=== PATIENT | female | born 1970 | race Caucasian/White ===

== ENCOUNTER 2022-09-04 08:23 | Outpatient (OUT) | payer BC, SELFPAY ==
--- NOTE | 2022-09-04 08:36 | XR_ITS ---
The [place] [id number] Patient Name: JONATHAN BACA MRN: [id number] date: 1970 Sex: F Assigned Patient Location: [facility] Current Patient Location: [facility] Accession/Order Number: [id number] Exam Date: 09/04/2022 08:45 Report Date: 09/04/2022 09:15 At the request of: MONIKA MATTHEWS Procedure: XR lumbar spine 2-3V EXAMINATION: XR lumbar spine 2-3V HISTORY: Lumbar Radiculopathy M54.16 COMPARISON: No relevant comparison available. FINDINGS: BONES: Mild widespread spondylosis and mild to moderate facet osteoarthritis, most significant at L5-S1. No visible acute bony abnormality. DISC SPACES: Moderate narrowing L5-S1 PARASPINOUS: Negative. No paraspinous abnormality is seen. OTHER: Negative. XR/XR lumbar spine 2-3V IMPRESSION: Degenerative changes most significant at L5-S1 Electronically authenticated by: JASON LERMA Date: 09/04/2022 09:15
== END 2022-09-04 08:24 | disposition home or self-care (01) ==
LOC: RAD 08:23
PROVIDERS: PCP Family Medicine; Visit Provider Family Medicine
DX: M54.16 Radiculopathy, lumbar region (principal)
CPT/HCPCS: 72100

== ENCOUNTER 2022-09-17 14:48 | Outpatient (OUT) | payer BC, SELFPAY ==
--- NOTE | 2022-09-17 14:58 | MR_ITS ---
The [address] [address] Patient Name: JONATHAN BACA MRN: [id number] date: 1970 Sex: F Assigned Patient Location: MRI Current Patient Location: MRI Accession/Order Number: [id number] Exam Date: 09/17/2022 15:00 Report Date: 09/18/2022 06:58 At the request of: MONIKA MATTHEWS Procedure: MR lumbar spine wo con MRI LUMBAR SPINE WITHOUT CONTRAST, 09/17/2022. HISTORY: Low back pain. Left buttock pain. COMPARISON: None. TECHNIQUE: Sagittal T1, T2, STIR, axial T1 and T2 images obtained. FINDINGS: Normal alignment. No acute compression fracture. Signal in the bone marrow spaces normal. No bone marrow edema. No suspicious osseous lesions. L5-S1, severe degenerative disc disease. There is disc space narrowing and irregularity of the endplates as well as implant osteophytes. No spinal stenosis. Mild left foraminal narrowing. L4-L5, moderate facet arthropathy. Mild disc desiccation. The disc spaces normal in height. No spinal stenosis. No foraminal narrowing. L3-L4, no spinal stenosis. No foraminal narrowing. L2-L3, no spinal stenosis. No foraminal narrowing. L1-L2, no spinal stenosis. No foraminal narrowing. No abnormal signal in the conus medullaris. No paraspinal mass. MR/MR lumbar spine wo con IMPRESSION: 1. Severe degenerative disc disease at L5-S1. No spinal stenosis. Mild left foraminal narrowing. 2. No spinal stenosis or foraminal narrowing at the remainder of the lumbar levels. 3. Normal alignment. No acute compression fractures. Electronically authenticated by: JOHN PAUL WILLARD Date: 09/18/2022 06:58
== END 2022-09-17 14:49 | disposition home or self-care (01) ==
LOC: MRI 14:49
PROVIDERS: PCP Family Medicine; Visit Provider Family Medicine
DX: M54.16 Radiculopathy, lumbar region (principal); M51.37 Other intervertebral disc degeneration, lumbosacral region; M99.73 Connective tissue and disc stenosis of intervertebral foramina of lumbar region
CPT/HCPCS: 72148

== ENCOUNTER 2022-10-20 08:46 | Outpatient (OUT) | payer BC, SELFPAY ==
[2022-10-20 09:02] LABS: Basophils Percent Auto 0.5 % (0.2-2.0); Eosinophils Absolute Auto 0.1 10^3/uL (0.0-0.7); Eosinophils Percent Auto 1.2 % (0.9-7.0); Hematocrit 47.3 % (36.0-48.0); Hemoglobin 14.4 g/dL (12.0-16.0); Immature Granulocytes Abs Auto 0.02 10^3/uL (0.00-0.03); Immature Granulocytes Pct Auto 0.2 % (0.0-0.5); Lymphocytes Absolute Auto 3.2 10^3/uL (1.2-3.8); Lymphocytes Percent Auto 35.8 % (20.5-60.0); Mean Corpuscular HGB Conc 30.4 g/dL (29.9-35.2); Mean Corpuscular Hemoglobin 27.6 pg (26.7-34.0); Mean Corpuscular Volume 90.6 fL (81.0-99.0); Monocytes Absolute Auto 0.5 10^3/uL (0.3-0.8); Monocytes Percent Auto 5.5 % (1.7-12.0); Neutrophils Percent Auto 56.8 % (43.0-75.0); Platelet Count 324 10^3/uL (150-450); Red Blood Count 5.22 10^6/uL (4.20-5.40); Red Cell Distribution Width 13.2 % (11.0-15.0); White Blood Count 8.9 10^3/uL (4.0-11.0)
--- NOTE | 2022-10-20 09:40 | MM_ITS ---
Patient: JONATHAN BACA Exam Date: 10/20/2022 : 1970 Gender:F Ordering : DR MONIKA MATTHEWS . Admission #: [id number] Family : Order #: [id number] CLICK HERE TO VIEW EXAM RADIOLOGY REPORT PROCEDURE: MM TOMOSYNTHESIS SCREENING BI COMPARISON: MG MAMM SCREEN 3D DUSTIN CAD, 05/08/2020. MG MAMM SCREEN 3D DUSTIN CAD, 09/17/2021. INDICATIONS: Screening Z12.31 Calculator Name NCI Breast Cancer Risk Assessment Tool 5 Year Breast Cancer Risk 1.00% Lifetime Breast Cancer Risk 9.40% Personal Breast Cancer No Personal Ovarian Cancer No Treatments None Family Cancers None LOCATION: [facility] BREAST COMPOSITION: Scattered areas fibroglandular density. FINDINGS: DIAGNOSTIC CATEGORY 1--NEGATIVE. NO CHANGE FROM COMPARISON ASSESSMENT. Scattered benign-appearing nodules are present. Scattered benign-appearing calcifications are present. Scattered benign-appearing lymph nodes are present. RIGHT BREAST: No significant suspicious finding. Stable micro clip marker upper outer quadrant, anterior breast LEFT BREAST: No significant suspicious finding. RECOMMENDATIONS: ROUTINE MAMMOGRAM AND CLINICAL EVALUATION IN 12 MONTHS. PLEASE NOTE: A NORMAL MAMMOGRAM DOES NOT EXCLUDE THE POSSIBILITY OF BREAST CANCER. A CLINICALLY SUSPICIOUS PALPABLE LUMP SHOULD BE BIOPSIED. Dictated by: Walter Dee MD on 10/20/2022 at 11:20 Approved by: Walter Dee MD on 10/20/2022 at 11:25
[2022-10-20 09:50] LABS: Estimated Average Glucose 105 mg/dL; Glycohemoglobin A1C 5.3 % (4.5-6.2)
[2022-10-20 10:00] LABS: Chol HDL Ratio 3.7; Cholesterol 197 mg/dL (<=200); HDL Cholesterol 53 mg/dL (40-60); LDL Cholesterol Calculated 118.8 mg/dL; Thyroid Stimulating Hormone 2.466 uIU/mL (0.358-3.740); Triglycerides 126 mg/dL (<=150); VLDL CHOLESTEROL 25.2 mg/dL
== END 2022-10-20 08:47 | disposition home or self-care (01) ==
LOC: LAB 08:46
PROVIDERS: PCP Family Medicine; Visit Provider Family Medicine
DX: Z00.00 Encounter for general adult medical examination without abnormal findings (principal); Z12.31 Encounter for screening mammogram for malignant neoplasm of breast
CPT/HCPCS: 36415; 77063; 77067; 80061; 83036; 84443; 85025

== ENCOUNTER 2022-11-02 08:00 | Outpatient (OUT) | payer BC, SELFPAY ==
--- NOTE | 2022-11-02 09:05 | PM.CN ---
Consult Note: HPI Data of Consult Patient: new to practice Consult date: 11/02/22 Requesting Physician: Harish Cannon MD Primary Care Provider: Romero Dykes MD Consult Narrative Reason for consult: low back pain Narrative: pleasant 52yof who presents for evaluation. worsening low back and left hip pain, has been ongoing for years, but continues to worsen. has not had relief with chiropractor recently or provider directed home exercise program >6 weeks. lumbar mri was reviewed, which is significant for severe degenerative disc disease and facet arthropathy in lower lumbar spine. utilizes ibuprofen as needed, which helps. denies adverse medication side effects or loss of bowel or bladder control. cc:: CC: Harish Cannon MD Review of Systems ROS Status of ROS 10 or more systems reviewed and unremarkable except as noted in history and below Exam Narrative Exam Narrative: Psych-alert and oriented x 3. Attentive and appropriate, constitutionally normal, displays normal mood and affect per situation.? There are no obvious deficits in memory, reasoning, or intellect.? Skin-no obvious rashes, bruising, erythema noted to the patient's area of pain. Extremities- extremities are warm with minimal edema and palpable pulses. Lumbar-no significant tenderness to palpation noted in the lumbar spine and paraspinal musculature.? Pain is elicited with extension, and lateral rotation of the lumbar spine. Range of motion is slightly diminished with these motions due to pain. Facet loading maneuvers are positive bilaterally and do appear to be concordant with the patient's normal complaints of pain.? Coordination remains intact.? Gait remains non-antalgic. Assessment and Plan Assessment and Plan (1) Lumbar spondylosis: (2) Lumbar stenosis: Plan 52yof who presents for evaluation. failed conservative measures, as noted above. imaging reviewed, as noted above. given symptoms and imaging findings, prudent to attempt diagnostic bilateral l4-5, l5-s1 medial branch blocks under fluoroscopic guidance with intention of proceeding to radiofrequency ablation. she is in agreement. medications reviewed. no changes made, encouraged to continue ibuprofen as needed. follow up after procedure.
== END 2022-11-02 08:01 | disposition home or self-care (01) ==
LOC: PM 08:00
PROVIDERS: PCP Family Medicine; Visit Provider Anesthesiology
DX: M47.816 Spondylosis without myelopathy or radiculopathy, lumbar region (principal); M48.061 Spinal stenosis, lumbar region without neurogenic claudication
CPT/HCPCS: G0463

== ENCOUNTER 2022-11-23 07:09 | Day surgery (SDC) | payer BC, SELFPAY ==
[2022-11-23 07:36] VITALS: BP 130/91; PULSE 95; RESP 16; TEMP 36.7; O2SAT 96
[2022-11-23 08:16] VITALS: BP 135/73; PULSE 90; RESP 16; O2SAT 97
[2022-11-23] MEDS: BUPIVACAINE HCL 0.5% PF 50 MG/10 ML VIAL 8 ML INJ (08:18)
[2022-11-23] MEDS: LIDOCAINE HCL 2% PF 100 MG/5 ML VIAL INJ (08:18)
[2022-11-23] MEDS: TRIAMCINOLONE ACETONIDE 40 MG/ML VIAL 80 MG INJ (08:18)
[2022-11-23 08:21] VITALS: BP 138/72; PULSE 89; RESP 17; O2SAT 97
--- NOTE | 2022-11-23 08:21 | W.PM.PROCNOT ---
Date of procedure: 11/23/22 Pre-op diagnosis: Lumbosacral spondylosis Post-op diagnosis: same as pre-op Procedure: Procedure: Bilateral L4-5, L5-S1 medial branch block Medications: Bupivacaine 0.25% 4cc The patient was seen and examined in the preoperative holding area.? An informed consent was obtained and placed on the chart.? The patient was brought to the medical procedure unit and placed in the prone position.? A timeout was completed verifying correct patient, procedure site, positioning, plan, and special equipment.? Using aseptic technique, the needle was placed at left L4. Under direct fluoroscopic visualization a Quincke-tipped spinal needle was advanced to the junction of the superior articulating process with the transverse process at the designated medial branch segment.? Preceded by negative aspiration, the above-mentioned injectate was placed in 1 mL aliquots.? The procedure was repeated at left L5, S1.? The needle was removed and insertion site was covered. The same procedure, at the same levels, was completed on the right side. The patient was taken to the postprocedural recovery area and monitored for an appropriate length of time before found suitable for discharge in the company of a responsible adult. Anesthesia: Local Surgeon: Harish Cannon Pathology: none sent Condition: stable Disposition: no change
== END 2022-11-23 08:26 | disposition home or self-care (01) ==
PROVIDERS: PCP Family Medicine; Visit Provider Anesthesiology
DX: M47.817 Spondylosis without myelopathy or radiculopathy, lumbosacral region (principal)
CPT/HCPCS: 64493; 64494

== ENCOUNTER 2022-12-02 08:02 | Outpatient (OUT) | payer BC, SELFPAY ==
--- NOTE | 2022-12-02 08:11 | P.CN_ITS ---
Consult Note: HPI Data of Consult Patient: known to practice within the last 3 years Requesting Physician: Therese Montelongo NP Primary Care Provider: Romero Dykes MD Consult Narrative Reason for consult: F/u Narrative: Barbara Ovalle a pleasant 52 year old female presents for evaluation of chronic low back pain. Patient recently underwent Bilateral L4-5, L5-S1 medial branch block #1 with >80% pain relief and functional improvement immediately following and 3 days after the procedure. Patient did not have to take motrin during this time. Today rating pain 4/10 in low back pain without radiculopathy. Patient has cancelled her follow up appointments with Neurosurgery at this time. Would like to discuss proceeding with MBB #2 working towards thermal RFA. cc:: CC: Therese Montelongo NP Review of Systems ROS Status of ROS 10 or more systems reviewed and unremarkable except as noted in history and below [facility] Medical History (Updated 12/02/22 @ 08:35 by Therese Montelongo NP) Low back ache ?M54.50 - Low back pain, unspecified (ICD-10) Obesity ?E66.9 - Obesity, unspecified (ICD-10) Surgical History (Updated 11/13/22 @ 10:46 by Noris Smith) H/O tooth extraction ?K08.409 - Partial loss of teeth, unspecified cause, unspecified class (ICD- 10) H/O: hysterectomy ?Z90.710 - Acquired absence of both cervix and uterus (ICD-10) Meds Home Medications and Allergies Home Medications Medication Instructions Recorded Confirmed Type ibuprofen 200 mg capsule 800 mg PO Q12H PRN pain 11/02/22 11/23/22 History loratadine-pseudoephedrine ER 10 1 tab PO DAILY 11/02/22 11/23/22 History mg-240 mg tablet,extended [id number] (Claritin-D 24 Hour) Allergies Allergy/AdvReac Type Severity Reaction Status Date / Time No Known Drug Allergies Allergy Verified 11/23/22 07:33 Exam Constitutional Documenting provider has reviewed patient's vital signs: yes Common normals: no apparent distress, oriented x3, healthy appearing, alert and well nourished General appearance: cooperative Nutritional appearance: obese HENMT Common normals: normocephalic, hearing grossly normal bilaterally and moist oral mucous membranes Head and scalp: normocephalic Eye Common normals: PERRL Pupil: PERRL Neck & C-Spine Common normals: full ROM General: normal visual inspection Chest Common normals: inspection of chest normal Respiratory Common normals: normal respiratory effort, no retractions and no use of accessory muscles Back & Pelvis Common normals: no CVA tenderness Lumbar spine/lower back: ROM limited, pain with ROM and straight leg raise negative bilaterally Sacroiliac joints: SI joints normal Other: bilateral facet loading pain over L4-5 L5-S1 no radiculopathy axial low back pain Extremity Common normals: normal to inspection and full ROM Neuro Common normals: oriented x3, CN's II-XII intact bilaterally, moves all e xtremities, no focal motor deficits, no sensory deficits noted, deep tendon reflexes 2+ bilaterally and gait normal Sensorium/orientation: alert Motor exam: strength 5/5 throughout and no movement abnormalities noted Psych Common normals: mental status grossly normal, thought process normal, cooperativ e, affect normal, speech normal and activity/motor behavior normal Speech: normal speech Thought process: normal thought process Results Additional Findings Additional findings: I have checked an OARRS report on this patient today and there are no aberrancies noted in the prescribing history.?? A drug screen was completed and reviewed within the last year, and if there has not been a drug screen completed we ordered one today to monitor higher risk, state monitored pain medication use. As part of providing excellent, safe, comprehensive care, the following was completed at our patient's visit: 1. A medication reconciliation and review to ensure accurate knowledge of current/active medications, including asking our patients to inform us about any oxlq-nee-qhfnwlc medications or herbal remedies/nutritional supplements/alternative remedies. 2. A review to specifically ensure our patients have had annual screening for: elevated body mass index (BMI), tobacco use, screening for depression, and screening for unhealthy alcohol use. When screening is concerning, patients are provided with education and the specific recommendation to discuss the concerning health issue and treatment options with their primary care provider. Assessment and Plan Assessment and Plan (1) Lumbar spondylosis: Assessment and Plan: The patient has had over 3 months of moderate to severe low back pain with functional impairment and inadequate response to conservative care including NSAIDS (unless there are contraindication such as concurrent blood thinners), multiple oral or topical pain medications, and home exercise program/physical therapy. ? Patient has completed >6 weeks of guided home exercise program and/or formal physical therapy program without relief of their symptoms.? I have reviewed the imaging of the lumbar spine and no red flags were identified.? The imaging reveals radiographic findings consistent with lumbar facet arthropathy and lumbar spondylosis The Oswestry Disability Index was completed, and the patient scored a 36%.? The patient noted the following:?? moderate pain, pain with ADLs, pain prevents her from lifting heavy weights, pain prevents her from sitting more than 1 hour, pain prevents her from standing more than 30 minutes, because of pain she has less than 4 hours of sleep. We discussed the risks and benefits of the procedure with the patient, and we are NOT planning on using sedation as outlined in the guidelines from Medicare unless there is a documented reason that sedation would be strongly recomme nded.?? The procedure will be completed with fluoroscopic guidance.? (2) Lumbar stenosis: Assessment and Plan: no radiculopathy (3) Muscle spasm: Plan -bilateral L4-5 L5-S1 MBB #2 under fluoroscopy working towards a thermal RFA -start tizanidine 4mg tabs 1-2 tabs BID PRN muscle spasms -continue HEP -continue OTC pain relievers PRN -f/u 1 week after injection
== END 2022-12-02 08:03 | disposition home or self-care (01) ==
PROVIDERS: PCP Family Medicine; Visit Provider Nurse Practitioner
DX: M47.896 Other spondylosis, lumbar region (principal); M48.061 Spinal stenosis, lumbar region without neurogenic claudication; M62.838 Other muscle spasm
CPT/HCPCS: G0463

== ENCOUNTER 2022-12-07 06:54 | Day surgery (SDC) | payer BC, SELFPAY ==
[2022-12-07 07:11] VITALS: BP 138/88; PULSE 97; RESP 16; TEMP 36.2; O2SAT 97
[2022-12-07 07:45] VITALS: BP 146/70; PULSE 88; RESP 18; O2SAT 94
[2022-12-07] MEDS: TRIAMCINOLONE ACETONIDE 40 MG/ML VIAL INJ (07:47)
[2022-12-07] MEDS: LIDOCAINE HCL 2% PF 100 MG/5 ML VIAL INJ (07:47)
[2022-12-07] MEDS: BUPIVACAINE HCL 0.5% PF 50 MG/10 ML VIAL 8 ML INJ (07:47)
--- NOTE | 2022-12-07 07:48 | W.PM.PROCNOT ---
Date of procedure: 12/07/22 Pre-op diagnosis: lumbar spondylosis Post-op diagnosis: same as pre-op Procedure: Procedure: Bilateral L4-5, L5-S1 medial branch block Medications: Bupivacaine 0.25% 4cc The patient was seen and examined in the preoperative holding area.? An informed consent was obtained and placed on the chart.? The patient was brought to the medical procedure unit and placed in the prone position.? A timeout was completed verifying correct patient, procedure site, positioning, plan, and special equipment.? Using aseptic technique, the needle was placed at left L4. Under direct fluoroscopic visualization a Quincke-tipped spinal needle was advanced to the junction of the superior articulating process with the transverse process at the designated medial branch segment.? Preceded by negative aspiration, the above-mentioned injectate was placed in 1 mL aliquots.? The procedure was repeated at left L5, S1.? The needle was removed and insertion site was covered. The same procedure, at the same levels, was completed on the right side. The patient was taken to the postprocedural recovery area and monitored for an appropriate length of time before found suitable for discharge in the company of a responsible adult. Anesthesia: Local Surgeon: Harish Cannon Pathology: none sent Condition: stable Disposition: no change
[2022-12-07 07:49] VITALS: BP 132/62; PULSE 88; RESP 18; O2SAT 96
== END 2022-12-07 07:52 | disposition home or self-care (01) ==
PROVIDERS: PCP Family Medicine; Visit Provider Anesthesiology
DX: M47.816 Spondylosis without myelopathy or radiculopathy, lumbar region (principal)
CPT/HCPCS: 64493; 64494

== ENCOUNTER 2022-12-16 07:45 | Outpatient (OUT) | payer BC, SELFPAY ==
--- NOTE | 2022-12-16 08:10 | P.CN_ITS ---
Consult Note: HPI Data of Consult Patient: known to practice within the last 3 years Requesting Physician: Therese Montelongo NP Primary Care Provider: Romero Dykes MD Consult Narrative Narrative: Barbara Ovalle a pleasant 52 year old female presents for evaluation and management of low back pain. Today rating pain 2/10 and describes it as an ache. Patient had >80% pain relief and functional improvement immediately following and days after MBB #2 at bilateral L4-5 L5-S1. Patient has found benefit to PRN Tizanidine. Patient would like to discuss thermal RFA now that she has completed 2 diagnostic blocks. cc:: CC: Therese Montelongo NP Review of Systems ROS Status of ROS 10 or more systems reviewed and unremarkable except as noted in history and below Musculoskeletal Reports: back pain PFSH PFSH Medical History Low back ache ?M54.50 - Low back pain, unspecified (ICD-10) Obesity ?E66.9 - Obesity, unspecified (ICD-10) Surgical History H/O tooth extraction ?K08.409 - Partial loss of teeth, unspecified cause, unspecified class (ICD- 10) H/O: hysterectomy ?Z90.710 - Acquired absence of both cervix and uterus (ICD-10) Meds Home Medications and Allergies Home Medications Medication Instructions Recorded Confirmed Type ibuprofen 200 mg capsule 800 mg PO Q12H PRN pain 11/02/22 12/07/22 History loratadine-pseudoephedrine ER 10 1 tab PO DAILY 11/02/22 12/07/22 History mg-240 mg tablet,extended [id number] (Claritin-D 24 Hour) tizanidine 4 mg tablet 4 mg PO BID PRN muscle spasticity 12/02/22 12/07/22 Rx #45 tabs Allergies Allergy/AdvReac Type Severity Reaction Status Date / Time No Known Drug Allergies Allergy Verified 12/07/22 07:09 Exam Constitutional Documenting provider has reviewed patient's vital signs: yes Common normals: no apparent distress, oriented x3, healthy appearing, alert and well nourished General appearance: cooperative Nutritional appearance: obese HENMT Common normals: normocephalic, hearing grossly normal bilaterally and moist oral mucous membranes Head and scalp: normocephalic Eye Common normals: PERRL Pupil: PERRL Neck & C-Spine Common normals: full ROM General: normal visual inspection Chest Common normals: inspection of chest normal Respiratory Common normals: normal respiratory effort, no retractions and no use of accessory muscles Back & Pelvis Common normals: no CVA tenderness Lumbar spine/lower back: ROM limited, pain with ROM and straight leg raise negative bilaterally Sacroiliac joints: SI joints normal Other: bilateral facet loading pain over L4-5 L5-S1 no radiculopathy axial low back pain Extremity Common normals: normal to inspection and full ROM Neuro Common normals: oriented x3, CN's II-XII intact bilaterally, moves all extremities, no focal motor deficits, no sensory deficits noted and deep tendon reflexes 2+ bilaterally Sensorium/orientation: alert Motor exam: strength 5/5 throughout and no movement abnormalities noted Psych Common normals: mental status grossly normal, thought process normal, cooperative, affect normal, speech normal and activity/motor behavior normal Speech: normal speech Thought process: normal thought process Results Additional Findings Additional findings: I have checked an OARRS report on this patient today and there are no aberrancies noted in the prescribing history.?? A drug screen was completed and reviewed within the last year, and if there has not been a drug screen completed we ordered one today to monitor higher risk, state monitored pain medication use. As part of providing excellent, safe, comprehensive care, the following was completed at our patient's visit: 1. A medication reconciliation and review to ensure accurate knowledge of current/active medications, including asking our patients to inform us about any ujzx-dsg-oazliim medications or herbal remedies/nutritional supplements/alternative remedies. 2. A review to specifically ensure our patients have had annual screening for: elevated body mass index (BMI), tobacco use, screening for depression, and screening for unhealthy alcohol use. When screening is concerning, patients are provided with education and the specific recommendation to discuss the concerning health issue and treatment options with their primary care provider. Assessment and Plan Assessment and Plan (1) Lumbar spondylosis: Assessment and Plan: The patient has had over 3 months of moderate to severe low back pain with functional impairment and inadequate response to conservative care including NSAIDS (unless there are contraindication such as concurrent blood thinners), multiple oral or topical pain medications, and home exercise program/physical therapy.? Patient has completed >6 weeks of guided home exercise program and/or formal physical therapy program without relief of their symptoms. I have reviewed the imaging of the lumbar spine and no red flags were identified.? The imaging reveals radiographic findings consistent with lumbar spondylosis The Oswestry Disability Index was completed, and the patient scored a 26%.? The patient noted the following:?? mild pain, pain with lifting heavy weights, pain that impacts personal care, pain that prevents her from sitting and standing more than 1 hour, pain that prevents her from walking more than 1 mile We discussed the risks and benefits of the procedure with the patient The procedure will be completed with fluoroscopic guidance.? (2) Muscle spasm: Plan -bilateral L4-5 L5-S1 thermal RFA with 10mg PO Valium prior to procedure -continue current medications -continue HEP -f/u 1 month after thermal RFA
== END 2022-12-16 07:46 | disposition home or self-care (01) ==
LOC: PM 07:56
PROVIDERS: PCP Family Medicine; Visit Provider Nurse Practitioner
DX: M47.816 Spondylosis without myelopathy or radiculopathy, lumbar region (principal); M62.838 Other muscle spasm
CPT/HCPCS: G0463

== ENCOUNTER 2023-01-11 08:10 | Day surgery (SDC) | payer BC, SELFPAY ==
[2023-01-11 08:50] VITALS: BP 135/88; PULSE 87; RESP 16; TEMP 36.7; O2SAT 96
[2023-01-11 09:39] VITALS: BP 136/71; PULSE 86; RESP 18; O2SAT 98
[2023-01-11] MEDS: LIDOCAINE HCL 2% 400 MG/20 ML MDV 18 ML INJ (09:39)
[2023-01-11] MEDS: BUPIVACAINE HCL 0.25% PF 25 MG/10 ML VIAL 4 ML INJ (09:39)
[2023-01-11 09:46] VITALS: PULSE 82; RESP 18; O2SAT 97
[2023-01-11 09:47] VITALS: BP 137/71
--- NOTE | 2023-01-11 09:52 | P.ON_ITS ---
Date of procedure: 01/11/23 Pre-op diagnosis: Lumbar spondylosis Post-op diagnosis: same as pre-op Procedure: Procedure: Bilateral L4-5, L5-S1 radiofrequency ablation Medications: Bupivacaine 0.5% 4cc, lidocaine 2% 5cc, kenalog 80mg The patient was seen and examined in the preoperative holding area.? The site was marked.? Written informed consent was obtained and placed on the chart.? The patient was brought to the medical procedure unit and placed in the prone position.? A timeout was completed verifying correct patient, procedure, positioning, and special requirements.? The skin overlying the target points, the designated medial branch, were prepped and draped in the usual sterile fashion.? The target point was achieved with a 20-gauge 15 cm with a 10 mm curved active tip radiofrequency cannula under direct fluoroscopic visualization.? The needle was inserted at level L4 on the right side. Needle tip position was confirmed with lateral fluoroscopic position.? Motor stimulation was carried out at 2 Hz up to 5 volts with the absence of extremity activity.? This was repeated at level L5, S1 on right side.?? Sensory stimulation was carried out.? Concordant pain was realized at the above- mentioned sites.? Then radiofrequency lesioning was carried out times 90 seconds at 80 degrees times 2 lesions at each level.? The radiofrequency probe was removed prior to cannula removal.? The above-mentioned injectate was placed in 1 mL increments.? The needle was removed. The same procedure, with the same steps, was then completed on the left side at the same levels. Insertion sites were covered.? The patient was taken to the postoperative recovery area and monitored for an appropriate length of time before being found suitable for discharge in the company of a responsible adult. Anesthesia: Local Surgeon: Harish Cannon Pathology: none sent Condition: stable Disposition: no change
[2023-01-11] MEDS: TRIAMCINOLONE ACETONIDE 40 MG/ML VIAL 80 MG INJ (12:00)
== END 2023-01-11 09:56 | disposition home or self-care (01) ==
PROVIDERS: PCP Family Medicine; Visit Provider Anesthesiology
DX: M47.816 Spondylosis without myelopathy or radiculopathy, lumbar region (principal)
CPT/HCPCS: 64635; 64636

== ENCOUNTER 2023-02-04 07:36 | Outpatient (OUT) | payer BC, SELFPAY ==
--- NOTE | 2023-02-04 07:58 | P.CN_ITS ---
Consult Note: HPI Data of Consult Patient: known to practice within the last 3 years Requesting Physician: Therese Montelongo NP Primary Care Provider: Romero Dykes MD Consult Narrative Reason for consult: f/u Narrative: Barbara Ovalle a pleasant 52 year old female presents for evaluation and management of low back pain. Today rating pain 5/10 and describes it as an ache. Patient initially reported 50% relief from bilateral L4-5 L5-s1 thermal RFA, however she is noticing increase in her pain and discomfort in sacral area bilaterally, left worse than right and pain over left buttock. Patient would like to discuss options today, reported she cannot afford to continue procedures and injections. cc:: CC: Therese Montelongo NP Review of Systems 2 ROS0 Status of ROS 10 or more systems reviewed and unremark able except as noted in history and below Musculoskeletal Reports: back pain PFSH PFSH Medical History Low back ache ?M54.50 - Low back pain, unspecified (ICD-10) Obesity ?E66.9 - Obesity, unspecified (ICD-10) Surgical History H/O tooth extraction ?K08.409 - Partial loss of teeth, unspecified cause, unspecified class (ICD- 10) H/O: hysterectomy ?Z90.710 - Acquired absence of both cervix and uterus (ICD-10) Meds Home Medications and Allergies Home Medications Medication Instructions Recorded Confirmed Type ibuprofen 200 mg capsule 800 mg PO Q12H PRN pain 11/02/22 01/11/23 History loratadine-pseudoephedrine ER 10 1 tab PO DAILY 11/02/22 01/11/23 History mg-240 mg tablet,extended [id number] (Claritin-D 24 Hour) tizanidine 4 mg tablet 4 mg PO BID PRN muscle spasticity 12/02/22 01/11/23 Rx #45 tabs diazepam 10 mg tablet mg 01/11/23 History Allergies Allergy/AdvReac Type Severity Reaction Status Date / Time No Known Drug Allergies Allergy Verified 01/11/23 08:48 Exam Constitutional Documenting provider has reviewed patient's vital signs: yes Common normals: no apparent distress, oriented x3, healthy appearing, alert and well nourished General appearance: cooperative Nutritional appearance: obese HENMT Common normals: normocephalic, hearing grossly normal bilaterally and moist oral mucous membranes Head and scalp: normocephalic Eye Common normals: PERRL Pupil: PERRL Neck & C-Spine Common normals: full ROM General: normal visual inspection Chest Common normals: inspection of chest normal Respiratory Common normals: normal respiratory effort, no retractions and no use of accessory muscles Back & Pelvis Common normals: no CVA tenderness Lumbar spine/lower back: straight leg raise negative bilaterally Sacroiliac joints: SI joint(s) abnormal Other: negative facet loading, no radiculopathy pain over area noted below, positive ROBBI/FADIR negative internal and external rotation Back image (female): 2 1. Extremity Common normals: normal to inspection and full ROM Neuro Common normals: oriented x3, CN's II-XII intact bilaterally, moves all extremities, no focal motor deficits, no sensory deficits noted and deep tendon reflexes 2+ bilaterally Sensorium/orientation: alert Motor exam: strength 5/5 throughout and no movement abnormalities noted Psych Common normals: mental status grossly normal, thought process normal, cooperative, affect normal, speech normal and activity/motor behavior normal Speech: normal speech Thought process: normal thought process Results Additional Findings Additional findings: I have checked an [facility] report on this patient today and there are no aberrancies noted in the prescribing history.?? A drug screen was completed and reviewed within the last year, and if there has not been a drug screen completed we ordered one today to monitor higher risk, state monitored pain medication use. As part of providing excellent, safe, comprehensive care, the following was completed at our patient's visit: 1. A medication reconciliation and review to ensure accurate knowledge of current/active medications, including asking our patients to inform us about any [id number] medications or herbal remedies/nutritional supplements/alternative remedies. 2. A review to specifically ensure our patients have had annual screening for: elevated body mass index (BMI), tobacco use, screening for depression, and screening for unhealthy alcohol use. When screening is concerning, patients are provided with education and the specific recommendation to discuss the concerning health issue and treatment options with their primary care provider. Assessment and Plan Assessment and Plan (1) Lumbar spondylosis: (2) Muscle spasm: (3) Sacroiliitis: (4) Piriformis syndrome of left side: Plan continue tizanidine 4mg 1-2 tabs BID PRN tens unit discussed and ordered xray of bilateral SIJ start HEP for left piriformis syndrome continue PRN Mobic through PCP, call to rotate NSAIDs f/u 1 month. This is an active healing phase for lumbar RFAs I would like to reassess in 1 month
--- OUTSIDE RECORDS SUMMARY | 2023-02-04 10:27 | XMS_ITS | CCD ---
Author Name Unknown Address [address] [place] [address] Organization [facility] Care Team Providers Care Rail Transit Operator Name Role Phone Monika Matthews Primary Care Physician CASSIE, DR FRANK Admitting Unavailable CASSIE, DR FRANK Attending Unavailable CASSIE, DR FRANK Primary Care Unavailable CASSIE, DR FRANK Consulting Unavailable ZIEBER, DR ANUPAM Bailey Consulting Unavailable CASSIE, DR FRANK Admitting Unavailable CASSIE, DR FRANK Attending Unavailable CASSIE, DR FRANK Primary Care Unavailable GINNY, SALVADOR Admitting Unavailable GINNY, SALVADOR Attending Unavailable CASSIE, DR FRANK Primary Care Unavailable GINNY, SALVADOR Consulting Unavailable GINNY, SALVADOR Admitting Unavailable GINNY, SALVADOR Attending Unavailable CASSIE, DR FRANK Primary Care Unavailable GINNY, SALVADOR Consulting Unavailable GINNY, SALVADOR Admitting Unavailable GINNY, SALVADOR Attending Unavailable CASSIE, DR FRANK Primary Care Unavailable GINNY, SALVADOR Consulting Unavailable CASSIE, DR FRANK Admitting Unavailable CASSIE, DR FRANK Attending Unavailable CASSIE, DR FRANK Primary Care Unavailable CASSIE, DR FRANK Consulting Unavailable Gihermila GARNICA, Harish Olivier Attending Unavailable Giazraitis , Harish Olivier Attending Unavailable Giazraitis , Harish Olivier Attending Unavailable Gihermila GARNICA, Harish Olivier Attending Unavailable Medications Current Medications Medication Drug Class(es) Dates Sig (Normalized) Sig (Original) diclofenac sodium 75 mg delayed release oral tablet (1 source) Nonsteroidal Anti-inflammatory Drug Start: 09-03-2021 take 1 mg by mouth twice daily diclofenac sodium 75 mg Oral EC Tab mg tab(s), Oral, BID, Refills(s) 0 Start Date: 09/03/21 Status: Ordered 24 hr loratadine 10 mg / pseudoephedrine sulfate 240 mg extended release oral tablet (1 source) alpha-Adrenergic Agonist Start: 09-03-2021 take 1 tablet by mouth once daily loratadine-pseud oephedrine 10 mg-240 mg ER Tab tab(s), Oral, Daily, Refill(s) 0 Start Date: 09/03/21 Status: Ordered phentermine hydrochloride 37.5 mg oral tablet (1 source) Sympathomimetic Amine Anorectic Start: 09-03-2021 take 1 tablet by mouth once daily phentermine 37.5 mg Tab 37.5 mg = 1 tab(s), Oral, Daily, Refills(s) 0 Start Date: 09/03/21 Status: Ordered Problems Active Problems Problem Classification Problem Date Documented Da te Episodic/Chronic Genitourinary symptoms and ill-defined conditions (1 source) Stress incontinence (female) (male); Translations: [Stress incontinence (female) (male)] Onset: 09-03-2021 Chronic Unclassified (3 sources) CONTACT W/AND (SUSP) EXPOS COVID-19; Translations: [CONTACT W/AND (SUSP) EXPOS COVID-19] Onset: 12-17-2021 Viral infection (1 source) COVID-19; Translations: [COVID-19] Onset: 12-11-2021 Past or Other Problems Problem Classification Problem Date Documented Da te Episodic/Chronic Other screening for suspected conditions (not mental disorders or infectious disease) (4 sources) Encounter for screening mammogram for malignant neoplasm of breast; Translations: [ENC SCR MAMMO MALIG NEOPLASM BREAST] Onset: 09-17-2021 Episodic Other skin disorders (1 source) Nonscarring hair loss, unspecified; Translations: [NONSCARRING HAIR LOSS UNSPECIFIED] Onset: 08-05-2021 Episodic Unclassified (1 source) CONTACT W/AND (SUSP) EXPOS COVID-19; Translations: [CONTACT W/AND (SUSP) EXPOS COVID-19] Onset: 12-15-2021 Results Test Name Value Interpretation Reference Range [facility] SARS-CoV-2 (COVID-19) RNA YAMILET+probe Ql (Unsp spec) Not detected Normal NOT DETECTED [facility] Comment on above: Result Comment: When diagnostic testing is negative, the possibility of a false negative should be considered in the context of a patient's recent exposures and the presence of clinical signs and symptoms consistent with SARS-CoV-2. This test is not yet approved or cleared by the [place] FDA. When there are no FDA-approved or cleared tests available, and other criteria are met, FDA can make tests available under an emergency access mechanism called an Emergency Use Authorization (EUA). The EUA for this test is supported by the [place] of Health and Human Service's declaration that circumstances exist to justify the emergency use of in vitro diagnostics for the detection and/or diagnosis of the virus that causes COVID-19. This EUA will remain in effect for the duration of the COVID-19 declaration justifying emergency of IVDs, unless it is terminated or revoked by the FDA (after which the test may no longer be used). Performed By: #### C VDTB ####[facility] [id number] [address]Dr. Dioni Mayorga INFLUENZA A AND B AGon 03-02 [facility] SEE BELOW Normal [facility] Comment on above: Result Comment: Nega tive for Flu A protein angiten. Infection due to Flu A cannot be ruled out. Flu A angiten in the sample may be below the detection limit of the test. Performed By: #### I NFLUAB #### [facility] [address] [place] [address] Dr. Dioni [facility] Normal [facility] Comment on above: Result Comment: Nega tive for Flu B protein antigen. Infection due to Flu B cannot be ruled out. Flu B antigen in the sample may be below the detection limit of the test. Performed By: #### I NFLUAB #### [facility] [address] [address] [address] Dioni Mayorga INFLUENZA A AG Negative Normal NEGATIVE SEE COMMENT [facility] Comment on above: Performed By: #### I NFLUAB #### [facility] [address] [address] [address] Dioni Mayorga INFLUENZA B AG Negative Normal NEGATIVE SEE COMMENT [facility] Comment on above: Performed By: #### I NFLUAB #### [facility] [address] [place] [address] Dr. Dioni Mayorga ASYMPTOMATIC COVID-19 ANTIGE Non 12-15-2021 EUA Statement SEE BELOW Normal [facility] Comment on above: Result Comment: This test has not been FDA cleared or approved, but has been authorized by the FDA under an Emergency Use Authorization (EUA) for use by authorized laboratories certified under CLIA that meet the requirements to perform moderate or high complexity testing. This test has been authorized only for the detection of proteins from SARS-CoV-2, not for any other viruses or pathogens. The emergency use of this test is authorized for the duration of the declaration that circumstances exist justifying the authorization of emergency use of in vitro diagnostic tests for detection and/or diagnosis of Covid-19 under section 564(b)(1) of the Act, 21 U.S.C. 360bbb-3(b)(1), unless the declaration is terminated or authorization is revoked sooner. Performed By: #### C VDAGA #### [facility] [address] [place] [address] Dr. Dioni Mayorga SARS-CoV-2 (COVID-19) RNA YAMILET+probe Ql (Unsp spec) Negative Normal NEGATIVE [facility] Comment on above: Result Comment: Nega tive results are presumptive. They do not preclude infection and should not be used as the sole basis for treatment decisions. Additional confirmatory testing by a molecular method should be considered. Performed By: #### C VDAGA #### [facility] [address] [place] [address] Dr. Dioni Mayorga Covid-19 PCR ([facility])on 11-16 SARS-CoV-2 (COVID-19) RNA YAMILET+probe Ql (Unsp spec) Detected Critically abnormal NOT DETECTED [facility] Comment on above: Result Comment: This test is not yet approved or cleared by the [place] FDA. When there are no FDA-approved or cleared tests available, and other criteria are met, FDA can make tests available under an emergency access mechanism called an Emergency Use Authorization (EUA). The EUA for this test is supported by the [place] of Health and Human Service's declaration that circumstances exist to justify the emergency use of in vitro diagnostics for the detection and/or diagnosis of the virus that causes COVID-19. This EUA will remain in effect for the duration of the COVID-19 declaration justifying emergency of IVDs, unless it is terminated or revoked by the FDA (after which the test may no longer be used). Performed By: #### C VDTB ####[facility] [address] [place], [place] [address]Jo. Doini Mayorga MG MAMM SCREEN 3D DUSTIN CADon 09-17-2021 MG MAMM SCREEN 3D DUSTIN CAD Patient: BARBARA BACA Exam Date: 09/17/2021 : 1970 Gender:F Ordering : DR MONIKA MATTHEWS . Admission #: [id number] Family : Order #: [id number] CLICK HERE TO VIEW EXAM RADIOLOGY REPORT PROCEDURE: MAMMOGRAM SCREENING 3D BILATERAL CAD COMPARISON: MG MAMM SCREEN 3D DUSTIN CAD, 05/08/2020. MAMMO POST BIOPSY RIGHT, 01/04/2018. INDICATIONS: Screening mammography Calculator Name NCI Breast Cancer Risk Assessment Tool 5 Year Breast Cancer Risk 1.00% Lifetime Breast Cancer Risk 9.60% Personal Breast Cancer No Personal Ovarian Cancer No Treatments None Family Cancers None LOCATION: [facility] BREAST COMPOSITION: Scattered areas fibroglandular density. FINDINGS: DIAGNOSTIC CATEGORY 2--BENIGN FINDING: RIGHT BREAST: No significant suspicious finding. Scattered benign-appearing nodules are present. No significant change has occurred. LEFT BREAST: No significant suspicious finding. Scattered benign-appearing nodules are present. No significant change has occurred. RECOMMENDATIONS: ROUTINE MAMMOGRAM AND CLINICAL EVALUATION IN 12 MONTHS. PLEASE NOTE: A NORMAL MAMMOGRAM DOES NOT EXCLUDE THE POSSIBILITY OF BREAST CANCER. A CLINICALLY SUSPICIOUS PALPABLE LUMP SHOULD BE BIOPSIED. Dictated by: Anupam Rodarte M.D. on 09/17/2021 at 13:10 Approved by: Anupam Rodarte M.D. on 09/17/2021 at 13:13 Normal [facility] Formson 09-04-2021 Forms [id number] #[id number]:127 Normal [facility] Patient Educationon 09-05-19 22 Patient Education Obstetrics and Gynecology Overactive Bladder, Adult Overactive bladder refers to a condition in which a person has a sudden need to pass urine. The person may leak urine if he or she cannot get to the bathroom fast enough (urinary incontinence). A person with this condition may also wake up several times in the night to go to the bathroom. Overactive bladder is associated with poor nerve signals between your bladder and your brain. Your bladder may get the signal to empty before it is full. You may also have very sensitive muscles that make your bladder squeeze too soon. These symptoms might interfere with daily work or social activities. What are the causes? This condition may be associated with or caused by: ? Urinary tract infection. ? Infection of nearby tissues, such as the prostate. ? Prostate enlargement. ? Surgery on the uterus or urethra. ? Bladder stones, inflammation, or tumors. ? Drinking too much caffeine or alcohol. ? Certain medicines, especially medicines that get rid of extra fluid in the body (diuretics). ? Muscle or nerve weakness, especially from: ? A spinal cord injury. ? Stroke. ? Multiple sclerosis. ? Parkinson's disease. ? Diabetes. ? Constipation. What increases the risk? You may be at greater risk for overactive bladder if you: ? Are an older adult. ? Smoke. ? Are going through menopause. ? Have prostate problems. ? Have a neurological disease, such as stroke, dementia, Parkinson's disease, or multiple sclerosis (MS). ? Eat or drink things that irritate the bladder. These include alcohol, spicy food, and caffeine. ? Are overweight or obese. What are the signs or symptoms? Symptoms of this condition include: ? Sudden, strong urge to urinate. ? Leaking urine. ? Urinating 8 or more times a day. ? Waking up to urinate 2 or more times a night. How is this diagnosed? Your health care provider may suspect overactive bladder based on your symptoms. He or she will diagnose this condition by: ? A physical exam and medical history. ? Blood or urine tests. You might need bladder or urine tests to help determine what is causing your overactive bladder. You might also need to see a health care provider who specializes in urinary tract problems (urologist). How is this treated? Treatment for overactive bladder depends on the cause of your condition and whether it is mild or severe. You can also make lifestyle changes at home. Options include: ? Bladder training. This may include: ? Learning to control the urge to urinate by following a schedule that directs you to urinate at regular intervals (timed voiding). ? Doing Kegel exercises to strengthen your pelvic floor muscles, which support your bladder. Toning these muscles can help you control urination, even if your bladder muscles are overactive. ? Special devices. This may include: ? Biofeedback, which uses sensors to help you become aware of your body's signals. ? Electrical stimulation, which uses electrodes placed inside the body (implanted) or outside the body. These electrodes send gentle pulses of electricity to strengthen the nerves or muscles that control the bladder. ? Women may use a plastic device that fits into the vagina and supports the bladder (pessary). ? Medicines. ? Antibiotics to treat bladder infection. ? Antispasmodics to stop the bladder from releasing urine at the wrong time. ? Tricyclic antidepressants to relax bladder muscles. ? Injections of botulinum toxin type A directly into the bladder tissue to relax bladder muscles. ? Lifestyle changes. This may include: ? Weight loss. Talk to your health care provider about weight loss methods that would work best for you. ? Diet changes. This may include reducing how much alcohol and caffeine you consume, or drinking fluids at different times of the day. ? Not smoking. Do not use any products that contain nicotine or tobacco, such as cigarettes and e-cigarettes. If you need help quitting, ask your health care provider. ? Surgery. ? A device may be implanted to help manage the nerve signals that control urination. ? An electrode may be implanted to stimulate electrical signals in the bladder. ? A procedure may be done to change the shape of the bladder. This is done only in very severe cases. Follow these instructions at home: Lifestyle ? Make any diet or lifestyle changes that are recommended by your health care provider. These may include: ? Drinking less fluid or drinking fluids at different times of the day. ? Cutting down on caffeine or alcohol. ? Doing Kegel exercises. ? Losing weight if needed. ? Eating a healthy and balanced diet to prevent constipation. This may include: ? Eating foods that are high in fiber, such as fresh fruits and vegetables, whole grains, and beans. ? Limiting foods that are high in fat and processed sugars, such as fried and sweet foods. General instructions ? Take ove (more content not included)... Normal [facility] Physician Referralon 022 Physician Referral [id number] 0#1.00CD:127 Normal [facility] Urology Office/Clinic Noteon 09-04-2021 Urology Office/Clinic Note Chief Complaint New Patient HPI Staff New Patient Barbara is a 51 y/o female here for Stress incontinence. Dysuria: _denies Incomplete bladder emptying: _denies Hematuria: _denies Frequency: _denies Urgency: _denies (only if she holds it way too long) Nocturia: _0-1x Stream: _steady, no hesitancy, no straining, no intermittency Leaking: _yes Post void dripping: _yes when she stands up after voiding she drips more out Wearing pads/ Depends: _yes, panty liner Urge incontinence: _rare, only if she holds her urine way too long, otherwise is fine Stress incontinence: _yes, predominant complaint, happens with cough, laugh, sneeze, movement Incontinence without Sensory Awareness: _denies Abdominal pain: _denies Flank pain: _denies Sexual complaints: _denies. no pain with intercourse. no significant vaginal dryness. no frequent UTIs. no hx stones. had hysterectomy about 10 yrs ago. 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 still has her ovaries. no hot flashes. History of Present Illness staff HPI adjusted. Review of Systems PHQ Score Initial Depression Screen Score: 0 no fever, chills, malaise, myalgia. no rash/lesions. no chest pain, palpitations, or SOB. no abdominal pain, nausea, vomiting. no unilateral calf swelling, redness, pain Physical Exam Vitals & Measurements HR: 106(Peripheral) BP: 138/96 HT: 158 cm HT: 158.0 cm WT: 89 kg WT: 89.0 kg BMI: 35.65 General: nontoxic, NAD Mouth: moist mucosa Lungs: normal respiratory effort Cardio: regular rate, good distal perfusion Abdomen: nondistended, no suprapubic distention or tenderness, no CVA tenderness Neurologic: Grossly normal Skin: No rashes or suspicious lesions : no evidence vaginal atrophy. Grade 1 cystocele. no rectocele. stress incontinence unable to be reproduced with valsalva (pt just emptied bladder, PVR low). Assessment/Plan 1. Stress incontinence (N39.3: Stress incontinence (female) (male)) Pt c/o predominant stress incontinence. This was not demonstrated on physical exam so she will return in the next few weeks for repeat pelvic exam so we can reassess this. I went over the options for treatment with the patient. We discussed conservative treatment with pelvic floor exercises with or without a physical therapist. We also discussed vaginal inserts such as anti-incontinence pessaries and the Impressa tampon. Definitive treatment including urethral bulking agents and mid-urethral sling were discussed as these are options offered by my colleagues. Details of each procedure, success rates, recovery/downtime expectations, and risks were discussed at length. We also spoke briefly about traditional slings with autologous fascia. This is also a very successful procedure without the use of synthetic mesh. It does however require a significantly longer recovery period and has a slightly higher risk of voiding dysfunction. And pt understands that it is not offered by our physicians so she would need referred elsewhere. Based on the above discussion the patient is interested in Bulkamid. She was provided written pt education to review at home. She will do some research on her own and contact the office if/when she decides she would like to proceed. Specific risks of Bulkamid were discussed including: Postoperatively, transient symptoms such as dysuria, stranguria, hematuria, urinary tract infection, and acute retention may occur. Long-term side effects such as non-acute retention, abscess formation, fibrosis (tissue hardening), de lluvia urgency, and necrosis are possible, but rare. Results and experiences may vary and are unique to each patient. The efficacy of the procedure may diminish over time and no promise or guarantee is made about specific results or experiences. Ordered: E&M of New Patient Moderate 45-59 Min 08152 Follow-up With When Contact Information pt will call once she decides how she would like to proceed Additional Instructions: Patient Education Overactive Bladder, Adult Urinary Incontinence Problem List/Past Medical History Ongoing No qualifying data Historical No qualifying data Procedure/Surgical History Hysterectomy. Medications diclofenac sodium 75 mg Oral EC Tab, Oral, BID loratadine-pseudoeph edrine 10 mg-240 mg ER Tab, Oral, Daily phentermine 37.5 mg Tab, 37.5 mg= 1 tab(s), Oral, Daily Allergies No Known Allergies No Known Medication Allergies Social History Tobacco Never (less than 100 in lifetime) Tobacco Use:. Never Smokeless Tobacco Use:., 09/03/2021 Family History Alcoholism: Father. Immunizations Vaccine Date Status Comments SARS-CoV-2 mRNA (tozinameran 5y-11y) vac - Not Given Postpone due to refusal [facility] Comment on above: Result Comment: Elec tronically Signed By: MICHAEL NUGENT PA-C\.br\Date and Time Signed: 09/04/21 09:42 EDT Ambulatory Visit Summaryon 0 09-03-2021 Ambulatory Visit Summary BARBARA BACA :1970 Visit Date:09/03/2021 Ambulatory Visit Instructions Your Diagnosis Stress incontinence Tests Performed Urnls Dip Stick Auto w/o Microscopy POC [id number] Your Care Team Attending Physician - MICHAEL NUGENT PA-C Primary Care Physician - Monika Matthews MD Referring Physician - Monika Matthews MD This Is Your Medications List diclofenac (diclofenac sodium 75 mg Oral EC Tab) loratadine-pseudoeph edrine (loratadine-pseudoep hedrine 10 mg-240 mg ER Tab) phentermine (phentermine 37.5 mg Tab) [Image Removed: STOP]Stop taking these medications itraconazole (Sporanox 100 mg Cap) Procedures Performed Hysterectomy. Discharge Vitals Heart Rate (Peripheral) 106 Blood Pressure 138/96 Height 158 cm Height 158.0 cm Weight 89 kg Weight 89.0 kg BMI 35.65 Medications What How Much When Instructions Unchanged diclofenac (diclofenac sodium 75 mg Oral EC Tab) By Mouth 2 times a day Unchanged loratadine-pseudoeph edrine (loratadine-pseudoep hedrine 10 mg-240 mg ER Tab) By Mouth Every day Unchanged phentermine (phentermine 37.5 mg Tab) 1 Tablets By Mouth Every day What When Comments Stop Taking itraconazole (Sporanox 100 mg Cap) Every day Test Results Urnls Dip Stick Auto w/o Microscopy POC 38161 (09/03/2021) Bilirubin Urine Dipstick - Negative Blood Urine Dipstick - Trace-intact Glucose Urine Dipstick - Negative Ketones Urine Dipstick - Negative Leukocytes Urine Dipstick - Negative Nitrite Urine Dipstick - Negative Protein Urine Dipstick - Negative Specific [place] Urine Dipstick - 1.020 Urine Appearance Urine Dipstick - Clear Urine Color Urine Dipstick - Yellow Urobilinogen Urine Dipstick - Normal 0.2-1 EU/dl pH Urine Dipstick - 5 Medications and Immunizations Administered Not Given SARS-CoV-2 mRNA (tozinameran 5y-11y) vac, Postpone due to refusal Allergies No Known Allergies No Known Medication Allergies Normal [facility] CBC AUTO DIFFon 08-02-2021 BASO # 0.0 103/ul Normal 0.0-0.1 [facility] Comment on above: Performed By: #### C BC #### [facility] [address] [address] [address] Dioni Mayorga Basophils/100 WBC (Bld) 0.4 % Normal 0.2-2.0 [facility] Comment on above: Performed By: #### C BC #### [facility] [address] [place] [address] Dr. Dioni Mayorga EO # 0.1 103/ul Normal 0.0-0.7 [facility] Comment on above: Performed By: #### C BC #### [facility] [address] [place] [address] Dr. Dioni Mayorga Eosinophils/100 WBC (Bld) 1.0 % Normal 0.9-7.0 [facility] Comment on above: Performed By: #### C BC #### [facility] [address] [address] [address] Dioni Mayorga Erythrocyte distribution width (RBC) [Ratio] 13.4 % Normal 11.0-15.0 [facility] Comment on above: Performed By: #### C BC #### [facility] [address] [place] [address] Dr. Dioni Mayorga Hematocrit (Bld) [Volume fraction] 45.2 % Normal 36.0-48.0 [facility] Comment on above: Performed By: #### C BC #### [facility] [address] [place] [address] Dr. Dioni Mayorga Hemoglobin (Bld) [Mass/Vol] 14.5 g/dL Normal 12.0-16.0 [facility] Comment on above: Performed By: #### C BC #### [facility] [address] [place] [address] Dr. Dioni Mayorga IG # 0.02 10e3/ul Normal 0.00-0.03 [facility] Comment on above: Performed By: #### C BC #### [facility] [address] [place] [address] Dr. Dioni Mayorga IG % 0.3 % Normal 0.0-0.5 [facility] Comment on above: Performed By: #### C BC #### [facility] [address] [place] [address] Dr. Dioni Mayorga LYMPH # 2.7 103/ul Normal 1.2-3.8 [facility] Comment on above: Performed By: #### C BC #### [facility] [address] [place] [address] Dr. Dioni Mayorga Lymphocytes/100 WBC (Bld) 38.7 % Normal 20.5-60.0 [facility] [facility] Comment on above: Performed By: #### C BC #### [facility] [address] [place] [address] Dr. Dioni Mayorga MANUAL DIFF REQ NO Normal [facility] Comment on above: Performed By: #### C BC #### [facility] [address] [place] [address] Dr. Dioni Mayorga MCH (RBC) [Entitic mass] 28.4 pg Normal 26.7-34.0 [facility] Comment on above: Performed By: #### C BC #### [facility] [address] [place] [address] Dr. Dioni Mayorga MCHC (RBC) [Mass/Vol] 32.1 g/dL Normal 29.9-35.[address] [facility] Comment on above: Performed By: #### C BC #### [facility] [address] [place] [address] Dr. Dioni Mayorga MCV (RBC) [Entitic vol] 88.5 fL Normal 81.0-99.0 [facility] Comment on above: Performed By: #### C BC #### [facility] [address] [place] [address] Dr. Dioni Mayorga MONO # 0.4 103/ul Normal 0.3-0.[address] [facility] Comment on above: Performed By: #### C BC #### [facility] [address] [place] [address] Dr. Dioni Mayorga Monocytes/100 WBC (Bld) 6.2 % Normal 1.7-12.[address] [facility] Comment on above: Performed By: #### C BC #### [facility] [address] [place] [address] Dr. Dioni Mayorga NEUT # 3.7 103/ul Normal 1.4-6.[address] [facility] Comment on above: Performed By: #### C BC #### [facility] [address] [place] [address] Dr. Dioni Mayorga Neutrophils/100 WBC (Bld) 53.4 % Normal 43.0-75.[address] [facility] Comment on above: Performed By: #### C BC #### [facility] [address] [place] [address] Dr. Dioni Mayorga Platelet mean volume (Bld) [Entitic vol] 10.4 fL Normal 9.5-13.[address] [facility] Comment on above: Performed By: #### C BC #### [facility] [address] [place] [address] Dr. Dioni Mayorga PLT 340 103/ul Normal 150-[address] [facility] Comment on above: Performed By: #### C BC #### [facility] [address] [place] [address] Dr. Dioni Mayorga RBC 5.11 106/ul Normal 4.20-5.[address] [facility] Comment on above: Performed By: #### C BC #### [facility] [address] [place] [address] Dr. Dioni Mayorga WBC 6.9 103/ul Normal 4.0-11.[address] [facility] Comment on above: Performed By: #### C BC #### [facility] [address] [place] [address] Dr. Dioni Mayorga FREE T3on 08-02-2021 FREE T3 1.49 pg/mlL Critically low 2.18-3.98 [facility] Comment on above: Performed By: #### F T3, LIPID, CMP, T7, TSH #### [facility] [address] [address] [address] Dioni Mayorga FREE THYROXINE INDEX T7on FTI 2.77 Normal 1.30-4.50 [facility] Comment on above: Performed By: #### F T3, LIPID, CMP, T7, TSH #### [facility] [address] [address] [address] Dioni Mayorga T3U 36.0 % Normal 30.0-39.0 [facility] Comment on above: Performed By: #### F T3, LIPID, CMP, T7, TSH #### [facility] [address] [address] [address] Dioni Mayorga T4 [Mass/Vol] 7.70 ug/dL Normal 4.80-13.90 [facility] Comment on above: Performed By: #### F T3, LIPID, CMP, T7, TSH #### [facility] [address] [address] [address] Dioni Mayorga GLYCOHEMOGLOBIN A1Con 2021 ADA RECOMMENDATION SEE BELOW Normal [facility] Comment on above: Result Comment: ADA RECOMMENDED LIMIT 4.0 - 6.0 ADA THERAPEUTIC TARGET < 7.0 ACTION SUGGESTED > 7.0 Performed By: #### A 1C #### [facility] [address] [address] [address] Dioni Mayorga Glucose [Mass/Vol] 111 mg/dL Normal [facility] Comment on above: Performed By: #### A 1C #### [facility] [address] [address] [address] Dioni Mayorga HbA1c (Bld) [Mass fraction] 5.5 % Normal 4.5-6.2 [facility] Comment on above: Performed By: #### A 1C #### [facility] [address] [address] [address] Dioni Mayorga LIPID PROFILEon 08-02-2021 CHOL-HDL RATIO NORM SEE BELOW Normal [facility] Comment on above: Result Comment: 3.3 - 4.4 LOW RISK 4.4 - 7.1 AVERAGE RISK 7.1 - 11.0 MODERATE RISK >11.0 HIGH RISK Performed By: #### F T3, LIPID, CMP, T7, TSH #### [facility] [address] [address] [address] Dioni Mayorga Cholesterol [Mass/Vol] 211 mg/dL Critically high <=200 [facility] Comment on above: Performed By: #### F T3, LIPID, CMP, T7, TSH #### [facility] [address] [address] [address] Dioni Mayorga Cholesterol in HDL [Mass/Vol] 48 mg/dL Normal 40-60 [facility] Comment on above: Performed By: #### F T3, LIPID, CMP, T7, TSH #### [facility] [address] [address] [address] Dioni Mayorga Cholesterol in LDL [Mass/Vol] 148.6 mg/dL Normal [facility] Comment on above: Performed By: #### F T3, LIPID, CMP, T7, TSH #### [facility] [address] [address] [address] Dioni Mayorga Cholesterol.total/Ch olesterol in HDL [Mass ratio] 4.4 {ratio} Normal [facility] Comment on above: Performed By: #### F T3, LIPID, CMP, T7, TSH #### [facility] [address] [address] [address] Dioni Mayorga HDL NORMAL > or = 60 mg/dl - LOW CARDIOVASCULAR RISK <40 mg/dl - HIGH CARDIOVASCULAR RISK Normal [facility] Comment on above: Performed By: #### F T3, LIPID, CMP, T7, TSH #### [facility] [address] [place] [address] Dr. Dioni Mayorga LDL CALC NORMAL SEE BELOW Normal [facility] Comment on above: Result Comment: <100 mg/dl OPTIMAL 100 - 129 mg/dl NEAR OR ABOVE OPTIMAL 130 - 159 mg/dl BORDERLINE HIGH 160 - 189 mg/dl HIGH >190 mg/dl VERY HIGH Performed By: #### F T3, LIPID, CMP, T7, TSH #### [facility] [address] [address] [address] Dioni Mayorga Triglyceride [Mass/Vol] 72 mg/dL Normal <=150 [facility] Comment on above: Performed By: #### F T3, LIPID, CMP, T7, TSH #### [facility] [address] [address] [address] Dioni Mayorga VLDL CALC 14.4 mg/dL Normal [facility] Comment on above: Performed By: #### F T3, LIPID, CMP, T7, TSH #### [facility] [address] [address] [address] Dioni Mayorga PROF 14(COMP METB)on 022 Albumin [Mass/Vol] 3.5 g/dL Normal 3.4-5.0 [facility] Comment on above: Performed By: #### F T3, LIPID, CMP, T7, TSH #### [facility] [address] [address] [address] Dioni Mayorga Albumin/Globulin [Mass ratio] 1.0 {ratio} Normal [facility] Comment on above: Performed By: #### F T3, LIPID, CMP, T7, TSH #### [facility] [address] [place] [address] Dr. Dioni Mayorga ALP [Catalytic activity/Vol] 62 U/L Normal 46-116 [facility] Comment on above: Performed By: #### F T3, LIPID, CMP, T7, TSH #### [facility] [address] [address] [address] Dioni Mayorga ALT [Catalytic activity/Vol] 20 U/L Normal 14-59 [facility] Comment on above: Performed By: #### F T3, LIPID, CMP, T7, TSH #### [facility] [address] [address] [address] Dioni Mayorga Anion gap [Moles/Vol] 14.0 mmol/L Normal [facility] Comment on above: Performed By: #### F T3, LIPID, CMP, T7, TSH #### [facility] [address] [address] [address] Dioni Mayorga AST [Catalytic activity/Vol] 12 U/L Critically low 15-37 [facility] Comment on above: Performed By: #### F T3, LIPID, CMP, T7, TSH #### [facility] [address] [address] [address] Dioni Mayorga Bilirubin [Mass/Vol] 0.4 mg/dL Normal 0.2-1.[address] [facility] Comment on above: Performed By: #### F T3, LIPID, CMP, T7, TSH #### [facility] [address] [address] [address] Dioni Mayorga Calcium [Mass/Vol] 8.7 mg/dL Normal 8.5-10.1 [facility] Comment on above: Performed By: #### F T3, LIPID, CMP, T7, TSH #### [facility] [address] [place] [address] Dr. Dioni Mayorga Chloride [Moles/Vol] 105 mmol/L Normal 98-[address] [facility] Comment on above: Performed By: #### F T3, LIPID, CMP, T7, TSH #### [facility] [address] [address] [address] Dioni Mayorga CO2 [Moles/Vol] 26.4 mmol/L Normal 21.0-32.0 [facility] Comment on above: Performed By: #### F T3, LIPID, CMP, T7, TSH #### [facility] [address] [address] [address] Dioni Mayorga Creatinine [Mass/Vol] 0.83 mg/dL Normal 0.55-1.02 [facility] Comment on above: Performed By: #### F T3, LIPID, CMP, T7, TSH #### [facility] [address] [place] [address] Dr. Dioni Mayorga EGFR-AF TURKMEN >60 Normal >=60 [facility] Comment on above: Performed By: #### F T3, LIPID, CMP, T7, TSH #### [facility] [address] [place] [address] Dr. Dioni Mayorga EGFR-NON AF TURKMEN >60 Normal >=60 [facility] Comment on above: Performed By: #### F T3, LIPID, CMP, T7, TSH #### [facility] [address] [address] [address] Dioni Mayorga Globulin (S) [Mass/Vol] 3.5 g/dL Normal [facility] Comment on above: Performed By: #### F T3, LIPID, CMP, T7, TSH #### [facility] [address] [address] [address] Dioni Mayorga Glucose [Mass/Vol] 78 mg/dL Normal 74-[address] [facility] Comment on above: Performed By: #### F T3, LIPID, CMP, T7, TSH #### [facility] [address] [place] [address] Dr. Dioni Mayorga Potassium [Moles/Vol] 4.4 mmol/L Normal 3.5-5.1 [facility] Comment on above: Performed By: #### F T3, LIPID, CMP, T7, TSH #### [facility] [address] [place] [address] Dr. Dioni Mayorga Protein [Mass/Vol] 7.0 g/dL Normal 6.4-8.[address] [facility] Comment on above: Performed By: #### F T3, LIPID, CMP, T7, TSH #### [facility] [address] [place] [address] Dr. Dioni Mayorga Sodium [Moles/Vol] 141 mmol/L Normal 136-[address] [facility] Comment on above: Performed By: #### F T3, LIPID, CMP, T7, TSH #### [facility] [address] [place] [address] Dr. Dioni Mayorga Urea nitrogen [Mass/Vol] 16.0 mg/dL Normal 7.0-18.[address] [facility] Comment on above: Performed By: #### F T3, LIPID, CMP, T7, TSH #### [facility] [address] [place] [address] Dr. Dioni Mayorga Urea nitrogen/Creatinine [Mass ratio] 19.3 mg/mg Normal [facility] Comment on above: Performed By: #### F T3, LIPID, CMP, T7, TSH #### [facility] [address] [place], [place] [address] Dr. Dioni Mayorga TSHon 08-02-2021 TSH 1.339 uIU/mL Normal 0.358-3.740 [facility] Comment on above: Performed By: #### F T3, LIPID, CMP, T7, TSH #### [facility] [address] [place], [place] [address] Dr. Dioni Mayorga Vital Signs Date Time Vital Sign Value Performing Clinician Faci lity 09-03-2021 08:51-0400 Blood Pressure Location MICHAEL NUGENT [facility] 09-03-2021 08:51-0400 Diastolic blood pressure 96 mm[Hg] MICHAEL NUGENT [facility] 09-03-2021 08:51-0400 Heart rate 106 /min MICHAEL NUGENT [facility] 09-03-2021 08:51-0400 Systolic blood pressure 138 mm[Hg] MICHAEL NUGENT [facility] Encounters Encounter Date Encounter Type Care Provider Facility Start: 01-11-2023 End: 01-12-2023 ambulatory Harish Cannon MD Facility:[facility] Start: 12-07-2022 End: 12-08-2022 ambulatory Harish Cannon MD Facility:[facility] Start: 11-23-2022 End: 11-24-2022 ambulatory Harish Cannon MD Facility:[facility] Start: 11-02-2022 End: 11-03-2022 ambulatory Harish Cannon MD Facility:[facility] Start: 03-02-2022 End: 03-02-2022 ambulatory SALVADOR GROSS Facility:[facility] Start: 12-15-2021 End: 12-15-2021 ambulatory SALVADOR GROSS Facility:[facility] Start: 12-09-2021 End: 12-09-2021 ambulatory SALVADOR GROSS Facility:[facility] Start: 09-17-2021 End: 09-18-[address] MONIKA MATTHEWS Facility:[facility] Start: 09-03-[address] MONIKA MATTHEWS Facility :[facility] Start: 09-03-2021 End: 09-03-2021 Patient encounter procedure MICHAEL NUGENT [facility] Start: 08-05-2021 Encounter for genera l adult medical examination without abnormal findings DR MONIKA MATTHEWS [facility] Start: 08-02-2021 End: 08-03-[address] MONIKA MATTHEWS Facility:[facility] Start: 08-02-2021 End: 08-03-2021 Encounter for general adult medical examination without abnormal findings DR MONIKA MATTHEWS Facility:[facility] Procedures Date Procedure Procedure Detail Performing Clinician Hysterectomy MICHAEL NUGENT Immunizations Immunization Date Immunization Notes Care Provider Fa cility NEGATED: Highlighted row has not occurred!09-03-2021 SARS-CoV-2 mRNA (tozinameran 5y-11y) vaccine MICHAEL NUGENT [facility] Payers Date Payer Category Payer Unknown [id number] 2022 Unknown 2019 Unknown [id number] 1972 Unknown [id number] 2.16.84 [id number] 1972 Unknown [id number] 2.16.84 [id number] 1972 Unknown [id number] 2.16.84 [id number] 1972 Unknown [id number] 2.16.84 [id number] 1972 Unknown [id number] 2.16.84 [id number] 1972 Unknown [id number] 2.16.84 [id number] 1972 Unknown [id number] 2.16. [id number] 1972 Unknown [id number] 2.16. [id number] 1972 Unknown [id number] 2.16. [id number] 1972 Unknown [id number] 2.16. [id number] Social History Date Type Detail Facility Start: 09-03-2021 Tobacco smoking status Never s moked tobacco (finding) [facility] Tobacco smoking status Never [facility] Sex Assigned At Female [facility] Functional Status Date Assessment Result Facility 09-03-2021 Functional Status N/A [facility] Hospital Discharge instructions 09-03-2021 Note Date & Type Note Facility 09-03-2021 Hospital Discharg e instructions Patient Education 09/03/2021 11:37:17 Urinary Incontinence Urinary Incontinence Urinary incontinence refers to a condition in which a person is unable to control where and when to pass urine. A person with this condition will urinate when he or she does not mean to (involuntarily). What are the causes? This condition may be caused by: Medicines. Infections. Constipation. Overactive bladder muscles. Weak bladder muscles. Weak pelvic floor muscles. These muscles provide support for the bladder, intestine, and, in women, the uterus. Enlarged prostate in men. The prostate is a gland near the bladder. When it gets too big, it can pinch the urethra. With the urethra blocked, the bladder can weaken and lose the ability to empty properly. Surgery. Emotional factors, such as anxiety, stress, or post-traumatic stress disorder (PTSD). Pelvic organ prolapse. This happens in women when organs shift out of place and into the vagina. This shift can prevent the bladder and urethra from working properly. What increases the risk? The following factors may make you more likely to develop this condition: Older age. Obesity and physical inactivity. and childbirth. Menopause. Diseases that affect the nerves or spinal cord (neurological diseases). Long-term (chronic) coughing. This can increase pressure on the bladder and pelvic floor muscles. What are the signs or symptoms? Symptoms may vary depending on the type of urinary incontinence you have. They include: A sudden urge to urinate, but passing urine involuntarily before you can get to a bathroom (urge incontinence). Suddenly passing urine with any activity that forces urine to pass, such as coughing, laughing, exercise, or sneezing (stress incontinence). Needing to urinate often, but urinating only a small amount, or constantly dribbling urine (overflow incontinence). Urinating because you cannot get to the bathroom in time due to a physical disability, such as arthritis or injury, or communication and thinking problems, such as Alzheimer disease (functional incontinence). How is this diagnosed? This condition may be diagnosed based on: Your medical history. A physical exam. Tests, such as: ?Urine tests. ?X-rays of your kidney and bladder. ?Ultrasound. ?CT scan. ?Cystoscopy. In this procedure, a health care provider inserts a tube with a light and camera (cystoscope) through the urethra and into the bladder in order to check for problems. ?Urodynamic testing. These tests assess how well the bladder, urethra, and sphincter can store and release urine. There are different types of urodynamic tests, and they vary depending on what the test is measuring. To help diagnose your condition, your health care provider may recommend that you keep a log of when you urinate and how much you urinate. How is this treated? Treatment for this condition depends on the type of incontinence that you have and its cause. Treatment may include: Lifestyle changes, such as: ?Quitting smoking. ?Maintaining a healthy weight. ?Staying active. Try to get 150 minutes of moderate-intensity exercise every week. Ask your health care provider which activities are safe for you. ?Eating a healthy diet. ?Avoid high-fat foods, like fried foods. ?Avoid refined carbohydrates like white bread and white rice. ?Limit how much alcohol and caffeine you drink. ?Increase your fiber intake. Foods such as fresh fruits, vegetables, beans, and whole grains are healthy sources of fiber. Pelvic floor muscle exercises. Bladder training, such as lengthening the amount of time between bathroom breaks, or using the bathroom at regular intervals. Using techniques to suppress bladder urges. This can include distraction techniques or controlled breathing exercises. Medicines to relax the bladder muscles and prevent bladder spasms. Medicines to help slow or prevent the growth of a man's prostate. Botox injections. These can help relax the bladder muscles. Using pulses of electricity to help change bladder reflexes (electrical nerve stimulation). For women, using a medical billing service to prevent urine leaks. This is a small, tampon-like, disposable device that is inserted into the urethra. Injecting collagen or carbon beads (bulking agents) into the urinary sphincter. These can help thicken tissue and close the bladder opening. Surgery. Follow these instructions at home: Lifestyle Limit alcohol and caffeine. These can fill your bladder quickly and irritate it. Keep yourself clean to help prevent odors and skin damage. Ask your doctor about special skin creams and cleansers that can protect the skin from urine. Consider wearing pads or adult diapers. Make sure to change them regularly, and always change them right after experiencing incontinence. General instructions Take [id number] and prescription medicines only as told by your health care provider. Use the bathroom about every 3 4 hours, even if you do not feel the need to urinate. Try to empty your bladder completely every time. After urinating, wait a minute. Then try to urinate again. Make sure you are in a relaxed position while urinating. If your incontinence is caused by nerve problems, keep a log of the medicines you take and the times you go to the bathroom. Keep all follow-up visits as told by your health care provider. This is important. Contact a health care provider if: You have pain that gets worse. Your incontinence gets worse. Get help right away if: You have a fever or chills. You are unable to urinate. You have redness in your groin area or down your legs. Summary Urinary incontinence refers to a condition in which a person is unable to control where and when to pass urine. This condition may be caused by medicines, infection, weak bladder muscles, weak pelvic floor muscles, enlargement of the prostate (in men), or surgery. The following factors increase your risk for developing this condition: older age, obesity, and childbirth, menopause, neurological diseases, and chronic coughing. There are several types of urinary incontinence. They include urge incontinence, stress incontinence, overflow incontinence, and functional incontinence. This condition is usually treated first with lifestyle and behavioral changes, such as quitting smoking, eating a healthier diet, and doing regular pelvic floor exercises. Other treatment options include medicines, bulking agents, medical devices, electrical nerve stimulation, or surgery. This information is not intended to replace advice given to you by your health care provider. Make sure you discuss any questions you have with your health care provider. Document Released: 03/11/2005 Document Revised: 02/11/2018 Document Reviewed: 05/13/2017 [employer] Patient Education [employer]. Follow Up Care 08/06/2021 08:10:07 With:pt will call once she decides how she would like to proceed Address:Unknown When: Unknown [facility] Evaluation + Plan note Note Date & Type Note Facility Evaluation + Plan note Future Appointments Appointment Date:09/17/2021 08:30:00 AM Scheduled Provider: Location:[facility] Appointment Type:URO Nurse Visit [facility] Hospital course Narrative Note Date & Type Note Facility Hospital course Narrative No data available for this section [facility] Progress note Note Date & Type Note Facility Progress note No data available for this section [facility] Summary Purpose Family History No Family History Records FoundNo Family History Records FoundNo Family History Records Found Advance Directives No Advanced Directives Records FoundNo Advanced Directives Records FoundNo Advanced Directives Records Found Additional Source Comments Care Team (unrecognized sect ion and content) Personnel Name: Monika Matthews MD Address: [address] [place] [address] [place] [address]- INFORMATION SOURCE (unrecogn ized section and content) DATE CREATED AUTHOR 09/18/2021 [facility] DATE CREATED AUTHOR AUTHOR'S ORGANIZ ATION 03/02/2022 [facility] DATE CREATED AUTHOR AUTHOR'S ORGANIZ ATION 01/15/2023 [facility] FOR RECORDS PERTAINING TO PATIENTS WHO ARE OR HAVE BEEN ENROLLED IN A CHEMICAL DEPENDENCY/SUBSTANCEABUSE PROGRAM, SOME INFORMATION MAY BE OMITTED. This clinical summary was aggregated from multiple sources. Caution should be exercised in using it in the provision of clinical care. This summary normalizes information from multiple sources, and as a consequence, information in this document may materially change the coding, format and clinical context of patient data. In addition, data may be omitted in some cases. CLINICAL DECISIONS SHOULD BE BASED ON THE PRIMARY CLINICAL RECORDS. [facility] [employer] [facility]. provides no warranty or guarantee of the accuracy or completeness of information in this document.
== END 2023-02-04 07:37 | disposition home or self-care (01) ==
LOC: PM 07:43
PROVIDERS: PCP Family Medicine; Visit Provider Nurse Practitioner
DX: M46.1 Sacroiliitis, not elsewhere classified (principal); M47.816 Spondylosis without myelopathy or radiculopathy, lumbar region; M62.838 Other muscle spasm; G57.02 Lesion of sciatic nerve, left lower limb
CPT/HCPCS: 72202; G0463

== ENCOUNTER 2023-02-04 16:06 | Outpatient (OUT) | payer BC, SELFPAY ==
--- NOTE | 2023-02-04 | XR_ITS ---
The [address] [address] Patient Name: JONATHAN BACA MRN: [id number] date: 1970 Sex: F Assigned Patient Location: RAD Current Patient Location: RAD Accession/Order Number: [id number] Exam Date: 02/04/2023 16:15 Report Date: 02/05/2023 10:23 At the request of: PAPA SMALLS Procedure: XR sacroiliac joint DUSTIN EXAM: XR sacroiliac joint DUSTIN HISTORY: Sacroilitis. COMPARISON: None TECHNIQUE: 3 views of the sacroiliac joints were obtained. FINDINGS: Sacroiliac joints appear grossly unremarkable. No obvious widening or narrowing of the sacroiliac joints. No obvious focal lytic or sclerotic lesion. No definite acute fracture or dislocation. Soft tissues are grossly within normal limits. XR/XR sacroiliac joint DUSTIN IMPRESSION: Sacroiliac joints study is grossly unremarkable. Follow-up as needed. Electronically authenticated by: CHAVA STERLING Date: 02/05/2023 10:23
--- OUTSIDE RECORDS SUMMARY | 2023-02-04 16:09 | XMS_ITS | CCD ---
Author Name Unknown Address [email or web address] [place] [address] Organization [facility] Care Team Providers Care Clinical Tech Name Role Phone Monika Matthews Primary Care [...] Value Interpretation Reference Range [facility]15 SARS-CoV-2 (COVID-19) RNA YAMILET+probe Ql (Unsp spec) Not detected Normal NOT DETECTED [facility] Comment on above: Result Comment: When [...] for this test is supported by the [place] of Health and Human Service's declaration that [...] be used). Performed By: #### C VDTB ####[facility] [id number] [address]Dr. Dioni Mayorga INFLUENZA A AND B AGon 03-02 [facility] SEE BELOW Normal [facility] Comment on above: Result Comment: Nega tive for Flu A protein angiten. Infection due to Flu A cannot be ruled out. Flu A angiten in the sample may be below the detection limit of the test. Performed By: #### I NFLUAB #### [facility] [address] [place] [address] Dr. Dioni Mayorga [facility] SEE BELOW Normal [facility] Comment on above: Result Comment: Nega tive for Flu B protein antigen. Infection due to Flu B cannot be ruled out. Flu B antigen in the sample may be below the detection limit of the test. Performed By: #### I NFLUAB #### [facility] [address] [address] [address] Dioni Mayorga INFLUENZA A AG Negative Normal NEGATIVE SEE COMMENT [facility] Comment on above: Performed By: #### I NFLUAB #### [facility] [address] [address] [address] Dioni Mayorga INFLUENZA B AG Negative Normal NEGATIVE SEE COMMENT [facility] Comment on above: Performed By: #### I NFLUAB #### [facility] [address] [place] [address] Dr. Dioni Mayorga ASYMPTOMATIC COVID-19 ANTIGE Non 12-15-2021 EUA Statement SEE BELOW Normal [facility] Comment on above: Result Comment: This test [...] sooner. Performed By: #### C VDAGA #### [facility] [address] [place] [address] Dr. Dioni Mayorga SARS-CoV-2 (COVID-19) RNA YAMILET+probe Ql (Unsp spec) Negative Normal NEGATIVE [facility] Comment on above: Result Comment: Nega tive results are presumptive. They do not preclude infection and should not be used as the sole basis for treatment decisions. Additional confirmatory testing by a molecular method should be considered. Performed By: #### C VDAGA #### [facility] [address] [place] [address] Dr. Dioni Mayorga Covid-19 PCR (CVDTB)on 11-16 SARS-CoV-2 (COVID-19) RNA YAMILET+probe Ql (Unsp spec) Detected Critically abnormal NOT DETECTED [facility] Comment on above: Result Comment: This test is not yet approved or cleared by the [place] FDA. When there are no FDA-approved or cleared tests available, and other criteria are met, FDA can make tests available under an emergency access mechanism called an Emergency Use Authorization (EUA). The EUA for this test is supported by the [place] of Health and Human Service's declaration that [...] be used). Performed By: #### C VDTB ####[facility] [id number] [place], [place] [address]Td. Dioni Mayorga MG MAMM SCREEN 3D DUSTIN CADon 09-17-2021 MG MAMM SCREEN 3D DUSTIN CAD Patient: BARBARA BACA Exam Date: 09/17/2021 : 1970 Gender:F Ordering : DR MONIKA MATTHEWS . Admission #: [id number] Family : Order #: [id number] CLICK HERE TO VIEW EXAM RADIOLOGY REPORT PROCEDURE: MAMMOGRAM SCREENING 3D BILATERAL CAD COMPARISON: MG MAMM SCREEN 3D DUSTIN CAD, 05/08/2020. MAMMO POST BIOPSY RIGHT, 01/04/2018. INDICATIONS: Screening mammography Calculator Name NCI Breast Cancer Risk Assessment Tool 5 Year Breast Cancer Risk 1.00% Lifetime Breast Cancer Risk 9.60% Personal Breast Cancer No Personal Ovarian Cancer No Treatments None Family Cancers None LOCATION: [facility] BREAST COMPOSITION: Scattered areas fibroglandular density. [...] Rodarte M.D. on 09/17/2021 at 13:13 Normal [facility] Formson 09-04-2021 Forms [id number] #1.00CD:127 Normal [facility] Patient Educationon 09-05-19 22 Patient Education Obstetrics [...] Take ove (more content not included)... Normal [facility] Physician Referralon 022 Physician Referral [id number]#1.00CD:127 Normal [facility] Urology Office/Clinic Noteon 09-04-2021 Urology Office/Clinic Note [...] had hysterectomy about 10 yrs ago. 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 [...] E&M of New Patient Moderate 45-59 Min 08749 Follow-up With When Contact Information pt will [...] - Not Given Postpone due to refusal [facility] Comment on above: Result Comment: Elec tronically Signed By: MICHAEL NUGENT PA-C\.br\Date and Time Signed: 09/04/21 09:42 EDT Ambulatory Visit Summaryon 0 09-03-2021 Ambulatory Visit Summary BARBARA BACA :1970 Visit Date:09/03/2021 Ambulatory Visit Instructions Your Diagnosis Stress incontinence Tests Performed Urnls Dip Stick Auto w/o Microscopy POC 56467 Your Care Team Attending Physician - MICHAEL [...] Urnls Dip Stick Auto w/o Microscopy POC 03066 (09/03/2021) Bilirubin Urine Dipstick - Negative Blood Urine Dipstick - Trace-intact Glucose Urine Dipstick - Negative Ketones Urine Dipstick - Negative Leukocytes Urine Dipstick - Negative Nitrite Urine Dipstick - Negative Protein Urine Dipstick - Negative Specific [place] Urine Dipstick - 1.020 Urine Appearance Urine Dipstick - Clear Urine Color Urine Dipstick - Yellow Urobilinogen Urine Dipstick - Normal 0.2-1 EU/dl pH Urine Dipstick - 5 Medications and Immunizations Administered Not Given SARS-CoV-2 mRNA (tozinameran 5y-11y) vac, Postpone due to refusal Allergies No Known Allergies No Known Medication Allergies Normal [facility] CBC AUTO DIFFon 08-02-2021 BASO # 0.0 103/ul Normal 0.0-0.1 [facility] Comment on above: Performed By: #### C BC #### [facility] [address] [address] [address] Dioni Mayorga Basophils/100 WBC (Bld) 0.4 % Normal 0.2-2.0 [facility] Comment on above: Performed By: #### C BC #### [facility] [address] [place] [address] Dr. Dioni Mayorga EO # 0.1 103/ul Normal 0.0-0.7 [facility] Comment on above: Performed By: #### C BC #### [facility] [address] [place] [address] Dr. Dioni Mayorga Eosinophils/100 WBC (Bld) 1.0 % Normal 0.9-7.0 [facility] Comment on above: Performed By: #### C BC #### [facility] [address] [address] [address] Dioni Mayorga Erythrocyte distribution width (RBC) [Ratio] 13.4 % Normal 11.0-15.0 [facility] Comment on above: Performed By: #### C BC #### [facility] [address] [place] [address] Dr. Dioni Mayorga Hematocrit (Bld) [Volume fraction] 45.2 % Normal 36.0-48.0 [facility] Comment on above: Performed By: #### C BC #### [facility] [address] [place] [address] Dr. Dioni Mayorga Hemoglobin (Bld) [Mass/Vol] 14.5 g/dL Normal 12.0-16.0 [facility] Comment on above: Performed By: #### C BC #### [facility] [address] [place] [address] Dr. Dioni Mayorga IG # 0.02 10e3/ul Normal 0.00-0.03 [facility] Comment on above: Performed By: #### C BC #### [facility] [address] [place] [address] Dr. Dioni Mayorga IG % 0.3 % Normal 0.0-0.5 [facility] Comment on above: Performed By: #### C BC #### [facility] [address] [place] [address] Dr. Dioni Mayorga LYMPH # 2.7 103/ul Normal 1.2-3.8 [facility] Comment on above: Performed By: #### C BC #### [facility] [address] [place] [address] Dr. Dioni Mayorga Lymphocytes/100 WBC (Bld) 38.7 % Normal 20.5-60.0 [facility] Comment on above: Performed By: #### C BC #### [facility] [address] [place] [address] Dr. Dioni Mayorga MANUAL DIFF REQ NO Normal [facility] Comment on above: Performed By: #### C BC #### [facility] [address] [place] [address] Dr. Dioni Mayorga MCH (RBC) [Entitic mass] 28.4 pg Normal 26.7-34.0 [facility] Comment on above: Performed By: #### C BC #### [facility] [address] [place] [address] Dr. Dioni Mayorga MCHC (RBC) [Mass/Vol] 32.1 g/dL Normal 29.9-35.2 [facility] Comment on above: Performed By: #### C BC #### [facility] [address] [place] [address] Dr. Dioni Mayorga MCV (RBC) [Entitic vol] 88.5 fL Normal 81.0-99.0 [facility] Comment on above: Performed By: #### C BC #### [facility] [address] [place] [address] Dr. Dioni Mayorga MONO # 0.4 103/ul Normal 0.3-0.8 [facility] Comment on above: Performed By: #### C BC #### [facility] [address] [place] [address] Dr. Dioni Mayorga Monocytes/100 WBC (Bld) 6.2 % Normal 1.7-12.0 [facility] Comment on above: Performed By: #### C BC #### [facility] [address] [place] [address] Dr. Dioni Mayorga NEUT # 3.7 103/ul Normal 1.4-6.5 [facility] Comment on above: Performed By: #### C BC #### [facility] [address] [place] [address] Dr. Dioni Mayorga Neutrophils/100 WBC (Bld) 53.4 % Normal 43.0-75.0 [facility] Comment on above: Performed By: #### C BC #### [facility] [address] [place] [address] Dr. Dioni Mayorga Platelet mean volume (Bld) [Entitic vol] 10.4 fL Normal 9.5-13.5 [facility] Comment on above: Performed By: #### C BC #### [facility] [address] [place] [address] Dr. Dioni Mayorga PLT 340 103/ul Normal 150-450 [facility] Comment on above: Performed By: #### C BC #### [facility] [address] [place] [address] Dr. Dioni Mayorga RBC 5.11 106/ul Normal 4.20-5.40 [facility] Comment on above: Performed By: #### C BC #### [facility] [address] [place] [address] Dr. Dioni Mayorga WBC 6.9 103/ul Normal 4.0-11.0 [facility] Comment on above: Performed By: #### C BC #### [facility] [address] [place] [address] Dr. Dioni Mayorga FREE T3on 08-02-2021 FREE T3 1.49 pg/mlL Critically low 2.18-3.98 [facility] Comment on above: Performed By: #### F T3, LIPID, CMP, T7, TSH #### [facility] [address] [address] [address] Dioni Mayorga FREE THYROXINE INDEX T7on FTI 2.77 Normal 1.30-4.50 [facility] Comment on above: Performed By: #### F T3, LIPID, CMP, T7, TSH #### [facility] [address] [address] [address] Dioni Mayorga T3U 36.0 % Normal 30.0-39.0 [facility] Comment on above: Performed By: #### F T3, LIPID, CMP, T7, TSH #### [facility] [address] [address] [address] Dioni Mayorga T4 [Mass/Vol] 7.70 ug/dL Normal 4.80-13.90 [facility] Comment on above: Performed By: #### F T3, LIPID, CMP, T7, TSH #### [facility] [address] [address] [address] Dioni Mayorga GLYCOHEMOGLOBIN A1Con 2021 ADA RECOMMENDATION SEE BELOW Normal [facility] Comment on above: Result Comment: ADA RECOMMENDED LIMIT 4.0 - 6.0 ADA THERAPEUTIC TARGET < 7.0 ACTION SUGGESTED > 7.0 Performed By: #### A 1C #### [facility] [address] [address] [address] Dioni Mayorga Glucose [Mass/Vol] 111 mg/dL Normal [facility] Comment on above: Performed By: #### A 1C #### [facility] [address] [address] [address] Dioni Mayorga HbA1c (Bld) [Mass fraction] 5.5 % Normal 4.5-6.2 [facility] Comment on above: Performed By: #### A 1C #### [facility] [address] [address] [address] Dioni Mayorga LIPID PROFILEon 08-02-2021 CHOL-HDL RATIO NORM SEE BELOW Normal [facility] Comment on above: Result Comment: 3.3 - 4.4 LOW RISK 4.4 - 7.1 AVERAGE RISK 7.1 - 11.0 MODERATE RISK >11.0 HIGH RISK Performed By: #### F T3, LIPID, CMP, T7, TSH #### [facility] [address] [address] [address] Dioni Mayorga Cholesterol [Mass/Vol] 211 mg/dL Critically high <=200 [facility] Comment on above: Performed By: #### F T3, LIPID, CMP, T7, TSH #### [facility] [address] [address] [address] Dioni Mayogra Cholesterol in HDL [Mass/Vol] 48 mg/dL Normal 40-60 [facility] Comment on above: Performed By: #### F T3, LIPID, CMP, T7, TSH #### [facility] [address] [address] [address] Dioni Mayorga Cholesterol in LDL [Mass/Vol] 148.6 mg/dL Normal [facility] Comment on above: Performed By: #### F T3, LIPID, CMP, T7, TSH #### [facility] [address] [address] [address] Dioni Mayorga Cholesterol.total/Ch olesterol in HDL [Mass ratio] 4.4 {ratio} Normal [facility] Comment on above: Performed By: #### F T3, LIPID, CMP, T7, TSH #### [facility] [address] [address] [address] Dioni Mayorga HDL NORMAL > or = 60 mg/dl - LOW CARDIOVASCULAR RISK <40 mg/dl - HIGH CARDIOVASCULAR RISK Normal [facility] Comment on above: Performed By: #### F T3, LIPID, CMP, T7, TSH #### [facility] [address] [place] [address] Dr. Dioni Mayorga LDL CALC NORMAL SEE BELOW Normal [facility] Comment on above: Result Comment: <100 mg/dl OPTIMAL 100 - 129 mg/dl NEAR OR ABOVE OPTIMAL 130 - 159 mg/dl BORDERLINE HIGH 160 - 189 mg/dl HIGH >190 mg/dl VERY HIGH Performed By: #### F T3, LIPID, CMP, T7, TSH #### [facility] [address] [address] [address] Dioni Maoyrga Triglyceride [Mass/Vol] 72 mg/dL Normal <=150 [facility] Comment on above: Performed By: #### F T3, LIPID, CMP, T7, TSH #### [facility] [address] [address] [address] Dioni Mayorga VLDL CALC 14.4 mg/dL Normal [facility] Comment on above: Performed By: #### F T3, LIPID, CMP, T7, TSH #### [facility] [address] [address] [address] Dioni Mayorga PROF 14(COMP METB)on 022 Albumin [Mass/Vol] 3.5 g/dL Normal 3.4-5.0 [facility] Comment on above: Performed By: #### F T3, LIPID, CMP, T7, TSH #### [facility] [address] [address] [address] Dioni Mayorga Albumin/Globulin [Mass ratio] 1.0 {ratio} Normal [facility] Comment on above: Performed By: #### F T3, LIPID, CMP, T7, TSH #### [facility] [address] [place] [address] Dr. Dioni Mayorga ALP [Catalytic activity/Vol] 62 U/L Normal 46-116 [facility] Comment on above: Performed By: #### F T3, LIPID, CMP, T7, TSH #### [facility] [address] [address] [address] Dioni Mayorga ALT [Catalytic activity/Vol] 20 U/L Normal 14-59 [facility] Comment on above: Performed By: #### F T3, LIPID, CMP, T7, TSH #### [facility] [address] [address] [address] Dioni Mayorga Anion gap [Moles/Vol] 14.0 mmol/L Normal [facility] Comment on above: Performed By: #### F T3, LIPID, CMP, T7, TSH #### [facility] [address] [address] [address] Dioni Mayorga AST [Catalytic activity/Vol] 12 U/L Critically low 15-37 [facility] Comment on above: Performed By: #### F T3, LIPID, CMP, T7, TSH #### [facility] [address] [address] [address] Dioni Mayorga Bilirubin [Mass/Vol] 0.4 mg/dL Normal 0.2-1.0 [facility] Comment on above: Performed By: #### F T3, LIPID, CMP, T7, TSH #### [facility] [address] [address] [address] Dioni Mayorga Calcium [Mass/Vol] 8.7 mg/dL Normal 8.5-10.1 [facility] Comment on above: Performed By: #### F T3, LIPID, CMP, T7, TSH #### [facility] [address] [place] [address] Dr. Dioni Mayorga Chloride [Moles/Vol] 105 mmol/L Normal 98-107 [facility] Comment on above: Performed By: #### F T3, LIPID, CMP, T7, TSH #### [facility] [address] [address] [address] Dioni Mayorga CO2 [Moles/Vol] 26.4 mmol/L Normal 21.0-32.0 [facility] Comment on above: Performed By: #### F T3, LIPID, CMP, T7, TSH #### [facility] [address] [address] [address] Dioni Mayorga Creatinine [Mass/Vol] 0.83 mg/dL Normal 0.55-1.02 [facility] Comment on above: Performed By: #### F T3, LIPID, CMP, T7, TSH #### [facility] [address] [place] [address] Dr. Dioni Mayorga EGFR-AF SOUTH AFRICAN >60 Normal >=60 [facility] Comment on above: Performed By: #### F T3, LIPID, CMP, T7, TSH #### [facility] [address] [place] [address] Dr. Dioni Mayorga EGFR-NON AF SOUTH AFRICAN >60 Normal >=60 [facility] Comment on above: Performed By: #### F T3, LIPID, CMP, T7, TSH #### [facility] [address] [address] [address] Dioni Mayorga Globulin (S) [Mass/Vol] 3.5 g/dL Normal [facility] Comment on above: Performed By: #### F T3, LIPID, CMP, T7, TSH #### [facility] [address] [address] [address] Dioni Mayorga Glucose [Mass/Vol] 78 mg/dL Normal 74-106 [facility] Comment on above: Performed By: #### F T3, LIPID, CMP, T7, TSH #### [facility] [address] [place] [address] Dr. Dioni Mayorga Potassium [Moles/Vol] 4.4 mmol/L Normal 3.5-5.1 [facility] Comment on above: Performed By: #### F T3, LIPID, CMP, T7, TSH #### [facility] [address] [place] [address] Dr. Dioni Mayorga Protein [Mass/Vol] 7.0 g/dL Normal 6.4-8.2 [facility] Comment on above: Performed By: #### F T3, LIPID, CMP, T7, TSH #### [facility] [address] [place] [address] Dr. Dioni Mayorga Sodium [Moles/Vol] 141 mmol/L Normal 136-145 [facility] Comment on above: Performed By: #### F T3, LIPID, CMP, T7, TSH #### [facility] [address] [place] [address] Dr. Dioni Mayorga Urea nitrogen [Mass/Vol] 16.0 mg/dL Normal 7.0-18.0 [facility] Comment on above: Performed By: #### F T3, LIPID, CMP, T7, TSH #### [facility] [address] [place] [address] Dr. Dioni Mayorga Urea nitrogen/Creatinine [Mass ratio] 19.3 mg/mg Normal [facility] Comment on above: Performed By: #### F T3, LIPID, CMP, T7, TSH #### [facility] [address] [place], [place] [address] Dr. Dioni Mayorga TSHon 08-02-2021 TSH 1.339 uIU/mL Normal 0.358-3.740 [facility] Comment on above: Performed By: #### F T3, LIPID, CMP, T7, TSH #### [facility] [address] [place], [place] [address] Dr. Dioni Mayorga Vital Signs Date Time Vital Sign Value Performing Clinician Faci lity 09-03-2021 08:51-0400 Blood Pressure Location MICHAEL NUGENT [facility] 09-03-2021 08:51-0400 Diastolic blood pressure 96 mm[Hg] MICHAEL NUGENT [facility] 09-03-2021 08:51-0400 Heart rate 106 /min MICHAEL NUGENT [facility] 09-03-2021 08:51-0400 Systolic blood pressure 138 mm[Hg] MICHAEL NUGENT [facility] Encounters Encounter Date Encounter Type Care Provider Facility Start: 01-11-2023 End: 01-12-2023 ambulatory Harish Cannon MD Facility:[facility] Start: 12-07-2022 End: 12-08-2022 ambulatory Harish Cannon MD Facility:[facility] Start: 11-23-2022 End: 11-24-2022 ambulatory Harish Cannon MD Facility:[facility] Start: 11-02-2022 End: 11-03-2022 ambulatory Harish Cannon MD Facility:[facility] Start: 03-02-2022 End: 03-02-2022 ambulatory SALVADOR GROSS Facility:[facility] Start: 12-15-2021 End: 12-15-2021 ambulatory SALVADOR GROSS Facility:[facility] Start: 12-09-2021 End: 12-09-2021 ambulatory SALVADOR GROSS Facility:[facility] Start: 09-17-2021 End: 09-18-[address] MONIKA MATTHEWS Facility:[facility] Start: 09-03-[address] MONIKA MATTHEWS Facility :[facility] Start: 09-03-2021 End: 09-03-2021 Patient encounter procedure MICHAEL NUGENT [facility] Start: 08-05-2021 Encounter for genera l adult medical examination without abnormal findings DR MONIKA MATTHEWS [facility] Start: 08-02-2021 End: 08-03-[address] MONIKA MATTHEWS Facility:[facility] Start: 08-02-2021 End: 08-03-2021 Encounter for general adult medical examination without abnormal findings DR MONIKA MATTHEWS Facility:[facility] Procedures Date Procedure Procedure Detail Performing Clinician Hysterectomy MICHAEL NUGENT Immunizations Immunization Date Immunization Notes Care Provider Fa cility NEGATED: Highlighted row has not occurred!09-03-2021 SARS-CoV-2 mRNA (tozinameran 5y-11y) vaccine MICHAEL NUGENT [facility] Payers Date Payer Category Payer Unknown [id number] 2022 Unknown 2019 Unknown [id number] 1970 Unknown [id number] 2.16.84 [id number] 1970 Unknown [id number] 2.16.84 [id number] 1970 Unknown [id number] 2.16.84 [id number] 1970 Unknown [id number] 2.16.84 [id number] 1970 Unknown [id number] 2.16.84 [id number] 1970 Unknown [id number] 2.16.84 [id number] 1970 Unknown [id number] 2.16. [id number] 1970 Unknown [id number] 2.16. [id number] 1970 Unknown [id number] 2.16. [id number] 1970 Unknown [id number] 2.16. [id number] Social History Date Type Detail Facility Start: 09-03-2021 Tobacco smoking status Never s moked tobacco (finding) [facility] Tobacco smoking status Never [facility] Sex Assigned At Female [facility] Stunable Functional Status Date Assessment Result Facility 09-03-2021 Functional Status N/A [facility] Hospital Discharge instructions 09-03-2021 Note Date & [...] (electrical nerve stimulation). For women, using a bilingual medical assistant to prevent urine leaks. This is a [...] right after experiencing incontinence. General instructions Take ffhy-qux-[id number] and prescription medicines only as told by [...] 03/11/2005 Document Revised: 02/11/2018 Document Reviewed: 05/13/2017 [employer] Patient Education [employer] Follow Up Care 08/06/2021 08:10:07 With:pt will call once she decides how she would like to proceed Address:Unknown When: Unknown [facility] Evaluation + Plan note Note Date & Type Note Facility Evaluation + Plan note Future Appointments Appointment Date:09/17/2021 08:30:00 AM Scheduled Provider: Location:[facility] Appointment Type:URO Nurse Visit [facility] Hospital course Narrative Note Date & Type Note Facility Hospital course Narrative No data available for this section [facility] Progress note Note Date & Type Note Facility Progress note No data available for this section [facility] Summary Purpose Family History No Family History Records FoundNo Family History Records FoundNo Family History Records Found Advance Directives No Advanced Directives Records FoundNo Advanced Directives Records FoundNo Advanced Directives Records Found Additional Source Comments Care Team (unrecognized sect ion and content) Personnel Name: Monika Matthews MD Address: [address] [place] [address] A [place] [address]- INFORMATION SOURCE (unrecogn ized section and content) DATE CREATED AUTHOR 09/18/2021 [facility] DATE CREATED AUTHOR AUTHOR'S ORGANIZ ATION 03/02/2022 [facility] DATE CREATED AUTHOR AUTHOR'S ORGANIZ ATION 01/15/2023 [facility] FOR RECORDS PERTAINING TO PATIENTS WHO ARE [...] BE BASED ON THE PRIMARY CLINICAL RECORDS. [facility]. provides no warranty or guarantee of the accuracy or completeness of information in this document.
== END 2023-02-04 16:07 | disposition home or self-care (01) ==
LOC: RAD 16:06
PROVIDERS: PCP Family Medicine; Visit Provider Nurse Practitioner
DX: M46.1 Sacroiliitis, not elsewhere classified (principal)
CPT/HCPCS: 72202

== ENCOUNTER 2023-03-11 08:09 | Outpatient (OUT) | payer BC, SELFPAY ==
--- OUTSIDE RECORDS SUMMARY | 2023-03-11 08:17 | XMS_ITS | CCD ---
Author Name Unknown Address [address] [place] [address] Organization [facility] Care Team Providers Care Ballistics Expert Forensic Name Role Phone Monika Matthews Primary Care [...] Value Interpretation Reference Range [facility]-15 SARS-CoV-2 (COVID-19) RNA YAMILET+probe Ql (Unsp spec) Not detected Normal NOT DETECTED [facility] Comment on above: Result Comment: When [...] for this test is supported by the [employer] Hospitalist of Health and Human Service's declaration that [...] be used). Performed By: #### C VDTB ####[facility] [address] [address]Dr. Dioni Mayorga INFLUENZA A AND B AGon 03-02 [facility] SEE BELOW Normal [facility] Comment on above: Result Comment: Nega tive for Flu A protein angiten. Infection due to Flu A cannot be ruled out. Flu A angiten in the sample may be below the detection limit of the test. Performed By: #### I NFLUAB #### [facility] [address] [place] [address] Dr. Dioni [facility] SEE BELOW Normal [facility] Comment on above: Result Comment: Nega tive for Flu B protein antigen. Infection due to Flu B cannot be ruled out. Flu B antigen in the sample may be below the detection limit of the test. Performed By: #### I NFLUAB #### [facility] [address] [address] [address] Dioni Mayorga INFLUENZA A AG Negative Normal NEGATIVE SEE COMMENT [facility] Comment on above: Performed By: #### I NFLUAB #### [facility] [address] [address] [address] Dioni Mayorga INFLUENZA B AG Negative Normal NEGATIVE SEE COMMENT [facility] Comment on above: Performed By: #### I NFLUAB #### [facility] [address] [place] [address] Dr. Dioni Mayorga ASYMPTOMATIC COVID-19 ANTIGE Non 12-15-2021 EUA Statement SEE BELOW Normal [facility] Comment on above: Result Comment: This [...] sooner. Performed By: #### C VDAGA #### [facility] [address] [place] [address] Dr. Dioni Mayorga SARS-CoV-2 (COVID-19) RNA YAMILET+probe Ql (Unsp spec) Negative Normal NEGATIVE [facility] Comment on above: Result Comment: Nega tive results are presumptive. They do not preclude infection and should not be used as the sole basis for treatment decisions. Additional confirmatory testing by a molecular method should be considered. Performed By: #### C VDAGA #### [facility] [address] [place] [address] Dr. Dioni Mayorga Covid-19 PCR ([facility])on 11-16 SARS-CoV-2 (COVID-19) RNA YAMILET+probe Ql (Unsp spec) Detected Critically abnormal NOT DETECTED [facility] Comment on above: Result Comment: This test is not yet approved or cleared by the [place] FDA. When there are no FDA-approved or cleared tests available, and other criteria are met, FDA can make tests available under an emergency access mechanism called an Emergency Use Authorization (EUA). The EUA for this test is supported by the [employer] Hospitalist of Health and Human Service's declaration that [...] be used). Performed By: #### C VDTB ####[facility] [address] [place], [place] [address]Uu. Dioni Mayorga MG MAMM SCREEN 3D DUSTIN CADon 09-17-2021 MG MAMM SCREEN 3D DUSTIN CAD Patient: BARBARA BACA Exam Date: 09/17/2021 : 1970 Gender:F Ordering : DR MONIKA MATTHEWS . Admission #: [id number] Family : Order #: [id number] CLICK HERE TO VIEW EXAM RADIOLOGY REPORT PROCEDURE: MAMMOGRAM SCREENING 3D BILATERAL CAD COMPARISON: MG MAMM SCREEN 3D DUSTIN CAD, 05/08/2020. MAMMO POST BIOPSY RIGHT, 01/04/2018. INDICATIONS: Screening mammography Calculator Name NCI Breast Cancer Risk Assessment Tool 5 Year Breast Cancer Risk 1.00% Lifetime Breast Cancer Risk 9.60% Personal Breast Cancer No Personal Ovarian Cancer No Treatments None Family Cancers None LOCATION: [facility] BREAST COMPOSITION: Scattered areas fibroglandular density. [...] Rodarte M.D. on 09/17/2021 at 13:13 Normal [facility] Formson 09-04-2021 Forms [id number] #1.00CD:127 Normal [facility] Patient Educationon 09-05-19 22 Patient Education Obstetrics [...] Take ove (more content not included)... Normal [facility] Physician Referralon 022 Physician Referral [id number] 0#1.00CD:127 Normal [facility] Urology Office/Clinic Noteon 09-04-2021 Urology [...] had hysterectomy about 10 yrs ago. previous EQUAL OPPORTUNITY REPRESENTATIVE advised her bladder had dropped a bit. [...] E&M of New Patient Moderate 45-59 Min 02435 Follow-up With When Contact Information pt will [...] - Not Given Postpone due to refusal [facility] Comment on above: Result Comment: Elec tronically Signed By: MICHAEL NUGENT PA-C\.br\Date and Time Signed: 09/04/21 09:42 EDT Ambulatory Visit Summaryon 0 09-03-2021 Ambulatory Visit Summary BARBARA BACA :1970 Visit Date:09/03/2021 Ambulatory Visit Instructions Your Diagnosis Stress incontinence Tests Performed Urnls Dip Stick Auto w/o Microscopy POC 73096 Your Care Team Attending Physician - MICHAEL [...] Urnls Dip Stick Auto w/o Microscopy POC 02682 (09/03/2021) Bilirubin Urine Dipstick - Negative Blood Urine Dipstick - Trace-intact Glucose Urine Dipstick - Negative Ketones Urine Dipstick - Negative Leukocytes Urine Dipstick - Negative Nitrite Urine Dipstick - Negative Protein Urine Dipstick - Negative Specific [place] Urine Dipstick - 1.020 Urine Appearance Urine Dipstick - Clear Urine Color Urine Dipstick - Yellow Urobilinogen Urine Dipstick - Normal 0.2-1 EU/dl pH Urine Dipstick - 5 Medications and Immunizations Administered Not Given SARS-CoV-2 mRNA (tozinameran 5y-11y) vac, Postpone due to refusal Allergies No Known Allergies No Known Medication Allergies Normal [facility] CBC AUTO DIFFon 08-02-2021 BASO # 0.0 103/ul Normal 0.0-0.1 [facility] Comment on above: Performed By: #### C BC #### [facility] [address] [address] [address] Dioni Mayorga Basophils/100 WBC (Bld) 0.4 % Normal 0.2-2.0 [facility] Comment on above: Performed By: #### C BC #### [facility] [address] [place] [address] Dr. Dioni Mayorga EO # 0.1 103/ul Normal 0.0-0.7 [facility] Comment on above: Performed By: #### C BC #### [facility] [address] [place] [address] Dr. Dioni Mayorga Eosinophils/100 WBC (Bld) 1.0 % Normal 0.9-7.0 [facility] Comment on above: Performed By: #### C BC #### [facility] [address] [address] [address] Dioni Mayorga Erythrocyte distribution width (RBC) [Ratio] 13.4 % Normal 11.0-15.0 [facility] Comment on above: Performed By: #### C BC #### [facility] [address] [place] [address] Dr. Dioni Mayorga Hematocrit (Bld) [Volume fraction] 45.2 % Normal 36.0-48.0 [facility] Comment on above: Performed By: #### C BC #### [facility] [address] [place] [address] Dr. Dioni Mayorga Hemoglobin (Bld) [Mass/Vol] 14.5 g/dL Normal 12.0-16.0 [facility] Comment on above: Performed By: #### C BC #### [facility] [address] [place] [address] Dr. Dioni Mayorga IG # 0.02 10e3/ul Normal 0.00-0.03 [facility] Comment on above: Performed By: #### C BC #### [facility] [address] [place] [address] Dr. Dioni Mayorga IG % 0.3 % Normal 0.0-0.5 [facility] Comment on above: Performed By: #### C BC #### [facility] [address] [place] [address] Dr. Dioni Mayorga LYMPH # 2.7 103/ul Normal 1.2-3.8 [facility] Comment on above: Performed By: #### C BC #### [facility] [address] [place] [address] Dr. Dioni Mayorga Lymphocytes/100 WBC (Bld) 38.7 % Normal 20.5-60.0 [facility] Comment on above: Performed By: #### C BC #### [facility] [address] [place] [address] Dr. Dioni Mayorga MANUAL DIFF REQ NO Normal [facility] Comment on above: Performed By: #### C BC #### [facility] [address] [place] [address] Dr. Dioni Mayorga MCH (RBC) [Entitic mass] 28.4 pg Normal 26.7-34.0 [facility] Comment on above: Performed By: #### C BC #### [facility] [address] [place] [address] Dr. Dioni Mayorga MCHC (RBC) [Mass/Vol] 32.1 g/dL Normal 29.9-35.[address] [facility] Comment on above: Performed By: #### C BC #### [facility] [address] [place] [address] Dr. Dioni Mayorga MCV (RBC) [Entitic vol] 88.5 fL Normal 81.0-99.0 [facility] Comment on above: Performed By: #### C BC #### [facility] [address] [place] [address] Dr. Dioni Mayorga MONO # 0.4 103/ul Normal 0.3-0.[address] [facility] Comment on above: Performed By: #### C BC #### [facility] [address] [place] [address] Dr. Dioni Mayorga Monocytes/100 WBC (Bld) 6.2 % Normal 1.7-12.[address] [facility] Comment on above: Performed By: #### C BC #### [facility] [address] [place] [address] Dr. Dioni Mayorga NEUT # 3.7 103/ul Normal 1.4-6.[address] [facility] Comment on above: Performed By: #### C BC #### [facility] [address] [place] [address] Dr. Dioni Mayorga Neutrophils/100 WBC (Bld) 53.4 % Normal 43.0-75.[address] [facility] Comment on above: Performed By: #### C BC #### [facility] [address] [place] [address] Dr. Dioni Mayorga Platelet mean volume (Bld) [Entitic vol] 10.4 fL Normal 9.5-13.[address] [facility] Comment on above: Performed By: #### C BC #### [facility] [address] [place] [address] Dr. Dioni Mayorga PLT 340 103/ul Normal 150-[address] [facility] Comment on above: Performed By: #### C BC #### [facility] [address] [place] [address] Dr. Dioni Mayorga RBC 5.11 106/ul Normal 4.20-5.[address] [facility] Comment on above: Performed By: #### C BC #### [facility] [address] [place] [address] Dr. Dioni Mayorga WBC 6.9 103/ul Normal 4.0-11.[address] [facility] Comment on above: Performed By: #### C BC #### [facility] [address] [place] [address] Dr. Dioni Mayorga FREE T3on 08-02-2021 FREE T3 1.49 pg/mlL Critically low 2.18-3.98 [facility] Comment on above: Performed By: #### F T3, LIPID, CMP, T7, TSH #### [facility] [address] [address] [address] Dioni Mayorga FREE THYROXINE INDEX T7on FTI 2.77 Normal 1.30-4.50 [facility] Comment on above: Performed By: #### F T3, LIPID, CMP, T7, TSH #### [facility] [address] [address] [address] Dioni Mayorga T3U 36.0 % Normal 30.0-39.0 [facility] Comment on above: Performed By: #### F T3, LIPID, CMP, T7, TSH #### [facility] [address] [address] [address] Dioni Mayorga T4 [Mass/Vol] 7.70 ug/dL Normal 4.80-13.90 [facility] Comment on above: Performed By: #### F T3, LIPID, CMP, T7, TSH #### [facility] [address] [address] [address] Dioni Mayorga GLYCOHEMOGLOBIN A1Con 2021 ADA RECOMMENDATION SEE BELOW Normal [facility] Comment on above: Result Comment: ADA RECOMMENDED LIMIT 4.0 - 6.0 ADA THERAPEUTIC TARGET < 7.0 ACTION SUGGESTED > 7.0 Performed By: #### A 1C #### [facility] [address] [address] [address] Dioni Mayorga Glucose [Mass/Vol] 111 mg/dL Normal [facility] Comment on above: Performed By: #### A 1C #### [facility] [address] [address] [address] Dioni Mayorga HbA1c (Bld) [Mass fraction] 5.5 % Normal 4.5-6.2 [facility] Comment on above: Performed By: #### A 1C #### [facility] [address] [address] [address] Dioni Mayorga LIPID PROFILEon 08-02-2021 CHOL-HDL RATIO NORM SEE BELOW Normal [facility] Comment on above: Result Comment: 3.3 - 4.4 LOW RISK 4.4 - 7.1 AVERAGE RISK 7.1 - 11.0 MODERATE RISK >11.0 HIGH RISK Performed By: #### F T3, LIPID, CMP, T7, TSH #### [facility] [address] [address] [address] Dioni Mayorga Cholesterol [Mass/Vol] 211 mg/dL Critically high <=200 [facility] Comment on above: Performed By: #### F T3, LIPID, CMP, T7, TSH #### [facility] [address] [address] [address] Dioni Mayorga Cholesterol in HDL [Mass/Vol] 48 mg/dL Normal 40-60 [facility] Comment on above: Performed By: #### F T3, LIPID, CMP, T7, TSH #### [facility] [address] [address] [address] Dioni Mayorga Cholesterol in LDL [Mass/Vol] 148.6 mg/dL Normal [facility] Comment on above: Performed By: #### F T3, LIPID, CMP, T7, TSH #### [facility] [address] [address] [address] Dioni Mayorga Cholesterol.total/Ch olesterol in HDL [Mass ratio] 4.4 {ratio} Normal [facility] Comment on above: Performed By: #### F T3, LIPID, CMP, T7, TSH #### [facility] [address] [address] [address] Dioni Mayorga HDL NORMAL > or = 60 mg/dl - LOW CARDIOVASCULAR RISK <40 mg/dl - HIGH CARDIOVASCULAR RISK Normal [facility] Comment on above: Performed By: #### F T3, LIPID, CMP, T7, TSH #### [facility] [address] [place] [address] Dr. Dioni Mayorga LDL CALC NORMAL SEE BELOW Normal [facility] Comment on above: Result Comment: <100 mg/dl OPTIMAL 100 - 129 mg/dl NEAR OR ABOVE OPTIMAL 130 - 159 mg/dl BORDERLINE HIGH 160 - 189 mg/dl HIGH >190 mg/dl VERY HIGH Performed By: #### F T3, LIPID, CMP, T7, TSH #### [facility] [address] [address] [address] Dioni Mayorga Triglyceride [Mass/Vol] 72 mg/dL Normal <=150 [facility] Comment on above: Performed By: #### F T3, LIPID, CMP, T7, TSH #### [facility] [address] [address] [address] Dioni Mayorga VLDL CALC 14.4 mg/dL Normal [facility] Comment on above: Performed By: #### F T3, LIPID, CMP, T7, TSH #### [facility] [address] [address] [address] Dioni Mayorga PROF 14(COMP METB)on 022 Albumin [Mass/Vol] 3.5 g/dL Normal 3.4-5.0 [facility] Comment on above: Performed By: #### F T3, LIPID, CMP, T7, TSH #### [facility] [address] [address] [address] Dioni Mayorga Albumin/Globulin [Mass ratio] 1.0 {ratio} Normal [facility] Comment on above: Performed By: #### F T3, LIPID, CMP, T7, TSH #### [facility] [address] [place] [address] Dr. Dioni Mayorga ALP [Catalytic activity/Vol] 62 U/L Normal 46-116 [facility] Comment on above: Performed By: #### F T3, LIPID, CMP, T7, TSH #### [facility] [address] [address] [address] Dioni Mayorga ALT [Catalytic activity/Vol] 20 U/L Normal 14-59 [facility] Comment on above: Performed By: #### F T3, LIPID, CMP, T7, TSH #### [facility] [address] [address] [address] Dioni Mayorga Anion gap [Moles/Vol] 14.0 mmol/L Normal [facility] Comment on above: Performed By: #### F T3, LIPID, CMP, T7, TSH #### [facility] [address] [address] [address] Dioni Mayorga AST [Catalytic activity/Vol] 12 U/L Critically low 15-37 [facility] Comment on above: Performed By: #### F T3, LIPID, CMP, T7, TSH #### [facility] [address] [address] [address] Dioni Mayorga Bilirubin [Mass/Vol] 0.4 mg/dL Normal 0.2-1.[address] [facility] Comment on above: Performed By: #### F T3, LIPID, CMP, T7, TSH #### [facility] [address] [address] [address] Dioni Mayorga Calcium [Mass/Vol] 8.7 mg/dL Normal 8.5-10.1 [facility] Comment on above: Performed By: #### F T3, LIPID, CMP, T7, TSH #### [facility] [address] [place] [address] Dr. Dioni Mayorga Chloride [Moles/Vol] 105 mmol/L Normal 98-[address] [facility] Comment on above: Performed By: #### F T3, LIPID, CMP, T7, TSH #### [facility] [address] [address] [address] Dioni Mayorga CO2 [Moles/Vol] 26.4 mmol/L Normal 21.0-32.0 [facility] Comment on above: Performed By: #### F T3, LIPID, CMP, T7, TSH #### [facility] [address] [address] [address] Dioni Mayorga Creatinine [Mass/Vol] 0.83 mg/dL Normal 0.55-1.02 [facility] Comment on above: Performed By: #### F T3, LIPID, CMP, T7, TSH #### [facility] [address] [place] [address] Dr. Dioni Mayorga EGFR-AF BURMESE >60 Normal >=60 [facility] Comment on above: Performed By: #### F T3, LIPID, CMP, T7, TSH #### [facility] [address] [place] [address] Dr. Dioni Mayorga EGFR-NON AF BURMESE >60 Normal >=60 [facility] Comment on above: Performed By: #### F T3, LIPID, CMP, T7, TSH #### [facility] [address] [address] [address] Dioni Mayorga Globulin (S) [Mass/Vol] 3.5 g/dL Normal [facility] Comment on above: Performed By: #### F T3, LIPID, CMP, T7, TSH #### [facility] [address] [address] [address] Dioni Mayorga Glucose [Mass/Vol] 78 mg/dL Normal 74-106 [facility] Comment on above: Performed By: #### F T3, LIPID, CMP, T7, TSH #### [facility] [address] [place] [address] Dr. Dioni Mayorga Potassium [Moles/Vol] 4.4 mmol/L Normal 3.5-5.1 [facility] Comment on above: Performed By: #### F T3, LIPID, CMP, T7, TSH #### [facility] [address] [place] [address] Dr. Dioni Mayorga Protein [Mass/Vol] 7.0 g/dL Normal 6.4-8.2 [facility] Comment on above: Performed By: #### F T3, LIPID, CMP, T7, TSH #### [facility] [address] [place] [address] Dr. Dioni Mayorga Sodium [Moles/Vol] 141 mmol/L Normal 136-145 [facility] Comment on above: Performed By: #### F T3, LIPID, CMP, T7, TSH #### [facility] [address] [place] [address] Dr. Dioni Mayorga Urea nitrogen [Mass/Vol] 16.0 mg/dL Normal 7.0-18.[address] [facility] Comment on above: Performed By: #### F T3, LIPID, CMP, T7, TSH #### [facility] [address] [place] [address] Dr. Dioni Mayorga Urea nitrogen/Creatinine [Mass ratio] 19.3 mg/mg Normal [facility] Comment on above: Performed By: #### F T3, LIPID, CMP, T7, TSH #### [facility] [address] [place], [place] [address] Dr. Dioni Mayorga TSHon 08-02-2021 TSH 1.339 uIU/mL Normal 0.358-3.740 [facility] Comment on above: Performed By: #### F T3, LIPID, CMP, T7, TSH #### [facility] [address] [place], [place] [address] Dr. Dioni Mayorga Vital Signs Date Time Vital Sign Value Performing Clinician Faci lity 09-03-2021 08:51-0400 Blood Pressure Location MICHAEL NUGENT [facility] 09-03-2021 08:51-0400 Diastolic blood pressure 96 mm[Hg] MICHAEL NUGENT [facility] 09-03-2021 08:51-0400 Heart rate 106 /min MICHAEL NUGENT [facility] 09-03-2021 08:51-0400 Systolic blood pressure 138 mm[Hg] MICHAEL NUGENT [facility] Encounters Encounter Date Encounter Type Care Provider Facility Start: 01-11-2023 End: 01-12-2023 ambulatory Harish Cannon MD Facility:[facility] Start: 12-07-2022 End: 12-08-2022 ambulatory Harish Cannon MD Facility:[facility] Start: 11-23-2022 End: 11-24-2022 ambulatory Harish Cannon MD Facility:[facility] Start: 11-02-2022 End: 11-03-2022 ambulatory Harish Cannon MD Facility:[facility] Start: 03-02-2022 End: 03-02-2022 ambulatory SALVADOR GROSS Facility:[facility] Start: 12-15-2021 End: 12-15-2021 ambulatory SALVADOR GROSS Facility:[facility] Start: 12-09-2021 End: 12-09-2021 ambulatory SALVADOR GROSS Facility:[facility] Start: 09-17-2021 End: 09-18-[address] MONIKA MATTHEWS Facility:[facility] Start: 09-03-[address] MONIKA MATTHEWS Facility :[facility] Start: 09-03-2021 End: 09-03-2021 Patient encounter procedure MICHAEL NUGENT [facility] Start: 08-05-2021 Encounter for genera l adult medical examination without abnormal findings DR MONIKA MATTHEWS [facility] Start: 08-02-2021 End: 08-03-[address] MONIKA MATTHEWS Facility:[facility] Start: 08-02-2021 End: 08-03-2021 Encounter for general adult medical examination without abnormal findings DR MONIKA MATTHEWS Facility:[facility] Procedures Date Procedure Procedure Detail Performing Clinician Hysterectomy MICHAEL NUGENT Immunizations Immunization Date Immunization Notes Care Provider Fa cility NEGATED: Highlighted row has not occurred!09-03-2021 SARS-CoV-2 mRNA (tozinameran 5y-11y) vaccine MICHAEL NUGENT [facility] Payers Date Payer Category Payer Unknown [id number] 2022 Unknown 2019 Unknown [id number] 1970 Unknown [id number] 2.16.84 [id number] 1970 Unknown [id number] 2.16.84 [id number] 1970 Unknown [id number] 2.16.84 [id number] 1970 Unknown [id number] 2.16.84 [id number] 1970 Unknown [id number] 2.16.84 [id number] 1970 Unknown [id number] 2.16.84 [id number] 1970 Unknown [id number] 2.16. [id number] 1970 Unknown [id number] 2.16. [id number] 1970 Unknown [id number] 1970 Unknown [id number] Social History Date Type Detail Facility Start: 09-03-2021 Tobacco smoking status Never s moked tobacco (finding) [facility] Tobacco smoking status Never [facility] Sex Assigned At Female [facility] [employer] Functional Status Date Assessment Result Facility 09-03-2021 Functional Status N/A [facility] Discharge instructions 09-03-2021 Note Date & [...] nerve stimulation). For women, using a medical superintendent to prevent urine leaks. This is a [...] right after experiencing incontinence. General instructions Take hwyy-aol-aenvpyp and prescription medicines only as told by [...] 03/11/2005 Document Revised: 02/11/2018 Document Reviewed: 05/13/2017 [employer] Patient Education [employer]. Follow Up Care 08/06/2021 08:10:07 With:pt will call once she decides how she would like to proceed Address:Unknown When: Unknown [facility] Evaluation + Plan note Note Date & Type Note Facility Evaluation + Plan note Future Appointments Appointment Date:09/17/2021 08:30:00 AM Scheduled Provider: Location:[facility] Appointment Type:URO Nurse Visit [facility] Hospital course Narrative Note Date & Type Note Facility Hospital course Narrative No data available for this section [facility] Progress note Note Date & Type Note Facility Progress note No data available for this section [facility] Summary Purpose Family History No Family History Records FoundNo Family History Records FoundNo Family History Records Found Advance Directives No Advanced Directives Records FoundNo Advanced Directives Records FoundNo Advanced Directives Records Found Additional Source Comments Care Team (unrecognized sect ion and content) Personnel Name: Monika Matthews MD Address: [address] [place] [address] [place] [address]- INFORMATION SOURCE (unrecogn ized section and content) DATE CREATED AUTHOR 09/18/2021 [facility] DATE CREATED AUTHOR AUTHOR'S ORGANIZ ATION 03/02/2022 [facility] DATE CREATED AUTHOR AUTHOR'S ORGANIZ ATION 01/15/[address] [facility] FOR RECORDS PERTAINING TO PATIENTS WHO [...] BE BASED ON THE PRIMARY CLINICAL RECORDS. [facility] [facility]. provides no warranty or guarantee of the accuracy or completeness of information in this document.
--- NOTE | 2023-03-11 08:38 | PM.CN ---
Consult Note: HPI Data of Consult Patient: known to practice within the last 3 years Requesting Physician: Therese Montelongo NP Primary Care Provider: Romero Dykes MD Consult Narrative Reason for consult: f/u Narrative: Barbara Ovalle a pleasant 52 year old female presents for evaluation and management of low back pain. Today rating pain 5/10 and describes it as an ache. Patient initially reported 50% relief from bilateral L4-5 L5-s1 thermal RFA, however she is noticing increase in her pain and discomfort in sacral area bilaterally, left worse than right and pain over left buttock. Patient would like to discuss options today, reported she cannot afford to continue procedures and injections. cc:: CC: Therese Motnelongo NP Review of Systems ROS Status of ROS 10 or more systems reviewed and unremarkable except as noted in history and below Musculoskeletal Reports: back pain, extremity pain and joint pain PFSH PFSH Medical History Low back ache ?M54.50 - Low back pain, unspecified (ICD-10) Obesity ?E66.9 - Obesity, unspecified (ICD-10) Surgical History H/O tooth extraction ?K08.409 - Partial loss of teeth, unspecified cause, unspecified class (ICD-10) H/O: hysterectomy ?Z90.710 - Acquired absence of both cervix and uterus (ICD-10) Meds Home Medications and Allergies Home Medications Medication Instructions Recorded Confirmed Type ibuprofen 200 mg capsule 800 mg PO Q12H PRN pain 11/02/22 01/11/23 History loratadine-pseudoephedrine ER 10 1 tab PO DAILY 11/02/22 01/11/23 History mg-240 mg tablet,extended [id number] (Claritin-D 24 Hour) tizanidine 4 mg tablet 4 mg PO BID PRN muscle spasticity 12/02/22 01/11/23 Rx #45 tabs diazepam 10 mg tablet mg 01/11/23 History Allergies Allergy/AdvReac Type Severity Reaction Status Date / Time No Known Drug Allergies Allergy Verified 01/11/23 08:48 Exam Constitutional Documenting provider has reviewed patient's vital signs: yes Common normals: no apparent distress, oriented x3, healthy appearing, alert and well nourished General appearance: cooperative Nutritional appearance: obese [facility] Common normals: normocephalic, hearing grossly normal bilaterally and moist oral mucous membranes Head and scalp: normocephalic Eye Common normals: PERRL Pupil: PERRL Neck & C-Spine Common normals: full ROM General: normal visual inspection Chest Common normals: inspection of chest normal Respiratory Common normals: normal respiratory effort, no retractions and no use of accessory muscles Back & Pelvis Common normals: no CVA tenderness Lumbar spine/lower back: straight leg raise negative bilaterally Sacroiliac joints: SI joint(s) abnormal Other: negative facet loading, no radiculopathy pain over area noted below, positive ROBBI/FADIR negative internal and external rotation trigger points noted in left superior gluteal muscle (gluteal zohra) Back image (female): 1. Extremity Common normals: normal to inspection and full ROM Neuro Common normals: oriented x3, CN's II-XII intact bilaterally, moves all extremities, no focal motor deficits, no sensory deficits noted, deep tendon reflexes 2+ bilaterally and gait normal Sensorium/orientation: alert Motor exam: strength 5/5 throughout and no movement abnormalities noted Psych Common normals: mental status grossly normal, thought process normal, cooperative, affect normal, speech normal and activity/motor behavior normal Speech: normal speech Thought process: normal thought process Results Additional Findings Additional findings: I have checked an OARRS report on this patient today and there are no aberrancies noted in the prescribing history.?? A drug screen was completed and reviewed within the last year, and if there has not been a drug screen completed we ordered one today to monitor higher risk, state monitored pain medication use. As part of providing excellent, safe, comprehensive care, the following was completed at our patient's visit: 1. A medication reconciliation and review to ensure accurate knowledge of current/active medications, including asking our patients to inform us about any ekcy-sza-kddcxkg medications or herbal remedies/nutritional supplements/alternative remedies. 2. A review to specifically ensure our patients have had annual screening for: elevated body mass index (BMI), tobacco use, screening for depression, and screening for unhealthy alcohol use. When screening is concerning, patients are provided with education and the specific recommendation to discuss the concerning health issue and treatment options with their primary care provider. Assessment and Plan Assessment and Plan (1) Lumbar spondylosis: (2) Muscle spasm: Assessment and Plan: left gluteus zohra/superior gluteal TPI : The procedure risks, hazards and alternatives were discussed with the patient and a proper consent was obtained. The area over the myofascial spasm was prepped with alcohol utilizing sterile technique. After isolating it between two palpating fingertips a 25-gauge 5 needle was placed in the center of the myofascial spasms and a negative aspiration was performed. Then 4 cc of bupivicaine 0.25% and 40mg triamcinilone was injected into each trigger point. The patient tolerated the procedure well without any apparent difficulties or complications. They were feeling relief by the time the block had set. (3) Sacroiliitis: (4) Piriformis syndrome of left side: (5) Myofascial pain syndrome: Plan continue tizanidine 4mg 1-2 tabs BID PRN continue tens unit, finding great benefit start HEP for left piriformis syndrome start diclofenac 100mg ER f/u 2-4 weeks, as needed. can consider repeat TPI with bupivicaine without steroid
== END 2023-03-11 08:10 | disposition home or self-care (01) ==
LOC: PM 08:15
PROVIDERS: PCP Family Medicine; Visit Provider Nurse Practitioner
DX: M47.816 Spondylosis without myelopathy or radiculopathy, lumbar region (principal); M62.838 Other muscle spasm
CPT/HCPCS: 20552; J0665; J3301

== ENCOUNTER 2023-04-16 10:55 | Emergency (ER) | payer BC, SELFPAY ==
[2023-04-16 11:02] VITALS: BP 97/72; PULSE 112; RESP 18; TEMP 36.4; O2SAT 98; BMI 37.8
--- OUTSIDE RECORDS SUMMARY | 2023-04-16 11:17 | XMS_ITS | CCD ---
Author Name Unknown Address [address] [place] [address] Organization [facility] Care Team Providers Care Salvage Determiner Name Role Phone Monika Matthews Primary Care Physician [phone] CASSIE, DR FRANK Admitting Unavailable CASSIE, DR [...] Value Interpretation Reference Range Facility [facility]15 SARS-CoV-2 (COVID-19) RNA YAMILET+probe Ql (Unsp spec) Not detected Normal NOT DETECTED [facility] Comment on above: Result Comment: When [...] for this test is supported by the [place] of Health and Human Service's declaration that [...] be used). Performed By: #### C VDTB ####[facility] [address] [address]Dr. Dioni Mayorga INFLUENZA A AND B AGon 03-02 [facility] SEE BELOW Normal [facility] Comment on above: Result Comment: Nega tive for Flu A protein angiten. Infection due to Flu A cannot be ruled out. Flu A angiten in the sample may be below the detection limit of the test. Performed By: #### I NFLUAB #### [facility] [address] [place] [address] Dr. Dioni Mayorga [facility] SEE BELOW Normal [facility] Comment on above: Result Comment: Nega tive for Flu B protein antigen. Infection due to Flu B cannot be ruled out. Flu B antigen in the sample may be below the detection limit of the test. Performed By: #### I NFLUAB #### [facility] [address] [address] [address] Dioni Mayorga INFLUENZA A AG Negative Normal NEGATIVE SEE COMMENT [facility] Comment on above: Performed By: #### I NFLUAB #### [facility] [address] [address] [address] Dioni Mayorga INFLUENZA B AG Negative Normal NEGATIVE SEE COMMENT [facility] Comment on above: Performed By: #### I NFLUAB #### [facility] [address] [place] [address] Dr. Dioni Mayorga ASYMPTOMATIC COVID-19 ANTIGE Non 12-15-2021 EUA Statement SEE BELOW Normal [facility] Comment on above: Result Comment: This test [...] sooner. Performed By: #### C VDAGA #### [facility] [address] [place] [address] Dr. Dioni Mayorga SARS-CoV-2 (COVID-19) RNA YAMILET+probe Ql (Unsp spec) Negative Normal NEGATIVE [facility] Comment on above: Result Comment: Nega tive results are presumptive. They do not preclude infection and should not be used as the sole basis for treatment decisions. Additional confirmatory testing by a molecular method should be considered. Performed By: #### C VDAGA #### [facility] [address] [place] [address] Dr. Dioni Mayorga Covid-19 PCR ([facility])on 11-16 SARS-CoV-2 (COVID-19) RNA YAMILET+probe Ql (Unsp spec) Detected Critically abnormal NOT DETECTED [facility] Comment on above: Result Comment: This test is not yet approved or cleared by the [place] FDA. When there are no FDA-approved or cleared tests available, and other criteria are met, FDA can make tests available under an emergency access mechanism called an Emergency Use Authorization (EUA). The EUA for this test is supported by the [place] of Health and Human Service's declaration that [...] be used). Performed By: #### C VDTB ####[facility] [address] [place], [place] [address]Xq. Dioni Mayorga MG MAMM SCREEN 3D DUSTIN CADon 09-17-2021 MG MAMM SCREEN 3D DUSTIN CAD Patient: BARBARA BACA Exam Date: 09/17/2021 : 1970 Gender:F Ordering : DR MONIKA MATTHEWS . Admission #: [id number] Family : Order #: [id number] CLICK HERE TO VIEW EXAM RADIOLOGY REPORT PROCEDURE: MAMMOGRAM SCREENING 3D BILATERAL CAD COMPARISON: MG MAMM SCREEN 3D DUSTIN CAD, 05/08/2020. MAMMO POST BIOPSY RIGHT, 01/04/2018. INDICATIONS: Screening mammography Calculator Name NCI Breast Cancer Risk Assessment Tool 5 Year Breast Cancer Risk 1.00% Lifetime Breast Cancer Risk 9.60% Personal Breast Cancer No Personal Ovarian Cancer No Treatments None Family Cancers None LOCATION: [facility] BREAST COMPOSITION: Scattered areas fibroglandular density. [...] Rodarte M.D. on 09/17/2021 at 13:13 Normal [facility] Formson 09-04-2021 Forms [id number] #1.00CD:127 Normal [facility] Patient Educationon 09-05-19 22 Patient Education Obstetrics [...] (more content not included)... Normal [facility] Physician Referralon 022 Physician Referral [id number]#1.00CD:127 Normal [facility] Urology Office/Clinic Noteon 09-04-2021 Urology [...] had hysterectomy about 10 yrs ago. previous PRIMARY EDUCATION PROFESSOR advised her bladder had dropped a bit. [...] E&M of New Patient Moderate 45-59 Min [id number] Follow-up With When Contact Information pt will [...] - Not Given Postpone due to refusal [facility] Comment on above: Result Comment: Elec tronically Signed By: MICHAEL NUGENT PA-C\.br\Date and Time Signed: 09/04/21 09:42 EDT Ambulatory Visit Summaryon 0 09-03-2021 Ambulatory Visit Summary BARBARA BACA :1970 Visit Date:09/03/2021 Ambulatory Visit Instructions Your Diagnosis Stress incontinence Tests Performed Urnls Dip Stick Auto w/o Microscopy POC 00154 Your Care Team Attending Physician - MICHAEL [...] Urnls Dip Stick Auto w/o Microscopy POC 63536 (09/03/2021) Bilirubin Urine Dipstick - Negative Blood Urine Dipstick - Trace-intact Glucose Urine Dipstick - Negative Ketones Urine Dipstick - Negative Leukocytes Urine Dipstick - Negative Nitrite Urine Dipstick - Negative Protein Urine Dipstick - Negative Specific [place] Urine Dipstick - 1.020 Urine Appearance Urine Dipstick - Clear Urine Color Urine Dipstick - Yellow Urobilinogen Urine Dipstick - Normal 0.2-1 EU/dl pH Urine Dipstick - 5 Medications and Immunizations Administered Not Given SARS-CoV-2 mRNA (tozinameran 5y-11y) vac, Postpone due to refusal Allergies No Known Allergies No Known Medication Allergies Normal [facility] CBC AUTO DIFFon 08-02-2021 BASO # 0.0 103/ul Normal 0.0-0.1 [facility] Comment on above: Performed By: #### C BC #### [facility] [address] [address] [address] Dioni Mayorga Basophils/100 WBC (Bld) 0.4 % Normal 0.2-2.0 [facility] Comment on above: Performed By: #### C BC #### [facility] [address] [place] [address] Dr. Dioni Mayorga EO # 0.1 103/ul Normal 0.0-0.7 [facility] Comment on above: Performed By: #### C BC #### [facility] [address] [place] [address] Dr. Dioni Mayorga Eosinophils/100 WBC (Bld) 1.0 % Normal 0.9-7.0 [facility] Comment on above: Performed By: #### C BC #### [facility] [address] [address] [address] Dioni Mayorga Erythrocyte distribution width (RBC) [Ratio] 13.4 % Normal 11.0-15.0 [facility] Comment on above: Performed By: #### C BC #### [facility] [address] [place] [address] Dr. Dioni Mayorga Hematocrit (Bld) [Volume fraction] 45.2 % Normal 36.0-48.0 [facility] Comment on above: Performed By: #### C BC #### [facility] [address] [place] [address] Dr. Dioni Mayorga Hemoglobin (Bld) [Mass/Vol] 14.5 g/dL Normal 12.0-16.0 [facility] Comment on above: Performed By: #### C BC #### [facility] [address] [place] [address] Dr. Dioni Mayorga IG # 0.02 10e3/ul Normal 0.00-0.03 [facility] Comment on above: Performed By: #### C BC #### [facility] [address] [place] [address] Dr. Dioni Mayorga IG % 0.3 % Normal 0.0-0.5 [facility] Comment on above: Performed By: #### C BC #### [facility] [address] [place] [address] Dr. Dioni Mayorga LYMPH # 2.7 103/ul Normal 1.2-3.8 [facility] Comment on above: Performed By: #### C BC #### [facility] [address] [place] [address] Dr. Dioni Mayorga Lymphocytes/100 WBC (Bld) 38.7 % Normal 20.5-60.0 [facility] Comment on above: Performed By: #### C BC #### [facility] [address] [place] [address] Dr. Dioni Mayorga MANUAL DIFF REQ NO Normal [facility] Comment on above: Performed By: #### C BC #### [facility] [address] [place] [address] Dr. Dioni Mayorga MCH (RBC) [Entitic mass] 28.4 pg Normal 26.7-34.0 [facility] Comment on above: Performed By: #### C BC #### [facility] [address] [place] [address] Dr. Dioni Mayorga MCHC (RBC) [Mass/Vol] 32.1 g/dL Normal 29.9-35.2 [facility] Comment on above: Performed By: #### C BC #### [facility] [address] [place] [address] Dr. Dioni Mayorga MCV (RBC) [Entitic vol] 88.5 fL Normal 81.0-99.0 [facility] Comment on above: Performed By: #### C BC #### [facility] [address] [place] [address] Dr. Dioni Mayorga MONO # 0.4 103/ul Normal 0.3-0.8 [facility] Comment on above: Performed By: #### C BC #### [facility] [address] [place] [address] Dr. Dioni Mayorga Monocytes/100 WBC (Bld) 6.2 % Normal 1.7-12.0 [facility] Comment on above: Performed By: #### C BC #### [facility] [address] [place] [address] Dr. Dioni Mayorga NEUT # 3.7 103/ul Normal 1.4-6.5 [facility] Comment on above: Performed By: #### C BC #### [facility] [address] [place] [address] Dr. Dioni Mayorga Neutrophils/100 WBC (Bld) 53.4 % Normal 43.0-75.0 [facility] Comment on above: Performed By: #### C BC #### [facility] [address] [place] [address] Dr. Dioni Mayorga Platelet mean volume (Bld) [Entitic vol] 10.4 fL Normal 9.5-13.5 [facility] Comment on above: Performed By: #### C BC #### [facility] [address] [place] [address] Dr. Dioni Mayorga PLT 340 103/ul Normal 150-450 [facility] Comment on above: Performed By: #### C BC #### [facility] [address] [place] [address] Dr. Dioni Mayorga RBC 5.11 106/ul Normal 4.20-5.40 [facility] Comment on above: Performed By: #### C BC #### [facility] [address] [place] [address] Dr. Dioni Mayorga WBC 6.9 103/ul Normal 4.0-11.0 [facility] Comment on above: Performed By: #### C BC #### [facility] [address] [place] [address] Dr. Dioni Mayorga FREE T3on 08-02-2021 FREE T3 1.49 pg/mlL Critically low 2.18-3.98 [facility] Comment on above: Performed By: #### F T3, LIPID, CMP, T7, TSH #### [facility] [address] [address] [address] Dioni Mayorga FREE THYROXINE INDEX T7on FTI 2.77 Normal 1.30-4.50 [facility] Comment on above: Performed By: #### F T3, LIPID, CMP, T7, TSH #### [facility] [address] [address] [address] Dioni Mayorga T3U 36.0 % Normal 30.0-39.0 [facility] Comment on above: Performed By: #### F T3, LIPID, CMP, T7, TSH #### [facility] [address] [address] [address] Dioni Mayorga T4 [Mass/Vol] 7.70 ug/dL Normal 4.80-13.90 [facility] Comment on above: Performed By: #### F T3, LIPID, CMP, T7, TSH #### [facility] [address] [address] [address] Dioni Mayorga GLYCOHEMOGLOBIN A1Con 2021 ADA RECOMMENDATION SEE BELOW Normal [facility] Comment on above: Result Comment: ADA RECOMMENDED LIMIT 4.0 - 6.0 ADA THERAPEUTIC TARGET < 7.0 ACTION SUGGESTED > 7.0 Performed By: #### A 1C #### [facility] [address] [address] [address] Dioni Mayorga Glucose [Mass/Vol] 111 mg/dL Normal [facility] Comment on above: Performed By: #### A 1C #### [facility] [address] [address] [address] Dioni Mayorga HbA1c (Bld) [Mass fraction] 5.5 % Normal 4.5-6.2 [facility] Comment on above: Performed By: #### A 1C #### [facility] [address] [address] [address] Dioni Mayorga LIPID PROFILEon 08-02-2021 CHOL-HDL RATIO NORM SEE BELOW Normal [facility] Comment on above: Result Comment: 3.3 - 4.4 LOW RISK 4.4 - 7.1 AVERAGE RISK 7.1 - 11.0 MODERATE RISK >11.0 HIGH RISK Performed By: #### F T3, LIPID, CMP, T7, TSH #### [facility] [address] [address] [address] Dioni Mayorga Cholesterol [Mass/Vol] 211 mg/dL Critically high <=200 [facility] Comment on above: Performed By: #### F T3, LIPID, CMP, T7, TSH #### [facility] [address] [address] [address] Dioni Mayorga Cholesterol in HDL [Mass/Vol] 48 mg/dL Normal 40-60 [facility] Comment on above: Performed By: #### F T3, LIPID, CMP, T7, TSH #### [facility] [address] [address] [address] Dioni Mayorga Cholesterol in LDL [Mass/Vol] 148.6 mg/dL Normal [facility] Comment on above: Performed By: #### F T3, LIPID, CMP, T7, TSH #### [facility] [address] [address] [address] Dioni Mayorga Cholesterol.total/Ch olesterol in HDL [Mass ratio] 4.4 {ratio} Normal [facility] Comment on above: Performed By: #### F T3, LIPID, CMP, T7, TSH #### [facility] [address] [address] [address] Dioni Mayorga HDL NORMAL > or = 60 mg/dl - LOW CARDIOVASCULAR RISK <40 mg/dl - HIGH CARDIOVASCULAR RISK Normal [facility] Comment on above: Performed By: #### F T3, LIPID, CMP, T7, TSH #### [facility] [address] [place] [address] Dr. Dioni Mayorga LDL CALC NORMAL SEE BELOW Normal [facility] Comment on above: Result Comment: <100 mg/dl OPTIMAL 100 - 129 mg/dl NEAR OR ABOVE OPTIMAL 130 - 159 mg/dl BORDERLINE HIGH 160 - 189 mg/dl HIGH >190 mg/dl VERY HIGH Performed By: #### F T3, LIPID, CMP, T7, TSH #### [facility] [address] [address] [address] Dioni Mayorga Triglyceride [Mass/Vol] 72 mg/dL Normal <=150 [facility] Comment on above: Performed By: #### F T3, LIPID, CMP, T7, TSH #### [facility] [address] [address] [address] Dioni Mayorga VLDL CALC 14.4 mg/dL Normal [facility] Comment on above: Performed By: #### F T3, LIPID, CMP, T7, TSH #### [facility] [address] [address] [address] Dioni Mayorga PROF 14(COMP METB)on 022 Albumin [Mass/Vol] 3.5 g/dL Normal 3.4-5.0 [facility] Comment on above: Performed By: #### F T3, LIPID, CMP, T7, TSH #### [facility] [address] [address] [address] Dioni Mayorga Albumin/Globulin [Mass ratio] 1.0 {ratio} Normal [facility] Comment on above: Performed By: #### F T3, LIPID, CMP, T7, TSH #### [facility] [address] [place] [address] Dr. Dioni Mayorga ALP [Catalytic activity/Vol] 62 U/L Normal 46-116 [facility] Comment on above: Performed By: #### F T3, LIPID, CMP, T7, TSH #### [facility] [address] [address] [address] Dioni Mayorga ALT [Catalytic activity/Vol] 20 U/L Normal 14-59 [facility] Comment on above: Performed By: #### F T3, LIPID, CMP, T7, TSH #### [facility] [address] [address] [address] Dioni Mayorga Anion gap [Moles/Vol] 14.0 mmol/L Normal [facility] Comment on above: Performed By: #### F T3, LIPID, CMP, T7, TSH #### [facility] [address] [address] [address] Dioni Mayorga AST [Catalytic activity/Vol] 12 U/L Critically low 15-37 [facility] Comment on above: Performed By: #### F T3, LIPID, CMP, T7, TSH #### [facility] [address] [address] [address] Dioni Mayorga Bilirubin [Mass/Vol] 0.4 mg/dL Normal 0.2-1.0 [facility] Comment on above: Performed By: #### F T3, LIPID, CMP, T7, TSH #### [facility] [address] [address] [address] Dioni Mayorga Calcium [Mass/Vol] 8.7 mg/dL Normal 8.5-10.1 [facility] Comment on above: Performed By: #### F T3, LIPID, CMP, T7, TSH #### [facility] [address] [place] [address] Dr. Dioni Mayorga Chloride [Moles/Vol] 105 mmol/L Normal 98-107 [facility] Comment on above: Performed By: #### F T3, LIPID, CMP, T7, TSH #### [facility] [address] [address] [address] Dioni Mayorga CO2 [Moles/Vol] 26.4 mmol/L Normal 21.0-32.0 [facility] Comment on above: Performed By: #### F T3, LIPID, CMP, T7, TSH #### [facility] [address] [address] [address] Dioni Mayorga Creatinine [Mass/Vol] 0.83 mg/dL Normal 0.55-1.02 [facility] Comment on above: Performed By: #### F T3, LIPID, CMP, T7, TSH #### [facility] [address] [place] [address] Dr. Dioni Mayorga EGFR-AF HONG [place]ER >60 Normal >=60 [facility] Comment on above: Performed By: #### F T3, LIPID, CMP, T7, TSH #### [facility] [address] [place] [address] Dr. Dioni Mayorga EGFR-NON AF [place] >60 Normal >=60 [facility] Comment on above: Performed By: #### F T3, LIPID, CMP, T7, TSH #### [facility] [address] [address] [address] Dioni Mayorga Globulin (S) [Mass/Vol] 3.5 g/dL Normal [facility] Comment on above: Performed By: #### F T3, LIPID, CMP, T7, TSH #### [facility] [address] [address] [address] Dioni Mayorga Glucose [Mass/Vol] 78 mg/dL Normal 74-106 [facility] Comment on above: Performed By: #### F T3, LIPID, CMP, T7, TSH #### [facility] [address] [place] [address] Dr. Dioni Mayorga Potassium [Moles/Vol] 4.4 mmol/L Normal 3.5-5.1 [facility] Comment on above: Performed By: #### F T3, LIPID, CMP, T7, TSH #### [facility] [address] [place] [address] Dr. Dioni Mayorga Protein [Mass/Vol] 7.0 g/dL Normal 6.4-8.2 [facility] Comment on above: Performed By: #### F T3, LIPID, CMP, T7, TSH #### [facility] [address] [place] [address] Dr. Dioni Mayorga Sodium [Moles/Vol] 141 mmol/L Normal 136-145 [facility] Comment on above: Performed By: #### F T3, LIPID, CMP, T7, TSH #### [facility] [address] [place] [address] Dr. Dioni Mayorga Urea nitrogen [Mass/Vol] 16.0 mg/dL Normal 7.0-18.0 [facility] Comment on above: Performed By: #### F T3, LIPID, CMP, T7, TSH #### [facility] [address] [place] [address] Dr. Dioni Mayorga Urea nitrogen/Creatinine [Mass ratio] 19.3 mg/mg Normal [facility] Comment on above: Performed By: #### F T3, LIPID, CMP, T7, TSH #### [facility] [address] [place], [place] [address] Dr. Dioni Mayorga TSHon 08-02-2021 TSH 1.339 uIU/mL Normal 0.358-3.740 [facility] Comment on above: Performed By: #### F T3, LIPID, CMP, T7, TSH #### [facility] [address] [place], [place] [address] Dr. Dioni Mayorga Vital Signs Date Time Vital Sign Value Performing Clinician Faci lity 09-03-2021 08:51-0400 Blood Pressure Location MICHAEL NUGENT [facility] 09-03-2021 08:51-0400 Diastolic blood pressure 96 mm[Hg] MICHAEL NUGENT [facility] 09-03-2021 08:51-0400 Heart rate 106 /min MICHAEL NUGENT [facility] 09-03-2021 08:51-0400 Systolic blood pressure 138 mm[Hg] MICHAEL NUGENT [facility] Encounters Encounter Date Encounter Type Care Provider Facility Start: 01-11-2023 End: 01-12-2023 ambulatory Harish Cannon MD Facility:[facility] Start: 12-07-2022 End: 12-08-2022 ambulatory Harish Cannon MD Facility:[facility] Start: 11-23-2022 End: 11-24-2022 ambulatory Harish Cannon MD Facility:[facility] Start: 11-02-2022 End: 11-03-2022 ambulatory Harish Cannon MD Facility:[facility] Start: 03-02-2022 End: 03-02-2022 ambulatory SALVADOR GROSS Facility:[facility] Start: 12-15-2021 End: 12-15-2021 ambulatory SALVADOR GROSS Facility:[facility] Start: 12-09-2021 End: 12-09-2021 ambulatory SALVADOR GROSS Facility:[facility] Start: 09-17-2021 End: 09-18-[address] MONIKA MATTHEWS Facility:[facility] Start: 09-03-[address] MONIKA MATHTEWS Facility :[facility] Start: 09-03-2021 End: 09-03-2021 Patient encounter procedure MICHAEL NUGENT [facility] Start: 08-05-2021 Encounter for genera l adult medical examination without abnormal findings DR MONIKA MATTHEWS [facility] Start: 08-02-2021 End: 08-03-[address] MONIKA MATTHEWS Facility:[facility] Start: 08-02-2021 End: 08-03-2021 Encounter for general adult medical examination without abnormal findings DR MONIKA MATTHEWS Facility:[facility] Procedures Date Procedure Procedure Detail Performing Clinician Hysterectomy MICHAEL NUGENT Immunizations Immunization Date Immunization Notes Care Provider Fa cility NEGATED: Highlighted row has not occurred!09-03-2021 SARS-CoV-2 mRNA (tozinameran 5y-11y) vaccine MICHAEL NUGENT [facility] Payers Date Payer Category Payer Unknown [id number] 2022 Unknown 2019 Unknown [id number] 1970 Unknown [id number] 2.16.84 [id number] 1970 Unknown [id number] 2.16.84 [id number] 1970 Unknown [id number] 2.16.84 [id number] 1970 Unknown [id number] 2.16.84 [id number] 1970 Unknown [id number] 2.16.84 [id number] 1970 Unknown [id number] 2.16.84 [id number] 1970 Unknown [id number] 2.16. [id number] 1970 Unknown [id number] 2.16. [id number] 1970 Unknown [id number] 2.16. [id number] 1970 Unknown [id number] 2.16. [id number] Social History Date Type Detail Facility Start: 09-03-2021 Tobacco smoking status Never s moked tobacco (finding) [facility] Tobacco smoking status Never [facility] Sex Assigned At Female [facility] [employer] Functional Status Date Assessment Result Facility 09-03-2021 Functional Status N/A [facility] Discharge instructions 09-03-2021 Note Date & [...] (electrical nerve stimulation). For women, using a ophthalmic medical technologist to prevent urine leaks. This is a [...] right after experiencing incontinence. General instructions Take wbge-idn-xdsmjvu and prescription medicines only as told by [...] 03/11/2005 Document Revised: 02/11/2018 Document Reviewed: 05/13/2017 Well Patient Education [employer]. Follow Up Care 08/06/2021 08:10:07 With:pt will call once she decides how she would like to proceed Address:Unknown When: Unknown [facility] Evaluation + Plan note Note Date & Type Note Facility Evaluation + Plan note Future Appointments Appointment Date:09/17/2021 08:30:00 AM Scheduled Provider: Location:[facility] Appointment Type:URO Nurse Visit [facility] Hospital course Narrative Note Date & Type Note Facility Hospital course Narrative No data available for this section [facility] Progress note Note Date & Type Note Facility Progress note No data available for this section [facility] Summary Purpose Family History No Family History Records FoundNo Family History Records FoundNo Family History Records Found Advance Directives No Advanced Directives Records FoundNo Advanced Directives Records FoundNo Advanced Directives Records Found Additional Source Comments Care Team (unrecognized sect ion and content) Personnel Name: Monika Matthews MD Address: [address] [place] [address] [place] [address]- INFORMATION SOURCE (unrecogn ized section and content) DATE CREATED AUTHOR 09/18/2021 [facility] DATE CREATED AUTHOR AUTHOR'S ORGANIZ ATION 03/02/2022 [facility] DATE CREATED AUTHOR AUTHOR'S ORGANIZ ATION 01/15/2023 [facility] FOR RECORDS PERTAINING TO PATIENTS WHO ARE [...] BE BASED ON THE PRIMARY CLINICAL RECORDS. [facility]. provides no warranty or guarantee of the accuracy or completeness of information in this document.
[2023-04-16] MEDS: KETOROLAC TROMETHAMINE 60 MG/2 ML VIAL IM (12:06)
[2023-04-16 12:09] LABS: Influenza Virus A Antigen Negative; Influenza Virus B Antigen Negative; Internal Control Within Normal Limits; SARS-CoV-2 Ag NEGATIVE (NEGATIVE)
--- NOTE | 2023-04-16 12:39 | ED.EXTPRO1 ---
Documented by User: Hannah Winterey 04/16/23 12:45 HPI - Extremity Problem General Chief complaint: Extremity Problem, Nontraumatic Stated complaint: HIP PAIN/COUGH Time Seen by Provider: 04/16/23 11:48 Source: patient Mode of arrival: walk-in Limitations: no limitations History of Present Illness HPI Narrative: 52-year-old female presents to the emergency room chief complaint of 2-week history of cough congestion. She said he with felt worse approximate 2 weeks ago with upper respiratory infection and cough. She states she was feeling better and then in the last week her cough returned. She denies any fevers. She does not appear toxic. She states she also came to the emergency room because she has had increased right hip sciatic pain. States the pain radiates on the right lower extremity. She does have a history of left hip pain she has had no new injury or trauma. She sees pain management for her left hip. She says the right pain is new. She has had no new injuries or falls. She denies numbness ting or loss of bowel or bladder function. Patient is feeling better after being here in the emergency room Related Data Home Medications Medication Instructions Recorded Confirmed ibuprofen 200 mg capsule 800 mg PO Q12H PRN pain 11/02/22 01/11/23 loratadine-pseudoephedrine ER 10 1 tab PO DAILY 11/02/22 01/11/23 mg-240 mg tablet,extended [id number] (Claritin-D 24 Hour) diazepam 10 mg tablet mg 01/11/23 Previous Rx's Medication Instructions Recorded tizanidine 4 mg tablet 4 mg PO BID PRN muscle spasticity 12/02/22 #45 tabs benzonatate 100 mg capsule 100 mg PO TID PRN cough #14 caps 04/16/23 prednisone 20 mg tablet 40 mg (2 x 20 mg) PO BID 5 days 04/16/23 #20 tabs Allergies Allergy/AdvReac Type Severity Reaction Status Date / Time No Known Drug Allergies Allergy Verified 01/11/23 08:48 Review of Systems ROS Narrative All Systems are negative except as noted/marked. [facility] Low back ache ?M54.50 - Low back pain, unspecified (ICD-10) Obesity ?E66.9 - Obesity, unspecified (ICD-10) Surgical History H/O tooth extraction ?K08.409 - Partial loss of teeth, unspecified cause, unspecified class (ICD-10) H/O: hysterectomy ?Z90.710 - Acquired absence of both cervix and uterus (ICD-10) Social History Smoking status: Never smoker Exam Narrative Exam Narrative: All Systems are negative except as noted/marked.All systems reviewed and otherwise negative Nurses note and vital signs reviewed and patient is not hypoxic. General: The patient appears well and in no apparent distress. Patient is resting comfortably on cart. Skin: Warm, dry, no pallor noted. There is no rash noted. Head: Normocephalic, atraumatic Eye: Normal conjunctiva, no drainage, EOMI. PERRL Ears, Nose, Mouth, and Throat: oral mucosa is moist. Nares patent. Mouth without vesicles. Ear canals patent. Tm's without Erythema Respiratory: Dry nonproductive cough, Patient is in no distress, no accessory muscle use, lungs are clear to auscultation, no wheezing, rales or rhonchi Back: non-tender, no CVA tenderness bilaterally to percussion. GI: Normal bowel sounds, no tenderness to palpation, no masses appreciated. No rebound, guarding, or rigidity noted. Musculoskeletal: right hip and buttock tenderness with range of motion and sitting, denies numbness or tingling she has full range of motion. Remainder of extremities are unremarkable Neurological: A&O x4, normal speech Psychiatric: Cooperative Constitutional Vital Signs, click to edit/add: Last Vital Signs Temp 97.6 F 04/16/23 11:02 Pulse 112 H 04/16/23 11:02 Resp 18 04/16/23 11:02 BP 97/72 04/16/23 11:02 Pulse Ox 98 04/16/23 11:02 O2 Del Method Room Air 04/16/23 11:02 Course Vital Signs Vital signs: Vital Signs Temperature 97.6 F 04/16/23 11:02 Pulse Rate 112 H 04/16/23 11:02 Respiratory Rate 18 04/16/23 11:02 Blood Pressure 97/72 04/16/23 11:02 Pulse Oximetry 98 04/16/23 11:02 Oxygen Delivery Method Room Air 04/16/23 11:02 Temperature 97.6 F 04/16/23 11:02 Pulse Rate 112 H 04/16/23 11:02 Respiratory Rate 18 04/16/23 11:02 Blood Pressure 97/72 04/16/23 11:02 Pulse Oximetry 98 04/16/23 11:02 Oxygen Delivery Method Room Air 04/16/23 11:02 MDM - Extremity (Nontraumatic) Medical Records Attestation: I reviewed the patient's medical records. Medical records narrative: 52-year-old female presents to the emergency room chief complaint of 2-week history of cough congestion. She said he with felt worse approximate 2 weeks ago with upper respiratory infection and cough. She states she was feeling better and then in the last week her cough returned. She denies any fevers. She does not appear toxic. She states she also came to the emergency room because she has had increased right hip sciatic pain. States the pain radiates on the right lower extremity. She does have a history of left hip pain she has had no new injury or trauma. She sees pain management for her left hip. She says the right pain is new. She has had no new injuries or falls. She denies numbness ting or loss of bowel or bladder function. Patient is feeling better after being here in the emergency Room after being medicated with Toradol. She denies the need for a x-ray. Her lung sounds are clear throughout. Testing was done for influenza and COVID which were both negative. Due to patient's chronic history of back issues and sciatica, She will be discharged home with short course of steroid and she also requested Segun Cook. Patient will follow-up with primary care physician. She states she had scheduled her previous pain management appointment but had canceled it because she felt better she will call back and reach out to them on Wednesday. Lab Data Labs: Lab Results 04/16/23 Range/Units 11:38 Influenza Type A Ag Negative Influenza Type B Ag Negative SARS-CoV-2 Ag (CV2AG) Negative (NEGATIVE) Discharge Plan Discharge Chief Complaint: Extremity Problem, Nontraumatic Clinical Impression: Sciatica, URI (upper respiratory infection) Patient Disposition: Home, Self-Care Time of Disposition Decision: 12:35 Condition: Good Prescriptions / Home Meds: New benzonatate 100 mg capsule 100 mg PO TID PRN (Reason: cough) Qty: 14 0RF prednisone 20 mg tablet 40 mg PO BID 5 Days Qty: 20 0RF No Action ibuprofen 200 mg capsule 800 mg PO Q12H PRN (Reason: pain) Claritin-D 24 Hour 10-240 mg tablet extended release 24 hr 1 tab PO DAILY tizanidine 4 mg tablet 4 mg PO BID PRN (Reason: muscle spasticity) Qty: 45 0RF Rx Instructions: may take 1-2 tabs twice per day as needed diazepam 10 mg tablet Instructions: Sciatica (ED), Upper Respiratory Infection (ED), Lower Back Exercises (ED) Referrals: Romero Dykes MD [Primary Care Provider] - 1 week Discharge Date/Time: 04/16/23 12:52 Stand Alone Forms: Portal Instructions Documented by User: Mumtaz Dean MD 04/16/23 20:37 HPI - Extremity Problem General Chief complaint: Extremity Problem, Nontraumatic Stated complaint: HIP PAIN/COUGH Time Seen by Provider: 04/16/23 11:48 Related Data Home Medications Medication Instructions Recorded Confirmed ibuprofen 200 mg capsule 800 mg PO Q12H PRN pain 11/02/22 01/11/23 loratadine-pseudoephedrine ER 10 1 tab PO DAILY 11/02/22 01/11/23 mg-240 mg tablet,extended [id number] (Claritin-D 24 Hour) diazepam 10 mg tablet mg 01/11/23 Previous Rx's Medication Instructions Recorded tizanidine 4 mg tablet 4 mg PO BID PRN muscle spasticity 12/02/22 #45 tabs benzonatate 100 mg capsule 100 mg PO TID PRN cough #14 caps 04/16/23 prednisone 20 mg tablet 40 mg (2 x 20 mg) PO BID 5 days 04/16/23 #20 tabs Allergies Allergy/AdvReac Type Severity Reaction Status Date / Time No Known Drug Allergies Allergy Verified 01/11/23 08:48 [facility] Medical History Low back ache ?M54.50 - Low back pain, unspecified (ICD-10) Obesity ?E66.9 - Obesity, unspecified (ICD-10) Surgical History H/O tooth extraction ?K08.409 - Partial loss of teeth, unspecified cause, unspecified class (ICD-10) H/O: hysterectomy ?Z90.710 - Acquired absence of both cervix and uterus (ICD-10) Social History Smoking status: Never smoker Exam Constitutional Vital Signs, click to edit/add: Last Vital Signs Temp 97.6 F 04/16/23 11:02 Pulse 112 H 04/16/23 11:02 Resp 18 04/16/23 11:02 BP 97/72 04/16/23 11:02 Pulse Ox 98 04/16/23 11:02 O2 Del Method Room Air 04/16/23 11:02 Course Vital Signs Vital signs: Vital Signs Temperature 97.6 F 04/16/23 11:02 Pulse Rate 112 H 04/16/23 11:02 Respiratory Rate 18 04/16/23 11:02 Blood Pressure 97/72 04/16/23 11:02 Pulse Oximetry 98 04/16/23 11:02 Oxygen Delivery Method Room Air 04/16/23 11:02 Temperature 97.6 F 04/16/23 11:02 Pulse Rate 112 H 04/16/23 11:02 Respiratory Rate 18 04/16/23 11:02 Blood Pressure 97/72 04/16/23 11:02 Pulse Oximetry 98 04/16/23 11:02 Oxygen Delivery Method Room Air 04/16/23 11:02 MDM - Extremity (Nontraumatic) Medical Records Medical records narrative: 52-year-old female presents to the emergency room chief complaint of 2-week history of cough congestion. She said he with felt worse approximate 2 weeks ago with upper respiratory infection and cough. She states she was feeling better and then in the last week her cough returned. She denies any fevers. She does not appear toxic. She states she also came to the emergency room because she has had increased right hip sciatic pain. States the pain radiates on the right lower extremity. She does have a history of left hip pain she has had no new injury or trauma. She sees pain management for her left hip. She says the right pain is new. She has had no new injuries or falls. She denies numbness ting or loss of bowel or bladder function. Patient is feeling better after being here in the emergency Room after being medicated with Toradol. She denies the need for a x-ray. Her lung sounds are clear throughout. Testing was done for influenza and COVID which were both negative. Due to patient's chronic history of back issues and sciatica, She will be discharged home with short course of steroid and she also requested Tessalon Perles. Patient will follow-up with primary care physician. She states she had scheduled her previous pain management appointment but had canceled it because she felt better she will call back and reach out to them on Wednesday. I, Dr Dean, have reviewed the above progress note and course of action in the ER; agree with the above. I have gone over history and physical, and discussed disposition and treatment plan with the patient. Lab Data Labs: Lab Results 04/16/23 Range/Units 11:38 Influenza Type A Ag Negative Influenza Type B Ag Negative SARS-CoV-2 Ag (CV2AG) Negative (NEGATIVE) Discharge Plan Discharge Chief Complaint: Extremity Problem, Nontraumatic Clinical Impression: Sciatica, URI (upper respiratory infection) Patient Disposition: Home, Self-Care Time of Disposition Decision: 12:35 Condition: Good Prescriptions / Home Meds: New benzonatate 100 mg capsule 100 mg PO TID PRN (Reason: cough) Qty: 14 0RF prednisone 20 mg tablet 40 mg PO BID 5 Days Qty: 20 0RF No Action ibuprofen 200 mg capsule 800 mg PO Q12H PRN (Reason: pain) Claritin-D 24 Hour 10-240 mg tablet extended release 24 hr 1 tab PO DAILY tizanidine 4 mg tablet 4 mg PO BID PRN (Reason: muscle spasticity) Qty: 45 0RF Rx Instructions: may take 1-2 tabs twice per day as needed diazepam 10 mg tablet Instructions: Sciatica (ED), Upper Respiratory Infection (ED), Lower Back Exercises (ED) Referrals: Romero Dykes MD [Primary Care Provider] - 1 week Discharge Date/Time: 04/16/23 12:52 Stand Alone Forms: Portal Instructions
== END 2023-04-16 12:52 | disposition home or self-care (01) ==
PROVIDERS: Emergency Provider Emergency Medicine; PCP Family Medicine
DX: J06.9 Acute upper respiratory infection, unspecified (principal); M54.31 Sciatica, right side; E66.9 Obesity, unspecified; Z68.37 Body mass index [BMI] 37.0-37.9, adult; Z79.899 Other long term (current) drug therapy; Z90.710 Acquired absence of both cervix and uterus
CPT/HCPCS: 87804; 87811; 96372; 99284

== ENCOUNTER 2023-04-19 13:21 | Outpatient (OUT) | payer BC, SELFPAY ==
--- OUTSIDE RECORDS SUMMARY | 2023-04-19 13:37 | XMS_ITS | CCD ---
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 Performed By: #### C VDTB ####[facility] [id number] [address]Dr. Dioni Mayorga INFLUENZA A AND B AGon 03-02 [facility] SEE BELOW Normal [facility] Comment on above: Result Comment: Nega tive for Flu A protein angiten. Infection due to Flu A cannot be ruled out. Flu A angiten in the sample may be below the detection limit of the test. Performed By: #### I NFLUAB #### [facility] [address] [place] [address] Dr. Dioni Mayorga [facility] SEE BELOW Normal [facility] Comment on above: Result Comment: Nega tive for Flu B protein antigen. Infection due to Flu B cannot be ruled out. Flu B antigen in the sample may be below the detection limit of the test. Performed By: #### I NFLUAB #### [facility] [address] [address] [address] Dioni Mayorga INFLUENZA A AG Negative Normal NEGATIVE SEE COMMENT [facility] Comment on above: Performed By: #### I NFLUAB #### [facility] [address] [address] [address] Dioni Mayorga INFLUENZA B AG Negative Normal NEGATIVE SEE COMMENT [facility] Comment on above: Performed By: #### I NFLUAB #### [facility] [address] [place] [address] Dr. Dioni Mayorga ASYMPTOMATIC COVID-19 ANTIGE Non 12-15-2021 EUA Statement SEE BELOW Normal [facility] Comment on above: Result Comment: [...] sooner. Performed By: #### C VDAGA #### [facility] [address] [place] [address] Dr. Dioni Mayorga SARS-CoV-2 (COVID-19) RNA YAMILET+probe Ql (Unsp spec) Negative Normal NEGATIVE [facility] Comment on above: Result Comment: Nega tive results are presumptive. They do not preclude infection and should not be used as the sole basis for treatment decisions. Additional confirmatory testing by a molecular method should be considered. Performed By: #### C VDAGA #### [facility] [address] [place] [address] Dr. Dioni Mayorga Covid-19 PCR ([facility])on 11-16 SARS-CoV-2 (COVID-19) RNA YAMILET+probe Ql (Unsp spec) Detected Critically abnormal NOT DETECTED [facility] Comment on above: Result Comment: This test is not yet approved or cleared by the [place] FDA. When there are no FDA-approved or cleared tests available, and other criteria are met, FDA can make tests available under an emergency access mechanism called an Emergency Use Authorization (EUA). The EUA for this test is supported by the [place] of Health and Human Service's declaration that [...] be used). Performed By: #### C VDTB ####[facility] [id number] [place], [place] [address]Wh. Dioni Mayorga MG MAMM SCREEN 3D DUSTIN CADon 09-17-2021 MG MAMM SCREEN 3D DUSTIN CAD Patient: BARBARA BACA Exam Date: 09/17/2021 : 1970 Gender:F Ordering : DR MONIKA MATTHEWS . Admission #: [id number] Family : Order #: [id number] CLICK HERE TO VIEW EXAM RADIOLOGY REPORT PROCEDURE: MAMMOGRAM SCREENING 3D BILATERAL CAD COMPARISON: MG MAMM SCREEN 3D DUSTIN CAD, 05/08/2020. MAMMO POST BIOPSY RIGHT, 01/04/2018. INDICATIONS: Screening mammography Calculator Name NCI Breast Cancer Risk Assessment Tool 5 Year Breast Cancer Risk 1.00% Lifetime Breast Cancer Risk 9.60% Personal Breast Cancer No Personal Ovarian Cancer No Treatments None Family Cancers None LOCATION: [facility] BREAST COMPOSITION: Scattered areas fibroglandular density. FINDINGS: [...] Rodarte M.D. on 09/17/2021 at 13:13 Normal [facility] Formson 09-04-2021 Forms [id number] #[id number]:127 Normal [facility] Patient Educationon 09-05-19 22 Patient Education Obstetrics [...] Take ove (more content not included)... Normal [facility] Physician Referralon 022 Physician Referral [id number] 0#1.00CD:127 Normal [facility] Office/Clinic Noteon 09-04-2021 Urology Office/Clinic Note [...] had hysterectomy about 10 yrs ago. 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 [...] E&M of New Patient Moderate 45-59 Min [id number] Follow-up With When Contact Information pt will [...] - Not Given Postpone due to refusal [facility] Comment on above: Result Comment: Elec tronically Signed By: MICHAEL NUGENT PA-C\.br\Date and Time Signed: 09/04/21 09:42 EDT Ambulatory Visit Summaryon 0 09-03-2021 Ambulatory Visit Summary BARBARA BACA :1970 Visit Date:09/03/2021 Ambulatory Visit Instructions Your Diagnosis Stress incontinence Tests Performed Urnls Dip Stick Auto w/o Microscopy POC 07714 Your Care Team Attending Physician - MICHAEL [...] Urnls Dip Stick Auto w/o Microscopy POC 19294 (09/03/2021) Bilirubin Urine Dipstick - Negative Blood Urine Dipstick - Trace-intact Glucose Urine Dipstick - Negative Ketones Urine Dipstick - Negative Leukocytes Urine Dipstick - Negative Nitrite Urine Dipstick - Negative Protein Urine Dipstick - Negative Specific [place] Urine Dipstick - 1.020 Urine Appearance Urine Dipstick - Clear Urine Color Urine Dipstick - Yellow Urobilinogen Urine Dipstick - Normal 0.2-1 EU/dl pH Urine Dipstick - 5 Medications and Immunizations Administered Not Given SARS-CoV-2 mRNA (tozinameran 5y-11y) vac, Postpone due to refusal Allergies No Known Allergies No Known Medication Allergies Normal [facility] CBC AUTO DIFFon 08-02-2021 BASO # 0.0 103/ul Normal 0.0-0.1 [facility] Comment on above: Performed By: #### C BC #### [facility] [address] [address] [address] Dioni Mayorga Basophils/100 WBC (Bld) 0.4 % Normal 0.2-2.0 [facility] Comment on above: Performed By: #### C BC #### [facility] [address] [place] [address] Dr. Dioni Mayorga EO # 0.1 103/ul Normal 0.0-0.7 [facility] Comment on above: Performed By: #### C BC #### [facility] [address] [place] [address] Dr. Dioni Mayorga Eosinophils/100 WBC (Bld) 1.0 % Normal 0.9-7.0 [facility] Comment on above: Performed By: #### C BC #### [facility] [address] [address] [address] Dioni Mayorga Erythrocyte distribution width (RBC) [Ratio] 13.4 % Normal 11.0-15.0 [facility] Comment on above: Performed By: #### C BC #### [facility] [address] [place] [address] Dr. Dioni Mayorga Hematocrit (Bld) [Volume fraction] 45.2 % Normal 36.0-48.0 [facility] Comment on above: Performed By: #### C BC #### [facility] [address] [place] [address] Dr. Dioni Mayorga Hemoglobin (Bld) [Mass/Vol] 14.5 g/dL Normal 12.0-16.0 [facility] Comment on above: Performed By: #### C BC #### [facility] [address] [place] [address] Dr. Dioni Mayorga IG # 0.02 10e3/ul Normal 0.00-0.03 [facility] Comment on above: Performed By: #### C BC #### [facility] [address] [place] [address] Dr. Dioni Mayorga IG % 0.3 % Normal 0.0-0.5 [facility] Comment on above: Performed By: #### C BC #### [facility] [address] [place] [address] Dr. Dioni Mayorga LYMPH # 2.7 103/ul Normal 1.2-3.8 [facility] Comment on above: Performed By: #### C BC #### [facility] [address] [place] [address] Dr. Dioni Mayorga Lymphocytes/100 WBC (Bld) 38.7 % Normal 20.5-60.0 [facility] Comment on above: Performed By: #### C BC #### [facility] [address] [place] [address] Dr. Dioni Mayorga MANUAL DIFF REQ NO Normal [facility] Comment on above: Performed By: #### C BC #### [facility] [address] [place] [address] Dr. Dioni Mayorga MCH (RBC) [Entitic mass] 28.4 pg Normal 26.7-34.0 [facility] Comment on above: Performed By: #### C BC #### [facility] [address] [place] [address] Dr. Dioni Mayorga MCHC (RBC) [Mass/Vol] 32.1 g/dL Normal 29.9-35.2 [facility] Comment on above: Performed By: #### C BC #### [facility] [address] [place] [address] Dr. Dioni Mayorga MCV (RBC) [Entitic vol] 88.5 fL Normal 81.0-99.0 [facility] Comment on above: Performed By: #### C BC #### [facility] [address] [place] [address] Dr. Dioni Mayorga MONO # 0.4 103/ul Normal 0.3-0.8 [facility] Comment on above: Performed By: #### C BC #### [facility] [address] [place] [address] Dr. Dioni Mayorga Monocytes/100 WBC (Bld) 6.2 % Normal 1.7-12.0 [facility] Comment on above: Performed By: #### C BC #### [facility] [address] [place] [address] Dr. Dioni Mayorga NEUT # 3.7 103/ul Normal 1.4-6.5 [facility] Comment on above: Performed By: #### C BC #### [facility] [address] [place] [address] Dr. Dioni Mayorga Neutrophils/100 WBC (Bld) 53.4 % Normal 43.0-75.0 [facility] Comment on above: Performed By: #### C BC #### [facility] [address] [place] [address] Dr. Dioni Mayorga Platelet mean volume (Bld) [Entitic vol] 10.4 fL Normal 9.5-13.5 [facility] Comment on above: Performed By: #### C BC #### [facility] [address] [place] [address] Dr. Dioni Mayorga PLT 340 103/ul Normal 150-450 [facility] Comment on above: Performed By: #### C BC #### [facility] [address] [place] [address] Dr. Dioni Mayorga RBC 5.11 106/ul Normal 4.20-5.40 [facility] Comment on above: Performed By: #### C BC #### [facility] [address] [place] [address] Dr. Dioni Mayorga WBC 6.9 103/ul Normal 4.0-11.0 [facility] Comment on above: Performed By: #### C BC #### [facility] [address] [place] [address] Dr. Dioni Mayorga FREE T3on 08-02-2021 FREE T3 1.49 pg/mlL Critically low 2.18-3.98 [facility] Comment on above: Performed By: #### F T3, LIPID, CMP, T7, TSH #### [facility] [address] [address] [address] Dioni Mayorga FREE THYROXINE INDEX T7on FTI 2.77 Normal 1.30-4.50 [facility] Comment on above: Performed By: #### F T3, LIPID, CMP, T7, TSH #### [facility] [address] [address] [address] Dioni Mayorga T3U 36.0 % Normal 30.0-39.0 [facility] Comment on above: Performed By: #### F T3, LIPID, CMP, T7, TSH #### [facility] [address] [address] [address] Dioni Mayorga T4 [Mass/Vol] 7.70 ug/dL Normal 4.80-13.90 [facility] [place] Comment on above: Performed By: #### F T3, LIPID, CMP, T7, TSH #### [facility] [address] [address] [address] Dioni Mayorga GLYCOHEMOGLOBIN A1Con 2021 ADA RECOMMENDATION SEE BELOW Normal [facility] Comment on above: Result Comment: ADA RECOMMENDED LIMIT 4.0 - 6.0 ADA THERAPEUTIC TARGET < 7.0 ACTION SUGGESTED > 7.0 Performed By: #### A 1C #### [facility] [address] [address] [address] Dioni Mayorga Glucose [Mass/Vol] 111 mg/dL Normal [facility] Comment on above: Performed By: #### A 1C #### [facility] [address] [address] [address] Dioni Mayorga HbA1c (Bld) [Mass fraction] 5.5 % Normal 4.5-6.2 [facility] Comment on above: Performed By: #### A 1C #### [facility] [address] [address] [address] Dioni Mayorga LIPID PROFILEon 08-02-2021 CHOL-HDL RATIO NORM SEE BELOW Normal [facility] Comment on above: Result Comment: 3.3 - 4.4 LOW RISK 4.4 - 7.1 AVERAGE RISK 7.1 - 11.0 MODERATE RISK >11.0 HIGH RISK Performed By: #### F T3, LIPID, CMP, T7, TSH #### [facility] [address] [address] [address] Dioni Mayorga Cholesterol [Mass/Vol] 211 mg/dL Critically high <=200 [facility] Comment on above: Performed By: #### F T3, LIPID, CMP, T7, TSH #### [facility] [address] [address] [address] Dioni Mayorga Cholesterol in HDL [Mass/Vol] 48 mg/dL Normal 40-60 [facility] Comment on above: Performed By: #### F T3, LIPID, CMP, T7, TSH #### [facility] [address] [address] [address] Dioni Mayorga Cholesterol in LDL [Mass/Vol] 148.6 mg/dL Normal [facility] Comment on above: Performed By: #### F T3, LIPID, CMP, T7, TSH #### [facility] [address] [address] [address] Dioni Mayorga Cholesterol.total/Ch olesterol in HDL [Mass ratio] 4.4 {ratio} Normal [facility] Comment on above: Performed By: #### F T3, LIPID, CMP, T7, TSH #### [facility] [address] [address] [address] Dioni Mayorga HDL NORMAL > or = 60 mg/dl - LOW CARDIOVASCULAR RISK <40 mg/dl - HIGH CARDIOVASCULAR RISK Normal [facility] Comment on above: Performed By: #### F T3, LIPID, CMP, T7, TSH #### [facility] [address] [place] [address] Dr. Dioni Mayorga LDL CALC NORMAL SEE BELOW Normal [facility] Comment on above: Result Comment: <100 mg/dl OPTIMAL 100 - 129 mg/dl NEAR OR ABOVE OPTIMAL 130 - 159 mg/dl BORDERLINE HIGH 160 - 189 mg/dl HIGH >190 mg/dl VERY HIGH Performed By: #### F T3, LIPID, CMP, T7, TSH #### [facility] [address] [address] [address] Dioni Mayorga Triglyceride [Mass/Vol] 72 mg/dL Normal <=150 [facility] Comment on above: Performed By: #### F T3, LIPID, CMP, T7, TSH #### [facility] [address] [address] [address] Dioni Mayorga VLDL CALC 14.4 mg/dL Normal [facility] Comment on above: Performed By: #### F T3, LIPID, CMP, T7, TSH #### [facility] [address] [address] [address] Dioni Mayorga PROF 14(COMP METB)on 022 Albumin [Mass/Vol] 3.5 g/dL Normal 3.4-5.0 [facility] Comment on above: Performed By: #### F T3, LIPID, CMP, T7, TSH #### [facility] [address] [address] [address] Dioni Mayorga Albumin/Globulin [Mass ratio] 1.0 {ratio} Normal [facility] Comment on above: Performed By: #### F T3, LIPID, CMP, T7, TSH #### [facility] [address] [place] [address] Dr. Dioni Mayorga ALP [Catalytic activity/Vol] 62 U/L Normal 46-116 [facility] Comment on above: Performed By: #### F T3, LIPID, CMP, T7, TSH #### [facility] [address] [address] [address] Dioni Mayorga ALT [Catalytic activity/Vol] 20 U/L Normal 14-59 [facility] Comment on above: Performed By: #### F T3, LIPID, CMP, T7, TSH #### [facility] [address] [address] [address] Dioni Mayorga Anion gap [Moles/Vol] 14.0 mmol/L Normal [facility] Comment on above: Performed By: #### F T3, LIPID, CMP, T7, TSH #### [facility] [address] [address] [address] Dioni Mayorga AST [Catalytic activity/Vol] 12 U/L Critically low 15-37 [facility] Comment on above: Performed By: #### F T3, LIPID, CMP, T7, TSH #### [facility] [address] [address] [address] Dioni Mayorga Bilirubin [Mass/Vol] 0.4 mg/dL Normal 0.2-1.0 [facility] Comment on above: Performed By: #### F T3, LIPID, CMP, T7, TSH #### [facility] [address] [address] [address] Dioni Mayorga Calcium [Mass/Vol] 8.7 mg/dL Normal 8.5-10.1 [facility] Comment on above: Performed By: #### F T3, LIPID, CMP, T7, TSH #### [facility] [address] [place] [address] Dr. Dioni Mayorga Chloride [Moles/Vol] 105 mmol/L Normal 98-107 [facility] Comment on above: Performed By: #### F T3, LIPID, CMP, T7, TSH #### [facility] [address] [address] [address] Dioni Mayorga CO2 [Moles/Vol] 26.4 mmol/L Normal 21.0-32.0 [facility] Comment on above: Performed By: #### F T3, LIPID, CMP, T7, TSH #### [facility] [address] [address] [address] Dioni Mayorga Creatinine [Mass/Vol] 0.83 mg/dL Normal 0.55-1.02 [facility] Comment on above: Performed By: #### F T3, LIPID, CMP, T7, TSH #### [facility] [address] [place] [address] Dr. Dioni Mayorga EGFR-AF BRAZILIAN >60 Normal >=60 [facility] Comment on above: Performed By: #### F T3, LIPID, CMP, T7, TSH #### [facility] [address] [place] [address] Dr. Dioni Mayorga EGFR-NON AF BRAZILIAN >60 Normal >=60 [facility] Comment on above: Performed By: #### F T3, LIPID, CMP, T7, TSH #### [facility] [address] [address] [address] Dioni Mayorga Globulin (S) [Mass/Vol] 3.5 g/dL Normal [facility] Comment on above: Performed By: #### F T3, LIPID, CMP, T7, TSH #### [facility] [address] [address] [address] Dioni Mayorga Glucose [Mass/Vol] 78 mg/dL Normal 74-106 [facility] Comment on above: Performed By: #### F T3, LIPID, CMP, T7, TSH #### [facility] [address] [place] [address] Dr. Dioni Mayorga Potassium [Moles/Vol] 4.4 mmol/L Normal 3.5-5.1 [facility] Comment on above: Performed By: #### F T3, LIPID, CMP, T7, TSH #### [facility] [address] [place] [address] Dr. Dioni Mayorga Protein [Mass/Vol] 7.0 g/dL Normal 6.4-8.2 [facility] Comment on above: Performed By: #### F T3, LIPID, CMP, T7, TSH #### [facility] [address] [place] [address] Dr. Dioni Mayorga Sodium [Moles/Vol] 141 mmol/L Normal 136-145 [facility] Comment on above: Performed By: #### F T3, LIPID, CMP, T7, TSH #### [facility] [address] [place] [address] Dr. Dioni Mayorga Urea nitrogen [Mass/Vol] 16.0 mg/dL Normal 7.0-18.0 [facility] Comment on above: Performed By: #### F T3, LIPID, CMP, T7, TSH #### [facility] [address] [place] [address] Dr. Dioni Mayorga Urea nitrogen/Creatinine [Mass ratio] 19.3 mg/mg Normal [facility] Comment on above: Performed By: #### F T3, LIPID, CMP, T7, TSH #### [facility] [address] [place], [place] [address] Dr. Dioni Mayorga TSHon 08-02-2021 TSH 1.339 uIU/mL Normal 0.358-3.740 [facility] [place] Comment on above: Performed By: #### F T3, LIPID, CMP, T7, TSH #### [facility] [address] [place], [place] [address] Dr. Dioni Mayorga Vital Signs Date Time Vital Sign Value Performing Clinician Faci lity 09-03-2021 08:51-0400 Blood Pressure Location MICHAEL NUGENT [facility] 09-03-2021 08:51-0400 Diastolic blood pressure 96 mm[Hg] MICHAEL NUGENT [facility] 09-03-2021 08:51-0400 Heart rate 106 /min MICHAEL NUGENT [facility] 09-03-2021 08:51-0400 Systolic blood pressure 138 mm[Hg] MICHAEL NUGENT [facility] Encounters Encounter Date Encounter Type Care Provider Facility Start: 01-11-2023 End: 01-12-2023 ambulatory Harish Cannon MD Facility:[facility] Start: 12-07-2022 End: 12-08-2022 ambulatory Harish Cannon MD Facility:[facility] Start: 11-23-2022 End: 11-24-2022 ambulatory Harish Cannon MD Facility:[facility] Start: 11-02-2022 End: 11-03-2022 ambulatory Harish Cannon MD Facility:[facility] Start: 03-02-2022 End: 03-02-2022 ambulatory SALVADOR GROSS Facility:[facility] Start: 12-15-2021 End: 12-15-2021 ambulatory SALVADOR GROSS Facility:[facility] Start: 12-09-2021 End: 12-09-2021 ambulatory SAVLADOR GROSS Facility:[facility] Start: 09-17-2021 End: 09-18-[address] MONIKA MATTHEWS Facility:[facility] Start: 09-03-[address] MONIKA MATTHEWS Facility :[facility] Start: 09-03-2021 End: 09-03-2021 Patient encounter procedure MICHAEL NUGENT [facility] Start: 08-05-2021 Encounter for genera l adult medical examination without abnormal findings DR MONIKA MATTHEWS [facility] Start: 08-02-2021 End: 08-03-[address] MONIKA MATTHEWS Facility:[facility] Start: 08-02-2021 End: 08-03-2021 Encounter for general adult medical examination without abnormal findings DR MONIKA MATTHEWS Facility:[facility] Procedures Date Procedure Procedure Detail Performing Clinician Hysterectomy MICHAEL NUGENT Immunizations Immunization Date Immunization Notes Care Provider Fa cility NEGATED: Highlighted row has not occurred!09-03-2021 SARS-CoV-2 mRNA (tozinameran 5y-11y) vaccine MICHAEL NUGENT [facility] Payers Date Payer Category Payer Unknown [id number] 2022 Unknown 2019 Unknown [id number] 1970 Unknown [id number] 2.16.84 [id number] 1970 Unknown [id number] 2.16.84 [id number] 1970 Unknown [id number] 2.16.84 [id number] 1970 Unknown [id number] 2.16.84 [id number] 1970 Unknown [id number] 2.16.84 [id number] 1970 Unknown [id number] 2.16.84 [id number] 1970 Unknown [id number] 2.16. [id number] 1970 Unknown [id number] 2.16. [id number] 1970 Unknown [id number] 2.16. [id number] 1970 Unknown [id number] 2.16. [id number] Social History Date Type Detail Facility Start: 09-03-2021 Tobacco smoking status Never s moked tobacco (finding) [facility] Tobacco smoking status Never [facility] Sex Assigned At Female [facility] [employer] Functional Status Date Assessment Result Facility 09-03-2021 Functional Status N/A [facility] Discharge instructions 09-03-2021 Note Date & [...] (electrical nerve stimulation). For women, using a certified medical asst to prevent urine leaks. This is a [...] right after experiencing incontinence. General instructions Take othg-ukq-nzxylfr and prescription medicines only as told by [...] 03/11/2005 Document Revised: 02/11/2018 Document Reviewed: 05/13/2017 [employer] Patient Education [employer]. Follow Up Care 08/06/2021 08:10:07 With:pt will call once she decides how she would like to proceed Address:Unknown When: Unknown [facility] Evaluation + Plan note Note Date & Type Note Facility Evaluation + Plan note Future Appointments Appointment Date:09/17/2021 08:30:00 AM Scheduled Provider: Location:[facility] Appointment Type:URO Nurse Visit [facility] Hospital course Narrative Note Date & Type Note Facility Hospital course Narrative No data available for this section [facility] Progress note Note Date & Type Note Facility Progress note No data available for this section [facility] Summary Purpose Family History No Family History Records FoundNo Family History Records FoundNo Family History Records Found Advance Directives No Advanced Directives Records FoundNo Advanced Directives Records FoundNo Advanced Directives Records Found Additional Source Comments Care Team (unrecognized sect ion and content) Personnel Name: Monika Matthews MD Address: [address] [place] [address] [place] [address]- INFORMATION SOURCE (unrecogn ized section and content) DATE CREATED AUTHOR 09/18/2021 [facility] DATE CREATED AUTHOR AUTHOR'S ORGANIZ ATION 03/02/2022 [facility] DATE CREATED AUTHOR AUTHOR'S ORGANIZ ATION 01/15/2023 [facility] FOR RECORDS PERTAINING TO PATIENTS WHO ARE [...] BE BASED ON THE PRIMARY CLINICAL RECORDS. [facility] [employer] [facility] provides no warranty or guarantee of the accuracy or completeness of information in this document.
--- NOTE | 2023-04-19 14:16 | P.CN_ITS ---
Consult Note: HPI Data of Consult Patient: known to practice within the last 3 years Consult date: 04/19/23 Requesting Physician: Harish Cannon MD Primary Care Provider: Romero Dykes MD Consult Narrative Reason for consult: Right lower extremity pain Narrative: 52yof who presents for assessment. States she was doing well until several weeks ago when she contracted viral URI and had significant associated coughing. [place] sudden radiating pain down her right lower extremity, has never had this pain before. Continues to have significant pain down to right foot. Has continued in >6 weeks of provider directed home exercises, with minimal benefit. Utilizing prednisone, which has helped some, as well as diclofenac and tizanidine. Denies adverse med side effects. cc:: CC: Harish Cannon MD Review of Systems ROS Status of ROS 10 or more systems reviewed and unremark able except as noted in history and below [facility] Medical History Low back ache ?M54.50 - Low back pain, unspecified (ICD-10) Obesity ?E66.9 - Obesity, unspecified (ICD-10) Surgical History H/O tooth extraction ?K08.409 - Partial loss of teeth, unspecified cause, unspecified class (ICD- 10) H/O: hysterectomy ?Z90.710 - Acquired absence of both cervix and uterus (ICD-10) Social History Smoking status: Never smoker Meds Home Medications and Allergies Home Medications Medication Instructions Recorded Confirmed Type ibuprofen 200 mg capsule 800 mg PO Q12H PRN pain 11/02/22 01/11/23 History loratadine-pseudoephedrine ER 10 1 tab PO DAILY 11/02/22 01/11/23 History mg-240 mg tablet,extended qptddeq25iy (Claritin-D 24 Hour) tizanidine 4 mg tablet 4 mg PO BID PRN muscle spasticity 12/02/22 01/11/23 Rx #45 tabs diazepam 10 mg tablet mg 01/11/23 History benzonatate 100 mg capsule 100 mg PO TID PRN cough #14 caps 04/16/23 Rx prednisone 20 mg tablet 40 mg (2 x 20 mg) PO BID 5 days 04/16/23 Rx #20 tabs Allergies Allergy/AdvReac Type Severity Reaction Status Date / Time No Known Drug Allergies Allergy Verified 01/11/23 08:48 Exam Narrative Exam Narrative: Psych-alert and oriented x 3. Attentive and appropriate, constitutionally normal, displays normal mood and affect per situation. There are no obvious deficits in memory, reasoning, or intellect.? Skin-no obvious rashes, bruising, erythema noted to the patient's area of pain.? Extremities- extremities are warm with minimal edema and palpable pulses. Lumbar-tenderness to palpation noted in the lumbar spine and paraspinal musculature. Pain is not elicited with flexion, extension, and lateral rotation of the lumbar spine. Range of motion is not diminished with these motions. Facet loading maneuvers are negative.? Strength-noted to be unremarkable with the exception of decreased strength rated at 4 out of 5 in right quadriceps femoris, anterior tibialis. Sensory-no notable sensory deficits in the bilateral lower extremities to touch or pinprick in all dermatomal distributions with the exception to decreased sensation to the right L4, 5 dermatomal distribution Coordination remains intact.? Gait remains non-antalgic. Assessment and Plan Assessment and Plan (1) Lumbar radiculopathy: (2) Lumbar stenosis without neurogenic claudication: Plan 52yof who presents for assessment. Worsening right radicular LE pain. Given failure to respond to conservative measures, coupled with acute nature of problem and weakness into right lower extremity, would like her to undergo lumbar MRI without contrast for assessment. She is in agreement. Meds reviewed, no changes at this time. She will complete her steroid burst. Follow up after imaging.
== END 2023-04-19 13:22 | disposition home or self-care (01) ==
LOC: PM 13:21
PROVIDERS: PCP Family Medicine; Visit Provider Anesthesiology
DX: M54.16 Radiculopathy, lumbar region (principal); M48.062 Spinal stenosis, lumbar region with neurogenic claudication
CPT/HCPCS: G0463

== ENCOUNTER 2023-04-22 14:52 | Outpatient (OUT) | payer BC, SELFPAY ==
--- NOTE | 2023-04-22 14:55 | MR_ITS ---
[place] [id number] Patient Name: JONATHAN BACA MRN: [id number] date: 1970 Sex: F Assigned Patient Location: MRI Current Patient Location: MRI Accession/Order Number: [id number] Exam Date: 04/22/2023 15:00 Report Date: 04/24/2023 06:24 At the request of: IVAN BARAJAS Procedure: MR lumbar spine wo con EXAMINATION: MR lumbar spine wo con HISTORY: Lumbar Radiculopathy, Lumbar Stenosis ; right hip pain COMPARISON: MRI lumbar spine 09/17/2022 TECHNIQUE: A variety of imaging planes and parameters were utilized for visualization of suspected pathology. FINDINGS: For the purposes of numbering, sagittal T2 image # 8 extends from the T11 vertebral body superiorly to the S3 level inferiorly. PARASPINAL AREA: Normal with no visible mass. BONES: No fracture, pars defect, or osseous lesion. CORD/CAUDA EQUINA: Normal caliber, contour, and signal intensity. DISC LEVELS: 12-L1: No significant disc/facet abnormality, spinal stenosis, or foraminal stenosis. L1-L2: No significant disc/facet abnormality, spinal stenosis, or foraminal stenosis. L2-L3: Early degenerative disc disease is present without focal protrusion or neural impingement. L3-L4: Early degenerative disc disease is present without focal protrusion or neural impingement. L4-L5: Mild degenerative facet arthropathy bilaterally and mild disc desiccation without disc height reduction or significant bulging. L5-S1: Mild degenerative facet arthropathy and moderate disc height reduction with mild right paracentral disc bulging. No significant central canal or foraminal stenosis. MR/MR lumbar spine wo con IMPRESSION: 1. L5-S1 mild degenerative disc disease and slight right paracentral disc bulging. There is no appreciable neural impingement or significant central canal/foramen narrowing, however, the degree of disc bulging may change with patient movement. Electronically authenticated by: GUERDA NAYLOR Date: 04/24/2023 06:24
--- OUTSIDE RECORDS SUMMARY | 2023-04-22 15:03 | XMS_ITS | CCD ---
Author Name Unknown Address [address] [place] [address] Organization [facility] Care Team Providers Care Gambling Cashier Name Role Phone Monika Matthews Primary Care Physician [phone] CASSIE, DR FRANK Admitting Unavailable CASSIE, DR [...] Value Interpretation Reference Range [facility]15 SARS-CoV-2 (COVID-19) RNA YAMILET+probe Ql (Unsp spec) Not detected Normal NOT DETECTED [facility] Comment on above: Result Comment: When [...] for this test is supported by the [place] of Health and Human Service's declaration that [...] Performed By: #### C VDTB ####[facility] [id number] [address]Dr. Dioni Mayorga INFLUENZA A AND B AGon 03-02 [facility] SEE BELOW Normal [facility] Comment on above: Result Comment: Nega tive for Flu A protein angiten. Infection due to Flu A cannot be ruled out. Flu A angiten in the sample may be below the detection limit of the test. Performed By: #### I NFLUAB #### [facility] [address] [place] [address] Dr. Dioni Mayorg[facility] SEE BEL[facility] Normal [facility] Comment on above: Result Comment: Nega tive for Flu B protein antigen. Infection due to Flu B cannot be ruled out. Flu B antigen in the sample may be below the detection limit of the test. Performed By: #### I NFLUAB #### [facility] [address] [address] [address] Dioni Mayorga INFLUENZA A AG Negative Normal NEGATIVE SEE COMMENT [facility] Comment on above: Performed By: #### I NFLUAB #### [facility] [address] [address] [address] Dioni Mayorga INFLUENZA B AG Negative Normal NEGATIVE SEE COMMENT [facility] Comment on above: Performed By: #### I NFLUAB #### [facility] [address] [place] [address] Dr. Dioni Mayorga ASYMPTOMATIC COVID-19 ANTIGE Non 12-15-2021 EUA Statement SEE BELOW Normal [facility] Comment on above: Result Comment: This [...] By: #### C VDAGA #### [facility] [address] [place] [address] Dr. Dioni Mayorga SARS-CoV-2 (COVID-19) RNA YAMILET+probe Ql (Unsp spec) Negative Normal NEGATIVE [facility] Comment on above: Result Comment: Nega tive results are presumptive. They do not preclude infection and should not be used as the sole basis for treatment decisions. Additional confirmatory testing by a molecular method should be considered. Performed By: #### C VDAGA #### [facility] [address] [place] [address] Dr. Dioni Mayorga Covid-19 PCR ([facility])on 11-16 SARS-CoV-2 (COVID-19) RNA YAMILET+probe Ql (Unsp spec) Detected Critically abnormal NOT DETECTED [facility] Comment on above: Result Comment: This test is not yet approved or cleared by the [place] FDA. When there are no FDA-approved or cleared tests available, and other criteria are met, FDA can make tests available under an emergency access mechanism called an Emergency Use Authorization (EUA). The EUA for this test is supported by the [place] of Health and Human Service's declaration that [...] Performed By: #### C VDTB ####[facility] [id number] [place], [place] [address]Js. Dioni Mayorga MG MAMM SCREEN 3D DUSTIN CADon 09-17-2021 MG MAMM SCREEN 3D DUSTIN CAD Patient: BARBARA BACA Exam Date: 09/17/2021 : 1970 Gender:F Ordering : DR MONIKA MATTHEWS . Admission #: [id number] Family : Order #: [id number] CLICK HERE TO VIEW EXAM RADIOLOGY REPORT [...] Family Cancers None LOCATION: [facility] BREAST COMPOSITION: Scattered areas fibroglandular density. [...] Rodarte M.D. on 09/17/2021 at 13:13 Normal [facility] Formson 09-04-2021 Forms [id number] #[id number]:127 Normal [facility] Patient Educationon 09-05-19 22 Patient Education [...] Take ove (more content not included)... Normal [facility] Physician Referralon 022 Physician Referral [id number] 0#1.00CD:127 Normal [facility] Urology Office/Clinic Noteon 09-04-2021 Urology Office/Clinic [...] had hysterectomy about 10 yrs ago. 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 [...] E&M of New Patient Moderate 45-59 Min 08268 Follow-up With When Contact Information pt will [...] - Not Given Postpone due to refusal [facility] Comment on above: Result Comment: Elec tronically Signed By: MICHAEL NUGENT PA-C\.br\Date and Time Signed: 09/04/21 09:42 EDT Ambulatory Visit Summaryon 0 09-03-2021 Ambulatory Visit Summary BARBARA BACA :1970 Visit Date:09/03/2021 Ambulatory Visit Instructions Your Diagnosis Stress incontinence Tests Performed Urnls Dip Stick Auto w/o Microscopy POC 40754 Your Care Team Attending Physician - MICHAEL [...] Urnls Dip Stick Auto w/o Microscopy POC 43750 (09/03/2021) Bilirubin Urine Dipstick - Negative Blood Urine Dipstick - Trace-intact Glucose Urine Dipstick - Negative Ketones Urine Dipstick - Negative Leukocytes Urine Dipstick - Negative Nitrite Urine Dipstick - Negative Protein Urine Dipstick - Negative Specific [place] Urine Dipstick - 1.020 Urine Appearance Urine Dipstick - Clear Urine Color Urine Dipstick - Yellow Urobilinogen Urine Dipstick - Normal 0.2-1 EU/dl pH Urine Dipstick - 5 Medications and Immunizations Administered Not Given SARS-CoV-2 mRNA (tozinameran 5y-11y) vac, Postpone due to refusal Allergies No Known Allergies No Known Medication Allergies Normal [facility] CBC AUTO DIFFon 08-02-2021 BASO # 0.0 103/ul Normal 0.0-0.1 [facility] Comment on above: Performed By: #### C BC #### [facility] [address] [address] [address] Dioni Mayorga Basophils/100 WBC (Bld) 0.4 % Normal 0.2-2.0 [facility] Comment on above: Performed By: #### C BC #### [facility] [address] [place] [address] Dr. Dioni Mayorga EO # 0.1 103/ul Normal 0.0-0.7 [facility] Comment on above: Performed By: #### C BC #### [facility] [address] [place] [address] Dr. Dioni Mayorga Eosinophils/100 WBC (Bld) 1.0 % Normal 0.9-7.0 [facility] Comment on above: Performed By: #### C BC #### [facility] [address] [address] [address] Dioni Mayorga Erythrocyte distribution width (RBC) [Ratio] 13.4 % Normal 11.0-15.0 [facility] Comment on above: Performed By: #### C BC #### [facility] [address] [place] [address] Dr. Dioni Mayorga Hematocrit (Bld) [Volume fraction] 45.2 % Normal 36.0-48.0 [facility] Comment on above: Performed By: #### C BC #### [facility] [address] [place] [address] Dr. Dioni Mayorga Hemoglobin (Bld) [Mass/Vol] 14.5 g/dL Normal 12.0-16.0 [facility] Comment on above: Performed By: #### C BC #### [facility] [address] [place] [address] Dr. Dioni Mayorga IG # 0.02 10e3/ul Normal 0.00-0.03 [facility] Comment on above: Performed By: #### C BC #### [facility] [address] [place] [address] Dr. Dioni Mayorga IG % 0.3 % Normal 0.0-0.5 [facility] Comment on above: Performed By: #### C BC #### [facility] [address] [place] [address] Dr. Dioni Mayorga LYMPH # 2.7 103/ul Normal 1.2-3.8 [facility] Comment on above: Performed By: #### C BC #### [facility] [address] [place] [address] Dr. Dioni Mayorga Lymphocytes/100 WBC (Bld) 38.7 % Normal 20.5-60.0 [facility] Comment on above: Performed By: #### C BC #### [facility] [address] [place] [address] Dr. Dioni Mayorga MANUAL DIFF REQ NO Normal [facility] Comment on above: Performed By: #### C BC #### [facility] [address] [place] [address] Dr. Dioni Mayorga MCH (RBC) [Entitic mass] 28.4 pg Normal 26.7-34.0 [facility] Comment on above: Performed By: #### C BC #### [facility] [address] [place] [address] Dr. Dioni Mayorga MCHC (RBC) [Mass/Vol] 32.1 g/dL Normal 29.9-35.2 [facility] Comment on above: Performed By: #### C BC #### [facility] [address] [place] [address] Dr. Dioni Mayorga MCV (RBC) [Entitic vol] 88.5 fL Normal 81.0-99.0 [facility] Comment on above: Performed By: #### C BC #### [facility] [address] [place] [address] Dr. Dioni Mayorga MONO # 0.4 103/ul Normal 0.3-0.8 [facility] Comment on above: Performed By: #### C BC #### [facility] [address] [place] [address] Dr. Dioni Mayorga Monocytes/100 WBC (Bld) 6.2 % Normal 1.7-12.0 [facility] Comment on above: Performed By: #### C BC #### [facility] [address] [place] [address] Dr. Dioni Mayorga NEUT # 3.7 103/ul Normal 1.4-6.5 [facility] Comment on above: Performed By: #### C BC #### [facility] [address] [place] [address] Dr. Dioni Mayorga Neutrophils/100 WBC (Bld) 53.4 % Normal 43.0-75.0 [facility] Comment on above: Performed By: #### C BC #### [facility] [address] [place] [address] Dr. Dioni Mayorga Platelet mean volume (Bld) [Entitic vol] 10.4 fL Normal 9.5-13.5 [facility] Comment on above: Performed By: #### C BC #### [facility] [address] [place] [address] Dr. Dioni Mayorga PLT 340 103/ul Normal 150-450 [facility] Comment on above: Performed By: #### C BC #### [facility] [address] [place] [address] Dr. Dioni Mayorga RBC 5.11 106/ul Normal 4.20-5.40 [facility] Comment on above: Performed By: #### C BC #### [facility] [address] [place] [address] Dr. Dioni Mayorga WBC 6.9 103/ul Normal 4.0-11.0 [facility] Comment on above: Performed By: #### C BC #### [facility] [address] [place] [address] Dr. Dioni Mayorga FREE T3on 08-02-2021 FREE T3 1.49 pg/mlL Critically low 2.18-3.[address] [facility] Comment on above: Performed By: #### F T3, LIPID, CMP, T7, TSH #### [facility] [address] [address] [address] Dioni Mayorga FREE THYROXINE INDEX T7on FTI 2.77 Normal 1.30-4.50 [facility] Comment on above: Performed By: #### F T3, LIPID, CMP, T7, TSH #### [facility] [address] [address] [address] Dioni Mayorga T3U 36.0 % Normal 30.0-39.0 [facility] Comment on above: Performed By: #### F T3, LIPID, CMP, T7, TSH #### [facility] [address] [address] [address] Dioni Mayorga T4 [Mass/Vol] 7.70 ug/dL Normal 4.80-13.90 [facility] Comment on above: Performed By: #### F T3, LIPID, CMP, T7, TSH #### [facility] [address] [address] [address] Dioni Mayorga GLYCOHEMOGLOBIN A1Con 2021 ADA RECOMMENDATION SEE BELOW Normal [facility] Comment on above: Result Comment: ADA RECOMMENDED LIMIT 4.0 - 6.0 ADA THERAPEUTIC TARGET < 7.0 ACTION SUGGESTED > 7.0 Performed By: #### A 1C #### [facility] [address] [address] [address] Dioni Mayorga Glucose [Mass/Vol] 111 mg/dL Normal [facility] Comment on above: Performed By: #### A 1C #### [facility] [address] [address] [address] Dioni Mayorga HbA1c (Bld) [Mass fraction] 5.5 % Normal 4.5-6.2 [facility] Comment on above: Performed By: #### A 1C #### [facility] [address] [address] [address] Dioni Mayorga LIPID PROFILEon 08-02-2021 CHOL-HDL RATIO NORM SEE BELOW Normal [facility] Comment on above: Result Comment: 3.3 - 4.4 LOW RISK 4.4 - 7.1 AVERAGE RISK 7.1 - 11.0 MODERATE RISK >11.0 HIGH RISK Performed By: #### F T3, LIPID, CMP, T7, TSH #### [facility] [address] [address] [address] Dioni Mayorga Cholesterol [Mass/Vol] 211 mg/dL Critically high <=200 [facility] Comment on above: Performed By: #### F T3, LIPID, CMP, T7, TSH #### [facility] [address] [address] [address] Dioni Mayorga Cholesterol in HDL [Mass/Vol] 48 mg/dL Normal 40-60 [facility] Comment on above: Performed By: #### F T3, LIPID, CMP, T7, TSH #### [facility] [address] [address] [address] Dioni Mayorga Cholesterol in LDL [Mass/Vol] 148.6 mg/dL Normal [facility] Comment on above: Performed By: #### F T3, LIPID, CMP, T7, TSH #### [facility] [address] [address] [address] Dioni Mayorga Cholesterol.total/Ch olesterol in HDL [Mass ratio] 4.4 {ratio} Normal [facility] Comment on above: Performed By: #### F T3, LIPID, CMP, T7, TSH #### [facility] [address] [address] [address] Dioni Mayorga HDL NORMAL > or = 60 mg/dl - LOW CARDIOVASCULAR RISK <40 mg/dl - HIGH CARDIOVASCULAR RISK Normal [facility] Comment on above: Performed By: #### F T3, LIPID, CMP, T7, TSH #### [facility] [address] [place] [address] Dr. Dioni Mayorga LDL CALC NORMAL SEE BELOW Normal [facility] Comment on above: Result Comment: <100 mg/dl OPTIMAL 100 - 129 mg/dl NEAR OR ABOVE OPTIMAL 130 - 159 mg/dl BORDERLINE HIGH 160 - 189 mg/dl HIGH >190 mg/dl VERY HIGH Performed By: #### F T3, LIPID, CMP, T7, TSH #### [facility] [address] [address] [address] Dioni Mayorga Triglyceride [Mass/Vol] 72 mg/dL Normal <=150 [facility] Comment on above: Performed By: #### F T3, LIPID, CMP, T7, TSH #### [facility] [address] [address] [address] Dioni Mayorga VLDL CALC 14.4 mg/dL Normal [facility] Comment on above: Performed By: #### F T3, LIPID, CMP, T7, TSH #### [facility] [address] [address] [address] Dioni Mayorga PROF 14(COMP METB)on 022 Albumin [Mass/Vol] 3.5 g/dL Normal 3.4-5.0 [facility] Comment on above: Performed By: #### F T3, LIPID, CMP, T7, TSH #### [facility] [address] [address] [address] Dioni Mayorga Albumin/Globulin [Mass ratio] 1.0 {ratio} Normal [facility] Comment on above: Performed By: #### F T3, LIPID, CMP, T7, TSH #### [facility] [address] [place] [address] Dr. Dioni Mayorga ALP [Catalytic activity/Vol] 62 U/L Normal 46-116 [facility] Comment on above: Performed By: #### F T3, LIPID, CMP, T7, TSH #### [facility] [address] [address] [address] Dioni Mayorga ALT [Catalytic activity/Vol] 20 U/L Normal 14-59 [facility] Comment on above: Performed By: #### F T3, LIPID, CMP, T7, TSH #### [facility] [address] [address] [address] Dioni Mayorga Anion gap [Moles/Vol] 14.0 mmol/L Normal [facility] Comment on above: Performed By: #### F T3, LIPID, CMP, T7, TSH #### [facility] [address] [address] [address] Dioni Mayorga AST [Catalytic activity/Vol] 12 U/L Critically low 15-37 [facility] Comment on above: Performed By: #### F T3, LIPID, CMP, T7, TSH #### [facility] [address] [address] [address] Dioni Mayorga Bilirubin [Mass/Vol] 0.4 mg/dL Normal 0.2-1.0 [facility] Comment on above: Performed By: #### F T3, LIPID, CMP, T7, TSH #### [facility] [address] [address] [address] Dioni Mayorga Calcium [Mass/Vol] 8.7 mg/dL Normal 8.5-10.1 [facility] Comment on above: Performed By: #### F T3, LIPID, CMP, T7, TSH #### [facility] [address] [place] [address] Dr. Dioni Mayorga Chloride [Moles/Vol] 105 mmol/L Normal 98-107 [facility] Comment on above: Performed By: #### F T3, LIPID, CMP, T7, TSH #### [facility] [address] [address] [address] Dioni Mayorga CO2 [Moles/Vol] 26.4 mmol/L Normal 21.0-32.[address] [facility] Comment on above: Performed By: #### F T3, LIPID, CMP, T7, TSH #### [facility] [address] [address] [address] Dioni Mayorga Creatinine [Mass/Vol] 0.83 mg/dL Normal 0.55-1.02 [facility] Comment on above: Performed By: #### F T3, LIPID, CMP, T7, TSH #### [facility] [address] [place] [address] Dr. Dioni Mayorga EGFR-AF ZAMBIAN >60 Normal >=[address] [facility] Comment on above: Performed By: #### F T3, LIPID, CMP, T7, TSH #### [facility] [address] [place] [address] Dr. Dioni Mayorga EGFR-NON AF ZAMBIAN >60 Normal >=60 [facility] Comment on above: Performed By: #### F T3, LIPID, CMP, T7, TSH #### [facility] [address] [address] [address] Dioni Mayorga Globulin (S) [Mass/Vol] 3.5 g/dL Normal [facility] Comment on above: Performed By: #### F T3, LIPID, CMP, T7, TSH #### [facility] [address] [address] [address] Dioni Mayorga Glucose [Mass/Vol] 78 mg/dL Normal 74-106 [facility] Comment on above: Performed By: #### F T3, LIPID, CMP, T7, TSH #### [facility] [address] [place] [address] Dr. Dioni Mayorga Potassium [Moles/Vol] 4.4 mmol/L Normal 3.5-5.1 [facility] Comment on above: Performed By: #### F T3, LIPID, CMP, T7, TSH #### [facility] [address] [place] [address] Dr. Dioni Mayorga Protein [Mass/Vol] 7.0 g/dL Normal 6.4-8.2 [facility] Comment on above: Performed By: #### F T3, LIPID, CMP, T7, TSH #### [facility] [address] [place] [address] Dr. Dioni Mayorga Sodium [Moles/Vol] 141 mmol/L Normal 136-145 [facility] Comment on above: Performed By: #### F T3, LIPID, CMP, T7, TSH #### [facility] [address] [place] [address] Dr. Dioni Mayorga Urea nitrogen [Mass/Vol] 16.0 mg/dL Normal 7.0-18.0 [facility] Comment on above: Performed By: #### F T3, LIPID, CMP, T7, TSH #### [facility] [address] [place] [address] Dr. Dioni Mayorga Urea nitrogen/Creatinine [Mass ratio] 19.3 mg/mg Normal [facility] Comment on above: Performed By: #### F T3, LIPID, CMP, T7, TSH #### [facility] [address] [place], [place] [address] Dr. Dioni Mayorga TSHon 08-02-2021 TSH 1.339 uIU/mL Normal 0.358-3.740 [facility] Comment on above: Performed By: #### F T3, LIPID, CMP, T7, TSH #### [facility] [address] [place], [place] [address] Dr. Dioni Mayorga Vital Signs Date Time Vital Sign Value Performing Clinician Faci lity 09-03-2021 08:51-0400 Blood Pressure Location MICHAEL NUGENT [facility] 09-03-2021 08:51-0400 Diastolic blood pressure 96 mm[Hg] MICHAEL NUGENT [facility] 09-03-2021 08:51-0400 Heart rate 106 /min MICHAEL NUGENT [facility] 09-03-2021 08:51-0400 Systolic blood pressure 138 mm[Hg] MICHAEL NUGENT [facility] Encounters Encounter Date Encounter Type Care Provider Facility Start: 01-11-2023 End: 01-12-2023 ambulatory Harish Cannon MD Facility:[facility] Start: 12-07-2022 End: 12-08-2022 ambulatory Harish Cannon MD Facility:[facility] Start: 11-23-2022 End: 11-24-2022 ambulatory Harish Cannon MD Facility:[facility] Start: 11-02-2022 End: 11-03-2022 ambulatory Harish Cannon MD Facility:[facility] Start: 03-02-2022 End: 03-02-2022 ambulatory SALVADOR GROSS Facility:[facility] Start: 12-15-2021 End: 12-15-2021 ambulatory SALVADOR GROSS Facility:[facility] Start: 12-09-2021 End: 12-09-2021 ambulatory SALVADOR GROSS Facility:[facility] Start: 09-17-2021 End: 09-18-[address] MONIKA MATTHEWS Facility:[facility] Start: 09-03-[address] MONIKA MATTHEWS Facility :[facility] Start: 09-03-2021 End: 09-03-2021 Patient encounter procedure MICHAEL NUGENT [facility] Start: 08-05-2021 Encounter for genera l adult medical examination without abnormal findings DR MONIKA MATTHEWS [facility] Start: 08-02-2021 End: 08-03-[address] MONIKA MATTHEWS Facility:[facility] Start: 08-02-2021 End: 08-03-2021 Encounter for general adult medical examination without abnormal findings DR MONIKA MATTHEWS Facility:[facility] Procedures Date Procedure Procedure Detail Performing Clinician Hysterectomy MICHAEL NUGENT Immunizations Immunization Date Immunization Notes Care Provider Fa cility NEGATED: Highlighted row has not occurred!09-03-2021 SARS-CoV-2 mRNA (tozinameran 5y-11y) vaccine MICHAEL NUGENT [facility] Payers Date Payer Category Payer Unknown [id number] 2022 Unknown 2019 Unknown [id number] 1970 Unknown [id number] 2.16.84 [id number] 1970 Unknown [id number] 2.16.84 [id number] 1970 Unknown [id number] 2.16.84 [id number] 1970 Unknown [id number] 2.16.84 [id number] 1970 Unknown [id number] 2.16.84 [id number] 1970 Unknown [id number] 2.16.84 [id number] 1970 Unknown [id number] 2.16. [id number] 1970 Unknown [id number] 2.16. [id number] 1970 Unknown [id number] 2.16. [id number] 1970 Unknown [id number] Social History Date Type Detail Facility Start: 09-03-2021 Tobacco smoking status Never s moked tobacco (finding) [facility] Tobacco smoking status Never [facility] Sex Assigned At Female [facility] [employer] Functional Status Date Assessment Result Facility 09-03-2021 Functional Status N/A [facility] Hospital Discharge instructions 09-03-2021 Note Date & [...] (electrical nerve stimulation). For women, using a emergency medical technician basic to prevent urine leaks. This is a [...] right after experiencing incontinence. General instructions Take [id number] and prescription medicines only as told by [...] 03/11/2005 Document Revised: 02/11/2018 Document Reviewed: 05/13/2017 [employer] Patient Education [employer]. Follow Up Care 08/06/2021 08:10:07 With:pt will call once she decides how she would like to proceed Address:Unknown When: Unknown [facility] Evaluation + Plan note Note Date & Type Note Facility Evaluation + Plan note Future Appointments Appointment Date:09/17/2021 08:30:00 AM Scheduled Provider: Location:[facility] Appointment Type:URO Nurse Visit [facility] Hospital course Narrative Note Date & Type Note Facility Hospital course Narrative No data available for this section [facility] Progress note Note Date & Type Note Facility Progress note No data available for this section [facility] Summary Purpose Family History No Family History Records FoundNo Family History Records FoundNo Family History Records Found Advance Directives No Advanced Directives Records FoundNo Advanced Directives Records FoundNo Advanced Directives Records Found Additional Source Comments Care Team (unrecognized sect ion and content) Personnel Name: Monika Matthews MD Address: [address] [place] [address] [place] [id number]- INFORMATION SOURCE (unrecogn ized section and content) DATE CREATED AUTHOR 09/18/2021 [facility] DATE CREATED AUTHOR AUTHOR'S ORGANIZ ATION 03/02/2022 [facility] DATE CREATED AUTHOR AUTHOR'S ORGANIZ ATION 01/15/2023 [facility] FOR RECORDS PERTAINING TO PATIENTS WHO ARE [...] BE BASED ON THE PRIMARY CLINICAL RECORDS. [facility] [employer] [facility]. provides no warranty or guarantee of the accuracy or completeness of information in this document.
== END 2023-04-22 14:53 | disposition home or self-care (01) ==
LOC: MRI 14:52
PROVIDERS: PCP Family Medicine; Visit Provider Anesthesiology
DX: M54.16 Radiculopathy, lumbar region (principal); M48.062 Spinal stenosis, lumbar region with neurogenic claudication; M51.36 Other intervertebral disc degeneration, lumbar region
CPT/HCPCS: 72148

== ENCOUNTER 2023-05-17 06:31 | Day surgery (SDC) | payer BC, SELFPAY ==
--- OUTSIDE RECORDS SUMMARY | 2023-05-17 06:33 | XMS_ITS | CCD ---
Author Organization [facility] Care Team Providers Care Shelver Name Role Phone Monika Matthews Primary Care Physician DR MONIKA MATTHEWS Admitting Unavailable CASSIE, DR FRANK Attending Unavailable [...] Care Unavailable CASSIE, DR FRANK Consulting Unavailable Davis GARNICA, Harish Olivier Attending Unavailable Giazraitis , [...] Value Interpretation Reference Range Facility [facility]15 SARS-CoV-2 (COVID-19) RNA YAMILET+probe Ql (Unsp spec) Not detected Normal NOT DETECTED The [facility] Comment on above: Result Comment: When diagnostic [...] for this test is supported by the [place] of Health and Human Service's declaration that [...] be used). Performed By: #### C VDTB ####[facility] [address] [place] [address]Dr. Dioni Mayorga INFLUENZA A AND B AGon 03-02 [facility] SEE BELOW Normal [facility] Comment on above: Result Comment: Nega tive for Flu A protein angiten. Infection due to Flu A cannot be ruled out. Flu A angiten in the sample may be below the detection limit of the test. Performed By: #### I NFLUAB #### [facility] [address] [place] [address] Dr. Dioni Mayorga [facility] SEE BEL[facility] Normal [facility] Comment on above: Result Comment: Nega tive for Flu B protein antigen. Infection due to Flu B cannot be ruled out. Flu B antigen in the sample may be below the detection limit of the test. Performed By: #### I NFLUAB #### [facility] [address] [place] [address] Dr. Dioni Mayorga INFLUENZA A AG Negative Normal NEGATIVE SEE COMMENT [facility] Comment on above: Performed By: #### I NFLUAB #### [facility] [address] [place] [address] Dr. Dioni Mayorga INFLUENZA B AG Negative Normal NEGATIVE SEE COMMENT [facility] Comment on above: Performed By: #### I NFLUAB #### [facility] [address] [place] [address] Dr. Dioni Mayorga ASYMPTOMATIC COVID-19 ANTIGE Non 12-15-2021 EUA Statement SEE BELOW Normal [facility] Comment on above: Result Comment: This test [...] sooner. Performed By: #### C VDAGA #### [facility] [address] [place] [address] Dr. Dioni Mayorga SARS-CoV-2 (COVID-19) RNA YAMILET+probe Ql (Unsp spec) Negative Normal NEGATIVE The [facility] Comment on above: Result Comment: Nega tive results are presumptive. They do not preclude infection and should not be used as the sole basis for treatment decisions. Additional confirmatory testing by a molecular method should be considered. Performed By: #### C VDAGA #### [facility] [address] [place] [address] Dr. Dioni Mayorga Covid-19 PCR ([facility])on 11-16 SARS-CoV-2 (COVID-19) RNA YAMILET+probe Ql (Unsp spec) Detected Critically abnormal NOT DETECTED The [facility] Comment on above: Result Comment: This test is not yet approved or cleared by the [place] FDA. When there are no FDA-approved or cleared tests available, and other criteria are met, FDA can make tests available under an emergency access mechanism called an Emergency Use Authorization (EUA). The EUA for this test is supported by the [place] of Health and Human Service's declaration that [...] be used). Performed By: #### C VDTB ####[facility] [address] [place], [place] [address]Gb. Dioni Mayorga MG MAMM SCREEN 3D DUSTIN CADon 09-17-2021 MG MAMM SCREEN 3D DUSTIN CAD Patient: BARBARA BACA Exam Date: 09/17/2021 : 1970 Gender:F Ordering : DR MONIKA MATTHEWS . Admission #: [id number] Family : Order #: [id number] CLICK HERE TO VIEW EXAM RADIOLOGY REPORT PROCEDURE: MAMMOGRAM SCREENING 3D BILATERAL CAD COMPARISON: MG MAMM SCREEN 3D DUSTIN CAD, 05/08/2020. MAMMO POST BIOPSY RIGHT, 01/04/2018. INDICATIONS: Screening mammography Calculator Name NCI Breast Cancer Risk Assessment Tool 5 Year Breast Cancer Risk 1.00% Lifetime Breast Cancer Risk 9.60% Personal Breast Cancer No Personal Ovarian Cancer No Treatments None Family Cancers None LOCATION: The [facility] BREAST COMPOSITION: Scattered areas fibroglandular density. FINDINGS: [...] Rodarte M.D. on 09/17/2021 at 13:13 Normal [facility]son 09-04-2021 Forms [id number] #1.00CD:127 Normal [facility] Patient Educationon 09-05-19 22 Patient Education Obstetrics [...] Take ove (more content not included)... Normal [facility] Physician Referralon 022 Physician Referral [id number]#1.00CD:127 Normal [facility] [...] had hysterectomy about 10 yrs ago. 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 [...] E&M of New Patient Moderate 45-59 Min 25644 Follow-up With When Contact Information pt will [...] Immunizations Vaccine Date Status Comments SARS-CoV-2 mRNA (tocristaln 5y-11y) vac - Not Given Postpone due to refusal [facility] Comment on above: Result Comment: Elec tronically Signed By: MICHAEL NUGENT PA-C\.br\Date and Time Signed: 09/04/21 09:42 EDT Ambulatory Visit Summaryon 0 09-03-2021 Ambulatory Visit Summary BARBARA BACA :1970 Visit Date:09/03/2021 Ambulatory Visit Instructions Your Diagnosis Stress incontinence Tests Performed Urnls Dip Stick Auto w/o Microscopy POC 78771 Your Care Team Attending Physician - MICHAEL [...] Urnls Dip Stick Auto w/o Microscopy POC 46602 (09/03/2021) Bilirubin Urine Dipstick - Negative Blood Urine Dipstick - Trace-intact Glucose Urine Dipstick - Negative Ketones Urine Dipstick - Negative Leukocytes Urine Dipstick - Negative Nitrite Urine Dipstick - Negative Protein Urine Dipstick - Negative Specific [place] Urine Dipstick - 1.020 Urine Appearance Urine Dipstick - Clear Urine Color Urine Dipstick - Yellow Urobilinogen Urine Dipstick - Normal 0.2-1 EU/dl pH Urine Dipstick - 5 Medications and Immunizations Administered Not Given SARS-CoV-2 mRNA (tozinameran 5y-11y) vac, Postpone due to refusal Allergies No Known Allergies No Known Medication Allergies Normal [facility] CBC AUTO DIFFon 08-02-2021 BASO # 0.0 103/ul Normal 0.0-0.1 [facility] Comment on above: Performed By: #### C BC #### [facility] [address] [address] [address] Dioni Mayorga Basophils/100 WBC (Bld) 0.4 % Normal 0.2-2.0 [facility] Comment on above: Performed By: #### C BC #### [facility] [address] [address] [address] Dioni Mayorga EO # 0.1 103/ul Normal 0.0-0.7 [facility] Comment on above: Performed By: #### C BC #### [facility] [address] [address] [address] Dioni Mayorga Eosinophils/100 WBC (Bld) 1.0 % Normal 0.9-7.0 [facility] Comment on above: Performed By: #### C BC #### [facility] [address] [address] [address] Dioni Mayorga Erythrocyte distribution width (RBC) [Ratio] 13.4 % Normal 11.0-15.0 [facility] Comment on above: Performed By: #### C BC #### [facility] [address] [address] [address] Dioni Mayorga Hematocrit (Bld) [Volume fraction] 45.2 % Normal 36.0-48.0 [facility] Comment on above: Performed By: #### C BC #### [facility] [address] [address] [address] Dioni Mayorga Hemoglobin (Bld) [Mass/Vol] 14.5 g/dL Normal 12.0-16.0 [facility] Comment on above: Performed By: #### C BC #### [facility] [address] [place] [address] Dr. Dioni Mayorga IG # 0.02 10e3/ul Normal 0.00-0.03 [facility] Comment on above: Performed By: #### C BC #### [facility] [address] [place] [address] Dr. Dioni Mayorga IG % 0.3 % Normal 0.0-0.5 [facility] Comment on above: Performed By: #### C BC #### [facility] [address] [place] [address] Dr. Dioni Mayorga LYMPH # 2.7 103/ul Normal 1.2-3.8 [facility] Comment on above: Performed By: #### C BC #### [facility] [address] [place] [address] Dr. Dioni Mayorga Lymphocytes/100 WBC (Bld) 38.7 % Normal 20.5-60.0 [facility] Comment on above: Performed By: #### C BC #### [facility] [address] [place] [address] Dr. Dioni Mayorga MANUAL DIFF REQ NO Normal [facility] Comment on above: Performed By: #### C BC #### [facility] [address] [place] [address] Dr. Dioni Mayorga MCH (RBC) [Entitic mass] 28.4 pg Normal 26.7-34.0 [facility] Comment on above: Performed By: #### C BC #### [facility] [address] [place] [address] Dr. Dioni Mayorga MCHC (RBC) [Mass/Vol] 32.1 g/dL Normal 29.9-35.2 [facility] Comment on above: Performed By: #### C BC #### [facility] [address] [place] [address] Dr. Dioni Mayorga MCV (RBC) [Entitic vol] 88.5 fL Normal 81.0-99.0 [facility] Comment on above: Performed By: #### C BC #### [facility] [address] [place] [address] Dr. Dioni Mayorga MONO # 0.4 103/ul Normal 0.3-0.8 [facility] Comment on above: Performed By: #### C BC #### [facility] [address] [place] [address] Dr. Dioni Mayorga Monocytes/100 WBC (Bld) 6.2 % Normal 1.7-12.0 [facility] Comment on above: Performed By: #### C BC #### [facility] [address] [place] [address] Dr. Dioni Mayorga NEUT # 3.7 103/ul Normal 1.4-6.5 [facility] Comment on above: Performed By: #### C BC #### [facility] [address] [place] [address] Dr. Dioni Mayorga Neutrophils/100 WBC (Bld) 53.4 % Normal 43.0-75.0 [facility] Comment on above: Performed By: #### C BC #### [facility] [address] [place] [address] Dr. Dioni Mayorga Platelet mean volume (Bld) [Entitic vol] 10.4 fL Normal 9.5-13.5 [facility] Comment on above: Performed By: #### C BC #### [facility] [address] [place] [address] Dr. Dioni Mayorga PLT 340 103/ul Normal 150-450 [facility] Comment on above: Performed By: #### C BC #### [facility] [address] [place] [address] Dr. Dioni Mayorga RBC 5.11 106/ul Normal 4.20-5.40 [facility] Comment on above: Performed By: #### C BC #### [facility] [address] [place] [address] Dr. Dioni Mayorga WBC 6.9 103/ul Normal 4.0-11.0 [facility] Comment on above: Performed By: #### C BC #### [facility] [address] [place] [address] Dr. Dioni Mayorga FREE T3on 06-18-2022 FREE T3 1.49 pg/mlL Critically low 2.18-3.98 [facility] Comment on above: Performed By: #### F T3, LIPID, CMP, T7, TSH #### [facility] [address] [address] [address] Dioni Mayorga FREE THYROXINE INDEX T7on FTI 2.77 Normal 1.30-4.50 [facility] Comment on above: Performed By: #### F T3, LIPID, CMP, T7, TSH #### [facility] [address] [address] [address] Dioni Mayorga T3U 36.0 % Normal 30.0-39.0 [facility] Comment on above: Performed By: #### F T3, LIPID, CMP, T7, TSH #### [facility] [address] [address] [address] Dioni Mayorga T4 [Mass/Vol] 7.70 ug/dL Normal 4.80-13.90 [facility] Comment on above: Performed By: #### F T3, LIPID, CMP, T7, TSH #### [facility] [address] [address] [address] Dioni Mayorga GLYCOHEMOGLOBIN A1Con 2021 ADA RECOMMENDATION SEE BELOW Normal [facility] Comment on above: Result Comment: ADA RECOMMENDED LIMIT 4.0 - 6.0 ADA THERAPEUTIC TARGET < 7.0 ACTION SUGGESTED > 7.0 Performed By: #### A 1C #### [facility] [address] [address] [address] Dioni Mayorga Glucose [Mass/Vol] 111 mg/dL Normal [facility] Comment on above: Performed By: #### A 1C #### [facility] [address] [address] [address] Dioni Mayorga HbA1c (Bld) [Mass fraction] 5.5 % Normal 4.5-6.2 [facility] Comment on above: Performed By: #### A 1C #### [facility] [address] [address] [address] Dioni Mayorga LIPID PROFILEon 08-02-2021 CHOL-HDL RATIO NORM SEE BELOW Normal [facility] Comment on above: Result Comment: 3.3 - 4.4 LOW RISK 4.4 - 7.1 AVERAGE RISK 7.1 - 11.0 MODERATE RISK >11.0 HIGH RISK Performed By: #### F T3, LIPID, CMP, T7, TSH #### [facility] [address] [address] [address] Dioni Mayorga Cholesterol [Mass/Vol] 211 mg/dL Critically high <=200 [facility] Comment on above: Performed By: #### F T3, LIPID, CMP, T7, TSH #### [facility] [address] [address] [address] Dioni Mayorga Cholesterol in HDL [Mass/Vol] 48 mg/dL Normal 40-60 [facility] Comment on above: Performed By: #### F T3, LIPID, CMP, T7, TSH #### [facility] [address] [place] [address] Dr. Dioni Mayorga Cholesterol in LDL [Mass/Vol] 148.6 mg/dL Normal [facility] Comment on above: Performed By: #### F T3, LIPID, CMP, T7, TSH #### [facility] [address] [address] [address] Dioni Mayorga Cholesterol.total/Ch olesterol in HDL [Mass ratio] 4.4 {ratio} Normal [facility] Comment on above: Performed By: #### F T3, LIPID, CMP, T7, TSH #### [facility] [address] [address] [address] Dioni Mayorga HDL NORMAL > or = 60 mg/dl - LOW CARDIOVASCULAR RISK <40 mg/dl - HIGH CARDIOVASCULAR RISK Normal [facility] Comment on above: Performed By: #### F T3, LIPID, CMP, T7, TSH #### [facility] [address] [place] [address] Dr. Dioni Mayorga LDL CALC NORMAL SEE BELOW Normal [facility] Comment on above: Result Comment: <100 mg/dl OPTIMAL 100 - 129 mg/dl NEAR OR ABOVE OPTIMAL 130 - 159 mg/dl BORDERLINE HIGH 160 - 189 mg/dl HIGH >190 mg/dl VERY HIGH Performed By: #### F T3, LIPID, CMP, T7, TSH #### [facility] [address] [address] [address] Dioni Mayorga Triglyceride [Mass/Vol] 72 mg/dL Normal <=150 [facility] Comment on above: Performed By: #### F T3, LIPID, CMP, T7, TSH #### [facility] [address] [address] [address] Dioni Mayorga VLDL CALC 14.4 mg/dL Normal [facility] Comment on above: Performed By: #### F T3, LIPID, CMP, T7, TSH #### [facility] [address] [address] [address] Dioni Mayorga PROF 14(COMP METB)on 022 Albumin [Mass/Vol] 3.5 g/dL Normal 3.4-5.0 [facility] Comment on above: Performed By: #### F T3, LIPID, CMP, T7, TSH #### [facility] [address] [place] [address] Dr. Dioni Mayorga Albumin/Globulin [Mass ratio] 1.0 {ratio} Normal [facility] Comment on above: Performed By: #### F T3, LIPID, CMP, T7, TSH #### [facility] [address] [place] [address] Dr. Dioni Mayorga ALP [Catalytic activity/Vol] 62 U/L Normal 46-116 [facility] Comment on above: Performed By: #### F T3, LIPID, CMP, T7, TSH #### [facility] [address] [address] [address] Dioni Mayorga ALT [Catalytic activity/Vol] 20 U/L Normal 14-59 [facility] Comment on above: Performed By: #### F T3, LIPID, CMP, T7, TSH #### [facility] [address] [place] [address] Dr. Dioni Mayorga Anion gap [Moles/Vol] 14.0 mmol/L Normal [facility] Comment on above: Performed By: #### F T3, LIPID, CMP, T7, TSH #### [facility] [address] [place] [address] Dr. Dioni Mayorga AST [Catalytic activity/Vol] 12 U/L Critically low 15-37 [facility] Comment on above: Performed By: #### F T3, LIPID, CMP, T7, TSH #### [facility] [address] [address] [address] Dioni Mayorga Bilirubin [Mass/Vol] 0.4 mg/dL Normal 0.2-1.0 [facility] Comment on above: Performed By: #### F T3, LIPID, CMP, T7, TSH #### [facility] [address] [address] [address] Dioni Mayorga Calcium [Mass/Vol] 8.7 mg/dL Normal 8.5-10.1 [facility] Comment on above: Performed By: #### F T3, LIPID, CMP, T7, TSH #### [facility] [address] [place] [address] Dr. Dioni Mayorga Chloride [Moles/Vol] 105 mmol/L Normal 98-107 [facility] Comment on above: Performed By: #### F T3, LIPID, CMP, T7, TSH #### [facility] [address] [address] [address] Dioni Mayorga CO2 [Moles/Vol] 26.4 mmol/L Normal 21.0-32.0 [facility] Comment on above: Performed By: #### F T3, LIPID, CMP, T7, TSH #### [facility] [address] [address] [address] Dioni Mayorga Creatinine [Mass/Vol] 0.83 mg/dL Normal 0.55-1.02 [facility] Comment on above: Performed By: #### F T3, LIPID, CMP, T7, TSH #### [facility] [address] [address] [address] Dioni Mayorga EGFR-AF TRINIDADIAN >60 Normal >=[address] [facility] Comment on above: Performed By: #### F T3, LIPID, CMP, T7, TSH #### [facility] [address] [address] [address] Dioni Mayorga EGFR-NON AF TRINIDADIAN >60 Normal >=60 [facility] Comment on above: Performed By: #### F T3, LIPID, CMP, T7, TSH #### [facility] [address] [address] [address] Dioni Mayorga Globulin (S) [Mass/Vol] 3.5 g/dL Normal [facility] Comment on above: Performed By: #### F T3, LIPID, CMP, T7, TSH #### [facility] [address] [address] [address] Dioni Mayorga Glucose [Mass/Vol] 78 mg/dL Normal 74-106 [facility] Comment on above: Performed By: #### F T3, LIPID, CMP, T7, TSH #### [facility] [address] [place] [address] Dr. Dioni Mayorga Potassium [Moles/Vol] 4.4 mmol/L Normal 3.5-5.1 [facility] Comment on above: Performed By: #### F T3, LIPID, CMP, T7, TSH #### [facility] [address] [address] [address] Dioni Mayorga Protein [Mass/Vol] 7.0 g/dL Normal 6.4-8.2 [facility] Comment on above: Performed By: #### F T3, LIPID, CMP, T7, TSH #### [facility] [address] [place] [address] Dr. Dioni Mayorga Sodium [Moles/Vol] 141 mmol/L Normal 136-145 [facility] Comment on above: Performed By: #### F T3, LIPID, CMP, T7, TSH #### [facility] [address] [place] [address] Dr. Dioni Mayorga Urea nitrogen [Mass/Vol] 16.0 mg/dL Normal 7.0-18.0 [facility] Comment on above: Performed By: #### F T3, LIPID, CMP, T7, TSH #### [facility] [address] [place] [address] Dr. Dioni Mayorga Urea nitrogen/Creatinine [Mass ratio] 19.3 mg/mg Normal [facility] Comment on above: Performed By: #### F T3, LIPID, CMP, T7, TSH #### [facility] [address] [place], [place] [address] Dr. Dioni Mayorga TSHon 08-02-2021 TSH 1.339 uIU/mL Normal 0.358-3.740 [facility] Comment on above: Performed By: #### F T3, LIPID, CMP, T7, TSH #### [facility] [address] [place], [place] [address] Dr. Dioni Mayorga Vital Signs Date Time Vital Sign Value Performing Clinician Faci lity 09-03-2021 08:51-0400 Blood Pressure Location MICHAEL NUGENT [facility] [place] [facility] 09-03-2021 08:51-0400 Diastolic blood pressure 96 mm[Hg] MICHAEL NUGENT [facility] 09-03-2021 08:51-0400 Heart rate 106 /min MICHAEL NUGENT [facility] 09-03-2021 08:51-0400 Systolic blood pressure 138 mm[Hg] MICHAEL NUGENT [facility] Encounters Encounter Date Encounter Type Care Provider Facility Start: 04-19-2023 End: 04-20-2023 ambulatory [facility]ish [facility] MD [facility] Start: 01-11-2023 End: 01-12-2023 ambulatory Harish Cannon MD Facility:[facility] Start: 12-07-2022 End: 12-08-2022 ambulatory Harish Cannon MD Facility:[facility] Start: 11-23-2022 End: 11-24-2022 ambulatory Harish Cannon MD Facility:[facility] Start: 11-02-2022 End: 11-03-2022 ambulatory Hraish Cannon MD Facility:[facility] Start: 03-02-2022 End: 03-02-2022 ambulatory SALVADOR GROSS Facility:[facility] Start: 12-15-2021 End: 12-15-2021 ambulatory SALVADOR GROSS Facility:[facility] Start: 12-09-2021 End: 12-09-2021 ambulatory SALVADOR GROSS Facility:[facility] Start: 09-17-2021 End: 09-18-[address] MONIKA MATTHEWS Facility:[facility] Start: 09-03-[address] MONIKA MATTHEWS Facility :[facility] Start: 09-03-2021 End: 09-03-2021 Patient encounter procedure MICHAEL NUGENT [facility] [place] [facility] Start: 08-05-2021 Encounter for genera l adult medical examination without abnormal findings DR MONIKA MATTHEWS [facility] Start: 08-02-2021 End: 08-03-[address] MONIKA MATTHEWS Facility:[facility] Start: 08-02-2021 End: 08-03-2021 Encounter for general adult medical examination without abnormal findings DR MONIKA MATTHEWS Facility:[facility] Procedures Date Procedure Procedure Detail Performing Clinician Hysterectomy MICHAEL NUGENT Immunizations Immunization Date Immunization Notes Care Provider Fa cility NEGATED: Highlighted row has not occurred!09-03-2021 SARS-CoV-2 mRNA (tozinameran 5y-11y) vaccine MICHAEL NUGENT [facility] [place] [facility] Payers Date Payer Category Payer Unknown [id number] 2022 Unknown 2019 Unknown [id number] 1970 Unknown [id number] 2.16.84 [id number] 1970 Unknown [id number] 2.16.84 [id number] 1970 Unknown [id number] 2.16.84 [id number] 1970 Unknown [id number] 2.16.84 [id number] 1970 Unknown [id number] 2.16.84 [id number] 1970 Unknown [id number] 2.16.84 [id number] 1970 Unknown [id number] 2.16. [id number] 1970 Unknown [id number] 2.16. [id number] 1970 Unknown [id number] 2.16. [id number] 1970 Unknown [id number] 2.16. [id number] 1970 Unknown [id number] 2.16. [id number] Social History Date Type Detail Facility Start: 09-03-2021 Tobacco smoking status Never s moked tobacco (finding) [facility] Tobacco smoking status Never [facility] Sex Assigned At Female [facility] Functional Status Date Assessment Result Facility 09-03-2021 Functional Status N/A [facility] [place] [facility] Discharge instructions 09-03-2021 Note Date & [...] (electrical nerve stimulation). For women, using a director of medical education to prevent urine leaks. This is a [...] right after experiencing incontinence. General instructions Take igzt-ool-olfiymx and prescription medicines only as told by [...] 03/11/2005 Document Revised: 02/11/2018 Document Reviewed: 05/13/2017 [employer] Patient Education 2020 [employer]. Follow Up Care 08/06/2021 08:10:07 With:pt will call once she decides how she would like to proceed Address:Unknown When: Unknown [facility] [place] [facility] Evaluation + Plan note Note Date & Type Note Facility Evaluation + Plan note Future Appointments Appointment Date:09/17/2021 08:30:00 AM Scheduled Provider: Location:[facility] Appointment Type:URO Nurse Visit [facility] [place] [facility] Hospital course Narrative Note Date & Type Note Facility Hospital course Narrative No data available for this section [facility] [place] [facility] Progress note Note Date & Type Note Facility Progress note No data available for this section [facility] Summary Purpose Family History No Family History Records FoundNo Family History Records FoundNo Family History Records Found Advance Directives No Advanced Directives Records FoundNo Advanced Directives Records FoundNo Advanced Directives Records Found Additional Source Comments Care Team (unrecognized sect ion and content) Personnel Name: Monika Matthews MD Address: [address] [place], [place] [id number] INFORMATION SOURCE (unrecogn ized section and content) DATE CREATED AUTHOR 09/18/2021 [facility] DATE CREATED AUTHOR AUTHOR'S ORGANIZ ATION 03/02/2022 [facility] DATE CREATED AUTHOR AUTHOR'S ORGANIZ ATION 04/23/2023 [facility] FOR RECORDS PERTAINING TO [...] BE BASED ON THE PRIMARY CLINICAL RECORDS. [facility]. provides no warranty or guarantee of the accuracy or completeness of information in this document.
[2023-05-17 07:09] VITALS: BP 141/90; PULSE 104; TEMP 36.2; O2SAT 98
[2023-05-17] MEDS: 0.9 % SODIUM CHLORIDE 10 ML INJ (07:39)
--- NOTE | 2023-05-17 07:39 | W.PM.PROCNOT ---
Date of procedure: 05/17/23 Pre-op diagnosis: lumbar stenosis with neurogenic claudication Post-op diagnosis: same as pre-op Procedure: Procedure: Bilateral L5-S1 transforaminal epidural steroid injection Medications: Bupivacaine 0.25% 2cc, lidocaine 2% 1cc, kenalog 80mg The patient was seen and examined in the preoperative holding area.? Informed consent was obtained and placed on the chart.? Patient was brought to the medical procedure unit and placed in the prone position where a timeout was completed verifying the correct patient, procedure site, position, and planned special equipment using sterile aseptic technique.? Under direct fluoroscopic visualization a 25-gauge Quincke tipped spinal needle was advanced at level left L5-S1 to the designated neural foramen where contrast dye was injected to show adequate spread.? There was no evidence of vascular or adverse uptake.? Epidural spread was appreciated.? The above-mentioned injectate was then placed in a 1.5 mL aliquot preceded by negative aspiration.? The needle was removed. The same procedure, at the same level, was completed on the opposite side. ? Patient was taken to the postprocedural recovery area and monitored for an appropriate length of time before found suitable for discharge in the accompaniment of a responsible adult. Anesthesia: Local Surgeon: Harish Cannon Pathology: none sent Condition: stable Disposition: no change
[2023-05-17] MEDS: TRIAMCINOLONE ACETONIDE 40 MG/ML VIAL 80 MG INJ (07:40)
[2023-05-17] MEDS: IOHEXOL 240 MG/ML - 10 ML VIAL 24 MG INJ (07:40)
[2023-05-17] MEDS: BUPIVACAINE HCL 0.25% PF 25 MG/10 ML VIAL INJ (07:40)
[2023-05-17] MEDS: LIDOCAINE HCL 2% PF 100 MG/5 ML VIAL INJ (07:40)
[2023-05-17 07:41] VITALS: BP 122/78; BP 125/87; PULSE 92; PULSE 94; O2SAT 95; O2SAT 96
== END 2023-05-17 07:42 | disposition home or self-care (01) ==
PROVIDERS: PCP Family Medicine; Visit Provider Anesthesiology
DX: M48.062 Spinal stenosis, lumbar region with neurogenic claudication (principal)
CPT/HCPCS: 64483; Q9966

== ENCOUNTER 2023-05-27 07:41 | Outpatient (OUT) | payer BC, SELFPAY ==
--- OUTSIDE RECORDS SUMMARY | 2023-05-27 07:44 | XMS_ITS | CCD ---
Author Organization [facility] Care Team Providers Care Band Teacher Name Role Phone Monika Matthews Primary Care [...] Care Unavailable GINNY, SALVADOR Consulting Unavailable GINNY, SALVAODR Admitting Unavailable GINNY, SALVADOR Attending Unavailable CASSIE, DR FRANK Primary Care Unavailable GINNY, SALVADOR Consulting Unavailable CASSIE, DR FRANK Admitting Unavailable CASSIE, DR FRANK Attending Unavailable CASSIE, DR FRANK Primary Care Unavailable CASSIE, DR FRANK Consulting Unavailable Gihermila GARNICA, Harish Olivier Attending Unavailable Gieditis , Harish Olivier Attending Unavailable Giedraitis , Andmarie Olivier Attending Unavailable Gieditis , Andmarie Olivier Attending Unavailable Giedraitis , Andmarie Olivier Attending Unavailable Gieditis , Harish Olivier Attending Unavailable Medications Current Medications [...] Value Interpretation Reference Range Facility [facility]15 SARS-CoV-2 (COVID-19) RNA YAMILET+probe Ql (Unsp spec) Not detected Normal NOT DETECTED [facility] Comment on above: Result Comment: When [...] for this test is supported by the [place] of Health and Human Service's declaration that [...] longer be used). Performed By: #### C [facility] ####[facility] [id number] [address]Dr. Dioni Mayorga INFLUENZA A AND B AGon 03-02 [facility] SEE BELOW Normal [facility] Comment on above: Result Comment: Nega tive for Flu A protein angiten. Infection due to Flu A cannot be ruled out. Flu A angiten in the sample may be below the detection limit of the test. Performed By: #### I NFLUAB #### [facility] [address] [place] [address] Dr. Dioni Mayorga [facility] SEE BELOW Normal [facility] Comment on above: Result Comment: Nega tive for Flu B protein antigen. Infection due to Flu B cannot be ruled out. Flu B antigen in the sample may be below the detection limit of the test. Performed By: #### I NFLUAB #### [facility] [address] [address] [address] Dioni Mayorga INFLUENZA A AG Negative Normal NEGATIVE SEE COMMENT [facility] Comment on above: Performed By: #### I NFLUAB #### [facility] [address] [place] [address] Dr. Dioni Mayorga INFLUENZA B AG Negative Normal NEGATIVE SEE COMMENT [facility] Comment on above: Performed By: #### I NFLUAB #### [facility] [address] [place] [address] Dr. Dioni Mayorga ASYMPTOMATIC COVID-19 ANTIGE Non 12-15-2021 EUA Statement SEE BELOW Normal [facility] Comment on above: Result Comment: This [...] sooner. Performed By: #### C VDAGA #### [facility] [address] [place] [address] Dr. Dioni Mayorga SARS-CoV-2 (COVID-19) RNA YAMILET+probe Ql (Unsp spec) Negative Normal NEGATIVE [facility] Comment on above: Result Comment: Nega tive results are presumptive. They do not preclude infection and should not be used as the sole basis for treatment decisions. Additional confirmatory testing by a molecular method should be considered. Performed By: #### C VDAGA #### [facility] [address] [place] [address] Dr. Dioni Mayorga Covid-19 PCR (CVDTB)on 11-16 SARS-CoV-2 (COVID-19) RNA YAMILET+probe Ql (Unsp spec) Detected Critically abnormal NOT DETECTED [facility] Comment on above: Result Comment: This test is not yet approved or cleared by the [place] FDA. When there are no FDA-approved or cleared tests available, and other criteria are met, FDA can make tests available under an emergency access mechanism called an Emergency Use Authorization (EUA). The EUA for this test is supported by the [employer] [place] of Health and Human Service's declaration that [...] be used). Performed By: #### C VDTB ####[facility] [id number] [place], [place] [address]Wp. Dioni Mayorga MG MAMM SCREEN 3D DUSTIN CADon 09-17-2021 MG MAMM SCREEN 3D DUSTIN CAD Patient: BARBARA BACA Exam Date: 09/17/2021 : 1970 Gender:F Ordering : DR MONIKA MATTHEWS . Admission #: [id number] Family : Order #: [id number] CLICK HERE TO VIEW EXAM RADIOLOGY REPORT PROCEDURE: MAMMOGRAM SCREENING 3D BILATERAL CAD COMPARISON: MG MAMM SCREEN 3D DUSTIN CAD, 05/08/2020. MAMMO POST BIOPSY RIGHT, 01/04/2018. INDICATIONS: Screening mammography Calculator Name NCI Breast Cancer Risk Assessment Tool 5 Year Breast Cancer Risk 1.00% Lifetime Breast Cancer Risk 9.60% Personal Breast Cancer No Personal Ovarian Cancer No Treatments None Family Cancers None LOCATION: [facility] BREAST COMPOSITION: Scattered areas fibroglandular density. [...] Rodarte M.D. on 09/17/2021 at 13:13 Normal [facility] Formson 09-04-2021 Forms [id number] #1.00CD:127 Normal [facility] Patient Educationon 09-05-19 22 Patient Education [...] Take ove (more content not included)... Normal [facility] Physician Referralon 022 Physician Referral [id number] 0#1.00CD:127 Normal [facility] Urology Office/Clinic Noteon 09-04-2021 Urology [...] had hysterectomy about 10 yrs ago. previous MANAGEMENT ASSOCIATE advised her bladder had dropped a bit. [...] E&M of New Patient Moderate 45-59 Min 93640 Follow-up With When Contact Information pt will [...] Immunizations Vaccine Date Status Comments SARS-CoV-2 mRNA (tojohneran 5y-11y) vac - Not Given Postpone due to refusal [facility] Comment on above: Result Comment: Elec tronically Signed By: MICHAEL NUGENT PA-C\.br\Date and Time Signed: 09/04/21 09:42 EDT Ambulatory Visit Summaryon 0 09-03-2021 Ambulatory Visit Summary BARBARA BACA :1970 Visit Date:09/03/2021 Ambulatory Visit Instructions Your Diagnosis Stress incontinence Tests Performed Urnls Dip Stick Auto w/o Microscopy POC 72343 Your Care Team Attending Physician - MICHAEL [...] Urnls Dip Stick Auto w/o Microscopy POC 12891 (09/03/2021) Bilirubin Urine Dipstick - Negative Blood Urine Dipstick - Trace-intact Glucose Urine Dipstick - Negative Ketones Urine Dipstick - Negative Leukocytes Urine Dipstick - Negative Nitrite Urine Dipstick - Negative Protein Urine Dipstick - Negative Specific [place] Urine Dipstick - 1.020 Urine Appearance Urine Dipstick - Clear Urine Color Urine Dipstick - Yellow Urobilinogen Urine Dipstick - Normal 0.2-1 EU/dl pH Urine Dipstick - 5 Medications and Immunizations Administered Not Given SARS-CoV-2 mRNA (tozinameran 5y-11y) vac, Postpone due to refusal Allergies No Known Allergies No Known Medication Allergies Normal [facility] CBC AUTO DIFFon 08-02-2021 BASO # 0.0 103/ul Normal 0.0-0.1 [facility] Comment on above: Performed By: #### C BC #### [facility] [address] [address] [address] Dioni Mayorga Basophils/100 WBC (Bld) 0.4 % Normal 0.2-2.0 [facility] Comment on above: Performed By: #### C BC #### [facility] [address] [address] [address] Dioni Mayorga EO # 0.1 103/ul Normal 0.0-0.7 [facility] Comment on above: Performed By: #### C BC #### [facility] [address] [address] [address] Dioni Mayorga Eosinophils/100 WBC (Bld) 1.0 % Normal 0.9-7.0 [facility] Comment on above: Performed By: #### C BC #### [facility] [address] [address] [address] Dioni Mayorga Erythrocyte distribution width (RBC) [Ratio] 13.4 % Normal 11.0-15.0 [facility] Comment on above: Performed By: #### C BC #### [facility] [address] [address] [address] Dioni Mayorga Hematocrit (Bld) [Volume fraction] 45.2 % Normal 36.0-48.0 [facility] Comment on above: Performed By: #### C BC #### [facility] [address] [address] [address] Dioni Mayorga Hemoglobin (Bld) [Mass/Vol] 14.5 g/dL Normal 12.0-16.0 [facility] Comment on above: Performed By: #### C BC #### [facility] [address] [place] [address] Dr. Dioni Mayorga IG # 0.02 10e3/ul Normal 0.00-0.03 [facility] Comment on above: Performed By: #### C BC #### [facility] [address] [place] [address] Dr. Dioni Mayorga IG % 0.3 % Normal 0.0-0.5 [facility] Comment on above: Performed By: #### C BC #### [facility] [address] [place] [address] Dr. Dioni Mayorga LYMPH # 2.7 103/ul Normal 1.2-3.8 [facility] Comment on above: Performed By: #### C BC #### [facility] [address] [place] [address] Dr. Dioni Mayorga Lymphocytes/100 WBC (Bld) 38.7 % Normal 20.5-60.0 [facility] Comment on above: Performed By: #### C BC #### [facility] [address] [place] [address] Dr. Dioni Mayorga MANUAL DIFF REQ NO Normal [facility] Comment on above: Performed By: #### C BC #### [facility] [address] [place] [address] Dr. Dioni Mayorga MCH (RBC) [Entitic mass] 28.4 pg Normal 26.7-34.0 [facility] Comment on above: Performed By: #### C BC #### [facility] [address] [place] [address] Dr. Dioni Mayorga MCHC (RBC) [Mass/Vol] 32.1 g/dL Normal 29.9-35.2 [facility] Comment on above: Performed By: #### C BC #### [facility] [address] [place] [address] Dr. Dioni Mayorga MCV (RBC) [Entitic vol] 88.5 fL Normal 81.0-99.0 [facility] Comment on above: Performed By: #### C BC #### [facility] [address] [place] [address] Dr. Dioni Mayorga MONO # 0.4 103/ul Normal 0.3-0.8 [facility] Comment on above: Performed By: #### C BC #### [facility] [address] [place] [address] Dr. Dioni Mayorga Monocytes/100 WBC (Bld) 6.2 % Normal 1.7-12.0 [facility] Comment on above: Performed By: #### C BC #### [facility] [address] [place] [address] Dr. Dioni Mayorga NEUT # 3.7 103/ul Normal 1.4-6.5 [facility] Comment on above: Performed By: #### C BC #### [facility] [address] [place] [address] Dr. Dioni Mayorga Neutrophils/100 WBC (Bld) 53.4 % Normal 43.0-75.0 [facility] Comment on above: Performed By: #### C BC #### [facility] [address] [place] [address] Dr. Dioni Mayorga Platelet mean volume (Bld) [Entitic vol] 10.4 fL Normal 9.5-13.5 [facility] Comment on above: Performed By: #### C BC #### [facility] [address] [place] [address] Dr. Dioni Mayorga PLT 340 103/ul Normal 150-450 [facility] Comment on above: Performed By: #### C BC #### [facility] [address] [place] [address] Dr. Dioni Mayorga RBC 5.11 106/ul Normal 4.20-5.40 [facility] Comment on above: Performed By: #### C BC #### [facility] [address] [place] [address] Dr. Dioni Mayorga WBC 6.9 103/ul Normal 4.0-11.0 [facility] Comment on above: Performed By: #### C BC #### [facility] [address] [place] [address] Dr. Dioni Mayorga FREE T3on 08-02-2021 FREE T3 1.49 pg/mlL Critically low 2.18-3.98 [facility] Comment on above: Performed By: #### F T3, LIPID, CMP, T7, TSH #### [facility] [address] [address] [address] Dioni Mayorga FREE THYROXINE INDEX T7on FTI 2.77 Normal 1.30-4.50 [facility] Comment on above: Performed By: #### F T3, LIPID, CMP, T7, TSH #### [facility] [address] [address] [address] Dioni Mayorga T3U 36.0 % Normal 30.0-39.0 [facility] Comment on above: Performed By: #### F T3, LIPID, CMP, T7, TSH #### [facility] [address] [place] [address] Dr. Dioni Mayorga T4 [Mass/Vol] 7.70 ug/dL Normal 4.80-13.90 [facility] Comment on above: Performed By: #### F T3, LIPID, CMP, T7, TSH #### [facility] [address] [address] [address] Dioni Mayorga GLYCOHEMOGLOBIN A1Con 2021 ADA RECOMMENDATION SEE BELOW Normal [facility] Comment on above: Result Comment: ADA RECOMMENDED LIMIT 4.0 - 6.0 ADA THERAPEUTIC TARGET < 7.0 ACTION SUGGESTED > 7.0 Performed By: #### A 1C #### [facility] [address] [address] [address] Dioni Mayorga Glucose [Mass/Vol] 111 mg/dL Normal [facility] Comment on above: Performed By: #### A 1C #### [facility] [address] [place] [address] Dr. Dioni Mayorag HbA1c (Bld) [Mass fraction] 5.5 % Normal 4.5-6.2 [facility] Comment on above: Performed By: #### A 1C #### [facility] [address] [place] [address] Dr. Dioni Mayorga LIPID PROFILEon 08-02-2021 CHOL-HDL RATIO NORM SEE BELOW Normal [facility] Comment on above: Result Comment: 3.3 - 4.4 LOW RISK 4.4 - 7.1 AVERAGE RISK 7.1 - 11.0 MODERATE RISK >11.0 HIGH RISK Performed By: #### F T3, LIPID, CMP, T7, TSH #### [facility] [address] [address] [address] Dioni Mayorga Cholesterol [Mass/Vol] 211 mg/dL Critically high <=200 [facility] Comment on above: Performed By: #### F T3, LIPID, CMP, T7, TSH #### [facility] [address] [address] [address] Dioni Mayorga Cholesterol in HDL [Mass/Vol] 48 mg/dL Normal 40-60 [facility] Comment on above: Performed By: #### F T3, LIPID, CMP, T7, TSH #### [facility] [address] [address] [address] Dioni Mayorga Cholesterol in LDL [Mass/Vol] 148.6 mg/dL Normal [facility] Comment on above: Performed By: #### F T3, LIPID, CMP, T7, TSH #### [facility] [address] [address] [address] Dioni Mayorga Cholesterol.total/Ch olesterol in HDL [Mass ratio] 4.4 {ratio} Normal [facility] Comment on above: Performed By: #### F T3, LIPID, CMP, T7, TSH #### [facility] [address] [address] [address] Dioni Mayorga HDL NORMAL > or = 60 mg/dl - LOW CARDIOVASCULAR RISK <40 mg/dl - HIGH CARDIOVASCULAR RISK Normal [facility] Comment on above: Performed By: #### F T3, LIPID, CMP, T7, TSH #### [facility] [address] [address] [address] Dioni Mayorga LDL CALC NORMAL SEE BELOW Normal [facility] Comment on above: Result Comment: <100 mg/dl OPTIMAL 100 - 129 mg/dl NEAR OR ABOVE OPTIMAL 130 - 159 mg/dl BORDERLINE HIGH 160 - 189 mg/dl HIGH >190 mg/dl VERY HIGH Performed By: #### F T3, LIPID, CMP, T7, TSH #### [facility] [address] [address] [address] Dioni Mayorga Triglyceride [Mass/Vol] 72 mg/dL Normal <=150 [facility] Comment on above: Performed By: #### F T3, LIPID, CMP, T7, TSH #### [facility] [address] [address] [address] Dioni Mayorga VLDL CALC 14.4 mg/dL Normal [facility] Comment on above: Performed By: #### F T3, LIPID, CMP, T7, TSH #### [facility] [address] [address] [address] Dioni Mayorga PROF 14(COMP METB)on 022 Albumin [Mass/Vol] 3.5 g/dL Normal 3.4-5.0 [facility] Comment on above: Performed By: #### F T3, LIPID, CMP, T7, TSH #### [facility] [address] [address] [address] Dioni Mayorga Albumin/Globulin [Mass ratio] 1.0 {ratio} Normal [facility] Comment on above: Performed By: #### F T3, LIPID, CMP, T7, TSH #### [facility] [address] [address] [address] Dioni Mayorga ALP [Catalytic activity/Vol] 62 U/L Normal 46-116 [facility] Comment on above: Performed By: #### F T3, LIPID, CMP, T7, TSH #### [facility] [address] [address] [address] Dioni Mayorga ALT [Catalytic activity/Vol] 20 U/L Normal 14-59 [facility] Comment on above: Performed By: #### F T3, LIPID, CMP, T7, TSH #### [facility] [address] [address] [address] Dioni Mayorga Anion gap [Moles/Vol] 14.0 mmol/L Normal [facility] Comment on above: Performed By: #### F T3, LIPID, CMP, T7, TSH #### [facility] [address] [address] [address] Dioni Mayorga AST [Catalytic activity/Vol] 12 U/L Critically low 15-37 [facility] Comment on above: Performed By: #### F T3, LIPID, CMP, T7, TSH #### [facility] [address] [address] [address] Dioni Mayorga Bilirubin [Mass/Vol] 0.4 mg/dL Normal 0.2-1.0 [facility] Comment on above: Performed By: #### F T3, LIPID, CMP, T7, TSH #### [facility] [address] [address] [address] Dioni Mayorga Calcium [Mass/Vol] 8.7 mg/dL Normal 8.5-10.1 [facility] Comment on above: Performed By: #### F T3, LIPID, CMP, T7, TSH #### [facility] [address] [place] [address] Dr. Dioni Mayorga Chloride [Moles/Vol] 105 mmol/L Normal 98-107 [facility] Comment on above: Performed By: #### F T3, LIPID, CMP, T7, TSH #### [facility] [address] [place] [address] Dr. Dioni Mayorga CO2 [Moles/Vol] 26.4 mmol/L Normal 21.0-32.0 [facility] Comment on above: Performed By: #### F T3, LIPID, CMP, T7, TSH #### [facility] [address] [address] [address] Dioni Mayorga Creatinine [Mass/Vol] 0.83 mg/dL Normal 0.55-1.02 [facility] Comment on above: Performed By: #### F T3, LIPID, CMP, T7, TSH #### [facility] [address] [place] [address] Dr. Dioni Mayorga EGFR-AF ZAMBIAN >60 Normal >=60 [facility] Comment on above: Performed By: #### F T3, LIPID, CMP, T7, TSH #### [facility] [address] [place] [address] Dr. Dioni Mayorga EGFR-NON AF ZAMBIAN >60 Normal >=60 [facility] Comment on above: Performed By: #### F T3, LIPID, CMP, T7, TSH #### [facility] [address] [address] [address] Dioni Mayorga Globulin (S) [Mass/Vol] 3.5 g/dL Normal [facility] Comment on above: Performed By: #### F T3, LIPID, CMP, T7, TSH #### [facility] [address] [address] [address] Dioni Mayorga Glucose [Mass/Vol] 78 mg/dL Normal 74-106 [facility] Comment on above: Performed By: #### F T3, LIPID, CMP, T7, TSH #### [facility] [address] [place] [address] Dr. Dioni Mayorga Potassium [Moles/Vol] 4.4 mmol/L Normal 3.5-5.1 [facility] Comment on above: Performed By: #### F T3, LIPID, CMP, T7, TSH #### [facility] [address] [address] [address] Dioni Mayorga Protein [Mass/Vol] 7.0 g/dL Normal 6.4-8.2 [facility] Comment on above: Performed By: #### F T3, LIPID, CMP, T7, TSH #### [facility] [address] [place] [address] Dr. Dioni Mayorga Sodium [Moles/Vol] 141 mmol/L Normal 136-145 [facility] Comment on above: Performed By: #### F T3, LIPID, CMP, T7, TSH #### [facility] [address] [place] [address] Dr. Dioni Mayorga Urea nitrogen [Mass/Vol] 16.0 mg/dL Normal 7.0-18.0 [facility] Comment on above: Performed By: #### F T3, LIPID, CMP, T7, TSH #### [facility] [address] [address] [address] Dioni Mayorga Urea nitrogen/Creatinine [Mass ratio] 19.3 mg/mg Normal [facility] Comment on above: Performed By: #### F T3, LIPID, CMP, T7, TSH #### [facility] [address] [place], [place] [address] Dr. Dioni Mayorga TSHon 08-02-2021 TSH 1.339 uIU/mL Normal 0.358-3.740 [facility] Comment on above: Performed By: #### F T3, LIPID, CMP, T7, TSH #### [facility] [address] [place], [place] [address] Dr. Dioni Mayorga Vital Signs Date Time Vital Sign Value Performing Clinician Faci lity 09-03-2021 08:51-0400 Blood Pressure Location MICHAEL SERNARY [facility] 09-03-2021 08:51-0400 Diastolic blood pressure 96 mm[Hg] MICHAEL NUGENT [facility] 09-03-2021 08:51-0400 Heart rate 106 /min MICHAEL NUGENT [facility] 09-03-2021 08:51-0400 Systolic blood pressure 138 mm[Hg] MICHAEL NUGENT [facility] Encounters Encounter Date Encounter Type Care Provider Facility Start: 05-17-2023 End: 05-18-2023 ambulatory Harish Cannon MD Facility:[facility] Start: 04-19-2023 End: 04-20-2023 ambulatory Harish Cannon MD Facility:[facility] Start: 01-11-2023 End: 01-12-2023 ambulatory Harish Cannon MD Facility:[facility] Start: 12-07-2022 End: 12-08-2022 ambulatory Andmarie Cannon MD Facility[facility] Start: 11-23-2022 End: 11-24-2022 ambulatory Harish Cannon MD Facility:[facility] Start: 11-02-2022 End: 11-03-2022 ambulatory Harish Cannon MD Facility:[facility] Start: 03-02-2022 End: 03-02-2022 ambulatory SALVADOR GROSS Facility:[facility] Start: 12-15-2021 End: 12-15-2021 ambulatory SALVADOR GROSS Facility:[facility] Start: 12-09-2021 End: 12-09-2021 ambulatory SALVADOR GROSS Facility:[facility] Start: 09-17-2021 End: 09-18-[address] MONIKA MATTHEWS Facility:[facility] Start: 09-03-[address] MONIKA MATTHEWS Facility :[facility] Start: 09-03-2021 End: 09-03-2021 Patient encounter procedure MICHAEL NUGENT [facility] Start: 08-05-2021 Encounter for genera l adult medical examination without abnormal findings DR MONIKA MATTHEWS [facility] Start: 08-02-2021 End: 08-03-[address] MONIKA MATTHEWS Facility:[facility] Start: 08-02-2021 End: 08-03-2021 Encounter for general adult medical examination without abnormal findings DR MONIKA MATTHEWS Facility:[facility] Procedures Date Procedure Procedure Detail Performing Clinician Hysterectomy MICHAEL NUGENT Immunizations Immunization Date Immunization Notes Care Provider Fa cility NEGATED: Highlighted row has not occurred!09-03-2021 SARS-CoV-2 mRNA (tozinameran 5y-11y) vaccine MICHAEL NUGENT [facility] Payers Date Payer Category Payer Unknown [id number] 2022 Unknown 2019 Unknown [id number] 1970 Unknown [id number] 2.16.84 [id number] 1970 Unknown [id number] 2.16.84 [id number] 1970 Unknown [id number] 2.16.84 [id number] 1970 Unknown [id number] 2.16.84 [id number] 1970 Unknown [id number] 2.16.84 [id number] 1970 Unknown [id number] 2.16.84 [id number] 1970 Unknown [id number] 2.16. [id number] 1970 Unknown [id number] 2.16. [id number] 1970 Unknown [id number] 2.16. [id number] 1970 Unknown [id number] 2.16. [id number] 1972 Unknown [id number] 2.16. [id number] 1972 Unknown [id number] 2.16. [id number] Social History Date Type Detail Facility Start: 09-03-2021 Tobacco smoking status Never s moked tobacco (finding) [facility] Tobacco smoking status Never [facility] Sex Assigned At Female [facility] Functional Status Date Assessment Result Facility 09-03-2021 Functional Status N/A [facility] Discharge instructions 09-03-2021 Note Date & [...] nerve stimulation). For women, using a director biomedical engineering to prevent urine leaks. This is a [...] right after experiencing incontinence. General instructions Take qqds-yhi-gqxziwf and prescription medicines only as told by [...] 03/11/2005 Document Revised: 02/11/2018 Document Reviewed: 05/13/2017 [employer] Patient Education 2020 [employer] Follow Up Care 08/06/2021 08:10:07 With:pt will call once she decides how she would like to proceed Address:Unknown When: Unknown [facility] Evaluation + Plan note Note Date & Type Note Facility Evaluation + Plan note Future Appointments Appointment Date:09/17/2021 08:30:00 AM Scheduled Provider: Location:[facility] Appointment Type:URO Nurse Visit [facility] Hospital course Narrative Note Date & Type Note Facility Hospital course Narrative No data available for this section [facility] Progress note Note Date & Type Note Facility Progress note No data available for this section [facility] Summary Purpose Family History No Family History Records FoundNo Family History Records FoundNo Family History Records Found Advance Directives No Advanced Directives Records FoundNo Advanced Directives Records FoundNo Advanced Directives Records Found Additional Source Comments Care Team (unrecognized sect ion and content) Personnel Name: Monika Matthews MD Address: [address] [place] [address] INFORMATION SOURCE (unrecogn ized section and content) DATE CREATED AUTHOR 09/18/2021 [facility] DATE CREATED AUTHOR AUTHOR'S ORGANIZ ATION 03/02/2022 [facility] DATE CREATED AUTHOR AUTHOR'S ORGANIZ ATION 05/25/2023 [facility] FOR RECORDS PERTAINING TO PATIENTS [...] THE PRIMARY CLINICAL RECORDS. [facility] [employer] [facility] provides no warranty or guarantee of the accuracy or completeness of information in this document.
--- NOTE | 2023-05-27 07:53 | P.CN_ITS ---
Consult Note: HPI Data of Consult Patient: known to practice within the last 3 years Consult date: 04/19/23 Requesting Physician: Therese Montelongo NP Primary Care Provider: Romero Dykes MD Consult Narrative Reason for consult: Right lower extremity pain Narrative: 52yof who presents for assessment of chronic low back pain. Patient previously evaluated by Dr Cannon and MRI imaging was consistent with lumbar radiculopathy/lumbar stenosis with NC. Patient continues to engage in HEP greater than 6 weeks. Patient has found benefit to tizanidine 4-8mg HS and diclofenac 100mg ER. Patient most recently underwent bilateral L5-S1 TFESI with 90% improvement overall, continues to have moderate to severe cramps in the nig ht in right leg. Pain today 0/10 without radiation. cc:: CC: Therese Montelnogo NP Review of Systems ROS Status of ROS 10 or more systems reviewed and unremark able except as noted in history and below PFSH PFS Medical History Low back ache ?M54.50 - Low back pain, unspecified (ICD-10) Obesity ?E66.9 - Obesity, unspecified (ICD-10) Surgical History H/O tooth extraction ?K08.409 - Partial loss of teeth, unspecified cause, unspecified class (ICD- 10) H/O: hysterectomy ?Z90.710 - Acquired absence of both cervix and uterus (ICD-10) Social History Smoking status: Never smoker Meds Home Medications and Allergies Home Medications ?Medication ?Instructions ?Recorded ?Confirmed ?Type ibuprofen 200 mg capsule 800 mg PO Q12H PRN pain 11/02/22 05/17/23 History loratadine-pseudoephedrine ER 10 1 tab PO DAILY 11/02/22 05/17/23 History mg-240 mg tablet,extended [id number] (Claritin-D 24 Hour) tizanidine 4 mg tablet 4 mg PO BID PRN muscle spasticity 12/02/22 05/17/23 Rx #45 tabs diazepam 10 mg tablet mg 01/11/23 History benzonatate 100 mg capsule 100 mg PO TID PRN cough #14 caps 04/16/23 05/17/23 Rx prednisone 20 mg tablet 40 mg (2 x 20 mg) PO BID 5 days 04/16/23 05/17/23 Rx #20 tabs Allergies Allergy/AdvReac Type Severity Reaction Status Date / Time No Known Drug Allergies Allergy Verified 01/11/23 08:48 Exam Constitutional Documenting provider has reviewed patient's vital signs: yes Common normals: no apparent distress, oriented x3, healthy appearing, alert and well nourished General appearance: cooperative Nutritional appearance: obese HENMT Common normals: normocephalic, hearing grossly normal bilaterally and moist oral mucous membranes Head and scalp: normocephalic Eye Common normals: PERRL Pupil: PERRL Neck & C-Spine Common normals: full ROM General: normal visual inspection Chest Common normals: inspection of chest normal Respiratory Common normals: normal respiratory effort, no retractions and no use of accessory muscles Back & Pelvis Common normals: no CVA tenderness Lumbar spine/lower back: normal to inspection, lumbar ROM normal and straight leg raise negative bilaterally Other: strength 5/5 BLE sensation intact Extremity Common normals: normal to inspection and full ROM Neuro Common normals: oriented x3, CN's II-XII intact bilaterally, moves all extremities, no focal motor deficits, no sensory deficits noted and deep tendon reflexes 2+ bilaterally Sensorium/orientation: alert Motor exam: strength 5/5 throughout and no movement abnormalities noted Psych Common normals: mental status grossly normal, thought process normal, cooperative, affect normal, speech normal and activity/motor behavior normal Speech: normal speech Thought process: normal thought process Results Additional Findings Additional findings: If on a controlled substance or opioids, I have checked an OARRS report on this patient and there are no aberrancies noted in the prescribing history.??If on a controlled substance or opioid a drug screen was completed and reviewed within the last year, and if there has not been a drug screen completed we ordered one today to monitor higher risk, state monitored pain medication use. As part of providing excellent, safe, comprehensive care, the following was completed at our patient's visit: 1. A medication reconciliation and review to ensure accurate knowledge of current/active medications, including asking our patients to inform us about any losm-agr-ptymjuk medications or herbal remedies/nutritional supplements/alternative remedies. 2. A review to specifically ensure our patients have had annual screening for screening for depression, screening for tobacco use, and screening for unhealthy alcohol use. For concerning screenings had a discussion with the patient, provided patient education, and recommended follow-up with primary care provider when appropriate. If patient noted with a risk of falling, they received education on strength, gait, and balance training to prevent future risk of falling. Assessment and Plan Assessment and Plan (1) Lumbar radiculopathy: (2) Lumbar stenosis without neurogenic claudication: Plan continue tizanidine 4-8mg HS PRN discussed decreasing diclofenac, patient finishing 100mg ER capsules and not refilling due to cost. Patient advised to utilize PRN diclofenac 50mg mild to moderate pain. risks vs benefits and senior care side effects discussed. denies SE at this time continue PRN TENS, finds benefit continue HEP as tolerated f/u 3 months, sooner if needed
== END 2023-05-27 07:42 | disposition home or self-care (01) ==
LOC: PM 07:42
PROVIDERS: PCP Family Medicine; Visit Provider Nurse Practitioner
DX: M54.16 Radiculopathy, lumbar region (principal); M48.062 Spinal stenosis, lumbar region with neurogenic claudication
CPT/HCPCS: G0463

== ENCOUNTER 2023-08-02 09:37 | Outpatient (OUT) | payer BC, SELFPAY ==
[2023-08-02 10:07] LABS: Basophils Percent Auto 0.4 % (0.2-2.0); Eosinophils Absolute Auto 0.1 10^3/uL (0.0-0.7); Eosinophils Percent Auto 0.5 % (0.9-7.0); Hematocrit 43.5 % (36.0-48.0); Hemoglobin 13.5 g/dL (12.0-16.0); Immature Granulocytes Abs Auto 0.04 10^3/uL (0.00-0.03); Immature Granulocytes Pct Auto 0.4 % (0.0-0.5); Lymphocytes Absolute Auto 3.3 10^3/uL (1.2-3.8); Lymphocytes Percent Auto 30.8 % (20.5-60.0); Mean Corpuscular Hemoglobin 28.3 pg (26.7-34.0); Mean Corpuscular Volume 91.2 fL (81.0-99.0); Mean Platelet Volume 10.6 fL (9.5-13.5); Monocytes Absolute Auto 0.6 10^3/uL (0.3-0.8); Monocytes Percent Auto 5.9 % (1.7-12.0); Neutrophils Absolute Auto 6.6 10^3/uL (1.4-6.5); Platelet Count 392 10^3/uL (150-450); Red Blood Count 4.77 10^6/uL (4.20-5.40); Red Cell Distribution Width 13.2 % (11.0-15.0); White Blood Count 10.6 10^3/uL (4.0-11.0)
[2023-08-02 10:24] LABS: Estimated Average Glucose 108 mg/dL; Glycohemoglobin A1C 5.4 % (4.5-6.2)
[2023-08-02 10:33] LABS: Alanine Aminotransferase 29 U/L (14-59); Albumin Globulin Ratio 0.9; Albumin Level 3.4 g/dL (3.4-5.0); Alkaline Phosphatase 77 U/L (46-116); Anion Gap 12.6; Aspartate Amino Transferase 15 U/L (15-37); BUN Creatinine Ratio 14.5; Bilirubin Total 0.5 mg/dL (0.2-1.0); Calcium 8.7 mg/dL (8.5-10.1); Carbon Dioxide 28.7 mmol/L (21.0-32.0); Chloride 103 mmol/L (98-107); Chol HDL Ratio 3.6; Cholesterol 232 mg/dL (<=200); Estimated GFR (African America >60 (>=60); Estimated GFR (Non-African Ame >60 (>=60); Globulin 3.7 g/dL; Glucose 99 mg/dL (74-106); HDL Cholesterol 65 mg/dL (40-60); Potassium 4.3 mmol/L (3.5-5.1); Sodium 140 mmol/L (136-145); Thyroid Stimulating Hormone 2.153 uIU/mL (0.358-3.740); Total Protein 7.1 g/dL (6.4-8.2); Triglycerides 95 mg/dL (<=150)
== END 2023-08-02 09:38 | disposition home or self-care (01) ==
LOC: LAB 09:39
PROVIDERS: PCP Family Medicine; Visit Provider Family Medicine
DX: Z00.00 Encounter for general adult medical examination without abnormal findings (principal)
CPT/HCPCS: 36415; 80053; 80061; 83036; 84443; 85025

== ENCOUNTER 2023-08-26 07:43 | Outpatient (OUT) | payer BC, SELFPAY ==
--- NOTE | 2023-08-26 07:57 | PM.CN ---
Consult Note: HPI Data of Consult Patient: known to practice within the last 3 years Consult date: 04/19/23 Requesting Physician: Therese Montelongo NP Primary Care Provider: Romero Dykes MD Consult Narrative Reason for consult: chronic low back pain Narrative: 52yof who presents for assessment of chronic low back pain. Patient previously evaluated by Dr Cannon and MRI imaging was consistent with lumbar radiculopathy/lumbar stenosis with NC. Patient continues to engage in HEP greater than 6 weeks. Patient has found benefit to tizanidine 4-8mg HS and diclofenac 75mg once daily. Patient most recently underwent bilateral L5-S1 TFESI with >50% improvement in pain and functional ability greater than 3 months. Has noticed increase in muscle spasms and low back pain over the last few weeks, has not been utilizing TENS. cc:: CC: Therese Montelongo NP Review of Systems ROS Status of ROS 10 or more systems reviewed and unremarkable except as noted in history and below Musculoskeletal Reports: back pain PFSH PFSH Medical History Low back ache ?M54.50 - Low back pain, unspecified (ICD-10) Obesity ?E66.9 - Obesity, unspecified (ICD-10) Surgical History H/O tooth extraction ?K08.409 - Partial loss of teeth, unspecified cause, unspecified class (ICD-10) H/O: hysterectomy ?Z90.710 - Acquired absence of both cervix and uterus (ICD-10) Social History Smoking status: Never smoker Meds Home Medications and Allergies Home Medications ?Medication ?Instructions ?Recorded ?Confirmed ?Type ibuprofen 200 mg capsule 800 mg PO Q12H PRN pain 11/02/22 05/17/23 History loratadine-pseudoephedrine ER 10 1 tab PO DAILY 11/02/22 05/17/23 History mg-240 mg tablet,extended [id number] (Claritin-D 24 Hour) tizanidine 4 mg tablet 4 mg PO BID PRN muscle spasticity 12/02/22 05/17/23 Rx #45 tabs diazepam 10 mg tablet mg 01/11/23 History benzonatate 100 mg capsule 100 mg PO TID PRN cough #14 caps 04/16/23 05/17/23 Rx prednisone 20 mg tablet 40 mg (2 x 20 mg) PO BID 5 days 04/16/23 05/17/23 Rx #20 tabs Allergies Allergy/AdvReac Type Severity Reaction Status Date / Time No Known Drug Allergies Allergy Verified 01/11/23 08:48 Exam Constitutional Documenting provider has reviewed patient's vital signs: yes Common normals: no apparent distress, oriented x3, healthy appearing, alert and well nourished General appearance: cooperative Nutritional appearance: obese HENMT Common normals: normocephalic, hearing grossly normal bilaterally and moist oral mucous membranes Head and scalp: normocephalic Eye Common normals: PERRL Pupil: PERRL Neck & C-Spine Common normals: full ROM General: normal visual inspection Chest Common normals: inspection of chest normal Respiratory Common normals: normal respiratory effort, no retractions and no use of accessory muscles Back & Pelvis Common normals: no CVA tenderness Lumbar spine/lower back: pain with ROM, paraspinal muscle tenderness, paraspinal muscle spasm and straight leg raise negative bilaterally Other: strength 5/5 BLE sensation intact increase in low back pain, heaviness and cramping with standing and walking. improved with sitting trigger points noted below Back image (female): 1. 2. 3. 4. Extremity Common normals: normal to inspection and full ROM Neuro Common normals: oriented x3, CN's II-XII intact bilaterally, moves all extremities, no focal motor deficits, no sensory deficits noted and deep tendon reflexes 2+ bilaterally Sensorium/orientation: alert Motor exam: strength 5/5 throughout and no movement abnormalities noted Psych Common normals: mental status grossly normal, thought process normal, cooperative, affect normal, speech normal and activity/motor behavior normal Speech: normal speech Thought process: normal thought process Results Additional Findings Additional findings: If on a controlled substance or opioids, I have checked an OARRS report on this patient and there are no aberrancies noted in the prescribing history.??If on a controlled substance or opioid a drug screen was completed and reviewed within the last year, and if there has not been a drug screen completed we ordered one today to monitor higher risk, state monitored pain medication use. As part of providing excellent, safe, comprehensive care, the following was completed at our patient's visit: 1. A medication reconciliation and review to ensure accurate knowledge of current/active medications, including asking our patients to inform us about any [id number] medications or herbal remedies/nutritional supplements/alternative remedies. 2. A review to specifically ensure our patients have had annual screening for screening for depression, screening for tobacco use, and screening for unhealthy alcohol use. For concerning screenings had a discussion with the patient, provided patient education, and recommended follow-up with primary care provider when appropriate. If patient noted with a risk of falling, they received education on strength, gait, and balance training to prevent future risk of falling. Assessment and Plan Assessment and Plan (1) Lumbar radiculopathy: (2) Lumbar stenosis without neurogenic claudication: (3) Myalgia, other site: Assessment and Plan: OPERATION:?Trigger Point Injection. ANESTHESIA:?Local COMPLICATIONS:?None. The procedure risks, hazards and alternatives were discussed with the patient and a proper consent was obtained. The area over the myofascial spasm was prepped with alcohol utilizing sterile technique. After isolating it between two palpating fingertips a 25-gauge 5 needle was placed in the center of the myofascial spasms and a negative aspiration was performed. Then 1 cc of 0.25% bupivicaine/ 2%lidocaine/10mg triamcinilone was injected into each trigger point, x4. The patient tolerated the procedure well without any apparent difficulties or complications. They were feeling relief by the time the block had set. (4) Myofascial pain syndrome: (5) Muscle spasm: Plan repeat bilateral L5-S1 TFESI under fluoroscopy, previous bilateral L5-S1 TFESI provided >50% improvement for 3 months continue tizanidine 4-8mg HS PRN diclofenac 50-100mg BID PRN pain, risks vs benefits and [employer] supervisor side effects discussed. denies SE at this time restart PRN TENS, previously found benefit TPI performed as noted above continue HEP as tolerated f/u 2 weeks after [facility]
== END 2023-08-26 07:44 | disposition home or self-care (01) ==
LOC: PM 07:43
PROVIDERS: PCP Family Medicine; Visit Provider Nurse Practitioner
DX: M54.16 Radiculopathy, lumbar region (principal); M48.062 Spinal stenosis, lumbar region with neurogenic claudication; M79.18 Myalgia, other site; M62.838 Other muscle spasm
CPT/HCPCS: 20552; J0665; J3301

== ENCOUNTER 2023-09-13 07:02 | Day surgery (SDC) | payer BC, SELFPAY ==
[2023-09-13 07:09] VITALS: BP 134/89; PULSE 62; TEMP 36.2; O2SAT 99
--- OUTSIDE RECORDS SUMMARY | 2023-09-13 07:09 | XMS_ITS | CCD ---
Author Organization [facility] CliniSyme Care Team Providers Care X Ray Equipment Mechanic Name Role Phone Monika Matthews Primary Care Physician [phone] DR MONIKA MATTHEWS Admitting Unavailable CASSIE, DR FRANK Attending Unavailable CASSIE, DR FRANK Primary Care Unavailable CASSIE, DR FRANK Consulting Unavailable ZIEBER, DR ANUPAM Bailey Consulting Unavailable CASSIE, DR FRANK Admitting Unavailable CASSIE, DR FRANK Attending Unavailable CASSIE, DR FRANK Primary Care Unavailable GINNY, SALVADOR Admitting Unavailable GINNY, SALVADOR Attending Unavailable CASSIE, DR FRANK Primary Care Unavailable IGNNY, SALVADOR Consulting Unavailable GINNY, SALVADOR Admitting Unavailable [...] Unavailable Gihermila GARNICA, Harish Olivier Attending Unavailable Giedraitis , Harish Olivier Attending Unavailable Gieditis , Andmarie Olivier Attending Unavailable Gieditis , [...] Value Interpretation Reference Range Facility [facility]on 02-15 SARS-CoV-2 (COVID-19) RNA YAMILET+probe Ql (Unsp spec) Not detected Normal NOT DETECTED [facility] Comment on above: Result Comment: When [...] for this test is supported by the Vocational Rehabilitation Administrator of Health and Human Service's declaration that [...] be used). Performed By: #### C VDTB ####[facility] [address] [address]Dr. Dioni Mayorga INFLUENZA A AND B AGon 03-02 [facility] SEE BELOW Normal [facility] Comment on above: Result Comment: Nega tive for Flu A protein angiten. Infection due to Flu A cannot be ruled out. Flu A angiten in the sample may be below the detection limit of the test. Performed By: #### I NFLUAB #### [facility] [address] [place] [address] Dr. Dioni Mayorga [facility] Normal [facility] Comment on above: Result Comment: Nega tive for Flu B protein antigen. Infection due to Flu B cannot be ruled out. Flu B antigen in the sample may be below the detection limit of the test. Performed By: #### I NFLUAB #### [facility] [address] [address] [address] Dioni Mayorga INFLUENZA A AG Negative Normal NEGATIVE SEE COMMENT [facility] Comment on above: Performed By: #### I NFLUAB #### [facility] [address] [address] [address] Dioni Mayorga INFLUENZA B AG Negative Normal NEGATIVE SEE COMMENT [facility] Comment on above: Performed By: #### I NFLUAB #### [facility] [address] [address] [address] Dioni Mayorga ASYMPTOMATIC COVID-19 ANTIGE Non 12-15-2021 EUA Statement SEE BELOW Normal [facility] Comment on above: Result Comment: This [...] sooner. Performed By: #### C VDAGA #### [facility] [address] [place] [address] Dr. Dioni Mayorga SARS-CoV-2 (COVID-19) RNA YAMILET+probe Ql (Unsp spec) Negative Normal NEGATIVE [facility] Comment on above: Result Comment: Nega tive results are presumptive. They do not preclude infection and should not be used as the sole basis for treatment decisions. Additional confirmatory testing by a molecular method should be considered. Performed By: #### C VDAGA #### [facility] [address] [place] [address] Dr. Dioni Mayorga Covid-19 PCR (CVDTB)on 11-16 SARS-CoV-2 (COVID-19) RNA YAMILET+probe Ql (Unsp spec) Detected Critically abnormal NOT DETECTED [facility] Comment on above: Result Comment: This test is not yet approved or cleared by the [place] FDA. When there are no FDA-approved or cleared tests available, and other criteria are met, FDA can make tests available under an emergency access mechanism called an Emergency Use Authorization (EUA). The EUA for this test is supported by the Vocational Rehabilitation Administrator of Health and Human Service's declaration that [...] longer be used). Performed By: #### [facility] ####[facility] [address] [place], [place] [address]Pd. Dioni Mukesh MG MAMM SCREEN 3D DUSTIN CADon 09-17-2021 MG MAMM SCREEN 3D DUSTIN CAD Patient: BARBARA BACA Exam Date: 09/17/2021 : 1970 Gender:F Ordering : DR MONIKA MATTHEWS . Admission #: [id number] Family : Order #: [id number] CLICK HERE TO VIEW EXAM RADIOLOGY REPORT PROCEDURE: MAMMOGRAM SCREENING 3D BILATERAL CAD COMPARISON: MG MAMM SCREEN 3D DUSTIN CAD, 05/08/2020. MAMMO POST BIOPSY RIGHT, 01/04/2018. INDICATIONS: Screening mammography Calculator Name NCI Breast Cancer Risk Assessment Tool 5 Year Breast Cancer Risk 1.00% Lifetime Breast Cancer Risk 9.60% Personal Breast Cancer No Personal Ovarian Cancer No Treatments None Family Cancers None LOCATION: [facility] BREAST COMPOSITION: Scattered areas fibroglandular density. [...] Rodarte M.D. on 09/17/2021 at 13:13 Normal [facility] Formson 09-04-2021 Forms [id number] #1.00CD:127 Normal [facility] Patient Educationon 09-05-19 22 Patient Education [...] (more content not included)... Normal [facility] Physician Referralon 022 Physician Referral [id number]#1.00CD:127 Normal [facility] Urology Office/Clinic Noteon 09-04-2021 Urology Office/Clinic Note [...] had hysterectomy about 10 yrs ago. 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 [...] E&M of New Patient Moderate 45-59 Min 70259 Follow-up With When Contact Information pt will [...] Immunizations Vaccine Date Status Comments SARS-CoV-2 mRNA (tocamnameran 5y-11y) vac - Not Given Postpone due to refusal Normal [facility] Comment on above: Result Comment: Elec tronically Signed By: MICHAEL NUGENT PA-C\.br\Date and Time Signed: 09/04/21 09:42 EDT Ambulatory Visit Summaryon 0 09-03-2021 Ambulatory Visit Summary BARBARA BACA :1970 Visit Date:09/03/2021 Ambulatory Visit Instructions Your Diagnosis Stress incontinence Tests Performed Urnls Dip Stick Auto w/o Microscopy POC 94769 Your Care Team Attending Physician - MICHAEL [...] Urnls Dip Stick Auto w/o Microscopy POC 51992 (09/03/2021) Bilirubin Urine Dipstick - Negative Blood Urine Dipstick - Trace-intact Glucose Urine Dipstick - Negative Ketones Urine Dipstick - Negative Leukocytes Urine Dipstick - Negative Nitrite Urine Dipstick - Negative Protein Urine Dipstick - Negative Specific [place] Urine Dipstick - 1.020 Urine Appearance Urine Dipstick - Clear Urine Color Urine Dipstick - Yellow Urobilinogen Urine Dipstick - Normal 0.2-1 EU/dl pH Urine Dipstick - 5 Medications and Immunizations Administered Not Given SARS-CoV-2 mRNA (tozinameran 5y-11y) vac, Postpone due to refusal Allergies No Known Allergies No Known Medication Allergies Normal [facility] CBC AUTO DIFFon 08-02-2021 BASO # 0.0 103/ul Normal 0.0-0.1 [facility] Comment on above: Performed By: #### C BC #### [facility] [address] [address] [address] Dioni Mayorga Basophils/100 WBC (Bld) 0.4 % Normal 0.2-2.0 [facility] Comment on above: Performed By: #### C BC #### [facility] [address] [address] [address] Dioni Mayorga EO # 0.1 103/ul Normal 0.0-0.7 [facility] Comment on above: Performed By: #### C BC #### [facility] [address] [address] [address] Dioni Mayorga Eosinophils/100 WBC (Bld) 1.0 % Normal 0.9-7.0 [facility] Comment on above: Performed By: #### C BC #### [facility] [address] [address] [address] Dioni Mayorga Erythrocyte distribution width (RBC) [Ratio] 13.4 % Normal 11.0-15.0 [facility] Comment on above: Performed By: #### C BC #### [facility] [address] [address] [address] Dioni Mayorga Hematocrit (Bld) [Volume fraction] 45.2 % Normal 36.0-48.0 [facility] Comment on above: Performed By: #### C BC #### [facility] [address] [address] [address] Dioni Mayorga Hemoglobin (Bld) [Mass/Vol] 14.5 g/dL Normal 12.0-16.0 [facility] Comment on above: Performed By: #### C BC #### [facility] [address] [place] [address] Dr. Dioni Mayorga IG # 0.02 10e3/ul Normal 0.00-0.03 [facility] Comment on above: Performed By: #### C BC #### [facility] [address] [place] [address] Dr. Dioni Mayorga IG % 0.3 % Normal 0.0-0.5 [facility] Comment on above: Performed By: #### C BC #### [facility] [address] [place] [address] Dr. Dioni Mayorga LYMPH # 2.7 103/ul Normal 1.2-3.8 [facility] Comment on above: Performed By: #### C BC #### [facility] [address] [place] [address] Dr. Dioni Mayorga Lymphocytes/100 WBC (Bld) 38.7 % Normal 20.5-60.0 [facility] Comment on above: Performed By: #### C BC #### [facility] [address] [place] [address] Dr. Dioni Mayorga MANUAL DIFF REQ NO Normal [facility] Comment on above: Performed By: #### C BC #### [facility] [address] [place] [address] Dr. Dioni Mayorga MCH (RBC) [Entitic mass] 28.4 pg Normal 26.7-34.0 [facility] Comment on above: Performed By: #### C BC #### [facility] [address] [place] [address] Dr. Dioni Mayorga MCHC (RBC) [Mass/Vol] 32.1 g/dL Normal 29.9-35.2 [facility] Comment on above: Performed By: #### C BC #### [facility] [address] [place] [address] Dr. Dioni Mayorga MCV (RBC) [Entitic vol] 88.5 fL Normal 81.0-99.0 [facility] Comment on above: Performed By: #### C BC #### [facility] [address] [place] [address] Dr. Dioni Mayorga MONO # 0.4 103/ul Normal 0.3-0.8 [facility] Comment on above: Performed By: #### C BC #### [facility] [address] [place] [address] Dr. Dioni Mayorga Monocytes/100 WBC (Bld) 6.2 % Normal 1.7-12.0 [facility] Comment on above: Performed By: #### C BC #### [facility] [address] [place] [address] Dr. Dioni Mayorga NEUT # 3.7 103/ul Normal 1.4-6.5 [facility] Comment on above: Performed By: #### C BC #### [facility] [address] [place] [address] Dr. Dioni Mayorga Neutrophils/100 WBC (Bld) 53.4 % Normal 43.0-75.0 [facility] Comment on above: Performed By: #### C BC #### [facility] [address] [place] [address] Dr. Dioni Mayorga Platelet mean volume (Bld) [Entitic vol] 10.4 fL Normal 9.5-13.5 [facility] Comment on above: Performed By: #### C BC #### [facility] [address] [place] [address] Dr. Dioni Mayorga PLT 340 103/ul Normal 150-450 [facility] Comment on above: Performed By: #### C BC #### [facility] [address] [place] [address] Dr. Dioni Mayorga RBC 5.11 106/ul Normal 4.20-5.40 [facility] [place] [facility] Comment on above: Performed By: #### C BC #### [facility] [address] [place] [address] Dr. Dioni Mayorga WBC 6.9 103/ul Normal 4.0-11.0 [facility] Comment on above: Performed By: #### C BC #### [facility] [address] [place] [address] Dr. Dioni Mayorga FREE T3on 08-02-2021 FREE T3 1.49 pg/mlL Critically low 2.18-3.98 [facility] Comment on above: Performed By: #### F T3, LIPID, CMP, T7, TSH #### [facility] [address] [address] [address] Dioni Mayorga FREE THYROXINE INDEX T7on FTI 2.77 Normal 1.30-4.50 [facility] Comment on above: Performed By: #### F T3, LIPID, CMP, T7, TSH #### [facility] [address] [address] [address] Dioni Mayorga T3U 36.0 % Normal 30.0-39.0 [facility] Comment on above: Performed By: #### F T3, LIPID, CMP, T7, TSH #### [facility] [address] [place] [address] Dr. Dioni Mayorga T4 [Mass/Vol] 7.70 ug/dL Normal 4.80-13.90 [facility] Comment on above: Performed By: #### F T3, LIPID, CMP, T7, TSH #### [facility] [address] [address] [address] Dioni Mayorga GLYCOHEMOGLOBIN A1Con 2021 ADA RECOMMENDATION SEE BELOW Normal [facility] Comment on above: Result Comment: ADA RECOMMENDED LIMIT 4.0 - 6.0 ADA THERAPEUTIC TARGET < 7.0 ACTION SUGGESTED > 7.0 Performed By: #### A 1C #### [facility] [address] [place] [address] Dr. Dioni Mayorga Glucose [Mass/Vol] 111 mg/dL Normal [facility] Comment on above: Performed By: #### A 1C #### [facility] [address] [place] [address] Dr. Dioni Mayorga HbA1c (Bld) [Mass fraction] 5.5 % Normal 4.5-6.2 [facility] Comment on above: Performed By: #### A 1C #### [facility] [address] [place] [address] Dr. Dioni Mayorga LIPID PROFILEon 08-02-2021 CHOL-HDL RATIO NORM SEE BELOW Normal [facility] Comment on above: Result Comment: 3.3 - 4.4 LOW RISK 4.4 - 7.1 AVERAGE RISK 7.1 - 11.0 MODERATE RISK >11.0 HIGH RISK Performed By: #### F T3, LIPID, CMP, T7, TSH #### [facility] [address] [address] [address] Dioni Mayorga Cholesterol [Mass/Vol] 211 mg/dL Critically high <=200 [facility] Comment on above: Performed By: #### F T3, LIPID, CMP, T7, TSH #### [facility] [address] [address] [address] Dioni Mayorga Cholesterol in HDL [Mass/Vol] 48 mg/dL Normal 40-60 [facility] Comment on above: Performed By: #### F T3, LIPID, CMP, T7, TSH #### [facility] [address] [place] [address] Dr. Dioni Mayorga Cholesterol in LDL [Mass/Vol] 148.6 mg/dL Normal [facility] Comment on above: Performed By: #### F T3, LIPID, CMP, T7, TSH #### [facility] [address] [place] [address] Dr. Dioni Mayorga Cholesterol.total/Ch olesterol in HDL [Mass ratio] 4.4 {ratio} Normal [facility] Comment on above: Performed By: #### F T3, LIPID, CMP, T7, TSH #### [facility] [address] [place] [address] Dr. Dioni Mayorga HDL NORMAL > or = 60 mg/dl - LOW CARDIOVASCULAR RISK <40 mg/dl - HIGH CARDIOVASCULAR RISK Normal [facility] Comment on above: Performed By: #### F T3, LIPID, CMP, T7, TSH #### [facility] [address] [place] [address] Dr. Dioni Mayorga LDL CALC NORMAL SEE BELOW Normal [facility] Comment on above: Result Comment: <100 mg/dl OPTIMAL 100 - 129 mg/dl NEAR OR ABOVE OPTIMAL 130 - 159 mg/dl BORDERLINE HIGH 160 - 189 mg/dl HIGH >190 mg/dl VERY HIGH Performed By: #### F T3, LIPID, CMP, T7, TSH #### [facility] [address] [address] [address] Dioni Mayorga Triglyceride [Mass/Vol] 72 mg/dL Normal <=150 [facility] Comment on above: Performed By: #### F T3, LIPID, CMP, T7, TSH #### [facility] [address] [address] [address] Dioni Mayorga VLDL CALC 14.4 mg/dL Normal [facility] Comment on above: Performed By: #### F T3, LIPID, CMP, T7, TSH #### [facility] [address] [place] [address] Dr. Dioni Mayorga PROF 14(COMP METB)on 022 Albumin [Mass/Vol] 3.5 g/dL Normal 3.4-5.0 [facility] Comment on above: Performed By: #### F T3, LIPID, CMP, T7, TSH #### [facility] [address] [place] [address] Dr. Dioni Mayorga Albumin/Globulin [Mass ratio] 1.0 {ratio} Normal [facility] Comment on above: Performed By: #### F T3, LIPID, CMP, T7, TSH #### [facility] [address] [place] [address] Dr. Dioni Mayorga ALP [Catalytic activity/Vol] 62 U/L Normal 46-116 [facility] Comment on above: Performed By: #### F T3, LIPID, CMP, T7, TSH #### [facility] [address] [place] [address] Dr. Dioni Mayorga ALT [Catalytic activity/Vol] 20 U/L Normal 14-59 [facility] Comment on above: Performed By: #### F T3, LIPID, CMP, T7, TSH #### [facility] [address] [place] [address] Dr. Dioni Mayorga Anion gap [Moles/Vol] 14.0 mmol/L Normal [facility] Comment on above: Performed By: #### F T3, LIPID, CMP, T7, TSH #### [facility] [address] [address] [address] Dioni Mayorga AST [Catalytic activity/Vol] 12 U/L Critically low 15-37 [facility] Comment on above: Performed By: #### F T3, LIPID, CMP, T7, TSH #### [facility] [address] [address] [address] Dioni Mayorga Bilirubin [Mass/Vol] 0.4 mg/dL Normal 0.2-1.0 [facility] Comment on above: Performed By: #### F T3, LIPID, CMP, T7, TSH #### [facility] [address] [address] [address] Dioni Mayorga Calcium [Mass/Vol] 8.7 mg/dL Normal 8.5-10.1 [facility] Comment on above: Performed By: #### F T3, LIPID, CMP, T7, TSH #### [facility] [address] [place] [address] Dr. Dioni Mayorga Chloride [Moles/Vol] 105 mmol/L Normal 98-107 [facility] Comment on above: Performed By: #### F T3, LIPID, CMP, T7, TSH #### [facility] [address] [place] [address] Dr. Dioni Mayorga CO2 [Moles/Vol] 26.4 mmol/L Normal 21.0-32.0 [facility] Comment on above: Performed By: #### F T3, LIPID, CMP, T7, TSH #### [facility] [address] [address] [address] Dioni Mayorga Creatinine [Mass/Vol] 0.83 mg/dL Normal 0.55-1.02 [facility] Comment on above: Performed By: #### F T3, LIPID, CMP, T7, TSH #### [facility] [address] [place] [address] Dr. Dioni Mayorga EGFR-AF BENINESE >60 Normal >=60 [facility] Comment on above: Performed By: #### F T3, LIPID, CMP, T7, TSH #### [facility] [address] [place] [address] Dr. Dioni Mayorga EGFR-NON AF BENINESE >60 Normal >=60 [facility] Comment on above: Performed By: #### F T3, LIPID, CMP, T7, TSH #### [facility] [address] [address] [address] Dioni Mayorga Globulin (S) [Mass/Vol] 3.5 g/dL Normal [facility] Comment on above: Performed By: #### F T3, LIPID, CMP, T7, TSH #### [facility] [address] [address] [address] Dioni Mayorga Glucose [Mass/Vol] 78 mg/dL Normal 74-106 [facility] Comment on above: Performed By: #### F T3, LIPID, CMP, T7, TSH #### [facility] [address] [place] [address] Dr. Dioni Mayorga Potassium [Moles/Vol] 4.4 mmol/L Normal 3.5-5.1 [facility] Comment on above: Performed By: #### F T3, LIPID, CMP, T7, TSH #### [facility] [address] [address] [address] Dioni Mayorga Protein [Mass/Vol] 7.0 g/dL Normal 6.4-8.2 [facility] Comment on above: Performed By: #### F T3, LIPID, CMP, T7, TSH #### [facility] [address] [address] [address] Dioni Mayorga Sodium [Moles/Vol] 141 mmol/L Normal 136-145 [facility] Comment on above: Performed By: #### F T3, LIPID, CMP, T7, TSH #### [facility] [address] [address] [address] Dioni Mayorga Urea nitrogen [Mass/Vol] 16.0 mg/dL Normal 7.0-18.0 [facility] Comment on above: Performed By: #### F T3, LIPID, CMP, T7, TSH #### [facility] [address] [address] [address] Dioni Mayorga Urea nitrogen/Creatinine [Mass ratio] 19.3 mg/mg Normal [facility] Comment on above: Performed By: #### F T3, LIPID, CMP, T7, TSH #### [facility] [address] [place], [place] [address] Dr. Dioni Mayorga TSHon 08-02-2021 TSH 1.339 uIU/mL Normal 0.358-3.740 [facility] Comment on above: Performed By: #### F T3, LIPID, CMP, T7, TSH #### [facility] [address] [place], [place] [address] Dr. Dioni Mayorga Vital Signs Date Time Vital Sign Value Performing Clinician Faci lity 09-03-2021 08:51-0400 Blood Pressure Location MICHAEL RAFIF [facility] 09-03-2021 08:51-0400 Diastolic blood pressure 96 mm[Hg] MICHAEL RAFFI [facility] 09-03-2021 08:51-0400 Heart rate 106 /min MICHAEL SERNARY [facility] 09-03-2021 08:51-0400 Systolic blood pressure 138 mm[Hg] MICHAEL NUGENT [facility] Encounters Encounter Date Encounter Type Care Provider Facility Start: 05-17-2023 End: 05-18-2023 [facility] Start: 04-19-2023 End: 04-20-2023 ambulatory Harish Cannon MD [facility]: [facility] Start: 01-11-2023 End: 01-12-2023 ambulatory Harish Cannon MD Facility:[facility] Start: 12-07-2022 End: 12-08-2022 ambulatory [facility] Start: 11-23-2022 End: 11-24-2022 ambulatory Harish Cannon MD Facility:[facility] Start: 11-02-2022 End: 11-03-2022 ambulatory Harish Cannon MD Facility:[facility] Start: 03-02-2022 End: 03-02-2022 ambulatory SALVADOR GROSS Facility:[facility] Start: 12-15-2021 End: 12-15-2021 ambulatory SALVADOR GROSS Facility:[facility] Start: 12-09-2021 End: 12-09-2021 ambulatory SALVADOR GROSS Facility:[facility] Start: 09-17-2021 End: 09-18-[address] MONIKA MATTHEWS Facility:[facility] Start: 09-03-[address] MONIKA MATTHEWS Facility :[facility] Start: 09-03-2021 End: 09-03-2021 Patient encounter procedure MICHAEL NUGENT [facility] Start: 08-05-2021 Encounter for genera l adult medical examination without abnormal findings DR MONIKA MATTHEWS [facility] [place] [facility] Start: 08-02-2021 End: 08-03-[address] MONIKA MATTHEWS Facility:[facility] Start: 08-02-2021 End: 08-03-2021 Encounter for general adult medical examination without abnormal findings DR MONIKA MATTHEWS Facility:[facility] Procedures Date Procedure Procedure Detail Performing Clinician Hysterectomy MICHAEL NUGENT Immunizations Immunization Date Immunization Notes Care Provider Fa cility NEGATED: Highlighted row has not occurred!09-03-2021 SARS-CoV-2 mRNA (tozinameran 5y-11y) vaccine MICHAEL NUGENT [facility] Payers Date Payer Category Payer Unknown [id number] 2022 Unknown 2019 Unknown [id number] 1970 Unknown [id number] 2.16.84 [id number] 1970 Unknown [id number] 2.16.84 [id number] 1970 Unknown [id number] 2.16.84 [id number] 1970 Unknown [id number] 2.16.84 [id number] 1970 Unknown [id number] 2.16.84 0.1.007541.3.579.2.593 1970 Unknown [id number] 2.16.84 [id number] 1970 Unknown [id number] 2.16. 840.1.915390.3.579.2.196 1970 Unknown [id number] 2.16. 840.1.007240.3.579.2.196 1970 Unknown [id number] 2.16. 840.1.252972.3.579.2.196 1970 Unknown [id number] 2.16. 840.1.487580.3.579.2.196 1970 Unknown [id number] 2.16. 840.1.781268.3.579.2.196 1970 Unknown [id number] 2.16. [id number] Social History Date Type Detail Facility Start: 09-03-2021 Tobacco smoking status Never s moked tobacco (finding) [facility] Tobacco smoking status Never [facility] Sex Assigned At Female [facility] [place] Functional Status Date Assessment Result Facility 09-03-2021 Functional Status N/A [facility] Discharge instructions 09-03-2021 Note [...] (electrical nerve stimulation). For women, using a rn medical surgical to prevent urine leaks. This is a [...] right after experiencing incontinence. General instructions Take [id number] and prescription medicines only as told by [...] 03/11/2005 Document Revised: 02/11/2018 Document Reviewed: 05/13/2017 [employer] Patient Education 2020 [employer] Follow Up Care 08/06/2021 08:10:07 With:pt will call once she decides how she would like to proceed Address:Unknown When: Unknown [facility] Evaluation + Plan note Note Date & Type Note Facility Evaluation + Plan note Future Appointments Appointment Date:09/17/2021 08:30:00 AM Scheduled Provider: Location:[facility] Appointment Type:URO Nurse Visit [facility] Hospital course Narrative Note Date & Type Note Facility Hospital course Narrative No data available for this section [facility] Progress note Note Date & Type Note Facility Progress note No data available for this section [facility] Summary Purpose Family History No Family History Records FoundNo Family History Records FoundNo Family History Records Found Advance Directives No Advanced Directives Records FoundNo Advanced Directives Records FoundNo Advanced Directives Records Found Additional Source Comments Care Team (unrecognized sect ion and content) Personnel Name: Monika Matthews MD Address: [address] [place] [address] INFORMATION SOURCE (unrecogn ized section and content) DATE CREATED AUTHOR 09/18/2021 [facility] DATE CREATED AUTHOR AUTHOR'S ORGANIZ ATION 03/02/2022 [facility] DATE CREATED AUTHOR AUTHOR'S ORGANIZ ATION 05/25/2023 [facility] FOR RECORDS PERTAINING TO PATIENTS WHO [...] BE BASED ON THE PRIMARY CLINICAL RECORDS. [facility] provides no warranty or guarantee of the accuracy or completeness of information in this document.
[2023-09-13 08:00] VITALS: BP 132/73; PULSE 78; O2SAT 96
[2023-09-13 08:04] VITALS: BP 133/80; PULSE 71; O2SAT 96
[2023-09-13] MEDS: BUPIVACAINE HCL 0.25% PF 25 MG/10 ML VIAL INJ (08:05)
[2023-09-13] MEDS: 0.9 % SODIUM CHLORIDE 10 ML SYRINGE - SALINE FLUSH INJ (08:05)
[2023-09-13] MEDS: IOHEXOL 240 MG/ML - 10 ML VIAL 24 MG INJ (08:05)
[2023-09-13] MEDS: TRIAMCINOLONE ACETONIDE 40 MG/ML VIAL 80 MG INJ (08:05)
[2023-09-13] MEDS: LIDOCAINE HCL 2% 400 MG/20 ML MDV 5 ML INJ (08:06)
--- NOTE | 2023-09-13 08:06 | W.PM.PROCNOT ---
Date of procedure: 09/13/23 Pre-op diagnosis: Lumbar stenosis with neurogenic claudication Post-op diagnosis: same as pre-op Procedure: Procedure: Bilateral L5-S1 transforaminal epidural steroid injection Medications: Bupivacaine 0.25% 2cc, lidocaine 2% 1cc, kenalog 80mg The patient was seen and examined in the preoperative holding area.? Informed consent was obtained and placed on the chart.? Patient was brought to the medical procedure unit and placed in the prone position where a timeout was completed verifying the correct patient, procedure site, position, and planned special equipment using sterile aseptic technique.? Under direct fluoroscopic visualization a 25-gauge Quincke tipped spinal needle was advanced at level left L5-S1 to the designated neural foramen where contrast dye was injected to show adequate spread.? There was no evidence of vascular or adverse uptake.? Epidural spread was appreciated.? The above-mentioned injectate was then placed in a 1.5 mL aliquot preceded by negative aspiration.? The needle was removed. The same procedure, at the same level, was completed on the opposite side. ? Patient was taken to the postprocedural recovery area and monitored for an appropriate length of time before found suitable for discharge in the accompaniment of a responsible adult. Anesthesia: Local Surgeon: Harish Cannon Pathology: none sent Condition: stable Disposition: no change
== END 2023-09-13 08:17 | disposition home or self-care (01) ==
LOC: SURGOUT 07:05
PROVIDERS: PCP Family Medicine; Visit Provider Anesthesiology
DX: M48.062 Spinal stenosis, lumbar region with neurogenic claudication (principal)
CPT/HCPCS: 64483; J0665; J3301; Q9966

== ENCOUNTER 2023-09-29 07:42 | Outpatient (OUT) | payer BC, SELFPAY ==
--- OUTSIDE RECORDS SUMMARY | 2023-09-29 07:43 | XMS_ITS | CCD ---
Author Organization [facility] CliniSytn Care Team Providers Care Cake Puller Name Role Phone Monika Matthews Primary Care Physician [phone] DR MONIKA MATTHEWS Admitting Unavailable CASSIE, DR FRANK Attending Unavailable CASSIE, DR FRANK Primary Care Unavailable CASSIE, DR FRANK Consulting Unavailable ZIEBER, DR ANUPAM Bailey Consulting Unavailable CASSIE, DR FRANK Admitting Unavailable CASSIE, DR FRANK Attending Unavailable CASSIE, DR FRANK Primary Care Unavailable GINNYSALVADOR CARPENTER Admitting Unavailable GINNY, SALVADOR Attending Unavailable CASSIE, [...] Unavailable Giedraitis , Harish Olivier Attending Unavailable Giedraitis , Harish Olivier Attending Unavailable Giedraitis , Andmarie Olivier Attending Unavailable Giedraitis , Harish Olivier Attending Unavailable Giedraitis , Harish Olivier Attending Unavailable Gieditis , Harish [...] Value Interpretation Reference Range Facility Covid-19 PCR ([facility])on 02-15 SARS-CoV-2 (COVID-19) RNA YAMILET+probe Ql (Unsp spec) Not detected Normal NOT DETECTED [facility] Comment on above: Result Comment: When [...] for this test is supported by the [place] of Health and Human Service's declaration that [...] be used). Performed By: #### C VDTB ####[facility] [id number] [place] [address]Dr. Dioni Mayorga INFLUENZA A AND B AGon 03-02 [facility] SEE BELOW Normal [facility] Comment on above: Result Comment: Nega tive for Flu A protein angiten. Infection due to Flu A cannot be ruled out. Flu A angiten in the sample may be below the detection limit of the test. Performed By: #### I NFLUAB #### [facility] [address] [place] [address] Dr. [facility]ioni [facility] Normal [facility] Comment on above: Result Comment: Nega tive for Flu B protein antigen. Infection due to Flu B cannot be ruled out. Flu B antigen in the sample may be below the detection limit of the test. Performed By: #### I NFLUAB #### [facility] [address] [place] [address] Dr. Dioni Mayorga INFLUENZA A AG Negative Normal NEGATIVE SEE COMMENT [facility] Comment on above: Performed By: #### I NFLUAB #### [facility] [address] [place] [address] Dr. Dioni Mayorga INFLUENZA B AG Negative Normal NEGATIVE SEE COMMENT [facility] Comment on above: Performed By: #### I NFLUAB #### [facility] [address] [place] [address] Dr. Dioni Mayorga ASYMPTOMATIC COVID-19 ANTIGE Non 12-15-2021 EUA Statement SEE BELOW Normal [facility] Comment on above: Result Comment: [...] sooner. Performed By: #### C VDAGA #### [facility] [address] [place] [address] Dr. Dioni Mayorga SARS-CoV-2 (COVID-19) RNA YAMILET+probe Ql (Unsp spec) Negative Normal NEGATIVE [facility] Comment on above: Result Comment: Nega tive results are presumptive. They do not preclude infection and should not be used as the sole basis for treatment decisions. Additional confirmatory testing by a molecular method should be considered. Performed By: #### C VDAGA #### [facility] [address] [place] [address] [address] [address] Dioni Mayorga [facility]on 11-16 SARS-CoV-2 (COVID-19) RNA YAMILET+probe Ql (Unsp spec) Detected Critically abnormal NOT DETECTED [facility] Comment on above: Result Comment: This test is not yet approved or cleared by the [place] FDA. When there are no FDA-approved or cleared tests available, and other criteria are met, FDA can make tests available under an emergency access mechanism called an Emergency Use Authorization (EUA). The EUA for this test is supported by the [place] of Health and Human Service's declaration that [...] longer be used). Performed By: #### C [facility] ####[facility] [address] [place], [place] [address]Hv. Dioni Mayorga MG MAMM SCREEN 3D DUSTIN CADon 09-17-2021 MG MAMM SCREEN 3D DUSTIN CAD Patient: BARBARA BACA Exam Date: 09/17/2021 : 1970 Gender:F Ordering : DR MONIKA MATTHEWS . Admission #: [id number] Family : Order #: [id number] CLICK HERE TO VIEW EXAM RADIOLOGY REPORT PROCEDURE: MAMMOGRAM SCREENING 3D BILATERAL CAD COMPARISON: MG MAMM SCREEN 3D DUSTIN CAD, 05/08/2020. MAMMO POST BIOPSY RIGHT, 01/04/2018. INDICATIONS: Screening mammography Calculator Name NCI Breast Cancer Risk Assessment Tool 5 Year Breast Cancer Risk 1.00% Lifetime Breast Cancer Risk 9.60% Personal Breast Cancer No Personal Ovarian Cancer No Treatments None Family Cancers None LOCATION: [facility] BREAST COMPOSITION: Scattered areas fibroglandular density. [...] Rodarte M.D. on 09/17/2021 at 13:13 Normal [facility] Formson 09-04-2021 Forms [id number] #1.00CD:127 Normal [facility] Patient Educationon 09-05-19 Patient Education Obstetrics and Gynecology Overactive Bladder, [...] (more content not included)... Normal [facility] Physician Referralon 022 Physician Referral [id number]#1.00CD:127 Normal [facility] Urology Office/Clinic Noteon 09-04-2021 Urology [...] had hysterectomy about 10 yrs ago. previous [employer]ICER advised her bladder had dropped a bit. [...] E&M of New Patient Moderate 45-59 Min [id number] Follow-up With When Contact Information pt will [...] - Not Given Postpone due to refusal [facility] Comment on above: Result Comment: Elec tronically Signed By: MICHAEL NUGENT PA-C\.br\Date and Time Signed: 09/04/21 09:42 EDT Ambulatory Visit Summaryon 0 09-03-2021 Ambulatory Visit Summary BARBARA BACA :1970 Visit Date:09/03/2021 Ambulatory Visit Instructions Your Diagnosis Stress incontinence Tests Performed Urnls Dip Stick Auto w/o Microscopy POC 92079 Your Care Team Attending Physician - MICHAEL [...] Urnls Dip Stick Auto w/o Microscopy POC 07542 (09/03/2021) Bilirubin Urine Dipstick - Negative Blood Urine Dipstick - Trace-intact Glucose Urine Dipstick - Negative Ketones Urine Dipstick - Negative Leukocytes Urine Dipstick - Negative Nitrite Urine Dipstick - Negative Protein Urine Dipstick - Negative Specific [place] Urine Dipstick - 1.020 Urine Appearance Urine Dipstick - Clear Urine Color Urine Dipstick - Yellow Urobilinogen Urine Dipstick - Normal 0.2-1 EU/dl pH Urine Dipstick - 5 Medications and Immunizations Administered Not Given SARS-CoV-2 mRNA (tozinameran 5y-11y) vac, Postpone due to refusal Allergies No Known Allergies No Known Medication Allergies Normal [facility] CBC AUTO DIFFon 08-02-2021 BASO # 0.0 103/ul Normal 0.0-0.1 [facility] Comment on above: Performed By: #### C BC #### [facility] [address] [place] [address] Dr. Dioni Mayorga Basophils/100 WBC (Bld) 0.4 % Normal 0.2-2.0 [facility] Comment on above: Performed By: #### C BC #### [facility] [address] [place] [address] Dr. Dioni Mayorga EO # 0.1 103/ul Normal 0.0-0.7 [facility] Comment on above: Performed By: #### C BC #### [facility] [address] [place] [address] Dr. Dioni Mayorga Eosinophils/100 WBC (Bld) 1.0 % Normal 0.9-7.0 [facility] Comment on above: Performed By: #### C BC #### [facility] [address] [place] [address] Dr. Dioni Mayorga Erythrocyte distribution width (RBC) [Ratio] 13.4 % Normal 11.0-15.0 [facility] Comment on above: Performed By: #### C BC #### [facility] [address] [place] [address] Dr. Dioni Mayorga Hematocrit (Bld) [Volume fraction] 45.2 % Normal 36.0-48.0 [facility] Comment on above: Performed By: #### C BC #### [facility] [address] [place] [address] Dr. Dioni Mayorga Hemoglobin (Bld) [Mass/Vol] 14.5 g/dL Normal 12.0-16.0 [facility] Comment on above: Performed By: #### C BC #### [facility] [address] [place] [address] Dr. Dioni Mayorga IG # 0.02 10e3/ul Normal 0.00-0.03 [facility] Comment on above: Performed By: #### C BC #### [facility] [address] [place] [address] Dr. Dioni Mayorga IG % 0.3 % Normal 0.0-0.5 [facility] Comment on above: Performed By: #### C BC #### [facility] [address] [place] [address] Dr. Dioni Mayorga LYMPH # 2.7 103/ul Normal 1.2-3.8 [facility] Comment on above: Performed By: #### C BC #### [facility] [address] [place] [address] Dr. Dioni Mayorga Lymphocytes/100 WBC (Bld) 38.7 % Normal 20.5-60.0 [facility] Comment on above: Performed By: #### C BC #### [facility] [address] [place] [address] Dr. Dioni Mayorga MANUAL DIFF REQ NO Normal [facility] Comment on above: Performed By: #### C BC #### [facility] [address] [place] [address] Dr. Dioni Mayorga MCH (RBC) [Entitic mass] 28.4 pg Normal 26.7-34.0 [facility] Comment on above: Performed By: #### C BC #### [facility] [address] [place] [address] Dr. Dioni Mayorga MCHC (RBC) [Mass/Vol] 32.1 g/dL Normal 29.9-35.2 [facility] Comment on above: Performed By: #### C BC #### [facility] [address] [place] [address] Dr. Dioni Mayorga MCV (RBC) [Entitic vol] 88.5 fL Normal 81.0-99.0 [facility] Comment on above: Performed By: #### C BC #### [facility] [address] [place] [address] [address] Dioni Mayorga MONO # 0.4 103/ul Normal 0.3-0.8 [facility] Comment on above: Performed By: #### C BC #### [facility] [address] [place] [address] [address] Dioni Mayorga Monocytes/100 WBC (Bld) 6.2 % Normal 1.7-12.0 [facility] Comment on above: Performed By: #### C BC #### [facility] [address] [place] [address] [address] Dioni Mayorga NEUT # 3.7 103/ul Normal 1.4-6.5 [facility] Comment on above: Performed By: #### C BC #### [facility] [address] [place] [address] Dr. Dioni Mayorga Neutrophils/100 WBC (Bld) 53.4 % Normal 43.0-75.0 [facility] Comment on above: Performed By: #### C BC #### [facility] [address] [place] [address] Dr. Dioni Mayorga Platelet mean volume (Bld) [Entitic vol] 10.4 fL Normal 9.5-13.5 [facility] Comment on above: Performed By: #### C BC #### [facility] [address] [place] [address] Dr. Dioni Mayorga PLT 340 103/ul Normal 150-450 [facility] Comment on above: Performed By: #### C BC #### [facility] [address] [place] [address] Dr. Dioni Mayorga RBC 5.11 106/ul Normal 4.20-5.40 [facility] Comment on above: Performed By: #### C BC #### [facility] [address] [place] [address] Dr. Dioni Mayorga WBC 6.9 103/ul Normal 4.0-11.0 [facility] Comment on above: Performed By: #### C BC #### [facility] [address] [place] [address] [address] Dioni Mayorga FREE T3on 08-02-2021 FREE T3 1.49 pg/mlL Critically low 2.18-3.98 [facility] Comment on above: Performed By: #### F T3, LIPID, CMP, T7, TSH #### [facility] [address] [place] [address] [address] Dioni Mayorga FREE THYROXINE INDEX T7on FTI 2.77 Normal 1.30-4.50 [facility] Comment on above: Performed By: #### F T3, LIPID, CMP, T7, TSH #### [facility] [address] [place] [address] [address] Dioni Mayorga T3U 36.0 % Normal 30.0-39.0 [facility] Comment on above: Performed By: #### F T3, LIPID, CMP, T7, TSH #### [facility] [address] [place] [address] Dr. Dioni Mayorga T4 [Mass/Vol] 7.70 ug/dL Normal 4.80-13.90 [facility] Comment on above: Performed By: #### F T3, LIPID, CMP, T7, TSH #### [facility] [address] [place] [address] [address] Dioni Mayorga GLYCOHEMOGLOBIN A1Con 2021 ADA RECOMMENDATION SEE BELOW Normal [facility] Comment on above: Result Comment: ADA RECOMMENDED LIMIT 4.0 - 6.0 ADA THERAPEUTIC TARGET < 7.0 ACTION SUGGESTED > 7.0 Performed By: #### A 1C #### [facility] [address] [place] [address] Dr. Dioni Mayorga Glucose [Mass/Vol] 111 mg/dL Normal [facility] Comment on above: Performed By: #### A 1C #### [facility] [address] [place] [address] Dr. Dioni Mayorga HbA1c (Bld) [Mass fraction] 5.5 % Normal 4.5-6.2 [facility] Comment on above: Performed By: #### A 1C #### [facility] [address] [place] [address] [address] Dioni Mayorga LIPID PROFILEon 08-02-2021 CHOL-HDL RATIO NORM SEE BELOW Normal [facility] Comment on above: Result Comment: 3.3 - 4.4 LOW RISK 4.4 - 7.1 AVERAGE RISK 7.1 - 11.0 MODERATE RISK >11.0 HIGH RISK Performed By: #### F T3, LIPID, CMP, T7, TSH #### [facility] [address] [place] [address] [address] Dioni Mayorga Cholesterol [Mass/Vol] 211 mg/dL Critically high <=200 [facility] Comment on above: Performed By: #### F T3, LIPID, CMP, T7, TSH #### [facility] [address] [place] [address] [address] Dioni Mayorga Cholesterol in HDL [Mass/Vol] 48 mg/dL Normal 40-60 [facility] Comment on above: Performed By: #### F T3, LIPID, CMP, T7, TSH #### [facility] [address] [place] [address] [address] Dioni Mayorga Cholesterol in LDL [Mass/Vol] 148.6 mg/dL Normal [facility] Comment on above: Performed By: #### F T3, LIPID, CMP, T7, TSH #### [facility] [address] [place] [address] [address] Dioni Mayorga Cholesterol.total/Ch olesterol in HDL [Mass ratio] 4.4 {ratio} Normal [facility] Comment on above: Performed By: #### F T3, LIPID, CMP, T7, TSH #### [facility] [address] [place] [address] [address] Dioni Mayorga HDL NORMAL > or = 60 mg/dl - LOW CARDIOVASCULAR RISK <40 mg/dl - HIGH CARDIOVASCULAR RISK Normal [facility] Comment on above: Performed By: #### F T3, LIPID, CMP, T7, TSH #### [facility] [address] [place] [address] [address] Dioni Mayorga LDL CALC NORMAL SEE BELOW Normal [facility] Comment on above: Result Comment: <100 mg/dl OPTIMAL 100 - 129 mg/dl NEAR OR ABOVE OPTIMAL 130 - 159 mg/dl BORDERLINE HIGH 160 - 189 mg/dl HIGH >190 mg/dl VERY HIGH Performed By: #### F T3, LIPID, CMP, T7, TSH #### [facility] [address] [place] [address] [address] Dioni Mayorga Triglyceride [Mass/Vol] 72 mg/dL Normal <=150 [facility] Comment on above: Performed By: #### F T3, LIPID, CMP, T7, TSH #### [facility] [address] [address] [address] Dioni Mayorga VLDL CALC 14.4 mg/dL Normal [facility] Comment on above: Performed By: #### F T3, LIPID, CMP, T7, TSH #### [facility] [address] [address] [address] Dioni Mayorga PROF 14(COMP METB)on 022 Albumin [Mass/Vol] 3.5 g/dL Normal 3.4-5.0 [facility] Comment on above: Performed By: #### F T3, LIPID, CMP, T7, TSH #### [facility] [address] [address] [address] Dioni Mayorga Albumin/Globulin [Mass ratio] 1.0 {ratio} Normal [facility] Comment on above: Performed By: #### F T3, LIPID, CMP, T7, TSH #### [facility] [address] [address] [address] Dioni Mayorga ALP [Catalytic activity/Vol] 62 U/L Normal 46-116 [facility] Comment on above: Performed By: #### F T3, LIPID, CMP, T7, TSH #### [facility] [address] [address] [address] Dioni Mayorga ALT [Catalytic activity/Vol] 20 U/L Normal 14-59 [facility] Comment on above: Performed By: #### F T3, LIPID, CMP, T7, TSH #### [facility] [address] [address] [address] Dioni Mayorga Anion gap [Moles/Vol] 14.0 mmol/L Normal [facility] Comment on above: Performed By: #### F T3, LIPID, CMP, T7, TSH #### [facility] [address] [address] [address] Dioni Mayorga AST [Catalytic activity/Vol] 12 U/L Critically low 15-37 [facility] Comment on above: Performed By: #### F T3, LIPID, CMP, T7, TSH #### [facility] [address] [address] [address] Dioni Mayorga Bilirubin [Mass/Vol] 0.4 mg/dL Normal 0.2-1.0 [facility] Comment on above: Performed By: #### F T3, LIPID, CMP, T7, TSH #### [facility] [address] [address] [address] Dioni Mayorga Calcium [Mass/Vol] 8.7 mg/dL Normal 8.5-10.1 [facility] Comment on above: Performed By: #### F T3, LIPID, CMP, T7, TSH #### [facility] [address] [address] [address] Dioni Mayorga Chloride [Moles/Vol] 105 mmol/L Normal 98-107 [facility] Comment on above: Performed By: #### F T3, LIPID, CMP, T7, TSH #### [facility] [address] [address] [address] Dioni Mayorga CO2 [Moles/Vol] 26.4 mmol/L Normal 21.0-32.0 [facility] Comment on above: Performed By: #### F T3, LIPID, CMP, T7, TSH #### [facility] [address] [address] [address] Dioni Mayorga Creatinine [Mass/Vol] 0.83 mg/dL Normal 0.55-1.02 [facility] Comment on above: Performed By: #### F T3, LIPID, CMP, T7, TSH #### [facility] [address] [place] [address] Dr. Dioni Mayorga EGFR-AF SYRIAN >60 Normal >=60 [facility] Comment on above: Performed By: #### F T3, LIPID, CMP, T7, TSH #### [facility] [address] [address] [address] Dioni Mayorga EGFR-NON AF SYRIAN >60 Normal >=60 [facility] Comment on above: Performed By: #### F T3, LIPID, CMP, T7, TSH #### [facility] [address] [address] [address] Dioni Mayorga Globulin (S) [Mass/Vol] 3.5 g/dL Normal [facility] Comment on above: Performed By: #### F T3, LIPID, CMP, T7, TSH #### [facility] [address] [address] [address] Dioni Mayorga Glucose [Mass/Vol] 78 mg/dL Normal 74-106 [facility] Comment on above: Performed By: #### F T3, LIPID, CMP, T7, TSH #### [facility] [address] [place] [address] Dr. Dioni Mayorga Potassium [Moles/Vol] 4.4 mmol/L Normal 3.5-5.1 [facility] Comment on above: Performed By: #### F T3, LIPID, CMP, T7, TSH #### [facility] [address] [address] [address] Dioni Mayorga Protein [Mass/Vol] 7.0 g/dL Normal 6.4-8.2 [facility] Comment on above: Performed By: #### F T3, LIPID, CMP, T7, TSH #### [facility] [address] [address] [address] Dioni Mayorga Sodium [Moles/Vol] 141 mmol/L Normal 136-145 [facility] Comment on above: Performed By: #### F T3, LIPID, CMP, T7, TSH #### [facility] [address] [address] [address] Dioni Mayorga Urea nitrogen [Mass/Vol] 16.0 mg/dL Normal 7.0-18.0 [facility] Comment on above: Performed By: #### F T3, LIPID, CMP, T7, TSH #### [facility] [address] [place] [address] Dr. Dioni Mayorga Urea nitrogen/Creatinine [Mass ratio] 19.3 mg/mg Normal [facility] Comment on above: Performed By: #### F T3, LIPID, CMP, T7, TSH #### [facility] [address] [place], [place] [address] Dr. Dioni Mayorga TSHon 08-02-2021 TSH 1.339 uIU/mL Normal 0.358-3.740 [facility] Comment on above: Performed By: #### F T3, LIPID, CMP, T7, TSH #### [facility] [address] [place], [place] [address] Dr. Dioni Mayorga Vital Signs Date Time Vital Sign Value Performing Clinician Faci lity 09-03-2021 08:51-0400 Blood Pressure Location MICHAEL NUGENT [facility] 09-03-2021 08:51-0400 Diastolic blood pressure 96 mm[Hg] MICHAEL NUGENT [facility] 09-03-2021 08:51-0400 Heart rate 106 /min MICHAEL NUGENT [facility] 09-03-2021 08:51-0400 Systolic blood pressure 138 mm[Hg] MICHAEL NUGENT [facility] Encounters Encounter Date Encounter Type Care Provider Facility Start: 09-13-2023 End: 09-13-2023 ambulatory Harish Cannon MD Facility:[facility] Start: 05-17-2023 End: 05-17-2023 ambulatory Harish Cannon MD Facility:[facility] Start: 04-19-2023 End: 04-19-2023 ambulatory Harish Cannon MD Facility:[facility] Start: 01-11-2023 End: 01-11-2023 ambulatory Harish Cannon MD Facility:[facility] Start: 12-07-2022 End: 12-07-2022 ambulatory Harish Cannon MD Facility:[facility] Start: 11-23-2022 End: 11-23-2022 ambulatory Harish Cannon MD Facility:[facility] Start: 11-02-2022 End: 11-02-2022 ambulatory Harish Cannon MD Facility:[facility] Start: 03-02-2022 End: 03-02-2022 ambulatory SALVADOR GROSS Facility:[facility] Start: 12-15-2021 End: 12-15-2021 ambulatory SALVADOR GROSS Facility:[facility] Start: 12-09-2021 End: 12-09-2021 ambulatory SALVADOR GROSS Facility:[facility] Start: 09-17-2021 End: 09-18-[address] MONIKA MATTHEWS Facility:[facility] Start: 09-03-[address] MONIKA MATTHEWS Facility :[facility] Start: 09-03-2021 End: 09-03-2021 Patient encounter procedure MICHAEL NUGENT [facility] Start: 08-05-2021 Encounter for genera l adult medical examination without abnormal findings DR MONIKA MATTHEWS [facility] Start: 08-02-2021 End: 08-03-[address] MONIKA MATTHEWS Facility:[facility] Start: 08-02-2021 End: 08-03-2021 Encounter for general adult medical examination without abnormal findings DR MONIKA MATTHEWS Facility:[facility] Procedures Date Procedure Procedure Detail Performing Clinician Hysterectomy MICHAEL NUGENT Immunizations Immunization Date Immunization Notes Care Provider Fa roly NEGATED: Highlighted row has not occurred!09-03-2021 SARS-CoV-2 mRNA (tozinameran 5y-11y) vaccine MICHAEL NUGENT [facility] Payers Date Payer Category Payer Unknown [id number] 2022 Unknown 2019 Unknown [id number] 1970 Unknown [id number] 2.16.84 [id number] 1970 Unknown [id number] 2.16.84 [id number] 1970 Unknown [id number] 2.16.84 0.1.863323.3.579.2.593 1970 Unknown [id number] 2.16.84 0.1.079707.3.579.2.593 1970 Unknown [id number] 2.16.84 0.1.468745.3.579.2.593 1970 Unknown [id number] 2.16.84 0.1.658492.3.579.2.593 1970 Unknown [id number] 2.16. 840.1.972971.3.579.2.196 1970 Unknown [id number] 2.16. 840.1.108524.3.579.2.196 1970 Unknown [id number] 2.16. 840.1.814191.3.579.2.196 1970 Unknown [id number] 2.16. 840.1.768495.3.579.2.196 1970 Unknown [id number] 2.16. 840.1.610202.3.579.2.196 1970 Unknown [id number] 2.16. 840.1.406067.3.579.2.196 1970 Unknown [id number] 2.16. 840.1.362503.3.579.2.196 Social History Date Type Detail Facility Start: 09-03-2021 Tobacco smoking status Never s moked tobacco (finding) [facility] Tobacco smoking status Never [facility] Neil Sex Assigned At Female [facility] Neil Functional Status Date Assessment Result Facility 09-03-2021 Functional Status N/A [facility] Discharge instructions 09-03-2021 Note Date & [...] (electrical nerve stimulation). For women, using a paramedical aide to prevent urine leaks. This is a [...] right after experiencing incontinence. General instructions Take icdi-gwx-topizut and prescription medicines only as told by [...] 03/11/2005 Document Revised: 02/11/2018 Document Reviewed: 05/13/2017 [employer] Patient Education 2020 [employer]. Follow Up Care 08/06/2021 08:10:07 With:pt will call once she decides how she would like to proceed Address:Unknown When: Unknown [facility] Evaluation + Plan note Note Date & Type Note Facility Evaluation + Plan note Future Appointments Appointment Date:09/17/2021 08:30:00 AM Scheduled Provider: Location:[facility] Appointment Type:URO Nurse Visit [facility] Hospital course Narrative Note Date & Type Note Facility Hospital course Narrative No data available for this section [facility] Progress note Note Date & Type [...] content) Personnel Name: Monika Matthews MD Address: [address] [place] [address] INFORMATION SOURCE (unrecogn ized section and content) DATE CREATED AUTHOR 09/18/2021 [facility] [place] DATE CREATED AUTHOR AUTHOR'S ORGANIZ ATION 03/02/2022 [facility] DATE CREATED AUTHOR AUTHOR'S ORGANIZ ATION 09/28/2023 [facility] FOR RECORDS PERTAINING TO PATIENTS [...] BE BASED ON THE PRIMARY CLINICAL RECORDS. [facility] [employer] [facility] provides no warranty or guarantee of the accuracy or completeness of information in this document.
--- NOTE | 2023-09-29 08:07 | P.CN_ITS ---
Consult Note: HPI Data of Consult Patient: known to practice within the last 3 years Consult date: 04/19/23 Requesting Physician: Therese Montelongo NP Primary Care Provider: Romero Dykes MD Consult Narrative Reason for consult: chronic low back pain Narrative: 52yof who presents for assessment of chronic low back pain. Patient previously evaluated by Dr Cannon and MRI imaging was consistent with lumbar radiculopathy/lumbar stenosis with NC. Patient continues to engage in HEP greater than 6 weeks. Patient has found benefit to tizanidine 4-8mg HS and diclofenac 100mg BID PRN. Recent bilateral L5-S1 TFESI providing 40% improvement ongoing in pain and functional ability. cc:: CC: Therese Montelongo NP Review of Systems ROS Status of ROS 10 or more systems reviewed and unremark able except as noted in history and below Musculoskeletal Reports: back pain PFSH PFSH Medical History Low back ache ?M54.50 - Low back pain, unspecified (ICD-10) Obesity ?E66.9 - Obesity, unspecified (ICD-10) Surgical History H/O tooth extraction ?K08.409 - Partial loss of teeth, unspecified cause, unspecified class (ICD- 10) H/O: hysterectomy ?Z90.710 - Acquired absence of both cervix and uterus (ICD-10) Social History Smoking status: Never smoker Meds Home Medications and Allergies Home Medications ?Medication ?Instructions ?Recorded ?Confirmed ?Type ibuprofen 200 mg capsule 800 mg PO Q12H PRN pain 11/02/22 09/13/23 History loratadine-pseudoephedrine ER 10 1 tab PO DAILY 11/02/22 09/13/23 History mg-240 mg tablet,extended [id number] (Claritin-D 24 Hour) tizanidine 4 mg tablet 4 mg PO BID PRN muscle spasticity 12/02/22 09/13/23 Rx #45 tabs diclofenac sodium 100 mg mg PO 09/13/23 History tablet,extended release 24 hr Allergies Allergy/AdvReac Type Severity Reaction Status Date / Time No Known Drug Allergies Allergy Verified 07/29/24 07:17 Exam Constitutional Documenting provider has reviewed patient's vital signs: yes Common normals: no apparent distress, oriented x3, healthy appearing, alert and well nourished General appearance: cooperative Nutritional appearance: obese HENMT Common normals: normocephalic, hearing grossly normal bilaterally and moist oral mucous membranes Head and scalp: normocephalic Eye Common normals: PERRL Pupil: PERRL Neck & C-Spine Common normals: full ROM General: normal visual inspection Chest Common normals: inspection of chest normal Respiratory Common normals: normal respiratory effort, no retractions and no use of accessory muscles Back & Pelvis Common normals: no CVA tenderness Lumbar spine/lower back: normal to inspection, lumbar ROM normal and straight leg raise negative bilaterally Other: strength 5/5 BLE sensation intact Extremity Common normals: normal to inspection and full ROM Neuro Common normals: oriented x3, CN's II-XII intact bilaterally, moves all extremities, no focal motor deficits, no sensory deficits noted, deep tendon reflexes 2+ bilaterally and gait normal Sensorium/orientation: alert Motor exam: strength 5/5 throughout and no movement abnormalities noted Psych Common normals: mental status grossly normal, thought process normal, cooperative, affect normal, speech normal and activity/motor behavior normal Speech: normal speech Thought process: normal thought process Results Additional Findings Additional findings: If on a controlled substance or opioids, I have checked an [place]ARRS report on this patient and there are no aberrancies noted in the prescribing history.??If on a controlled substance or opioid a drug screen was completed and reviewed within the last year, and if there has not been a drug screen completed we ordered one today to monitor higher risk, state monitored pain medication use. As part of providing excellent, safe, comprehensive care, the following was completed at our patient's visit: 1. A medication reconciliation and review to ensure accurate knowledge of current/active medications, including asking our patients to inform us about any [id number] medications or herbal remedies/nutritional supplements/alternative remedies. 2. A review to specifically ensure our patients have had annual screening for screening for depression, screening for tobacco use, and screening for unhealthy alcohol use. For concerning screenings had a discussion with the patient, provided patient education, and recommended follow-up with primary care provider when appropriate. If patient noted with a risk of falling, they received education on strength, gait, and balance training to prevent future risk of falling. Assessment and Plan Assessment and Plan (1) Lumbar radiculopathy: (2) Lumbar stenosis without neurogenic claudication: (3) Myalgia, other site: Plan continue tizanidine 4-8mg HS PRN continue diclofenac 100mg BID PRN pain, risks vs benefits and equipment [employer] side effects discussed. denies SE at this time continue HEP as tolerated f/u 3 months, sooner if needed
== END 2023-09-29 07:43 | disposition home or self-care (01) ==
LOC: PM 07:42
PROVIDERS: PCP Family Medicine; Visit Provider Nurse Practitioner
DX: M54.16 Radiculopathy, lumbar region (principal); M48.062 Spinal stenosis, lumbar region with neurogenic claudication; M79.18 Myalgia, other site
CPT/HCPCS: G0463

== ENCOUNTER 2023-10-22 08:34 | Outpatient (OUT) | payer BC, SELFPAY ==
--- NOTE | 2023-10-22 08:36 | MM_ITS ---
Patient Name: JONATHAN BACA MR#: [id number] : 1970 Exam Date: 10/22/2023 Ordering Doctor: DR Romero Dykes . RADIOLOGY REPORT PROCEDURE: MM TOMOSYNTHESIS SCREENING BI COMPARISON: MM TOMOSYNTHESIS SCREENING BI, 10/20/2022. MG MAMM SCREEN 3D DUSTIN CAD, 09/17/2021. MG MAMM SCREEN 3D DUSTIN CAD, 05/08/2020. MG MAMM DUSTIN SCRN W CAD DIG, 06/21/2013. INDICATIONS: Screening Calculator Name NCI Breast Cancer Risk Assessment Tool 5 Year Breast Cancer Risk 1.10% Lifetime Breast Cancer Risk 9.30% Personal Breast Cancer No Personal Ovarian Cancer No Treatments None Family Cancers None LOCATION: [facility] BREAST COMPOSITION: There are scattered areas of fibroglandular density. FINDINGS: DIAGNOSTIC CATEGORY 1--NEGATIVE. RIGHT BREAST: No significant suspicious finding. No significant change has occurred. LEFT BREAST: No significant suspicious finding. No significant change has occurred. RECOMMENDATIONS: ROUTINE MAMMOGRAM AND CLINICAL EVALUATION IN 12 MONTHS. PLEASE NOTE: A NORMAL MAMMOGRAM DOES NOT EXCLUDE THE POSSIBILITY OF BREAST CANCER. A CLINICALLY SUSPICIOUS PALPABLE LUMP SHOULD BE BIOPSIED. Dictated by: Anupam Rodarte M.D. on 10/22/2023 at 16:41 Approved by: Anupam Rodarte M.D. on 10/22/2023 at 16:43
--- OUTSIDE RECORDS SUMMARY | 2023-10-22 08:47 | XMS_ITS | CCD ---
Author Organization [facility] CliniSynd Care Team Providers Care Fullerette Name Role Phone Monika Matthews Primary Care [...] Value Interpretation Reference Range Facility Covid-19 PCR ([facility])on 02-15 SARS-CoV-2 (COVID-19) RNA YAMILET+probe Ql (Unsp spec) Not detected Normal NOT DETECTED [facility] Comment on above: Result Comment: When diagnostic [...] for this test is supported by the [place] of Health and Human Service's declaration that [...] be used). Performed By: #### C VDTB ####[facility] [address] [place] [address]Dr. Dioni Mayorga INFLUENZA A AND B AGon 03-02 [facility] SEE BELOW Normal [facility] Comment on above: Result Comment: Nega tive for Flu A protein angiten. Infection due to Flu A cannot be ruled out. Flu A angiten in the sample may be below the detection limit of the test. Performed By: #### I NFLUAB #### [facility] [address] [place] [address] Dr. Dioni [facility] SEE BELOW Normal [facility] Comment on above: Result Comment: Nega tive for Flu B protein antigen. Infection due to Flu B cannot be ruled out. Flu B antigen in the sample may be below the detection limit of the test. Performed By: #### I NFLUAB #### [facility] [address] [place] [address] Dr. Dioni Mayorga INFLUENZA A AG Negative Normal NEGATIVE SEE COMMENT [facility] Comment on above: Performed By: #### I NFLUAB #### [facility] [address] [place] [address] Dr. Dioni Mayorga INFLUENZA B AG Negative Normal NEGATIVE SEE COMMENT [facility] Comment on above: Performed By: #### I NFLUAB #### [facility] [address] [place] [address] Dr. Dioni Mayorga ASYMPTOMATIC COVID-19 ANTIGE Non 12-15-2021 EUA Statement SEE BELOW Normal [facility] [...] sooner. Performed By: #### C VDAGA #### [facility] [address] [place] [address] Dr. Dioni Mayorga SARS-CoV-2 (COVID-19) RNA YAMILET+probe Ql (Unsp spec) Negative Normal NEGATIVE [facility] Comment on above: Result Comment: Nega tive results are presumptive. They do not preclude infection and should not be used as the sole basis for treatment decisions. Additional confirmatory testing by a molecular method should be considered. Performed By: #### C VDAGA #### [facility] [address] [place] [address] [id number] [address] Dioni Mayorga [facility]on 11-16 SARS-CoV-2 (COVID-19) RNA YAMILET+probe Ql (Unsp spec) Detected Critically abnormal NOT DETECTED [facility] Comment on above: Result Comment: This test is not yet approved or cleared by the [place] FDA. When there are no FDA-approved or cleared tests available, and other criteria are met, FDA can make tests available under an emergency access mechanism called an Emergency Use Authorization (EUA). The EUA for this test is supported by the [employer] of Health and Human Service's declaration that [...] longer be used). Performed By: #### C [facility] ####[facility] [address] [place], [place] [address]Af. Dioni Mayorga MG MAMM SCREEN 3D DUSTIN CADon 09-17-2021 MG MAMM SCREEN 3D DUSTIN CAD Patient: BARBARA BACA Exam Date: 09/17/2021 : 1970 Gender:F Ordering : DR MONIKA MATTHEWS . Admission #: [id number] Family : Order #: [id number] CLICK HERE TO VIEW EXAM RADIOLOGY REPORT PROCEDURE: MAMMOGRAM SCREENING 3D BILATERAL CAD COMPARISON: MG MAMM SCREEN 3D DUSTIN CAD, 05/08/2020. MAMMO POST BIOPSY RIGHT, 01/04/2018. INDICATIONS: Screening mammography Calculator Name NCI Breast Cancer Risk Assessment Tool 5 Year Breast Cancer Risk 1.00% Lifetime Breast Cancer Risk 9.60% Personal Breast Cancer No Personal Ovarian Cancer No Treatments None Family Cancers None LOCATION: [facility] BREAST COMPOSITION: Scattered areas fibroglandular density. FINDINGS: [...] on 09/17/2021 at 13:13 Normal [facility] Formson 09-04-2021 Forms [id number] #1.00CD:127 Normal [facility] Patient Educationon 09-05-19 Patient Education Obstetrics and [...] Take ove (more content not included)... Normal [facility] Physician Referralon 022 Physician Referral [id number]#[id number]:127 Normal [facility] Urology Office/Clinic Noteon 09-04-2021 Urology Office/Clinic [...] had hysterectomy about 10 yrs ago. previous HIV CTS SPECIALIST advised her bladder had dropped a [...] E&M of New Patient Moderate 45-59 Min 95097 Follow-up With When Contact Information pt will [...] - Not Given Postpone due to refusal [facility] Comment on above: Result Comment: Elec tronically Signed By: MICHAEL NUGENT PA-C\.br\Date and Time Signed: 09/04/21 09:42 EDT Ambulatory Visit Summaryon 0 09-03-2021 Ambulatory Visit Summary BARBARA BACA :1970 Visit Date:09/03/2021 Ambulatory Visit Instructions Your Diagnosis Stress incontinence Tests Performed Urnls Dip Stick Auto w/o Microscopy POC 11770 Your Care Team Attending Physician - MICHAEL [...] Urnls Dip Stick Auto w/o Microscopy POC 57331 (09/03/2021) Bilirubin Urine Dipstick - Negative Blood Urine Dipstick - Trace-intact Glucose Urine Dipstick - Negative Ketones Urine Dipstick - Negative Leukocytes Urine Dipstick - Negative Nitrite Urine Dipstick - Negative Protein Urine Dipstick - Negative Specific Crockett Urine Dipstick - 1.020 Urine Appearance Urine Dipstick - Clear Urine Color Urine Dipstick - Yellow Urobilinogen Urine Dipstick - Normal 0.2-1 EU/dl pH Urine Dipstick - 5 Medications and Immunizations Administered Not Given SARS-CoV-2 mRNA (tozinameran 5y-11y) vac, Postpone due to refusal Allergies No Known Allergies No Known Medication Allergies Normal [facility] CBC AUTO DIFFon 08-02-2021 BASO # 0.0 103/ul Normal 0.0-0.1 [facility] Comment on above: Performed By: #### C BC #### [facility] [address] [place] [address] Dr. Dioni Mayorga Basophils/100 WBC (Bld) 0.4 % Normal 0.2-2.0 [facility] Comment on above: Performed By: #### C BC #### [facility] [address] [place] [address] Dr. Dioni Mayorga EO # 0.1 103/ul Normal 0.0-0.7 [facility] Comment on above: Performed By: #### C BC #### [facility] [address] [place] [address] Dr. Dioni Mayorga Eosinophils/100 WBC (Bld) 1.0 % Normal 0.9-7.0 [facility] Comment on above: Performed By: #### C BC #### [facility] [address] [place] [address] Dr. Dioni Mayorga Erythrocyte distribution width (RBC) [Ratio] 13.4 % Normal 11.0-15.0 [facility] Comment on above: Performed By: #### C BC #### [facility] [address] [place] [address] Dr. Dioni Mayorga Hematocrit (Bld) [Volume fraction] 45.2 % Normal 36.0-48.0 [facility] Comment on above: Performed By: #### C BC #### [facility] [address] [place] [address] Dr. Dioni Mayorga Hemoglobin (Bld) [Mass/Vol] 14.5 g/dL Normal 12.0-16.0 [facility] Comment on above: Performed By: #### C BC #### [facility] [address] [place] [address] Dr. Dioni Mayorga IG # 0.02 10e3/ul Normal 0.00-0.03 [facility] Comment on above: Performed By: #### C BC #### [facility] [address] [place] [address] Dr. Dioni Mayorga IG % 0.3 % Normal 0.0-0.5 [facility] Comment on above: Performed By: #### C BC #### [facility] [address] [place] [address] Dr. Dioni Mayorga LYMPH # 2.7 103/ul Normal 1.2-3.8 [facility] Comment on above: Performed By: #### C BC #### [facility] [address] [place] [address] Dr. Dioni Mayorga Lymphocytes/100 WBC (Bld) 38.7 % Normal 20.5-60.0 [facility] Comment on above: Performed By: #### C BC #### [facility] [address] [place] [address] Dr. Dioni Mayorga MANUAL DIFF REQ NO Normal [facility] Comment on above: Performed By: #### C BC #### [facility] [address] [place] [address] Dr. Dioni Mayorga MCH (RBC) [Entitic mass] 28.4 pg Normal 26.7-34.0 [facility] Comment on above: Performed By: #### C BC #### [facility] [address] [place] [address] Dr. Dioni Mayorga MCHC (RBC) [Mass/Vol] 32.1 g/dL Normal 29.9-35.2 [facility] Comment on above: Performed By: #### C BC #### [facility] [address] [place] [address] Dr. Dioni Mayorga MCV (RBC) [Entitic vol] 88.5 fL Normal 81.0-99.0 [facility] Comment on above: Performed By: #### C BC #### [facility] [address] [address] [address] Dioni Mayorga MONO # 0.4 103/ul Normal 0.3-0.8 [facility] Comment on above: Performed By: #### C BC #### [facility] [address] [address] [address] Dioni Mayorga Monocytes/100 WBC (Bld) 6.2 % Normal 1.7-12.0 [facility] Comment on above: Performed By: #### C BC #### [facility] [address] [address] [address] Dioni Mayorga NEUT # 3.7 103/ul Normal 1.4-6.5 [facility] Comment on above: Performed By: #### C BC #### [facility] [address] [place] [address] Dr. Dioni Mayorga Neutrophils/100 WBC (Bld) 53.4 % Normal 43.0-75.0 [facility] Comment on above: Performed By: #### C BC #### [facility] [address] [place] [address] Dr. Dioni Mayorga Platelet mean volume (Bld) [Entitic vol] 10.4 fL Normal 9.5-13.5 [facility] Comment on above: Performed By: #### C BC #### [facility] [address] [place] [address] Dr. Dioni Mayorga PLT 340 103/ul Normal 150-450 [facility] Comment on above: Performed By: #### C BC #### [facility] [address] [place] [address] Dr. Dioni Mayorga RBC 5.11 106/ul Normal 4.20-5.40 [facility] Comment on above: Performed By: #### C BC #### [facility] [address] [place] [address] Dr. Dioni Mayorga WBC 6.9 103/ul Normal 4.0-11.0 [facility] Comment on above: Performed By: #### C BC #### [facility] [address] [address] [address] Dioni Mayorga FREE T3on 08-02-2021 FREE T3 1.49 pg/mlL Critically low 2.18-3.98 [facility] Comment on above: Performed By: #### F T3, LIPID, CMP, T7, TSH #### [facility] [address] [address] [address] Dioni Mayorga FREE THYROXINE INDEX T7on FTI 2.77 Normal 1.30-4.50 [facility] Comment on above: Performed By: #### F T3, LIPID, CMP, T7, TSH #### [facility] [address] [address] [address] Dioni Mayorga T3U 36.0 % Normal 30.0-39.0 [facility] Comment on above: Performed By: #### F T3, LIPID, CMP, T7, TSH #### [facility] [address] [place] [address] Dr. Dioni Mayorga T4 [Mass/Vol] 7.70 ug/dL Normal 4.80-13.90 [facility] Comment on above: Performed By: #### F T3, LIPID, CMP, T7, TSH #### [facility] [address] [address] [address] Dioni Mayorga GLYCOHEMOGLOBIN A1Con 2021 ADA RECOMMENDATION SEE BELOW Normal [facility] Comment on above: Result Comment: ADA RECOMMENDED LIMIT 4.0 - 6.0 ADA THERAPEUTIC TARGET < 7.0 ACTION SUGGESTED > 7.0 Performed By: #### A 1C #### [facility] [address] [place] [address] Dr. Dioni Mayorga Glucose [Mass/Vol] 111 mg/dL Normal [facility] Comment on above: Performed By: #### A 1C #### [facility] [address] [place] [address] Dr. Dioni Mayorga HbA1c (Bld) [Mass fraction] 5.5 % Normal 4.5-6.2 [facility] Comment on above: Performed By: #### A 1C #### [facility] [address] [address] [address] Dioni Mayorga LIPID PROFILEon 08-02-2021 CHOL-HDL RATIO NORM SEE BELOW Normal [facility] Comment on above: Result Comment: 3.3 - 4.4 LOW RISK 4.4 - 7.1 AVERAGE RISK 7.1 - 11.0 MODERATE RISK >11.0 HIGH RISK Performed By: #### F T3, LIPID, CMP, T7, TSH #### [facility] [address] [address] [address] Dioni Mayorga Cholesterol [Mass/Vol] 211 mg/dL Critically high <=200 [facility] Comment on above: Performed By: #### F T3, LIPID, CMP, T7, TSH #### [facility] [address] [address] [address] Dioni Mayorga Cholesterol in HDL [Mass/Vol] 48 mg/dL Normal 40-60 [facility] Comment on above: Performed By: #### F T3, LIPID, CMP, T7, TSH #### [facility] [address] [address] [address] Dioni Mayorga Cholesterol in LDL [Mass/Vol] 148.6 mg/dL Normal [facility] Comment on above: Performed By: #### F T3, LIPID, CMP, T7, TSH #### [facility] [address] [address] [address] Dioni Mayorga Cholesterol.total/Ch olesterol in HDL [Mass ratio] 4.4 {ratio} Normal [facility] Comment on above: Performed By: #### F T3, LIPID, CMP, T7, TSH #### [facility] [address] [address] [address] Dioni Mayorga HDL NORMAL > or = 60 mg/dl - LOW CARDIOVASCULAR RISK <40 mg/dl - HIGH CARDIOVASCULAR RISK Normal [facility] Comment on above: Performed By: #### F T3, LIPID, CMP, T7, TSH #### [facility] [address] [address] [address] Dioni Mayorga LDL CALC NORMAL SEE BELOW Normal [facility] Comment on above: Result Comment: <100 mg/dl OPTIMAL 100 - 129 mg/dl NEAR OR ABOVE OPTIMAL 130 - 159 mg/dl BORDERLINE HIGH 160 - 189 mg/dl HIGH >190 mg/dl VERY HIGH Performed By: #### F T3, LIPID, CMP, T7, TSH #### [facility] [address] [address] [address] Dioni Mayorga Triglyceride [Mass/Vol] 72 mg/dL Normal <=150 [facility] Comment on above: Performed By: #### F T3, LIPID, CMP, T7, TSH #### [facility] [address] [address] [address] Dioni Mayorga VLDL CALC 14.4 mg/dL Normal [facility] Comment on above: Performed By: #### F T3, LIPID, CMP, T7, TSH #### [facility] [address] [address] [address] Dioni Mayorga PROF 14(COMP METB)on 022 Albumin [Mass/Vol] 3.5 g/dL Normal 3.4-5.0 [facility] Comment on above: Performed By: #### F T3, LIPID, CMP, T7, TSH #### [facility] [address] [address] [address] Dioni Mayorga Albumin/Globulin [Mass ratio] 1.0 {ratio} Normal [facility] Comment on above: Performed By: #### F T3, LIPID, CMP, T7, TSH #### [facility] [address] [address] [address] Dioni Mayorga ALP [Catalytic activity/Vol] 62 U/L Normal 46-116 [facility] Comment on above: Performed By: #### F T3, LIPID, CMP, T7, TSH #### [facility] [address] [address] [address] Dioni Mayorga ALT [Catalytic activity/Vol] 20 U/L Normal 14-59 [facility] Comment on above: Performed By: #### F T3, LIPID, CMP, T7, TSH #### [facility] [address] [address] [address] Dioni Mayorga Anion gap [Moles/Vol] 14.0 mmol/L Normal [facility] Comment on above: Performed By: #### F T3, LIPID, CMP, T7, TSH #### [facility] [address] [address] [address] Dioni Mayorga AST [Catalytic activity/Vol] 12 U/L Critically low 15-37 [facility] Comment on above: Performed By: #### F T3, LIPID, CMP, T7, TSH #### [facility] [address] [address] [address] Dioni Mayorga Bilirubin [Mass/Vol] 0.4 mg/dL Normal 0.2-1.0 [facility] Comment on above: Performed By: #### F T3, LIPID, CMP, T7, TSH #### [facility] [address] [address] [address] Dioni Mayorga Calcium [Mass/Vol] 8.7 mg/dL Normal 8.5-10.1 [facility] Comment on above: Performed By: #### F T3, LIPID, CMP, T7, TSH #### [facility] [address] [address] [address] Dioni Mayorga Chloride [Moles/Vol] 105 mmol/L Normal 98-107 [facility] Comment on above: Performed By: #### F T3, LIPID, CMP, T7, TSH #### [facility] [address] [address] [address] Dioni Mayorga CO2 [Moles/Vol] 26.4 mmol/L Normal 21.0-32.0 [facility] Comment on above: Performed By: #### F T3, LIPID, CMP, T7, TSH #### [facility] [address] [address] [address] Dioni Mayorga Creatinine [Mass/Vol] 0.83 mg/dL Normal 0.55-1.02 [facility] Comment on above: Performed By: #### F T3, LIPID, CMP, T7, TSH #### [facility] [address] [place] [address] Dr. Dioni Mayorga EGFR-AF AUSTRIAN >60 Normal >=60 [facility] Comment on above: Performed By: #### F T3, LIPID, CMP, T7, TSH #### [facility] [address] [address] [address] Dioni Mayorga EGFR-NON AF AUSTRIAN >60 Normal >=60 [facility] Comment on above: Performed By: #### F T3, LIPID, CMP, T7, TSH #### [facility] [address] [address] [address] Dioni Mayorga Globulin (S) [Mass/Vol] 3.5 g/dL Normal [facility] Comment on above: Performed By: #### F T3, LIPID, CMP, T7, TSH #### [facility] [address] [address] [address] Dioni Mayorga Glucose [Mass/Vol] 78 mg/dL Normal 74-106 [facility] Comment on above: Performed By: #### F T3, LIPID, CMP, T7, TSH #### [facility] [address] [place] [address] Dr. Dioni Mayorga Potassium [Moles/Vol] 4.4 mmol/L Normal 3.5-5.1 [facility] Comment on above: Performed By: #### F T3, LIPID, CMP, T7, TSH #### [facility] [address] [address] [address] Dioni Mayorga Protein [Mass/Vol] 7.0 g/dL Normal 6.4-8.2 [facility] Comment on above: Performed By: #### F T3, LIPID, CMP, T7, TSH #### [facility] [address] [address] [address] Dioni Mayorga Sodium [Moles/Vol] 141 mmol/L Normal 136-145 [facility] Comment on above: Performed By: #### F T3, LIPID, CMP, T7, TSH #### [facility] [address] [address] [address] Dioni Mayorga Urea nitrogen [Mass/Vol] 16.0 mg/dL Normal 7.0-18.0 [facility] Comment on above: Performed By: #### F T3, LIPID, CMP, T7, TSH #### [facility] [address] [place] [address] Dr. Dioni Mayorga Urea nitrogen/Creatinine [Mass ratio] 19.3 mg/mg Normal [facility] Comment on above: Performed By: #### F T3, LIPID, CMP, T7, TSH #### [facility] [address] [place], [place] [address] Dr. Dioni Mayorga TSHon 08-02-2021 TSH 1.339 uIU/mL Normal 0.358-3.740 [facility] Comment on above: Performed By: #### F T3, LIPID, CMP, T7, TSH #### [facility] [address] [place], [place] [address] Dr. Dioni Mayorga Vital Signs Date Time Vital Sign Value Performing Clinician Faci lity 09-03-2021 08:51-0400 Blood Pressure Location MICHAEL NUGENT [facility] 09-03-2021 08:51-0400 Diastolic blood pressure 96 mm[Hg] MICHAEL NUGENT [facility] 09-03-2021 08:51-0400 Heart rate 106 /min MICHAEL UNGENT [facility] 09-03-2021 08:51-0400 Systolic blood pressure 138 mm[Hg] MICHAEL NUGENT [facility] Encounters Encounter Date Encounter Type Care Provider Facility Start: 09-13-2023 End: 09-13-2023 ambulatory Harish Cannon MD Facility:[facility] Start: 05-17-2023 End: 05-17-2023 ambulatory Harish Cannon MD Facility:[facility] Start: 04-19-2023 End: 04-19-2023 ambulatory Harish Cannon MD Facility:[facility] Start: 01-11-2023 End: 01-11-2023 ambulatory Harish Cannon MD Facility:[facility] Start: 12-07-2022 End: 12-07-2022 ambulatory Harish Cannon MD Facility:[facility] Start: 11-23-2022 End: 11-23-2022 ambulatory Harish Cannon MD Facility:[facility] Start: 11-02-2022 End: 11-02-2022 ambulatory Harish Cannon MD Facility:[facility] Start: 03-02-2022 End: 03-02-2022 ambulatory SALVADOR GROSS Facility:[facility] Start: 12-15-2021 End: 12-15-2021 ambulatory [facility] GROSS Facility:[facility] Start: 12-09-2021 End: 12-09-2021 ambulatory [facility] GROSS Facility:[facility] Start: 09-17-2021 End: 09-18-[address] MONIKA MATTHEWS Facility:[facility] Start: 09-03-[address] MONIKA MATTHEWS Facility :[facility] Start: 09-03-2021 End: 09-03-2021 Patient encounter procedure MICHAEL NUGENT [facility] Start: 08-05-2021 Encounter for genera l adult medical examination without abnormal findings DR MONIKA MATTHEWS [facility] Start: 08-02-2021 End: 08-03-[address] MONIKA MATTHEWS Facility:[facility] Start: 08-02-2021 End: 08-03-2021 Encounter for general adult medical examination without abnormal findings DR MONIKA MATTHEWS Facility:[facility] Procedures Date Procedure Procedure Detail Performing Clinician Hysterectomy MICHAEL NUGENT Immunizations Immunization Date Immunization Notes Care Provider Fa roly NEGATED: Highlighted row has not occurred!09-03-2021 SARS-CoV-2 mRNA (tozinameran 5y-11y) vaccine MICHAEL NUGENT [facility] Payers Date Payer Category Payer Unknown [id number] 2022 Unknown 2019 Unknown [id number] 1970 Unknown [id number] 2.16.84 [id number] 1970 Unknown [id number] 2.16.84 [id number] 1970 Unknown [id number] 2.16.84 [id number] 1970 Unknown [id number] 2.16.84 [id number] 1970 Unknown [id number] 2.16.84 [id number] 1970 Unknown [id number] 2.16.84 0.1.026494.3.579.2.593 1970 Unknown [id number] 2.16. 840.1.082402.3.579.2.196 1970 Unknown [id number] 2.16. 840.1.982932.3.579.2.196 1970 Unknown [id number] 2.16. 840.1.457713.3.579.2.196 1970 Unknown [id number] 2.16. 840.1.879097.3.579.2.196 1970 Unknown [id number] 2.16. 840.1.325967.3.579.2.196 1970 Unknown [id number] 2.16. 840.1.018432.3.579.2.196 1970 Unknown [id number] 2.16. 840.1.157331.3.579.2.196 Social History Date Type Detail Facility Start: 09-03-2021 Tobacco smoking status Never s moked tobacco (finding) [facility] Tobacco smoking status Never [facility] Sex Assigned At Female [facility] Functional Status Date Assessment Result Facility 09-03-2021 Functional Status N/A [facility] Discharge instructions 09-03-2021 Note Date & [...] nerve stimulation). For women, using a medical assistant to prevent urine leaks. This [...] right after experiencing incontinence. General instructions Take [id number] and prescription medicines only as told by [...] 03/11/2005 Document Revised: 02/11/2018 Document Reviewed: 05/13/2017 [employer] Patient Education 2020 [employer]. Follow Up Care 08/06/2021 08:10:07 With:pt will call once she decides how she would like to proceed Address:Unknown When: Unknown [facility] Evaluation + Plan note Note Date & Type Note Facility Evaluation + Plan note Future Appointments Appointment Date:09/17/2021 08:30:00 AM Scheduled Provider: Location:[facility] Appointment Type:URO Nurse Visit [facility] Hospital course Narrative Note Date & Type Note Facility Hospital course Narrative No data available for this section [facility] Progress note Note Date & Type Note Facility Progress note No data available for this section [facility] Summary Purpose Family History No Family History Records FoundNo Family History Records FoundNo Family History Records Found Advance Directives No Advanced Directives Records FoundNo Advanced Directives Records FoundNo Advanced Directives Records Found Additional Source Comments Care Team (unrecognized sect ion and content) Personnel Name: Monika Matthews MD Address: [address] [place] [address] INFORMATION SOURCE (unrecogn ized section and content) DATE CREATED AUTHOR 09/18/2021 [facility] DATE CREATED AUTHOR AUTHOR'S ORGANIZ ATION 03/02/2022 [facility] DATE CREATED AUTHOR AUTHOR'S ORGANIZ ATION 09/28/2023 [facility] FOR RECORDS PERTAINING TO PATIENTS WHO [...] BE BASED ON THE PRIMARY CLINICAL RECORDS. [facility] [employer] [facility]. provides no warranty or guarantee of the accuracy or completeness of information in this document.
== END 2023-10-22 08:35 | disposition home or self-care (01) ==
LOC: MAMMO 08:34
PROVIDERS: PCP Family Medicine; Visit Provider Family Medicine
DX: Z12.31 Encounter for screening mammogram for malignant neoplasm of breast (principal)
CPT/HCPCS: 77063; 77067

== ENCOUNTER 2023-11-17 07:56 | Outpatient (OUT) | payer BC, SELFPAY ==
--- OUTSIDE RECORDS SUMMARY | 2023-11-17 08:00 | XMS_ITS | CCD ---
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 Performed By: #### C VDTB ####[facility] [address] [place] [address]Dr. Dioni Mayorga INFLUENZA A AND B AGon 03-02 [facility] SEE BELOW Normal [facility] Comment on above: Result Comment: Nega tive for Flu A protein angiten. Infection due to Flu A cannot be ruled out. Flu A angiten in the sample may be below the detection limit of the test. Performed By: #### I NFLUAB #### [facility] [address] [place] [address] Dr. Dioni Mayorg[facility] BELOW Normal [facility] Comment on above: Result Comment: Nega tive for Flu B protein antigen. Infection due to Flu B cannot be ruled out. Flu B antigen in the sample may be below the detection limit of the test. Performed By: #### I NFLUAB #### [facility] [address] [place] [address] Dr. Dioni Mayorga INFLUENZA A AG Negative Normal NEGATIVE SEE COMMENT [facility] Comment on above: Performed By: #### I NFLUAB #### [facility] [address] [place] [address] Dr. Dioni Mayorga INFLUENZA B AG Negative Normal NEGATIVE SEE COMMENT [facility] Comment on above: Performed By: #### I NFLUAB #### [facility] [address] [place] [address] Dr. Dioni Mayorga ASYMPTOMATIC COVID-19 ANTIGE Non 12-15-2021 EUA Statement SEE BELOW Normal [facility] Comment on above: Result Comment: [...] sooner. Performed By: #### C VDAGA #### [facility] [address] [place] [address] Dr. Dioni Mayorga SARS-CoV-2 (COVID-19) RNA YAMILET+probe Ql (Unsp spec) Negative Normal NEGATIVE [facility] Comment on above: Result Comment: Nega tive results are presumptive. They do not preclude infection and should not be used as the sole basis for treatment decisions. Additional confirmatory testing by a molecular method should be considered. Performed By: #### C VDAGA #### [facility] [address] [place] [id number] [address] Dioni Mayorga [facility]on [facility]-16 SARS-CoV-2 (COVID-19) RNA YAMILET+probe Ql (Unsp spec) Detected Critically abnormal NOT DETECTED [facility] Comment on above: Result Comment: This test is not yet approved or cleared by the [place] FDA. When there are no FDA-approved or cleared tests available, and other criteria are met, FDA can make tests available under an emergency access mechanism called an Emergency Use Authorization (EUA). The EUA for this test is supported by the [place] of Health and Human Service's declaration that [...] longer be used). Performed By: #### C [facility] ####[facility] [address] [place], [place] [address]Fm. Dioni Mayorga MG MAMM SCREEN 3D DUSTIN CADon 09-17-2021 MG MAMM SCREEN 3D DUSTIN CAD Patient: BARBARA BACA Exam Date: 09/17/2021 : 1970 Gender:F Ordering : DR MONIKA MATTHEWS . Admission #: [id number] Family : Order #: [id number] CLICK HERE TO VIEW EXAM RADIOLOGY REPORT PROCEDURE: MAMMOGRAM SCREENING 3D BILATERAL CAD COMPARISON: MG MAMM SCREEN 3D DUSTIN CAD, 05/08/2020. MAMMO POST BIOPSY RIGHT, 01/04/2018. INDICATIONS: Screening mammography Calculator Name NCI Breast Cancer Risk Assessment Tool 5 Year Breast Cancer Risk 1.00% Lifetime Breast Cancer Risk 9.60% Personal Breast Cancer No Personal Ovarian Cancer No Treatments None Family Cancers None LOCATION: [facility] BREAST COMPOSITION: Scattered areas fibroglandular density. [...] M.D. on 09/17/2021 at 13:13 Normal [facility] Formson 09-04-2021 Forms [id number] #[id number]:127 Normal [facility] Patient Educationon 09-05-19 Patient Education Obstetrics [...] Take ove (more content not included)... Normal [facility] Physician Referralon 022 Physician Referral [id number]#1.00CD:127 Normal [facility] Urology Office/Clinic Noteon 09-04-2021 Urology Office/Clinic [...] had hysterectomy about 10 yrs ago. 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 [...] E&M of New Patient Moderate 45-59 Min 02528 Follow-up With When Contact Information pt will [...] - Not Given Postpone due to refusal [facility] Comment on above: Result Comment: Elec tronically Signed By: MICHAEL NUGENT PA-C\.br\Date and Time Signed: 09/04/21 09:42 EDT Ambulatory Visit Summaryon 0 09-03-2021 Ambulatory Visit Summary BARBARA BACA :1970 Visit Date:09/03/2021 Ambulatory Visit Instructions Your Diagnosis Stress incontinence Tests Performed Urnls Dip Stick Auto w/o Microscopy POC 61955 Your Care Team Attending Physician - MICHAEL [...] Urnls Dip Stick Auto w/o Microscopy POC 38788 (09/03/2021) Bilirubin Urine Dipstick - Negative Blood Urine Dipstick - Trace-intact Glucose Urine Dipstick - Negative Ketones Urine Dipstick - Negative Leukocytes Urine Dipstick - Negative Nitrite Urine Dipstick - Negative Protein Urine Dipstick - Negative Specific [place] Urine Dipstick - 1.020 Urine Appearance Urine Dipstick - Clear Urine Color Urine Dipstick - Yellow Urobilinogen Urine Dipstick - Normal 0.2-1 EU/dl pH Urine Dipstick - 5 Medications and Immunizations Administered Not Given SARS-CoV-2 mRNA (tozinameran 5y-11y) vac, Postpone due to refusal Allergies No Known Allergies No Known Medication Allergies Normal [facility] CBC AUTO DIFFon 08-02-2021 BASO # 0.0 103/ul Normal 0.0-0.1 [facility] Comment on above: Performed By: #### C BC #### [facility] [address] [place] [address] Dr. Dioni Mayorga Basophils/100 WBC (Bld) 0.4 % Normal 0.2-2.0 [facility] Comment on above: Performed By: #### C BC #### [facility] [address] [place] [address] Dr. Dioni Mayorga EO # 0.1 103/ul Normal 0.0-0.7 [facility] Comment on above: Performed By: #### C BC #### [facility] [address] [place] [address] Dr. Dioni Mayorga Eosinophils/100 WBC (Bld) 1.0 % Normal 0.9-7.0 [facility] Comment on above: Performed By: #### C BC #### [facility] [address] [place] [address] Dr. Dioni Mayorga Erythrocyte distribution width (RBC) [Ratio] 13.4 % Normal 11.0-15.0 [facility] Comment on above: Performed By: #### C BC #### [facility] [address] [place] [address] Dr. Dioni Mayorga Hematocrit (Bld) [Volume fraction] 45.2 % Normal 36.0-48.0 [facility] Comment on above: Performed By: #### C BC #### [facility] [address] [place] [address] Dr. Dioni Mayorga Hemoglobin (Bld) [Mass/Vol] 14.5 g/dL Normal 12.0-16.0 [facility] Comment on above: Performed By: #### C BC #### [facility] [address] [place] [address] Dr. Dioni Mayorga IG # 0.02 10e3/ul Normal 0.00-0.03 [facility] Comment on above: Performed By: #### C BC #### [facility] [address] [place] [address] Dr. Dioni Mayorga IG % 0.3 % Normal 0.0-0.5 [facility] Comment on above: Performed By: #### C BC #### [facility] [address] [place] [address] Dr. Dioni Mayorga LYMPH # 2.7 103/ul Normal 1.2-3.8 [facility] Comment on above: Performed By: #### C BC #### [facility] [address] [place] [address] Dr. Dioni Mayorga Lymphocytes/100 WBC (Bld) 38.7 % Normal 20.5-60.0 [facility] Comment on above: Performed By: #### C BC #### [facility] [address] [place] [address] Dr. Dioni Mayorga MANUAL DIFF REQ NO Normal [facility] Comment on above: Performed By: #### C BC #### [facility] [address] [place] [address] Dr. Dioni Mayorga MCH (RBC) [Entitic mass] 28.4 pg Normal 26.7-34.0 [facility] Comment on above: Performed By: #### C BC #### [facility] [address] [place] [address] Dr. Dioni Mayorga MCHC (RBC) [Mass/Vol] 32.1 g/dL Normal 29.9-35.2 [facility] Comment on above: Performed By: #### C BC #### [facility] [address] [place] [address] Dr. Dioni Mayorga MCV (RBC) [Entitic vol] 88.5 fL Normal 81.0-99.0 [facility] Comment on above: Performed By: #### C BC #### [facility] [address] [address] [address] Dioni Mayorga MONO # 0.4 103/ul Normal 0.3-0.8 [facility] Comment on above: Performed By: #### C BC #### [facility] [address] [address] [address] Dioni Mayorga Monocytes/100 WBC (Bld) 6.2 % Normal 1.7-12.0 [facility] Comment on above: Performed By: #### C BC #### [facility] [address] [address] [address] Dioni Mayorga NEUT # 3.7 103/ul Normal 1.4-6.5 [facility] Comment on above: Performed By: #### C BC #### [facility] [address] [place] [address] Dr. Dioni Mayorga Neutrophils/100 WBC (Bld) 53.4 % Normal 43.0-75.0 [facility] Comment on above: Performed By: #### C BC #### [facility] [address] [place] [address] Dr. Dioni Mayorga Platelet mean volume (Bld) [Entitic vol] 10.4 fL Normal 9.5-13.5 [facility] Comment on above: Performed By: #### C BC #### [facility] [address] [place] [address] Dr. Dioni Mayorga PLT 340 103/ul Normal 150-450 [facility] Comment on above: Performed By: #### C BC #### [facility] [address] [place] [address] Dr. Dioni Mayorga RBC 5.11 106/ul Normal 4.20-5.40 [facility] Comment on above: Performed By: #### C BC #### [facility] [address] [place] [address] Dr. Dioni Mayorga WBC 6.9 103/ul Normal 4.0-11.0 [facility] Comment on above: Performed By: #### C BC #### [facility] [address] [address] [address] Dioni Mayorga FREE T3on 08-02-2021 FREE T3 1.49 pg/mlL Critically low 2.18-3.98 [facility] Comment on above: Performed By: #### F T3, LIPID, CMP, T7, TSH #### [facility] [address] [address] [address] Dioni Mayorga FREE THYROXINE INDEX T7on FTI 2.77 Normal 1.30-4.50 [facility] Comment on above: Performed By: #### F T3, LIPID, CMP, T7, TSH #### [facility] [address] [address] [address] Dioni Mayorga T3U 36.0 % Normal 30.0-39.0 [facility] Comment on above: Performed By: #### F T3, LIPID, CMP, T7, TSH #### [facility] [address] [place] [address] Dr. Dioni Mayorga T4 [Mass/Vol] 7.70 ug/dL Normal 4.80-13.90 [facility] Comment on above: Performed By: #### F T3, LIPID, CMP, T7, TSH #### [facility] [address] [address] [address] Dioni Mayorga GLYCOHEMOGLOBIN A1Con 2021 ADA RECOMMENDATION SEE BELOW Normal [facility] Comment on above: Result Comment: ADA RECOMMENDED LIMIT 4.0 - 6.0 ADA THERAPEUTIC TARGET < 7.0 ACTION SUGGESTED > 7.0 Performed By: #### A 1C #### [facility] [address] [place] [address] Dr. Dioni Mayorga Glucose [Mass/Vol] 111 mg/dL Normal [facility] Comment on above: Performed By: #### A 1C #### [facility] [address] [place] [address] Dr. Dioni Mayorga HbA1c (Bld) [Mass fraction] 5.5 % Normal 4.5-6.2 [facility] Comment on above: Performed By: #### A 1C #### [facility] [address] [address] [address] Dioni Mayorga LIPID PROFILEon 08-02-2021 CHOL-HDL RATIO NORM SEE BELOW Normal [facility] Comment on above: Result Comment: 3.3 - 4.4 LOW RISK 4.4 - 7.1 AVERAGE RISK 7.1 - 11.0 MODERATE RISK >11.0 HIGH RISK Performed By: #### F T3, LIPID, CMP, T7, TSH #### [facility] [address] [address] [address] Dioni Mayorga Cholesterol [Mass/Vol] 211 mg/dL Critically high <=200 [facility] Comment on above: Performed By: #### F T3, LIPID, CMP, T7, TSH #### [facility] [address] [address] [address] Dioni Mayorga Cholesterol in HDL [Mass/Vol] 48 mg/dL Normal 40-60 [facility] Comment on above: Performed By: #### F T3, LIPID, CMP, T7, TSH #### [facility] [address] [address] [address] Dioni Mayorga Cholesterol in LDL [Mass/Vol] 148.6 mg/dL Normal [facility] Comment on above: Performed By: #### F T3, LIPID, CMP, T7, TSH #### [facility] [address] [address] [address] Dioni Mayorga Cholesterol.total/Ch olesterol in HDL [Mass ratio] 4.4 {ratio} Normal [facility] Comment on above: Performed By: #### F T3, LIPID, CMP, T7, TSH #### [facility] [address] [address] [address] Dioni Mayorga HDL NORMAL > or = 60 mg/dl - LOW CARDIOVASCULAR RISK <40 mg/dl - HIGH CARDIOVASCULAR RISK Normal [facility] Comment on above: Performed By: #### F T3, LIPID, CMP, T7, TSH #### [facility] [address] [address] [address] Dioni Mayorga LDL CALC NORMAL SEE BELOW Normal [facility] Comment on above: Result Comment: <100 mg/dl OPTIMAL 100 - 129 mg/dl NEAR OR ABOVE OPTIMAL 130 - 159 mg/dl BORDERLINE HIGH 160 - 189 mg/dl HIGH >190 mg/dl VERY HIGH Performed By: #### F T3, LIPID, CMP, T7, TSH #### [facility] [address] [address] [address] Dioni Mayorga Triglyceride [Mass/Vol] 72 mg/dL Normal <=150 [facility] Comment on above: Performed By: #### F T3, LIPID, CMP, T7, TSH #### [facility] [address] [address] [address] Dioni Mayorga VLDL CALC 14.4 mg/dL Normal [facility] Comment on above: Performed By: #### F T3, LIPID, CMP, T7, TSH #### [facility] [address] [address] [address] Dioni Mayorga PROF 14(COMP METB)on 022 Albumin [Mass/Vol] 3.5 g/dL Normal 3.4-5.0 [facility] Comment on above: Performed By: #### F T3, LIPID, CMP, T7, TSH #### [facility] [address] [address] [address] Dioni Mayorga Albumin/Globulin [Mass ratio] 1.0 {ratio} Normal [facility] Comment on above: Performed By: #### F T3, LIPID, CMP, T7, TSH #### [facility] [address] [address] [address] Dioni Mayorga ALP [Catalytic activity/Vol] 62 U/L Normal 46-116 [facility] Comment on above: Performed By: #### F T3, LIPID, CMP, T7, TSH #### [facility] [address] [address] [address] Dioni Mayorga ALT [Catalytic activity/Vol] 20 U/L Normal 14-59 [facility] Comment on above: Performed By: #### F T3, LIPID, CMP, T7, TSH #### [facility] [address] [address] [address] Dioni Mayorga Anion gap [Moles/Vol] 14.0 mmol/L Normal [facility] Comment on above: Performed By: #### F T3, LIPID, CMP, T7, TSH #### [facility] [address] [address] [address] Dioni Mayorga AST [Catalytic activity/Vol] 12 U/L Critically low 15-37 [facility] Comment on above: Performed By: #### F T3, LIPID, CMP, T7, TSH #### [facility] [address] [address] [address] Dioni Mayorga Bilirubin [Mass/Vol] 0.4 mg/dL Normal 0.2-1.0 [facility] Comment on above: Performed By: #### F T3, LIPID, CMP, T7, TSH #### [facility] [address] [address] [address] Dioni Mayorga Calcium [Mass/Vol] 8.7 mg/dL Normal 8.5-10.1 [facility] Comment on above: Performed By: #### F T3, LIPID, CMP, T7, TSH #### [facility] [address] [address] [address] Dioni Mayorga Chloride [Moles/Vol] 105 mmol/L Normal 98-107 [facility] Comment on above: Performed By: #### F T3, LIPID, CMP, T7, TSH #### [facility] [address] [address] [address] Dioni Mayorga CO2 [Moles/Vol] 26.4 mmol/L Normal 21.0-32.0 [facility] Comment on above: Performed By: #### F T3, LIPID, CMP, T7, TSH #### [facility] [address] [address] [address] Dioni Mayorga Creatinine [Mass/Vol] 0.83 mg/dL Normal 0.55-1.02 [facility] Comment on above: Performed By: #### F T3, LIPID, CMP, T7, TSH #### [facility] [address] [place] [address] Dr. Dioni Mayorga EGFR-AF TAIWANESE >60 Normal >=60 [facility] Comment on above: Performed By: #### F T3, LIPID, CMP, T7, TSH #### [facility] [address] [address] [address] Dioni Mayorga EGFR-NON AF TAIWANESE >60 Normal >=60 [facility] Comment on above: Performed By: #### F T3, LIPID, CMP, T7, TSH #### [facility] [address] [address] [address] Dioni Mayorga Globulin (S) [Mass/Vol] 3.5 g/dL Normal [facility] Comment on above: Performed By: #### F T3, LIPID, CMP, T7, TSH #### [facility] [address] [address] [address] Dioni Mayorga Glucose [Mass/Vol] 78 mg/dL Normal 74-106 [facility] Comment on above: Performed By: #### F T3, LIPID, CMP, T7, TSH #### [facility] [address] [place] [address] Dr. Dioni Mayorga Potassium [Moles/Vol] 4.4 mmol/L Normal 3.5-5.1 [facility] Comment on above: Performed By: #### F T3, LIPID, CMP, T7, TSH #### [facility] [address] [address] [address] Dioni Mayorga Protein [Mass/Vol] 7.0 g/dL Normal 6.4-8.2 [facility] Comment on above: Performed By: #### F T3, LIPID, CMP, T7, TSH #### [facility] [address] [address] [address] Dioni Mayorga Sodium [Moles/Vol] 141 mmol/L Normal 136-145 [facility] Comment on above: Performed By: #### F T3, LIPID, CMP, T7, TSH #### [facility] [address] [address] [address] Dioni Mayorga Urea nitrogen [Mass/Vol] 16.0 mg/dL Normal 7.0-18.0 [facility] Comment on above: Performed By: #### F T3, LIPID, CMP, T7, TSH #### [facility] [address] [place] [address] Dr. Dioni Mayorga Urea nitrogen/Creatinine [Mass ratio] 19.3 mg/mg Normal [facility] Comment on above: Performed By: #### F T3, LIPID, CMP, T7, TSH #### [facility] [address] [place], [place] [address] Dr. Dioin Mayorga TSHon 08-02-2021 TSH 1.339 uIU/mL Normal 0.358-3.740 [facility] Comment on above: Performed By: #### F T3, LIPID, CMP, T7, TSH #### [facility] [address] [place], [place] [address] Dr. Dioni Mayorga Vital Signs Date Time Vital Sign Value Performing Clinician Faci lity 09-03-2021 08:51-0400 Blood Pressure Location MICHAEL NUGENT [facility] 09-03-2021 08:51-0400 Diastolic blood pressure 96 mm[Hg] MICHAEL NUGENT [facility] 09-03-2021 08:51-0400 Heart rate 106 /min MICHAEL NUGENT [facility] 09-03-2021 08:51-0400 Systolic blood pressure 138 mm[Hg] MICHAEL NUGENT [facility] Encounters Encounter Date Encounter Type Care Provider Facility Start: 09-13-2023 End: 09-13-2023 ambulatory Harish Cannon MD Facility:[facility] Start: 05-17-2023 End: 05-17-2023 ambulatory Harish Cannon MD Facility:[facility] Start: 04-19-2023 End: 04-19-2023 ambulatory Harish Cannon MD Facility:[facility] Start: 01-11-2023 End: 01-11-2023 ambulatory Harish Cannon MD Facility:[facility] Start: 12-07-2022 End: 12-07-2022 ambulatory Harish Cannon MD Facility:[facility] Start: 11-23-2022 End: 11-23-2022 ambulatory Harish Cannon MD Facility:[facility] Start: 11-02-2022 End: 11-02-2022 ambulatory Harish Cannon MD Facility:[facility] Start: 03-02-2022 End: 03-02-2022 ambulatory SALVADOR GROSS Facility:[facility] Start: 12-15-2021 End: 12-15-2021 ambulatory SALVADOR GROSS Facility:[facility] Start: 12-09-2021 End: 12-09-2021 ambulatory SALVADOR GROSS Facility:[facility] Start: 09-17-2021 End: 09-18-[address] MONIKA MATTHEWS Facility:[facility] Start: 09-03-[address] MONIKA MATTHEWS Facility :[facility] Start: 09-03-2021 End: 09-03-2021 Patient encounter procedure MICHAEL NUGENT [facility] Start: 08-05-2021 Encounter for genera l adult medical examination without abnormal findings DR MONIKA MATTHEWS [facility] Start: 08-02-2021 End: 08-03-[address] MONIKA MATTHEWS Facility:[facility] Start: 08-02-2021 End: 08-03-2021 Encounter for general adult medical examination without abnormal findings DR MONIKA MATTHEWS Facility:[facility] Procedures Date Procedure Procedure Detail Performing Clinician Hysterectomy MICHAEL NUGENT Immunizations Immunization Date Immunization Notes Care Provider Fa roly NEGATED: Highlighted row has not occurred!09-03-2021 SARS-CoV-2 mRNA (tozinameran 5y-11y) vaccine MICHAEL NUGENT [facility] Payers Date Payer Category Payer Unknown [id number] 2022 Unknown 2019 Unknown [id number] 1970 Unknown [id number] 2.16.84 [id number] 1970 Unknown [id number] 2.16.84 [id number] 1970 Unknown [id number] 2.16.84 0.1.327302.3.579.2.593 1970 Unknown [id number] 2.16.84 0.1.114167.3.579.2.593 1970 Unknown [id number] 2.16.84 0.1.857028.3.579.2.593 1970 Unknown [id number] 2.16.84 0.1.548886.3.579.2.593 1970 Unknown [id number] 2.16. 840.1.642104.3.579.2.196 1970 Unknown [id number] 2.16. 840.1.352033.3.579.2.196 1970 Unknown [id number] 2.16. 840.1.666285.3.579.2.196 1970 Unknown [id number] 2.16. 840.1.929010.3.579.2.196 1970 Unknown [id number] 2.16. 840.1.812810.3.579.2.196 1970 Unknown [id number] 2.16. 840.1.957184.3.579.2.196 1970 Unknown [id number] 2.16. 840.1.541422.3.579.2.196 Social History Date Type Detail Facility Start: 09-03-2021 Tobacco smoking status Never s moked tobacco (finding) [facility] Tobacco smoking status Never [facility] Neil Sex Assigned At Female [facility] Functional Status Date Assessment Result Facility 09-03-2021 Functional Status N/A [facility] Discharge instructions 09-03-2021 Note Date & [...] nerve stimulation). For women, using a medical office technician to prevent urine leaks. This is a [...] right after experiencing incontinence. General instructions Take dwuj-ewj-eypslyj and prescription medicines only as told by [...] 03/11/2005 Document Revised: 02/11/2018 Document Reviewed: 05/13/2017 [employer] Patient Education 2020 [employer]. Follow Up Care 08/06/2021 08:10:07 With:pt will call once she decides how she would like to proceed Address:Unknown When: Unknown [facility] Evaluation + Plan note Note Date & Type Note Facility Evaluation + Plan note Future Appointments Appointment Date:09/17/2021 08:30:00 AM Scheduled Provider: Location:[facility] Appointment Type:URO Nurse Visit [facility] Hospital course Narrative Note Date & Type Note Facility Hospital course Narrative No data available for this section [facility] Progress note Note Date & Type Note Facility Progress note No data available for this section [facility] Summary Purpose Family History No Family History Records FoundNo Family History Records FoundNo Family History Records Found Advance Directives No Advanced Directives Records FoundNo Advanced Directives Records FoundNo Advanced Directives Records Found Additional Source Comments Care Team (unrecognized sect ion and content) Personnel Name: Monika Matthews MD Address: [address] [place] [address] INFORMATION SOURCE (unrecogn ized section and content) DATE CREATED AUTHOR 09/18/2021 [facility] DATE CREATED AUTHOR AUTHOR'S ORGANIZ ATION 03/02/2022 [facility] DATE CREATED AUTHOR AUTHOR'S ORGANIZ ATION 09/28/2023 [facility] FOR RECORDS PERTAINING TO PATIENTS WHO ARE [...] THE PRIMARY CLINICAL RECORDS. [facility] [employer] [facility]. provides no warranty or guarantee of the accuracy or completeness of information in this document.
--- NOTE | 2023-11-17 08:42 | P.CN_ITS ---
Consult Note: HPI Data of Consult Patient: known to practice within the last 3 years Consult date: 04/19/23 Requesting Physician: Therese Montelongo NP Primary Care Provider: Romero Dykes MD Consult Narrative Reason for consult: chronic low back pain Narrative: 52yof who presents for assessment of chronic low back pain. Patient previously evaluated by Dr Cannon and MRI imaging was consistent with lumbar radiculopathy/lumbar stenosis with NC. Patient continues to engage in HEP greater than 6 weeks. Patient has found benefit to tizanidine 4-8mg HS and diclofenac 100mg BID PRN without side effects. Recent bilateral L5-S1 TFESI providing 50% improvement ongoing in pain and functional ability. noticing increase in low back pain and left sided NC symptoms. Patient has not been using tizanidine as often, concerned with dependence as she notices it helps her sleep and she doesn't want to be dependent on it to sleep. Pain today 5/10 increasing to 7/10 at the worse. pain increased with standing too long, sitting too long, walking, activity, and sleep. cc:: CC: Therese Montelongo NP Review of Systems ROS Status of ROS 10 or more systems reviewed and unremark able except as noted in history and below Musculoskeletal Reports: back pain PFSH PFSH Medical History Low back ache ?M54.50 - Low back pain, unspecified (ICD-10) Obesity ?E66.9 - Obesity, unspecified (ICD-10) Surgical History H/O tooth extraction ?K08.409 - Partial loss of teeth, unspecified cause, unspecified class (ICD- 10) H/O: hysterectomy ?Z90.710 - Acquired absence of both cervix and uterus (ICD-10) Social History Smoking status: Never smoker Meds Home Medications and Allergies Home Medications ?Medication ?Instructions ?Recorded ?Confirmed ?Type ibuprofen 200 mg capsule 800 mg PO Q12H PRN pain 11/02/22 09/13/23 History loratadine-pseudoephedrine ER 10 1 tab PO DAILY 11/02/22 09/13/23 History mg-240 mg tablet,extended [id number] (Claritin-D 24 Hour) tizanidine 4 mg tablet 4 mg PO BID PRN muscle spasticity 12/02/22 09/13/23 Rx #45 tabs diclofenac sodium 100 mg mg PO 09/13/23 History tablet,extended release 24 hr Allergies Allergy/AdvReac Type Severity Reaction Status Date / Time No Known Drug Allergies Allergy Verified 09/13/23 07:17 Exam Constitutional Documenting provider has reviewed patient's vital signs: yes Common normals: no apparent distress, oriented x3, healthy appearing, alert and well nourished General appearance: cooperative Nutritional appearance: obese HENMI Common normals: normocephalic, hearing grossly normal bilaterally and moist oral mucous membranes Head and scalp: normocephalic Eye Common normals: PERRL Pupil: PERRL Neck & C-Spine Common normals: full ROM General: normal visual inspection Chest Common normals: inspection of chest normal Respiratory Common normals: normal respiratory effort, no retractions and no use of accessory muscles Back & Pelvis Common normals: no CVA tenderness Lumbar spine/lower back: normal to inspection, lumbar ROM normal, ROM limited and straight leg raise negative bilaterally Other: strength 5/5 BLE sensation intact intermittent pain to left L4/5 L5/S1 with standing walking and lying flat/on her side. pain improved with forward flexion Extremity Common normals: normal to inspection and full ROM Neuro Common normals: oriented x3, CN's II-XII intact bilaterally, moves all extremities, no focal motor deficits, no sensory deficits noted and deep tendon reflexes 2+ bilaterally Sensorium/orientation: alert Motor exam: strength 5/5 throughout and no movement abnormalities noted Psych Common normals: mental status grossly normal, thought process normal, cooperative, affect normal, speech normal and activity/motor behavior normal Speech: normal speech Thought process: normal thought process Results Additional Findings Additional findings: If on a controlled substance or opioids, I have checked an [place]ARRS report on this patient and there are no aberrancies noted in the prescribing history.??If on a controlled substance or opioid a drug screen was completed and reviewed within the last year, and if there has not been a drug screen completed we ordered one today to monitor higher risk, state monitored pain medication use. As part of providing excellent, safe, comprehensive care, the following was completed at our patient's visit: 1. A medication reconciliation and review to ensure accurate knowledge of current/active medications, including asking our patients to inform us about any [id number]-[id number] medications or herbal remedies/nutritional supplem ents/alternative remedies. 2. A review to specifically ensure our patients have had annual screening for screening for depression, screening for tobacco use, and screening for unhealthy alcohol use. For concerning screenings had a discussion with the patient, provided patient education, and recommended follow-up with primary care provider when appropriate. If patient noted with a risk of falling, they received education on strength, gait, and balance training to prevent future risk of falling. Assessment and Plan Assessment and Plan (1) Lumbar stenosis without neurogenic claudication: (2) Lumbar radiculopathy: (3) Myalgia, other site: (4) Lumbar spondylosis: Plan stop tizanidine, start baclofen 5-10mg HS PRN pain/spasms declining gabapentin, can call for 100mg BID for lumbar stenosis with NC if symptoms worsen or fail to improve continue diclofenac 100mg BID PRN, denies side effects continue PRN TENS DIRECTOR OF COMPLIANCE reviewed and signed f/u 3 weeks
== END 2023-11-17 07:57 | disposition home or self-care (01) ==
LOC: PM 07:56
PROVIDERS: PCP Family Medicine; Visit Provider Nurse Practitioner
DX: M48.062 Spinal stenosis, lumbar region with neurogenic claudication (principal); M54.16 Radiculopathy, lumbar region; M79.18 Myalgia, other site; M47.816 Spondylosis without myelopathy or radiculopathy, lumbar region
CPT/HCPCS: G0463

== ENCOUNTER 2023-12-07 09:52 | Outpatient (OUT) | payer BC, SELFPAY ==
--- NOTE | 2023-12-07 | CONS_ITS ---
CONSULTATION DATE: 12/07/2023 TO: Romero Dykes M.D. CHIEF COMPLAINT: Includes severe buttock pain, hip pain occurring bilaterally, worse on the left than the right side. HISTORY: She reports the pain as being 4-7/10 pain, deep aching in character with a sharp component, increased with activities such as standing, walking and performing transitioning maneuvers. She feels most comfortable in the semi- recumbent position. Denies any change in bowel and bladder habits or new sensory motor change in the lower extremities, but she reports having tingling/numbness over her hip areas bilaterally. Her RIZWAN on today?s visit is 34%. CURRENT MEDICATION: Include ibuprofen 600 mg up to b.i.d. p.r.n., baclofen 5-10 mg at h.s., diclofenac 100 mg b.i.d. EXAMINATION: Notable for patient having no clinical radiculopathy or myelopathy or myelopathy involving the lower extremities. Patient did have significant dysesthesia and hyperesthesia overlying the distribution of the superior gluteal nerve, occurring bilaterally. She also had a positive left sided ROBBI sign, suggestive of left hip joint related pain clinically and myofascial spasm involving the gluteus medius and gluteus zohra bilaterally, more significant on the left than the right side. 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 RECOMMENDATIONS: I have recommended a diagnostic bilateral superior gluteal nerve injection under fluoroscopic guidance. I have asked her to discontinue ibuprofen and diclofenac secondary to ineffectiveness. Will trial her on Celebrex 200 mg b.i.d and proceed with a left hip x-ray. As part of providing excellent, safe, comprehensive care, the following was completed at our patient's visit: 1. A medication reconciliation and review to ensure accurate knowledge of current/active medications, including asking our patients to inform us about any agsm-irc-vawrwaf medications or herbal remedies/nutritional supplements/alternative remedies. 2. A review to specifically ensure our patients have had annual screening for: elevated body mass index (BMI, see intake chart for exact total), tobacco use, screening for depression, and screening for unhealthy alcohol use. When screening is concerning, patients are provided with education and the specific recommendation to discuss the concerning health issue and treatment options with their primary care provider [facility]
--- OUTSIDE RECORDS SUMMARY | 2023-12-07 10:12 | XMS_ITS | CCD ---
Author Organization [facility] [employer]iniSy[employer] Care Team Providers Care Ropeman Name Role Phone Monika Matthews Primary Care Physician [phone] DR MONIKA MATTHEWS Admitting Unavailable CASSIE, DR [...] Value Interpretation Reference Range Facility Covid-19 PCR ([facility])on 02-15 SARS-CoV-2 (COVID-19) RNA YAMILET+probe Ql (Unsp spec) Not detected Normal NOT DETECTED [facility] Comment on above: Result Comment: When [...] for this test is supported by the [place] of Health and Human Service's declaration that [...] be used). Performed By: #### C VDTB ####[facility] [id number] [place] [address]Dr. Dioni Mayorga INFLUENZA A AND B AGon 03-02 [facility] SEE BELOW Normal [facility] Comment on above: Result Comment: Nega tive for Flu A protein angiten. Infection due to Flu A cannot be ruled out. Flu A angiten in the sample may be below the detection limit of the test. Performed By: #### I NFLUAB #### [facility] [address] [place] [address] Dr. Dioni [facility] Normal [facility] Comment on above: Result Comment: Nega tive for Flu B protein antigen. Infection due to Flu B cannot be ruled out. Flu B antigen in the sample may be below the detection limit of the test. Performed By: #### I NFLUAB #### [facility] [address] [place] [address] Dr. Dioni Mayorga INFLUENZA A AG Negative Normal NEGATIVE SEE COMMENT [facility] Comment on above: Performed By: #### I NFLUAB #### [facility] [address] [place] [address] Dr. Dioni Mayorga INFLUENZA B AG Negative Normal NEGATIVE SEE COMMENT [facility] Comment on above: Performed By: #### I NFLUAB #### [facility] [address] [place] [address] Dr. Dioni Mayorga ASYMPTOMATIC COVID-19 ANTIGE Non 12-15-2021 EUA Statement SEE BELOW Normal [facility] Comment on above: Result Comment: This [...] sooner. Performed By: #### C VDAGA #### [facility] [address] [place] [address] Dr. Dioni Mayorga SARS-CoV-2 (COVID-19) RNA YAMILET+probe Ql (Unsp spec) Negative Normal NEGATIVE [facility] Comment on above: Result Comment: Nega tive results are presumptive. They do not preclude infection and should not be used as the sole basis for treatment decisions. Additional confirmatory testing by a molecular method should be considered. Performed By: #### C VDAGA #### [facility] [address] [place] [address] [id number] [address] Dioni Mayorga [facility]on 11-16 SARS-CoV-2 (COVID-19) RNA YAMILET+probe Ql (Unsp spec) Detected Critically abnormal NOT DETECTED [facility] Comment on above: Result Comment: This test is not yet approved or cleared by the [place] FDA. When there are no FDA-approved or cleared tests available, and other criteria are met, FDA can make tests available under an emergency access mechanism called an Emergency Use Authorization (EUA). The EUA for this test is supported by the [place] of Health and Human Service's declaration that [...] longer be used). Performed By: #### C [facility] ####[facility] [id number] [place], [place] [address]Hd. Dioni Mayorga MG MAMM SCREEN 3D DUSTIN CADon 09-17-2021 MG MAMM SCREEN 3D DUSTIN CAD Patient: BARBARA BACA Exam Date: 09/17/2021 : 1970 Gender:F Ordering : DR MONIKA MATTHEWS . Admission #: [id number] Family : Order #: [id number] CLICK HERE TO VIEW EXAM RADIOLOGY REPORT PROCEDURE: MAMMOGRAM SCREENING 3D BILATERAL CAD COMPARISON: MG MAMM SCREEN 3D DUSTIN CAD, 05/08/2020. MAMMO POST BIOPSY RIGHT, 01/04/2018. INDICATIONS: Screening mammography Calculator Name NCI Breast Cancer Risk Assessment Tool 5 Year Breast Cancer Risk 1.00% Lifetime Breast Cancer Risk 9.60% Personal Breast Cancer No Personal Ovarian Cancer No Treatments None Family Cancers None LOCATION: [facility] BREAST COMPOSITION: Scattered areas fibroglandular density. [...] Rodarte M.D. on 09/17/2021 at 13:13 Normal [facility] Formson 09-04-2021 Forms [id number] #[id number]:127 Normal [facility] Patient Educationon 09-05-19 Patient Education Obstetrics and [...] Take ove (more content not included)... Normal [facility] Physician Referralon 022 Physician Referral [phone] [id number]#[id number]:127 Normal [facility] Urology Office/Clinic Noteon 09-04-2021 Urology Office/Clinic Note [...] had hysterectomy about 10 yrs ago. previous NEON TECHNICIAN advised her bladder had dropped a bit. [...] E&M of New Patient Moderate 45-59 Min 84753 Follow-up With When Contact Information pt will [...] - Not Given Postpone due to refusal [facility] Comment on above: Result Comment: Elec tronically Signed By: MICHAEL NUGENT PA-C\.br\Date and Time Signed: 09/04/21 09:42 EDT Ambulatory Visit Summaryon 0 09-03-2021 Ambulatory Visit Summary BARBARA BACA :1970 Visit Date:09/03/2021 Ambulatory Visit Instructions Your Diagnosis Stress incontinence Tests Performed Urnls Dip Stick Auto w/o Microscopy POC 74326 Your Care Team Attending Physician - MICHAEL [...] Urnls Dip Stick Auto w/o Microscopy POC 58914 (09/03/2021) Bilirubin Urine Dipstick - Negative Blood Urine Dipstick - Trace-intact Glucose Urine Dipstick - Negative Ketones Urine Dipstick - Negative Leukocytes Urine Dipstick - Negative Nitrite Urine Dipstick - Negative Protein Urine Dipstick - Negative Specific [place] Urine Dipstick - 1.020 Urine Appearance Urine Dipstick - Clear Urine Color Urine Dipstick - Yellow Urobilinogen Urine Dipstick - Normal 0.2-1 EU/dl pH Urine Dipstick - 5 Medications and Immunizations Administered Not Given SARS-CoV-2 mRNA (tozinameran 5y-11y) vac, Postpone due to refusal Allergies No Known Allergies No Known Medication Allergies Normal [facility] CBC AUTO DIFFon 08-02-2021 BASO # 0.0 103/ul Normal 0.0-0.1 [facility] Comment on above: Performed By: #### C BC #### [facility] [address] [place] [address] Dr. Dioni Mayorga Basophils/100 WBC (Bld) 0.4 % Normal 0.2-2.0 [facility] Comment on above: Performed By: #### C BC #### [facility] [address] [place] [address] Dr. Dioni Mayorga EO # 0.1 103/ul Normal 0.0-0.7 [facility] Comment on above: Performed By: #### C BC #### [facility] [address] [place] [address] Dr. Dioni Mayorga Eosinophils/100 WBC (Bld) 1.0 % Normal 0.9-7.0 [facility] Comment on above: Performed By: #### C BC #### [facility] [address] [place] [address] Dr. Dioni Mayorga Erythrocyte distribution width (RBC) [Ratio] 13.4 % Normal 11.0-15.0 [facility] Comment on above: Performed By: #### C BC #### [facility] [address] [place] [address] Dr. Dioni Mayorga Hematocrit (Bld) [Volume fraction] 45.2 % Normal 36.0-48.0 [facility] Comment on above: Performed By: #### C BC #### [facility] [address] [place] [address] Dr. Dioni Mayorga Hemoglobin (Bld) [Mass/Vol] 14.5 g/dL Normal 12.0-16.0 [facility] Comment on above: Performed By: #### C BC #### [facility] [address] [place] [address] Dr. Dioni Mayorga IG # 0.02 10e3/ul Normal 0.00-0.03 [facility] Comment on above: Performed By: #### C BC #### [facility] [address] [place] [address] Dr. Dioni Mayorga IG % 0.3 % Normal 0.0-0.5 [facility] Comment on above: Performed By: #### C BC #### [facility] [address] [place] [address] Dr. Dioni Mayorga LYMPH # 2.7 103/ul Normal 1.2-3.8 [facility] Comment on above: Performed By: #### C BC #### [facility] [address] [place] [address] Dr. Dioni Mayorga Lymphocytes/100 WBC (Bld) 38.7 % Normal 20.5-60.0 [facility] Comment on above: Performed By: #### C BC #### [facility] [address] [place] [address] Dr. Dioni Mayorga MANUAL DIFF REQ NO Normal [facility] Comment on above: Performed By: #### C BC #### [facility] [address] [place] [address] Dr. Dioni Mayorga MCH (RBC) [Entitic mass] 28.4 pg Normal 26.7-34.0 [facility] Comment on above: Performed By: #### C BC #### [facility] [address] [place] [address] Dr. Dioni Mayorga MCHC (RBC) [Mass/Vol] 32.1 g/dL Normal 29.9-35.2 [facility] Comment on above: Performed By: #### C BC #### [facility] [address] [place] [address] Dr. Dioni Mayorga MCV (RBC) [Entitic vol] 88.5 fL Normal 81.0-99.0 [facility] Comment on above: Performed By: #### C BC #### [facility] [address] [address] [address] Dioni Mayorga MONO # 0.4 103/ul Normal 0.3-0.8 [facility] Comment on above: Performed By: #### C BC #### [facility] [address] [address] [address] Dioni Mayorga Monocytes/100 WBC (Bld) 6.2 % Normal 1.7-12.0 [facility] Comment on above: Performed By: #### C BC #### [facility] [address] [address] [address] Dioni Mayorga NEUT # 3.7 103/ul Normal 1.4-6.5 [facility] Comment on above: Performed By: #### C BC #### [facility] [address] [place] [address] Dr. Dioni Mayorga Neutrophils/100 WBC (Bld) 53.4 % Normal 43.0-75.0 [facility] Comment on above: Performed By: #### C BC #### [facility] [address] [place] [address] Dr. Dioni Mayorga Platelet mean volume (Bld) [Entitic vol] 10.4 fL Normal 9.5-13.5 [facility] Comment on above: Performed By: #### C BC #### [facility] [address] [place] [address] Dr. Dioni Mayorga PLT 340 103/ul Normal 150-450 [facility] Comment on above: Performed By: #### C BC #### [facility] [address] [place] [address] Dr. Dioni Mayorga RBC 5.11 106/ul Normal 4.20-5.40 [facility] Comment on above: Performed By: #### C BC #### [facility] [address] [place] [address] Dr. Dioni Mayorga WBC 6.9 103/ul Normal 4.0-11.0 [facility] Comment on above: Performed By: #### C BC #### [facility] [address] [address] [address] Dioni Mayorga FREE T3on 08-02-2021 FREE T3 1.49 pg/mlL Critically low 2.18-3.98 [facility] Comment on above: Performed By: #### F T3, LIPID, CMP, T7, TSH #### [facility] [address] [address] [address] Dioni Mayorga FREE THYROXINE INDEX T7on FTI 2.77 Normal 1.30-4.50 [facility] Comment on above: Performed By: #### F T3, LIPID, CMP, T7, TSH #### [facility] [address] [address] [address] Dioni Mayorga T3U 36.0 % Normal 30.0-39.0 [facility] Comment on above: Performed By: #### F T3, LIPID, CMP, T7, TSH #### [facility] [address] [place] [address] Dr. Dioni Mayorga T4 [Mass/Vol] 7.70 ug/dL Normal 4.80-13.90 [facility] Comment on above: Performed By: #### F T3, LIPID, CMP, T7, TSH #### [facility] [address] [address] [address] Dioni Mayorga GLYCOHEMOGLOBIN A1Con 2021 ADA RECOMMENDATION SEE BELOW Normal [facility] Comment on above: Result Comment: ADA RECOMMENDED LIMIT 4.0 - 6.0 ADA THERAPEUTIC TARGET < 7.0 ACTION SUGGESTED > 7.0 Performed By: #### A 1C #### [facility] [address] [place] [address] Dr. Dioni Mayorga Glucose [Mass/Vol] 111 mg/dL Normal [facility] Comment on above: Performed By: #### A 1C #### [facility] [address] [place] [address] Dr. Dioni Mayorga HbA1c (Bld) [Mass fraction] 5.5 % Normal 4.5-6.2 [facility] Comment on above: Performed By: #### A 1C #### [facility] [address] [address] [address] Dioni Mayorga LIPID PROFILEon 08-02-2021 CHOL-HDL RATIO NORM SEE BELOW Normal [facility] Comment on above: Result Comment: 3.3 - 4.4 LOW RISK 4.4 - 7.1 AVERAGE RISK 7.1 - 11.0 MODERATE RISK >11.0 HIGH RISK Performed By: #### F T3, LIPID, CMP, T7, TSH #### [facility] [address] [address] [address] Dioni Mayorga Cholesterol [Mass/Vol] 211 mg/dL Critically high <=200 [facility] Comment on above: Performed By: #### F T3, LIPID, CMP, T7, TSH #### [facility] [address] [address] [address] Dioni Mayorga Cholesterol in HDL [Mass/Vol] 48 mg/dL Normal 40-60 [facility] Comment on above: Performed By: #### F T3, LIPID, CMP, T7, TSH #### [facility] [address] [address] [address] Dioni Mayorga Cholesterol in LDL [Mass/Vol] 148.6 mg/dL Normal [facility] Comment on above: Performed By: #### F T3, LIPID, CMP, T7, TSH #### [facility] [address] [address] [address] Dioni Mayorga Cholesterol.total/Ch olesterol in HDL [Mass ratio] 4.4 {ratio} Normal [facility] Comment on above: Performed By: #### F T3, LIPID, CMP, T7, TSH #### [facility] [address] [address] [address] Dioni Mayorga HDL NORMAL > or = 60 mg/dl - LOW CARDIOVASCULAR RISK <40 mg/dl - HIGH CARDIOVASCULAR RISK Normal [facility] Comment on above: Performed By: #### F T3, LIPID, CMP, T7, TSH #### [facility] [address] [address] [address] Dioni Mayorga LDL CALC NORMAL SEE BELOW Normal [facility] Comment on above: Result Comment: <100 mg/dl OPTIMAL 100 - 129 mg/dl NEAR OR ABOVE OPTIMAL 130 - 159 mg/dl BORDERLINE HIGH 160 - 189 mg/dl HIGH >190 mg/dl VERY HIGH Performed By: #### F T3, LIPID, CMP, T7, TSH #### [facility] [address] [address] [address] Dioni Mayorga Triglyceride [Mass/Vol] 72 mg/dL Normal <=150 [facility] Comment on above: Performed By: #### F T3, LIPID, CMP, T7, TSH #### [facility] [address] [address] [address] Dioni Mayorga VLDL CALC 14.4 mg/dL Normal [facility] Comment on above: Performed By: #### F T3, LIPID, CMP, T7, TSH #### [facility] [address] [address] [address] Dioni Mayorga PROF 14(COMP METB)on 022 Albumin [Mass/Vol] 3.5 g/dL Normal 3.4-5.0 [facility] [place] Comment on above: Performed By: #### F T3, LIPID, CMP, T7, TSH #### [facility] [address] [address] [address] Dioni Mayorga Albumin/Globulin [Mass ratio] 1.0 {ratio} Normal [facility] Comment on above: Performed By: #### F T3, LIPID, CMP, T7, TSH #### [facility] [address] [address] [address] Dioni Mayorga ALP [Catalytic activity/Vol] 62 U/L Normal 46-116 [facility] Comment on above: Performed By: #### F T3, LIPID, CMP, T7, TSH #### [facility] [address] [address] [address] Dioni Mayorga ALT [Catalytic activity/Vol] 20 U/L Normal 14-59 [facility] Comment on above: Performed By: #### F T3, LIPID, CMP, T7, TSH #### [facility] [address] [address] [address] Dioni Mayorga Anion gap [Moles/Vol] 14.0 mmol/L Normal [facility] Comment on above: Performed By: #### F T3, LIPID, CMP, T7, TSH #### [facility] [address] [address] [address] Dioni Mayorga AST [Catalytic activity/Vol] 12 U/L Critically low 15-37 [facility] Comment on above: Performed By: #### F T3, LIPID, CMP, T7, TSH #### [facility] [address] [address] [address] Dioni Mayorga Bilirubin [Mass/Vol] 0.4 mg/dL Normal 0.2-1.0 [facility] Comment on above: Performed By: #### F T3, LIPID, CMP, T7, TSH #### [facility] [address] [address] [address] Dioni Mayorga Calcium [Mass/Vol] 8.7 mg/dL Normal 8.5-10.1 [facility] [place] Comment on above: Performed By: #### F T3, LIPID, CMP, T7, TSH #### [facility] [address] [address] [address] Dioni Mayorga Chloride [Moles/Vol] 105 mmol/L Normal 98-107 [facility] Comment on above: Performed By: #### F T3, LIPID, CMP, T7, TSH #### [facility] [address] [address] [address] Dioni Mayorga CO2 [Moles/Vol] 26.4 mmol/L Normal 21.0-32.0 [facility] Comment on above: Performed By: #### F T3, LIPID, CMP, T7, TSH #### [facility] [address] [address] [address] Dioni Mayorga Creatinine [Mass/Vol] 0.83 mg/dL Normal 0.55-1.02 [facility] Comment on above: Performed By: #### F T3, LIPID, CMP, T7, TSH #### [facility] [address] [place] [address] Dr. Dioni Mayorga EGFR-AF MALDIVIAN >60 Normal >=60 [facility] Comment on above: Performed By: #### F T3, LIPID, CMP, T7, TSH #### [facility] [address] [address] [address] Dioni Mayogra EGFR-NON AF MALDIVIAN >60 Normal >=60 [facility] Comment on above: Performed By: #### F T3, LIPID, CMP, T7, TSH #### [facility] [address] [address] [address] Dioni Mayorga Globulin (S) [Mass/Vol] 3.5 g/dL Normal [facility] Comment on above: Performed By: #### F T3, LIPID, CMP, T7, TSH #### [facility] [address] [address] [address] Dioni Mayorga Glucose [Mass/Vol] 78 mg/dL Normal 74-106 [facility] Comment on above: Performed By: #### F T3, LIPID, CMP, T7, TSH #### [facility] [address] [place] [address] Dr. Dioni Mayorga Potassium [Moles/Vol] 4.4 mmol/L Normal 3.5-5.1 [facility] Comment on above: Performed By: #### F T3, LIPID, CMP, T7, TSH #### [facility] [address] [address] [address] Dioni Mayorga Protein [Mass/Vol] 7.0 g/dL Normal 6.4-8.2 [facility] Comment on above: Performed By: #### F T3, LIPID, CMP, T7, TSH #### [facility] [address] [address] [address] Dioni Mayorga Sodium [Moles/Vol] 141 mmol/L Normal 136-145 [facility] Comment on above: Performed By: #### F T3, LIPID, CMP, T7, TSH #### [facility] [address] [address] [address] Dioni Mayorga Urea nitrogen [Mass/Vol] 16.0 mg/dL Normal 7.0-18.0 [facility] Comment on above: Performed By: #### F T3, LIPID, CMP, T7, TSH #### [facility] [address] [place] [address] Dr. Dioni Mayorga Urea nitrogen/Creatinine [Mass ratio] 19.3 mg/mg Normal [facility] Comment on above: Performed By: #### F T3, LIPID, CMP, T7, TSH #### [facility] [address] [place], [place] [address] Dr. Dioni Mayorga TSHon 08-02-2021 TSH 1.339 uIU/mL Normal 0.358-3.740 [facility] Comment on above: Performed By: #### F T3, LIPID, CMP, T7, TSH #### [facility] [address] [place], [place] [address] Dr. Dioni Mayorga Vital Signs Date Time Vital Sign Value Performing Clinician Faci lity 09-03-2021 08:51-0400 Blood Pressure Location MICHAEL NUGENT [facility] 09-03-2021 08:51-0400 Diastolic blood pressure 96 mm[Hg] MICHAEL NUGENT [facility] 09-03-2021 08:51-0400 Heart rate 106 /min MICHAEL NUGENT [facility] 09-03-2021 08:51-0400 Systolic blood pressure 138 mm[Hg] MICHAEL NUGENT [facility] Encounters Encounter Date Encounter Type Care Provider Facility Start: 09-13-2023 End: 09-13-2023 ambulatory Harish Cannon MD Facility:[facility] Start: 05-17-2023 End: 05-17-2023 ambulatory Harish Cannon MD Facility:[facility] Start: 04-19-2023 End: 04-19-2023 ambulatory Harish Cannon MD Facility:[facility] Start: 01-11-2023 End: 01-11-2023 ambulatory Harish Cannon MD Facility:[facility] Start: 12-07-2022 End: 12-07-2022 ambulatory Harish Cannon MD Facility:[facility] Start: 11-23-2022 End: 11-23-2022 ambulatory Harish Cannon MD Facility:[facility] Start: 11-02-2022 End: 11-02-2022 ambulatory Harish Cannon MD Facility:[facility] Start: 03-02-2022 End: 03-02-2022 ambulatory SALVADOR GROSS Facility:[facility] Start: 12-15-2021 End: 12-15-2021 ambulatory SALVADOR GROSS Facility:[facility] Start: 12-09-2021 End: 12-09-2021 ambulatory SALVADOR GROSS Facility:[facility] Start: 09-17-2021 End: 09-18-[address] MONIKA MATTHEWS Facility:[facility] Start: 09-03-[address] MONIKA MATTHEWS Facility :[facility] Start: 09-03-2021 End: 09-03-2021 Patient encounter procedure MICHAEL NUGENT [facility] Start: 08-05-2021 Encounter for genera l adult medical examination without abnormal findings DR MONIKA MATTHEWS [facility] Start: 08-02-2021 End: 08-03-[address] MONIKA MATTHEWS Facility:[facility] Start: 08-02-2021 End: 08-03-2021 Encounter for general adult medical examination without abnormal findings DR MONIKA MATTHEWS Facility:[facility] Procedures Date Procedure Procedure Detail Performing Clinician Hysterectomy MICHAEL NUGENT Immunizations Immunization Date Immunization Notes Care Provider Fa roly NEGATED: Highlighted row has not occurred!09-03-2021 SARS-CoV-2 mRNA (tozinameran 5y-11y) vaccine MICHAEL NUGENT [facility] Payers Date Payer Category Payer Unknown [id number] 2022 Unknown 2019 Unknown [id number] 1970 Unknown [id number] 2.16.84 [id number] 1970 Unknown [id number] 2.16.84 [id number] 1970 Unknown [id number] 2.16.84 0.1.965076.3.579.2.593 1970 Unknown [id number] 2.16.84 0.1.047545.3.579.2.593 1970 Unknown [id number] 2.16.84 0.1.065231.3.579.2.593 1970 Unknown [id number] 2.16.84 0.1.212987.3.579.2.593 1970 Unknown [id number] 2.16. 840.1.462241.3.579.2.196 1970 Unknown [id number] 2.16. 840.1.748734.3.579.2.196 1970 Unknown [id number] 2.16. 840.1.845815.3.579.2.196 1970 Unknown [id number] 2.16. 840.1.177522.3.579.2.196 1970 Unknown [id number] 2.16. 840.1.707038.3.579.2.196 1972 Unknown [id number] 2.16. 840.1.106710.3.579.2.196 1970 Unknown [id number] 2.16. 840.1.571231.3.579.2.196 Social History Date Type Detail Facility Start: 09-03-2021 Tobacco smoking status Never s moked tobacco (finding) [facility] Tobacco smoking status Never [facility] [place] Sex Assigned At Female [facility] [place] Functional Status Date Assessment Result Facility 09-03-2021 Functional Status N/A [facility] Discharge instructions 09-03-2021 Note Date & [...] stimulation). For women, using a certified medical biller to prevent urine leaks. This is a [...] right after experiencing incontinence. General instructions Take yhds-goa-hhwinyq and prescription medicines only as told by [...] 03/11/2005 Document Revised: 02/11/2018 Document Reviewed: 05/13/2017 [employer] Patient Education 2020 [employer]. Follow Up Care 08/06/2021 08:10:07 With:pt will call once she decides how she would like to proceed Address:Unknown When: Unknown [facility] Evaluation + Plan note Note Date & Type Note Facility Evaluation + Plan note Future Appointments Appointment Date:09/17/2021 08:30:00 AM Scheduled Provider: Location:[facility] Appointment Type:URO Nurse Visit [facility] Hospital course Narrative Note Date & Type Note Facility Hospital course Narrative No data available for this section [facility] Progress note Note Date & Type Note Facility Progress note No data available for this section [facility] Summary Purpose Family History No Family History Records FoundNo Family History Records FoundNo Family History Records Found Advance Directives No Advanced Directives Records FoundNo Advanced Directives Records FoundNo Advanced Directives Records Found Additional Source Comments Care Team (unrecognized sect ion and content) Personnel Name: Monika Matthews MD Address: [address] [place] [address] INFORMATION SOURCE (unrecogn ized section and content) DATE CREATED AUTHOR 09/18/2021 [facility] DATE CREATED AUTHOR AUTHOR'S ORGANIZ ATION 03/02/2022 [facility] DATE CREATED AUTHOR AUTHOR'S ORGANIZ ATION 09/28/2023 [facility] FOR RECORDS PERTAINING TO PATIENTS WHO ARE [...] BE BASED ON THE PRIMARY CLINICAL RECORDS. [facility]. provides no warranty or guarantee of the accuracy or completeness of information in this document.
== END 2023-12-07 09:53 | disposition home or self-care (01) ==
LOC: PM 09:52
PROVIDERS: PCP Family Medicine; Visit Provider Anesthesiology Pain Medicine
DX: M25.552 Pain in left hip (principal); M16.12 Unilateral primary osteoarthritis, left hip; M25.551 Pain in right hip; M79.18 Myalgia, other site
CPT/HCPCS: 73502; G0463

== ENCOUNTER 2023-12-07 13:30 | Outpatient (OUT) | payer BC, SELFPAY ==
--- NOTE | 2023-12-07 13:33 | XR_ITS ---
[facility] [place] [id number] Patient Name: JONATHAN BACA MRN: [id number] date: 1970 Sex: F Assigned Patient Location: LAB Current Patient Location: [facility] Accession/Order Number: [id number] Exam Date: 12/07/2023 13:40 Report Date: 12/12/2023 06:55 At the request of: GAIL ROCA Procedure: XR hip LT min 2V PROCEDURE: XR hip LT min 2V HISTORY: Left Hip Pain COMPARISON: None. FINDINGS: BONES:Slight narrowing of the superior aspect of the left hip joint space. Small degenerative osteophyte along the superior and posterior rim of the acetabulum. Unremarkable femoral head. SOFT TISSUES:No visible soft tissue swelling. EFFUSION:None visible. OTHER: Negative. XR/XR hip LT min 2V IMPRESSION: 1. 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 Electronically authenticated by: GUERDA NALYOR Date: 12/12/2023 06:55
--- OUTSIDE RECORDS SUMMARY | 2023-12-07 13:51 | XMS_ITS | CCD ---
Author Organization [facility] CliniSyin Care Team Providers Care Oxygen Equipment Technician Name Role Phone Monika Matthews Primary Care Physician [phone] DR MONIKA MATTHEWS Admitting Unavailable CASSIE, DR FRNAK Attending Unavailable CASSIE, DR FRANK Primary Care Unavailable CASSEI, DR FRANK Consulting Unavailable ZIEBER, DR ANUPAM [...] Value Interpretation Reference Range Facility Covid-19 PCR ([facility])on 02-15 SARS-CoV-2 (COVID-19) RNA YAMILET+probe Ql (Unsp spec) Not detected Normal NOT DETECTED [facility] Comment on above: Result Comment: When [...] for this test is supported by the [place] of Health and Human Service's declaration that [...] be used). Performed By: #### C VDTB ####[facility] [address] [address]Dr. Dioni Mayorga INFLUENZA A AND B AGon 03-02 [facility] SEE BELOW Normal [facility] Comment on above: Result Comment: Nega tive for Flu A protein angiten. Infection due to Flu A cannot be ruled out. Flu A angiten in the sample may be below the detection limit of the test. Performed By: #### I NFLUAB #### [facility] [address] [place] [address] Dr. Dioni Mayorg[facility] SEE BELOW Normal [facility] Comment on above: Result Comment: Nega tive for Flu B protein antigen. Infection due to Flu B cannot be ruled out. Flu B antigen in the sample may be below the detection limit of the test. Performed By: #### I NFLUAB #### [facility] [address] [place] [address] Dr. Dioni Mayorga INFLUENZA A AG Negative Normal NEGATIVE SEE COMMENT [facility] Comment on above: Performed By: #### I NFLUAB #### [facility] [address] [place] [address] Dr. Dioni Mayorga INFLUENZA B AG Negative Normal NEGATIVE SEE COMMENT [facility] Comment on above: Performed By: #### I NFLUAB #### [facility] [address] [place] [address] Dr. Dioni Mayorga ASYMPTOMATIC COVID-19 ANTIGE Non 12-15-2021 EUA Statement SEE BELOW Normal [facility] Comment on above: Result Comment: This [...] sooner. Performed By: #### C VDAGA #### [facility] [address] [place] [address] Dr. Dioni Mayorga SARS-CoV-2 (COVID-19) RNA YAMILET+probe Ql (Unsp spec) Negative Normal NEGATIVE [facility] Comment on above: Result Comment: Nega tive results are presumptive. They do not preclude infection and should not be used as the sole basis for treatment decisions. Additional confirmatory testing by a molecular method should be considered. Performed By: #### C VDAGA #### [facility] [address] [place] [address] [address] Dioni Mayorga [facility]16 SARS-CoV-2 (COVID-19) RNA YAMILET+probe Ql (Unsp spec) Detected Critically abnormal NOT DETECTED [facility] Comment on above: Result Comment: This test is not yet approved or cleared by the [place] FDA. When there are no FDA-approved or cleared tests available, and other criteria are met, FDA can make tests available under an emergency access mechanism called an Emergency Use Authorization (EUA). The EUA for this test is supported by the [place] of Health and Human Service's declaration [...] longer be used). Performed By: #### C [facility] ####[facility] [address] [place], [place] [address]Vn. Dioni Mayorga MG MAMM SCREEN 3D DUSTIN CADon 09-17-2021 MG MAMM SCREEN 3D DUSTIN CAD Patient: BARBARA BACA Exam Date: 09/17/2021 : 1970 Gender:F Ordering : DR MONIKA MATTHEWS . Admission #: [id number] Family : Order #: [id number] CLICK HERE TO VIEW EXAM RADIOLOGY REPORT PROCEDURE: MAMMOGRAM SCREENING 3D BILATERAL CAD COMPARISON: MG MAMM SCREEN 3D DUSTIN CAD, 05/08/2020. MAMMO POST BIOPSY RIGHT, 01/04/2018. INDICATIONS: Screening mammography Calculator Name NCI Breast Cancer Risk Assessment Tool 5 Year Breast Cancer Risk 1.00% Lifetime Breast Cancer Risk 9.60% Personal Breast Cancer No Personal Ovarian Cancer No Treatments None Family Cancers None LOCATION: [facility] BREAST COMPOSITION: Scattered areas fibroglandular density. [...] Rodarte M.D. on 09/17/2021 at 13:13 Normal [facility] Formson 09-04-2021 Forms [id number] #1.00CD:127 Normal [facility] Patient Educationon 09-05-19 Patient Education [...] Take ove (more content not included)... Normal [facility] Physician Referralon 022 Physician Referral [id number]#1.00CD:127 Normal [facility] Urology Office/Clinic Noteon 09-04-2021 Urology [...] had hysterectomy about 10 yrs ago. previous [employer] advised her bladder had dropped a bit. [...] E&M of New Patient Moderate 45-59 Min [id number] Follow-up With When Contact Information pt will [...] to refusal [facility] Comment on above: Result Comment: Elec tronically Signed By: MICHAEL NUGENT PA-C\.br\Date and Time Signed: 09/04/21 09:42 EDT Ambulatory Visit Summaryon 0 09-03-2021 Ambulatory Visit Summary BARBARA BACA :1970 Visit Date:09/03/2021 Ambulatory Visit Instructions Your Diagnosis Stress incontinence Tests Performed Urnls Dip Stick Auto w/o Microscopy POC 40194 Your Care Team Attending Physician - MICHAEL [...] Urnls Dip Stick Auto w/o Microscopy POC 53611 (09/03/2021) Bilirubin Urine Dipstick - Negative Blood Urine Dipstick - Trace-intact Glucose Urine Dipstick - Negative Ketones Urine Dipstick - Negative Leukocytes Urine Dipstick - Negative Nitrite Urine Dipstick - Negative Protein Urine Dipstick - Negative Specific [place] Urine Dipstick - 1.020 Urine Appearance Urine Dipstick - Clear Urine Color Urine Dipstick - Yellow Urobilinogen Urine Dipstick - Normal 0.2-1 EU/dl pH Urine Dipstick - 5 Medications and Immunizations Administered Not Given SARS-CoV-2 mRNA (tozinameran 5y-11y) vac, Postpone due to refusal Allergies No Known Allergies No Known Medication Allergies Normal [facility] CBC AUTO DIFFon 08-02-2021 BASO # 0.0 103/ul Normal 0.0-0.1 [facility] Comment on above: Performed By: #### C BC #### [facility] [address] [place] [address] Dr. Dioni Mayorga Basophils/100 WBC (Bld) 0.4 % Normal 0.2-2.0 [facility] Comment on above: Performed By: #### C BC #### [facility] [address] [place] [address] Dr. Dioni Mayorga EO # 0.1 103/ul Normal 0.0-0.7 [facility] Comment on above: Performed By: #### C BC #### [facility] [address] [place] [address] Dr. Dioni Mayorga Eosinophils/100 WBC (Bld) 1.0 % Normal 0.9-7.0 [facility] Comment on above: Performed By: #### C BC #### [facility] [address] [place] [address] Dr. Dioni Mayorga Erythrocyte distribution width (RBC) [Ratio] 13.4 % Normal 11.0-15.0 [facility] Comment on above: Performed By: #### C BC #### [facility] [address] [place] [address] Dr. Dioni Mayorga Hematocrit (Bld) [Volume fraction] 45.2 % Normal 36.0-48.0 [facility] Comment on above: Performed By: #### C BC #### [facility] [address] [place] [address] Dr. Dioni Mayorga Hemoglobin (Bld) [Mass/Vol] 14.5 g/dL Normal 12.0-16.0 [facility] Comment on above: Performed By: #### C BC #### [facility] [address] [place] [address] Dr. Doini Mayorga IG # 0.02 10e3/ul Normal 0.00-0.03 [facility] Comment on above: Performed By: #### C BC #### [facility] [address] [place] [address] Dr. Dioni Mayorga IG % 0.3 % Normal 0.0-0.5 [facility] Comment on above: Performed By: #### C BC #### [facility] [address] [place] [address] Dr. Dioni Mayorga LYMPH # 2.7 103/ul Normal 1.2-3.8 [facility] Comment on above: Performed By: #### C BC #### [facility] [address] [place] [address] Dr. Dioni Mayorga Lymphocytes/100 WBC (Bld) 38.7 % Normal 20.5-60.0 [facility] Comment on above: Performed By: #### C BC #### [facility] [address] [place] [address] Dr. Dioni Mayorga MANUAL DIFF REQ NO Normal [facility] Comment on above: Performed By: #### C BC #### [facility] [address] [place] [address] Dr. Dioni Mayorga MCH (RBC) [Entitic mass] 28.4 pg Normal 26.7-34.0 [facility] Comment on above: Performed By: #### C BC #### [facility] [address] [place] [address] Dr. Dioni Mayorga MCHC (RBC) [Mass/Vol] 32.1 g/dL Normal 29.9-35.2 [facility] Comment on above: Performed By: #### C BC #### [facility] [address] [place] [address] Dr. Dioni Mayorga MCV (RBC) [Entitic vol] 88.5 fL Normal 81.0-99.0 [facility] Comment on above: Performed By: #### C BC #### [facility] [address] [address] [address] Dioni Mayorga MONO # 0.4 103/ul Normal 0.3-0.8 [facility] Comment on above: Performed By: #### C BC #### [facility] [address] [address] [address] Dioni Mayorga Monocytes/100 WBC (Bld) 6.2 % Normal 1.7-12.0 [facility] Comment on above: Performed By: #### C BC #### [facility] [address] [address] [address] Dioni Mayorga NEUT # 3.7 103/ul Normal 1.4-6.5 [facility] Comment on above: Performed By: #### C BC #### [facility] [address] [place] [address] Dr. Dioni Mayorag Neutrophils/100 WBC (Bld) 53.4 % Normal 43.0-75.0 [facility] Comment on above: Performed By: #### C BC #### [facility] [address] [place] [address] Dr. Dioni Mayorga Platelet mean volume (Bld) [Entitic vol] 10.4 fL Normal 9.5-13.5 [facility] Comment on above: Performed By: #### C BC #### [facility] [address] [place] [address] Dr. Dioni Mayorga PLT 340 103/ul Normal 150-450 [facility] Comment on above: Performed By: #### C BC #### [facility] [address] [place] [address] Dr. Dioni Mayorga RBC 5.11 106/ul Normal 4.20-5.40 [facility] Comment on above: Performed By: #### C BC #### [facility] [address] [place] [address] Dr. Dioni Mayorga WBC 6.9 103/ul Normal 4.0-11.0 [facility] Comment on above: Performed By: #### C BC #### [facility] [address] [address] [address] Dioni Mayorga FREE T3on 08-02-2021 FREE T3 1.49 pg/mlL Critically low 2.18-3.98 [facility] Comment on above: Performed By: #### F T3, LIPID, CMP, T7, TSH #### [facility] [address] [address] [address] Dioni Mayorga FREE THYROXINE INDEX T7on FTI 2.77 Normal 1.30-4.50 [facility] Comment on above: Performed By: #### F T3, LIPID, CMP, T7, TSH #### [facility] [address] [address] [address] Dioni Mayorga T3U 36.0 % Normal 30.0-39.0 [facility] Comment on above: Performed By: #### F T3, LIPID, CMP, T7, TSH #### [facility] [address] [place] [address] Dr. Dioni Mayorga T4 [Mass/Vol] 7.70 ug/dL Normal 4.80-13.90 [facility] Comment on above: Performed By: #### F T3, LIPID, CMP, T7, TSH #### [facility] [address] [address] [address] Dioni Mayorga GLYCOHEMOGLOBIN A1Con 2021 ADA RECOMMENDATION SEE BELOW Normal [facility] Comment on above: Result Comment: ADA RECOMMENDED LIMIT 4.0 - 6.0 ADA THERAPEUTIC TARGET < 7.0 ACTION SUGGESTED > 7.0 Performed By: #### A 1C #### [facility] [address] [place] [address] Dr. Dioni Mayorga Glucose [Mass/Vol] 111 mg/dL Normal [facility] Comment on above: Performed By: #### A 1C #### [facility] [address] [place] [address] Dr. Dioni Mayorga HbA1c (Bld) [Mass fraction] 5.5 % Normal 4.5-6.2 [facility] Comment on above: Performed By: #### A 1C #### [facility] [address] [address] [address] Dioni Mayorga LIPID PROFILEon 08-02-2021 CHOL-HDL RATIO NORM SEE BELOW Normal [facility] Comment on above: Result Comment: 3.3 - 4.4 LOW RISK 4.4 - 7.1 AVERAGE RISK 7.1 - 11.0 MODERATE RISK >11.0 HIGH RISK Performed By: #### F T3, LIPID, CMP, T7, TSH #### [facility] [address] [address] [address] Dioni Mayorga Cholesterol [Mass/Vol] 211 mg/dL Critically high <=200 [facility] Comment on above: Performed By: #### F T3, LIPID, CMP, T7, TSH #### [facility] [address] [address] [address] Dioni Mayorga Cholesterol in HDL [Mass/Vol] 48 mg/dL Normal 40-60 [facility] Comment on above: Performed By: #### F T3, LIPID, CMP, T7, TSH #### [facility] [address] [address] [address] Dioni Mayorga Cholesterol in LDL [Mass/Vol] 148.6 mg/dL Normal [facility] Comment on above: Performed By: #### F T3, LIPID, CMP, T7, TSH #### [facility] [address] [address] [address] Dioni Mayorga Cholesterol.total/Ch olesterol in HDL [Mass ratio] 4.4 {ratio} Normal [facility] Comment on above: Performed By: #### F T3, LIPID, CMP, T7, TSH #### [facility] [address] [address] [address] Dioni Mayorga HDL NORMAL > or = 60 mg/dl - LOW CARDIOVASCULAR RISK <40 mg/dl - HIGH CARDIOVASCULAR RISK Normal [facility] Comment on above: Performed By: #### F T3, LIPID, CMP, T7, TSH #### [facility] [address] [address] [address] Dioni Mayorga LDL CALC NORMAL SEE BELOW Normal [facility] Comment on above: Result Comment: <100 mg/dl OPTIMAL 100 - 129 mg/dl NEAR OR ABOVE OPTIMAL 130 - 159 mg/dl BORDERLINE HIGH 160 - 189 mg/dl HIGH >190 mg/dl VERY HIGH Performed By: #### F T3, LIPID, CMP, T7, TSH #### [facility] [address] [address] [address] Dioni Mayorga Triglyceride [Mass/Vol] 72 mg/dL Normal <=150 [facility] Comment on above: Performed By: #### F T3, LIPID, CMP, T7, TSH #### [facility] [address] [address] [address] Dioni Mayorga VLDL CALC 14.4 mg/dL Normal [facility] Comment on above: Performed By: #### F T3, LIPID, CMP, T7, TSH #### [facility] [address] [address] [address] Dioni Mayorga PROF 14(COMP METB)on 022 Albumin [Mass/Vol] 3.5 g/dL Normal 3.4-5.0 [facility] Comment on above: Performed By: #### F T3, LIPID, CMP, T7, TSH #### [facility] [address] [address] [address] Dioni Mayorga Albumin/Globulin [Mass ratio] 1.0 {ratio} Normal [facility] Comment on above: Performed By: #### F T3, LIPID, CMP, T7, TSH #### [facility] [address] [address] [address] Dioni Mayorga ALP [Catalytic activity/Vol] 62 U/L Normal 46-116 [facility] Comment on above: Performed By: #### F T3, LIPID, CMP, T7, TSH #### [facility] [address] [address] [address] Dioni Mayorga ALT [Catalytic activity/Vol] 20 U/L Normal 14-59 [facility] Comment on above: Performed By: #### F T3, LIPID, CMP, T7, TSH #### [facility] [address] [address] [address] Dioni Mayorga Anion gap [Moles/Vol] 14.0 mmol/L Normal [facility] Comment on above: Performed By: #### F T3, LIPID, CMP, T7, TSH #### [facility] [address] [address] [address] Dioni Mayorga AST [Catalytic activity/Vol] 12 U/L Critically low 15-37 [facility] Comment on above: Performed By: #### F T3, LIPID, CMP, T7, TSH #### [facility] [address] [address] [address] Dioni Mayorga Bilirubin [Mass/Vol] 0.4 mg/dL Normal 0.2-1.0 [facility] Comment on above: Performed By: #### F T3, LIPID, CMP, T7, TSH #### [facility] [address] [address] [address] Dioni Mayorga Calcium [Mass/Vol] 8.7 mg/dL Normal 8.5-10.1 [facility] Comment on above: Performed By: #### F T3, LIPID, CMP, T7, TSH #### [facility] [address] [address] [address] Dioni Mayorga Chloride [Moles/Vol] 105 mmol/L Normal 98-107 [facility] Comment on above: Performed By: #### F T3, LIPID, CMP, T7, TSH #### [facility] [address] [address] [address] Dioni Mayorga CO2 [Moles/Vol] 26.4 mmol/L Normal 21.0-32.0 [facility] Comment on above: Performed By: #### F T3, LIPID, CMP, T7, TSH #### [facility] [address] [address] [address] Dioni Mayorga Creatinine [Mass/Vol] 0.83 mg/dL Normal 0.55-1.02 [facility] Comment on above: Performed By: #### F T3, LIPID, CMP, T7, TSH #### [facility] [address] [place] [address] Dr. Dioni Mayorga EGFR-AF ERITREAN >60 Normal >=60 [facility] Comment on above: Performed By: #### F T3, LIPID, CMP, T7, TSH #### [facility] [address] [address] [address] Dioni Mayorga EGFR-NON AF ERITREAN >60 Normal >=60 [facility] Comment on above: Performed By: #### F T3, LIPID, CMP, T7, TSH #### [facility] [address] [address] [address] Dioni Mayorga Globulin (S) [Mass/Vol] 3.5 g/dL Normal [facility] Comment on above: Performed By: #### F T3, LIPID, CMP, T7, TSH #### [facility] [address] [address] [address] Dioni Mayorga Glucose [Mass/Vol] 78 mg/dL Normal 74-106 [facility] Comment on above: Performed By: #### F T3, LIPID, CMP, T7, TSH #### [facility] [address] [place] [address] Dr. Dioni Mayorga Potassium [Moles/Vol] 4.4 mmol/L Normal 3.5-5.1 [facility] Comment on above: Performed By: #### F T3, LIPID, CMP, T7, TSH #### [facility] [address] [address] [address] Dioni Mayorga Protein [Mass/Vol] 7.0 g/dL Normal 6.4-8.2 [facility] Comment on above: Performed By: #### F T3, LIPID, CMP, T7, TSH #### [facility] [address] [address] [address] Dinoi Mayorga Sodium [Moles/Vol] 141 mmol/L Normal 136-145 [facility] Comment on above: Performed By: #### F T3, LIPID, CMP, T7, TSH #### [facility] [address] [address] [address] Dioni Mayorga Urea nitrogen [Mass/Vol] 16.0 mg/dL Normal 7.0-18.0 [facility] Comment on above: Performed By: #### F T3, LIPID, CMP, T7, TSH #### [facility] [address] [place] [address] Dr. Dioni Mayorga Urea nitrogen/Creatinine [Mass ratio] 19.3 mg/mg Normal [facility] Comment on above: Performed By: #### F T3, LIPID, CMP, T7, TSH #### [facility] [address] [place], [place] [address] Dr. Dioni Mayorga TSHon 08-02-2021 TSH 1.339 uIU/mL Normal 0.358-3.740 [facility] Comment on above: Performed By: #### F T3, LIPID, CMP, T7, TSH #### [facility] [address] [place], [place] [address] Dr. Dioni Mayorga Vital Signs Date Time Vital Sign Value Performing Clinician Faci lity 09-03-2021 08:51-0400 Blood Pressure Location MICHAEL NUGENT [facility] 09-03-2021 08:51-0400 Diastolic blood pressure 96 mm[Hg] MICHAEL NUGENT [facility] 09-03-2021 08:51-0400 Heart rate 106 /min MICHAEL NUGENT [facility] 09-03-2021 08:51-0400 Systolic blood pressure 138 mm[Hg] MICHAEL NUGENT [facility] Encounters Encounter Date Encounter Type Care Provider Facility Start: 09-13-2023 End: 09-13-2023 ambulatory Harish Cannon MD Facility:[facility] Start: 05-17-2023 End: 05-17-2023 ambulatory Harish Cannon MD Facility:[facility] Start: 04-19-2023 End: 04-19-2023 ambulatory Harish Cannon MD Facility:[facility] Start: 01-11-2023 End: 01-11-2023 ambulatory Harish Cannon MD Facility:[facility] Start: 12-07-2022 End: 12-07-2022 ambulatory Harish Cannon MD Facility:[facility] Start: 11-23-2022 End: 11-23-2022 ambulatory Harish Cannon MD Facility:[facility] Start: 11-02-2022 End: 11-02-2022 ambulatory Harish Cannon MD Facility:[facility] Start: 03-02-2022 End: 03-02-2022 ambulatory SALVADOR GROSS Facility:[facility] Start: 12-15-2021 End: 12-15-2021 ambulatory SALVADOR GROSS Facility:[facility] Start: 12-09-2021 End: 12-09-2021 ambulatory SALVADOR GROSS Facility:[facility] Start: 09-17-2021 End: 09-18-[address] MONIKA MATTHEWS Facility:[facility] Start: 09-03-[address] MONIKA MATTHEWS Facility :[facility] Start: 09-03-2021 End: 09-03-2021 Patient encounter procedure MICHAEL NUGENT [facility] Start: 08-05-2021 Encounter for genera l adult medical examination without abnormal findings DR MONIKA MATTHEWS [facility] Start: 08-02-2021 End: 08-03-[address] MONIKA MATTHEWS Facility:[facility] Start: 08-02-2021 End: 08-03-2021 Encounter for general adult medical examination without abnormal findings DR MONIKA MATTHEWS Facility:[facility] Procedures Date Procedure Procedure Detail Performing Clinician Hysterectomy MICHAEL NUGENT Immunizations Immunization Date Immunization Notes Care Provider Fa roly NEGATED: Highlighted row has not occurred!09-03-2021 SARS-CoV-2 mRNA (tozinameran 5y-11y) vaccine MICHAEL NUGENT [facility] Payers Date Payer Category Payer Unknown [id number] 2022 Unknown 2019 Unknown [id number] 1970 Unknown [id number] 2.16.84 [id number] 1970 Unknown [id number] 2.16.84 [id number] 1970 Unknown [id number] 2.16.84 0.1.602739.3.579.2.593 1970 Unknown [id number] 2.16.84 0.1.485898.3.579.2.593 1970 Unknown [id number] 2.16.84 0.1.571247.3.579.2.593 1970 Unknown [id number] 2.16.84 0.1.462341.3.579.2.593 1970 Unknown [id number] 2.16. 840.1.146393.3.579.2.196 1970 Unknown [id number] 2.16. 840.1.050594.3.579.2.196 1970 Unknown [id number] 2.16. 840.1.845601.3.579.2.196 1970 Unknown [id number] 2.16. 840.1.710945.3.579.2.196 1970 Unknown [id number] 2.16. 840.1.683422.3.579.2.196 1970 Unknown [id number] 2.16. 840.1.616655.3.579.2.196 1970 Unknown [id number] 2.16. 840.1.986296.3.579.2.196 Social History Date Type Detail Facility Start: 09-03-2021 Tobacco smoking status Never s moked tobacco (finding) [facility] Tobacco smoking status Never [facility] Sex Assigned At Female [facility] Functional Status Date Assessment Result Facility 09-03-2021 Functional Status N/A [facility] Discharge instructions 09-03-2021 Note Date & [...] nerve stimulation). For women, using a medical records receptionist to prevent urine leaks. This is a [...] right after experiencing incontinence. General instructions Take [id number]-egryhsk and prescription medicines only as told by [...] 03/11/2005 Document Revised: 02/11/2018 Document Reviewed: 05/13/2017 [employer] Patient Education 2020 [employer]. Follow Up Care 08/06/2021 08:10:07 With:pt will call once she decides how she would like to proceed Address:Unknown When: Unknown [facility] Evaluation + Plan note Note Date & Type Note Facility Evaluation + Plan note Future Appointments Appointment Date:09/17/2021 08:30:00 AM Scheduled Provider: Location:[facility] Appointment Type:URO Nurse Visit [facility] Hospital course Narrative Note Date & Type Note Facility Hospital course Narrative No data available for this section [facility] Progress note Note Date & Type Note Facility Progress note No data available for this section [facility] Summary Purpose Family History No Family History Records FoundNo Family History Records FoundNo Family History Records Found Advance Directives No Advanced Directives Records FoundNo Advanced Directives Records FoundNo Advanced Directives Records Found Additional Source Comments Care Team (unrecognized sect ion and content) Personnel Name: Monika Matthews MD Address: [address] [place] [address] INFORMATION SOURCE (unrecogn ized section and content) DATE CREATED AUTHOR 09/18/2021 [facility] DATE CREATED AUTHOR AUTHOR'S ORGANIZ ATION 03/02/2022 [facility] DATE CREATED AUTHOR AUTHOR'S ORGANIZ ATION 09/28/2023 [facility] FOR RECORDS PERTAINING TO PATIENTS WHO [...] BE BASED ON THE PRIMARY CLINICAL RECORDS. [facility] [employer] [facility]. provides no warranty or guarantee of the accuracy or completeness of information in this document.
== END 2023-12-07 13:31 | disposition home or self-care (01) ==
LOC: LAB 13:30
PROVIDERS: PCP Family Medicine; Visit Provider Anesthesiology Pain Medicine
DX: M25.552 Pain in left hip (principal); M16.12 Unilateral primary osteoarthritis, left hip
CPT/HCPCS: 73502

== ENCOUNTER 2023-12-15 13:41 | Outpatient (OUT) | payer BC, SELFPAY ==
--- OUTSIDE RECORDS SUMMARY | 2023-12-15 13:45 | XMS_ITS | CCD ---
Author Organization [facility] CliniSyny Care Team Providers Care Oil Sales And Service Rep Name Role Phone Monika Matthews Primary Care Physician [phone] DR MONIKA MATTHEWS Admitting Unavailable CASSIE, DR [...] Unavailable CASSIE, DR FRANK Primary Care Unavailable GINYN, SALVADOR Consulting Unavailable CASSIE, DR FRANK Admitting [...] Value Interpretation Reference Range Facility Covid-19 PCR ([facility])on 02-15 SARS-CoV-2 (COVID-19) RNA YAMILET+probe Ql (Unsp spec) Not detected Normal NOT DETECTED [facility] Comment on above: Result Comment: When diagnostic [...] for this test is supported by the [place] of Health and Human Service's declaration that [...] be used). Performed By: #### C VDTB ####[facility] [address] [place] [address]Dr. Dioni Mayorga INFLUENZA A AND B AGon 03-02 [facility] SEE BELOW Normal [facility] Comment on above: Result Comment: Nega tive for Flu A protein angiten. Infection due to Flu A cannot be ruled out. Flu A angiten in the sample may be below the detection limit of the test. Performed By: #### I NFLUAB #### [facility] [address] [place] [address] Dr. Dioni [facility] Normal [facility] Comment on above: Result Comment: Nega tive for Flu B protein antigen. Infection due to Flu B cannot be ruled out. Flu B antigen in the sample may be below the detection limit of the test. Performed By: #### I NFLUAB #### [facility] [address] [place] [address] Dr. Dioni Mayorga INFLUENZA A AG Negative Normal NEGATIVE SEE COMMENT [facility] Comment on above: Performed By: #### I NFLUAB #### [facility] [address] [place] [address] Dr. Dioni Mayorga INFLUENZA B AG Negative Normal NEGATIVE SEE COMMENT [facility] Comment on above: Performed By: #### I NFLUAB #### [facility] [address] [place] [address] Dr. Dioni Mayorga ASYMPTOMATIC COVID-19 ANTIGE Non 12-15-2021 EUA Statement SEE BELOW Normal [facility] [...] sooner. Performed By: #### C VDAGA #### [facility] [address] [place] [address] Dr. Dioni Mayorga SARS-CoV-2 (COVID-19) RNA YAMILET+probe Ql (Unsp spec) Negative Normal NEGATIVE [facility] Comment on above: Result Comment: Nega tive results are presumptive. They do not preclude infection and should not be used as the sole basis for treatment decisions. Additional confirmatory testing by a molecular method should be considered. Performed By: #### C VDAGA #### [facility] [address] [place] [id number] [address] Dioni Mayorga [facility]16 SARS-CoV-2 (COVID-19) RNA YAMILET+probe Ql (Unsp spec) Detected Critically abnormal NOT DETECTED [facility] Comment on above: Result Comment: This test is not yet approved or cleared by the [place] FDA. When there are no FDA-approved or cleared tests available, and other criteria are met, FDA can make tests available under an emergency access mechanism called an Emergency Use Authorization (EUA). The EUA for this test is supported by the [employer] [place] of Health and Human Service's declaration that [...] longer be used). Performed By: #### C [facility] ####[facility] [address] [place], [place] [address]Xe. Dioni Mayorga MG MAMM SCREEN 3D DUSTIN CADon 09-17-2021 MG MAMM SCREEN 3D DUSTIN CAD Patient: BARBARA BACA Exam Date: 09/17/2021 : 1970 Gender:F Ordering : DR MONIKA MATTHEWS . Admission #: [id number] Family : Order #: [id number] CLICK HERE TO VIEW EXAM RADIOLOGY REPORT PROCEDURE: MAMMOGRAM SCREENING 3D BILATERAL CAD COMPARISON: MG MAMM SCREEN 3D DUSTIN CAD, 05/08/2020. MAMMO POST BIOPSY RIGHT, 01/04/2018. INDICATIONS: Screening mammography Calculator Name NCI Breast Cancer Risk Assessment Tool 5 Year Breast Cancer Risk 1.00% Lifetime Breast Cancer Risk 9.60% Personal Breast Cancer No Personal Ovarian Cancer No Treatments None Family Cancers None LOCATION: [facility] BREAST COMPOSITION: Scattered areas fibroglandular density. FINDINGS: [...] Rodarte M.D. on 09/17/2021 at 13:13 Normal [facility] Formson 09-04-2021 Forms [id number] #1.00CD:127 Normal [facility] Patient Educationon 09-05-19 Patient Education Obstetrics [...] Take ove (more content not included)... Normal [facility] Physician Referralon 022 Physician Referral [id number]#1.00CD:127 Normal [facility] Urology Office/Clinic Noteon 09-04-2021 Urology Office/Clinic [...] had hysterectomy about 10 yrs ago. previous EBAY RESELLER advised her bladder had dropped a bit. [...] E&M of New Patient Moderate 45-59 Min [id number] Follow-up With When Contact Information pt will [...] - Not Given Postpone due to refusal [facility] Comment on above: Result Comment: Elec tronically Signed By: MICHAEL NUGENT PA-C\.br\Date and Time Signed: 09/04/21 09:42 EDT Ambulatory Visit Summaryon 0 09-03-2021 Ambulatory Visit Summary BARBARA BACA :1970 Visit Date:09/03/2021 Ambulatory Visit Instructions Your Diagnosis Stress incontinence Tests Performed Urnls Dip Stick Auto w/o Microscopy POC 67256 Your Care Team Attending Physician - MICHAEL [...] Urnls Dip Stick Auto w/o Microscopy POC 46082 (09/03/2021) Bilirubin Urine Dipstick - Negative Blood Urine Dipstick - Trace-intact Glucose Urine Dipstick - Negative Ketones Urine Dipstick - Negative Leukocytes Urine Dipstick - Negative Nitrite Urine Dipstick - Negative Protein Urine Dipstick - Negative Specific [place] Urine Dipstick - 1.020 Urine Appearance Urine Dipstick - Clear Urine Color Urine Dipstick - Yellow Urobilinogen Urine Dipstick - Normal 0.2-1 EU/dl pH Urine Dipstick - 5 Medications and Immunizations Administered Not Given SARS-CoV-2 mRNA (tozinameran 5y-11y) vac, Postpone due to refusal Allergies No Known Allergies No Known Medication Allergies Normal [facility] CBC AUTO DIFFon 08-02-2021 BASO # 0.0 103/ul Normal 0.0-0.1 [facility] Comment on above: Performed By: #### C BC #### [facility] [address] [place] [address] Dr. Dioni Mayorga Basophils/100 WBC (Bld) 0.4 % Normal 0.2-2.0 [facility] Comment on above: Performed By: #### C BC #### [facility] [address] [place] [address] Dr. Dioni Mayorga EO # 0.1 103/ul Normal 0.0-0.7 [facility] Comment on above: Performed By: #### C BC #### [facility] [address] [place] [address] Dr. Dioni Mayorga Eosinophils/100 WBC (Bld) 1.0 % Normal 0.9-7.0 [facility] Comment on above: Performed By: #### C BC #### [facility] [address] [place] [address] Dr. Dioni Mayorga Erythrocyte distribution width (RBC) [Ratio] 13.4 % Normal 11.0-15.0 [facility] Comment on above: Performed By: #### C BC #### [facility] [address] [place] [address] Dr. Dioni Mayorga Hematocrit (Bld) [Volume fraction] 45.2 % Normal 36.0-48.0 [facility] Comment on above: Performed By: #### C BC #### [facility] [address] [place] [address] Dr. Dioni Mayorga Hemoglobin (Bld) [Mass/Vol] 14.5 g/dL Normal 12.0-16.0 [facility] Comment on above: Performed By: #### C BC #### [facility] [address] [place] [address] Dr. Dioni Mayorga IG # 0.02 10e3/ul Normal 0.00-0.03 [facility] Comment on above: Performed By: #### C BC #### [facility] [address] [place] [address] Dr. Dioni Mayorga IG % 0.3 % Normal 0.0-0.5 [facility] Comment on above: Performed By: #### C BC #### [facility] [address] [place] [address] Dr. Dioni Mayorga LYMPH # 2.7 103/ul Normal 1.2-3.8 [facility] Comment on above: Performed By: #### C BC #### [facility] [address] [place] [address] Dr. Dioni Mayorga Lymphocytes/100 WBC (Bld) 38.7 % Normal 20.5-60.0 [facility] Comment on above: Performed By: #### C BC #### [facility] [address] [place] [address] Dr. Dioni Mayorga MANUAL DIFF REQ NO Normal [facility] Comment on above: Performed By: #### C BC #### [facility] [address] [place] [address] Dr. Dioni Mayorga MCH (RBC) [Entitic mass] 28.4 pg Normal 26.7-34.0 [facility] Comment on above: Performed By: #### C BC #### [facility] [address] [place] [address] Dr. Dioni Mayorga MCHC (RBC) [Mass/Vol] 32.1 g/dL Normal 29.9-35.2 [facility] Comment on above: Performed By: #### C BC #### [facility] [address] [place] [address] Dr. Dioni Mayorga MCV (RBC) [Entitic vol] 88.5 fL Normal 81.0-99.0 [facility] Comment on above: Performed By: #### C BC #### [facility] [address] [address] [address] Dioni Mayorga MONO # 0.4 103/ul Normal 0.3-0.8 [facility] Comment on above: Performed By: #### C BC #### [facility] [address] [place] [address] [address] Dioni Mayorga Monocytes/100 WBC (Bld) 6.2 % Normal 1.7-12.0 [facility] Comment on above: Performed By: #### C BC #### [facility] [address] [place] [address] [address] Dioni Mayorga NEUT # 3.7 103/ul Normal 1.4-6.5 [facility] Comment on above: Performed By: #### C BC #### [facility] [address] [place] [address] Dr. Dioni Mayorga Neutrophils/100 WBC (Bld) 53.4 % Normal 43.0-75.0 [facility] Comment on above: Performed By: #### C BC #### [facility] [address] [place] [address] Dr. Dioni Mayorga Platelet mean volume (Bld) [Entitic vol] 10.4 fL Normal 9.5-13.5 [facility] Comment on above: Performed By: #### C BC #### [facility] [address] [place] [address] Dr. Dioni Mayorga PLT 340 103/ul Normal 150-450 [facility] Comment on above: Performed By: #### C BC #### [facility] [address] [place] [address] Dr. Dioni Mayorga RBC 5.11 106/ul Normal 4.20-5.40 [facility] Comment on above: Performed By: #### C BC #### [facility] [address] [place] [address] Dr. Dioni Mayorga WBC 6.9 103/ul Normal 4.0-11.0 [facility] Comment on above: Performed By: #### C BC #### [facility] [address] [address] [address] Dioni Mayorga FREE T3on 08-02-2021 FREE T3 1.49 pg/mlL Critically low 2.18-3.98 [facility] Comment on above: Performed By: #### F T3, LIPID, CMP, T7, TSH #### [facility] [address] [address] [address] Dioni Mayorga FREE THYROXINE INDEX T7on FTI 2.77 Normal 1.30-4.50 [facility] Comment on above: Performed By: #### F T3, LIPID, CMP, T7, TSH #### [facility] [address] [address] [address] Dioni Mayorga T3U 36.0 % Normal 30.0-39.0 [facility] Comment on above: Performed By: #### F T3, LIPID, CMP, T7, TSH #### [facility] [address] [place] [address] Dr. Dioni Mayorga T4 [Mass/Vol] 7.70 ug/dL Normal 4.80-13.90 [facility] Comment on above: Performed By: #### F T3, LIPID, CMP, T7, TSH #### [facility] [address] [address] [address] Dioni Mayorga GLYCOHEMOGLOBIN A1Con 2021 ADA RECOMMENDATION SEE BELOW Normal [facility] Comment on above: Result Comment: ADA RECOMMENDED LIMIT 4.0 - 6.0 ADA THERAPEUTIC TARGET < 7.0 ACTION SUGGESTED > 7.0 Performed By: #### A 1C #### [facility] [address] [place] [address] Dr. Dioni Mayorga Glucose [Mass/Vol] 111 mg/dL Normal [facility] Comment on above: Performed By: #### A 1C #### [facility] [address] [place] [address] Dr. Dioni Mayorga HbA1c (Bld) [Mass fraction] 5.5 % Normal 4.5-6.2 [facility] Comment on above: Performed By: #### A 1C #### [facility] [address] [address] [address] Dioni Mayorga LIPID PROFILEon 08-02-2021 CHOL-HDL RATIO NORM SEE BELOW Normal [facility] Comment on above: Result Comment: 3.3 - 4.4 LOW RISK 4.4 - 7.1 AVERAGE RISK 7.1 - 11.0 MODERATE RISK >11.0 HIGH RISK Performed By: #### F T3, LIPID, CMP, T7, TSH #### [facility] [address] [address] [address] Dioni Mayorga Cholesterol [Mass/Vol] 211 mg/dL Critically high <=200 [facility] Comment on above: Performed By: #### F T3, LIPID, CMP, T7, TSH #### [facility] [address] [address] [address] Dioni Mayorga Cholesterol in HDL [Mass/Vol] 48 mg/dL Normal 40-60 [facility] Comment on above: Performed By: #### F T3, LIPID, CMP, T7, TSH #### [facility] [address] [address] [address] Dioni Mayorga Cholesterol in LDL [Mass/Vol] 148.6 mg/dL Normal [facility] Comment on above: Performed By: #### F T3, LIPID, CMP, T7, TSH #### [facility] [address] [address] [address] Dioni Mayorga Cholesterol.total/Ch olesterol in HDL [Mass ratio] 4.4 {ratio} Normal [facility] Comment on above: Performed By: #### F T3, LIPID, CMP, T7, TSH #### [facility] [address] [address] [address] Dioni Mayorga HDL NORMAL > or = 60 mg/dl - LOW CARDIOVASCULAR RISK <40 mg/dl - HIGH CARDIOVASCULAR RISK Normal [facility] Comment on above: Performed By: #### F T3, LIPID, CMP, T7, TSH #### [facility] [address] [address] [address] Dioni Mayorga LDL CALC NORMAL SEE BELOW Normal [facility] Comment on above: Result Comment: <100 mg/dl OPTIMAL 100 - 129 mg/dl NEAR OR ABOVE OPTIMAL 130 - 159 mg/dl BORDERLINE HIGH 160 - 189 mg/dl HIGH >190 mg/dl VERY HIGH Performed By: #### F T3, LIPID, CMP, T7, TSH #### [facility] [address] [address] [address] Dioni Mayorga Triglyceride [Mass/Vol] 72 mg/dL Normal <=150 [facility] Comment on above: Performed By: #### F T3, LIPID, CMP, T7, TSH #### [facility] [address] [address] [address] Dioni Mayorga VLDL CALC 14.4 mg/dL Normal [facility] Comment on above: Performed By: #### F T3, LIPID, CMP, T7, TSH #### [facility] [address] [address] [address] Dioni Mayorga PROF 14(COMP METB)on 022 Albumin [Mass/Vol] 3.5 g/dL Normal 3.4-5.0 [facility] Comment on above: Performed By: #### F T3, LIPID, CMP, T7, TSH #### [facility] [address] [address] [address] Dioni Mayorga Albumin/Globulin [Mass ratio] 1.0 {ratio} Normal [facility] Comment on above: Performed By: #### F T3, LIPID, CMP, T7, TSH #### [facility] [address] [address] [address] Dioni Mayorga ALP [Catalytic activity/Vol] 62 U/L Normal 46-116 [facility] Comment on above: Performed By: #### F T3, LIPID, CMP, T7, TSH #### [facility] [address] [address] [address] Dioni Mayorga ALT [Catalytic activity/Vol] 20 U/L Normal 14-59 [facility] Comment on above: Performed By: #### F T3, LIPID, CMP, T7, TSH #### [facility] [address] [address] [address] Dioni Mayorga Anion gap [Moles/Vol] 14.0 mmol/L Normal [facility] Comment on above: Performed By: #### F T3, LIPID, CMP, T7, TSH #### [facility] [address] [address] [address] Dioni Mayorga AST [Catalytic activity/Vol] 12 U/L Critically low 15-37 [facility] Comment on above: Performed By: #### F T3, LIPID, CMP, T7, TSH #### [facility] [address] [address] [address] Dioni Mayorga Bilirubin [Mass/Vol] 0.4 mg/dL Normal 0.2-1.0 [facility] Comment on above: Performed By: #### F T3, LIPID, CMP, T7, TSH #### [facility] [address] [address] [address] Dioni Mayorga Calcium [Mass/Vol] 8.7 mg/dL Normal 8.5-10.1 [facility] Comment on above: Performed By: #### F T3, LIPID, CMP, T7, TSH #### [facility] [address] [address] [address] Dioni Mayorga Chloride [Moles/Vol] 105 mmol/L Normal 98-107 [facility] Comment on above: Performed By: #### F T3, LIPID, CMP, T7, TSH #### [facility] [address] [address] [address] Dioni Mayorga CO2 [Moles/Vol] 26.4 mmol/L Normal 21.0-32.0 [facility] Comment on above: Performed By: #### F T3, LIPID, CMP, T7, TSH #### [facility] [address] [address] [address] Dioni Mayorga Creatinine [Mass/Vol] 0.83 mg/dL Normal 0.55-1.02 [facility] Comment on above: Performed By: #### F T3, LIPID, CMP, T7, TSH #### [facility] [address] [place] [address] Dr. Doini Mayorga EGFR-AF GAMBIAN >60 Normal >=60 [facility] Comment on above: Performed By: #### F T3, LIPID, CMP, T7, TSH #### [facility] [address] [address] [address] Dioni Mayorga EGFR-NON AF GAMBIAN >60 Normal >=60 [facility] Comment on above: Performed By: #### F T3, LIPID, CMP, T7, TSH #### [facility] [address] [address] [address] Dioni Mayorga Globulin (S) [Mass/Vol] 3.5 g/dL Normal [facility] Comment on above: Performed By: #### F T3, LIPID, CMP, T7, TSH #### [facility] [address] [address] [address] Dioni Mayorga Glucose [Mass/Vol] 78 mg/dL Normal 74-106 [facility] Comment on above: Performed By: #### F T3, LIPID, CMP, T7, TSH #### [facility] [address] [place] [address] Dr. Dioni Mayorga Potassium [Moles/Vol] 4.4 mmol/L Normal 3.5-5.1 [facility] Comment on above: Performed By: #### F T3, LIPID, CMP, T7, TSH #### [facility] [address] [address] [address] Dioni Mayorga Protein [Mass/Vol] 7.0 g/dL Normal 6.4-8.2 [facility] Comment on above: Performed By: #### F T3, LIPID, CMP, T7, TSH #### [facility] [address] [address] [address] Dioni Mayorga Sodium [Moles/Vol] 141 mmol/L Normal 136-145 [facility] Comment on above: Performed By: #### F T3, LIPID, CMP, T7, TSH #### [facility] [address] [address] [address] Dioni Mayorga Urea nitrogen [Mass/Vol] 16.0 mg/dL Normal 7.0-18.0 [facility] Comment on above: Performed By: #### F T3, LIPID, CMP, T7, TSH #### [facility] [address] [place] [address] Dr. Dioni Mayorga Urea nitrogen/Creatinine [Mass ratio] 19.3 mg/mg Normal [facility] Comment on above: Performed By: #### F T3, LIPID, CMP, T7, TSH #### [facility] [address] [place], [place] [address] Dr. Dioni Mayorga TSHon 08-02-2021 TSH 1.339 uIU/mL Normal 0.358-3.740 [facility] Comment on above: Performed By: #### F T3, LIPID, CMP, T7, TSH #### [facility] [address] [place], [place] [address] Dr. Dioni Mayorga Vital Signs Date Time Vital Sign Value Performing Clinician Faci lity 09-03-2021 08:51-0400 Blood Pressure Location MICHAEL NUGENT [facility] 09-03-2021 08:51-0400 Diastolic blood pressure 96 mm[Hg] MICHAEL NUGENT [facility] 09-03-2021 08:51-0400 Heart rate 106 /min MICHAEL NUGENT [facility] 09-03-2021 08:51-0400 Systolic blood pressure 138 mm[Hg] MICHAEL NUGENT [facility] Encounters Encounter Date Encounter Type Care Provider Facility Start: 09-13-2023 End: 09-13-2023 ambulatory Harish Cannon MD Facility:[facility] Start: 05-17-2023 End: 05-17-2023 ambulatory Harish Cannon MD Facility:[facility] Start: 04-19-2023 End: 04-19-2023 ambulatory Harish Cannon MD Facility:[facility] Start: 01-11-2023 End: 01-11-2023 ambulatory Harish Cannon MD Facility:[facility] Start: 12-07-2022 End: 12-07-2022 ambulatory Harish Cannon MD Facility:[facility] Start: 11-23-2022 End: 11-23-2022 ambulatory Harish Cannon MD Facility:[facility] Start: 11-02-2022 End: 11-02-2022 ambulatory Harish Cannon MD Facility:[facility] [place] Start: 03-02-2022 End: 03-02-2022 ambulatory SALVADOR GROSS Facility:[facility] Start: 12-15-2021 End: 12-15-2021 ambulatory SALVADOR GROSS Facility:[facility] Start: 12-09-2021 End: 12-09-2021 ambulatory SALVADOR GROSS Facility:[facility] Start: 09-17-2021 End: 09-18-[address] MONIKA MATTHEWS Facility:[facility] Start: 09-03-[address] MONIKA MATTHEWS Facility :[facility] Start: 09-03-2021 End: 09-03-2021 Patient encounter procedure MICHAEL NUGENT [facility] Start: 08-05-2021 Encounter for genera l adult medical examination without abnormal findings DR MONIKA MATTHEWS [facility] Start: 08-02-2021 End: 08-03-[address] MONIKA MATTHEWS Facility:[facility] Start: 08-02-2021 End: 08-03-2021 Encounter for general adult medical examination without abnormal findings DR MONIKA MATTHEWS Facility:[facility] Procedures Date Procedure Procedure Detail Performing Clinician Hysterectomy MICHAEL NUGENT Immunizations Immunization Date Immunization Notes Care Provider Fa roly NEGATED: Highlighted row has not occurred!09-03-2021 SARS-CoV-2 mRNA (tozinameran 5y-11y) vaccine MICHAEL NUGENT [facility] Payers Date Payer Category Payer Unknown [id number] 2022 Unknown 2019 Unknown [id number] 1970 Unknown [id number] 2.16.84 [id number] 1970 Unknown [id number] 2.16.84 [id number] 1970 Unknown [id number] 2.16.84 [id number] 1970 Unknown [id number] 2.16.84 0.1.085960.3.579.2.593 1970 Unknown [id number] 2.16.84 [id number] 1970 Unknown [id number] 2.16.84 0.1.481712.3.579.2.593 1970 Unknown [id number] 2.16. 840.1.689371.3.579.2.196 1970 Unknown [id number] 2.16. [id number] 1970 Unknown [id number] 2.16. 840.1.322811.3.579.2.196 1970 Unknown [id number] 2.16. 840.1.226358.3.579.2.196 1970 Unknown [id number] 2.16. 840.1.217574.3.579.2.196 1970 Unknown [id number] 2.16. 840.1.270303.3.579.2.196 1970 Unknown [id number] 2.16. [id number] Social History Date Type Detail Facility Start: 09-03-2021 Tobacco smoking status Never s moked tobacco (finding) [facility] Tobacco smoking status Never [facility] [place] Sex Assigned At Female [facility] [place] Functional Status Date Assessment Result Facility 09-03-2021 Functional Status N/A [facility] Discharge instructions 09-03-2021 Note Date & [...] stimulation). For women, using a medical office clerk to prevent urine leaks. This is a [...] right after experiencing incontinence. General instructions Take [id number]-[id number] and prescription medicines only as told by [...] 03/11/2005 Document Revised: 02/11/2018 Document Reviewed: 05/13/2017 [employer] Patient Education 2020 [employer]. Follow Up Care 08/06/2021 08:10:07 With:pt will call once she decides how she would like to proceed Address:Unknown When: Unknown [facility] Evaluation + Plan note Note Date & Type Note Facility Evaluation + Plan note Future Appointments Appointment Date:09/17/2021 08:30:00 AM Scheduled Provider: Location:[facility] Appointment Type:URO Nurse Visit [facility] Hospital course Narrative Note Date & Type Note Facility Hospital course Narrative No data available for this section [facility] Progress note Note Date & Type [...] content) Personnel Name: Monika Matthews MD Address: [address] [place] [address] INFORMATION SOURCE (unrecogn ized section and content) DATE CREATED AUTHOR 09/18/2021 [facility] DATE CREATED AUTHOR AUTHOR'S ORGANIZ ATION 03/02/2022 [facility] DATE CREATED AUTHOR AUTHOR'S ORGANIZ ATION 09/28/2023 [facility] FOR RECORDS PERTAINING TO PATIENTS WHO ARE [...] BE BASED ON THE PRIMARY CLINICAL RECORDS. [facility] [employer] [facility]. provides no warranty or guarantee of the accuracy or completeness of information in this document.
--- NOTE | 2023-12-15 14:33 | P.CN_ITS ---
Consult Note: HPI Data of Consult Patient: known to practice within the last 3 years Consult date: 04/19/23 Requesting Physician: Therese Montelongo NP Primary Care Provider: Romero Dykes MD Consult Narrative Reason for consult: chronic low back pain Narrative: 52yof who presents for assessment of chronic low back pain. Patient continues to engage in HEP greater than 6 weeks. Patient has found benefit to baclofen 10mg, tylenol arthritis, and celebrex 200mg BID. upcoming bilateral superior gluteal nerve blocks working towards RFA for low back pain. noticing increase in myofascial pain and spasming. has not utilized heat or TENS recently. cc:: CC: Therese Montelongo NP Review of Systems 2 ROS0 Status of ROS 10 or more systems reviewed and unremark able except as noted in history and below Musculoskeletal Reports: back pain PFSH PFSH Medical History Low back ache ?M54.50 - Low back pain, unspecified (ICD-10) Obesity ?E66.9 - Obesity, unspecified (ICD-10) Surgical History H/O tooth extraction ?K08.409 - Partial loss of teeth, unspecified cause, unspecified class (ICD- 10) H/O: hysterectomy ?Z90.710 - Acquired absence of both cervix and uterus (ICD-10) Social History Smoking status: Never smoker Meds Home Medications and Allergies Home Medications ?Medication ?Instructions ?Recorded ?Confirmed ?Type loratadine-pseudoephedrine ER 10 1 tab PO DAILY 11/02/22 09/13/23 History mg-240 mg tablet,extended [id number] (Claritin-D 24 Hour) baclofen 10 mg tablet 10 mg PO DAILY PRN muscle spasm 11/17/23 11/17/23 History celecoxib 200 mg capsule (Celebrex) 200 mg PO BID 12/14/23 12/14/23 History Allergies Allergy/AdvReac Type Severity Reaction Status Date / Time No Known Drug Allergies Allergy Verified 09/13/23 07:17 Exam Constitutional Documenting provider has reviewed patient's vital signs: yes Common normals: no apparent distress, oriented x3, healthy appearing, alert and well nourished General appearance: cooperative Nutritional appearance: obese HENWI Common normals: normocephalic, hearing grossly normal bilaterally and moist oral mucous membranes Head and scalp: normocephalic Eye Common normals: PERRL Pupil: PERRL Neck & C-Spine Common normals: full ROM General: normal visual inspection Chest Common normals: inspection of chest normal Respiratory Common normals: normal respiratory effort, no retractions and no use of accessory muscles Back & Pelvis Common normals: no CVA tenderness Lumbar spine/lower back: normal to inspection, lumbar ROM normal, ROM limited, paraspinal muscle tenderness, paraspinal muscle spasm and straight leg raise negative bilaterally Other: strength 5/5 BLE sensation intact bilateral paralumbar trigger points as noted below Back image (female): 2 1. 2. Extremity Common normals: normal to inspection and full ROM Neuro Common normals: oriented x3, CN's II-XII intact bilaterally, moves all extremities, no focal motor deficits, no sensory deficits noted and deep tendon reflexes 2+ bilaterally Sensorium/orientation: alert Motor exam: strength 5/5 throughout and no movement abnormalities noted Psych Common normals: mental status grossly normal, thought process normal, cooperative, affect normal, speech normal and activity/motor behavior normal Speech: normal speech Thought process: normal thought process Assessment and Plan Assessment and Plan (1) Lumbar degenerative disc disease: (2) Myalgia, other site: Assessment and Plan: OPERATION:?bilateral paralumbar Trigger Point Injection. ANESTHESIA:?Local COMPLICATIONS:?None. The procedure risks, hazards and alternatives were discussed with the patient and a proper consent was obtained. The area over the myofascial spasm was prepped with alcohol utilizing sterile technique. After isolating it between two palpating fingertips a 25-gauge 1.5 needle was placed in the center of the myofascial spasms and a negative aspiration was performed. Then 1 cc of 0.25% bupivacaine/ 2%lidocaine/10mg triamcinolone was injected into each trigger point, x6. The patient tolerated the procedure well without any apparent difficulties or complications. They were feeling relief by the time the block had set. (3) Lumbar stenosis without neurogenic claudication: (4) Lumbar radiculopathy: (5) Lumbar spondylosis: (6) Unspecified mononeuropathy of right lower limb: (7) Unspecified mononeuropathy of left lower limb: Plan bilateral paralumbar TPI completed, >50% improvement upon completion encouraged TENS and heat upcoming bilateral superior gluteal nerve blocks working towards RFA start gabapentin 100-200mg HS at bedtime as tolerated f/u as scheduled
== END 2023-12-15 13:42 | disposition home or self-care (01) ==
LOC: PM 13:41
PROVIDERS: PCP Family Medicine; Visit Provider Nurse Practitioner
DX: M51.369 Other intervertebral disc degeneration, lumbar region without mention of lumbar back pain or lower extremity pain (principal); M79.18 Myalgia, other site; M48.062 Spinal stenosis, lumbar region with neurogenic claudication; M54.16 Radiculopathy, lumbar region; M47.816 Spondylosis without myelopathy or radiculopathy, lumbar region
CPT/HCPCS: 20552; J0665; J3301

== ENCOUNTER 2023-12-21 06:53 | Day surgery (SDC) | payer BC, SELFPAY ==
--- OUTSIDE RECORDS SUMMARY | 2023-12-21 06:56 | XMS_ITS | CCD ---
Author Organization [facility] CliniSyga Care Team Providers Care Batch Analyst Name Role Phone Monika Matthews Primary Care [...] Value Interpretation Reference Range Facility Covid-19 PCR ([facility])on 02-15 SARS-CoV-2 (COVID-19) RNA YAMILET+probe Ql (Unsp spec) Not detected Normal NOT DETECTED [facility] Comment on above: Result Comment: [...] for this test is supported by the [place] of Health and Human Service's declaration that [...] be used). Performed By: #### C VDTB ####[facility] [id number] [address]. Dioni Myaorga INFLUENZA A AND B AGon 03-02 [facility] SEE BELOW Normal [facility] Comment on above: Result Comment: Nega tive for Flu A protein angiten. Infection due to Flu A cannot be ruled out. Flu A angiten in the sample may be below the detection limit of the test. Performed By: #### I NFLUAB #### [facility] [address] [place] [address] Dr. [facility] Normal [facility] Comment on above: Result Comment: Nega tive for Flu B protein antigen. Infection due to Flu B cannot be ruled out. Flu B antigen in the sample may be below the detection limit of the test. Performed By: #### I NFLUAB #### [facility] [address] [place] [address] Dr. Dioni Mayorga INFLUENZA A AG Negative Normal NEGATIVE SEE COMMENT [facility] Comment on above: Performed By: #### I NFLUAB #### [facility] [address] [place] [address] Dr. Dioni Mayorga INFLUENZA B AG Negative Normal NEGATIVE SEE COMMENT [facility] Comment on above: Performed By: #### I NFLUAB #### [facility] [address] [place] [address] Dr. Dioni Mayorga ASYMPTOMATIC COVID-19 ANTIGE Non 12-15-2021 EUA Statement SEE BELOW Normal [facility] Comment on above: Result Comment: [...] sooner. Performed By: #### C VDAGA #### [facility] [address] [place] [address] Dr. Dioni Mayorga SARS-CoV-2 (COVID-19) RNA YAMILET+probe Ql (Unsp spec) Negative Normal NEGATIVE [facility] Comment on above: Result Comment: Nega tive results are presumptive. They do not preclude infection and should not be used as the sole basis for treatment decisions. Additional confirmatory testing by a molecular method should be considered. Performed By: #### C VDAGA #### [facility] [address] [place] [address] [address] [address] Dioni Mayorga [facility]on 11-16 SARS-CoV-2 (COVID-19) RNA YAMILET+probe Ql (Unsp spec) Detected Critically abnormal NOT DETECTED [facility] Comment on above: Result Comment: This test is not yet approved or cleared by the [place] FDA. When there are no FDA-approved or cleared tests available, and other criteria are met, FDA can make tests available under an emergency access mechanism called an Emergency Use Authorization (EUA). The EUA for this test is supported by the Medical Care Manager of Health and Human Service's declaration that [...] used). Performed By: #### C [facility] ####[facility] [id number] [place], [place] [address]Hd. Dioni Mayorga MG MAMM SCREEN 3D DUSTIN CADon 09-17-2021 MG MAMM SCREEN 3D DUSTIN CAD Patient: BARBARA BACA Exam Date: 09/17/2021 : 1970 Gender:F Ordering : DR MONIKA MATTHEWS . Admission #: [id number] Family : Order #: [id number] CLICK HERE TO VIEW EXAM RADIOLOGY REPORT PROCEDURE: MAMMOGRAM SCREENING 3D BILATERAL CAD COMPARISON: MG MAMM SCREEN 3D DUSTIN CAD, 05/08/2020. MAMMO POST BIOPSY RIGHT, 01/04/2018. INDICATIONS: Screening mammography Calculator Name NCI Breast Cancer Risk Assessment Tool 5 Year Breast Cancer Risk 1.00% Lifetime Breast Cancer Risk 9.60% Personal Breast Cancer No Personal Ovarian Cancer No Treatments None Family Cancers None LOCATION: [facility] BREAST COMPOSITION: Scattered areas fibroglandular [...] Rodarte M.D. on 09/17/2021 at 13:13 Normal [facility] Formson 09-04-2021 Forms [id number] #1.00CD:127 Normal [facility] Patient Educationon 09-05-19 Patient Education Obstetrics [...] Take ove (more content not included)... Normal [facility] Physician Referralon 022 Physician Referral [id number]#1.00CD:127 Normal [facility] Urology Office/Clinic Noteon 09-04-2021 Urology Office/Clinic [...] had hysterectomy about 10 yrs ago. 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 [...] E&M of New Patient Moderate 45-59 Min 38921 Follow-up With When Contact Information pt will [...] - Not Given Postpone due to refusal [facility] Comment on above: Result Comment: Elec tronically Signed By: MICHAEL NUGENT PA-C\.br\Date and Time Signed: 09/04/21 09:42 EDT Ambulatory Visit Summaryon 0 09-03-2021 Ambulatory Visit Summary BARBARA BACA :1970 Visit Date:09/03/2021 Ambulatory Visit Instructions Your Diagnosis Stress incontinence Tests Performed Urnls Dip Stick Auto w/o Microscopy POC 95701 Your Care Team Attending Physician - MICHAEL [...] Urnls Dip Stick Auto w/o Microscopy POC 05448 (09/03/2021) Bilirubin Urine Dipstick - Negative Blood Urine Dipstick - Trace-intact Glucose Urine Dipstick - Negative Ketones Urine Dipstick - Negative Leukocytes Urine Dipstick - Negative Nitrite Urine Dipstick - Negative Protein Urine Dipstick - Negative Specific [place] Urine Dipstick - 1.020 Urine Appearance Urine Dipstick - Clear Urine Color Urine Dipstick - Yellow Urobilinogen Urine Dipstick - Normal 0.2-1 EU/dl pH Urine Dipstick - 5 Medications and Immunizations Administered Not Given SARS-CoV-2 mRNA (tozinameran 5y-11y) vac, Postpone due to refusal Allergies No Known Allergies No Known Medication Allergies Normal [facility] CBC AUTO DIFFon 08-02-2021 BASO # 0.0 103/ul Normal 0.0-0.1 [facility] Comment on above: Performed By: #### C BC #### [facility] [address] [place] [address] Dr. Dioni Mayorga Basophils/100 WBC (Bld) 0.4 % Normal 0.2-2.0 [facility] Comment on above: Performed By: #### C BC #### [facility] [address] [place] [address] Dr. Dioni Mayorga EO # 0.1 103/ul Normal 0.0-0.7 [facility] Comment on above: Performed By: #### C BC #### [facility] [address] [place] [address] Dr. Dioni Mayorga Eosinophils/100 WBC (Bld) 1.0 % Normal 0.9-7.0 [facility] Comment on above: Performed By: #### C BC #### [facility] [address] [place] [address] Dr. Dioni Mayorga Erythrocyte distribution width (RBC) [Ratio] 13.4 % Normal 11.0-15.0 [facility] Comment on above: Performed By: #### C BC #### [facility] [address] [place] [address] Dr. Dioni Mayorga Hematocrit (Bld) [Volume fraction] 45.2 % Normal 36.0-48.0 [facility] Comment on above: Performed By: #### C BC #### [facility] [address] [place] [address] Dr. Dioni Mayorga Hemoglobin (Bld) [Mass/Vol] 14.5 g/dL Normal 12.0-16.0 [facility] Comment on above: Performed By: #### C BC #### [facility] [address] [place] [address] Dr. Dioni Mayorga IG # 0.02 10e3/ul Normal 0.00-0.03 [facility] Comment on above: Performed By: #### C BC #### [facility] [address] [place] [address] Dr. Dioni Mayorga IG % 0.3 % Normal 0.0-0.5 [facility] Comment on above: Performed By: #### C BC #### [facility] [address] [place] [address] Dr. Dioni Mayorga LYMPH # 2.7 103/ul Normal 1.2-3.8 [facility] Comment on above: Performed By: #### C BC #### [facility] [address] [place] [address] Dr. Dioni Mayorga Lymphocytes/100 WBC (Bld) 38.7 % Normal 20.5-60.0 [facility] Comment on above: Performed By: #### C BC #### [facility] [address] [place] [address] Dr. Dioni Mayorga MANUAL DIFF REQ NO Normal [facility] Comment on above: Performed By: #### C BC #### [facility] [address] [place] [address] Dr. Dioni Mayorga MCH (RBC) [Entitic mass] 28.4 pg Normal 26.7-34.0 [facility] Comment on above: Performed By: #### C BC #### [facility] [address] [place] [address] Dr. Dioni Mayorga MCHC (RBC) [Mass/Vol] 32.1 g/dL Normal 29.9-35.2 [facility] Comment on above: Performed By: #### C BC #### [facility] [address] [place] [address] Dr. Dioni Mayorga MCV (RBC) [Entitic vol] 88.5 fL Normal 81.0-99.0 [facility] Comment on above: Performed By: #### C BC #### [facility] [address] [address] [address] Dioni Mayorga MONO # 0.4 103/ul Normal 0.3-0.8 [facility] Comment on above: Performed By: #### C BC #### [facility] [address] [address] [address] Dioni Mayorga Monocytes/100 WBC (Bld) 6.2 % Normal 1.7-12.0 [facility] Comment on above: Performed By: #### C BC #### [facility] [address] [address] [address] Dioni Mayorga NEUT # 3.7 103/ul Normal 1.4-6.5 [facility] Comment on above: Performed By: #### C BC #### [facility] [address] [place] [address] Dr. Dioni Mayorga Neutrophils/100 WBC (Bld) 53.4 % Normal 43.0-75.0 [facility] Comment on above: Performed By: #### C BC #### [facility] [address] [place] [address] Dr. Dioni Mayorga Platelet mean volume (Bld) [Entitic vol] 10.4 fL Normal 9.5-13.5 [facility] Comment on above: Performed By: #### C BC #### [facility] [address] [place] [address] Dr. Dioni Mayorga PLT 340 103/ul Normal 150-450 [facility] Comment on above: Performed By: #### C BC #### [facility] [address] [place] [address] Dr. Dioni Mayorga RBC 5.11 106/ul Normal 4.20-5.40 [facility] Comment on above: Performed By: #### C BC #### [facility] [address] [place] [address] Dr. Dioni Mayorga WBC 6.9 103/ul Normal 4.0-11.0 [facility] Comment on above: Performed By: #### C BC #### [facility] [address] [address] [address] Dioni Mayorga FREE T3on 08-02-2021 FREE T3 1.49 pg/mlL Critically low 2.18-3.98 [facility] Comment on above: Performed By: #### F T3, LIPID, CMP, T7, TSH #### [facility] [address] [address] [address] Dioni Mayorga FREE THYROXINE INDEX T7on FTI 2.77 Normal 1.30-4.50 [facility] Comment on above: Performed By: #### F T3, LIPID, CMP, T7, TSH #### [facility] [address] [address] [address] iDoni Mayorga T3U 36.0 % Normal 30.0-39.0 [facility] Comment on above: Performed By: #### F T3, LIPID, CMP, T7, TSH #### [facility] [address] [place] [address] Dr. Dioni Mayorga T4 [Mass/Vol] 7.70 ug/dL Normal 4.80-13.90 [facility] Comment on above: Performed By: #### F T3, LIPID, CMP, T7, TSH #### [facility] [address] [address] [address] Dioni Mayorga GLYCOHEMOGLOBIN A1Con 2021 ADA RECOMMENDATION SEE BELOW Normal [facility] Comment on above: Result Comment: ADA RECOMMENDED LIMIT 4.0 - 6.0 ADA THERAPEUTIC TARGET < 7.0 ACTION SUGGESTED > 7.0 Performed By: #### A 1C #### [facility] [address] [place] [address] Dr. Dioni Mayorga Glucose [Mass/Vol] 111 mg/dL Normal [facility] Comment on above: Performed By: #### A 1C #### [facility] [address] [place] [address] Dr. Dioni Mayorga HbA1c (Bld) [Mass fraction] 5.5 % Normal 4.5-6.2 [facility] Comment on above: Performed By: #### A 1C #### [facility] [address] [address] [address] Dioni Mayorga LIPID PROFILEon 08-02-2021 CHOL-HDL RATIO NORM SEE BELOW Normal [facility] Comment on above: Result Comment: 3.3 - 4.4 LOW RISK 4.4 - 7.1 AVERAGE RISK 7.1 - 11.0 MODERATE RISK >11.0 HIGH RISK Performed By: #### F T3, LIPID, CMP, T7, TSH #### [facility] [address] [address] [address] Dioni Mayorga Cholesterol [Mass/Vol] 211 mg/dL Critically high <=200 [facility] Comment on above: Performed By: #### F T3, LIPID, CMP, T7, TSH #### [facility] [address] [address] [address] Dioni Mayorga Cholesterol in HDL [Mass/Vol] 48 mg/dL Normal 40-60 [facility] Comment on above: Performed By: #### F T3, LIPID, CMP, T7, TSH #### [facility] [address] [address] [address] Dioni Mayorga Cholesterol in LDL [Mass/Vol] 148.6 mg/dL Normal [facility] Comment on above: Performed By: #### F T3, LIPID, CMP, T7, TSH #### [facility] [address] [address] [address] Dioni Mayorga Cholesterol.total/Ch olesterol in HDL [Mass ratio] 4.4 {ratio} Normal [facility] Comment on above: Performed By: #### F T3, LIPID, CMP, T7, TSH #### [facility] [address] [address] [address] Dioni Mayorga HDL NORMAL > or = 60 mg/dl - LOW CARDIOVASCULAR RISK <40 mg/dl - HIGH CARDIOVASCULAR RISK Normal [facility] Comment on above: Performed By: #### F T3, LIPID, CMP, T7, TSH #### [facility] [address] [address] [address] Dioni Mayorga LDL CALC NORMAL SEE BELOW Normal [facility] Comment on above: Result Comment: <100 mg/dl OPTIMAL 100 - 129 mg/dl NEAR OR ABOVE OPTIMAL 130 - 159 mg/dl BORDERLINE HIGH 160 - 189 mg/dl HIGH >190 mg/dl VERY HIGH Performed By: #### F T3, LIPID, CMP, T7, TSH #### [facility] [address] [address] [address] Dioni Mayorga Triglyceride [Mass/Vol] 72 mg/dL Normal <=150 [facility] Comment on above: Performed By: #### F T3, LIPID, CMP, T7, TSH #### [facility] [address] [address] [address] Dioni Mayorga VLDL CALC 14.4 mg/dL Normal [facility] Comment on above: Performed By: #### F T3, LIPID, CMP, T7, TSH #### [facility] [address] [address] [address] Dioni Mayorga PROF 14(COMP METB)on 022 Albumin [Mass/Vol] 3.5 g/dL Normal 3.4-5.0 [facility] Comment on above: Performed By: #### F T3, LIPID, CMP, T7, TSH #### [facility] [address] [address] [address] Dioni Mayorga Albumin/Globulin [Mass ratio] 1.0 {ratio} Normal [facility] Comment on above: Performed By: #### F T3, LIPID, CMP, T7, TSH #### [facility] [address] [address] [address] Dioni Mayorga ALP [Catalytic activity/Vol] 62 U/L Normal 46-116 [facility] Comment on above: Performed By: #### F T3, LIPID, CMP, T7, TSH #### [facility] [address] [address] [address] Dioni Mayorga ALT [Catalytic activity/Vol] 20 U/L Normal 14-59 [facility] Comment on above: Performed By: #### F T3, LIPID, CMP, T7, TSH #### [facility] [address] [address] [address] Dioni Mayorga Anion gap [Moles/Vol] 14.0 mmol/L Normal [facility] Comment on above: Performed By: #### F T3, LIPID, CMP, T7, TSH #### [facility] [address] [address] [address] Dioni Mayorga AST [Catalytic activity/Vol] 12 U/L Critically low 15-37 [facility] Comment on above: Performed By: #### F T3, LIPID, CMP, T7, TSH #### [facility] [address] [address] [address] Dioni Mayorga Bilirubin [Mass/Vol] 0.4 mg/dL Normal 0.2-1.0 [facility] Comment on above: Performed By: #### F T3, LIPID, CMP, T7, TSH #### [facility] [address] [address] [address] Dioni Mayorga Calcium [Mass/Vol] 8.7 mg/dL Normal 8.5-10.1 [facility] Comment on above: Performed By: #### F T3, LIPID, CMP, T7, TSH #### [facility] [address] [address] [address] Dioni Mayorga Chloride [Moles/Vol] 105 mmol/L Normal 98-107 [facility] Comment on above: Performed By: #### F T3, LIPID, CMP, T7, TSH #### [facility] [address] [address] [address] Dioni Mayorga CO2 [Moles/Vol] 26.4 mmol/L Normal 21.0-32.0 [facility] Comment on above: Performed By: #### F T3, LIPID, CMP, T7, TSH #### [facility] [address] [address] [address] Dioni Mayorga Creatinine [Mass/Vol] 0.83 mg/dL Normal 0.55-1.02 [facility] Comment on above: Performed By: #### F T3, LIPID, CMP, T7, TSH #### [facility] [address] [place] [address] Dr. Dioni Mayorga EGFR-AF TAJIK >60 Normal >=60 [facility] Comment on above: Performed By: #### F T3, LIPID, CMP, T7, TSH #### [facility] [address] [address] [address] Dioni Mayorga EGFR-NON AF TAJIK >60 Normal >=60 [facility] Comment on above: Performed By: #### F T3, LIPID, CMP, T7, TSH #### [facility] [address] [address] [address] Dioni Mayorga Globulin (S) [Mass/Vol] 3.5 g/dL Normal [facility] Comment on above: Performed By: #### F T3, LIPID, CMP, T7, TSH #### [facility] [address] [address] [address] Dioni Mayorga Glucose [Mass/Vol] 78 mg/dL Normal 74-106 [facility] Comment on above: Performed By: #### F T3, LIPID, CMP, T7, TSH #### [facility] [address] [place] [address] Dr. Dioni Mayorga Potassium [Moles/Vol] 4.4 mmol/L Normal 3.5-5.1 [facility] Comment on above: Performed By: #### F T3, LIPID, CMP, T7, TSH #### [facility] [address] [address] [address] Dioni Mayorga Protein [Mass/Vol] 7.0 g/dL Normal 6.4-8.2 [facility] Comment on above: Performed By: #### F T3, LIPID, CMP, T7, TSH #### [facility] [address] [address] [address] Dioni Mayorga Sodium [Moles/Vol] 141 mmol/L Normal 136-145 [facility] Comment on above: Performed By: #### F T3, LIPID, CMP, T7, TSH #### [facility] [address] [address] [address] Dioni Mayorga Urea nitrogen [Mass/Vol] 16.0 mg/dL Normal 7.0-18.0 [facility] Comment on above: Performed By: #### F T3, LIPID, CMP, T7, TSH #### [facility] [address] [place] [address] Dr. iDoni Mayorga Urea nitrogen/Creatinine [Mass ratio] 19.3 mg/mg Normal [facility] Comment on above: Performed By: #### F T3, LIPID, CMP, T7, TSH #### [facility] [address] [place], [place] [address] Dr. Dioni Mayorga TSHon 08-02-2021 TSH 1.339 uIU/mL Normal 0.358-3.740 [facility] Comment on above: Performed By: #### F T3, LIPID, CMP, T7, TSH #### [facility] [address] [place], [place] [address] Dr. Dioni Mayorga Vital Signs Date Time Vital Sign Value Performing Clinician Faci lity 09-03-2021 08:51-0400 Blood Pressure Location MICHAEL NUGENT [facility] 09-03-2021 08:51-0400 Diastolic blood pressure 96 mm[Hg] MICHAEL NUGENT [facility] 09-03-2021 08:51-0400 Heart rate 106 /min MICHAEL NUGENT [facility] 09-03-2021 08:51-0400 Systolic blood pressure 138 mm[Hg] MICHAEL NUGENT [facility] Encounters Encounter Date Encounter Type Care Provider Facility Start: 09-13-2023 End: 09-13-2023 ambulatory Harish Cannon MD Facility:[facility] Start: 05-17-2023 End: 05-17-2023 ambulatory Harish Cannon MD Facility:[facility] Start: 04-19-2023 End: 04-19-2023 ambulatory Harish Cannon MD Facility:[facility] Start: 01-11-2023 End: 01-11-2023 ambulatory Harish Cannon MD Facility:[facility] Start: 12-07-2022 End: 12-07-2022 ambulatory Harish Cannon MD Facility:[facility] Start: 11-23-2022 End: 11-23-2022 ambulatory Harish Cannon MD Facility:[facility] Start: 11-02-2022 End: 11-02-2022 ambulatory Harish Cannon MD Facility:[facility] Start: 03-02-2022 End: 03-02-2022 ambulatory SALVADOR GROSS Facility:[facility] Start: 12-15-2021 End: 12-15-2021 ambulatory SALVADOR GROSS Facility:[facility] Start: 12-09-2021 End: 12-09-2021 ambulatory SALVADOR GROSS Facility:[facility] Start: 09-17-2021 End: 09-18-[address] MONIKA MATTHEWS Facility:[facility] Start: 09-03-[address] MONIKA MATTHEWS Facility :[facility] Start: 09-03-2021 End: 09-03-2021 Patient encounter procedure MICHAEL NUGENT [facility] Start: 08-05-2021 Encounter for genera l adult medical examination without abnormal findings DR MONIKA MATTHEWS [facility] Start: 08-02-2021 End: 08-03-2021 ambulatory [...] vaccine MICHAEL NUGENT [facility] Payers Date Payer Category Payer Unknown [id number] 2022 Unknown 2019 Unknown [id number] 1970 Unknown [id number] 2.16.84 [id number] 1970 Unknown [id number] 2.16.84 [id number] 1970 Unknown [id number] 2.16.84 [id number] 1970 Unknown [id number] 2.16.84 [id number] 1970 Unknown [id number] 2.16.84 [id number] 1970 Unknown [id number] 2.16.84 0.1.559755.3.579.2.593 1970 Unknown [id number] 2.16. 840.1.355522.3.579.2.196 1970 Unknown [id number] 2.16. 840.1.864849.3.579.2.196 1970 Unknown [id number] 2.16. 840.1.264331.3.579.2.196 1970 Unknown [id number] 2.16. 840.1.598262.3.579.2.196 1970 Unknown [id number] 2.16. 840.1.235265.3.579.2.196 1970 Unknown [id number] 2.16. [id number] 1970 Unknown [id number] 2.16. [id number] Social History Date Type Detail Facility Start: 09-03-2021 Tobacco smoking status Never s moked tobacco (finding) [facility] Tobacco smoking status Never [facility] [place] Sex Assigned At Female [facility] [place] Functional Status Date Assessment Result Facility 09-03-2021 Functional Status N/A [facility] Discharge instructions 09-03-2021 Note Date & [...] nerve stimulation). For women, using a medical imaging director to prevent urine leaks. This is a [...] right after experiencing incontinence. General instructions Take uyyc-kvi-polyhxe and prescription medicines only as told by [...] 03/11/2005 Document Revised: 02/11/2018 Document Reviewed: 05/13/2017 IMRSV Patient Education 2020 [place]. Follow Up Care 08/06/2021 08:10:07 With:pt will call once she decides how she would like to proceed Address:Unknown When: Unknown [facility] Evaluation + Plan note Note Date & Type Note Facility Evaluation + Plan note Future Appointments Appointment Date:09/17/2021 08:30:00 AM Scheduled Provider: Location:[facility] Appointment Type:URO Nurse Visit [facility] Hospital course Narrative Note Date & Type Note Facility Hospital course Narrative No data available for this section [facility] Progress note Note Date & Type Note Facility Progress note No data available for this section [facility] Summary Purpose Family History No Family History Records FoundNo Family History Records FoundNo Family History Records Found Advance Directives No Advanced Directives Records FoundNo Advanced Directives Records FoundNo Advanced Directives Records Found Additional Source Comments Care Team (unrecognized sect ion and content) Personnel Name: Monika Matthews MD Address: [address] [place] [address] INFORMATION SOURCE (unrecogn ized section and content) DATE CREATED AUTHOR 09/18/2021 [facility] DATE CREATED AUTHOR AUTHOR'S ORGANIZ ATION 03/02/2022 [facility] DATE CREATED AUTHOR AUTHOR'S ORGANIZ ATION 09/28/2023 [facility] FOR RECORDS PERTAINING TO PATIENTS [...] BE BASED ON THE PRIMARY CLINICAL RECORDS. [facility] [employer] [facility]. provides no warranty or guarantee of the accuracy or completeness of information in this document.
[2023-12-21 07:05] VITALS: BP 132/85; PULSE 100; TEMP 36.2; O2SAT 96
[2023-12-21 07:42] VITALS: BP 142/80; PULSE 75; O2SAT 95
[2023-12-21] MEDS: BUPIVACAINE HCL 0.25% PF 25 MG/10 ML VIAL INJ (07:43)
[2023-12-21 07:45] VITALS: PULSE 78; O2SAT 98
[2023-12-21 07:46] VITALS: BP 143/71
--- NOTE | 2023-12-21 07:57 | W.PM.PROCNOT ---
Date of procedure: 12/21/23 Pre-op diagnosis: Bilateral superior gluteal neuritis Post-op diagnosis: same as pre-op Procedure: bilateral Superior gluteal nerve block, diagnostic Performed under fluoroscopic guidance Immediate complications none Anesthesia: none Solution used for injection: In each syringe, 2 milliliters 0.25% Marcaine 2.5 mL is used for injection for each side Time out process compliant After informed consent obtained patient was brought to the procedure room placed in the prone position skin overlying the area was prepped and draped in a sterile fashion using betadine. 25 gauge spinal needle Insert over each of the target areas identified in fluoroscopy corresponding needles were advanced Under fluoroscopic guidance until the target/targets encountered, no indication of intravascular or Intraneuronal needle tip placement. Solution injected.needles removed post procedurally. patient transferred to recovery room in stable condition to be discharged home after meeting criteria Anesthesia: Local Surgeon: Eufemia Varghese Condition: stable Disposition: PACU
== END 2023-12-21 07:52 | disposition home or self-care (01) ==
LOC: SURGOUT 06:54
PROVIDERS: PCP Family Medicine; Visit Provider Anesthesiology Pain Medicine
DX: G57.83 Other specified mononeuropathies of bilateral lower limbs (principal)
CPT/HCPCS: 64450; J0665

== ENCOUNTER 2023-12-29 07:38 | Outpatient (OUT) | payer BC, SELFPAY ==
--- OUTSIDE RECORDS SUMMARY | 2023-12-29 07:45 | XMS_ITS | CCD ---
Author Organization [facility] CliniSyne Care Team Providers Care Plastic Manager Name Role Phone Monika Matthews Primary Care Physician [phone] DR MONIKA MATTHEWS Admitting Unavailable CASSIE, DR [...] Value Interpretation Reference Range Facility Covid-19 PCR ([facility])on 02-15 SARS-CoV-2 (COVID-19) RNA YAMILET+probe Ql (Unsp spec) Not detected Normal NOT DETECTED [facility] Comment on above: Result Comment: When [...] for this test is supported by the [place] of Health and Human Service's declaration that [...] be used). Performed By: #### C VDTB ####[facility] [id number] [address]Dr. Dioni Mayorga INFLUENZA A AND B AGon 03-02 [facility] SEE BELOW Normal [facility] Comment on above: Result Comment: Nega tive for Flu A protein angiten. Infection due to Flu A cannot be ruled out. Flu A angiten in the sample may be below the detection limit of the test. Performed By: #### I NFLUAB #### [facility] [address] [place] [address] Dr. Dioni Mayorga [facility] SEE BELOW Normal [facility] Comment on above: Result Comment: Nega tive for Flu B protein antigen. Infection due to Flu B cannot be ruled out. Flu B antigen in the sample may be below the detection limit of the test. Performed By: #### I NFLUAB #### [facility] [address] [place] [address] Dr. Dioni Mayorga INFLUENZA A AG Negative Normal NEGATIVE SEE COMMENT [facility] Comment on above: Performed By: #### I NFLUAB #### [facility] [address] [place] [address] Dr. Dioni Mayorga INFLUENZA B AG Negative Normal NEGATIVE SEE COMMENT [facility] Comment on above: Performed By: #### I NFLUAB #### [facility] [address] [place] [address] Dr. Dioni Mayorga ASYMPTOMATIC COVID-19 ANTIGE Non 12-15-2021 EUA Statement SEE BELOW Normal [facility] Comment on above: Result Comment: [...] sooner. Performed By: #### C VDAGA #### [facility] [address] [place] [address] Dr. Dioni Mayorga SARS-CoV-2 (COVID-19) RNA YAMILET+probe Ql (Unsp spec) Negative Normal NEGATIVE [facility] Comment on above: Result Comment: Nega tive results are presumptive. They do not preclude infection and should not be used as the sole basis for treatment decisions. Additional confirmatory testing by a molecular method should be considered. Performed By: #### C VDAGA #### [facility] [address] [place] [id number] [address] Dioni Mayorga [facility]on 11-16 SARS-CoV-2 (COVID-19) RNA YAMILET+probe Ql (Unsp spec) Detected Critically abnormal NOT DETECTED [facility] Comment on above: Result Comment: This test is not yet approved or cleared by the [place] FDA. When there are no FDA-approved or cleared tests available, and other criteria are met, FDA can make tests available under an emergency access mechanism called an Emergency Use Authorization (EUA). The EUA for this test is supported by the Credit Administration Officer of Health and Human Service's declaration that [...] longer be used). Performed By: #### C [facility] ####[facility] [id number] [place], [place] [address]Ix. Dioni Mayorga MG MAMM SCREEN 3D DUSTIN CADon 09-17-2021 MG MAMM SCREEN 3D DUSTIN CAD Patient: BARBARA BACA Exam Date: 09/17/2021 : 1970 Gender:F Ordering : DR MONIKA MATTHEWS . Admission #: [id number] Family : Order #: [id number] CLICK HERE TO VIEW EXAM RADIOLOGY REPORT PROCEDURE: MAMMOGRAM SCREENING 3D BILATERAL CAD COMPARISON: MG MAMM SCREEN 3D DUSTIN CAD, 05/08/2020. MAMMO POST BIOPSY RIGHT, 01/04/2018. INDICATIONS: Screening mammography Calculator Name NCI Breast Cancer Risk Assessment Tool 5 Year Breast Cancer Risk 1.00% Lifetime Breast Cancer Risk 9.60% Personal Breast Cancer No Personal Ovarian Cancer No Treatments None Family Cancers None LOCATION: [facility] BREAST COMPOSITION: Scattered areas fibroglandular density. [...] Rodarte M.D. on 09/17/2021 at 13:13 Normal [facility] Formson 09-04-2021 Forms [id number] #1.00CD:127 Normal [facility] Patient Educationon 09-05-19 Patient Education [...] Take ove (more content not included)... Normal [facility] Physician Referralon 022 Physician Referral [id number] 0#1.00CD:127 Normal [facility] Urology Office/Clinic Noteon 09-04-2021 Urology [...] had hysterectomy about 10 yrs ago. previous BIOSTATISTICS DIRECTOR advised her bladder had dropped a bit. [...] E&M of New Patient Moderate 45-59 Min 71695 Follow-up With When Contact Information pt will [...] - Not Given Postpone due to refusal [facility] Comment on above: Result Comment: Elec tronically Signed By: MICHAEL NUGENT PA-C\.br\Date and Time Signed: 09/04/21 09:42 EDT Ambulatory Visit Summaryon 0 09-03-2021 Ambulatory Visit Summary BARBARA BACA :1970 Visit Date:09/03/2021 Ambulatory Visit Instructions Your Diagnosis Stress incontinence Tests Performed Urnls Dip Stick Auto w/o Microscopy POC 18214 Your Care Team Attending Physician - MICHAEL [...] Urnls Dip Stick Auto w/o Microscopy POC 33487 (09/03/2021) Bilirubin Urine Dipstick - Negative Blood Urine Dipstick - Trace-intact Glucose Urine Dipstick - Negative Ketones Urine Dipstick - Negative Leukocytes Urine Dipstick - Negative Nitrite Urine Dipstick - Negative Protein Urine Dipstick - Negative Specific [place] Urine Dipstick - 1.020 Urine Appearance Urine Dipstick - Clear Urine Color Urine Dipstick - Yellow Urobilinogen Urine Dipstick - Normal 0.2-1 EU/dl pH Urine Dipstick - 5 Medications and Immunizations Administered Not Given SARS-CoV-2 mRNA (tozinameran 5y-11y) vac, Postpone due to refusal Allergies No Known Allergies No Known Medication Allergies Normal [facility] CBC AUTO DIFFon 08-02-2021 BASO # 0.0 103/ul Normal 0.0-0.1 [facility] Comment on above: Performed By: #### C BC #### [facility] [address] [place] [address] Dr. Dioni Mayorga Basophils/100 WBC (Bld) 0.4 % Normal 0.2-2.0 [facility] Comment on above: Performed By: #### C BC #### [facility] [address] [place] [address] Dr. Dioni Mayorga EO # 0.1 103/ul Normal 0.0-0.7 [facility] Comment on above: Performed By: #### C BC #### [facility] [address] [place] [address] Dr. Dioni Mayorga Eosinophils/100 WBC (Bld) 1.0 % Normal 0.9-7.0 [facility] Comment on above: Performed By: #### C BC #### [facility] [address] [place] [address] Dr. Dioni Mayorga Erythrocyte distribution width (RBC) [Ratio] 13.4 % Normal 11.0-15.0 [facility] Comment on above: Performed By: #### C BC #### [facility] [address] [place] [address] Dr. Dioni Mayorga Hematocrit (Bld) [Volume fraction] 45.2 % Normal 36.0-48.0 [facility] Comment on above: Performed By: #### C BC #### [facility] [address] [place] [address] Dr. Dioni Mayorga Hemoglobin (Bld) [Mass/Vol] 14.5 g/dL Normal 12.0-16.0 [facility] Comment on above: Performed By: #### C BC #### [facility] [address] [place] [address] Dr. Dioni Mayorga IG # 0.02 10e3/ul Normal 0.00-0.03 [facility] Comment on above: Performed By: #### C BC #### [facility] [address] [place] [address] Dr. Dioni Mayorga IG % 0.3 % Normal 0.0-0.5 [facility] Comment on above: Performed By: #### C BC #### [facility] [address] [place] [address] Dr. Dioni Mayorga LYMPH # 2.7 103/ul Normal 1.2-3.8 [facility] Comment on above: Performed By: #### C BC #### [facility] [address] [place] [address] Dr. Dioni Mayorga Lymphocytes/100 WBC (Bld) 38.7 % Normal 20.5-60.0 [facility] Comment on above: Performed By: #### C BC #### [facility] [address] [place] [address] Dr. Dioni Mayorga MANUAL DIFF REQ NO Normal [facility] Comment on above: Performed By: #### C BC #### [facility] [address] [place] [address] Dr. Dioni Mayorga MCH (RBC) [Entitic mass] 28.4 pg Normal 26.7-34.0 [facility] Comment on above: Performed By: #### C BC #### [facility] [address] [place] [address] Dr. Dioni Mayorga MCHC (RBC) [Mass/Vol] 32.1 g/dL Normal 29.9-35.2 [facility] Comment on above: Performed By: #### C BC #### [facility] [address] [place] [address] Dr. Dioni Mayorga MCV (RBC) [Entitic vol] 88.5 fL Normal 81.0-99.0 [facility] Comment on above: Performed By: #### C BC #### [facility] [address] [address] [address] Dioni Mayorga MONO # 0.4 103/ul Normal 0.3-0.8 [facility] Comment on above: Performed By: #### C BC #### [facility] [address] [address] [address] Dioni Mayorga Monocytes/100 WBC (Bld) 6.2 % Normal 1.7-12.0 [facility] Comment on above: Performed By: #### C BC #### [facility] [address] [address] [address] Dioni Mayorga NEUT # 3.7 103/ul Normal 1.4-6.5 [facility] Comment on above: Performed By: #### C BC #### [facility] [address] [place] [address] Dr. Dioni Mayorga Neutrophils/100 WBC (Bld) 53.4 % Normal 43.0-75.0 [facility] Comment on above: Performed By: #### C BC #### [facility] [address] [place] [address] Dr. Dioni Mayorga Platelet mean volume (Bld) [Entitic vol] 10.4 fL Normal 9.5-13.5 [facility] Comment on above: Performed By: #### C BC #### [facility] [address] [place] [address] Dr. Dioni Mayorga PLT 340 103/ul Normal 150-450 [facility] Comment on above: Performed By: #### C BC #### [facility] [address] [place] [address] Dr. Dioni Mayorga RBC 5.11 106/ul Normal 4.20-5.40 [facility] Comment on above: Performed By: #### C BC #### [facility] [address] [place] [address] Dr. Dioni Mayorga WBC 6.9 103/ul Normal 4.0-11.0 [facility] Comment on above: Performed By: #### C BC #### [facility] [address] [address] [address] Dioni Mayorga FREE T3on 08-02-2021 FREE T3 1.49 pg/mlL Critically low 2.18-3.98 [facility] Comment on above: Performed By: #### F T3, LIPID, CMP, T7, TSH #### [facility] [address] [address] [address] Dioni Mayorga FREE THYROXINE INDEX T7on FTI 2.77 Normal 1.30-4.50 [facility] Comment on above: Performed By: #### F T3, LIPID, CMP, T7, TSH #### [facility] [address] [address] [address] Dioni Mayorga T3U 36.0 % Normal 30.0-39.0 [facility] Comment on above: Performed By: #### F T3, LIPID, CMP, T7, TSH #### [facility] [address] [place] [address] Dr. Dioni Mayorga T4 [Mass/Vol] 7.70 ug/dL Normal 4.80-13.90 [facility] Comment on above: Performed By: #### F T3, LIPID, CMP, T7, TSH #### [facility] [address] [address] [address] Dioni Mayorga GLYCOHEMOGLOBIN A1Con 2021 ADA RECOMMENDATION SEE BELOW Normal [facility] Comment on above: Result Comment: ADA RECOMMENDED LIMIT 4.0 - 6.0 ADA THERAPEUTIC TARGET < 7.0 ACTION SUGGESTED > 7.0 Performed By: #### A 1C #### [facility] [address] [place] [address] Dr. Dioni Mayorga Glucose [Mass/Vol] 111 mg/dL Normal [facility] Comment on above: Performed By: #### A 1C #### [facility] [address] [place] [address] Dr. Dioni Mayorga HbA1c (Bld) [Mass fraction] 5.5 % Normal 4.5-6.2 [facility] Comment on above: Performed By: #### A 1C #### [facility] [address] [address] [address] Dioni Mayorga LIPID PROFILEon 08-02-2021 CHOL-HDL RATIO NORM SEE BELOW Normal [facility] Comment on above: Result Comment: 3.3 - 4.4 LOW RISK 4.4 - 7.1 AVERAGE RISK 7.1 - 11.0 MODERATE RISK >11.0 HIGH RISK Performed By: #### F T3, LIPID, CMP, T7, TSH #### [facility] [address] [address] [address] Dioni Mayorga Cholesterol [Mass/Vol] 211 mg/dL Critically high <=200 [facility] Comment on above: Performed By: #### F T3, LIPID, CMP, T7, TSH #### [facility] [address] [address] [address] Dioni Mayorga Cholesterol in HDL [Mass/Vol] 48 mg/dL Normal 40-60 [facility] Comment on above: Performed By: #### F T3, LIPID, CMP, T7, TSH #### [facility] [address] [address] [address] Dioni Mayorga Cholesterol in LDL [Mass/Vol] 148.6 mg/dL Normal [facility] Comment on above: Performed By: #### F T3, LIPID, CMP, T7, TSH #### [facility] [address] [address] [address] Dioni Mayorga Cholesterol.total/Ch olesterol in HDL [Mass ratio] 4.4 {ratio} Normal [facility] Comment on above: Performed By: #### F T3, LIPID, CMP, T7, TSH #### [facility] [address] [address] [address] Dioni Mayorga HDL NORMAL > or = 60 mg/dl - LOW CARDIOVASCULAR RISK <40 mg/dl - HIGH CARDIOVASCULAR RISK Normal [facility] Comment on above: Performed By: #### F T3, LIPID, CMP, T7, TSH #### [facility] [address] [address] [address] Dioni Mayorga LDL CALC NORMAL SEE BELOW Normal [facility] Comment on above: Result Comment: <100 mg/dl OPTIMAL 100 - 129 mg/dl NEAR OR ABOVE OPTIMAL 130 - 159 mg/dl BORDERLINE HIGH 160 - 189 mg/dl HIGH >190 mg/dl VERY HIGH Performed By: #### F T3, LIPID, CMP, T7, TSH #### [facility] [address] [address] [address] Dioni Mayorga Triglyceride [Mass/Vol] 72 mg/dL Normal <=150 [facility] Comment on above: Performed By: #### F T3, LIPID, CMP, T7, TSH #### [facility] [address] [address] [address] Dioni Mayorga VLDL CALC 14.4 mg/dL Normal [facility] Comment on above: Performed By: #### F T3, LIPID, CMP, T7, TSH #### [facility] [address] [address] [address] Dioni Mayorga PROF 14(COMP METB)on 022 Albumin [Mass/Vol] 3.5 g/dL Normal 3.4-5.0 [facility] Comment on above: Performed By: #### F T3, LIPID, CMP, T7, TSH #### [facility] [address] [address] [address] Dioni Mayorga Albumin/Globulin [Mass ratio] 1.0 {ratio} Normal [facility] Comment on above: Performed By: #### F T3, LIPID, CMP, T7, TSH #### [facility] [address] [address] [address] Dioni Mayorga ALP [Catalytic activity/Vol] 62 U/L Normal 46-116 [facility] Comment on above: Performed By: #### F T3, LIPID, CMP, T7, TSH #### [facility] [address] [address] [address] Dioni Mayorga ALT [Catalytic activity/Vol] 20 U/L Normal 14-59 [facility] Comment on above: Performed By: #### F T3, LIPID, CMP, T7, TSH #### [facility] [address] [address] [address] Dioni Mayorga Anion gap [Moles/Vol] 14.0 mmol/L Normal [facility] Comment on above: Performed By: #### F T3, LIPID, CMP, T7, TSH #### [facility] [address] [address] [address] Dioni Mayorga AST [Catalytic activity/Vol] 12 U/L Critically low 15-37 [facility] Comment on above: Performed By: #### F T3, LIPID, CMP, T7, TSH #### [facility] [address] [address] [address] Dioni Mayorga Bilirubin [Mass/Vol] 0.4 mg/dL Normal 0.2-1.0 [facility] Comment on above: Performed By: #### F T3, LIPID, CMP, T7, TSH #### [facility] [address] [address] [address] Dioni Mayorga Calcium [Mass/Vol] 8.7 mg/dL Normal 8.5-10.1 [facility] Comment on above: Performed By: #### F T3, LIPID, CMP, T7, TSH #### [facility] [address] [address] [address] Dioni Mayorga Chloride [Moles/Vol] 105 mmol/L Normal 98-107 [facility] Comment on above: Performed By: #### F T3, LIPID, CMP, T7, TSH #### [facility] [address] [address] [address] Dioni Mayorga CO2 [Moles/Vol] 26.4 mmol/L Normal 21.0-32.0 [facility] Comment on above: Performed By: #### F T3, LIPID, CMP, T7, TSH #### [facility] [address] [address] [address] Dioni Mayorga Creatinine [Mass/Vol] 0.83 mg/dL Normal 0.55-1.02 [facility] Comment on above: Performed By: #### F T3, LIPID, CMP, T7, TSH #### [facility] [address] [place] [address] Dr. Dioni Mayorga EGFR-AF SYRIAN >60 Normal >=60 [facility] Comment on above: Performed By: #### F T3, LIPID, CMP, T7, TSH #### [facility] [address] [address] [address] Dioni Mayorga EGFR-NON AF SYRIAN >60 Normal >=60 [facility] Comment on above: Performed By: #### F T3, LIPID, CMP, T7, TSH #### [facility] [address] [address] [address] Dioni Mayorga Globulin (S) [Mass/Vol] 3.5 g/dL Normal [facility] Comment on above: Performed By: #### F T3, LIPID, CMP, T7, TSH #### [facility] [address] [address] [address] Dioni Mayorga Glucose [Mass/Vol] 78 mg/dL Normal 74-106 [facility] Comment on above: Performed By: #### F T3, LIPID, CMP, T7, TSH #### [facility] [address] [place] [address] Dr. Dioni Mayorga Potassium [Moles/Vol] 4.4 mmol/L Normal 3.5-5.1 [facility] Comment on above: Performed By: #### F T3, LIPID, CMP, T7, TSH #### [facility] [address] [address] [address] Dioni Mayorga Protein [Mass/Vol] 7.0 g/dL Normal 6.4-8.2 [facility] Comment on above: Performed By: #### F T3, LIPID, CMP, T7, TSH #### [facility] [address] [address] [address] Dioni Mayorga Sodium [Moles/Vol] 141 mmol/L Normal 136-145 [facility] Comment on above: Performed By: #### F T3, LIPID, CMP, T7, TSH #### [facility] [address] [address] [address] Dioni Mayorga Urea nitrogen [Mass/Vol] 16.0 mg/dL Normal 7.0-18.0 [facility] Comment on above: Performed By: #### F T3, LIPID, CMP, T7, TSH #### [facility] [address] [place] [address] Dr. Dioni Mayorga Urea nitrogen/Creatinine [Mass ratio] 19.3 mg/mg Normal [facility] Comment on above: Performed By: #### F T3, LIPID, CMP, T7, TSH #### [facility] [address] [place], [place] [address] Dr. Dioni Mayorga TSHon 08-02-2021 TSH 1.339 uIU/mL Normal 0.358-3.740 [facility] Comment on above: Performed By: #### F T3, LIPID, CMP, T7, TSH #### [facility] [address] [place], [place] [address] Dr. Dioni Mayorga Vital Signs Date Time Vital Sign Value Performing Clinician Faci lity 09-03-2021 08:51-0400 Blood Pressure Location MICHAEL NUGENT [facility] 09-03-2021 08:51-0400 Diastolic blood pressure 96 mm[Hg] MICHAEL NUGENT [facility] 09-03-2021 08:51-0400 Heart rate 106 /min MICHAEL NUGENT [facility] 09-03-2021 08:51-0400 Systolic blood pressure 138 mm[Hg] MICHAEL NUGENT [facility] Encounters Encounter Date Encounter Type Care Provider Facility Start: 09-13-2023 End: 09-13-2023 ambulatory Harish Cannon MD Facility:[facility] Start: 05-17-2023 End: 05-17-2023 ambulatory Harish Cannon MD Facility:[facility] Start: 04-19-2023 End: 04-19-2023 ambulatory Harish Cannon MD Facility:[facility] Start: 01-11-2023 End: 01-11-2023 ambulatory Harish Cannon MD Facility:[facility] Start: 12-07-2022 End: 12-07-2022 ambulatory Harish Cannon MD Facility:[facility] Start: 11-23-2022 End: 11-23-2022 ambulatory Harish Cannon MD Facility:[facility] Start: 11-02-2022 End: 11-02-2022 ambulatory Harish Cannon MD Facility:[facility] Start: 03-02-2022 End: 03-02-2022 ambulatory SALVADOR GROSS Facility:[facility] Start: 12-15-2021 End: 12-15-2021 ambulatory SALVADOR GROSS Facility:[facility] Start: 12-09-2021 End: 12-09-2021 ambulatory SALVADOR GROSS Facility:[facility] Start: 09-17-2021 End: 09-18-[address] MONIKA MATTHEWS Facility:[facility] Start: 09-03-[address] MONIKA MATTHEWS Facility :[facility] Start: 09-03-2021 End: 09-03-2021 Patient encounter procedure MICHAEL NUGENT [facility] Start: 08-05-2021 Encounter for genera l adult medical examination without abnormal findings DR MONIKA MATTHEWS [facility] Start: 08-02-2021 End: 08-03-[address] MONIKA MATTHEWS Facility:[facility] Start: 08-02-2021 End: 08-03-2021 Encounter for general adult medical examination without abnormal findings DR MONIKA MATTHEWS Facility:[facility] Procedures Date Procedure Procedure Detail Performing Clinician Hysterectomy MICHAEL NUGENT Immunizations Immunization Date Immunization Notes Care Provider Fa roly NEGATED: Highlighted row has not occurred!09-03-2021 SARS-CoV-2 mRNA (tozinameran 5y-11y) vaccine MICHAEL NUGENT [facility] Payers Date Payer Category Payer Unknown [id number] 2022 Unknown 2019 Unknown [id number] 1970 Unknown [id number] 2.16.84 [id number] 1970 Unknown [id number] 2.16.84 [id number] 1970 Unknown [id number] 2.16.84 [id number] 1970 Unknown [id number] 2.16.84 [id number] 1970 Unknown [id number] 2.16.84 [id number] 1970 Unknown [id number] 2.16.84 0.1.451576.3.579.2.593 1970 Unknown [id number] 2.16. 840.1.252971.3.579.2.196 1970 Unknown [id number] 2.16. 840.1.751390.3.579.2.196 1970 Unknown [id number] 2.16. 840.1.198771.3.579.2.196 1970 Unknown [id number] 2.16. 840.1.689663.3.579.2.196 1970 Unknown [id number] 2.16. 840.1.188827.3.579.2.196 1970 Unknown [id number] 2.16. 840.1.209603.3.579.2.196 1970 Unknown [id number] 2.16. 840.1.711909.3.579.2.196 Social History Date Type Detail Facility Start: 09-03-2021 Tobacco smoking status Never s moked tobacco (finding) [facility] Tobacco smoking status Never [facility] [place] Sex Assigned At Female [facility] Functional Status Date Assessment Result Facility 09-03-2021 Functional Status N/A [facility] Discharge instructions 09-03-2021 Note Date & [...] nerve stimulation). For women, using a medical transcriptionist to prevent urine leaks. This is a [...] right after experiencing incontinence. General instructions Take olic-sjb-rluoqud and prescription medicines only as told by [...] 03/11/2005 Document Revised: 02/11/2018 Document Reviewed: 05/13/2017 [employer] Patient Education 2020 [employer]. Follow Up Care 08/06/2021 08:10:07 With:pt will call once she decides how she would like to proceed Address:Unknown When: Unknown [facility] Evaluation + Plan note Note Date & Type Note Facility Evaluation + Plan note Future Appointments Appointment Date:09/17/2021 08:30:00 AM Scheduled Provider: Location:[facility] Appointment Type:URO Nurse Visit [facility] Hospital course Narrative Note Date & Type Note Facility Hospital course Narrative No data available for this section [facility] Progress note Note Date & Type Note Facility Progress note No data available for this section [facility] Summary Purpose Family History No Family History Records FoundNo Family History Records FoundNo Family History Records Found Advance Directives No Advanced Directives Records FoundNo Advanced Directives Records FoundNo Advanced Directives Records Found Additional Source Comments Care Team (unrecognized sect ion and content) Personnel Name: Monika Matthews MD Address: [address] [place] [address] INFORMATION SOURCE (unrecogn ized section and content) DATE CREATED AUTHOR 09/18/2021 [facility] DATE CREATED AUTHOR AUTHOR'S ORGANIZ ATION 03/02/2022 [facility] DATE CREATED AUTHOR AUTHOR'S ORGANIZ ATION 09/28/[address] [facility] FOR RECORDS PERTAINING TO PATIENTS WHO [...] BE BASED ON THE PRIMARY CLINICAL RECORDS. [facility] [employer] [facility]. provides no warranty or guarantee of the accuracy or completeness of information in this document.
--- NOTE | 2023-12-29 08:18 | P.CN_ITS ---
Consult Note: HPI Data of Consult Patient: known to practice within the last 3 years Consult date: 04/19/23 Requesting Physician: Therese Montelongo NP Primary Care Provider: Romero Dykes MD Consult Narrative Reason for consult: chronic low back pain Narrative: 52yof who presents for assessment of chronic low back pain. Patient previously evaluated by Dr Cannon and MRI imaging was consistent with lumbar radiculopathy/lumbar stenosis with NC. Patient continues to engage in HEP greater than 6 weeks. Patient has found benefit to baclofen 10 HS, gabapentin 100mg HS and diclofenac 100mg BID PRN without side effects. Pain today 6/10 increasing to 10/10, aching dull. Pain increased with standing, walking, lying down, rolling over, sitting, bending, decreased with sleep and heat. Recently underwent bilateral superior gluteal nerve block with 80% improvement in pain and functional ability immediately following and hours after the injection, significant improvement in ability to complete tasks at work and bend/twist. Pain decreased to 1-2/10 post op, pre-op pain up to 10/10 with bending twisting. denies numbness, tingling, weakness and loss of bowel or bladder. cc:: CC: Therese Montelongo NP Review of Systems ROS Status of ROS 10 or more systems reviewed and unremark able except as noted in history and below Musculoskeletal Reports: back pain PFSH PFSH Medical History Low back ache ?M54.50 - Low back pain, unspecified (ICD-10) Obesity ?E66.9 - Obesity, unspecified (ICD-10) Surgical History H/O tooth extraction ?K08.409 - Partial loss of teeth, unspecified cause, unspecified class (ICD- 10) H/O: hysterectomy ?Z90.710 - Acquired absence of both cervix and uterus (ICD-10) Social History Smoking status: Never smoker Meds Home Medications and Allergies Home Medications ?Medication ?Instructions ?Recorded ?Confirmed ?Type loratadine-pseudoephedrine ER 10 1 tab PO DAILY 11/02/22 12/21/23 History mg-240 mg tablet,extended [id number] (Claritin-D 24 Hour) baclofen 10 mg tablet 10 mg PO DAILY PRN muscle spasm 11/17/23 12/21/23 History celecoxib 200 mg capsule (Celebrex) 200 mg PO BID 12/14/23 12/21/23 History acetaminophen 325 mg tablet 325 mg PO Q6H PRN pain 12/21/23 12/21/23 History (Tylenol) Allergies Allergy/AdvReac Type Severity Reaction Status Date / Time No Known Drug Allergies Allergy Verified 12/21/23 07:08 Exam Constitutional Documenting provider has reviewed patient's vital signs: yes Common normals: no apparent distress, oriented x3, healthy appearing, alert and well nourished General appearance: cooperative Nutritional appearance: obese HENMT Common normals: normocephalic, hearing grossly normal bilaterally and moist oral mucous membranes Head and scalp: normocephalic Eye Common normals: PERRL Pupil: PERRL Neck & C-Spine Common normals: full ROM General: normal visual inspection Chest Common normals: inspection of chest normal Respiratory Common normals: normal respiratory effort, no retractions and no use of accessory muscles Back & Pelvis Common normals: no CVA tenderness Lumbar spine/lower back: normal to inspection, lumbar ROM normal, ROM limited, paraspinal muscle tenderness, paraspinal muscle spasm and straight leg raise negative bilaterally Other: strength 5/5 BLE sensation intact increased pain and dysthesia over bilateral superior cluneal nerves Extremity Common normals: normal to inspection and full ROM Neuro Common normals: oriented x3, CN's II-XII intact bilaterally, moves all extremities, no focal motor deficits, no sensory deficits noted and deep tendon reflexes 2+ bilaterally Sensorium/orientation: alert Motor exam: strength 5/5 throughout and no movement abnormalities noted Psych Common normals: mental status grossly normal, thought process normal, cooperative, affect normal, speech normal and activity/motor behavior normal Speech: normal speech Thought process: normal thought process Results Additional Findings Additional findings: If on a controlled substance or opioids, I have checked an [place] report on this patient and there are no aberrancies noted in the prescribing history.??If on a controlled substance or opioid a drug screen was completed and reviewed within the last year, and if there has not been a drug screen completed we ordered one today to monitor higher risk, state monitored pain medication use. As part of providing excellent, safe, comprehensive care, the following was completed at our patient's visit: 1. A medication reconciliation and review to ensure accurate knowledge of current/active medications, including asking our patients to inform us about any [id number] medications or herbal remedies/nutritional supplements/alternative remedies. 2. A review to specifically ensure our patients have had annual screening for screening for depression, screening for tobacco use, and screening for unhealthy alcohol use. For concerning screenings had a discussion with the patient, provided patient education, and recommended follow-up with primary care provider when appropriate. If patient noted with a risk of falling, they received education on strength, gait, and balance training to prevent future risk of falling. Assessment and Plan Assessment and Plan (1) Unspecified mononeuropathy of left lower limb: (2) Unspecified mononeuropathy of right lower limb: (3) Myalgia, other site: (4) Lumbar degenerative disc disease: (5) Lumbar stenosis without neurogenic claudication: (6) Lumbar spondylosis: Plan left then right superior gluteal nerve RFA under fluoroscopy with 10mg PO valium 30-60mins prior to procedure. risks vs benefits reviewed continue current medications continue HEP as tolerated continue heat and PRN TENS f/u 1 month after RFAs complete
== END 2023-12-29 07:39 | disposition home or self-care (01) ==
LOC: PM 07:42
PROVIDERS: PCP Family Medicine; Visit Provider Nurse Practitioner
DX: G57.93 Unspecified mononeuropathy of bilateral lower limbs (principal); M79.18 Myalgia, other site; M51.369 Other intervertebral disc degeneration, lumbar region without mention of lumbar back pain or lower extremity pain; M48.062 Spinal stenosis, lumbar region with neurogenic claudication; M47.816 Spondylosis without myelopathy or radiculopathy, lumbar region
CPT/HCPCS: G0463

== ENCOUNTER 2024-01-04 06:52 | Day surgery (SDC) | payer BC, SELFPAY ==
--- OUTSIDE RECORDS SUMMARY | 2024-01-04 06:55 | XMS_ITS | CCD ---
Author Organization [facility] [employer]ini[employer]ks Care Team Providers Care Load Builder Name Role Phone Monika Matthews Primary Care [...] Value Interpretation Reference Range Facility Covid-19 PCR ([facility])on 02-15 SARS-CoV-2 (COVID-19) RNA YAMILET+probe Ql (Unsp spec) Not detected Normal NOT DETECTED [facility] Comment on above: Result Comment: [...] for this test is supported by the [place] of Health and Human Service's declaration that [...] be used). Performed By: #### C VDTB ####[facility] [id number] [place] [address]Dr. Dioni Mayorga INFLUENZA A AND B AGon 03-02 [facility] SEE BELOW Normal [facility] Comment on above: Result Comment: Nega tive for Flu A protein angiten. Infection due to Flu A cannot be ruled out. Flu A angiten in the sample may be below the detection limit of the test. Performed By: #### I NFLUAB #### [facility] [address] [place] [address] Dr. Dioni [facility] Normal [facility] Comment on above: Result Comment: Nega tive for Flu B protein antigen. Infection due to Flu B cannot be ruled out. Flu B antigen in the sample may be below the detection limit of the test. Performed By: #### I NFLUAB #### [facility] [address] [place] [address] Dr. Dioni Mayorga INFLUENZA A AG Negative Normal NEGATIVE SEE COMMENT [facility] Comment on above: Performed By: #### I NFLUAB #### [facility] [address] [place] [address] Dr. Dioni Mayorga INFLUENZA B AG Negative Normal NEGATIVE SEE COMMENT [facility] Comment on above: Performed By: #### I NFLUAB #### [facility] [address] [place] [address] Dr. Dioni Mayorga ASYMPTOMATIC COVID-19 ANTIGE Non 12-15-2021 EUA Statement SEE BELOW Normal [facility] Comment on above: Result Comment: This [...] sooner. Performed By: #### C VDAGA #### [facility] [address] [place] [address] Dr. Dioni Mayorga SARS-CoV-2 (COVID-19) RNA YAMILET+probe Ql (Unsp spec) Negative Normal NEGATIVE [facility] Comment on above: Result Comment: Nega tive results are presumptive. They do not preclude infection and should not be used as the sole basis for treatment decisions. Additional confirmatory testing by a molecular method should be considered. Performed By: #### C VDAGA #### [facility] [address] [place] [address] [id number] [address] Dioni Mayorg[facility] SARS-CoV-2 (COVID-19) RNA YAMILET+probe Ql (Unsp spec) Detected Critically abnormal NOT DETECTED [facility] Comment on above: Result Comment: This test is not yet approved or cleared by the [place] FDA. When there are no FDA-approved or cleared tests available, and other criteria are met, FDA can make tests available under an emergency access mechanism called an Emergency Use Authorization (EUA). The EUA for this test is supported by the Plumbing Service Technician of Health and Human Service's declaration that [...] be used). Performed By: #### C [facility] ####[facility] [id number] [place], [place] [address]Nd. Dioni Mayorga MG MAMM SCREEN 3D DUSTIN CADon 09-17-2021 MG MAMM SCREEN 3D DUSTIN CAD Patient: BARBARA BACA Exam Date: 09/17/2021 : 1970 Gender:F Ordering : DR MONIKA MATTHEWS . Admission #: [id number] Family : Order #: [id number] CLICK HERE TO VIEW EXAM RADIOLOGY REPORT PROCEDURE: MAMMOGRAM SCREENING 3D BILATERAL CAD COMPARISON: MG MAMM SCREEN 3D DUSTIN CAD, 05/08/2020. MAMMO POST BIOPSY RIGHT, 01/04/2018. INDICATIONS: Screening mammography Calculator Name NCI Breast Cancer Risk Assessment Tool 5 Year Breast Cancer Risk 1.00% Lifetime Breast Cancer Risk 9.60% Personal Breast Cancer No Personal Ovarian Cancer No Treatments None Family Cancers None LOCATION: [facility] BREAST COMPOSITION: Scattered areas fibroglandular [...] Normal [facility] Formson 09-04-2021 Forms [id number] #1.00CD:127 Normal [facility] Patient Educationon 09-05-19 Patient Education Obstetrics [...] Take ove (more content not included)... Normal [facility] Physician Referralon 022 Physician Referral [id number]#1.00CD:127 Normal [facility] Urology Office/Clinic Noteon 09-04-2021 Urology Office/Clinic [...] had hysterectomy about 10 yrs ago. previous COLLECTIONS MANAGER advised her bladder had dropped a bit. [...] E&M of New Patient Moderate 45-59 Min 60660 Follow-up With When Contact Information pt will [...] Given Postpone due to refusal [facility] Comment on above: Result Comment: Elec tronically Signed By: MICHAEL NUGENT PA-C\.br\Date and Time Signed: 09/04/21 09:42 EDT Ambulatory Visit Summaryon 0 09-03-2021 Ambulatory Visit Summary BARBARA BACA :1970 Visit Date:09/03/2021 Ambulatory Visit Instructions Your Diagnosis Stress incontinence Tests Performed Urnls Dip Stick Auto w/o Microscopy POC 48532 Your Care Team Attending Physician - MICHAEL [...] Urnls Dip Stick Auto w/o Microscopy POC 39585 (09/03/2021) Bilirubin Urine Dipstick - Negative Blood Urine Dipstick - Trace-intact Glucose Urine Dipstick - Negative Ketones Urine Dipstick - Negative Leukocytes Urine Dipstick - Negative Nitrite Urine Dipstick - Negative Protein Urine Dipstick - Negative Specific [place] Urine Dipstick - 1.020 Urine Appearance Urine Dipstick - Clear Urine Color Urine Dipstick - Yellow Urobilinogen Urine Dipstick - Normal 0.2-1 EU/dl pH Urine Dipstick - 5 Medications and Immunizations Administered Not Given SARS-CoV-2 mRNA (tozinameran 5y-11y) vac, Postpone due to refusal Allergies No Known Allergies No Known Medication Allergies Normal [facility] CBC AUTO DIFFon 08-02-2021 BASO # 0.0 103/ul Normal 0.0-0.1 [facility] Comment on above: Performed By: #### C BC #### [facility] [address] [place] [address] Dr. Dioni Mayorga Basophils/100 WBC (Bld) 0.4 % Normal 0.2-2.0 [facility] Comment on above: Performed By: #### C BC #### [facility] [address] [place] [address] Dr. Dioni Mayorga EO # 0.1 103/ul Normal 0.0-0.7 [facility] Comment on above: Performed By: #### C BC #### [facility] [address] [place] [address] Dr. Dioni Mayorga Eosinophils/100 WBC (Bld) 1.0 % Normal 0.9-7.0 [facility] Comment on above: Performed By: #### C BC #### [facility] [address] [place] [address] Dr. Dioni Mayorga Erythrocyte distribution width (RBC) [Ratio] 13.4 % Normal 11.0-15.0 [facility] Comment on above: Performed By: #### C BC #### [facility] [address] [place] [address] Dr. Dioni Mayorga Hematocrit (Bld) [Volume fraction] 45.2 % Normal 36.0-48.0 [facility] Comment on above: Performed By: #### C BC #### [facility] [address] [place] [address] Dr. Dioni Mayorga Hemoglobin (Bld) [Mass/Vol] 14.5 g/dL Normal 12.0-16.0 [facility] Comment on above: Performed By: #### C BC #### [facility] [address] [place] [address] Dr. Dioni Mayorga IG # 0.02 10e3/ul Normal 0.00-0.03 [facility] Comment on above: Performed By: #### C BC #### [facility] [address] [place] [address] Dr. Dioni Mayorga IG % 0.3 % Normal 0.0-0.5 [facility] Comment on above: Performed By: #### C BC #### [facility] [address] [place] [address] Dr. Dioni Mayorga LYMPH # 2.7 103/ul Normal 1.2-3.8 [facility] Comment on above: Performed By: #### C BC #### [facility] [address] [place] [address] Dr. Dioni Mayorga Lymphocytes/100 WBC (Bld) 38.7 % Normal 20.5-60.0 [facility] Comment on above: Performed By: #### C BC #### [facility] [address] [place] [address] Dr. Dioni Mayorga MANUAL DIFF REQ NO Normal [facility] Comment on above: Performed By: #### C BC #### [facility] [address] [place] [address] Dr. Dioni Mayorga MCH (RBC) [Entitic mass] 28.4 pg Normal 26.7-34.0 [facility] Comment on above: Performed By: #### C BC #### [facility] [address] [place] [address] Dr. Dioni Mayorga MCHC (RBC) [Mass/Vol] 32.1 g/dL Normal 29.9-35.2 [facility] Comment on above: Performed By: #### C BC #### [facility] [address] [place] [address] Dr. Dioni Mayorga MCV (RBC) [Entitic vol] 88.5 fL Normal 81.0-99.0 [facility] Comment on above: Performed By: #### C BC #### [facility] [address] [address] [address] Dioni Mayorga MONO # 0.4 103/ul Normal 0.3-0.8 [facility] Comment on above: Performed By: #### C BC #### [facility] [address] [address] [address] Dioni Mayorga Monocytes/100 WBC (Bld) 6.2 % Normal 1.7-12.0 [facility] Comment on above: Performed By: #### C BC #### [facility] [address] [address] [address] Dioni Mayorga NEUT # 3.7 103/ul Normal 1.4-6.5 [facility] Comment on above: Performed By: #### C BC #### [facility] [address] [place] [address] Dr. Dioni Mayorga Neutrophils/100 WBC (Bld) 53.4 % Normal 43.0-75.0 [facility] Comment on above: Performed By: #### C BC #### [facility] [address] [place] [address] Dr. Dioni Mayorga Platelet mean volume (Bld) [Entitic vol] 10.4 fL Normal 9.5-13.5 [facility] Comment on above: Performed By: #### C BC #### [facility] [address] [place] [address] Dr. Dioni Mayorga PLT 340 103/ul Normal 150-450 [facility] Comment on above: Performed By: #### C BC #### [facility] [address] [place] [address] Dr. Dioni Mayorga RBC 5.11 106/ul Normal 4.20-5.40 [facility] Comment on above: Performed By: #### C BC #### [facility] [address] [place] [address] Dr. Dioni Mayorga WBC 6.9 103/ul Normal 4.0-11.0 [facility] Comment on above: Performed By: #### C BC #### [facility] [address] [address] [address] Dioni Mayorga FREE T3on 08-02-2021 FREE T3 1.49 pg/mlL Critically low 2.18-3.98 [facility] Comment on above: Performed By: #### F T3, LIPID, CMP, T7, TSH #### [facility] [address] [address] [address] Dioni Mayorga FREE THYROXINE INDEX T7on FTI 2.77 Normal 1.30-4.50 [facility] Comment on above: Performed By: #### F T3, LIPID, CMP, T7, TSH #### [facility] [address] [address] [address] Dioni Mayorga T3U 36.0 % Normal 30.0-39.0 [facility] Comment on above: Performed By: #### F T3, LIPID, CMP, T7, TSH #### [facility] [address] [place] [address] Dr. Dioni Mayorga T4 [Mass/Vol] 7.70 ug/dL Normal 4.80-13.90 [facility] Comment on above: Performed By: #### F T3, LIPID, CMP, T7, TSH #### [facility] [address] [address] [address] Dioni Mayorga GLYCOHEMOGLOBIN A1Con 2021 ADA RECOMMENDATION SEE BELOW Normal [facility] Comment on above: Result Comment: ADA RECOMMENDED LIMIT 4.0 - 6.0 ADA THERAPEUTIC TARGET < 7.0 ACTION SUGGESTED > 7.0 Performed By: #### A 1C #### [facility] [address] [place] [address] Dr. Dioni Mayorga Glucose [Mass/Vol] 111 mg/dL Normal [facility] Comment on above: Performed By: #### A 1C #### [facility] [address] [place] [address] Dr. Dioni Mayorga HbA1c (Bld) [Mass fraction] 5.5 % Normal 4.5-6.2 [facility] Comment on above: Performed By: #### A 1C #### [facility] [address] [address] [address] Dioni Mayorga LIPID PROFILEon 08-02-2021 CHOL-HDL RATIO NORM SEE BELOW Normal [facility] Comment on above: Result Comment: 3.3 - 4.4 LOW RISK 4.4 - 7.1 AVERAGE RISK 7.1 - 11.0 MODERATE RISK >11.0 HIGH RISK Performed By: #### F T3, LIPID, CMP, T7, TSH #### [facility] [address] [address] [address] Dioni Mayorga Cholesterol [Mass/Vol] 211 mg/dL Critically high <=200 [facility] Comment on above: Performed By: #### F T3, LIPID, CMP, T7, TSH #### [facility] [address] [address] [address] Dioni Mayorga Cholesterol in HDL [Mass/Vol] 48 mg/dL Normal 40-60 [facility] Comment on above: Performed By: #### F T3, LIPID, CMP, T7, TSH #### [facility] [address] [address] [address] Dioni Mayorga Cholesterol in LDL [Mass/Vol] 148.6 mg/dL Normal [facility] Comment on above: Performed By: #### F T3, LIPID, CMP, T7, TSH #### [facility] [address] [address] [address] Dioni Mayorga Cholesterol.total/Ch olesterol in HDL [Mass ratio] 4.4 {ratio} Normal [facility] Comment on above: Performed By: #### F T3, LIPID, CMP, T7, TSH #### [facility] [address] [address] [address] Dioni Mayorga HDL NORMAL > or = 60 mg/dl - LOW CARDIOVASCULAR RISK <40 mg/dl - HIGH CARDIOVASCULAR RISK Normal [facility] Comment on above: Performed By: #### F T3, LIPID, CMP, T7, TSH #### [facility] [address] [address] [address] Dioni Mayorga LDL CALC NORMAL SEE BELOW Normal [facility] Comment on above: Result Comment: <100 mg/dl OPTIMAL 100 - 129 mg/dl NEAR OR ABOVE OPTIMAL 130 - 159 mg/dl BORDERLINE HIGH 160 - 189 mg/dl HIGH >190 mg/dl VERY HIGH Performed By: #### F T3, LIPID, CMP, T7, TSH #### [facility] [address] [address] [address] Dioni Mayorga Triglyceride [Mass/Vol] 72 mg/dL Normal <=150 [facility] Comment on above: Performed By: #### F T3, LIPID, CMP, T7, TSH #### [facility] [address] [address] [address] Dioni Mayorga VLDL CALC 14.4 mg/dL Normal [facility] Comment on above: Performed By: #### F T3, LIPID, CMP, T7, TSH #### [facility] [address] [address] [address] Dioni Mayorga PROF 14(COMP METB)on 022 Albumin [Mass/Vol] 3.5 g/dL Normal 3.4-5.0 [facility] Comment on above: Performed By: #### F T3, LIPID, CMP, T7, TSH #### [facility] [address] [address] [address] Dioni Mayorga Albumin/Globulin [Mass ratio] 1.0 {ratio} Normal [facility] Comment on above: Performed By: #### F T3, LIPID, CMP, T7, TSH #### [facility] [address] [address] [address] Dioni Mayorga ALP [Catalytic activity/Vol] 62 U/L Normal 46-116 [facility] Comment on above: Performed By: #### F T3, LIPID, CMP, T7, TSH #### [facility] [address] [address] [address] Dioni Mayorga ALT [Catalytic activity/Vol] 20 U/L Normal 14-59 [facility] Comment on above: Performed By: #### F T3, LIPID, CMP, T7, TSH #### [facility] [address] [address] [address] Dioni Mayorga Anion gap [Moles/Vol] 14.0 mmol/L Normal [facility] Comment on above: Performed By: #### F T3, LIPID, CMP, T7, TSH #### [facility] [address] [address] [address] Dioni Mayorga AST [Catalytic activity/Vol] 12 U/L Critically low 15-37 [facility] Comment on above: Performed By: #### F T3, LIPID, CMP, T7, TSH #### [facility] [address] [address] [address] Dioni Mayorga Bilirubin [Mass/Vol] 0.4 mg/dL Normal 0.2-1.0 [facility] Comment on above: Performed By: #### F T3, LIPID, CMP, T7, TSH #### [facility] [address] [address] [address] Dioni Mayorga Calcium [Mass/Vol] 8.7 mg/dL Normal 8.5-10.1 [facility] Comment on above: Performed By: #### F T3, LIPID, CMP, T7, TSH #### [facility] [address] [address] [address] Dioni Mayorga Chloride [Moles/Vol] 105 mmol/L Normal 98-107 [facility] Comment on above: Performed By: #### F T3, LIPID, CMP, T7, TSH #### [facility] [address] [address] [address] Dioni Mayorga CO2 [Moles/Vol] 26.4 mmol/L Normal 21.0-32.0 [facility] Comment on above: Performed By: #### F T3, LIPID, CMP, T7, TSH #### [facility] [address] [address] [address] Dioni Mayorga Creatinine [Mass/Vol] 0.83 mg/dL Normal 0.55-1.02 [facility] Comment on above: Performed By: #### F T3, LIPID, CMP, T7, TSH #### [facility] [address] [place] [address] Dr. Dioni Mayorga EGFR-AF CONGOLESE >60 Normal >=60 [facility] Comment on above: Performed By: #### F T3, LIPID, CMP, T7, TSH #### [facility] [address] [address] [address] Dioni Mayorga EGFR-NON AF CONGOLESE >60 Normal >=60 [facility] Comment on above: Performed By: #### F T3, LIPID, CMP, T7, TSH #### [facility] [address] [address] [address] Dioni Mayorga Globulin (S) [Mass/Vol] 3.5 g/dL Normal [facility] Comment on above: Performed By: #### F T3, LIPID, CMP, T7, TSH #### [facility] [address] [address] [address] Dioni Mayorga Glucose [Mass/Vol] 78 mg/dL Normal 74-106 [facility] Comment on above: Performed By: #### F T3, LIPID, CMP, T7, TSH #### [facility] [address] [place] [address] Dr. Dioni Mayorga Potassium [Moles/Vol] 4.4 mmol/L Normal 3.5-5.1 [facility] Comment on above: Performed By: #### F T3, LIPID, CMP, T7, TSH #### [facility] [address] [address] [address] Dioni Mayorga Protein [Mass/Vol] 7.0 g/dL Normal 6.4-8.2 [facility] Comment on above: Performed By: #### F T3, LIPID, CMP, T7, TSH #### [facility] [address] [address] [address] Dioni Mayorga Sodium [Moles/Vol] 141 mmol/L Normal 136-145 [facility] Comment on above: Performed By: #### F T3, LIPID, CMP, T7, TSH #### [facility] [address] [address] [address] Dioni Mayorga Urea nitrogen [Mass/Vol] 16.0 mg/dL Normal 7.0-18.0 [facility] Comment on above: Performed By: #### F T3, LIPID, CMP, T7, TSH #### [facility] [address] [place] [address] Dr. Dioni Mayorga Urea nitrogen/Creatinine [Mass ratio] 19.3 mg/mg Normal [facility] Comment on above: Performed By: #### F T3, LIPID, CMP, T7, TSH #### [facility] [address] [place], [place] [address] Dr. Dioni Mayorga TSHon 08-02-2021 TSH 1.339 uIU/mL Normal 0.358-3.740 [facility] Comment on above: Performed By: #### F T3, LIPID, CMP, T7, TSH #### [facility] [address] [place], [place] [address] Dr. Dioni Mayorga Vital Signs Date Time Vital Sign Value Performing Clinician Faci lity 09-03-2021 08:51-0400 Blood Pressure Location MICAHEL NUGENT [facility] 09-03-2021 08:51-0400 Diastolic blood pressure 96 mm[Hg] MICHAEL NUGENT [facility] 09-03-2021 08:51-0400 Heart rate 106 /min MICHAEL NUGENT [facility] 09-03-2021 08:51-0400 Systolic blood pressure 138 mm[Hg] MICHAEL NUGENT [facility] Encounters Encounter Date Encounter Type Care Provider Facility Start: 09-13-2023 End: 09-13-2023 ambulatory Harish Cannon MD Facility:[facility] Start: 05-17-2023 End: 05-17-2023 ambulatory Harish Cannon MD Facility:[facility] Start: 04-19-2023 End: 04-19-2023 ambulatory Harish Cannon MD Facility:[facility] Start: 01-11-2023 End: 01-11-2023 ambulatory Harish Cannon MD Facility:[facility] Start: 12-07-2022 End: 12-07-2022 ambulatory Harish Cannon MD Facility:[facility] Start: 11-23-2022 End: 11-23-2022 ambulatory Harish Cannon MD Facility:[facility] Start: 11-02-2022 End: 11-02-2022 ambulatory Harish Cannon MD Facility:[facility] Start: 03-02-2022 End: 03-02-2022 ambulatory SAL[facility]OR GROSS Facility:[facility] Start: 12-15-2021 End: 12-15-2021 ambulatory [facility] GROSS Facility:[facility] Start: 12-09-2021 End: 12-09-2021 ambulatory [facility] GROSS Facility:[facility] Start: 09-17-2021 End: 09-18-[address] MONIKA MATTHEWS Facility:[facility] Start: 09-03-[address] MONIKA MATTHEWS Facility :[facility] Start: 09-03-2021 End: 09-03-2021 Patient encounter procedure MICHAEL NUGENT [facility] Start: 08-05-2021 Encounter for genera l [...] (tozinameran 5y-11y) vaccine MICHAEL NUGENT [facility] Payers Date Payer Category Payer Unknown [id number] 2022 Unknown 2019 Unknown [id number] 1970 Unknown [id number] 2.16.84 [id number] 1970 Unknown [id number] 2.16.84 [id number] 1970 Unknown [id number] 2.16.84 [id number] 1970 Unknown [id number] 2.16.84 [id number] 1970 Unknown [id number] 2.16.84 [id number] 1970 Unknown [id number] 2.16.84 0.1.122497.3.579.2.593 1970 Unknown [id number] 2.16. [id number] 1970 Unknown [id number] 2.16. [id number] 1970 Unknown [id number] 2.16. [id number] 1970 Unknown [id number] 2.16. [id number] 1970 Unknown [id number] 2.16. [id number] 1970 Unknown [id number] 2.16. [id number] 1970 Unknown [id number] 2.16. [id number] Social History Date Type Detail Facility Start: 09-03-2021 Tobacco smoking status Never s moked tobacco (finding) [facility] Tobacco smoking status Never [facility] Sex Assigned At Female [facility] Functional Status Date Assessment Result Facility 09-03-2021 Functional Status N/A [facility] Discharge instructions 09-03-2021 Note Date & [...] (electrical nerve stimulation). For women, using a infertility medical assistant to prevent urine leaks. This [...] right after experiencing incontinence. General instructions Take [id number] and prescription medicines only as told by [...] 03/11/2005 Document Revised: 02/11/2018 Document Reviewed: 05/13/2017 [employer] Patient Education 2020 [employer]. Follow Up Care 08/06/2021 08:10:07 With:pt will call once she decides how she would like to proceed Address:Unknown When: Unknown [facility] Evaluation + Plan note Note Date & Type Note Facility Evaluation + Plan note Future Appointments Appointment Date:09/17/2021 08:30:00 AM Scheduled Provider: Location:[facility] Appointment Type:URO Nurse Visit [facility] Hospital course Narrative Note Date & Type Note Facility Hospital course Narrative No data available for this section [facility] Progress note Note Date & Type Note Facility Progress note No data available for this section [facility] Summary Purpose Family History No Family History Records FoundNo Family History Records FoundNo Family History Records Found Advance Directives No Advanced Directives Records FoundNo Advanced Directives Records FoundNo Advanced Directives Records Found Additional Source Comments Care Team (unrecognized sect ion and content) Personnel Name: Monika Matthews MD Address: [address] [place] [address] INFORMATION SOURCE (unrecogn ized section and content) DATE CREATED AUTHOR 09/18/2021 [facility] DATE CREATED AUTHOR AUTHOR'S ORGANIZ ATION 03/02/2022 [facility] DATE CREATED AUTHOR AUTHOR'S ORGANIZ ATION 09/28/2023 [facility] FOR RECORDS PERTAINING TO PATIENTS WHO [...] BE BASED ON THE PRIMARY CLINICAL RECORDS. [facility]. provides no warranty or guarantee of the accuracy or completeness of information in this document.
[2024-01-04 07:08] VITALS: BP 133/97; PULSE 98; TEMP 36.8; O2SAT 96
[2024-01-04 07:38] VITALS: BP 141/77; PULSE 78; O2SAT 97
[2024-01-04 07:46] VITALS: BP 142/74; PULSE 75; O2SAT 98
[2024-01-04] MEDS: BUPIVACAINE HCL 0.25% PF 25 MG/10 ML VIAL 5 ML INJ (07:51)
[2024-01-04] MEDS: LIDOCAINE HCL 2% 400 MG/20 ML MDV 5 ML INJ (07:52)
[2024-01-04] MEDS: METHYLPREDNISOLONE ACETATE 40 MG/ML VIAL INJ (07:52)
--- NOTE | 2024-01-04 08:40 | W.PM.PROCNOT ---
Date of procedure: 01/04/24 Pre-op diagnosis: Left superior gluteal neuritis Post-op diagnosis: same as pre-op Procedure: Left Superior gluteal nerve Radiofrequency ablation PreOp diagnosis: pain secondary to superior gluteal neuritis Postop diagnosis same Under fluoroscopic guidance Rhizotomy was created using radio frequency ablation at 80?C for 90 seconds 1 to 2 lesions created at each site. Post lesioning injection of 2 mL each of 0.25% Marcaine and 2% lidocaine with Depo-Medrol 40mg. 0.5 to 1 mL injected at each site IV in place no If Intravenous fluids: NS at KVO Anesthesia local 2% lidocaine for Anesthesia Other: local Timeout process compliant After informed consent obtained. Patient brought to the procedure room placed in the prone position skin overlying the area was prepped and draped in a sterile fashion using betadine. 25 gauge needle was used to create a skin wheal over each of the targeted areas utilizing 2% lidocaine. A rhizotomy needle with a 10 mm active tip was inserted over each of the anesthetized areas and directed towards four different areas in the distribution of the superior gluteal nerve, accomplished under fluoroscopic guidance. After encountering the same we had positive sensory stimulation, negative motor stimulation was noted. lesions were then created. Post lesioning, steroid solution was injected needles removed. Patient was transferred to recovery room in stable condition to be discharged home after meeting criteria. Anesthesia: Local Surgeon: Eufemia Varghese Condition: stable
== END 2024-01-04 07:57 | disposition home or self-care (01) ==
LOC: SURGOUT 06:52
PROVIDERS: PCP Family Medicine; Visit Provider Anesthesiology Pain Medicine
DX: G57.82 Other specified mononeuropathies of left lower limb (principal)
CPT/HCPCS: 64640; J0665; J1010

== ENCOUNTER 2024-01-18 06:48 | Day surgery (SDC) | payer BC, SELFPAY ==
--- OUTSIDE RECORDS SUMMARY | 2024-01-18 06:51 | XMS_ITS | CCD ---
Author Organization [facility] CliniSynh Care Team Providers Care Production Maintenance Mechanic Name Role Phone Monika Matthews Primary Care Physician [phone] DR MONIKA MATTHEWS Admitting Unavailable CASSIE, DR [...] Value Interpretation Reference Range Facility Covid-19 PCR ([facility])on 02-15 SARS-CoV-2 (COVID-19) RNA YAMILET+probe Ql (Unsp spec) Not detected Normal NOT DETECTED [facility] Comment on above: [...] for this test is supported by the [place] of Health and Human Service's declaration that [...] used). Performed By: #### C VDTB ####[facility] [address] [address]Dr. Dioni Mayorga INFLUENZA A AND B AGon 03-02 [facility] SEE BELOW Normal [facility] Comment on above: Result Comment: Nega tive for Flu A protein angiten. Infection due to Flu A cannot be ruled out. Flu A angiten in the sample may be below the detection limit of the test. Performed By: #### I NFLUAB #### [facility] [address] [place] [address] Dr. [facility]ioni [facility] BEL[facility] Normal [facility] Comment on above: Result Comment: Nega tive for Flu B protein antigen. Infection due to Flu B cannot be ruled out. Flu B antigen in the sample may be below the detection limit of the test. Performed By: #### I NFLUAB #### [facility] [address] [place] [address] Dr. Dioni Mayorga INFLUENZA A AG Negative Normal NEGATIVE SEE COMMENT [facility] Comment on above: Performed By: #### I NFLUAB #### [facility] [address] [place] [address] Dr. Dioni Mayorga INFLUENZA B AG Negative Normal NEGATIVE SEE COMMENT [facility] Comment on above: Performed By: #### I NFLUAB #### [facility] [address] [place] [address] Dr. Dioni Mayorga ASYMPTOMATIC COVID-19 ANTIGE Non 12-15-2021 EUA Statement SEE BELOW Normal [facility] [...] Performed By: #### C VDAGA #### [facility] [address] [place] [address] Dr. Dioni Mayorga SARS-CoV-2 (COVID-19) RNA YAMILET+probe Ql (Unsp spec) Negative Normal NEGATIVE [facility] Comment on above: Result Comment: Nega tive results are presumptive. They do not preclude infection and should not be used as the sole basis for treatment decisions. Additional confirmatory testing by a molecular method should be considered. Performed By: #### C VDAGA #### [facility] [address] [place] [address] [id number] [address] Dioni Mayorga [facility]on [facility]-16 SARS-CoV-2 (COVID-19) RNA YAMILET+probe Ql (Unsp spec) Detected Critically abnormal NOT DETECTED [facility] Comment on above: Result Comment: This test is not yet approved or cleared by the [place] FDA. When there are no FDA-approved or cleared tests available, and other criteria are met, FDA can make tests available under an emergency access mechanism called an Emergency Use Authorization (EUA). The EUA for this test is supported by the Smoking Pipe Repairer of Health and Human Service's declaration that [...] longer be used). Performed By: #### C [facility] ####[facility] [address] [place], [place] [address]Aq. Dioni Mayorga MG MAMM SCREEN 3D DUSTIN CADon 09-17-2021 MG MAMM SCREEN 3D DUSTIN CAD Patient: BARBARA BACA Exam Date: 09/17/2021 : 1970 Gender:F Ordering : DR MONIKA MATTHEWS . Admission #: [id number] Family : Order #: [id number] CLICK HERE TO VIEW EXAM RADIOLOGY REPORT [...] None Family Cancers None LOCATION: [facility] BREAST COMPOSITION: Scattered areas fibroglandular [...] [facility] Formson 09-04-2021 Forms [id number] #[id number]:127 Normal [facility] Patient Educationon 09-05-19 Patient Education Obstetrics [...] Take ove (more content not included)... Normal [facility] Physician Referralon 022 Physician Referral [id number]#1.00CD:127 Normal [facility] Urology Office/Clinic Noteon 09-04-2021 Urology Office/Clinic [...] had hysterectomy about 10 yrs ago. previous ENTERTAINMENT LAWYER advised her bladder had dropped a bit. [...] E&M of New Patient Moderate 45-59 Min [id number] Follow-up With When Contact Information pt will [...] - Not Given Postpone due to refusal [facility] Comment on above: Result Comment: Elec tronically Signed By: MICHAEL NUGENT PA-C\.br\Date and Time Signed: 09/04/21 09:42 EDT Ambulatory Visit Summaryon 0 09-03-2021 Ambulatory Visit Summary BARBARA BACA :1970 Visit Date:09/03/2021 Ambulatory Visit Instructions Your Diagnosis Stress incontinence Tests Performed Urnls Dip Stick Auto w/o Microscopy POC 24884 Your Care Team Attending Physician - MICHAEL [...] Urnls Dip Stick Auto w/o Microscopy POC 99486 (09/03/2021) Bilirubin Urine Dipstick - Negative Blood Urine Dipstick - Trace-intact Glucose Urine Dipstick - Negative Ketones Urine Dipstick - Negative Leukocytes Urine Dipstick - Negative Nitrite Urine Dipstick - Negative Protein Urine Dipstick - Negative Specific [place] Urine Dipstick - 1.020 Urine Appearance Urine Dipstick - Clear Urine Color Urine Dipstick - Yellow Urobilinogen Urine Dipstick - Normal 0.2-1 EU/dl pH Urine Dipstick - 5 Medications and Immunizations Administered Not Given SARS-CoV-2 mRNA (tozinameran 5y-11y) vac, Postpone due to refusal Allergies No Known Allergies No Known Medication Allergies Normal [facility] CBC AUTO DIFFon 08-02-2021 BASO # 0.0 103/ul Normal 0.0-0.1 [facility] Comment on above: Performed By: #### C BC #### [facility] [address] [place] [address] Dr. Dioni Mayorga Basophils/100 WBC (Bld) 0.4 % Normal 0.2-2.0 [facility] Comment on above: Performed By: #### C BC #### [facility] [address] [place] [address] Dr. Dioni Mayorga EO # 0.1 103/ul Normal 0.0-0.7 [facility] Comment on above: Performed By: #### C BC #### [facility] [address] [place] [address] Dr. Dioni Mayorga Eosinophils/100 WBC (Bld) 1.0 % Normal 0.9-7.0 [facility] Comment on above: Performed By: #### C BC #### [facility] [address] [place] [address] Dr. Dioni Mayorga Erythrocyte distribution width (RBC) [Ratio] 13.4 % Normal 11.0-15.0 [facility] Comment on above: Performed By: #### C BC #### [facility] [address] [place] [address] Dr. Dioni Mayorga Hematocrit (Bld) [Volume fraction] 45.2 % Normal 36.0-48.0 [facility] Comment on above: Performed By: #### C BC #### [facility] [address] [place] [address] Dr. Dioni Mayorga Hemoglobin (Bld) [Mass/Vol] 14.5 g/dL Normal 12.0-16.0 [facility] Comment on above: Performed By: #### C BC #### [facility] [address] [place] [address] Dr. Dioni Mayorga IG # 0.02 10e3/ul Normal 0.00-0.03 [facility] Comment on above: Performed By: #### C BC #### [facility] [address] [place] [address] Dr. Dioni Mayorga IG % 0.3 % Normal 0.0-0.5 [facility] Comment on above: Performed By: #### C BC #### [facility] [address] [place] [address] Dr. Dioni Mayorga LYMPH # 2.7 103/ul Normal 1.2-3.8 [facility] Comment on above: Performed By: #### C BC #### [facility] [address] [place] [address] Dr. Dioni Mayorga Lymphocytes/100 WBC (Bld) 38.7 % Normal 20.5-60.0 [facility] Comment on above: Performed By: #### C BC #### [facility] [address] [place] [address] Dr. Dioni Mayorga MANUAL DIFF REQ NO Normal [facility] Comment on above: Performed By: #### C BC #### [facility] [address] [place] [address] Dr. Dioni Mayorga MCH (RBC) [Entitic mass] 28.4 pg Normal 26.7-34.0 [facility] Comment on above: Performed By: #### C BC #### [facility] [address] [place] [address] Dr. Dioni Mayorga MCHC (RBC) [Mass/Vol] 32.1 g/dL Normal 29.9-35.2 [facility] Comment on above: Performed By: #### C BC #### [facility] [address] [place] [address] Dr. Dioni Mayorga MCV (RBC) [Entitic vol] 88.5 fL Normal 81.0-99.0 [facility] Comment on above: Performed By: #### C BC #### [facility] [address] [address] [address] Dioni Mayorga MONO # 0.4 103/ul Normal 0.3-0.8 [facility] Comment on above: Performed By: #### C BC #### [facility] [address] [address] [address] Dioni Mayorga Monocytes/100 WBC (Bld) 6.2 % Normal 1.7-12.0 [facility] Comment on above: Performed By: #### C BC #### [facility] [address] [address] [address] Dioni Mayorga NEUT # 3.7 103/ul Normal 1.4-6.5 [facility] Comment on above: Performed By: #### C BC #### [facility] [address] [place] [address] Dr. Dioni Mayorga Neutrophils/100 WBC (Bld) 53.4 % Normal 43.0-75.0 [facility] Comment on above: Performed By: #### C BC #### [facility] [address] [place] [address] Dr. Dioni Mayorga Platelet mean volume (Bld) [Entitic vol] 10.4 fL Normal 9.5-13.5 [facility] Comment on above: Performed By: #### C BC #### [facility] [address] [place] [address] Dr. Dioni Mayorga PLT 340 103/ul Normal 150-450 [facility] Comment on above: Performed By: #### C BC #### [facility] [address] [place] [address] Dr. Dioni Mayorga RBC 5.11 106/ul Normal 4.20-5.40 [facility] Comment on above: Performed By: #### C BC #### [facility] [address] [place] [address] Dr. Dioni Mayorga WBC 6.9 103/ul Normal 4.0-11.0 [facility] Comment on above: Performed By: #### C BC #### [facility] [address] [address] [address] Dioni Mayorga FREE T3on 08-02-2021 FREE T3 1.49 pg/mlL Critically low 2.18-3.98 [facility] Comment on above: Performed By: #### F T3, LIPID, CMP, T7, TSH #### [facility] [address] [address] [address] Dioni Mayorga FREE THYROXINE INDEX T7on FTI 2.77 Normal 1.30-4.50 [facility] Comment on above: Performed By: #### F T3, LIPID, CMP, T7, TSH #### [facility] [address] [address] [address] Dioni Mayorga T3U 36.0 % Normal 30.0-39.0 [facility] Comment on above: Performed By: #### F T3, LIPID, CMP, T7, TSH #### [facility] [address] [place] [address] Dr. Dioni Mayorga T4 [Mass/Vol] 7.70 ug/dL Normal 4.80-13.90 [facility] Comment on above: Performed By: #### F T3, LIPID, CMP, T7, TSH #### [facility] [address] [address] [address] Dioni Mayorga GLYCOHEMOGLOBIN A1Con 2021 ADA RECOMMENDATION SEE BELOW Normal [facility] Comment on above: Result Comment: ADA RECOMMENDED LIMIT 4.0 - 6.0 ADA THERAPEUTIC TARGET < 7.0 ACTION SUGGESTED > 7.0 Performed By: #### A 1C #### [facility] [address] [place] [address] Dr. Dioni Mayorga Glucose [Mass/Vol] 111 mg/dL Normal [facility] Comment on above: Performed By: #### A 1C #### [facility] [address] [place] [address] Dr. Dioni Mayorga HbA1c (Bld) [Mass fraction] 5.5 % Normal 4.5-6.2 [facility] Comment on above: Performed By: #### A 1C #### [facility] [address] [address] [address] Dioni Mayorga LIPID PROFILEon 08-02-2021 CHOL-HDL RATIO NORM SEE BELOW Normal [facility] Comment on above: Result Comment: 3.3 - 4.4 LOW RISK 4.4 - 7.1 AVERAGE RISK 7.1 - 11.0 MODERATE RISK >11.0 HIGH RISK Performed By: #### F T3, LIPID, CMP, T7, TSH #### [facility] [address] [address] [address] Dioni Mayorga Cholesterol [Mass/Vol] 211 mg/dL Critically high <=200 [facility] Comment on above: Performed By: #### F T3, LIPID, CMP, T7, TSH #### [facility] [address] [address] [address] Dioni Mayorga Cholesterol in HDL [Mass/Vol] 48 mg/dL Normal 40-60 [facility] Comment on above: Performed By: #### F T3, LIPID, CMP, T7, TSH #### [facility] [address] [address] [address] Dioni Mayorga Cholesterol in LDL [Mass/Vol] 148.6 mg/dL Normal [facility] Comment on above: Performed By: #### F T3, LIPID, CMP, T7, TSH #### [facility] [address] [address] [address] Dioni Mayorga Cholesterol.total/Ch olesterol in HDL [Mass ratio] 4.4 {ratio} Normal [facility] Comment on above: Performed By: #### F T3, LIPID, CMP, T7, TSH #### [facility] [address] [address] [address] Dioni Mayorga HDL NORMAL > or = 60 mg/dl - LOW CARDIOVASCULAR RISK <40 mg/dl - HIGH CARDIOVASCULAR RISK Normal [facility] Comment on above: Performed By: #### F T3, LIPID, CMP, T7, TSH #### [facility] [address] [address] [address] Dioni Mayorga LDL CALC NORMAL SEE BELOW Normal [facility] Comment on above: Result Comment: <100 mg/dl OPTIMAL 100 - 129 mg/dl NEAR OR ABOVE OPTIMAL 130 - 159 mg/dl BORDERLINE HIGH 160 - 189 mg/dl HIGH >190 mg/dl VERY HIGH Performed By: #### F T3, LIPID, CMP, T7, TSH #### [facility] [address] [address] [address] Dioni Mayorga Triglyceride [Mass/Vol] 72 mg/dL Normal <=150 [facility] Comment on above: Performed By: #### F T3, LIPID, CMP, T7, TSH #### [facility] [address] [address] [address] Dioni Mayorga VLDL CALC 14.4 mg/dL Normal [facility] Comment on above: Performed By: #### F T3, LIPID, CMP, T7, TSH #### [facility] [address] [address] [address] Dioni Mayorga PROF 14(COMP METB)on 022 Albumin [Mass/Vol] 3.5 g/dL Normal 3.4-5.0 [facility] Comment on above: Performed By: #### F T3, LIPID, CMP, T7, TSH #### [facility] [address] [address] [address] Dioni Mayorga Albumin/Globulin [Mass ratio] 1.0 {ratio} Normal [facility] Comment on above: Performed By: #### F T3, LIPID, CMP, T7, TSH #### [facility] [address] [address] [address] Dioni Mayorga ALP [Catalytic activity/Vol] 62 U/L Normal 46-116 [facility] Comment on above: Performed By: #### F T3, LIPID, CMP, T7, TSH #### [facility] [address] [address] [address] Dioni Mayorga ALT [Catalytic activity/Vol] 20 U/L Normal 14-59 [facility] Comment on above: Performed By: #### F T3, LIPID, CMP, T7, TSH #### [facility] [address] [address] [address] Dioni Mayorga Anion gap [Moles/Vol] 14.0 mmol/L Normal [facility] Comment on above: Performed By: #### F T3, LIPID, CMP, T7, TSH #### [facility] [address] [address] [address] Dioni Mayorga AST [Catalytic activity/Vol] 12 U/L Critically low 15-37 [facility] Comment on above: Performed By: #### F T3, LIPID, CMP, T7, TSH #### [facility] [address] [address] [address] Dioni Mayorga Bilirubin [Mass/Vol] 0.4 mg/dL Normal 0.2-1.0 [facility] Comment on above: Performed By: #### F T3, LIPID, CMP, T7, TSH #### [facility] [address] [address] [address] Dioni Mayorga Calcium [Mass/Vol] 8.7 mg/dL Normal 8.5-10.1 [facility] Comment on above: Performed By: #### F T3, LIPID, CMP, T7, TSH #### [facility] [address] [address] [address] Dioni Mayorga Chloride [Moles/Vol] 105 mmol/L Normal 98-107 [facility] Comment on above: Performed By: #### F T3, LIPID, CMP, T7, TSH #### [facility] [address] [address] [address] Dioni Mayorga CO2 [Moles/Vol] 26.4 mmol/L Normal 21.0-32.0 [facility] Comment on above: Performed By: #### F T3, LIPID, CMP, T7, TSH #### [facility] [address] [address] [address] iDoni Mayorga Creatinine [Mass/Vol] 0.83 mg/dL Normal 0.55-1.02 [facility] Comment on above: Performed By: #### F T3, LIPID, CMP, T7, TSH #### [facility] [address] [place] [address] Dr. Dioni Mayorga EGFR-AF PUERTO RICAN >60 Normal >=60 [facility] Comment on above: Performed By: #### F T3, LIPID, CMP, T7, TSH #### [facility] [address] [address] [address] Dioni Mayorga EGFR-NON AF PUERTO RICAN >60 Normal >=60 [facility] Comment on above: Performed By: #### F T3, LIPID, CMP, T7, TSH #### [facility] [address] [address] [address] Dioni Mayorga Globulin (S) [Mass/Vol] 3.5 g/dL Normal [facility] Comment on above: Performed By: #### F T3, LIPID, CMP, T7, TSH #### [facility] [address] [address] [address] Dioni Mayorga Glucose [Mass/Vol] 78 mg/dL Normal 74-106 [facility] Comment on above: Performed By: #### F T3, LIPID, CMP, T7, TSH #### [facility] [address] [place] [address] Dr. Dioni Mayorga Potassium [Moles/Vol] 4.4 mmol/L Normal 3.5-5.1 [facility] Comment on above: Performed By: #### F T3, LIPID, CMP, T7, TSH #### [facility] [address] [address] [address] Dioni Mayorga Protein [Mass/Vol] 7.0 g/dL Normal 6.4-8.2 [facility] Comment on above: Performed By: #### F T3, LIPID, CMP, T7, TSH #### [facility] [address] [address] [address] Dioni Mayorga Sodium [Moles/Vol] 141 mmol/L Normal 136-145 [facility] Comment on above: Performed By: #### F T3, LIPID, CMP, T7, TSH #### [facility] [address] [address] [address] Dioni Mayorga Urea nitrogen [Mass/Vol] 16.0 mg/dL Normal 7.0-18.0 [facility] Comment on above: Performed By: #### F T3, LIPID, CMP, T7, TSH #### [facility] [address] [place] [address] Dr. Dioni Mayorga Urea nitrogen/Creatinine [Mass ratio] 19.3 mg/mg Normal [facility] Comment on above: Performed By: #### F T3, LIPID, CMP, T7, TSH #### [facility] [address] [place], [place] [address] Dr. Dioni Mayorga TSHon 08-02-2021 TSH 1.339 uIU/mL Normal 0.358-3.740 [facility] Comment on above: Performed By: #### F T3, LIPID, CMP, T7, TSH #### [facility] [address] [place], [place] [address] Dr. Dioni Mayorga Vital Signs Date Time Vital Sign Value Performing Clinician Faci lity 09-03-2021 08:51-0400 Blood Pressure Location MICHAEL NUGENT [facility] 09-03-2021 08:51-0400 Diastolic blood pressure 96 mm[Hg] MICHAEL NUGENT [facility] 09-03-2021 08:51-0400 Heart rate 106 /min MICHAEL NUGENT [facility] 09-03-2021 08:51-0400 Systolic blood pressure 138 mm[Hg] MICHAEL NUGENT [facility] Encounters Encounter Date Encounter Type Care Provider Facility Start: 09-13-2023 End: 09-13-2023 ambulatory Harish Cannon MD Facility:[facility] Start: 05-17-2023 End: 05-17-2023 ambulatory Harish Cannon MD Facility:[facility] Start: 04-19-2023 End: 04-19-2023 ambulatory Harish Cannon MD Facility:[facility] Start: 01-11-2023 End: 01-11-2023 ambulatory Harish Cannon MD Facility:[facility] Start: 12-07-2022 End: 12-07-2022 ambulatory Harish Cannon MD Facility:[facility] Start: 11-23-2022 End: 11-23-2022 ambulatory Harish Cannon MD Facility:[facility] Start: 11-02-2022 End: 11-02-2022 ambulatory Harish Cannon MD Facility:[facility] [place] Start: 03-02-2022 End: 03-02-2022 ambulatory SALVADOR GROSS Facility:[facility] Start: 12-15-2021 End: 12-15-2021 ambulatory SALVADOR GROSS Facility:[facility] Start: 12-09-2021 End: 12-09-2021 ambulatory SALVADOR GROSS Facility:[facility] Start: 09-17-2021 End: 09-18-[address] MONIKA MATTHEWS Facility:[facility] Start: 09-03-[address] MONIKA MATTHEWS Facility :[facility] Start: 09-03-2021 End: 09-03-2021 Patient encounter procedure MICHAEL NUGENT [facility] Start: 08-05-2021 Encounter for genera l [...] vaccine MICHAEL NUGENT [facility] Payers Date Payer Category Payer Unknown [id number] 2022 Unknown 2019 Unknown [id number] 1970 Unknown [id number] 2.16.84 [id number] 1970 Unknown [id number] 2.16.84 [id number] 1970 Unknown [id number] 2.16.84 [id number] 1970 Unknown [id number] 2.16.84 [id number] 1970 Unknown [id number] 2.16.84 [id number] 1970 Unknown [id number] 2.16.84 0.1.041224.3.579.2.593 1970 Unknown [id number] 2.16. 840.1.520098.3.579.2.196 1970 Unknown [id number] 2.16. 840.1.503064.3.579.2.196 1970 Unknown [id number] 2.16. 840.1.458064.3.579.2.196 1970 Unknown [id number] 2.16. 840.1.828525.3.579.2.196 1970 Unknown [id number] 2.16. 840.1.000728.3.579.2.196 1970 Unknown [id number] 2.16. 840.1.085466.3.579.2.196 1970 Unknown [id number] 2.16. 840.1.184742.3.579.2.196 Social History Date Type Detail Facility Start: 09-03-2021 Tobacco smoking status Never s moked tobacco (finding) [facility] Tobacco smoking status Never [facility] [place] Sex Assigned At Female [facility] [place] Functional Status Date Assessment Result Facility 09-03-2021 Functional Status N/A [facility] Discharge instructions 09-03-2021 Note Date & [...] nerve stimulation). For women, using a medical registrar to prevent urine leaks. This is a [...] right after experiencing incontinence. General instructions Take [id number] and prescription medicines only as told by [...] 03/11/2005 Document Revised: 02/11/2018 Document Reviewed: 05/13/2017 [employer] Patient Education 2020 [employer] Amina. Follow Up Care 08/06/2021 08:10:07 With:pt will call once she decides how she would like to proceed Address:Unknown When: Unknown [facility] Evaluation + Plan note Note Date & Type Note Facility Evaluation + Plan note Future Appointments Appointment Date:09/17/2021 08:30:00 AM Scheduled Provider: Location:[facility] Appointment Type:URO Nurse Visit [facility] Hospital course Narrative Note Date & Type Note Facility Hospital course Narrative No data available for this section [facility] Progress note Note Date & Type Note Facility Progress note No data available for this section [facility] Summary Purpose Family History No Family History Records FoundNo Family History Records FoundNo Family History Records Found Advance Directives No Advanced Directives Records FoundNo Advanced Directives Records FoundNo Advanced Directives Records Found Additional Source Comments Care Team (unrecognized sect ion and content) Personnel Name: Monika Matthews MD Address: [address] [place] [address] INFORMATION SOURCE (unrecogn ized section and content) DATE CREATED AUTHOR 09/18/2021 [facility] DATE CREATED AUTHOR AUTHOR'S ORGANIZ ATION 03/02/2022 [facility] DATE CREATED AUTHOR AUTHOR'S ORGANIZ ATION 09/28/2023 [facility] FOR RECORDS PERTAINING TO PATIENTS WHO [...] BE BASED ON THE PRIMARY CLINICAL RECORDS. [facility] [facility]. provides no warranty or guarantee of the accuracy or completeness of information in this document.
[2024-01-18 06:58] VITALS: BP 125/84; PULSE 84; TEMP 36.6; O2SAT 98
[2024-01-18 07:30] VITALS: BP 140/73; PULSE 78; O2SAT 96
[2024-01-18 07:31] VITALS: BP 134/71; PULSE 74; O2SAT 97
[2024-01-18] MEDS: BUPIVACAINE HCL 0.25% PF 25 MG/10 ML VIAL 4 ML INJ (07:45)
[2024-01-18] MEDS: LIDOCAINE HCL 2% 400 MG/20 ML MDV 9 ML INJ (07:45)
[2024-01-18] MEDS: METHYLPREDNISOLONE ACETATE 40 MG/ML VIAL INJ (07:45)
--- NOTE | 2024-01-18 08:51 | W.PM.PROCNOT ---
Date of procedure: 01/18/24 Pre-op diagnosis: Superior gluteal neuritis Post-op diagnosis: same as pre-op Procedure: Right Superior gluteal nerve Radiofrequency ablation PreOp diagnosis: pain secondary to superior gluteal neuritis Postop diagnosis same Under fluoroscopic guidance Rhizotomy was created using radio frequency ablation at 80?C for 90 seconds 1 to 2 lesions created at each site. Post lesioning injection of 2 mL each of 0.25% Marcaine and 2% lidocaine with Depo-Medrol 40mg. 0.5 to 1 mL injected at each site IV in place no If Intravenous fluids: NS at KVO Anesthesia local 2% lidocaine for Anesthesia Other: local Timeout process compliant After informed consent obtained. Patient brought to the procedure room placed in the prone position skin overlying the area was prepped and draped in a sterile fashion using betadine. 25 gauge needle was used to create a skin wheal over each of the targeted areas utilizing 2% lidocaine. A rhizotomy needle with a 10 mm active tip was inserted over each of the anesthetized areas and directed towards four different areas in the distribution of the superior gluteal nerve, accomplished under fluoroscopic guidance. After encountering the same we had positive sensory stimulation, negative motor stimulation was noted. lesions were then created. Post lesioning, steroid solution was injected needles removed. Patient was transferred to recovery room in stable condition to be discharged home after meeting criteria. Anesthesia: Local Surgeon: Eufemia Varghese Condition: stable
== END 2024-01-18 07:50 | disposition home or self-care (01) ==
LOC: SURGOUT 06:49
PROVIDERS: PCP Family Medicine; Visit Provider Anesthesiology Pain Medicine
DX: G57.81 Other specified mononeuropathies of right lower limb (principal)
CPT/HCPCS: 64640; J0665; J1010

== ENCOUNTER 2024-02-24 08:11 | Outpatient (OUT) | payer BC, SELFPAY ==
--- NOTE | 2024-02-24 08:30 | P.CN_ITS ---
Consult Note: HPI Data of Consult Patient: known to practice within the last 3 years Consult date: 04/19/23 Requesting Physician: Therese Montelongo NP Primary Care Provider: Romero Dykes MD Consult Narrative Reason for consult: chronic low back pain Narrative: 52yof who presents for assessment of chronic low back pain and bilateral hip pain. Patient previously evaluated by Dr Cannon and MRI imaging was consistent with lumbar radiculopathy/lumbar stenosis with NC. Patient continues to engage in HEP greater than 6 weeks. Patient has found benefit to baclofen 10 HS, gabapentin 100mg BID PRN and diclofenac 100mg BID PRN without side effects. Pain today 4/10 increasing to 6/10, aching dull. Pain increased with standing, walking, lying down, rolling over, sitting, bending, decreased with sleep and heat. Recently underwent left and right superior gluteal RFA with 50% improvement ongoing. cc:: CC: Therese Montelongo NP Review of Systems ROS Status of ROS 10 or more systems reviewed and unremark able except as noted in history and below Musculoskeletal Reports: back pain PFSH PFSH Medical History Low back ache ?M54.50 - Low back pain, unspecified (ICD-10) Obesity ?E66.9 - Obesity, unspecified (ICD-10) Surgical History H/O tooth extraction ?K08.409 - Partial loss of teeth, unspecified cause, unspecified class (ICD- 10) H/O: hysterectomy ?Z90.710 - Acquired absence of both cervix and uterus (ICD-10) Social History Smoking status: Never smoker Meds Home Medications and Allergies Home Medications ?Medication ?Instructions ?Recorded ?Confirmed ?Type loratadine-pseudoephedrine ER 10 1 tab PO DAILY 11/02/22 01/18/24 History mg-240 mg tablet,extended [id number] (Claritin-D 24 Hour) baclofen 10 mg tablet 10 mg PO DAILY PRN muscle spasm 11/17/23 01/18/24 History celecoxib 200 mg capsule (Celebrex) 200 mg PO BID 12/14/23 01/18/24 History acetaminophen 325 mg tablet 325 mg PO Q6H PRN pain 12/21/23 01/18/24 History (Tylenol) gabapentin 100 mg capsule mg 01/04/24 History Allergies Allergy/AdvReac Type Severity Reaction Status Date / Time No Known Drug Allergies Allergy Verified 01/18/24 07:02 Exam Constitutional Documenting provider has reviewed patient's vital signs: yes Common normals: no apparent distress, oriented x3, healthy appearing, alert and well nourished General appearance: cooperative Nutritional appearance: obese HENMT Common normals: normocephalic, hearing grossly normal bilaterally and moist oral mucous membranes Head and scalp: normocephalic Eye Common normals: PERRL Pupil: PERRL Neck & C-Spine Common normals: full ROM General: normal visual inspection Chest Common normals: inspection of chest normal Respiratory Common normals: normal respiratory effort, no retractions and no use of accessory muscles Back & Pelvis Common normals: no CVA tenderness Lumbar spine/lower back: normal to inspection, lumbar ROM normal, ROM limited, paraspinal muscle tenderness, paraspinal muscle spasm and straight leg raise negative bilaterally Other: strength 5/5 BLE sensation intact positive facet loading Extremity Common normals: normal to inspection and full ROM Neuro Common normals: oriented x3, CN's II-XII intact bilaterally, moves all extremities, no focal motor deficits, no sensory deficits noted and deep tendon reflexes 2+ bilaterally Sensorium/orientation: alert Motor exam: strength 5/5 throughout and no movement abnormalities noted Psych Common normals: mental status grossly normal, thought process normal, coope rative, affect normal, speech normal and activity/motor behavior normal Speech: normal speech Thought process: normal thought process Results Additional Findings Additional findings: If on a controlled substance or opioids, I have checked an [place] report on this patient and there are no aberrancies noted in the prescribing history.??If on a controlled substance or opioid a drug screen was completed and reviewed within the last year, and if there has not been a drug screen completed we ordered one today to monitor higher risk, state monitored pain medication use. As part of providing excellent, safe, comprehensive care, the following was completed at our patient's visit: 1. A medication reconciliation and review to ensure accurate knowledge of current/active medications, including asking our patients to inform us about any [id number] medications or herbal remedies/nutritional supplements/alternative remedies. 2. A review to specifically ensure our patients have had annual screening for screening for depression, screening for tobacco use, and screening for unhealthy alcohol use. For concerning screenings had a discussion with the patient, provided patient education, and recommended follow-up with primary care provider when appropriate. If patient noted with a risk of falling, they received education on strength, gait, and balance training to prevent future risk of falling. Assessment and Plan Assessment and Plan (1) Unspecified mononeuropathy of left lower limb: (2) Unspecified mononeuropathy of right lower limb: (3) Myalgia, other site: (4) Lumbar degenerative disc disease: (5) Lumbar stenosis without neurogenic claudication: (6) Lumbar spondylosis: Plan left then right superior gluteal nerve RFA providing 50% improvement defer repeat bilateral L4-5 l5-S1 facet RFA per pt request continue current medications continue HEP as tolerated continue heat and PRN TENS f/u 3 months, sooner if needed
== END 2024-02-24 08:12 | disposition home or self-care (01) ==
LOC: PM 08:11
PROVIDERS: PCP Family Medicine; Visit Provider Nurse Practitioner
DX: G57.93 Unspecified mononeuropathy of bilateral lower limbs (principal); M79.18 Myalgia, other site; M51.369 Other intervertebral disc degeneration, lumbar region without mention of lumbar back pain or lower extremity pain; M48.062 Spinal stenosis, lumbar region with neurogenic claudication; M47.816 Spondylosis without myelopathy or radiculopathy, lumbar region
CPT/HCPCS: G0463

== ENCOUNTER 2024-04-13 07:47 | Outpatient (OUT) | payer BC, SELFPAY ==
--- OUTSIDE RECORDS SUMMARY | 2024-04-13 08:05 | XMS_ITS | CCD ---
Author Organization [facility] CliniSynm Care Team Providers Care Administrative Office Specialist Name Role Phone Monika Matthews Primary Care [...] Value Interpretation Reference Range Facility Covid-19 PCR ([facility])on 02-15 SARS-CoV-2 (COVID-19) RNA YAMILET+probe Ql (Unsp spec) Not detected Normal NOT DETECTED [facility] Comment on above: Result Comment: When [...] for this test is supported by the [place] of Health and Human Service's declaration that [...] be used). Performed By: #### C VDTB ####[facility] [id number] [place] [address]Dr. Dioni Mayorga INFLUENZA A AND B AGon 03-02 [facility] SEE BELOW Normal [facility] [place] Comment on above: Result Comment: Nega tive for Flu A protein angiten. Infection due to Flu A cannot be ruled out. Flu A angiten in the sample may be below the detection limit of the test. Performed By: #### I NFLUAB #### [facility] [address] [place] [address] Dr. [facility] Normal [facility] Comment on above: Result Comment: Nega tive for Flu B protein antigen. Infection due to Flu B cannot be ruled out. Flu B antigen in the sample may be below the detection limit of the test. Performed By: #### I NFLUAB #### [facility] [address] [place] [address] Dr. Dioni Mayorga INFLUENZA A AG Negative Normal NEGATIVE SEE COMMENT [facility] [place] Comment on above: Performed By: #### I NFLUAB #### [facility] [address] [place] [address] Dr. Dioni Mayorga INFLUENZA B AG Negative Normal NEGATIVE SEE COMMENT [facility] Comment on above: Performed By: #### I NFLUAB #### [facility] [address] [place] [address] Dr. Dioni Mayorga ASYMPTOMATIC COVID-19 ANTIGE Non [...] sooner. Performed By: #### C VDAGA #### [facility] [address] [place] [address] Dr. Dioni Maoyrga SARS-CoV-2 (COVID-19) RNA YAMILET+probe Ql (Unsp spec) Negative Normal NEGATIVE [facility] Comment on above: Result Comment: Nega tive results are presumptive. They do not preclude infection and should not be used as the sole basis for treatment decisions. Additional confirmatory testing by a molecular method should be considered. Performed By: #### C VDAGA #### [facility] [address] [place] [address] [address] [address] Dioni Mayorga [facility]16 SARS-CoV-2 (COVID-19) RNA YAMILET+probe Ql (Unsp spec) Detected Critically abnormal NOT DETECTED [facility] Comment on above: Result Comment: This test is not yet approved or cleared by the [place] FDA. When there are no FDA-approved or cleared tests available, and other criteria are met, FDA can make tests available under an emergency access mechanism called an Emergency Use Authorization (EUA). The EUA for this test is supported by the [employer] of Health and Human Service's declaration that [...] longer be used). Performed By: #### C [facility] ####[facility] [id number] [place], [place] [address]Tc. Dioni Mayorga MG MAMM SCREEN 3D DUSTIN CADon 09-17-2021 MG MAMM SCREEN 3D DUSTIN CAD Patient: BARBARA BACA Exam Date: 09/17/2021 : 1970 Gender:F Ordering : DR MONIKA MATTHEWS . Admission #: [id number] Family : Order #: [id number] CLICK HERE TO VIEW EXAM RADIOLOGY REPORT PROCEDURE: MAMMOGRAM SCREENING 3D BILATERAL CAD COMPARISON: MG MAMM SCREEN 3D DUSTIN CAD, 05/08/2020. MAMMO POST BIOPSY RIGHT, 01/04/2018. INDICATIONS: Screening mammography Calculator Name NCI Breast Cancer Risk Assessment Tool 5 Year Breast Cancer Risk 1.00% Lifetime Breast Cancer Risk 9.60% Personal Breast Cancer No Personal Ovarian Cancer No Treatments None Family Cancers None LOCATION: [facility] BREAST COMPOSITION: Scattered areas fibroglandular density. [...] Rodarte M.D. on 09/17/2021 at 13:13 Normal [facility] [place] Formson 09-04-2021 Forms [id number] #1.00CD:127 Normal [facility] Patient Educationon 09-05-19 Patient Education Obstetrics [...] (more content not included)... Normal [facility] Physician Referralon 022 Physician Referral [id number]#1.00CD:127 Normal [facility] Urology Office/Clinic Noteon 09-04-2021 Urology Office/Clinic [...] had hysterectomy about 10 yrs ago. 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 [...] E&M of New Patient Moderate 45-59 Min 20348 Follow-up With When Contact Information pt will [...] - Not Given Postpone due to refusal [facility] Comment on above: Result Comment: Elec tronically Signed By: MICHAEL NUGENT PA-C\.br\Date and Time Signed: 09/04/21 09:42 EDT Ambulatory Visit Summaryon 0 09-03-2021 Ambulatory Visit Summary BARBARA BACA :1970 Visit Date:09/03/2021 Ambulatory Visit Instructions Your Diagnosis Stress incontinence Tests Performed Urnls Dip Stick Auto w/o Microscopy POC 00865 Your Care Team Attending Physician - MICHAEL [...] Urnls Dip Stick Auto w/o Microscopy POC 39674 (09/03/2021) Bilirubin Urine Dipstick - Negative Blood Urine Dipstick - Trace-intact Glucose Urine Dipstick - Negative Ketones Urine Dipstick - Negative Leukocytes Urine Dipstick - Negative Nitrite Urine Dipstick - Negative Protein Urine Dipstick - Negative Specific [place] Urine Dipstick - 1.020 Urine Appearance Urine Dipstick - Clear Urine Color Urine Dipstick - Yellow Urobilinogen Urine Dipstick - Normal 0.2-1 EU/dl pH Urine Dipstick - 5 Medications and Immunizations Administered Not Given SARS-CoV-2 mRNA (tozinameran 5y-11y) vac, Postpone due to refusal Allergies No Known Allergies No Known Medication Allergies Normal [facility] CBC AUTO DIFFon 08-02-2021 BASO # 0.0 103/ul Normal 0.0-0.1 [facility] [place] Comment on above: Performed By: #### C BC #### [facility] [address] [place] [address] Dr. Dioni Mayorga Basophils/100 WBC (Bld) 0.4 % Normal 0.2-2.0 [facility] [place] Comment on above: Performed By: #### C BC #### [facility] [address] [place] [address] Dr. Dioni Mayorga EO # 0.1 103/ul Normal 0.0-0.7 [facility] [place] Comment on above: Performed By: #### C BC #### [facility] [address] [place] [address] Dr. Dioni Mayorga Eosinophils/100 WBC (Bld) 1.0 % Normal 0.9-7.0 [facility] [place] Comment on above: Performed By: #### C BC #### [facility] [address] [place] [address] Dr. Dioni Mayorga Erythrocyte distribution width (RBC) [Ratio] 13.4 % Normal 11.0-15.0 [facility] [place] Comment on above: Performed By: #### C BC #### [facility] [address] [place] [address] Dr. Dioni Mayorga Hematocrit (Bld) [Volume fraction] 45.2 % Normal 36.0-48.0 [facility] [place] Comment on above: Performed By: #### C BC #### [facility] [address] [place] [address] Dr. Dioni Mayorga Hemoglobin (Bld) [Mass/Vol] 14.5 g/dL Normal 12.0-16.0 [facility] [place] Comment on above: Performed By: #### C BC #### [facility] [address] [place] [address] Dr. Dioni Mayorga IG # 0.02 10e3/ul Normal 0.00-0.03 [facility] [place] Comment on above: Performed By: #### C BC #### [facility] [address] [place] [address] Dr. Dioni Mayorga IG % 0.3 % Normal 0.0-0.5 [facility] [place] Comment on above: Performed By: #### C BC #### [facility] [address] [place] [address] Dr. Dioni Mayorga LYMPH # 2.7 103/ul Normal 1.2-3.8 [facility] [place] Comment on above: Performed By: #### C BC #### [facility] [address] [place] [address] Dr. Dioni Mayorga Lymphocytes/100 WBC (Bld) 38.7 % Normal 20.5-60.0 [facility] [place] Comment on above: Performed By: #### C BC #### [facility] [address] [place] [address] Dr. Dioni Mayorga MANUAL DIFF REQ NO Normal [facility] Comment on above: Performed By: #### C BC #### [facility] [address] [place] [address] Dr. Dioni Mayorga MCH (RBC) [Entitic mass] 28.4 pg Normal 26.7-34.0 [facility] [place] Comment on above: Performed By: #### C BC #### [facility] [address] [place] [address] Dr. Dioni Mayorga MCHC (RBC) [Mass/Vol] 32.1 g/dL Normal 29.9-35.2 [facility] [place] Comment on above: Performed By: #### C BC #### [facility] [address] [place] [address] Dr. Dioni Mayorga MCV (RBC) [Entitic vol] 88.5 fL Normal 81.0-99.0 [facility] Comment on above: Performed By: #### C BC #### [facility] [address] [address] [address] Dioni Mayorga MONO # 0.4 103/ul Normal 0.3-0.8 [facility] Comment on above: Performed By: #### C BC #### [facility] [address] [address] [address] Dioni Mayorga Monocytes/100 WBC (Bld) 6.2 % Normal 1.7-12.0 [facility] [place] Comment on above: Performed By: #### C BC #### [facility] [address] [address] [address] Dioni Mayorga NEUT # 3.7 103/ul Normal 1.4-6.5 [facility] [place] Comment on above: Performed By: #### C BC #### [facility] [address] [place] [address] Dr. Dioni Mayorga Neutrophils/100 WBC (Bld) 53.4 % Normal 43.0-75.0 [facility] [place] Comment on above: Performed By: #### C BC #### [facility] [address] [place] [address] Dr. Dioni Mayorga Platelet mean volume (Bld) [Entitic vol] 10.4 fL Normal 9.5-13.5 [facility] [place] Comment on above: Performed By: #### C BC #### [facility] [address] [place] [address] Dr. Dioni Mayorga PLT 340 103/ul Normal 150-450 [facility] Comment on above: Performed By: #### C BC #### [facility] [address] [place] [address] Dr. Dioni Mayorga RBC 5.11 106/ul Normal 4.20-5.40 [facility] Comment on above: Performed By: #### C BC #### [facility] [address] [place] [address] Dr. Dioni Mayorga WBC 6.9 103/ul Normal 4.0-11.0 [facility] Comment on above: Performed By: #### C BC #### [facility] [address] [address] [address] Dioni Mayorga FREE T3on 08-02-2021 FREE T3 1.49 pg/mlL Critically low 2.18-3.98 [facility] Comment on above: Performed By: #### F T3, LIPID, CMP, T7, TSH #### [facility] [address] [address] [address] Dioni Mayorga FREE THYROXINE INDEX T7on FTI 2.77 Normal 1.30-4.50 [facility] [place] Comment on above: Performed By: #### F T3, LIPID, CMP, T7, TSH #### [facility] [address] [address] [address] Dioni Mayorga T3U 36.0 % Normal 30.0-39.0 [facility] [place] Comment on above: Performed By: #### F T3, LIPID, CMP, T7, TSH #### [facility] [address] [place] [address] Dr. Dioni Mayorga T4 [Mass/Vol] 7.70 ug/dL Normal 4.80-13.90 [facility] Comment on above: Performed By: #### F T3, LIPID, CMP, T7, TSH #### [facility] [address] [address] [address] Dioni Mayorga GLYCOHEMOGLOBIN A1Con 2021 ADA RECOMMENDATION SEE BELOW Normal [facility] Comment on above: Result Comment: ADA RECOMMENDED LIMIT 4.0 - 6.0 ADA THERAPEUTIC TARGET < 7.0 ACTION SUGGESTED > 7.0 Performed By: #### A 1C #### [facility] [address] [place] [address] Dr. Dioni Mayorga Glucose [Mass/Vol] 111 mg/dL Normal [facility] Comment on above: Performed By: #### A 1C #### [facility] [address] [place] [address] Dr. Dioni Mayorga HbA1c (Bld) [Mass fraction] 5.5 % Normal 4.5-6.2 [facility] [place] Comment on above: Performed By: #### A 1C #### [facility] [address] [address] [address] Dioni Mayorga LIPID PROFILEon 08-02-2021 CHOL-HDL RATIO NORM SEE BELOW Normal [facility] Comment on above: Result Comment: 3.3 - 4.4 LOW RISK 4.4 - 7.1 AVERAGE RISK 7.1 - 11.0 MODERATE RISK >11.0 HIGH RISK Performed By: #### F T3, LIPID, CMP, T7, TSH #### [facility] [address] [address] [address] Dioni Mayorga Cholesterol [Mass/Vol] 211 mg/dL Critically high <=200 [facility] [place] Comment on above: Performed By: #### F T3, LIPID, CMP, T7, TSH #### [facility] [address] [address] [address] Dioni Mayorga Cholesterol in HDL [Mass/Vol] 48 mg/dL Normal 40-60 [facility] [place] Comment on above: Performed By: #### F T3, LIPID, CMP, T7, TSH #### [facility] [address] [address] [address] Dioni Mayorga Cholesterol in LDL [Mass/Vol] 148.6 mg/dL Normal [facility] [place] Comment on above: Performed By: #### F T3, LIPID, CMP, T7, TSH #### [facility] [address] [address] [address] Dioni Mayorga Cholesterol.total/Ch olesterol in HDL [Mass ratio] 4.4 {ratio} Normal [facility] [place] Comment on above: Performed By: #### F T3, LIPID, CMP, T7, TSH #### [facility] [address] [address] [address] Dioni Mayorga HDL NORMAL > or = 60 mg/dl - LOW CARDIOVASCULAR RISK <40 mg/dl - HIGH CARDIOVASCULAR RISK Normal [facility] [place] Comment on above: Performed By: #### F T3, LIPID, CMP, T7, TSH #### [facility] [address] [address] [address] Dioni Mayorga LDL CALC NORMAL SEE BELOW Normal [facility] Comment on above: Result Comment: <100 mg/dl OPTIMAL 100 - 129 mg/dl NEAR OR ABOVE OPTIMAL 130 - 159 mg/dl BORDERLINE HIGH 160 - 189 mg/dl HIGH >190 mg/dl VERY HIGH Performed By: #### F T3, LIPID, CMP, T7, TSH #### [facility] [address] [address] [address] Dioni Mayorga Triglyceride [Mass/Vol] 72 mg/dL Normal <=150 [facility] [place] Comment on above: Performed By: #### F T3, LIPID, CMP, T7, TSH #### [facility] [address] [address] [address] Dioni Mayorga VLDL CALC 14.4 mg/dL Normal [facility] [place] Comment on above: Performed By: #### F T3, LIPID, CMP, T7, TSH #### [facility] [address] [address] [address] Dioni Mayorga PROF 14(COMP METB)on 022 Albumin [Mass/Vol] 3.5 g/dL Normal 3.4-5.0 [facility] Comment on above: Performed By: #### F T3, LIPID, CMP, T7, TSH #### [facility] [address] [address] [address] Dioni Mayorga Albumin/Globulin [Mass ratio] 1.0 {ratio} Normal [facility] [place] Comment on above: Performed By: #### F T3, LIPID, CMP, T7, TSH #### [facility] [address] [address] [address] Dioni Mayorga ALP [Catalytic activity/Vol] 62 U/L Normal 46-116 [facility] [place] Comment on above: Performed By: #### F T3, LIPID, CMP, T7, TSH #### [facility] [address] [address] [address] Dioni Mayorga ALT [Catalytic activity/Vol] 20 U/L Normal 14-59 [facility] [place] Comment on above: Performed By: #### F T3, LIPID, CMP, T7, TSH #### [facility] [address] [address] [address] Dioni Mayorga Anion gap [Moles/Vol] 14.0 mmol/L Normal [facility] [place] Comment on above: Performed By: #### F T3, LIPID, CMP, T7, TSH #### [facility] [address] [address] [address] Dioni Mayorga AST [Catalytic activity/Vol] 12 U/L Critically low 15-37 [facility] [place] Comment on above: Performed By: #### F T3, LIPID, CMP, T7, TSH #### [facility] [address] [address] [address] Dioni Mayorga Bilirubin [Mass/Vol] 0.4 mg/dL Normal 0.2-1.0 [facility] [place] Comment on above: Performed By: #### F T3, LIPID, CMP, T7, TSH #### [facility] [address] [address] [address] Dioni Mayorga Calcium [Mass/Vol] 8.7 mg/dL Normal 8.5-10.1 [facility] Comment on above: Performed By: #### F T3, LIPID, CMP, T7, TSH #### [facility] [address] [address] [address] Dioni Mayorga Chloride [Moles/Vol] 105 mmol/L Normal 98-107 [facility] Comment on above: Performed By: #### F T3, LIPID, CMP, T7, TSH #### [facility] [address] [address] [address] Dioni Mayorga CO2 [Moles/Vol] 26.4 mmol/L Normal 21.0-32.0 [facility] Comment on above: Performed By: #### F T3, LIPID, CMP, T7, TSH #### [facility] [address] [address] [address] Dioni Mayorga Creatinine [Mass/Vol] 0.83 mg/dL Normal 0.55-1.02 [facility] Comment on above: Performed By: #### F T3, LIPID, CMP, T7, TSH #### [facility] [address] [place] [address] Dr. Dioni Mayorga EGFR-AF GREEK >60 Normal >=60 [facility] Comment on above: Performed By: #### F T3, LIPID, CMP, T7, TSH #### [facility] [address] [address] [address] Dioni Mayorga EGFR-NON AF GREEK >60 Normal >=60 [facility] Comment on above: Performed By: #### F T3, LIPID, CMP, T7, TSH #### [facility] [address] [address] [address] Dioni Mayorga Globulin (S) [Mass/Vol] 3.5 g/dL Normal [facility] [place] Comment on above: Performed By: #### F T3, LIPID, CMP, T7, TSH #### [facility] [address] [address] [address] Dioni Mayorga Glucose [Mass/Vol] 78 mg/dL Normal 74-106 [facility] Comment on above: Performed By: #### F T3, LIPID, CMP, T7, TSH #### [facility] [address] [place] [address] Dr. Dioni Mayorga Potassium [Moles/Vol] 4.4 mmol/L Normal 3.5-5.1 [facility] [place] Comment on above: Performed By: #### F T3, LIPID, CMP, T7, TSH #### [facility] [address] [address] [address] Dioni Mayorga Protein [Mass/Vol] 7.0 g/dL Normal 6.4-8.2 [facility] Comment on above: Performed By: #### F T3, LIPID, CMP, T7, TSH #### [facility] [address] [address] [address] Dioni Mayorga Sodium [Moles/Vol] 141 mmol/L Normal 136-145 [facility] Comment on above: Performed By: #### F T3, LIPID, CMP, T7, TSH #### [facility] [address] [address] [address] Dioni Mayorga Urea nitrogen [Mass/Vol] 16.0 mg/dL Normal 7.0-18.0 [facility] [place] Comment on above: Performed By: #### F T3, LIPID, CMP, T7, TSH #### [facility] [address] [place] [address] Dr. Dioni Mayorga Urea nitrogen/Creatinine [Mass ratio] 19.3 mg/mg Normal [facility] [place] Comment on above: Performed By: #### F T3, LIPID, CMP, T7, TSH #### [facility] [address] [place], [place] [address] Dr. Dioni Mayorga TSHon 08-02-2021 TSH 1.339 uIU/mL Normal 0.358-3.740 [facility] Comment on above: Performed By: #### F T3, LIPID, CMP, T7, TSH #### [facility] [address] [place], [place] [address] Dr. Dioni Mayorga Vital Signs Date Time Vital Sign Value Performing Clinician Faci lity 09-03-2021 08:51-0400 Blood Pressure Location MICHAEL NUGENT [facility] 09-03-2021 08:51-0400 Diastolic blood pressure 96 mm[Hg] MICHAEL NUGENT [facility] 09-03-2021 08:51-0400 Heart rate 106 /min MICHAEL NUGENT [facility] 09-03-2021 08:51-0400 Systolic blood pressure 138 mm[Hg] MICHAEL NUGENT [facility] Encounters Encounter Date Encounter Type Care Provider Facility Start: 09-13-2023 End: 09-13-2023 ambulatory Harish Cannon MD Facility:[facility] Start: 05-17-2023 End: 05-17-2023 ambulatory Harish Canonn MD Facility:[facility] Start: 04-19-2023 End: 04-19-2023 ambulatory Harish Cannon MD Facility:[facility] Start: 01-11-2023 End: 01-11-2023 ambulatory Harihs Cannon MD Facility:[facility] Start: 12-07-2022 End: 12-07-2022 ambulatory Harish Cannon MD Facility:[facility] Start: 11-23-2022 End: 11-23-2022 ambulatory Harish Cannon MD Facility:[facility] Start: 11-02-2022 End: 11-02-2022 ambulatory Harish Cannon MD Facility:[facility] Start: 03-02-2022 End: 03-02-2022 ambulatory SALVADOR GROSS Facility:[facility] Start: 12-15-2021 End: 12-15-2021 ambulatory SALVADOR GROSS Facility:[facility] Start: 12-09-2021 End: 12-09-2021 ambulatory SALVADOR GROSS Facility:[facility] Start: 09-17-2021 End: 09-18-[address] MONIKA MATTHEWS Facility:[facility] Start: 09-03-[address] MONIKA MATTHEWS Facility :[facility] Start: 09-03-2021 End: 09-03-2021 Patient encounter procedure MICHAEL NUGENT [facility] Start: 08-05-2021 Encounter for genera l adult medical examination without abnormal findings DR MONIKA MATTHEWS [facility] [place] Start: 08-02-2021 End: 08-03-[address] MONIKA MATTHEWS Facility:[facility] Start: 08-02-2021 End: 08-03-2021 Encounter for general adult medical examination without abnormal findings DR MONIKA MATTHEWS Facility:[facility] Procedures Date Procedure Procedure Detail Performing Clinician Hysterectomy MICHAEL NUGENT Immunizations Immunization Date Immunization Notes Care Provider Fa roly NEGATED: Highlighted row has not occurred!09-03-2021 SARS-CoV-2 mRNA (tozinameran 5y-11y) vaccine MICHAEL NUGENT [facility] Payers Date Payer Category Payer Unknown [id number] 2022 Unknown 2019 Unknown [id number] 1970 Unknown [id number] 2.16.84 [id number] 1970 Unknown [id number] 2.16.84 [id number] 1970 Unknown [id number] 2.16.84 0.1.624104.3.579.2.593 1970 Unknown [id number] 2.16.84 0.1.126988.3.579.2.593 1970 Unknown [id number] 2.16.84 0.1.673629.3.579.2.593 1970 Unknown [id number] 2.16.84 0.1.916611.3.579.2.593 1970 Unknown [id number] 2.16. 840.1.378434.3.579.2.196 1970 Unknown [id number] 2.16. 840.1.368643.3.579.2.196 1970 Unknown [id number] 2.16. 840.1.139205.3.579.2.196 1970 Unknown [id number] 2.16. 840.1.485146.3.579.2.196 1970 Unknown [id number] 2.16. 840.1.298917.3.579.2.196 1970 Unknown [id number] 2.16. 840.1.961860.3.579.2.196 1970 Unknown [id number] 2.16. 840.1.907801.3.579.2.196 Social History Date Type Detail Facility Start: 09-03-2021 Tobacco smoking status Never s moked tobacco (finding) [facility] Tobacco smoking status Never [facility] Sex Assigned At Female [facility] Neil Functional Status Date Assessment Result Facility 09-03-2021 Functional Status N/A [facility] Discharge instructions 09-03-2021 Note Date & [...] nerve stimulation). For women, using a medical research scientist to prevent urine leaks. This is a [...] right after experiencing incontinence. General instructions Take mnco-rzz-uojxbcl and prescription medicines only as told by [...] 03/11/2005 Document Revised: 02/11/2018 Document Reviewed: 05/13/2017 NOTIK Patient Education 2020 [employer]. Follow Up Care 08/06/2021 08:10:07 With:pt will call once she decides how she would like to proceed Address:Unknown When: Unknown [facility] Evaluation + Plan note Note Date & Type Note Facility Evaluation + Plan note Future Appointments Appointment Date:09/17/2021 08:30:00 AM Scheduled Provider: Location:[facility] Appointment Type:URO Nurse Visit [facility] Hospital course Narrative Note Date & Type Note Facility Hospital course Narrative No data available for this section [facility] Progress note Note Date & Type Note Facility Progress note No data available for this section [facility] Summary Purpose Family History No Family History Records FoundNo Family History Records FoundNo Family History Records Found Advance Directives No Advanced Directives Records FoundNo Advanced Directives Records FoundNo Advanced Directives Records Found Additional Source Comments Care Team (unrecognized sect ion and content) Personnel Name: Monika Matthews MD Address: [address] [place] [address] INFORMATION SOURCE (unrecogn ized section and content) DATE CREATED AUTHOR 09/18/2021 [facility] DATE CREATED AUTHOR AUTHOR'S ORGANIZ ATION 03/02/2022 [facility] DATE CREATED AUTHOR AUTHOR'S ORGANIZ ATION 09/28/2023 [facility] FOR RECORDS PERTAINING TO PATIENTS WHO [...] BE BASED ON THE PRIMARY CLINICAL RECORDS. [facility] [employer] [facility]. provides no warranty or guarantee of the accuracy or completeness of information in this document.
--- NOTE | 2024-04-13 08:20 | P.CN_ITS ---
Consult Note: HPI Data of Consult Patient: known to practice within the last 3 years Requesting Physician: Therese Montelongo NP Primary Care Provider: Romero Dykes MD Consult Narrative Reason for consult: chronic low back pain Narrative: 53yof who presents for assessment of chronic low back pain. Patient continues to engage in HEP greater than 6 weeks. Patient has found benefit to baclofen 10 HS, gabapentin 100mg BID PRN and diclofenac 100mg BID PRN without side effects. Pain today 6/10 increasing to 8/10, aching dull. Pain increased with standing, walking, lying down, rolling over, sitting, bending, decreased with sleep and heat. pt noticing increased back pain over the last few weeks. cc:: CC: Therese Montelongo NP Review of Systems ROS Status of ROS 10 or more systems reviewed and unremark able except as noted in history and below Musculoskeletal Reports: back pain PFSH PFSH Medical History Low back ache ?M54.50 - Low back pain, unspecified (ICD-10) Obesity ?E66.9 - Obesity, unspecified (ICD-10) Surgical History H/O tooth extraction ?K08.409 - Partial loss of teeth, unspecified cause, unspecified class (ICD- 10) H/O: hysterectomy ?Z90.710 - Acquired absence of both cervix and uterus (ICD-10) Social History Smoking status: Never smoker Meds Home Medications and Allergies Home Medications ?Medication ?Instructions ?Recorded ?Confirmed ?Type loratadine-pseudoephedrine ER 10 1 tab PO DAILY 11/02/22 01/18/24 History mg-240 mg tablet,extended [id number] (Claritin-D 24 Hour) baclofen 10 mg tablet 10 mg PO DAILY PRN muscle spasm 11/17/23 01/18/24 History celecoxib 200 mg capsule (Celebrex) 200 mg PO BID 12/14/23 01/18/24 History acetaminophen 325 mg tablet 325 mg PO Q6H PRN pain 12/21/23 01/18/24 History (Tylenol) gabapentin 100 mg capsule mg 01/04/24 History gabapentin 100 mg capsule See Rx Instructions .Route 03/29/24 Rx .COMPLEX #60 caps Allergies Allergy/AdvReac Type Severity Reaction Status Date / Time No Known Drug Allergies Allergy Verified 01/18/24 07:02 Exam Constitutional Documenting provider has reviewed patient's vital signs: yes Common normals: no apparent distress, oriented x3, healthy appearing, alert and well nourished General appearance: cooperative Nutritional appearance: obese HENMT Common normals: normocephalic, hearing grossly normal bilaterally and moist oral mucous membranes Head and scalp: normocephalic Eye Common normals: PERRL Pupil: PERRL Neck & C-Spine Common normals: full ROM General: normal visual inspection Chest Common normals: inspection of chest normal Respiratory Common normals: normal respiratory effort, no retractions and no use of accessory muscles Back & Pelvis Common normals: no CVA tenderness Lumbar spine/lower back: normal to inspection, lumbar ROM normal, ROM limited, pain with ROM, lumbar spinal tenderness Lumbar spinal tenderness location: L4 and L5 and straight leg raise negative bilaterally Sacroiliac joints: SI joints normal Other: strength 5/5 BLE sensation intact positive facet loading L4-S1 Extremity Common normals: normal to inspection and full ROM Neuro Common normals: oriented x3, CN's II-XII intact bilaterally, moves all extremities, no focal motor deficits, no sensory deficits noted and deep tendon reflexes 2+ bilaterally Sensorium/orientation: alert Motor exam: strength 5/5 throughout and no movement abnormalities noted Psych Common normals: mental status grossly normal, thought process normal, cooperative, affect normal, speech normal and activity/motor behavior normal Speech: normal speech Thought process: normal thought process Results Additional Findings Additional findings: If on a controlled substance or opioids, I have checked an [place]AR[place] report on this patient and there are no aberrancies noted in the prescribing history.??If on a controlled substance or opioid a drug screen was completed and reviewed within the last year, and if there has not been a drug screen completed we ordered one today to monitor higher risk, state monitored pain medication use. As part of providing excellent, safe, comprehensive care, the following was completed at our patient's visit: 1. A medication reconciliation and review to ensure accurate knowledge of current/active medications, including asking our patients to inform us about any zogo-ngk-[id number] medications or herbal remedies/nutritional supple ments/alternative remedies. 2. A review to specifically ensure our patients have had annual screening for screening for depression, screening for tobacco use, and screening for unhealthy alcohol use. For concerning screenings had a discussion with the patient, provided patient education, and recommended follow-up with primary care provider when appropriate. If patient noted with a risk of falling, they received education on strength, gait, and balance training to prevent future risk of falling. Assessment and Plan Assessment and Plan (1) Lumbar spondylosis: (2) Myalgia, other site: (3) Lumbar degenerative disc disease: Plan Pt has her daughters baby shower this weekend and does not know how shes going to be able to get through it with this severe pain. As discussed today her pain appears to be facet mediated and she would benefit from repeat bilateral l4-5 L5-S1 facet RFAs. However at this time we will DC celebrex, start medrol dose pack for acute on chronic pain, increase gabapentin 100-200mg BID as tolerated. upon completion of medrol dose pack start meloxicam 7.5mg BID. risks vs benefits reviewed. f/u 2 weeks in office, will likely order repeat bilateral L4-5 L5-S1 facet RFA
== END 2024-04-13 07:48 | disposition home or self-care (01) ==
LOC: PM 07:48
PROVIDERS: PCP Family Medicine; Visit Provider Nurse Practitioner
DX: M47.816 Spondylosis without myelopathy or radiculopathy, lumbar region (principal); M79.18 Myalgia, other site; M51.369 Other intervertebral disc degeneration, lumbar region without mention of lumbar back pain or lower extremity pain
CPT/HCPCS: G0463

== ENCOUNTER 2024-04-27 07:43 | Outpatient (OUT) | payer BC, SELFPAY ==
--- OUTSIDE RECORDS SUMMARY | 2024-04-27 07:48 | XMS_ITS | CCD ---
Author Organization [facility] CliniSywi Care Team Providers Care Reworker Name Role Phone Monika Matthews Primary Care Physician [phone] DR MONIKA MATTHEWS Admitting Unavailable CASSIE, DR [...] Interpretation Reference Range Facility Covid-19 PCR ([facility])on 02-15 SARS-CoV-2 (COVID-19) RNA YAMILET+probe Ql (Unsp spec) Not detected Normal NOT DETECTED [facility] Comment on above: Result Comment: When [...] for this test is supported by the [place] of Health and Human Service's declaration that [...] Performed By: #### C VDTB ####[facility] [address] [address]Dr. Dioni Mayorga INFLUENZA A AND B AGon 03-02 [facility] SEE BELOW Normal [facility] Comment on above: Result Comment: Nega tive for Flu A protein angiten. Infection due to Flu A cannot be ruled out. Flu A angiten in the sample may be below the detection limit of the test. Performed By: #### I NFLUAB #### [facility] [address] [place] [address] Dr. Dioni Mayorga [facility] SEE BELOW Normal [facility] Comment on above: Result Comment: Nega tive for Flu B protein antigen. Infection due to Flu B cannot be ruled out. Flu B antigen in the sample may be below the detection limit of the test. Performed By: #### I NFLUAB #### [facility] [address] [place] [address] Dr. Dioni Mayorga INFLUENZA A AG Negative Normal NEGATIVE SEE COMMENT [facility] Comment on above: Performed By: #### I NFLUAB #### [facility] [address] [place] [address] Dr. Dioni Mayorga INFLUENZA B AG Negative Normal NEGATIVE SEE COMMENT [facility] Comment on above: Performed By: #### I NFLUAB #### [facility] [address] [place] [address] Dr. Dioni Mayorga ASYMPTOMATIC COVID-19 ANTIGE Non 12-15-2021 EUA Statement SEE BELOW Normal [facility] Comment on above: Result Comment: This [...] By: #### C VDAGA #### [facility] [address] [place] [address] Dr. Dioni Mayorga SARS-CoV-2 (COVID-19) RNA YAMILET+probe Ql (Unsp spec) Negative Normal NEGATIVE [facility] Comment on above: Result Comment: Nega tive results are presumptive. They do not preclude infection and should not be used as the sole basis for treatment decisions. Additional confirmatory testing by a molecular method should be considered. Performed By: #### C VDAGA #### [facility] [address] [place] [address] [address] Dioni Mayorga [facility]on [facility]-16 SARS-CoV-2 (COVID-19) RNA YAMILET+probe Ql (Unsp spec) Detected Critically abnormal NOT DETECTED [facility] Comment on above: Result Comment: This test is not yet approved or cleared by the [place] FDA. When there are no FDA-approved or cleared tests available, and other criteria are met, FDA can make tests available under an emergency access mechanism called an Emergency Use Authorization (EUA). The EUA for this test is supported by the [place] of Health and Human Service's declaration that [...] longer be used). Performed By: #### C [facility] ####[facility] [address] [place], [place] [address]Bz. Dioni Mayorga MG MAMM SCREEN 3D DUSTIN CADon 09-17-2021 MG MAMM SCREEN 3D DUSTIN CAD Patient: BARBARA BACA Exam Date: 09/17/2021 : 1970 Gender:F Ordering : DR MONIKA MATTHEWS . Admission #: [id number] Family : Order #: [id number] CLICK HERE TO VIEW EXAM RADIOLOGY REPORT [...] Family Cancers None LOCATION: [facility] BREAST COMPOSITION: Scattered areas fibroglandular density. [...] Rodarte M.D. on 09/17/2021 at 13:13 Normal [facility] Formson 09-04-2021 Forms [id number] #[id number]:127 Normal [facility] Patient Educationon 09-05-19 Patient Education Obstetrics and [...] (more content not included)... Normal [facility] Physician Referralon 022 Physician Referral [id number]#1.00CD:127 Normal [facility] Urology Office/Clinic Noteon 09-04-2021 Urology Office/Clinic Note [...] had hysterectomy about 10 yrs ago. previous MEDIA MARKETING MANAGER advised her bladder had dropped a [...] E&M of New Patient Moderate 45-59 Min 66066 Follow-up With When Contact Information pt will [...] - Not Given Postpone due to refusal [facility] Comment on above: Result Comment: Elec tronically Signed By: MICHAEL NUGENT PA-C\.br\Date and Time Signed: 09/04/21 09:42 EDT Ambulatory Visit Summaryon 0 09-03-2021 Ambulatory Visit Summary BARBARA BACA :1970 Visit Date:09/03/2021 Ambulatory Visit Instructions Your Diagnosis Stress incontinence Tests Performed Urnls Dip Stick Auto w/o Microscopy POC 20427 Your Care Team Attending Physician - MICHAEL [...] Urnls Dip Stick Auto w/o Microscopy POC 81067 (09/03/2021) Bilirubin Urine Dipstick - Negative Blood Urine Dipstick - Trace-intact Glucose Urine Dipstick - Negative Ketones Urine Dipstick - Negative Leukocytes Urine Dipstick - Negative Nitrite Urine Dipstick - Negative Protein Urine Dipstick - Negative Specific [place] Urine Dipstick - 1.020 Urine Appearance Urine Dipstick - Clear Urine Color Urine Dipstick - Yellow Urobilinogen Urine Dipstick - Normal 0.2-1 EU/dl pH Urine Dipstick - 5 Medications and Immunizations Administered Not Given SARS-CoV-2 mRNA (tozinameran 5y-11y) vac, Postpone due to refusal Allergies No Known Allergies No Known Medication Allergies Normal [facility] CBC AUTO DIFFon 08-02-2021 BASO # 0.0 103/ul Normal 0.0-0.1 [facility] Comment on above: Performed By: #### C BC #### [facility] [address] [place] [address] Dr. Dioni Mayorga Basophils/100 WBC (Bld) 0.4 % Normal 0.2-2.0 [facility] Comment on above: Performed By: #### C BC #### [facility] [address] [place] [address] Dr. Dioni Mayorga EO # 0.1 103/ul Normal 0.0-0.7 [facility] Comment on above: Performed By: #### C BC #### [facility] [address] [place] [address] Dr. Dioni Mayorga Eosinophils/100 WBC (Bld) 1.0 % Normal 0.9-7.0 [facility] Comment on above: Performed By: #### C BC #### [facility] [address] [place] [address] Dr. Dioni Mayorga Erythrocyte distribution width (RBC) [Ratio] 13.4 % Normal 11.0-15.0 [facility] Comment on above: Performed By: #### C BC #### [facility] [address] [place] [address] Dr. Dioni Mayorga Hematocrit (Bld) [Volume fraction] 45.2 % Normal 36.0-48.0 [facility] Comment on above: Performed By: #### C BC #### [facility] [address] [place] [address] Dr. Dioni Mayorga Hemoglobin (Bld) [Mass/Vol] 14.5 g/dL Normal 12.0-16.0 [facility] Comment on above: Performed By: #### C BC #### [facility] [address] [place] [address] Dr. Dioni Mayorga IG # 0.02 10e3/ul Normal 0.00-0.03 [facility] Comment on above: Performed By: #### C BC #### [facility] [address] [place] [address] Dr. Dioni Mayorga IG % 0.3 % Normal 0.0-0.5 [facility] Comment on above: Performed By: #### C BC #### [facility] [address] [place] [address] Dr. Dioni Mayorga LYMPH # 2.7 103/ul Normal 1.2-3.8 [facility] Comment on above: Performed By: #### C BC #### [facility] [address] [place] [address] Dr. Dioni Mayorga Lymphocytes/100 WBC (Bld) 38.7 % Normal 20.5-60.0 [facility] Comment on above: Performed By: #### C BC #### [facility] [address] [place] [address] Dr. Dioni Mayorga MANUAL DIFF REQ NO Normal [facility] Comment on above: Performed By: #### C BC #### [facility] [address] [place] [address] Dr. Dioni Mayorga MCH (RBC) [Entitic mass] 28.4 pg Normal 26.7-34.0 [facility] Comment on above: Performed By: #### C BC #### [facility] [address] [place] [address] Dr. Dioni Mayorga MCHC (RBC) [Mass/Vol] 32.1 g/dL Normal 29.9-35.2 [facility] Comment on above: Performed By: #### C BC #### [facility] [address] [place] [address] Dr. Dioni Mayorga MCV (RBC) [Entitic vol] 88.5 fL Normal 81.0-99.0 [facility] Comment on above: Performed By: #### C BC #### [facility] [address] [address] [address] Dioni Mayorga MONO # 0.4 103/ul Normal 0.3-0.8 [facility] Comment on above: Performed By: #### C BC #### [facility] [address] [address] [address] Dioni Mayorga Monocytes/100 WBC (Bld) 6.2 % Normal 1.7-12.0 [facility] Comment on above: Performed By: #### C BC #### [facility] [address] [address] [address] Dioni Mayorga NEUT # 3.7 103/ul Normal 1.4-6.5 [facility] Comment on above: Performed By: #### C BC #### [facility] [address] [place] [address] Dr. Dioni Mayorga Neutrophils/100 WBC (Bld) 53.4 % Normal 43.0-75.0 [facility] Comment on above: Performed By: #### C BC #### [facility] [address] [place] [address] Dr. Dioni Mayorga Platelet mean volume (Bld) [Entitic vol] 10.4 fL Normal 9.5-13.5 [facility] Comment on above: Performed By: #### C BC #### [facility] [address] [place] [address] Dr. Dioni Mayorga PLT 340 103/ul Normal 150-450 [facility] Comment on above: Performed By: #### C BC #### [facility] [address] [place] [address] Dr. Dioni Mayorga RBC 5.11 106/ul Normal 4.20-5.40 [facility] Comment on above: Performed By: #### C BC #### [facility] [address] [place] [address] Dr. Dioni Mayorga WBC 6.9 103/ul Normal 4.0-11.0 [facility] Comment on above: Performed By: #### C BC #### [facility] [address] [address] [address] Dioni Mayorga FREE T3on 08-02-2021 FREE T3 1.49 pg/mlL Critically low 2.18-3.98 [facility] Comment on above: Performed By: #### F T3, LIPID, CMP, T7, TSH #### [facility] [address] [address] [address] Dioni Mayorga FREE THYROXINE INDEX T7on FTI 2.77 Normal 1.30-4.50 [facility] Comment on above: Performed By: #### F T3, LIPID, CMP, T7, TSH #### [facility] [address] [address] [address] Dioni Mayorga T3U 36.0 % Normal 30.0-39.0 [facility] Comment on above: Performed By: #### F T3, LIPID, CMP, T7, TSH #### [facility] [address] [place] [address] Dr. Dioni Mayorga T4 [Mass/Vol] 7.70 ug/dL Normal 4.80-13.90 [facility] Comment on above: Performed By: #### F T3, LIPID, CMP, T7, TSH #### [facility] [address] [address] [address] Dioni Mayorga GLYCOHEMOGLOBIN A1Con 2021 ADA RECOMMENDATION SEE BELOW Normal [facility] Comment on above: Result Comment: ADA RECOMMENDED LIMIT 4.0 - 6.0 ADA THERAPEUTIC TARGET < 7.0 ACTION SUGGESTED > 7.0 Performed By: #### A 1C #### [facility] [address] [place] [address] Dr. Dioni Mayorga Glucose [Mass/Vol] 111 mg/dL Normal [facility] Comment on above: Performed By: #### A 1C #### [facility] [address] [place] [address] Dr. Dioni Mayorga HbA1c (Bld) [Mass fraction] 5.5 % Normal 4.5-6.2 [facility] Comment on above: Performed By: #### A 1C #### [facility] [address] [address] [address] Dioni Mayorga LIPID PROFILEon 08-02-2021 CHOL-HDL RATIO NORM SEE BELOW Normal [facility] Comment on above: Result Comment: 3.3 - 4.4 LOW RISK 4.4 - 7.1 AVERAGE RISK 7.1 - 11.0 MODERATE RISK >11.0 HIGH RISK Performed By: #### F T3, LIPID, CMP, T7, TSH #### [facility] [address] [address] [address] Dioni Mayorga Cholesterol [Mass/Vol] 211 mg/dL Critically high <=200 [facility] Comment on above: Performed By: #### F T3, LIPID, CMP, T7, TSH #### [facility] [address] [address] [address] Dioni Mayorga Cholesterol in HDL [Mass/Vol] 48 mg/dL Normal 40-60 [facility] Comment on above: Performed By: #### F T3, LIPID, CMP, T7, TSH #### [facility] [address] [address] [address] Dioni Mayorga Cholesterol in LDL [Mass/Vol] 148.6 mg/dL Normal [facility] Comment on above: Performed By: #### F T3, LIPID, CMP, T7, TSH #### [facility] [address] [address] [address] Dioni Mayorga Cholesterol.total/Ch olesterol in HDL [Mass ratio] 4.4 {ratio} Normal [facility] Comment on above: Performed By: #### F T3, LIPID, CMP, T7, TSH #### [facility] [address] [address] [address] Dioni Mayorga HDL NORMAL > or = 60 mg/dl - LOW CARDIOVASCULAR RISK <40 mg/dl - HIGH CARDIOVASCULAR RISK Normal [facility] Comment on above: Performed By: #### F T3, LIPID, CMP, T7, TSH #### [facility] [address] [address] [address] Dioni Mayorga LDL CALC NORMAL SEE BELOW Normal [facility] Comment on above: Result Comment: <100 mg/dl OPTIMAL 100 - 129 mg/dl NEAR OR ABOVE OPTIMAL 130 - 159 mg/dl BORDERLINE HIGH 160 - 189 mg/dl HIGH >190 mg/dl VERY HIGH Performed By: #### F T3, LIPID, CMP, T7, TSH #### [facility] [address] [address] [address] Dioni Mayorga Triglyceride [Mass/Vol] 72 mg/dL Normal <=150 [facility] Comment on above: Performed By: #### F T3, LIPID, CMP, T7, TSH #### [facility] [address] [address] [address] Dioni Mayorga VLDL CALC 14.4 mg/dL Normal [facility] Comment on above: Performed By: #### F T3, LIPID, CMP, T7, TSH #### [facility] [address] [address] [address] Dioni Mayorga PROF 14(COMP METB)on 022 Albumin [Mass/Vol] 3.5 g/dL Normal 3.4-5.0 [facility] Comment on above: Performed By: #### F T3, LIPID, CMP, T7, TSH #### [facility] [address] [address] [address] Dioni Mayorga Albumin/Globulin [Mass ratio] 1.0 {ratio} Normal [facility] Comment on above: Performed By: #### F T3, LIPID, CMP, T7, TSH #### [facility] [address] [address] [address] Dioni Mayorga ALP [Catalytic activity/Vol] 62 U/L Normal 46-116 [facility] Comment on above: Performed By: #### F T3, LIPID, CMP, T7, TSH #### [facility] [address] [address] [address] Dioni Mayorga ALT [Catalytic activity/Vol] 20 U/L Normal 14-59 [facility] Comment on above: Performed By: #### F T3, LIPID, CMP, T7, TSH #### [facility] [address] [address] [address] Dioni Mayorga Anion gap [Moles/Vol] 14.0 mmol/L Normal [facility] Comment on above: Performed By: #### F T3, LIPID, CMP, T7, TSH #### [facility] [address] [address] [address] Dioni Mayorga AST [Catalytic activity/Vol] 12 U/L Critically low 15-37 [facility] Comment on above: Performed By: #### F T3, LIPID, CMP, T7, TSH #### [facility] [address] [address] [address] Dioni Mayorga Bilirubin [Mass/Vol] 0.4 mg/dL Normal 0.2-1.0 [facility] Comment on above: Performed By: #### F T3, LIPID, CMP, T7, TSH #### [facility] [address] [address] [address] Dioni Mayorga Calcium [Mass/Vol] 8.7 mg/dL Normal 8.5-10.1 [facility] Comment on above: Performed By: #### F T3, LIPID, CMP, T7, TSH #### [facility] [address] [address] [address] Dioni Mayorga Chloride [Moles/Vol] 105 mmol/L Normal 98-107 [facility] Comment on above: Performed By: #### F T3, LIPID, CMP, T7, TSH #### [facility] [address] [address] [address] Dioni Mayorga CO2 [Moles/Vol] 26.4 mmol/L Normal 21.0-32.0 [facility] Comment on above: Performed By: #### F T3, LIPID, CMP, T7, TSH #### [facility] [address] [address] [address] Dioni Mayorga Creatinine [Mass/Vol] 0.83 mg/dL Normal 0.55-1.02 [facility] Comment on above: Performed By: #### F T3, LIPID, CMP, T7, TSH #### [facility] [address] [place] [address] Dr. Dioni Mayorga EGFR-AF CONGOLESE >60 Normal >=60 [facility] Comment on above: Performed By: #### F T3, LIPID, CMP, T7, TSH #### [facility] [address] [address] [address] Dioni Mayorga EGFR-NON AF CONGOLESE >60 Normal >=60 [facility] Comment on above: Performed By: #### F T3, LIPID, CMP, T7, TSH #### [facility] [address] [address] [address] Dioni Mayorga Globulin (S) [Mass/Vol] 3.5 g/dL Normal [facility] Comment on above: Performed By: #### F T3, LIPID, CMP, T7, TSH #### [facility] [address] [address] [address] Dioni Mayorga Glucose [Mass/Vol] 78 mg/dL Normal 74-106 [facility] Comment on above: Performed By: #### F T3, LIPID, CMP, T7, TSH #### [facility] [address] [place] [address] Dr. Dioni Mayorga Potassium [Moles/Vol] 4.4 mmol/L Normal 3.5-5.1 [facility] Comment on above: Performed By: #### F T3, LIPID, CMP, T7, TSH #### [facility] [address] [address] [address] Dioni Mayorga Protein [Mass/Vol] 7.0 g/dL Normal 6.4-8.2 [facility] Comment on above: Performed By: #### F T3, LIPID, CMP, T7, TSH #### [facility] [address] [address] [address] Dioni Mayorga Sodium [Moles/Vol] 141 mmol/L Normal 136-145 [facility] Comment on above: Performed By: #### F T3, LIPID, CMP, T7, TSH #### [facility] [address] [address] [address] Dioni Mayorga Urea nitrogen [Mass/Vol] 16.0 mg/dL Normal 7.0-18.0 [facility] Comment on above: Performed By: #### F T3, LIPID, CMP, T7, TSH #### [facility] [address] [place] [address] Dr. Dioni Mayorga Urea nitrogen/Creatinine [Mass ratio] 19.3 mg/mg Normal [facility] Comment on above: Performed By: #### F T3, LIPID, CMP, T7, TSH #### [facility] [address] [place], [place] [address] Dr. Dioni Mayorga TSHon 08-02-2021 TSH 1.339 uIU/mL Normal 0.358-3.740 [facility] Comment on above: Performed By: #### F T3, LIPID, CMP, T7, TSH #### [facility] [address] [place], [place] [address] Dr. Dioni Mayorga Vital Signs Date Time Vital Sign Value Performing Clinician Faci lity 09-03-2021 08:51-0400 Blood Pressure Location MICHAEL NUGENT [facility] 09-03-2021 08:51-0400 Diastolic blood pressure 96 mm[Hg] MICHAEL NUGENT [facility] 09-03-2021 08:51-0400 Heart rate 106 /min MICHAEL NUGENT [facility] 09-03-2021 08:51-0400 Systolic blood pressure 138 mm[Hg] MICHAEL NUGENT [facility] Encounters Encounter Date Encounter Type Care Provider Facility Start: 09-13-2023 End: 09-13-2023 ambulatory Harish Cannon MD Facility:[facility] Start: 05-17-2023 End: 05-17-2023 ambulatory Harish Cannon MD Facility:[facility] Start: 04-19-2023 End: 04-19-2023 ambulatory Harish Cannon MD Facility:[facility] Start: 01-11-2023 End: 01-11-2023 ambulatory Harish Cannon MD Facility:[facility] Start: 12-07-2022 End: 12-07-2022 ambulatory Harish Cannon MD Facility:[facility] Start: 11-23-2022 End: 11-23-2022 ambulatory Harish Cannon MD Facility:[facility] Start: 11-02-2022 End: 11-02-2022 ambulatory Harish Cannon MD Facility:[facility] Start: 03-02-2022 End: 03-02-2022 ambulatory SALVADOR GROSS Facility:[facility] Start: 12-15-2021 End: 12-15-2021 ambulatory SALVADOR GROSS Facility:[facility] Start: 12-09-2021 End: 12-09-2021 ambulatory SALVADOR GROSS Facility:[facility] Start: 09-17-2021 End: 09-18-[address] MONIKA MATTHEWS Facility:[facility] Start: 09-03-[address] MONIKA MATTHEWS Facility :[facility] Start: 09-03-2021 End: 09-03-2021 Patient encounter procedure MICHAEL NUGENT [facility] Start: 08-05-2021 Encounter for genera l adult medical examination without abnormal findings DR MONIKA MATTHEWS [facility] Start: 08-02-2021 End: 08-03-[address] MONIKA MATTHEWS Facility:[facility] Start: 08-02-2021 End: 08-03-2021 Encounter for general adult medical examination without abnormal findings DR MONIKA MATTHEWS Facility:[facility] Procedures Date Procedure Procedure Detail Performing Clinician Hysterectomy MICHAEL NUGENT Immunizations Immunization Date Immunization Notes Care Provider Fa roly NEGATED: Highlighted row has not occurred!09-03-2021 SARS-CoV-2 mRNA (tozinameran 5y-11y) vaccine MICHAEL NUGENT [facility] Payers Date Payer Category Payer Unknown [id number] 2022 Unknown 2019 Unknown [id number] 1970 Unknown [id number] 2.16.84 [id number] 1970 Unknown [id number] 2.16.84 [id number] 1970 Unknown [id number] 2.16.84 0.1.990027.3.579.2.593 1970 Unknown [id number] 2.16.84 0.1.761676.3.579.2.593 1970 Unknown [id number] 2.16.84 0.1.420396.3.579.2.593 1970 Unknown [id number] 2.16.84 0.1.212568.3.579.2.593 1970 Unknown [id number] 2.16. 840.1.587730.3.579.2.196 1970 Unknown [id number] 2.16. 840.1.280651.3.579.2.196 1970 Unknown [id number] 2.16. 840.1.614241.3.579.2.196 1970 Unknown [id number] 2.16. 840.1.652086.3.579.2.196 1970 Unknown [id number] 2.16. 840.1.358286.3.579.2.196 1970 Unknown [id number] 2.16. 840.1.961551.3.579.2.196 1970 Unknown [id number] 2.16. 840.1.187839.3.579.2.196 Social History Date Type Detail Facility Start: 09-03-2021 Tobacco smoking status Never s moked tobacco (finding) [facility] Tobacco smoking status Never [facility] Sex Assigned At Female [facility] Functional Status Date Assessment Result Facility 09-03-2021 Functional Status N/A [facility] Discharge instructions 09-03-2021 Note Date & [...] (electrical nerve stimulation). For women, using a hospital medical assistant to prevent urine leaks. This [...] right after experiencing incontinence. General instructions Take sbva-jsd-maxgisn and prescription medicines only as told by [...] 03/11/2005 Document Revised: 02/11/2018 Document Reviewed: 05/13/2017 [employer] Patient Education 2020 [employer]. Follow Up Care 08/06/2021 08:10:07 With:pt will call once she decides how she would like to proceed Address:Unknown When: Unknown [facility] Evaluation + Plan note Note Date & Type Note Facility Evaluation + Plan note Future Appointments Appointment Date:09/17/2021 08:30:00 AM Scheduled Provider: Location:[facility] Appointment Type:URO Nurse Visit [facility] Hospital course Narrative Note Date & Type Note Facility Hospital course Narrative No data available for this section [facility] Progress note Note Date & Type Note Facility Progress note No data available for this section [facility] Summary Purpose Family History No Family History Records FoundNo Family History Records FoundNo Family History Records Found Advance Directives No Advanced Directives Records FoundNo Advanced Directives Records FoundNo Advanced Directives Records Found Additional Source Comments Care Team (unrecognized sect ion and content) Personnel Name: Monika Matthews MD Address: [address] [place] [address] INFORMATION SOURCE (unrecogn ized section and content) DATE CREATED AUTHOR 09/18/2021 [facility] DATE CREATED AUTHOR AUTHOR'S ORGANIZ ATION 03/02/2022 [facility] DATE CREATED AUTHOR AUTHOR'S ORGANIZ ATION 09/28/2023 [facility] FOR RECORDS PERTAINING TO PATIENTS WHO [...] BE BASED ON THE PRIMARY CLINICAL RECORDS. [facility]. provides no warranty or guarantee of the accuracy or completeness of information in this document.
--- NOTE | 2024-04-27 08:25 | P.CN_ITS ---
Consult Note: HPI Data of Consult Patient: known to practice within the last 3 years Requesting Physician: Therese Montelongo NP Primary Care Provider: Romero Dykes MD Consult Narrative Reason for consult: f/u Narrative: Barbara Ovalle a pleasant 53 year old female presents for evaluation and management of chronic low back pain. Longstanding hx of low back pain secondary to lumbar spondylosis and lumbar DDD that has failed to significantly improve with >6 weeks of provider guided HEP, PT, heat, ice. Pt has responded very well to interventional therapy. Prior bilateral L4-5 L5-S1 facet RFA provided >50% improvement in pain and functional ability greater than 12 months. Pain today 2/10 increasing to 6/10 in the morning and evenings, with long periods of sitting, standing, walking, and lifting. Currently utilizing mobic 7.5mg BID PRN, gabapentin 100-200mg BID PRN, baclofen 10mg HS PRN, and otc tylenol. cc:: CC: Therese Montelongo NP Review of Systems ROS Status of ROS 10 or more systems reviewed and unremark able except as noted in history and below Musculoskeletal Reports: back pain and joint pain PFSH PFSH Medical History Low back ache ?M54.50 - Low back pain, unspecified (ICD-10) Obesity ?E66.9 - Obesity, unspecified (ICD-10) Surgical History H/O tooth extraction ?K08.409 - Partial loss of teeth, unspecified cause, unspecified class (ICD- 10) H/O: hysterectomy ?Z90.710 - Acquired absence of both cervix and uterus (ICD-10) Social History Smoking status: Never smoker Meds Home Medications and Allergies Home Medications ?Medication ?Instructions ?Recorded ?Confirmed ?Type loratadine-pseudoephedrine ER 10 1 tab PO DAILY 11/02/22 01/18/24 History mg-240 mg tablet,extended [id number] (Claritin-D 24 Hour) baclofen 10 mg tablet 10 mg PO DAILY PRN muscle spasm 11/17/23 01/18/24 History celecoxib 200 mg capsule (Celebrex) 200 mg PO BID 12/14/23 01/18/24 History acetaminophen 325 mg tablet 325 mg PO Q6H PRN pain 12/21/23 01/18/24 History (Tylenol) gabapentin 100 mg capsule mg 01/04/24 History gabapentin 100 mg capsule See Rx Instructions .Route 03/29/24 Rx .COMPLEX #60 caps Allergies Allergy/AdvReac Type Severity Reaction Status Date / Time No Known Drug Allergies Allergy Verified 01/18/24 07:02 Exam Back & Pelvis Lumbar spine/lower back: ROM limited, pain with ROM and lumbar spinal tenderness Lumbar spinal tenderness location: L4 and L5 Sacroiliac joints: SI joint(s) abnormal Other: left positive jhonny(patricks), gaenslens, thigh thrust, compression test sensation intact BLE Assessment and Plan Assessment and Plan (1) Lumbar spondylosis: Assessment and Plan: The patient has had over 3 months of moderate to severe low back pain with functional impairment and inadequate response to conservative care including NSAIDS (unless there are contraindication such as concurrent blood thinners), multiple oral or topical pain medications, and home exercise program/physical therapy.? Patient has completed >6 weeks of guided home exercise program and/or formal physical therapy program without relief of their symptoms.? I have reviewed the imaging of the lumbar spine and no red flags were identified.? The Oswestry Disability Index was completed, and the patient scored a 24%.? The patient noted the following:?? moderate pain, increased pain with standing, increased pain with walking, decreased sleep We discussed the risks and benefits of the procedure with the patient, and we are NOT planning on using sedation as outlined in the guidelines from Medicare unless there is a documented reason that sedation would be strongly recommended.??The procedure will be completed with fluoroscopic guidance.? (2) Sacroiliitis: (3) Muscle spasm: (4) Lumbar degenerative disc disease: Plan recommend repeating bilateral L4-5 L5-S1 facet RFA under fluoroscopy for axial low back pain, as for left SIJ pain recommend we trial a left SIJ injection under fluoroscopy. pt will call to schedule at a later date continue current medications f/u 2 weeks after left SIJ injection. f/u 1 month after repeat RFA
== END 2024-04-27 07:44 | disposition home or self-care (01) ==
LOC: PM 07:45
PROVIDERS: PCP Family Medicine; Visit Provider Nurse Practitioner
DX: M47.816 Spondylosis without myelopathy or radiculopathy, lumbar region (principal); M46.1 Sacroiliitis, not elsewhere classified; M62.838 Other muscle spasm; M51.369 Other intervertebral disc degeneration, lumbar region without mention of lumbar back pain or lower extremity pain
CPT/HCPCS: G0463

== ENCOUNTER 2024-06-19 06:49 | Day surgery (SDC) | payer BC, SELFPAY ==
[2024-06-19 06:57] VITALS: BP 126/90; PULSE 95; TEMP 36.7; O2SAT 97
[2024-06-19 07:34] VITALS: BP 117/59; PULSE 79; O2SAT 95
[2024-06-19 07:37] VITALS: BP 122/74; PULSE 75; O2SAT 97
[2024-06-19] MEDS: BUPIVACAINE HCL 0.25% PF 25 MG/10 ML VIAL 4 ML INJ (07:39)
[2024-06-19] MEDS: LIDOCAINE HCL 2% 400 MG/20 ML MDV 16 ML INJ (07:39)
[2024-06-19] MEDS: METHYLPREDNISOLONE ACETATE 40 MG/ML VIAL 80 MG INJ (07:39)
--- NOTE | 2024-06-19 07:50 | P.ON_ITS ---
Date of procedure: 06/19/24 Pre-op diagnosis: Pain due to lumbar spondylosis without myelopathy Post-op diagnosis: same as pre-op Procedure: Procedure: Bilateral L4-5, L5-S1 radiofrequency ablation Medications: Bupivacaine 0.25% 6cc, depomedrol 80mg, lidocaine 2% 6cc The patient was seen and examined in the preoperative holding area.? The site was marked.? Written informed consent was obtained and placed on the chart.? The patient was brought to the medical procedure unit and placed in the prone position.? A timeout was completed verifying correct patient, procedure, positioning, and special requirements.? The skin overlying the target points, the designated medial branch, were prepped and draped in the usual sterile fashion.? The target point was achieved with a 20-gauge 15 cm with a 10 mm curved active tip radiofrequency cannula under direct fluoroscopic visualizati on.? The needle was inserted at level L4 on the right side. Needle tip position was confirmed with lateral fluoroscopic position.? Motor stimulation was carried out at 2 Hz up to 5 volts with the absence of extremity activity.? This was repeated at level L5, S1 on right side.?? Sensory stimulation was carried out.? Concordant pain was realized at the above- mentioned sites.? Then radiofrequency lesioning was carried out times 90 seconds at 80 degrees times 2 lesions at each level.? The radiofrequency probe was removed prior to cannula removal.? The above-mentioned injectate was placed in 1 mL increments.? The needle was removed. The same procedure, with the same steps, was then completed on the left side at the same levels. Insertion sites were covered.? The patient was taken to the postoperative recovery area and monitored for an appropriate length of time before being found suitable for discharge in the company of a responsible adult. Anesthesia: Local Surgeon: Harish Cannon Pathology: none sent Condition: stable Disposition: no change
== END 2024-06-19 07:55 | disposition home or self-care (01) ==
PROVIDERS: PCP Family Medicine; Visit Provider Anesthesiology
DX: M47.816 Spondylosis without myelopathy or radiculopathy, lumbar region (principal); M54.50 Low back pain, unspecified
CPT/HCPCS: 64635; 64636; J0665; J1010

== ENCOUNTER 2024-07-19 07:46 | Outpatient (OUT) | payer BC, SELFPAY ==
--- OUTSIDE RECORDS SUMMARY | 2024-07-19 08:08 | XMS_ITS | CCD ---
Author Organization [facility] Care Team Providers Care House Admin Name Role Phone Monika Matthews Primary Care [...] Value Interpretation Reference Range Facility Covid-19 PCR ([facility])on 02-15 SARS-CoV-2 (COVID-19) RNA YAMILET+probe Ql (Unsp spec) Not detected Normal NOT DETECTED [facility] Comment on above: Result Comment: When diagnostic [...] for this test is supported by the Safe Deposit Box Rental Clerk of Health and Human Service's declaration that [...] be used). Performed By: #### C VDTB ####[facility] [id number] [place] [id number]. Dioni Mayorga INFLUENZA A AND B AGon 03-02 [facility] SEE BELOW [facility] Comment on above: Result Comment: Nega tive for Flu A protein angiten. Infection due to Flu A cannot be ruled out. Flu A angiten in the sample may be below the detection limit of the test. Performed By: #### I NFLUAB #### [facility] [address] [place] [address] Dr. Dioni [facility] Normal [facility] Comment on above: Result Comment: Nega tive for Flu B protein antigen. Infection due to Flu B cannot be ruled out. Flu B antigen in the sample may be below the detection limit of the test. Performed By: #### I NFLUAB #### [facility] [address] [place] [address] Dr. Dioni Mayorga INFLUENZA A AG Negative Normal NEGATIVE SEE COMMENT [facility] Comment on above: Performed By: #### I NFLUAB #### [facility] [address] [place] [address] Dr. Dioni Mayorga INFLUENZA B AG Negative Normal NEGATIVE SEE COMMENT [facility] Comment on above: Performed By: #### I NFLUAB #### [facility] [address] [place] [address] Dr. Dioni Mayorga ASYMPTOMATIC COVID-19 ANTIGE Non 12-15-2021 EUA Statement SEE BELOW Normal The [facility] Comment on above: Result Comment: This test [...] sooner. Performed By: #### C VDAGA #### [facility] [address] [place] [address] Dr. Dioni Mayorga SARS-CoV-2 (COVID-19) RNA YAMILET+probe Ql (Unsp spec) Negative Normal NEGATIVE [facility] Comment on above: Result Comment: Nega tive results are presumptive. They do not preclude infection and should not be used as the sole basis for treatment decisions. Additional confirmatory testing by a molecular method should be considered. Performed By: #### C VDAGA #### [facility] [address] [place] [address] [address] Dioni Mayorga [facility]on [facility]-16 SARS-CoV-2 (COVID-19) RNA YAMILET+probe Ql (Unsp spec) Detected Critically abnormal NOT DETECTED [facility] Comment on above: Result Comment: This test is not yet approved or cleared by the [place] FDA. When there are no FDA-approved or cleared tests available, and other criteria are met, FDA can make tests available under an emergency access mechanism called an Emergency Use Authorization (EUA). The EUA for this test is supported by the Safe Deposit Box Rental Clerk of Health and Human Service's declaration that [...] longer be used). Performed By: #### C [facility] ####[facility] [id number] [place], [place] [address]Mt. Dioni Mayorga MG MAMM SCREEN 3D DUSTIN CADon 09-17-2021 MG MAMM SCREEN 3D DUSTIN CAD Patient: BARBARA BACA Exam Date: 09/17/2021 : 1970 Gender:F Ordering : DR MONIKA MATTHEWS . Admission #: [id number] Family : Order #: [id number] CLICK HERE TO VIEW EXAM RADIOLOGY REPORT PROCEDURE: MAMMOGRAM SCREENING 3D BILATERAL CAD COMPARISON: MG MAMM SCREEN 3D DUSTIN CAD, 05/08/2020. MAMMO POST BIOPSY RIGHT, 01/04/2018. INDICATIONS: Screening mammography Calculator Name NCI Breast Cancer Risk Assessment Tool 5 Year Breast Cancer Risk 1.00% Lifetime Breast Cancer Risk 9.60% Personal Breast Cancer No Personal Ovarian Cancer No Treatments None Family Cancers None LOCATION: [facility] BREAST COMPOSITION: Scattered areas fibroglandular density. FINDINGS: [...] Rodarte M.D. on 09/17/2021 at 13:13 [facility]son 09-04-2021 Forms [id number] #1.00CD:127 Normal [facility] Patient Educationon [...] [facility] 022 Physician Referral [id number]#1.00CD:127 Normal [facility] Urology Office/Clinic [...] had hysterectomy about 10 yrs ago. previous STATUARY PAINTER advised her bladder had dropped a bit. [...] E&M of New Patient Moderate 45-59 Min [id number] Follow-up With When Contact Information pt will [...] - Not Given Postpone due to refusal [facility] Comment on above: Result Comment: Elec tronically Signed By: MCIHAEL NUGETN PA-C\.br\Date and Time Signed: 09/04/21 09:42 EDT Ambulatory Visit Summaryon 0 09-03-2021 Ambulatory Visit Summary BARBARA BACA :1970 Visit Date:09/03/2021 Ambulatory Visit Instructions Your Diagnosis Stress incontinence Tests Performed Urnls Dip Stick Auto w/o Microscopy POC 08094 Your Care Team Attending Physician - MICHAEL [...] Urnls Dip Stick Auto w/o Microscopy POC 57743 (09/03/2021) Bilirubin Urine Dipstick - Negative Blood Urine Dipstick - Trace-intact Glucose Urine Dipstick - Negative Ketones Urine Dipstick - Negative Leukocytes Urine Dipstick - Negative Nitrite Urine Dipstick - Negative Protein Urine Dipstick - Negative Specific [place] Urine Dipstick - 1.020 Urine Appearance Urine [...] 08-02-2021 BASO # 0.0 103/ul Normal 0.0-0.1 [facility] Comment on above: Performed By: #### C BC #### [facility] [address] [place] [address] Dr. Dioni Mayorga Basophils/100 WBC (Bld) 0.4 % Normal 0.2-2.0 [facility] Comment on above: Performed By: #### C BC #### [facility] [address] [place] [address] Dr. Dioni Mayorga EO # 0.1 103/ul Normal 0.0-0.7 [facility] Comment on above: Performed By: #### C BC #### [facility] [address] [place] [address] Dr. Dioni Mayorga Eosinophils/100 WBC (Bld) 1.0 % Normal 0.9-7.0 [facility] Comment on above: Performed By: #### C BC #### [facility] [address] [place] [address] Dr. Dioni Mayorga Erythrocyte distribution width (RBC) [Ratio] 13.4 % Normal 11.0-15.0 [facility] Comment on above: Performed By: #### C BC #### [facility] [address] [place] [address] Dr. Dioni Mayorga Hematocrit (Bld) [Volume fraction] 45.2 % Normal 36.0-48.0 [facility] Comment on above: Performed By: #### C BC #### [facility] [address] [place] [address] Dr. Dioni Mayorga Hemoglobin (Bld) [Mass/Vol] 14.5 g/dL Normal 12.0-16.0 [facility] Comment on above: Performed By: #### C BC #### [facility] [address] [place] [address] Dr. Dioni Mayorga IG # 0.02 10e3/ul Normal 0.00-0.03 [facility] Comment on above: Performed By: #### C BC #### [facility] [address] [place] [address] Dr. Dioni Mayorga IG % 0.3 % Normal 0.0-0.5 [facility] Comment on above: Performed By: #### C BC #### [facility] [address] [place] [address] Dr. Dioni Mayorga LYMPH # 2.7 103/ul Normal 1.2-3.8 [facility] Comment on above: Performed By: #### C BC #### [facility] [address] [place] [address] Dr. Dioni Mayorga Lymphocytes/100 WBC (Bld) 38.7 % Normal 20.5-60.0 [facility] Comment on above: Performed By: #### C BC #### [facility] [address] [place] [address] Dr. Dioni Mayorga MANUAL DIFF REQ NO Normal [facility] Comment on above: Performed By: #### C BC #### [facility] [address] [place] [address] Dr. Dioni Mayorga MCH (RBC) [Entitic mass] 28.4 pg Normal 26.7-34.0 [facility] Comment on above: Performed By: #### C BC #### [facility] [address] [place] [address] Dr. Dioni Mayorga MCHC (RBC) [Mass/Vol] 32.1 g/dL Normal 29.9-35.2 [facility] Comment on above: Performed By: #### C BC #### [facility] [address] [place] [address] Dr. Dioni Mayorga MCV (RBC) [Entitic vol] 88.5 fL Normal 81.0-99.0 [facility] Comment on above: Performed By: #### C BC #### [facility] [address] [address] [address] Dioni Mayorga MONO # 0.4 103/ul Normal 0.3-0.8 [facility] Comment on above: Performed By: #### C BC #### [facility] [address] [address] [address] Dioni Mayorga Monocytes/100 WBC (Bld) 6.2 % Normal 1.7-12.0 [facility] Comment on above: Performed By: #### C BC #### [facility] [address] [address] [address] Dioni Mayorga NEUT # 3.7 103/ul Normal 1.4-6.5 [facility] Comment on above: Performed By: #### C BC #### [facility] [address] [place] [address] Dr. Dioni Mayorga Neutrophils/100 WBC (Bld) 53.4 % Normal 43.0-75.0 [facility] Comment on above: Performed By: #### C BC #### [facility] [address] [place] [address] Dr. Dioni Mayorga Platelet mean volume (Bld) [Entitic vol] 10.4 fL Normal 9.5-13.5 [facility] Comment on above: Performed By: #### C BC #### [facility] [address] [place] [address] Dr. Dioni Mayorga PLT 340 103/ul Normal 150-450 [facility] Comment on above: Performed By: #### C BC #### [facility] [address] [place] [address] Dr. Dioni Mayorga RBC 5.11 106/ul Normal 4.20-5.40 [facility] Comment on above: Performed By: #### C BC #### [facility] [address] [place] [address] Dr. Dioni Mayorga WBC 6.9 103/ul Normal 4.0-11.0 [facility] Comment on above: Performed By: #### C BC #### [facility] [address] [address] [address] Dioni Mayorga FREE T3on 08-02-2021 FREE T3 1.49 pg/mlL Critically low 2.18-3.98 [facility] Comment on above: Performed By: #### F T3, LIPID, CMP, T7, TSH #### [facility] [address] [address] [address] Dioni Mayorga FREE THYROXINE INDEX T7on FTI 2.77 Normal 1.30-4.50 [facility] Comment on above: Performed By: #### F T3, LIPID, CMP, T7, TSH #### [facility] [address] [address] [address] Dioni Mayorga T3U 36.0 % Normal 30.0-39.0 [facility] Comment on above: Performed By: #### F T3, LIPID, CMP, T7, TSH #### [facility] [address] [place] [address] Dr. Dioni Mayorga T4 [Mass/Vol] 7.70 ug/dL Normal 4.80-13.90 [facility] Comment on above: Performed By: #### F T3, LIPID, CMP, T7, TSH #### [facility] [address] [address] [address] Dioni Mayorga GLYCOHEMOGLOBIN A1Con 2021 ADA RECOMMENDATION SEE BELOW Normal [facility] Comment on above: Result Comment: ADA RECOMMENDED LIMIT 4.0 - 6.0 ADA THERAPEUTIC TARGET < 7.0 ACTION SUGGESTED > 7.0 Performed By: #### A 1C #### [facility] [address] [place] [address] Dr. Dioni Mayorga Glucose [Mass/Vol] 111 mg/dL Normal [facility] Comment on above: Performed By: #### A 1C #### [facility] [address] [place] [address] Dr. Dioni Mayorga HbA1c (Bld) [Mass fraction] 5.5 % Normal 4.5-6.2 [facility] Comment on above: Performed By: #### A 1C #### [facility] [address] [address] [address] Dioni Mayorga LIPID PROFILEon 08-02-2021 CHOL-HDL RATIO NORM SEE BELOW Normal [facility] Comment on above: Result Comment: 3.3 - 4.4 LOW RISK 4.4 - 7.1 AVERAGE RISK 7.1 - 11.0 MODERATE RISK >11.0 HIGH RISK Performed By: #### F T3, LIPID, CMP, T7, TSH #### [facility] [address] [address] [address] Dioni Mayorga Cholesterol [Mass/Vol] 211 mg/dL Critically high <=200 [facility] Comment on above: Performed By: #### F T3, LIPID, CMP, T7, TSH #### [facility] [address] [address] [address] Dioni Mayorga Cholesterol in HDL [Mass/Vol] 48 mg/dL Normal 40-60 [facility] Comment on above: Performed By: #### F T3, LIPID, CMP, T7, TSH #### [facility] [address] [address] [address] Dioni Mayorga Cholesterol in LDL [Mass/Vol] 148.6 mg/dL [facility] Comment on above: Performed By: #### F T3, LIPID, CMP, T7, TSH #### [facility] [address] [address] [address] Dioni Mayorga Cholesterol.total/Ch olesterol in HDL [Mass ratio] 4.4 {ratio} [facility] Comment on above: Performed By: #### F T3, LIPID, CMP, T7, TSH #### [facility] [address] [address] [address] Dioni Mayorga HDL NORMAL > or = 60 mg/dl - LOW CARDIOVASCULAR RISK <40 mg/dl - HIGH CARDIOVASCULAR RISK [facility] Comment on above: Performed By: #### F T3, LIPID, CMP, T7, TSH #### [facility] [address] [address] [address] Dioni Mayorga LDL CALC NORMAL SEE BELOW Normal [facility] Comment on above: Result Comment: <100 mg/dl OPTIMAL 100 - 129 mg/dl NEAR OR ABOVE OPTIMAL 130 - 159 mg/dl BORDERLINE HIGH 160 - 189 mg/dl HIGH >190 mg/dl VERY HIGH Performed By: #### F T3, LIPID, CMP, T7, TSH #### [facility] [address] [address] [address] Dioni Mayorga Triglyceride [Mass/Vol] 72 mg/dL Normal <=150 [facility] Comment on above: Performed By: #### F T3, LIPID, CMP, T7, TSH #### [facility] [address] [address] [address] Dioni Mayorga VLDL CALC 14.4 mg/dL [facility] Comment on above: Performed By: #### F T3, LIPID, CMP, T7, TSH #### [facility] [address] [address] [address] Dioni Mayorga PROF 14(COMP METB)on 022 Albumin [Mass/Vol] 3.5 g/dL Normal 3.4-5.0 [facility] Comment on above: Performed By: #### F T3, LIPID, CMP, T7, TSH #### [facility] [address] [address] [address] Dioni Mayorga Albumin/Globulin [Mass ratio] 1.0 {ratio} Normal [facility] Comment on above: Performed By: #### F T3, LIPID, CMP, T7, TSH #### [facility] [address] [address] [address] Dioni Mayorga ALP [Catalytic activity/Vol] 62 U/L Normal 46-116 [facility] Comment on above: Performed By: #### F T3, LIPID, CMP, T7, TSH #### [facility] [address] [address] [address] Dioni Mayorga ALT [Catalytic activity/Vol] 20 U/L Normal 14-59 [facility] Comment on above: Performed By: #### F T3, LIPID, CMP, T7, TSH #### [facility] [address] [address] [address] Dioni Mayorga Anion gap [Moles/Vol] 14.0 mmol/L [facility] Comment on above: Performed By: #### F T3, LIPID, CMP, T7, TSH #### [facility] [address] [address] [address] Dioni Mayorga AST [Catalytic activity/Vol] 12 U/L Critically low 15-37 [facility] Comment on above: Performed By: #### F T3, LIPID, CMP, T7, TSH #### [facility] [address] [address] [address] Dioni Mayorga Bilirubin [Mass/Vol] 0.4 mg/dL Normal 0.2-1.0 [facility] Comment on above: Performed By: #### F T3, LIPID, CMP, T7, TSH #### [facility] [address] [address] [address] Dioni Mayorga Calcium [Mass/Vol] 8.7 mg/dL Normal 8.5-10.1 [facility] Comment on above: Performed By: #### F T3, LIPID, CMP, T7, TSH #### [facility] [address] [address] [address] Dioni Mayorga Chloride [Moles/Vol] 105 mmol/L Normal 98-107 [facility] Comment on above: Performed By: #### F T3, LIPID, CMP, T7, TSH #### [facility] [address] [address] [address] iDoni Mayorga CO2 [Moles/Vol] 26.4 mmol/L Normal 21.0-32.0 The [facility] Comment on above: Performed By: #### F T3, LIPID, CMP, T7, TSH #### [facility] [address] [address] [address] Dioni Mayorga Creatinine [Mass/Vol] 0.83 mg/dL Normal 0.55-1.02 [facility] Comment on above: Performed By: #### F T3, LIPID, CMP, T7, TSH #### [facility] [address] [place] [address] Dr. Dioni Mayorga EGFR-AF MALIAN >60 Normal >=60 The [facility] Comment on above: Performed By: #### F T3, LIPID, CMP, T7, TSH #### [facility] [address] [address] [address] Dioni Mayorga EGFR-NON AF MALIAN >60 Normal >=60 [facility] Comment on above: Performed By: #### F T3, LIPID, CMP, T7, TSH #### [facility] [address] [address] [address] Dioni Mayorga Globulin (S) [Mass/Vol] 3.5 g/dL [facility] Comment on above: Performed By: #### F T3, LIPID, CMP, T7, TSH #### [facility] [address] [address] [address] Dioni Mayorga Glucose [Mass/Vol] 78 mg/dL Normal 74-106 [facility] Comment on above: Performed By: #### F T3, LIPID, CMP, T7, TSH #### [facility] [address] [place] [address] Dr. Dioni Mayorga Potassium [Moles/Vol] 4.4 mmol/L Normal 3.5-5.1 [facility] Comment on above: Performed By: #### F T3, LIPID, CMP, T7, TSH #### [facility] [address] [address] [address] Dioni Mayorga Protein [Mass/Vol] 7.0 g/dL Normal 6.4-8.2 [facility] Comment on above: Performed By: #### F T3, LIPID, CMP, T7, TSH #### [facility] [address] [address] [address] Dioni Mayorga Sodium [Moles/Vol] 141 mmol/L Normal 136-145 [facility] Comment on above: Performed By: #### F T3, LIPID, CMP, T7, TSH #### [facility] [address] [address] [address] Dioni Mayorga Urea nitrogen [Mass/Vol] 16.0 mg/dL Normal 7.0-18.0 [facility] Comment on above: Performed By: #### F T3, LIPID, CMP, T7, TSH #### [facility] [address] [place] [address] Dr. Dioin Mayorga Urea nitrogen/Creatinine [Mass ratio] 19.3 mg/mg [facility] Comment on above: Performed By: #### F T3, LIPID, CMP, T7, TSH #### [facility] [address] [place], [place] [address] Dr. Dioni Mayorga TSHon 08-02-2021 TSH 1.339 uIU/mL Normal 0.358-3.740 [facility] Comment on above: Performed By: #### F T3, LIPID, CMP, T7, TSH #### [facility] [address] [place], [place] [address] Dr. Dioni Mayorga Vital Signs Date Time Vital Sign Value Performing Clinician Faci lity 09-03-2021 08:51-0400 Blood Pressure Location MICHAEL NUGENT [facility] 09-03-2021 08:51-0400 Diastolic blood pressure 96 mm[Hg] MICHAEL NUGENT [facility] 09-03-2021 08:51-0400 Heart rate 106 /min MICHAEL NUGENT [facility] 09-03-2021 08:51-0400 Systolic blood pressure 138 mm[Hg] MICHAEL NUGENT [facility] Encounters Encounter Date Encounter Type Care Provider Facility Start: 09-13-2023 End: 09-13-2023 ambulatory Harish Cannon MD Facility:[facility] Start: 05-17-2023 End: 05-17-2023 ambulatory Harish Cannon MD Facility:[facility] Start: 04-19-2023 End: 04-19-2023 ambulatory Harish Cnanon MD Facility:[facility] Start: 01-11-2023 End: 01-11-2023 ambulatory Harish Cannon MD Facility:[facility] Start: 12-07-2022 End: 12-07-2022 ambulatory Harish Cannon MD Facility:[facility] Start: 11-23-2022 End: 11-23-2022 ambulatory Hairsh Cannon MD Facility:[facility] Start: 11-02-2022 End: 11-02-2022 ambulatory Harish Cannon MD Facility:[facility] Start: 03-02-2022 End: 03-02-2022 ambulatory SALVADOR GROSS Facility:[facility] Start: 12-15-2021 End: 12-15-2021 ambulatory SALVADOR GROSS Facility:[facility] Start: 12-09-2021 End: 12-09-2021 ambulatory SALVADOR GROSS Facility:[facility] Start: 09-17-2021 End: 09-18-[address] MONIKA MATTHEWS Facility:[facility] Start: 09-03-[address] MONIKA MATTHEWS Facility :[facility] Start: 09-03-2021 End: 09-03-2021 Patient encounter procedure MICHAEL NUGENT [facility] Start: 08-05-2021 Encounter for genera l adult medical examination without abnormal findings [facility] Start: 08-02-2021 End: 08-03-[address] MONIKA MATTHEWS Facility:[facility] Start: 08-02-2021 End: 08-03-2021 Encounter for general adult medical examination without abnormal findings DR MONIKA MATTHEWS Facility:[facility] Procedures Date Procedure Procedure Detail Performing Clinician Hysterectomy MICHAEL NUGENT Immunizations Immunization Date Immunization Notes Care Provider Fa roly NEGATED: Highlighted row has not occurred!09-03-2021 SARS-CoV-2 mRNA (tozinameran 5y-11y) vaccine MICHAEL NUGENT [facility] Payers Date Payer Category Payer Unknown [id number] 2022 Unknown 2019 Unknown [id number] 1970 Unknown [id number] 2.16.84 [id number] 1970 Unknown [id number] 2.16.84 [id number] 1970 Unknown [id number] 2.16.84 [id number] 1970 Unknown [id number] 2.16.84 [id number] 1970 Unknown [id number] 2.16.84 [id number] 1970 Unknown [id number] 2.16.84 0.1.454664.3.579.2.593 1970 Unknown [id number] 2.16. 840.1.852507.3.579.2.196 1970 Unknown [id number] 2.16. 840.1.578943.3.579.2.196 1970 Unknown [id number] 2.16. 840.1.238081.3.579.2.196 1970 Unknown [id number] 2.16. 840.1.284019.3.579.2.196 1970 Unknown [id number] 2.16. 840.1.376940.3.579.2.196 1970 Unknown [id number] 2.16. 840.1.579384.3.579.2.196 1970 Unknown [id number] 2.16. 840.1.271309.3.579.2.196 Social History Date Type Detail Facility Start: 09-03-2021 Tobacco smoking status Never s moked tobacco (finding) [facility] [place] Tobacco smoking status Never [facility] Sex Assigned At Female [facility] Functional Status Date Assessment Result Facility 09-03-2021 Functional Status N/A [facility] Discharge instructions 09-03-2021 Note Date & [...] (electrical nerve stimulation). For women, using a chief medical technologist to prevent urine leaks. This [...] right after experiencing incontinence. General instructions Take hypp-mbi-cwtbavw and prescription medicines only as told by [...] 03/11/2005 Document Revised: 02/11/2018 Document Reviewed: 05/13/2017 [employer] Patient Education 2020 [employer]. Follow Up Care 08/06/2021 08:10:07 With:pt will call once she decides how she would like to proceed Address:Unknown When: Unknown [facility] [place] Evaluation + Plan note Note Date & Type Note Facility Evaluation + Plan note Future Appointments Appointment Date:09/17/2021 08:30:00 AM Scheduled Provider: Location:[facility] Appointment Type:URO Nurse Visit [facility] Hospital course Narrative Note Date & Type Note Facility Hospital course Narrative No data available for this section [facility] Progress note Note Date & Type Note Facility Progress note No data available for this section [facility] [place] Summary Purpose Family History No Family History Records FoundNo Family History Records FoundNo Family History Records Found Advance Directives No Advanced Directives Records FoundNo Advanced Directives Records FoundNo Advanced Directives Records Found Additional Source Comments Care Team (unrecognized sect ion and content) Personnel Name: Monika Matthews MD Address: [address] [place] [address] INFORMATION SOURCE (unrecogn ized section and content) DATE CREATED AUTHOR 09/18/2021 [facility] DATE CREATED AUTHOR AUTHOR'S ORGANIZ ATION 03/02/2022 [facility] DATE CREATED AUTHOR AUTHOR'S ORGANIZ ATION 09/28/2023 [facility] FOR RECORDS PERTAINING TO PATIENTS [...] BE BASED ON THE PRIMARY CLINICAL RECORDS. [facility] [employer] [facility]. provides no warranty or guarantee of the accuracy or completeness of information in this document.
--- NOTE | 2024-07-19 08:10 | PM.CN ---
Consult Note: HPI Data of Consult Patient: known to practice within the last 3 years Requesting Physician: Therese Montelongo NP Primary Care Provider: Romero Dykes MD Consult Narrative Reason for consult: f/u Narrative: Barbara Ovalle a pleasant 53 year old female presents for evaluation and management of chronic low back pain. Longstanding hx of low back pain secondary to lumbar spondylosis and lumbar DDD that has failed to significantly improve with >6 weeks of provider guided HEP, PT, heat, ice. Pt has responded very well to interventional therapy. recently underwent bilateral L4-5 L5-S1 facet RFA with >50% improvement in axial low back pain. notes moderate to severe left SIJ pain, worst in the AM and after work. ferdinand numbness, tingling, weakness to BLE. Pain today 4/10 increasing to 8/10. cc:: CC: Therese Montelongo NP Review of Systems ROS Status of ROS 10 or more systems reviewed and unremarkable except as noted in history and below Musculoskeletal Reports: back pain and joint pain PFSH PFSH Medical History Low back ache ?M54.50 - Low back pain, unspecified (ICD-10) Obesity ?E66.9 - Obesity, unspecified (ICD-10) Surgical History H/O tooth extraction ?K08.409 - Partial loss of teeth, unspecified cause, unspecified class (ICD-10) H/O: hysterectomy ?Z90.710 - Acquired absence of both cervix and uterus (ICD-10) Social History Smoking status: Never smoker Meds Home Medications and Allergies Home Medications ?Medication ?Instructions ?Recorded ?Confirmed ?Type loratadine-pseudoephedrine ER 10 1 tab PO DAILY 11/02/22 06/19/24 History mg-240 mg tablet,extended [id number] (Claritin-D 24 Hour) baclofen 10 mg tablet 10 mg PO DAILY PRN muscle spasm 11/17/23 06/19/24 History acetaminophen 325 mg tablet 325 mg PO Q6H PRN pain 12/21/23 06/19/24 History (Tylenol) gabapentin 100 mg capsule 100 mg PO Q8H 01/04/24 06/19/24 History gabapentin 100 mg capsule See Rx Instructions .Route 03/29/24 06/19/24 Rx .COMPLEX #60 caps Allergies Allergy/AdvReac Type Severity Reaction Status Date / Time No Known Drug Allergies Allergy Verified 06/19/24 07:01 Exam Back & Pelvis Lumbar spine/lower back: no pain with ROM and no lumbar spinal tenderness Sacroiliac joints: SI joint(s) abnormal Other: left positive jhonny(patricks), gaenslens, thigh thrust, compression test sensation intact BLE negative facet loading pain improved at L4-S1 facets on exam Assessment and Plan Assessment and Plan (1) Sacroiliitis: Assessment and Plan: The patient has had over 3 months of moderate to severe low back pain with functional impairment and inadequate response to conservative care including NSAIDS (unless there are contraindication such as concurrent blood thinners), multiple oral or topical pain medications, and home exercise program/physical therapy.? Patient has completed >6 weeks of guided home exercise program and/or formal physical therapy program without relief of their symptoms.? I have reviewed the imaging of the lumbar spine and no red flags were identified.? The Oswestry Disability Index was completed, and the patient scored a 30%.? The patient noted the following:?? moderate pain, increased pain with standing, increased pain with walking, decreased sleep We discussed the risks and benefits of the procedure with the patient, and we are NOT planning on using sedation as outlined in the guidelines from Medicare unless there is a documented reason that sedation would be strongly recommended.??The procedure will be completed with fluoroscopic guidance.? (2) Lumbar spondylosis: (3) Muscle spasm: (4) Lumbar degenerative disc disease: Plan left SIJ injection under fluoroscopy continue current medications continue HEP as tolerated f/u 2 weeks after SIJ injection
== END 2024-07-19 07:47 | disposition home or self-care (01) ==
PROVIDERS: PCP Family Medicine; Visit Provider Nurse Practitioner
DX: M46.1 Sacroiliitis, not elsewhere classified (principal); M47.816 Spondylosis without myelopathy or radiculopathy, lumbar region; M62.838 Other muscle spasm; M51.369 Other intervertebral disc degeneration, lumbar region without mention of lumbar back pain or lower extremity pain
CPT/HCPCS: G0463

== ENCOUNTER 2024-07-31 10:45 | Day surgery (SDC) | payer BC, SELFPAY ==
[2024-07-31 11:03] VITALS: BP 142/88; PULSE 112; TEMP 37; O2SAT 98
--- OUTSIDE RECORDS SUMMARY | 2024-07-31 11:06 | XMS_ITS | CCD ---
Author Organization [facility] CliniSyms Care Team Providers Care Machinist Class B Name Role Phone Monika Matthews Primary Care [...] Value Interpretation Reference Range Facility Covid-19 PCR ([facility])on 02-15 SARS-CoV-2 (COVID-19) RNA YAMILET+probe Ql (Unsp spec) Not detected Normal NOT DETECTED [facility] Comment on above: Result Comment: When diagnostic [...] for this test is supported by the [place] of Health and Human Service's declaration that [...] be used). Performed By: #### C VDTB ####[facility] [id number] [place] [address]Dr. Dioni Mayorga INFLUENZA A AND B AGon 03-02 [facility] SEE BELOW Normal [facility] Comment on above: Result Comment: Nega tive for Flu A protein angiten. Infection due to Flu A cannot be ruled out. Flu A angiten in the sample may be below the detection limit of the test. Performed By: #### I NFLUAB #### [facility] [address] [place] [address] Dr. Dioni Mayorga [facility] BELOW Normal [facility] Comment on above: Result Comment: Nega tive for Flu B protein antigen. Infection due to Flu B cannot be ruled out. Flu B antigen in the sample may be below the detection limit of the test. Performed By: #### I NFLUAB #### [facility] [address] [place] [address] Dr. Dioni Mayorga INFLUENZA A AG Negative Normal NEGATIVE SEE COMMENT [facility] Comment on above: Performed By: #### I NFLUAB #### [facility] [address] [place] [address] Dr. Dioni Mayorga INFLUENZA B AG Negative Normal NEGATIVE SEE COMMENT [facility] Comment on above: Performed By: #### I NFLUAB #### [facility] [address] [place] [address] Dr. Dioni Mayorga ASYMPTOMATIC COVID-19 ANTIGE Non 12-15-2021 EUA Statement SEE BELOW Normal [facility] Comment [...] sooner. Performed By: #### C VDAGA #### [facility] [address] [place] [address] Dr. Dioni Mayorga SARS-CoV-2 (COVID-19) RNA YAMILET+probe Ql (Unsp spec) Negative Normal NEGATIVE [facility] Comment on above: Result Comment: Nega tive results are presumptive. They do not preclude infection and should not be used as the sole basis for treatment decisions. Additional confirmatory testing by a molecular method should be considered. Performed By: #### C VDAGA #### [facility] [address] [place] [address] [id number] [address] Dioni Mayorga [facility]-19 [facility]on 11-16 SARS-CoV-2 (COVID-19) RNA YAMILET+probe Ql (Unsp spec) Detected Critically abnormal NOT DETECTED [facility] Comment on above: Result Comment: This test is not yet approved or cleared by the [place] FDA. When there are no FDA-approved or cleared tests available, and other criteria are met, FDA can make tests available under an emergency access mechanism called an Emergency Use Authorization (EUA). The EUA for this test is supported by the [place] of Health and Human Service's declaration [...] used). Performed By: #### C [facility] ####[facility] [address] [place], [place] [address]Kg. Dioni Mayorga MG MAMM SCREEN 3D DUSTIN CADon 09-17-2021 MG MAMM SCREEN 3D DUSTIN CAD Patient: BARBARA BACA Exam Date: 09/17/2021 : 1970 Gender:F Ordering : DR MONIKA MATTHEWS . Admission #: [id number] Family : Order #: [id number] CLICK HERE TO VIEW EXAM RADIOLOGY REPORT PROCEDURE: MAMMOGRAM SCREENING 3D BILATERAL CAD COMPARISON: MG MAMM SCREEN 3D DUSTIN CAD, 05/08/2020. MAMMO POST BIOPSY RIGHT, 01/04/2018. INDICATIONS: Screening mammography Calculator Name NCI Breast Cancer Risk Assessment Tool 5 Year Breast Cancer Risk 1.00% Lifetime Breast Cancer Risk 9.60% Personal Breast Cancer No Personal Ovarian Cancer No Treatments None Family Cancers None LOCATION: [facility] BREAST COMPOSITION: Scattered areas fibroglandular density. FINDINGS: [...] Rodarte M.D. on 09/17/2021 at 13:13 Normal [facility] Formson 09-04-2021 Forms [id number] #1.00CD:127 Normal [facility] Patient Educationon 09-05-19 Patient Education [...] Take ove (more content not included)... Normal [facility] Physician Referralon 022 Physician Referral [id number]#1.00CD:127 Normal [facility] Urology Office/Clinic Noteon 09-04-2021 Urology [...] had hysterectomy about 10 yrs ago. previous ENVELOPE ADDRESSER advised her bladder had dropped a bit. [...] E&M of New Patient Moderate 45-59 Min [id number] Follow-up With When Contact Information pt will [...] Urnls Dip Stick Auto w/o Microscopy POC 04720 Your Care Team Attending Physician - MICHAEL [...] Urnls Dip Stick Auto w/o Microscopy POC 01976 (09/03/2021) Bilirubin Urine Dipstick - Negative Blood Urine Dipstick - Trace-intact Glucose Urine Dipstick - Negative Ketones Urine Dipstick - Negative Leukocytes Urine Dipstick - Negative Nitrite Urine Dipstick - Negative Protein Urine Dipstick - Negative Specific Korbel Urine Dipstick - 1.020 Urine Appearance Urine Dipstick - Clear Urine Color Urine Dipstick - Yellow Urobilinogen Urine Dipstick - Normal 0.2-1 EU/dl pH Urine Dipstick - 5 Medications and Immunizations Administered Not Given SARS-CoV-2 mRNA (tozinameran 5y-11y) vac, Postpone due to refusal Allergies No Known Allergies No Known Medication Allergies Normal [facility] CBC AUTO DIFFon 08-02-2021 BASO # 0.0 103/ul Normal 0.0-0.1 [facility] Comment on above: Performed By: #### C BC #### [facility] [address] [place] [address] Dr. Dioni Mayorga Basophils/100 WBC (Bld) 0.4 % Normal 0.2-2.0 [facility] Comment on above: Performed By: #### C BC #### [facility] [address] [place] [address] Dr. Dioni Mayorga EO # 0.1 103/ul Normal 0.0-0.7 [facility] Comment on above: Performed By: #### C BC #### [facility] [address] [place] [address] Dr. Dioni Mayorga Eosinophils/100 WBC (Bld) 1.0 % Normal 0.9-7.0 [facility] Comment on above: Performed By: #### C BC #### [facility] [address] [place] [address] Dr. Dioni Mayorga Erythrocyte distribution width (RBC) [Ratio] 13.4 % Normal 11.0-15.0 [facility] Comment on above: Performed By: #### C BC #### [facility] [address] [place] [address] Dr. Dioni Mayorga Hematocrit (Bld) [Volume fraction] 45.2 % Normal 36.0-48.0 [facility] Comment on above: Performed By: #### C BC #### [facility] [address] [place] [address] Dr. Dioni Mayorga Hemoglobin (Bld) [Mass/Vol] 14.5 g/dL Normal 12.0-16.0 [facility] Comment on above: Performed By: #### C BC #### [facility] [address] [place] [address] Dr. Dioni Mayorga IG # 0.02 10e3/ul Normal 0.00-0.03 [facility] Comment on above: Performed By: #### C BC #### [facility] [address] [place] [address] Dr. Dioni Mayorga IG % 0.3 % Normal 0.0-0.5 [facility] Comment on above: Performed By: #### C BC #### [facility] [address] [place] [address] Dr. Dioni Mayorga LYMPH # 2.7 103/ul Normal 1.2-3.8 [facility] Comment on above: Performed By: #### C BC #### [facility] [address] [place] [address] Dr. Dioni Mayorga Lymphocytes/100 WBC (Bld) 38.7 % Normal 20.5-60.0 [facility] Comment on above: Performed By: #### C BC #### [facility] [address] [place] [address] Dr. Dioni Mayorga MANUAL DIFF REQ NO Normal [facility] Comment on above: Performed By: #### C BC #### [facility] [address] [place] [address] Dr. Dioni Mayorga MCH (RBC) [Entitic mass] 28.4 pg Normal 26.7-34.0 [facility] Comment on above: Performed By: #### C BC #### [facility] [address] [place] [address] Dr. Dioni Mayorga MCHC (RBC) [Mass/Vol] 32.1 g/dL Normal 29.9-35.2 [facility] Comment on above: Performed By: #### C BC #### [facility] [address] [place] [address] Dr. Dioni Mayorga MCV (RBC) [Entitic vol] 88.5 fL Normal 81.0-99.0 [facility] Comment on above: Performed By: #### C BC #### [facility] [address] [address] [address] Dioni Mayorga MONO # 0.4 103/ul Normal 0.3-0.8 [facility] Comment on above: Performed By: #### C BC #### [facility] [address] [address] [address] Dioni Mayorga Monocytes/100 WBC (Bld) 6.2 % Normal 1.7-12.0 [facility] Comment on above: Performed By: #### C BC #### [facility] [address] [address] [address] Dioni Mayorga NEUT # 3.7 103/ul Normal 1.4-6.5 [facility] Comment on above: Performed By: #### C BC #### [facility] [address] [place] [address] Dr. Dioni Mayorga Neutrophils/100 WBC (Bld) 53.4 % Normal 43.0-75.0 [facility] Comment on above: Performed By: #### C BC #### [facility] [address] [place] [address] Dr. Dioni Mayorga Platelet mean volume (Bld) [Entitic vol] 10.4 fL Normal 9.5-13.5 [facility] Comment on above: Performed By: #### C BC #### [facility] [address] [place] [address] Dr. Dioni Mayorga PLT 340 103/ul Normal 150-450 [facility] Comment on above: Performed By: #### C BC #### [facility] [address] [place] [address] Dr. Dioni Mayorga RBC 5.11 106/ul Normal 4.20-5.40 [facility] Comment on above: Performed By: #### C BC #### [facility] [address] [place] [address] Dr. Dioni Mayorga WBC 6.9 103/ul Normal 4.0-11.0 [facility] Comment on above: Performed By: #### C BC #### [facility] [address] [address] [address] Dioni Mayorga FREE T3on 08-02-2021 FREE T3 1.49 pg/mlL Critically low 2.18-3.98 [facility] Comment on above: Performed By: #### F T3, LIPID, CMP, T7, TSH #### [facility] [address] [address] [address] Dioni Mayorga FREE THYROXINE INDEX T7on FTI 2.77 Normal 1.30-4.50 [facility] Comment on above: Performed By: #### F T3, LIPID, CMP, T7, TSH #### [facility] [address] [address] [address] Dioni Mayorga T3U 36.0 % Normal 30.0-39.0 [facility] Comment on above: Performed By: #### F T3, LIPID, CMP, T7, TSH #### [facility] [address] [place] [address] Dr. Dioni Mayorga T4 [Mass/Vol] 7.70 ug/dL Normal 4.80-13.90 [facility] Comment on above: Performed By: #### F T3, LIPID, CMP, T7, TSH #### [facility] [address] [address] [address] Dioni Mayorga GLYCOHEMOGLOBIN A1Con 2021 ADA RECOMMENDATION SEE BELOW Normal [facility] Comment on above: Result Comment: ADA RECOMMENDED LIMIT 4.0 - 6.0 ADA THERAPEUTIC TARGET < 7.0 ACTION SUGGESTED > 7.0 Performed By: #### A 1C #### [facility] [address] [place] [address] Dr. Dioni Mayorga Glucose [Mass/Vol] 111 mg/dL Normal [facility] Comment on above: Performed By: #### A 1C #### [facility] [address] [place] [address] Dr. Dioni Mayorga HbA1c (Bld) [Mass fraction] 5.5 % Normal 4.5-6.2 [facility] Comment on above: Performed By: #### A 1C #### [facility] [address] [address] [address] Dioni Mayorga LIPID PROFILEon 08-02-2021 CHOL-HDL RATIO NORM SEE BELOW Normal [facility] Comment on above: Result Comment: 3.3 - 4.4 LOW RISK 4.4 - 7.1 AVERAGE RISK 7.1 - 11.0 MODERATE RISK >11.0 HIGH RISK Performed By: #### F T3, LIPID, CMP, T7, TSH #### [facility] [address] [address] [address] Dioni Mayorga Cholesterol [Mass/Vol] 211 mg/dL Critically high <=200 [facility] Comment on above: Performed By: #### F T3, LIPID, CMP, T7, TSH #### [facility] [address] [address] [address] Dioni Mayorga Cholesterol in HDL [Mass/Vol] 48 mg/dL Normal 40-60 [facility] Comment on above: Performed By: #### F T3, LIPID, CMP, T7, TSH #### [facility] [address] [address] [address] Dioni Mayorga Cholesterol in LDL [Mass/Vol] 148.6 mg/dL Normal [facility] Comment on above: Performed By: #### F T3, LIPID, CMP, T7, TSH #### [facility] [address] [address] [address] Dioni Mayorga Cholesterol.total/Ch olesterol in HDL [Mass ratio] 4.4 {ratio} Normal [facility] Comment on above: Performed By: #### F T3, LIPID, CMP, T7, TSH #### [facility] [address] [address] [address] Dioni Mayorga HDL NORMAL > or = 60 mg/dl - LOW CARDIOVASCULAR RISK <40 mg/dl - HIGH CARDIOVASCULAR RISK Normal [facility] Comment on above: Performed By: #### F T3, LIPID, CMP, T7, TSH #### [facility] [address] [address] [address] Dioni Mayorga LDL CALC NORMAL SEE BELOW Normal [facility] Comment on above: Result Comment: <100 mg/dl OPTIMAL 100 - 129 mg/dl NEAR OR ABOVE OPTIMAL 130 - 159 mg/dl BORDERLINE HIGH 160 - 189 mg/dl HIGH >190 mg/dl VERY HIGH Performed By: #### F T3, LIPID, CMP, T7, TSH #### [facility] [address] [address] [address] Dioni Mayorga Triglyceride [Mass/Vol] 72 mg/dL Normal <=150 [facility] Comment on above: Performed By: #### F T3, LIPID, CMP, T7, TSH #### [facility] [address] [address] [address] Dioni Mayorga VLDL CALC 14.4 mg/dL Normal [facility] Comment on above: Performed By: #### F T3, LIPID, CMP, T7, TSH #### [facility] [address] [address] [address] Dioni Mayorga PROF 14(COMP METB)on 022 Albumin [Mass/Vol] 3.5 g/dL Normal 3.4-5.[address] [facility] Comment on above: Performed By: #### F T3, LIPID, CMP, T7, TSH #### [facility] [address] [address] [address] Dioni Mayorga Albumin/Globulin [Mass ratio] 1.0 {ratio} Normal [facility] Comment on above: Performed By: #### F T3, LIPID, CMP, T7, TSH #### [facility] [address] [address] [address] Dioni Mayorga ALP [Catalytic activity/Vol] 62 U/L Normal 46-116 [facility] Comment on above: Performed By: #### F T3, LIPID, CMP, T7, TSH #### [facility] [address] [address] [address] Dioni Mayorga ALT [Catalytic activity/Vol] 20 U/L Normal 14-59 [facility] Comment on above: Performed By: #### F T3, LIPID, CMP, T7, TSH #### [facility] [address] [address] [address] Dioni Mayorga Anion gap [Moles/Vol] 14.0 mmol/L Normal [facility] Comment on above: Performed By: #### F T3, LIPID, CMP, T7, TSH #### [facility] [address] [address] [address] Dioni Mayorga AST [Catalytic activity/Vol] 12 U/L Critically low 15-37 [facility] Comment on above: Performed By: #### F T3, LIPID, CMP, T7, TSH #### [facility] [address] [address] [address] Dioni Mayorga Bilirubin [Mass/Vol] 0.4 mg/dL Normal 0.2-1.0 [facility] Comment on above: Performed By: #### F T3, LIPID, CMP, T7, TSH #### [facility] [address] [address] [address] Dioni Mayorga Calcium [Mass/Vol] 8.7 mg/dL Normal 8.5-10.[address] [facility] Comment on above: Performed By: #### F T3, LIPID, CMP, T7, TSH #### [facility] [address] [address] [address] Dioni Mayorga Chloride [Moles/Vol] 105 mmol/L Normal 98-107 [facility] Comment on above: Performed By: #### F T3, LIPID, CMP, T7, TSH #### [facility] [address] [address] [address] Dioni Mayorga CO2 [Moles/Vol] 26.4 mmol/L Normal 21.0-32.0 [facility] Comment on above: Performed By: #### F T3, LIPID, CMP, T7, TSH #### [facility] [address] [address] [address] Dioni Mayorga Creatinine [Mass/Vol] 0.83 mg/dL Normal 0.55-1.02 [facility] Comment on above: Performed By: #### F T3, LIPID, CMP, T7, TSH #### [facility] [address] [place] [address] Dr. Dioni Mayorga EGFR-AF [facility] >60 Normal >=60 [facility] Comment on above: Performed By: #### F T3, LIPID, CMP, T7, TSH #### [facility] [address] [address] [address] Dioni Mayorga EGFR-NON AF [facility] >60 Normal >=60 [facility] Comment on above: Performed By: #### F T3, LIPID, CMP, T7, TSH #### [facility] [address] [address] [address] Dioni Mayorga Globulin (S) [Mass/Vol] 3.5 g/dL Normal [facility] Comment on above: Performed By: #### F T3, LIPID, CMP, T7, TSH #### [facility] [address] [address] [address] Dioni Mayorga Glucose [Mass/Vol] 78 mg/dL Normal 74-106 [facility] Comment on above: Performed By: #### F T3, LIPID, CMP, T7, TSH #### [facility] [address] [place] [address] Dr. Dioni Mayorga Potassium [Moles/Vol] 4.4 mmol/L Normal 3.5-5.1 [facility] Comment on above: Performed By: #### F T3, LIPID, CMP, T7, TSH #### [facility] [address] [address] [address] Dioni Mayorga Protein [Mass/Vol] 7.0 g/dL Normal 6.4-8.2 [facility] Comment on above: Performed By: #### F T3, LIPID, CMP, T7, TSH #### [facility] [address] [address] [address] Dioni Mayorga Sodium [Moles/Vol] 141 mmol/L Normal 136-145 [facility] Comment on above: Performed By: #### F T3, LIPID, CMP, T7, TSH #### [facility] [address] [address] [address] Dioni Mayorga Urea nitrogen [Mass/Vol] 16.0 mg/dL Normal 7.0-18.0 [facility] Comment on above: Performed By: #### F T3, LIPID, CMP, T7, TSH #### [facility] [address] [place] [address] Dr. Dioni Mayorga Urea nitrogen/Creatinine [Mass ratio] 19.3 mg/mg Normal [facility] Comment on above: Performed By: #### F T3, LIPID, CMP, T7, TSH #### [facility] [address], [place] [address] Dr. Dioni Mayorga TSHon 08-02-2021 TSH 1.339 uIU/mL Normal 0.358-3.740 [facility] Comment on above: Performed By: #### F T3, LIPID, CMP, T7, TSH #### [facility] [address], [place] [address] Dr. Dioni Mayorga Vital Signs Date Time Vital Sign Value Performing Clinician Faci lity 09-03-2021 08:51-0400 Blood Pressure Location MICHAEL NUGENT [facility] 09-03-2021 08:51-0400 Diastolic blood pressure 96 mm[Hg] MICHAEL NUGENT [facility] 09-03-2021 08:51-0400 Heart rate 106 /min MICHAEL NUGENT [facility] 09-03-2021 08:51-0400 Systolic blood pressure 138 mm[Hg] MICHAEL NUGENT [facility] Encounters Encounter Date Encounter Type Care Provider Facility Start: 09-13-2023 End: 09-13-2023 ambulatory Harish Cannon MD Facility:[facility] Start: 05-17-2023 End: 05-17-2023 ambulatory Harish Cannon MD Facility:[facility] Start: 04-19-2023 End: 04-19-2023 ambulatory Harish Cannon MD Facility:[facility] Start: 01-11-2023 End: 01-11-2023 ambulatory Harish Cannon MD Facility:[facility] Start: 12-07-2022 End: 12-07-2022 ambulatory Harish Cannon MD Facility:[facility] Start: 11-23-2022 End: 11-23-2022 ambulatory Harish Cannon MD Facility:[facility] Start: 11-02-2022 End: 11-02-2022 ambulatory Harish Cannon MD Facility:[facility] Start: 03-02-2022 End: 03-02-2022 ambulatory SALVADOR GROSS Facility:[facility] Start: 12-15-2021 End: 12-15-2021 ambulatory SALVADOR GROSS Facility:[facility] Start: 12-09-2021 End: 12-09-2021 ambulatory SALVADOR GROSS Facility:[facility] Start: 09-17-2021 End: 09-18-[address] MONIKA MATTHEWS Facility:[facility] Start: 09-03-[address] MONIKA MATTHEWS Facility :[facility] Start: 09-03-2021 End: 09-03-2021 Patient encounter procedure MICHAEL NUGENT [facility] Start: 08-05-2021 Encounter for genera l adult medical examination without abnormal findings DR MONIKA MATTHEWS [facility] Start: 08-02-2021 End: 08-03-[address] MONIKA MATTHEWS Facility:[facility] Start: 08-02-2021 End: 08-03-2021 Encounter for general adult medical examination without abnormal findings DR MONIKA MATTHEWS Facility:[facility] Procedures Date Procedure Procedure Detail Performing Clinician Hysterectomy MICHAEL NUGENT Immunizations Immunization Date Immunization Notes Care Provider Fa roly NEGATED: Highlighted row has not occurred!09-03-2021 SARS-CoV-2 mRNA (tozinameran 5y-11y) vaccine MICHAEL NUGENT [facility] Payers Date Payer Category Payer Unknown [id number] 2022 Unknown 2019 Unknown [id number] 1970 Unknown [id number] 2.16.84 [id number] 1970 Unknown [id number] 2.16.84 [id number] 1970 Unknown [id number] 2.16.84 [id number] 1970 Unknown [id number] 2.16.84 [id number] 1970 Unknown [id number] 2.16.84 [id number] 1972 Unknown [id number] 2.16.84 0.1.262540.3.579.2.593 1970 Unknown [id number] 2.16. 840.1.466599.3.579.2.196 1970 Unknown [id number] 2.16. 840.1.732200.3.579.2.196 1970 Unknown [id number] 2.16. 840.1.332693.3.579.2.196 1972 Unknown [id number] 2.16. 840.1.738047.3.579.2.196 1970 Unknown [id number] 2.16. 840.1.591492.3.579.2.196 1970 Unknown [id number] 2.16. 840.1.551626.3.579.2.196 1970 Unknown [id number] 2.16. [id number] Social History Date Type Detail Facility Start: 09-03-2021 Tobacco smoking status Never s moked tobacco (finding) [facility] Tobacco smoking status Never [facility] Neil Sex Assigned At Female [facility] Functional Status Date Assessment Result Facility 09-03-2021 Functional Status N/A [facility] Discharge instructions 09-03-2021 Note Date & [...] nerve stimulation). For women, using a medical chemist to prevent urine leaks. This is a [...] right after experiencing incontinence. General instructions Take xejd-dbe-aodbtxx and prescription medicines only as told by [...] 03/11/2005 Document Revised: 02/11/2018 Document Reviewed: 05/13/2017 [employer] Patient Education 2020 [employer]. Follow Up Care 08/06/2021 08:10:07 With:pt will call once she decides how she would like to proceed Address:Unknown When: Unknown [facility] Evaluation + Plan note Note Date & Type Note Facility Evaluation + Plan note Future Appointments Appointment Date:09/17/2021 08:30:00 AM Scheduled Provider: Location:[facility] Appointment Type:URO Nurse Visit [facility] Hospital course Narrative Note Date & Type Note Facility Hospital course Narrative No data available for this section [facility] [facility] Progress note Note Date & Type Note Facility Progress note No data available for this section [facility] Summary Purpose Family History No Family History Records FoundNo Family History Records FoundNo Family History Records Found Advance Directives No Advanced Directives Records FoundNo Advanced Directives Records FoundNo Advanced Directives Records Found Additional Source Comments Care Team (unrecognized sect ion and content) Personnel Name: Monika Matthews MD Address: [address] [place] [address] INFORMATION SOURCE (unrecogn ized section and content) DATE CREATED AUTHOR 09/18/2021 [facility] DATE CREATED AUTHOR AUTHOR'S ORGANIZ ATION 03/02/2022 [facility] DATE CREATED AUTHOR AUTHOR'S ORGANIZ ATION 09/28/2023 [facility] FOR RECORDS PERTAINING TO PATIENTS WHO [...] PRIMARY CLINICAL RECORDS. [facility]. provides no warranty or guarantee of the accuracy or completeness of information in this document.
[2024-07-31] MEDS: IOHEXOL 240 MG/ML - 10 ML VIAL INJ (11:42)
[2024-07-31] MEDS: LIDOCAINE HCL 2% 400 MG/20 ML MDV INJ (11:42)
[2024-07-31] MEDS: METHYLPREDNISOLONE ACETATE 40 MG/ML VIAL INJ (11:43)
[2024-07-31] MEDS: BUPIVACAINE HCL 0.25% PF 25 MG/10 ML VIAL 2 ML INJ (11:43)
[2024-07-31 11:46] VITALS: BP 256/132; PULSE 97; O2SAT 92
--- NOTE | 2024-07-31 11:55 | W.PM.PROCNOT ---
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 The skin overlying the area was prepped and draped in standard sterile fashion using alcohol.? A 25-gauge needle was inserted towards the left sacroiliac joint under direct fluoroscopic imaging.? Needle tip was advanced until the joint was encountered.? We instilled a total of 2 mL of solution.? Postoperatively needles were removed.? The patient tolerated the procedure well without complication.? The patient reported reduction in pain symptoms postoperatively. Anesthesia: Local Surgeon: Harish Cannon Pathology: none sent Condition: stable Disposition: no change
== END 2024-07-31 11:52 | disposition home or self-care (01) ==
LOC: SURGOUT 10:45
PROVIDERS: PCP Family Medicine; Visit Provider Anesthesiology
DX: M46.1 Sacroiliitis, not elsewhere classified (principal); M53.3 Sacrococcygeal disorders, not elsewhere classified
CPT/HCPCS: 27096; J0665; J1010; Q9966

== ENCOUNTER 2024-08-10 07:41 | Outpatient (OUT) | payer BC, SELFPAY ==
--- OUTSIDE RECORDS SUMMARY | 2024-06-30 11:11 | XMS_ITS ---
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 [employer] Material Name Role Phone Santo Dykes Primary Care Provider REASON FOR VISIT refill claritin Medications Medication SIG (Take, Route, Frequency, Duration) Notes Start Date End Date Status Claritin-D 12 Hour 5-120 MG 1 tablet Orally every 12 hrs for 30 days 06/30/2024 Active Encounters Encounter Location Date Provider Diagnosis [facility] [address] [place] [address] 06/30/2024 Santo Dykes Plan Of Treatment Medication Medication Name Sig Start Date Stop Date Notes Claritin-D 24 Hour 10-240 MG TAKE 1 TABL ET BY MOUTH EVERY DAY PRN Claritin-D 12 Hour 5-120 MG 1 tablet Ora lly every 12 hrs for 30 days 06/30/2024 Next Appt Details Provider Name:Santo Darcie Dykes, 04:45:00 PM, [address] [place], [address], Progress Notes * Barbara BACA LDOB:[birth year] (53 yo F)Acc No.[id number]:06/30/2024 Patient: Christophe LIDATRINIDADBarbara :1970 A ge:53 Y S ex:Female Address:[place] [address] * Refills Stop Claritin-D 24 Hour Tablet Extended Release 24 Hour, 10-240 MG, TAKE 1 TABLET BY MOUTH EVERY DAY Start Claritin-D 12 Hour Tablet Extended Release 12 Hour, 5-120 MG, Orally, 60, 1 tablet, every 12 hrs, 30 days, Refills=11 * true * Date: Generated for Ho massey/Radha/Natividaditting on: 0 08/10/2024 07:44 AM EDT
--- OUTSIDE RECORDS SUMMARY | 2024-07-13 13:01 | XMS_ITS ---
Author Organization [facility] in [place] Address [address] [place] [address] Care Team Providers Care Director Biology Name Role Phone JaniaSanto Primary Care Provider REASON FOR VISIT Semaglutide to Buderer Encounters Encounter Location Date Provider Diagnosis [facility] [address] [place] [phone] 07/13/2024 Santo Jania Plan Of Treatment Next Appt Details Provider Name:Santo Dykes, 04:45:00 PM, [address] [place], [address], Progress Notes * Barbara BACA LDOB:[birth year] (53 yo F)Acc No.[id number]:07/13/2024 Patient: Barbara PAZ :1970 A ge:53 Y S ex:Female Address:[address] [place] [address] * true * Date: Generated for Printi ng/Faxing/eTransmitting on: 0 08/10/2024 07:43 AM EDT
--- OUTSIDE RECORDS SUMMARY | 2024-08-10 07:44 | XMS_ITS | Clinical Summary ---
Author Organization [facility] Address [address] [place] [address] Care Team Providers Care Farm Hand Name Role Phone Unavailable Primary Care Provider Unavailabl e Social History Tobacco Use Types Packs/Day Years Used Date Smoking Tobacco: Never Assessed Comments Unknown Sex and Gender Information Value Date Recorded Sex Assigned at Not on file Legal Sex Female 9:30 PM EDT Gender Identity Not on file Sexual Orientation Not on file Last Filed Vital Signs Vital Sign Reading Time Taken Comments Blood Pressure 122/86 12/13/2018 12:00 PM EDT Pulse - - Temperature - - Respiratory Rate - - Oxygen Saturation - - Inhaled Oxygen Concentration - - Weight 98.4 kg (217 lb) 12/13/2018 12:00 PM EDT Height 162.6 cm (5' 4 ) 12/13/2018 12:00 PM EDT Body Mass Index 37.25 12/13/2018 12:00 PM EDT Plan of Treatment Not on file
--- OUTSIDE RECORDS SUMMARY | 2024-08-10 07:44 | XMS_ITS | Patient Health Record ---
Author Organization [facility] [place] Address [address] [place] [address] Care Team Providers Care Training And Development Officer Name Role Phone Santo Dykes Primary Care Provider [phone] Allergies No Known Allergies Results Component Value Reference Range Notes XR hip LT min 2V Reviewed date:12/12/2023 10:53:55 PM Interpretation: Performing Lab: Notes/Report: Source Facility: [place] [address] XRay Report Signed Patient: BARBARA BACA MR#: [id number] : 1970 Acct:[id number] Age/Sex: 53 / F ADM Date: 12/07/23 Loc: LAB Attending Dr: Eufemia Roca M.D. Ordering Physician: Eufemia Roca M.D. Date of Service: 12/07/23 Procedure(s): XR hip LT min 2V Accession Number(s): [id number] cc: Romero Dykes M.D.; Eufemia Roca M.D. [address] [address] Patient Name: BARBARA BACA MRN: [id number] date: 1970 Sex: F Assigned Patient Location: LAB Current Patient Location: SURGOUT Accession/Order Number: [id number] Exam Date: 12/07/2023 13:40 Report Date: 12/12/2023 06:55 At the request of: EUFEMIA ROCA Procedure: XR hip LT min 2V PROCEDURE: XR hip LT min 2V HISTORY: Left Hip Pain COMPARISON: None. FINDINGS: BONES:Slight narrowing of the superior aspect of the left hip joint space. Small degenerative osteophyte along the superior and posterior rim of the acetabulum. Unremarkable femoral head. SOFT TISSUES:No visible soft tissue swelling. EFFUSION:None visible. OTHER: Negative. XR/XR hip LT min 2V IMPRESSION: 1. 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 Electronically authenticated by: ANUPAM RODARTE Date: 12/12/2023 06:55 Dictated By: Anupam Rodarte M.D. Signed By: 12/12/23657 DD/ 4 TD/TT: Ply Bander: [place] [address] XRay Report Signed Patient: CARLY BACA MR#: [id number] : 1970 Acct:[id number] Age/Sex: 53 / F ADM Date: 12/07/23 Loc: LAB Attending Dr: Lisa Roca M.D. Ordering Physician: Eufemia Roca M.D. Date of Service: 12/07/23 Procedure(s): XR hip LT min 2V Accession Number(s): [id number] cc: Romero Dykes M.D. ; Eufemia Roca M.D. [facility] [place] [id number] Patient Name: BARBARA BACA MRN: [id number] date: 1970 Sex: F Assigned Patient Location: LAB Current Patient Loca tion: SURGOUT Accession/Order Numb er: [id number] Exam Date: 13:40 Report Date: 12/12/2023 06:55 At the request of: EUFEMIA ROCA Procedure: XR hip LT min 2V PROCEDURE: XR hip LT min 2V HISTORY: Left Hip Pain COMPARISON: None. FINDINGS: BONES:Slight narrowi ng of the superior aspect of the left hip joint space. Small degenerative o steophyte along the superior and posterior rim of the acetabulum. Unremark able femoral head. SOFT TISSUES:No visi ble soft tissue swelling. EFFUSION:None visible. OTHER: Negative. X R/XR hip LT min 2V IMPRESSION: 1. 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 Electronically authe nticated by: ANUPAM RODARTE Date: 12/12/2023 06:55 Dictated By: Anupam Rodarte M.D. Signed By: 12/12/23657 DD/ 4 TD/TT: Ply Bander: MM tomosynthesis screening B I Reviewed date:10/24/2023 07:53:57 PM Interpretation: Performing Lab: Notes/Report: Source Facility: [place] [address] Mammography Report Signed Patient: BARBARA BACA MR#: [id number] : 1970 Acct:[id number] Age/Sex: 53 / F ADM Date: 10/22/23 Loc: MAMMO Attending Dr: Romero Dykes M.D. Ordering Physician: Romero Dykes M.D. Results: Date of Service: 10/22/23 Follow Up: Procedure(s): MM tomosynthesis screening BI Accession Number(s): [id number] cc: Romero Dykes M.D. Patient Name: BARBARA BACA MR#: [id number] : 1970 Exam Date: 10/22/2023 Ordering Doctor: DR Romero Dykes . RADIOLOGY REPORT PROCEDURE: MM TOMOSYNTHESIS SCREENING BI COMPARISON: MM TOMOSYNTHESIS SCREENING BI, 10/20/2022. MG MAMM SCREEN 3D DUSITN CAD, 09/17/2021. MG MAMM SCREEN 3D DUSTIN CAD, 05/08/2020. MG MAMM DUSTIN SCRN W CAD DIG, 06/21/2013. INDICATIONS: Screening Calculator Name NCI Breast Cancer Risk Assessment Tool 5 Year Breast Cancer Risk 1.10% Lifetime Breast Cancer Risk 9.30% Personal Breast Cancer No Personal Ovarian Cancer No Treatments None Family Cancers None LOCATION: [facility] BREAST COMPOSITION: There are scattered areas of fibroglandular density. FINDINGS: DIAGNOSTIC CATEGORY 1--NEGATIVE. RIGHT BREAST: No significant suspicious finding. No significant change has occurred. LEFT BREAST: No significant suspicious finding. No significant change has occurred. RECOMMENDATIONS: ROUTINE MAMMOGRAM AND CLINICAL EVALUATION IN 12 MONTHS. PLEASE NOTE: A NORMAL MAMMOGRAM DOES NOT EXCLUDE THE POSSIBILITY OF BREAST CANCER. A CLINICALLY SUSPICIOUS PALPABLE LUMP SHOULD BE BIOPSIED. Dictated by: Anupam Rodarte M.D. on 10/22/2023 at 16:41 Approved by: Anupam Rodarte M.D. on 10/22/2023 at 16:43 Dictated By: Anupam Rodarte M.D. Signed By: 10/22/231643 DD/ 42 TD/TT: Ply Bander: [place] [address] Mammography Report Signed Patient: CARLY BACA MR#: [id number] : 1970 Acct:[id number] Age/Sex: 53 / F ADM Date: 10/22/23 Loc: MAMMO Attending Dr: Romero Dykes M.D. Ordering Physician: Romero Dykes M.D. Results: Date of Service: 08/08 Follow Up: Procedure(s): MM anna osynthesis screening BI Accession Number(s): [id number] cc: Romero Dykes M.D. Patient Name: BARBARA BACA MR#: [id number] : 1970 Exam Date: 10/22/2023 Ordering Doctor: DR Romero Dykes . RADIOLOGY REPORT PROCEDURE: MM TOMOSY NTHESIS SCREENING BI COMPARISON: MM TOMOS YNTHESIS SCREENING BI, 10/20/2022. MG MAMM SCREEN 3D DUSTIN CAD, 09/17/2021. MG MAMM SCREEN 3D DUSTIN CAD, 05/08/2020. MG MAMM DUSTIN SCRN W CAD DIG, 06/21/2013. INDICATIONS: Screening Calculator Name NCI Breast Cancer Risk Assessment Tool 5 Year Breast Cancer Risk 1.10% Lifetime Breast Canc er Risk 9.30% Personal Breast Cancer No Personal Ovarian Cancer No Treatments None Family Cancers None LOCATION: [facility] BREAST COMPOSITION: There are scattered areas of fibroglandular density. FINDINGS: DIAGNOSTIC CATEGORY 1--NEGATIVE. RIGHT BREAST: No sig nificant suspicious finding. No significant change has occurred. LEFT BREAST: No sign ificant suspicious finding. No significant change has occurred. RECOMMENDATIONS: ROUTINE MAMMOGRAM AN D CLINICAL EVALUATION IN 12 MONTHS. PLEASE NOTE: A MAXWELL L MAMMOGRAM DOES NOT EXCLUDE THE POSSIBILITY OF BREAST CANCER. A CLINICALLY SUSPICIOUS PALPABLE LUMP SHOULD BE BIOPSIED. Dictated by: Anupam Rodarte M.D. on 10/22/2023 at 16:41 Approved by: Anupam Rodarte M.D. on 10/22/2023 at 16:43 Dictated By: Anupam Rodarte M.D. Signed By: 10/22/231643 DD/ 42 TD/TT: Ply Bander: Reason For Referral No Information Medications Medication SIG (Take, Route, Frequency, Duration) Notes Start Date End Date Status IBU-200 200 MG 4 tabs Orally BID Active Adipex-P 37.5 MG 1 tablet before gunnar kfast Orally Once a day 07/13/2024 Active Gabapentin 100 MG 1-2 capsule Orally B ID, PRN Active Semaglutide 2.268 mg/0.63 mL 2.268 mg/0.63 mL 0.63 mL Subcutaneous Once weekly for 30 days 12/20/2023 Active Meloxicam 7.5 MG 1 tablet Orally twic e daily PRN 04/28/2024 Active valACYclovir HCl 1 GM 1 tablet Orally ti d for 10 days 02/28/2024 Active Baclofen 10 MG 1 tablet as needed O rally at HS PRN Active Claritin-D 12 Hour 5-120 MG 1 tablet Orally every 12 hrs for 30 days 06/30/2024 Active CeleBREX 200 MG 1 capsule with food Orally Twice Daily Active Social History Tobacco Use: Social History Observation Description Date Details (start date - stop date) Never Smoker NA - NA Tobacco Use/Smoking Question Answer Notes Patient is a nonsmoker Alcohol Screen (Audit-C) Question Answer Notes Did you have a drink contain ing alcohol in the past year? Yes How often did you have 6 or more drinks on one occasion in the past year? Never (0 point) How many drinks did you have on a typical day when you were drinking in the past year? 3 or 4 drinks (1 point) How often did you have a dri nk containing alcohol in the past year? Monthly (2 points) Points 3 Interpretation Positive AUDIT-C (Standard) Question Answer Notes Did you have a drink containing alcohol in the p ast year? No Points 0 Interpretation Negative Problems Problem Type SNOMED Code ICD Code Onset Dates Problem Status W/U Status Risk Notes Problem 43871211 Other intervertebral disc degeneration, lumbosacral region (M51.37) Active confirmed Problem Lumbar radiculopathy (404329594) Lumbar radiculopathy (M54.16) Active confirmed Problem Acute sinusitis (J01.90) Active confirmed Problem Well adult (109018884) Well adult (Z00.00) Active confirmed Problem Cellulitis (018012248) Cellulitis (L03.90) Active confirmed Vital Signs Blood pressure diastolic 90 mm Hg 07/13/2024 Height 62 in 07/13/2024 Blood pressure systolic 116 mm Hg 07/13/2024 Weight 245.2 lbs 07/13/2024 BMI 44.84 kg/m2 07/13/2024 Encounters Encounter Location Date Provider Diagnosis [facility] [address] [place] [address] 01/26/2024 Santo Dykes Acute non-recurrent sinusitis, unspecified location J01.90 and Nasal congestion R09.81 [facility] [address] [place] [address] 07/13/2024 Santo Dykes Well adult Z00.00 [facility] [address] [facility] [place] [address] 08/26/2023 Santo Dykes [facility] [address] [facility] [place] [address] 09/27/2023 Santo Dykes [facility] [address] [facility] [place] [address] 10/21/2023 Santo Dykes [facility] [address] [facility] [place] [address] 10/24/2023 Santo Dykes [facility] [address] [place] [address] 12/20/2023 Santo Dykes [facility] [address] [facility] [place] [address] 01/24/2024 Santo Dykes [facility] [address] [facility] [place] [address] 02/01/2024 Santo Dykes Acute non-recurrent sinusitis, unspecified location J01.90 [facility] [address] [facility] [place] [address] 02/28/2024 Santo Dykes [facility] [address] [facility] [place] [address] 04/28/2024 Santo Dykes [facility] [address] [facility] [place] [address] 06/30/2024 Santo Dykes [facility] [address] [facility] [place] [address] 07/13/2024 Santo Dykes Assessments Encounter Date Diagnosis (ICD Code) Assessment Notes Treatment Notes Treatment Clinical Notes Section Notes 01/26/2024 Acute non-recurrent sinusitis, unspecified location (ICD-10 - J01.90) Rest and drink more liquids, especially water. You may use a humidifier or vaporizer to help keep the drainage moist. Owbf-oyq-wsiglce Nasal Saline may help the stuffy and runny nose. Use Ibuprofen and or Tylenol as needed for fever, chills, body aches or pain. Children 5 years old should not be given eviz-zxp-qknvtba cough and cold medications such as guaifenesin and dextromethorphan. If you're over age 5, you may try vafq-xdm-ahpqrqd cold medications such as guaifenesin and dextromethorphan, or multi-symptom cold reliever such as Dayquil to help reduce the symptoms. Antibiotics have been prescribed. You should take these until completed and follow the directions. Antibiotics can sometimes cause upset stomach, and in rare cases, serious allergic reactions or serious gastrointestinal problems. If you start having severe abdominal pain, severe vomiting, or bloody diarrhea, you should be reevaluated by your physician or urgent care immediately. Follow up with your Primary Care Provider or return to clinic if symptoms do not improve within 3-5 days 07/13/2024 Well adult (ICD-10 - Z00.00) 02/01/2024 Acute non-recurrent sinusitis, unspecified location (ICD-10 - J01.90) 01/26/2024 Nasal congestion (ICD-10 - R09.81) Plan Of Treatment Pending Test Test Name Order Date CMP (COMPLETE METABOLIC PANEL) 4 HEMOGLOBIN A1C (GLYCO) 08/02/2023 LIPID PANEL (CHOL/TRIG/HDL/LDL) 08/02/19 24 CBC WITH DIFF 08/02/2023 CBC AUTO DIFF 09/02/2022 GLYCOHEMOGLOBIN A1C 09/02/2022 LIPID PROFILE 09/02/2022 TSH 09/02/2022 MG MAMM SCREEN 3D DUSTIN CAD 10/14/2022 MRI LSPINE WO CON 09/02/2022 XR LSPINE 2_3 VIEWS 09/02/2022 Next Appt Details Provider Name:Santo Dykes, 04:45:00 PM, [address] [place], [address], Insurance Providers Payer Name Payer Address Payer Phone Subscriber Number Group Number Insured Name Patient Relationship to Insured Coverage Start Date Coverage End Date [employer] PPO PLUS LOCAL PLAN [address] [place] [address] [id number] Barbara Baca Self - patient is the insured 3 Medications Administered Medication Instructions Date of Administration Dosage Notes Kenalog-40 04/23/2023 120 mg 120 Ketorolac Tromethamine 04/23/2023 60 mg 60 Medical (General) History Medical History History ICD Code Ankle edema R60.0 Fatigue R53.83 COVID-19 079.89 COVID U07.1 Surgical History Surgery Date(Month/Year) hysterectomy D/C nerve ablasion 12/2023
--- OUTSIDE RECORDS SUMMARY | 2024-08-10 07:46 | XMS_ITS | CCD ---
Author Organization [facility] CliniSysd Care Team Providers Care [facility]it System Director Name Role Phone Mnoika Matthews Primary Care Physician DR MONIKA MATTHEWS [...] Unavailable Davis GARNICA, Harish Olivier Attending Unavailable Davis GARNICA, Harish Olivier Attending Unavailable Davis GARNICA, Harish Olivier Attending Unavailable Medications Current [...] Value Interpretation Reference Range Facility Covid-19 PCR ([facility])on 02-15 SARS-CoV-2 (COVID-19) RNA YAMILET+probe Ql (Unsp spec) Not detected Normal NOT DETECTED [facility] Comment on above: [...] for this test is supported by the Ag Service Manager of Health and Human Service's declaration [...] be used). Performed By: #### C VDTB ####[facility] [id number] [address]Dr. Dioni Mayorga INFLUENZA A AND B AGon 03-02 [facility] SEE BELOW Normal [facility] Comment on above: Result Comment: Nega tive for Flu A protein angiten. Infection due to Flu A cannot be ruled out. Flu A angiten in the sample may be below the detection limit of the test. Performed By: #### I NFLUAB #### [facility] [address] [place] [address] Dr. Dioni Mayorga [facility] SEE BELOW Normal [facility] Comment on above: Result Comment: Nega tive for Flu B protein antigen. Infection due to Flu B cannot be ruled out. Flu B antigen in the sample may be below the detection limit of the test. Performed By: #### I NFLUAB #### [facility] [address] [place] [address] Dr. Dioni Mayorga INFLUENZA A AG Negative Normal NEGATIVE SEE COMMENT [facility] Comment on above: Performed By: #### I NFLUAB #### [facility] [address] [place] [address] Dr. Dioni Mayorga INFLUENZA B AG Negative Normal NEGATIVE SEE COMMENT [facility] Comment on above: Performed By: #### I NFLUAB #### [facility] [address] [place] [address] Dr. Dioni Mayorga ASYMPTOMATIC COVID-19 ANTIGE Non 12-15-2021 EUA Statement SEE BELOW Normal [facility] Comment on above: Result Comment: This [...] sooner. Performed By: #### C VDAGA #### [facility] [address] [place] [address] Dr. Dioni Mayorga SARS-CoV-2 (COVID-19) RNA YAMILET+probe Ql (Unsp spec) Negative Normal NEGATIVE [facility] Comment on above: Result Comment: Nega tive results are presumptive. They do not preclude infection and should not be used as the sole basis for treatment decisions. Additional confirmatory testing by a molecular method should be considered. Performed By: #### C VDAGA #### [facility] [address] [place] [address] Dr. Dioni Mayorga Covid-19 PCR ([facility])on 11-16 SARS-CoV-2 (COVID-19) RNA YAMILET+probe Ql (Unsp spec) Detected Critically abnormal NOT DETECTED [facility] Comment on above: Result Comment: This test is not yet approved or cleared by the [place] FDA. When there are no FDA-approved or cleared tests available, and other criteria are met, FDA can make tests available under an emergency access mechanism called an Emergency Use Authorization (EUA). The EUA for this test is supported by the [place] of Health and Human Service's declaration that [...] longer be used). Performed By: #### C [facility] ####[facility] [id number] [place], [place] [address]LmFrieda Mayorga MG MAMM SCREEN 3D DUSTIN CADon 09-17-2021 MG MAMM SCREEN 3D DUSTIN CAD Patient: BARBARA BACA Exam Date: 09/17/2021 : 1970 Gender:F Ordering : DR MONIKA MATTHEWS . Admission #: [id number] Family : Order #: [id number] CLICK HERE TO VIEW EXAM RADIOLOGY REPORT PROCEDURE: MAMMOGRAM SCREENING 3D BILATERAL CAD COMPARISON: MG MAMM SCREEN 3D DUSTIN CAD, 05/08/2020. MAMMO POST BIOPSY RIGHT, 01/04/2018. INDICATIONS: Screening mammography Calculator Name NCI Breast Cancer Risk Assessment Tool 5 Year Breast Cancer Risk 1.00% Lifetime Breast Cancer Risk 9.60% Personal Breast Cancer No Personal Ovarian Cancer No Treatments None Family Cancers None LOCATION: [facility] BREAST COMPOSITION: Scattered areas fibroglandular [...] Rodarte M.D. on 09/17/2021 at 13:13 Normal [facility] Formson 09-04-2021 Forms [id number] #1.00CD:[address] [facility] Patient Educationon 09-05-19 22 Patient Education [...] Take ove (more content not included)... Normal [facility] Physician Referralon 022 Physician Referral [id number] 0#1.00CD:[address] [facility] Urology Office/Clinic Noteon 09-04-2021 Urology Office/Clinic [...] had hysterectomy about 10 yrs ago. 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 Comment on above: Result Comment: Elec tronically Signed By: MICHAEL NUGENT PA-C\.br\Date and Time Signed: 09/04/21 09:42 EDT Ambulatory Visit Summaryon 0 09-03-2021 Ambulatory Visit Summary BARBARA BACA :1970 Visit Date:09/03/2021 Ambulatory Visit Instructions Your Diagnosis Stress incontinence Tests Performed Urnls Dip Stick Auto w/o Microscopy POC 02233 Your Care Team Attending Physician - MICHAEL [...] Urnls Dip Stick Auto w/o Microscopy POC 77410 (09/03/2021) Bilirubin Urine Dipstick - Negative Blood Urine Dipstick - Trace-intact Glucose Urine Dipstick - Negative Ketones Urine Dipstick - Negative Leukocytes Urine Dipstick - Negative Nitrite Urine Dipstick - Negative Protein Urine Dipstick - Negative Specific [place] Urine Dipstick - 1.020 Urine Appearance Urine Dipstick - Clear Urine Color Urine Dipstick - Yellow Urobilinogen Urine Dipstick - Normal 0.2-1 EU/dl pH Urine Dipstick - 5 Medications and Immunizations Administered Not Given SARS-CoV-2 mRNA (tozinameran 5y-11y) vac, Postpone due to refusal Allergies No Known Allergies No Known Medication Allergies Normal [facility] CBC AUTO DIFFon 08-02-2021 BASO # 0.0 103/ul Normal 0.0-0.1 [facility] Comment on above: Performed By: #### C BC #### [facility] [address] [place] [address] Dr. Dioni Mayorga Basophils/100 WBC (Bld) 0.4 % Normal 0.2-2.0 [facility] Comment on above: Performed By: #### C BC #### [facility] [address] [place] [address] Dr. Dioni Mayorga EO # 0.1 103/ul Normal 0.0-0.7 [facility] Comment on above: Performed By: #### C BC #### [facility] [address] [place] [address] Dr. Dioni Mayorga Eosinophils/100 WBC (Bld) 1.0 % Normal 0.9-7.0 [facility] Comment on above: Performed By: #### C BC #### [facility] [address] [place] [address] Dr. Dioni Mayorga Erythrocyte distribution width (RBC) [Ratio] 13.4 % Normal 11.0-15.0 [facility] Comment on above: Performed By: #### C BC #### [facility] [address] [place] [address] Dr. Dioni Mayorga Hematocrit (Bld) [Volume fraction] 45.2 % Normal 36.0-48.0 [facility] Comment on above: Performed By: #### C BC #### [facility] [address] [place] [address] Dr. Dioni Mayorga Hemoglobin (Bld) [Mass/Vol] 14.5 g/dL Normal 12.0-16.0 [facility] Comment on above: Performed By: #### C BC #### [facility] [address] [place] [address] Dr. Dioni Mayorga IG # 0.02 10e3/ul Normal 0.00-0.03 [facility] Comment on above: Performed By: #### C BC #### [facility] [address] [place] [address] Dr. Dioni Mayorga IG % 0.3 % Normal 0.0-0.5 [facility] Comment on above: Performed By: #### C BC #### [facility] [address] [place] [address] Dr. Dioni Mayorga LYMPH # 2.7 103/ul Normal 1.2-3.8 [facility] Comment on above: Performed By: #### C BC #### [facility] [address] [place] [address] Dr. Dioni Mayorga Lymphocytes/100 WBC (Bld) 38.7 % Normal 20.5-60.0 [facility] Comment on above: Performed By: #### C BC #### [facility] [address] [place] [address] Dr. Dinoi Mayorga MANUAL DIFF REQ NO Normal [facility] Comment on above: Performed By: #### C BC #### [facility] [address] [place] [address] Dr. Dioni Mayorga MCH (RBC) [Entitic mass] 28.4 pg Normal 26.7-34.0 [facility] Comment on above: Performed By: #### C BC #### [facility] [address] [place] [address] Dr. Dioni Mayorga MCHC (RBC) [Mass/Vol] 32.1 g/dL Normal 29.9-35.2 [facility] Comment on above: Performed By: #### C BC #### [facility] [address] [place] [address] Dr. Dioni Mayorga MCV (RBC) [Entitic vol] 88.5 fL Normal 81.0-99.0 [facility] Comment on above: Performed By: #### C BC #### [facility] [address] [place] [address] Dr. Dioni Mayorga MONO # 0.4 103/ul Normal 0.3-0.8 [facility] Comment on above: Performed By: #### C BC #### [facility] [address] [address] [address] Dioni Mayorga Monocytes/100 WBC (Bld) 6.2 % Normal 1.7-12.0 [facility] Comment on above: Performed By: #### C BC #### [facility] [address] [address] [address] Dioni Mayorga NEUT # 3.7 103/ul Normal 1.4-6.5 [facility] Comment on above: Performed By: #### C BC #### [facility] [address] [address] [address] Dioni Mayorga Neutrophils/100 WBC (Bld) 53.4 % Normal 43.0-75.0 [facility] Comment on above: Performed By: #### C BC #### [facility] [address] [place] [address] Dr. Dioni Mayorga Platelet mean volume (Bld) [Entitic vol] 10.4 fL Normal 9.5-13.5 [facility] Comment on above: Performed By: #### C BC #### [facility] [address] [address] [address] Dioni Mayorga PLT 340 103/ul Normal 150-450 [facility] Comment on above: Performed By: #### C BC #### [facility] [address] [address] [address] Dioni Mayorga RBC 5.11 106/ul Normal 4.20-5.40 [facility] Comment on above: Performed By: #### C BC #### [facility] [address] [place] [address] Dr. Dioni Mayorga WBC 6.9 103/ul Normal 4.0-11.0 [facility] Comment on above: Performed By: #### C BC #### [facility] [address] [place] [address] Dr. Dioni Mayorga FREE T3on 08-02-2021 FREE T3 1.49 pg/mlL Critically low 2.18-3.98 [facility] Comment on above: Performed By: #### F T3, LIPID, CMP, T7, TSH #### [facility] [address] [address] [address] Dioni Mayorga FREE THYROXINE INDEX T7on FTI 2.77 Normal 1.30-4.50 [facility] Comment on above: Performed By: #### F T3, LIPID, CMP, T7, TSH #### [facility] [address] [address] [address] Dioni Mayorga T3U 36.0 % Normal 30.0-39.0 [facility] Comment on above: Performed By: #### F T3, LIPID, CMP, T7, TSH #### [facility] [address] [place] [address] Dr. Dinoi Mayorga T4 [Mass/Vol] 7.70 ug/dL Normal 4.80-13.90 [facility] Comment on above: Performed By: #### F T3, LIPID, CMP, T7, TSH #### [facility] [address] [address] [address] Dioni Mayorga GLYCOHEMOGLOBIN A1Con 2021 ADA RECOMMENDATION SEE BELOW Normal [facility] Comment on above: Result Comment: ADA RECOMMENDED LIMIT 4.0 - 6.0 ADA THERAPEUTIC TARGET < 7.0 ACTION SUGGESTED > 7.0 Performed By: #### A 1C #### [facility] [address] [place] [address] Dr. Dioni Mayorga Glucose [Mass/Vol] 111 mg/dL Normal [facility] Comment on above: Performed By: #### A 1C #### [facility] [address] [place] [address] Dr. Dioni Mayorga HbA1c (Bld) [Mass fraction] 5.5 % Normal 4.5-6.2 [facility] Comment on above: Performed By: #### A 1C #### [facility] [address] [place] [address] Dr. Dioni Mayorga LIPID PROFILEon 08-02-2021 CHOL-HDL RATIO NORM SEE BELOW Normal [facility] Comment on above: Result Comment: 3.3 - 4.4 LOW RISK 4.4 - 7.1 AVERAGE RISK 7.1 - 11.0 MODERATE RISK >11.0 HIGH RISK Performed By: #### F T3, LIPID, CMP, T7, TSH #### [facility] [address] [address] [address] Dioni Mayorga Cholesterol [Mass/Vol] 211 mg/dL Critically high <=200 [facility] Comment on above: Performed By: #### F T3, LIPID, CMP, T7, TSH #### [facility] [address] [address] [address] Dioni Mayorga Cholesterol in HDL [Mass/Vol] 48 mg/dL Normal 40-60 [facility] Comment on above: Performed By: #### F T3, LIPID, CMP, T7, TSH #### [facility] [address] [place] [address] Dr. Dioni Mayorga Cholesterol in LDL [Mass/Vol] 148.6 mg/dL Normal [facility] Comment on above: Performed By: #### F T3, LIPID, CMP, T7, TSH #### [facility] [address] [place] [address] Dr. Dioni Mayorga Cholesterol.total/Ch olesterol in HDL [Mass ratio] 4.4 {ratio} Normal [facility] Comment on above: Performed By: #### F T3, LIPID, CMP, T7, TSH #### [facility] [address] [place] [address] Dr. Dioni Mayorga HDL NORMAL > or = 60 mg/dl - LOW CARDIOVASCULAR RISK <40 mg/dl - HIGH CARDIOVASCULAR RISK Normal [facility] Comment on above: Performed By: #### F T3, LIPID, CMP, T7, TSH #### [facility] [address] [place] [address] Dr. Dioni Mayorga LDL CALC NORMAL SEE BELOW Normal [facility] Comment on above: Result Comment: <100 mg/dl OPTIMAL 100 - 129 mg/dl NEAR OR ABOVE OPTIMAL 130 - 159 mg/dl BORDERLINE HIGH 160 - 189 mg/dl HIGH >190 mg/dl VERY HIGH Performed By: #### F T3, LIPID, CMP, T7, TSH #### [facility] [address] [place] [address] Dr. Dioni Mayorga Triglyceride [Mass/Vol] 72 mg/dL Normal <=150 [facility] Comment on above: Performed By: #### F T3, LIPID, CMP, T7, TSH #### [facility] [address] [address] [address] Dioni Mayorga VLDL CALC 14.4 mg/dL Normal [facility] Comment on above: Performed By: #### F T3, LIPID, CMP, T7, TSH #### [facility] [address] [address] [address] Dioni Mayorga PROF 14(COMP METB)on 022 Albumin [Mass/Vol] 3.5 g/dL Normal 3.4-5.0 [facility] Comment on above: Performed By: #### F T3, LIPID, CMP, T7, TSH #### [facility] [address] [address] [address] Dioni Mayorga Albumin/Globulin [Mass ratio] 1.0 {ratio} Normal [facility] Comment on above: Performed By: #### F T3, LIPID, CMP, T7, TSH #### [facility] [address] [address] [address] Dioni Mayorga ALP [Catalytic activity/Vol] 62 U/L Normal 46-116 [facility] Comment on above: Performed By: #### F T3, LIPID, CMP, T7, TSH #### [facility] [address] [address] [address] Dioni Mayorga ALT [Catalytic activity/Vol] 20 U/L Normal 14-59 [facility] Comment on above: Performed By: #### F T3, LIPID, CMP, T7, TSH #### [facility] [address] [address] [address] Dioni Mayorga Anion gap [Moles/Vol] 14.0 mmol/L Normal [facility] Comment on above: Performed By: #### F T3, LIPID, CMP, T7, TSH #### [facility] [address] [address] [address] Dioni Mayorga AST [Catalytic activity/Vol] 12 U/L Critically low 15-37 [facility] Comment on above: Performed By: #### F T3, LIPID, CMP, T7, TSH #### [facility] [address] [address] [address] Dioni Mayorga Bilirubin [Mass/Vol] 0.4 mg/dL Normal 0.2-1.0 [facility] Comment on above: Performed By: #### F T3, LIPID, CMP, T7, TSH #### [facility] [address] [place] [address] Dr. Dioni Mayorga Calcium [Mass/Vol] 8.7 mg/dL Normal 8.5-10.1 [facility] Comment on above: Performed By: #### F T3, LIPID, CMP, T7, TSH #### [facility] [address] [place] [address] Dr. Dioni Mayorga Chloride [Moles/Vol] 105 mmol/L Normal 98-107 [facility] Comment on above: Performed By: #### F T3, LIPID, CMP, T7, TSH #### [facility] [address] [place] [address] Dr. Dioni Mayorga CO2 [Moles/Vol] 26.4 mmol/L Normal 21.0-32.0 [facility] [place] [facility] Comment on above: Performed By: #### F T3, LIPID, CMP, T7, TSH #### [facility] [address] [place] [address] Dr. Dioni Mayorga Creatinine [Mass/Vol] 0.83 mg/dL Normal 0.55-1.02 [facility] Comment on above: Performed By: #### F T3, LIPID, CMP, T7, TSH #### [facility] [address] [place] [address] Dr. Dioni Mayorga EGFR-AF GAMBIAN >60 Normal >=60 [facility] [place] [facility] Comment on above: Performed By: #### F T3, LIPID, CMP, T7, TSH #### [facility] [address] [place] [address] Dr. Dioni Mayorga EGFR-NON AF GAMBIAN >60 Normal >=60 [facility] Comment on above: Performed By: #### F T3, LIPID, CMP, T7, TSH #### [facility] [address] [address] [address] Dioni Mayorga Globulin (S) [Mass/Vol] 3.5 g/dL Normal [facility] Comment on above: Performed By: #### F T3, LIPID, CMP, T7, TSH #### [facility] [address] [address] [address] Dioni Mayorga Glucose [Mass/Vol] 78 mg/dL Normal 74-[address] [facility] Comment on above: Performed By: #### F T3, LIPID, CMP, T7, TSH #### [facility] [address] [place] [address] Dr. Dioni Mayorga Potassium [Moles/Vol] 4.4 mmol/L Normal 3.5-5.1 [facility] Comment on above: Performed By: #### F T3, LIPID, CMP, T7, TSH #### [facility] [address] [place] [address] Dr. Dioni Mayorga Protein [Mass/Vol] 7.0 g/dL Normal 6.4-8.[address] [facility] Comment on above: Performed By: #### F T3, LIPID, CMP, T7, TSH #### [facility] [address] [place] [address] Dr. Dioni Mayorga Sodium [Moles/Vol] 141 mmol/L Normal 136-[address] [facility] Comment on above: Performed By: #### F T3, LIPID, CMP, T7, TSH #### [facility] [address] [place] [address] Dr. Dioni Mayorga Urea nitrogen [Mass/Vol] 16.0 mg/dL Normal 7.0-18.0 [facility] Comment on above: Performed By: #### F T3, LIPID, CMP, T7, TSH #### [facility] [address] [place] [address] Dr. Dioni Mayorga Urea nitrogen/Creatinine [Mass ratio] 19.3 mg/mg Normal [facility] Comment on above: Performed By: #### F T3, LIPID, CMP, T7, TSH #### [facility] [address] [place] [address] Dr. Dioni Mayorga TSHon 08-02-2021 TSH 1.339 uIU/mL Normal 0.358-3.740 [facility] Comment on above: Performed By: #### F T3, LIPID, CMP, T7, TSH #### [facility] [address] [address] [address] Dioni Mayorga Vital Signs Date Time Vital Sign Value Performing Clinician Faci lity 09-03-2021 08:51-0400 Blood Pressure Location MICHAEL RAFFI [facility] 09-03-2021 08:51-0400 Diastolic blood pressure 96 mm[Hg] MICHAEL NUGENT [facility] 09-03-2021 08:51-0400 Heart rate 106 /min MICHAEL SERNARY [facility] 09-03-2021 08:51-0400 Systolic blood pressure 138 mm[Hg] MICHAEL NUGENT [facility] Encounters Encounter Date Encounter Type Care Provider Facility Start: 07-31-2024 End: 07-31-2024 ambulatory Harish Cannon MD Facility:[facility] Start: 06-19-2024 End: 06-19-2024 ambulatory [facility] Start: 09-13-2023 End: 09-13-2023 ambulatory Harish Cannon MD Facility:[facility] Start: 03-02-2022 End: 03-02-2022 ambulatory [place]OR GROSS Facility:[facility] Start: 12-15-2021 End: 12-15-2021 ambulatory [place] GROSS Facility:[facility] Start: 12-09-2021 End: 12-09-2021 ambulatory [place] GROSS Facility:[facility] Start: 09-17-2021 End: 09-18-[address] MONIKA MATTHEWS Facility:[facility] Start: 09-03-[address] MONIKA MATTHEWS Facility :[facility] Start: 09-03-2021 End: 09-03-2021 Patient encounter procedure MICHAEL NUGENT [facility] Start: 08-05-2021 Encounter for genera l adult medical examination without abnormal findings DR MONIKA MATTHEWS [facility] Start: 08-02-2021 End: 08-03-[address] MONIKA MATTHEWS Facility:[facility] Start: 08-02-2021 End: 08-03-2021 Encounter for general adult medical examination without abnormal findings DR MONIKA MATTHEWS Facility:[facility] Procedures Date Procedure Procedure Detail Performing Clinician Hysterectomy MICHAEL NUGENT Immunizations Immunization Date Immunization Notes Care Provider Fa cility NEGATED: Highlighted row has not occurred!09-03-2021 SARS-CoV-2 mRNA (tozinameran 5y-11y) vaccine MICHAEL NUGENT [facility] Payers Date Payer Category Payer Unknown [id number] 2022 Unknown 2019 Unknown [id number] 1970 Unknown [id number] 2.16.84 [id number] 1970 Unknown [id number] 2.16.84 [id number] 1970 Unknown [id number] .16.84 [id number] 1970 Unknown [id number] 2.16.84 [id number] 1970 Unknown [id number] .16.84 [id number] 1970 Unknown [id number] 2.16.84 [id number] 1970 Unknown [id number] 2.16. [id number] 1970 Unknown [id number] 2.16. [id number] 1970 Unknown [id number] 2.16. [id number] Social History Date Type Detail Facility Start: 09-03-2021 Tobacco smoking status Never s moked tobacco (finding) [facility] Tobacco smoking status Never [facility] [employer] Sex Assigned At Female [facility] [employer] Functional Status Date Assessment Result Facility 09-03-2021 Functional Status N/A [facility] Discharge instructions 09-03-2021 Note Date & [...] (electrical nerve stimulation). For women, using a biomedical engineering professor to prevent urine leaks. This is a [...] right after experiencing incontinence. General instructions Take rhuc-qea-khphjot and prescription medicines only as told by [...] 03/11/2005 Document Revised: 02/11/2018 Document Reviewed: 05/13/2017 [email or web address]. Follow Up Care 08/06/2021 08:10:07 With:pt will call once she decides how she would like to proceed Address:Unknown When: Unknown [facility] Evaluation + Plan note Note Date & Type Note Facility Evaluation + Plan note Future Appointments Appointment Date:09/17/2021 08:30:00 AM Scheduled Provider: Location:[facility] Appointment Type:URO Nurse Visit [facility] Hospital course Narrative Note Date & Type Note Facility Hospital course Narrative No data available for this section [facility] Progress note Note Date & Type Note Facility Progress note No data available for this section [facility] Summary Purpose Family History No Family History Records FoundNo Family History Records FoundNo Family History Records Found Advance Directives No Advanced Directives Records FoundNo Advanced Directives Records FoundNo Advanced Directives Records Found Additional Source Comments Care Team (unrecognized sect ion and content) Personnel Name: Monika Matthews MD Address: [address] [place] [address] INFORMATION SOURCE (unrecogn ized section and content) DATE CREATED AUTHOR 09/18/2021 [facility] DATE CREATED AUTHOR AUTHOR'S ORGANIZ ATION 03/02/2022 [facility] DATE CREATED AUTHOR AUTHOR'S ORGANIZ ATION 08/09/2024 [facility] FOR RECORDS PERTAINING TO [...] BE BASED ON THE PRIMARY CLINICAL RECORDS. [facility]. provides no warranty or guarantee of the accuracy or completeness of information in this document.
--- NOTE | 2024-08-10 07:55 | PM.CN ---
Consult Note: HPI Data of Consult Patient: known to practice within the last 3 years Requesting Physician: Therese Montelongo NP Primary Care Provider: Romero Dykes MD Consult Narrative Reason for consult: f/u Narrative: Barbara Ovalle a pleasant 53 year old female presents for evaluation and management of chronic low back pain. Longstanding hx of low back pain secondary to lumbar spondylosis and lumbar DDD that has failed to significantly improve with >6 weeks of provider guided HEP, PT, heat, ice. recently underwent left SIJ injection with mild improvement per pt. continues to have moderate low back pain. cc:: CC: Therese Montelongo NP Review of Systems ROS Status of ROS 10 or more systems reviewed and unremarkable except as noted in history and below Musculoskeletal Reports: back pain and joint pain PFSH PFSH Medical History Low back ache ?M54.50 - Low back pain, unspecified (ICD-10) Obesity ?E66.9 - Obesity, unspecified (ICD-10) Surgical History H/O tooth extraction ?K08.409 - Partial loss of teeth, unspecified cause, unspecified class (ICD-10) H/O: hysterectomy ?Z90.710 - Acquired absence of both cervix and uterus (ICD-10) Social History Smoking status: Never smoker Meds Home Medications and Allergies Home Medications ?Medication ?Instructions ?Recorded ?Confirmed ?Type loratadine-pseudoephedrine ER 10 1 tab PO DAILY 11/02/22 07/31/24 History mg-240 mg tablet,extended [id number] (Claritin-D 24 Hour) baclofen 10 mg tablet 10 mg PO DAILY PRN muscle spasm 11/17/23 07/31/24 History acetaminophen 325 mg tablet 325 mg PO Q6H PRN pain 12/21/23 07/31/24 History (Tylenol) gabapentin 100 mg capsule 100 mg PO Q8H 01/04/24 07/31/24 History gabapentin 100 mg capsule See Rx Instructions .Route 03/29/24 07/31/24 Rx .COMPLEX #60 caps meloxicam 7.5 mg tablet 7.5 mg PO BID #60 tabs 07/19/24 07/31/24 Rx Allergies Allergy/AdvReac Type Severity Reaction Status Date / Time No Known Drug Allergies Allergy Verified 07/31/24 11:02 Exam Back & Pelvis Lumbar spine/lower back: lumbar ROM normal; no pain with ROM and no lumbar spinal tenderness Sacroiliac joints: SI joints normal Other: left negative jhonny(patricks), gaenslens, thigh thrust, compression test sensation intact BLE negative facet loading pain improved at L4-S1 facets on exam notes increased low back pain with activity and forward flexion Extremity Common normals: normal to inspection and full ROM Assessment and Plan Assessment and Plan (1) Sacroiliitis: Assessment and Plan: The patient has had over 3 months of moderate to severe low back pain with functional impairment and inadequate response to conservative care including NSAIDS (unless there are contraindication such as concurrent blood thinners), multiple oral or topical pain medications, and home exercise program/physical therapy.? Patient has completed >6 weeks of guided home exercise program and/or formal physical therapy program without relief of their symptoms.? I have reviewed the imaging of the lumbar spine and no red flags were identified.? The Oswestry Disability Index was completed, and the patient scored a 34%.? The patient noted the following:?? moderate pain, increased pain with standing, increased pain with walking, decreased sleep (2) Lumbar spondylosis: (3) Muscle spasm: (4) Lumbar degenerative disc disease: Plan significant improvement in SIJ pain, continues to note moderate to severe low back pain that appears discogenic in nature. will increase gabapentin 300mg BID continue baclofen 10mg hs prn continue mobic 7.5mg BID PRN continue HEP as tolerated f/u 1 month
== END 2024-08-10 07:42 | disposition home or self-care (01) ==
PROVIDERS: PCP Family Medicine; Visit Provider Nurse Practitioner
DX: M46.1 Sacroiliitis, not elsewhere classified (principal); M47.816 Spondylosis without myelopathy or radiculopathy, lumbar region; M62.838 Other muscle spasm; M51.369 Other intervertebral disc degeneration, lumbar region without mention of lumbar back pain or lower extremity pain
CPT/HCPCS: G0463

== ENCOUNTER 2024-09-13 07:42 | Outpatient (OUT) | payer BC, SELFPAY ==
--- OUTSIDE RECORDS SUMMARY | 2024-08-14 12:45 | XMS_ITS ---
[facility] [place] Address [address] [place] [address] Care Team Providers Care Air Pollution Specialist Name Role Phone Santo Dykes Primary Care Provider Allergies No Known Allergies REASON FOR VISIT diet check Adipex, Right shoulder pain- thought slept on it wrong about a month ago- waking her up in the middle of the night Medications Medication SIG (Take, Route, Frequency, Duration) Notes Start Date End Date Status Adipex-P 37.5 MG 1 tablet before gunnar kfast Orally Once a day 08/14/2024 Active Semaglutide 2.268 mg/0.63 mL 2.268 mg/0.63 mL 0.63 mL Subcutaneous Once weekly for 30 days 12/20/2023 Active valACYclovir HCl 1 GM 1 tablet Orally ti d for 10 days 02/28/2024 Active Gabapentin 100 MG 1-2 capsule Orally B ID, PRN Active Baclofen 10 MG 1 tablet as needed O rally at HS PRN Active Claritin-D 12 Hour 5-120 MG 1 tablet Orally every 12 hrs for 30 days 06/30/2024 Active Meloxicam 7.5 MG 1 tablet Orally twic e daily PRN 04/28/2024 Active Social History Tobacco Use: Social History Observation Description Date Details (start date - stop date) Never Smoker NA - NA Tobacco Use/Smoking Question Answer Notes Patient is a nonsmoker Vital Signs Weight 234.6 lbs 08/14/2024 Height 62 in 08/14/2024 Blood pressure systolic 114 mm Hg 08/15/19 25 Blood pressure diastolic 82 mm Hg 025 BMI 42.9 kg/m2 08/14/2024 Encounters Encounter Location Date Provider Diagnosis [facility] [address] [place] [id number] 08/14/2024 Santo Dykes Lumbar radiculopathy M54.16 Assessments Encounter Date Diagnosis (ICD Code) Assessment Notes Treatment Notes Treatment Clinical Notes Section Notes 08/14/2024 Lumbar radiculopathy (ICD-10 - M54.16) Plan Of Treatment Medication Medication Name Sig Start Date Stop Date Notes Adipex-P 37.5 MG 1 tablet before gunnar kfast Orally Once a day 08/14/2024 IBU-200 200 MG 4 tabs Orally BID CeleBREX 200 MG 1 capsule with food Orally Twice Daily Next Appt Details Provider Name:Santo Dykes, 05:00:00 PM, [address] [place], [address], Procedure Notes * Category Sub-Category Detail Notes Allergy Allergy Shot Administered Vial A Allergy: Formulation :, Expires:, Arm: Vial B Formulation:, Allerg ies: Expires:, Arm: Progress Notes * KEVEN Barbara LDOB:[birth year] (53 yo F)Acc No.[id number]:08/14/2024 Progress Note Patient: Barbara PAZ Provider: Ame Dykes ([facility])MD :1970 A ge:53 Y S ex:Female Date:08/14/2024 Address:[address], [id number] Check In:04:39 PM ESTCheck O ut:05:19 PM EST Subjective: * Chief Complaints: * d iet check AdipexRight shoulder pain- thought slept on it wrong about a month ago- waking her up in the middle of the night * HPI: G eneral: Patient presents today for allergy injection. * ROS: E ENT: hearing changes d enies. v isual changes d enies.?non-healing mouth sores d enies. s wollen glands or neck lumps d enies. h oarseness d enies. s ore throat d enies. d ifficulty swallowing d enies. n ose bleeds d enies. n michael congestion d enies. e ar ache d enies. e ar discharge?denies. r inging in ears d enies. l ight sensitivity d enies. e ye pain d enies. b lurring d enies. e ye irritation d enies. d ouble vision d enies.?vision loss d enies. G eneral/Constitutional: Sweats: D enies. F atigue d enies. S leep problems d enies. A norexia d enies. M alaise d enies. W eight loss d enies.?Fatigue or Weakness d enies. F ever or Chills d enies. C ardiovascular: Shortness of Breath w/lying flat d enies. L ightheadedness/dizziness d enies. C hest tightness/ heavy pressure d enies. S welling of legs, ankles, or feet d enies. W aking up with shortness of breath d enies. C hest pain denies. P alpitations d enies. W eight gain d enies. R espiratory: Chronic or frequent cough d enies. C oughing up blood?denies. D ifficulty breathing d enies. P roductive cough d enies. S noring?denies. S hortness of breath that awakens from sleep (PND) d enies. C hest pain d enies. S putum production d enies. W heezing d enies. M usculoskeletal: Joint pain d enies. J oint Fluid d enies. B ack pain d enies. K nee pain d enies. N anamika pain d enies. J oint Stiffness d enies. M uscle cramps d enies. W eakness of muscles d enies. A rthritis d enies. M uscle aches d enies. P ain in shoulder(s) d enies. S wollen joints d enies. * Active Problem List M54.16 Lumbar radiculopathy Modified On:05/28/2023W/U Status:confirmed M51.37 Other intervertebral disc degeneration, lumbosacral region Modified On:09/21/2022/U Status:confirmed J01.90 Acute sinusitis Modified On:04/23/2023/U Status:confirmed L03.90 Cellulitis Modified On:07/02/2023/U Status:confirmed Z00.00 Well adult Modified On:08/02/2023/U Status:confirmed * Medical History: * Surgical History: h ysterectomy D/C nerve ablasion 12/2023 * Hospitalization/Major Diagno stic Procedure: D enies Past Hospitalization * Family History: F ather: . M other: alive 68 yrs. B rother(s): alive. S ister(s): alive.?Daughter(s): alive. 1 brother(s) , 2 sister(s) - healthy. 3 daughter(s) - healthy. . * Social History: T obacco Use: T obacco Use/Smoking P atient is a n onsmoker * Medications: T akingAdipex-P(Phentermine HCl) 37.5 MG Tablet 1 tablet before breakfast Orally Once a day Baclofen 10 MG Tablet 1 tablet as needed Orally at HS PRN CeleBREX(Celecoxib) 200 MG Capsule 1 capsule with food Orally Twice Daily Claritin-D 12 Hour(Loratadine-Pseudoephedrine ER) 5-120 MG Tablet Extended Release 12 Hour 1 tablet Orally every 12 hrs Gabapentin 100 MG Capsule 1-2 capsule Orally BID, PRN IBU- 200 200 MG Tablet 4 tabs Orally BID Meloxicam 7.5 MG Tablet 1 tablet Orally twice daily PRN Semaglutide 2.268 mg/0.63 mL 2.268 mg/0.63 mL Soultion Auto-injector 0.63 mL Subcutaneous Once weekly valACYclovir HCl 1 GM Tablet 1 tablet Orally tid Medication List reviewed and reconciled with the patientTaking Adipex-P(Phentermine HCl) 37.5 MG Tablet 1 tablet before breakfast Orally Once a day Taking Baclofen 10 MG Tablet 1 tablet as needed Orally at HS PRN Taking CeleBREX(Celecoxib) 200 MG Capsule 1 capsule with food Orally Twice Daily Taking Claritin-D 12 Hour(Loratadine- Pseudoephedrine ER) 5-120 MG Tablet Extended Release 12 Hour 1 tablet Orally every 12 hrs Taking Gabapentin 100 MG Capsule 1-2 capsule Orally BID, PRN Taking IBU-200 200 MG Tablet 4 tabs Orally BID Taking Meloxicam 7.5 MG Tablet 1 tablet Orally twice daily PRN Taking Semaglutide 2.268 mg/0.63 mL 2.268 mg/0.63 mL Soultion Auto-injector 0.63 mL Subcutaneous Once weekly Taking valACYclovir HCl 1 GM Tablet 1 tablet Orally tid Medication List reviewed and reconciled with the patient * Allergies: N .K.D.A.no[Allergies Verified] Objective: * Vitals: W t:234.6lbs, Ht: 62 in, BP:114/82mm Hg, BMI:42.9Index, Wt-k.41 kg. * Examination: P hysical Exam: GENERAL: w ell developed, well nourished, in no acute distress. HEAD: n ormocephalic/atraumatic. EYES: p upils equal, round and reactive to light, conjunctivae and sclerae normal. EARS: n o deformity or lesion of external ear, canals and TM appear normal bilaterally, TM's intact, not inflamed with normal light reflex, hearing grossly normal to conversational speech. NOSE: n o deformity, discharge, inflammation, or lesions.? MOUTH: m ucous membranes moist, normal oropharynx and posterior pharynx without lesions or exudates, tongue normal, dentition normal. NECK: n anamika supple, no masses or palpable cervical nodes, trachea midline, thyroid without nodules, masses, tenderness, or enlargement. CHEST: n o chest wall deformity, no chest wall tenderness.? LUNGS: n ormal respiratory effort and clear to auscultation, no wheezes, rales, or rhonchi, good air exchange. CARDIO: r egular rate and rhythm, normal S1 and S2, nor murmur, rub, or gallop. PULSES: n ormal capillary refill. ABDOMEN: s oft, non-distended, non-tender, no masses. MUSCULOSKELETAL: n o deformity or scoliosis noted, normal range of motion, joints normal, no erythema, edema, effusion, or ecchymosis. EXTREMITY: n o clubbing, cyanosis, edema, or deformity with normal ROM in both upper and lower bilateral extremities. NEUROLOGIC: g rossly normal. SKIN: n o rashes, ulcerations, or suspicious lesions. LYMPH NODES: n o cervical adenopathy, nodes normal. MENTAL STATUS: a lert and oriented x3, normal mood and affect. Assessment: * Assessment: 1. L umbar radiculopathy - M54.16 (Primary) Plan: * Treatment: * Procedures: A llergy: Allergy Shot A dministered. Vial A A llergy: Formulation:, Expires:, Arm:. Vial B F ormulation:, Allergies: Expires:, Arm:. * Procedure Codes: * Preventive Medicine: Screenings/Counseling: B LA ACTION PLAN Above Normal BMI Follow-up D ietary management education, guidance, and counseling * * Sign off status: Completed Visit Status: C HK (Check Out) true * Provider: Ame Dykes ([facility])MD Date: 08/14/2024 Generated for Printi ng/Faxing/eTransmitting on: 0 09/13/2024 07:44 AM EDT History and Physical Notes * HPI (History of Present Illness) Category Sub-Category Detail Notes Category Not es General Patient present s today for allergy injection Examination Category Sub-Category Detail Notes Category Not es Physical Exam GENERAL: well developed, well nourished, in no acute distress HEAD: normocephalic/atraum atic EYES: pupils equal, round and reactive to light, conjunctivae and sclerae normal EARS: no deformity or lesi on of external ear, canals and TM appear normal bilaterally, TM's intact, not inflamed with normal light reflex, hearing grossly normal to conversational speech NOSE: no deformity, discha rge, inflammation, or lesions MOUTH: mucous membranes gabriel st, normal oropharynx and posterior pharynx without lesions or exudates, tongue normal, dentition normal NECK: neck supple, no mass es or palpable cervical nodes, trachea midline, thyroid without nodules, masses, tenderness, or enlargement CHEST: no chest wall deform ity, no chest wall tenderness LUNGS: normal respiratory e ffort and clear to auscultation, no wheezes, rales, or rhonchi, good air exchange CARDIO: regular rate and rhy thm, normal S1 and S2, nor murmur, rub, or gallop PULSES: normal capillary ref ill ABDOMEN: soft, non-distended, non-tender, no masses RECTAL: MUSCULOSKELETAL: no deformity or scol iosis noted, normal range of motion, joints normal, no erythema, edema, effusion, or ecchymosis EXTREMITY: no clubbing, cyanosi s, edema, or deformity with normal ROM in both upper and lower bilateral extremities NEUROLOGIC: grossly normal SKIN: no rashes, ulceratio ns, or suspicious lesions LYMPH NODES: no cervical adenopat hy, nodes normal MENTAL STATUS: alert and oriented x 3, normal mood and affect
--- OUTSIDE RECORDS SUMMARY | 2024-08-15 06:14 | XMS_ITS ---
Author Organization [facility] in [place] Address [address] [place] [address] Care Team Providers Care Water Resources Project Manager Name Role Phone Santo Dykes Primary Care Provider [phone] REASON FOR VISIT chart update Medications Medication SIG (Take, Route, Fr equency, Duration) Notes Start Date End Date Status Gabapentin 300 MG 1 capsule Orally BID Active Encounters Encounter Location Date Provider Diagnosis [facility] [address] [place] [address] 08/15/2024 Santo Dykes Plan Of Treatment Medication Medication Name Sig Start Date Stop Date Notes Gabapentin 300 MG 1 capsule Orally BID Next Appt Details Provider Name:Santo Dykes, 05:00:00 PM, [address] [place], [address], Progress Notes * Barbara BACA LDOB:[birth year] (53 yo F)Acc No.[id number]:08/15/2024 Patient: Christophe Barbara PETERSON :1970 A ge:53 Y S ex:Female Address:[place] [address] * Refills Refill Gabapentin Capsule, 300 MG, Orally, 1 capsule, BID * true * Date: Generated for Printi ng/Faxing/eTransmitting on: 0 09/13/2024 07:44 AM EDT
--- OUTSIDE RECORDS SUMMARY | 2024-09-11 13:00 | XMS_ITS ---
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 Name Role Phone Santo Dykes Primary Care Provider Allergies No Known Allergies REASON FOR VISIT 2 mo f/u to adipex, needs routine labs Medications Medication SIG (Take, Route, Frequency, Duration) Notes Start Date End Date Status Ondansetron 4 MG 1 tablet on the tong ue and allow to dissolve Orally qid 09/11/2024 Active Baclofen 10 MG 1 tablet as needed O rally at HS PRN Active Semaglutide 2.268 mg/0.63 mL 2.268 mg/0.63 mL 0.63 mL Subcutaneous Once weekly for 30 days 12/20/2023 Active Meloxicam 7.5 MG 1 tablet Orally twic e daily PRN 04/28/2024 Active valACYclovir HCl 1 GM 1 tablet Orally ti d for 10 days 02/28/2024 Active Gabapentin 300 MG 1 capsule Orally BID Active Adipex-P 37.5 MG 1 tablet before gunnar kfast Orally Once a day 09/11/2024 Active Claritin-D 12 Hour 5-120 MG 1 tablet Orally every 12 hrs for 30 days 06/30/2024 Active Social History Tobacco Use: Social History Observation Description Date Details (start date - stop date) Never Smoker NA - NA Tobacco Use/Smoking Question Answer Notes Patient is a nonsmoker AUDIT-C (Standard) Question Answer Notes Did you have a drink containing alcohol in the p ast year? No Points 0 Interpretation Negative Vital Signs Weight 233 lbs 09/11/2024 Height 62 in 09/11/2024 Blood pressure systolic 118 mm Hg 09/12/19 25 Blood pressure diastolic 78 mm Hg 025 BMI 42.61 kg/m2 09/11/2024 Encounters Encounter Location Date Provider Diagnosis [facility] [address] [place] [address] 09/11/2024 Santo Dykes Lumbar radiculopathy M54.16 and Well adult Z00.00 Assessments Encounter Date Diagnosis (ICD Code) Assessment Notes Treatment Notes Treatment Clinical Notes Section Notes 09/11/2024 Lumbar radiculopathy (ICD-10 - M54.16) 09/11/2024 Well adult (ICD-10 - Z00.00) Plan Of Treatment Medication Medication Name Sig Start Date Stop Date Notes Ondansetron 4 MG 1 tablet on the tong ue and allow to dissolve Orally qid 09/11/2024 Adipex-P 37.5 MG 1 tablet before gunnar kfast Orally Once a day 09/11/2024 Pending Test Test Name Order Date HEMOGLOBIN A1C (GLYCO) 09/11/2024 IRON, TOTAL 09/11/2024 LIPID PANEL (CHOL/TRIG/HDL/LDL) 09/12/19 25 Insulin Level 09/11/2024 STOOL OCCULT BLOOD 09/11/2024 THYROID PANEL (T4/TSH/FREE T3) 5 CMP (COMP MET TINEO) w/eGFR CKD-EPI 2024 CBC WITH DIFF 09/11/2024 Next Appt Details Provider Name:Santo Dykes, 05:00:00 PM, [address] [place], [address], Progress Notes * Barbara BACA LDOB:[birth year] (54 yo F)Acc No.[id number]:09/11/2024 UNLOCKED PROGRESS NOTE Progress Note Patient: Barbara PAZ Provider: Ame Dykes ([facility])MD :1970 A ge:54 Y S ex:Female Date:09/11/2024 Address:[address], [id number] Check In:04:55 PM ESTCheck O ut:05:27 PM EST Subjective: * Chief Complaints: * 1 . 2 mo f/u to adipex. 2. Needs routine labs. * ROS: E ENT: hearing changes d enies, denies. v isual changes d enies, denies. n on-healing mouth sores d enies, denies. s wollen glands or neck lumps?denies, denies. h oarseness d enies, denies. s ore throat d enies, denies. d ifficulty swallowing d enies, denies. n ose bleeds d enies, denies. n michael congestion d enies, denies. e ar ache d enies, denies. e ar discharge d enies, denies.?ringing in ears d enies, denies. l ight sensitivity d enies, denies. e ye pain denies, denies. b lurring d enies, denies. e ye irritation d enies, denies. d ouble vision d enies, denies. v ision loss d enies, denies. G eneral/Constitutional: Sweats: D enies, Denies. F atigue d enies, denies.?Sleep problems d enies, denies. A norexia d enies, denies. M alaise d enies, denies. W eight loss d enies, denies. F atigue or Weakness d enies, denies. F ever or Chills d enies, denies. C ardiovascular: Shortness of Breath w/lying flat d enies, denies. L ightheadedness/dizziness d enies, denies. C hest tightness/ heavy pressure d enies, denies.?Swelling of legs, ankles, or feet d enies, denies. W aking up with shortness of breath denies, denies. C hest pain d enies, denies. P alpitations d enies, denies.?Weight gain d enies, denies. R espiratory: Chronic or frequent cough d enies, denies. C oughing up blood d enies, denies. D ifficulty breathing d enies, denies. P roductive cough?denies, denies. S noring d enies, denies. S hortness of breath that awakens from sleep (PND) d enies, denies. C hest pain d enies, denies. S putum production d enies, denies. W heezing d enies, denies. M usculoskeletal: Joint pain d enies, denies. J oint Fluid d enies, denies. B ack pain d enies, denies. K nee pain d enies, denies. N anamika pain d enies, denies. J oint Stiffness d enies, denies. M uscle cramps d enies, denies. Weakness of muscles d enies, denies. A rthritis d enies, denies. M uscle aches?denies, denies. P ain in shoulder(s) d enies, denies. S wollen joints d enies, denies. * Medical History: A nkle edema, Fatigue, COVID-19, COVID. * Surgical History: h ysterectomy , D/C , nerve ablasion 12/2023. * Family History: F ather: . M other: alive 68 yrs. B rother(s): alive. S ister(s): alive.?Daughter(s): alive. 1 brother(s) , 2 sister(s) - healthy. 3 daughter(s) - healthy. . * Social History: T obacco Use: T obacco Use/Smoking P atient is a n onsmoker D rug/Alcohol: A ADRIAN-C (Standard) D id you have a drink containing alcohol in the past year? N o P oints 0 I nterpretation N egative * Medications: T aking Adipex-P(Phentermine HCl) 37.5 MG Tablet 1 tablet before breakfast Orally Once a day , Taking Baclofen 10 MG Tablet 1 tablet as needed Orally at HS PRN , Taking Claritin-D 12 Hour(Loratadine-Pseudoephedrine ER) 5-120 MG Tablet Extended Release 12 Hour 1 tablet Orally every 12 hrs , Taking Gabapentin 300 MG Capsule 1 capsule Orally BID , Notes: per PM, Taking Meloxicam 7.5 MG Tablet 1 tablet Orally twice daily PRN , Taking Semaglutide 2.268 mg/0.63 mL 2.268 mg/0.63 mL Soultion Auto-injector 0.63 mL Subcutaneous Once weekly , Taking valACYclovir HCl 1 GM Tablet 1 tablet Orally tid , Medication List reviewed and reconciled with the patient * Allergies: N .K.D.A. Objective: * Vitals: W t:233lbs, Ht: 62 in, BP:118/78mm Hg, BMI:42.61Index, Wt-k.69 kg. * Examination: P hysical Exam: GENERAL: w ell developed, well nourished, in no acute distress , well developed, well nourished, in no acute distress. HEAD: n ormocephalic/atraumatic , normocephalic/atraumatic.? EYES: p upils equal, round and reactive to light, conjunctivae and sclerae normal , pupils equal, round and reactive to light, conjunctivae and sclerae normal.? EARS: n o deformity or lesion of external ear, canals and TM appear normal bilaterally, TM's intact, not inflamed with normal light reflex, hearing grossly normal to conversational speech , no deformity or lesion of external ear, canals and TM appear normal bilaterally, TM's intact, not inflamed with normal light reflex, hearing grossly normal to conversational speech. NOSE: n o deformity, discharge, inflammation, or lesions , no deformity, discharge, inflammation, or lesions. MOUTH: m ucous membranes moist, normal oropharynx and posterior pharynx without lesions or exudates, tongue normal, dentition normal , mucous membranes moist, normal oropharynx and posterior pharynx without lesions or exudates, tongue normal, dentition normal. NECK: n anamika supple, no masses or palpable cervical nodes, trachea midline, thyroid without nodules, masses, tenderness, or enlargement , neck supple, no masses or palpable cervical nodes, trachea midline, thyroid without nodules, masses, tenderness, or enlargement. CHEST: n o chest wall deformity, no chest wall tenderness , no chest wall deformity, no chest wall tenderness. LUNGS: n ormal respiratory effort and clear to auscultation, no wheezes, rales, or rhonchi, good air exchange , normal respiratory effort and clear to auscultation, no wheezes, rales, or rhonchi, good air exchange. CARDIO: r egular rate and rhythm, normal S1 and S2, nor murmur, rub, or gallop , regular rate and rhythm, normal S1 and S2, nor murmur, rub, or gallop. PULSES: n ormal capillary refill , normal capillary refill.? ABDOMEN: s oft, non-distended, non-tender, no masses , soft, non-distended, non-tender, no masses. MUSCULOSKELETAL: n o deformity or scoliosis noted, normal range of motion, joints normal, no erythema, edema, effusion, or ecchymosis , no deformity or scoliosis noted, normal range of motion, joints normal, no erythema, edema, effusion, or ecchymosis. EXTREMITY: n o clubbing, cyanosis, edema, or deformity with normal ROM in both upper and lower bilateral extremities , no clubbing, cyanosis, edema, or deformity with normal ROM in both upper and lower bilateral extremities. NEUROLOGIC: g rossly normal , grossly normal. SKIN: n o rashes, ulcerations, or suspicious lesions , no rashes, ulcerations, or suspicious lesions. LYMPH NODES: n o cervical adenopathy, nodes normal , no cervical adenopathy, nodes normal. MENTAL STATUS: a lert and oriented x3, normal mood and affect , alert and oriented x3, normal mood and affect. Assessment: * Assessment: 1. L umbar radiculopathy - M54.16 (Primary) 2 . W ell adult - Z00.00 ? Plan: * Treatment: 2. W [facility] adult L AB: HEMOGLOBIN A1C (GLYCO) L AB: IRON, TOTAL L AB: LIPID PANEL (CHOL/TRIG/HDL/LDL) L AB: Insulin Level L AB: STOOL OCCULT BLOOD L AB: THYROID PANEL (T4/TSH/FREE T3) L AB: CMP (COMP MET TINEO) w/eGFR CKD-EPI L AB: CBC WITH DIFF * * Electronic signature of Santo Dykes MD, [id number] on 09/13/2024 at 07:44 AM EDT Sign off status: Pending Visit Status: C HK (Check Out) * Provider: Ame Dykes ([facility])MD Date: 0 09/11/2024 Generated for [place]/Faxing/eTransmitting on: 0 09/13/2024 07:44 AM EDT History and Physical Notes * Examination Category Sub-Category Detail Notes Category Not es Physical Exam GENERAL: well developed, well nourished, in no acute distress , well developed, well nourished, in no acute distress HEAD: normocephalic/atraum atic , normocephalic/atraumatic EYES: pupils equal, round and reactive to light, conjunctivae and sclerae normal , pupils equal, round and reactive to light, conjunctivae and sclerae normal EARS: no deformity or lesi on of external ear, canals and TM appear normal bilaterally, TM's intact, not inflamed with normal light reflex, hearing grossly normal to conversational speech , no deformity or lesion of external ear, canals and TM appear normal bilaterally, TM's intact, not inflamed with normal light reflex, hearing grossly normal to conversational speech NOSE: no deformity, discha rge, inflammation, or lesions , no deformity, discharge, inflammation, or lesions MOUTH: mucous membranes gabriel st, normal oropharynx and posterior pharynx without lesions or exudates, tongue normal, dentition normal , mucous membranes moist, normal oropharynx and posterior pharynx without lesions or exudates, tongue normal, dentition normal NECK: neck supple, no mass es or palpable cervical nodes, trachea midline, thyroid without nodules, masses, tenderness, or enlargement , neck supple, no masses or palpable cervical nodes, trachea midline, thyroid without nodules, masses, tenderness, or enlargement CHEST: no chest wall deform ity, no chest wall tenderness , no chest wall deformity, no chest wall tenderness LUNGS: normal respiratory e ffort and clear to auscultation, no wheezes, rales, or rhonchi, good air exchange , normal respiratory effort and clear to auscultation, no wheezes, rales, or rhonchi, good air exchange CARDIO: regular rate and rhy thm, normal S1 and S2, nor murmur, rub, or gallop , regular rate and rhythm, normal S1 and S2, nor murmur, rub, or gallop PULSES: normal capillary ref ill , normal capillary refill ABDOMEN: soft, non-distended, non-tender, no masses , soft, non-distended, non- tender, no masses RECTAL: MUSCULOSKELETAL: no deformity or scol iosis noted, normal range of motion, joints normal, no erythema, edema, effusion, or ecchymosis , no deformity or scoliosis noted, normal range of motion, joints normal, no erythema, edema, effusion, or ecchymosis EXTREMITY: no clubbing, cyanosi s, edema, or deformity with normal ROM in both upper and lower bilateral extremities , no clubbing, cyanosis, edema, or deformity with normal ROM in both upper and lower bilateral extremities NEUROLOGIC: grossly normal , or[place] ssly normal SKIN: no rashes, ulceratio ns, or suspicious lesions , no rashes, ulcerations, or suspicious lesions LYMPH NODES: no cervical adenopat hy, nodes normal , no cervical adenopathy, nodes normal MENTAL STATUS: alert and oriented x 3, normal mood and affect , alert and oriented x3, normal mood and affect
--- OUTSIDE RECORDS SUMMARY | 2024-09-13 07:45 | XMS_ITS | CCD ---
Author Organization [facility] CliniSyma Care Team Providers Care Product Mgmt Dev Manager Name Role Phone Monika Matthews Primary Care Physician [phone] DR MONIKA MATTHEWS Admitting Unavailable CASSIE, DR [...] Value Interpretation Reference Range Facility Covid-19 PCR ([facility])on 02-15 SARS-CoV-2 (COVID-19) RNA YAMILET+probe Ql (Unsp spec) Not detected Normal NOT DETECTED [facility] Comment on above: Result Comment: [...] for this test is supported by the Disposal Man of Health and Human Service's declaration that [...] be used). Performed By: #### C VDTB ####[facility] [address] [address]Dr. Dioni Mayorga INFLUENZA A AND B AGon 03-02 [facility] SEE BELOW Normal [facility] Comment on above: Result Comment: Nega tive for Flu A protein angiten. Infection due to Flu A cannot be ruled out. Flu A angiten in the sample may be below the detection limit of the test. Performed By: #### I NFLUAB #### [facility] [address] [place] [address] Dr. Dioni Mayorga [facility] SEE BELOW Normal [facility] Comment on above: Result Comment: Nega tive for Flu B protein antigen. Infection due to Flu B cannot be ruled out. Flu B antigen in the sample may be below the detection limit of the test. Performed By: #### I NFLUAB #### [facility] [address] [place] [address] Dr. Dioni Mayorga INFLUENZA A AG Negative Normal NEGATIVE SEE COMMENT [facility] Comment on above: Performed By: #### I NFLUAB #### [facility] [address] [place] [address] Dr. Dioni Mayorga INFLUENZA B AG Negative Normal NEGATIVE SEE COMMENT [facility] Comment on above: Performed By: #### I NFLUAB #### [facility] [address] [place] [address] Dr. Dioni Mayorga ASYMPTOMATIC COVID-19 ANTIGE Non 12-15-2021 EUA Statement SEE BELOW Normal [facility] Comment on above: Result Comment: This test [...] sooner. Performed By: #### C VDAGA #### [facility] [address] [place] [address] Dr. Dioni Mayorga SARS-CoV-2 (COVID-19) RNA YAMILET+probe Ql (Unsp spec) Negative Normal NEGATIVE [facility] Comment on above: Result Comment: Nega tive results are presumptive. They do not preclude infection and should not be used as the sole basis for treatment decisions. Additional confirmatory testing by a molecular method should be considered. Performed By: #### C VDAGA #### [facility] [address] [place] [address] Dr. Dioni Mayorga Covid-19 PCR ([facility])on 11-16 SARS-CoV-2 (COVID-19) RNA YAMILET+probe Ql (Unsp spec) Detected Critically abnormal NOT DETECTED [facility] Comment on above: Result Comment: This test is not yet approved or cleared by the [place] FDA. When there are no FDA-approved or cleared tests available, and other criteria are met, FDA can make tests available under an emergency access mechanism called an Emergency Use Authorization (EUA). The EUA for this test is supported by the [place] of Health and Human Service's declaration that [...] longer be used). Performed By: #### C [facility] ####[facility] [address] [place], [place] [address]IsFrieda Mayorga MG MAMM SCREEN 3D DUSTIN CADon 09-17-2021 MG MAMM SCREEN 3D DUSTIN CAD Patient: BARBARA BACA Exam Date: 09/17/2021 : 1970 Gender:F Ordering : DR MONIKA MATTHEWS . Admission #: [id number] Family : Order #: [id number] CLICK HERE TO VIEW EXAM RADIOLOGY REPORT PROCEDURE: MAMMOGRAM SCREENING 3D BILATERAL CAD COMPARISON: MG MAMM SCREEN 3D DUSTIN CAD, 05/08/2020. MAMMO POST BIOPSY RIGHT, 01/04/2018. INDICATIONS: Screening mammography Calculator Name NCI Breast Cancer Risk Assessment Tool 5 Year Breast Cancer Risk 1.00% Lifetime Breast Cancer Risk 9.60% Personal Breast Cancer No Personal Ovarian Cancer No Treatments None Family Cancers None LOCATION: [facility] BREAST COMPOSITION: Scattered areas fibroglandular [...] Rodarte M.D. on 09/17/2021 at 13:13 Normal [facility] Formson 09-04-2021 Forms [id number] #1.00CD:127 Normal [facility] Patient Educationon 09-05-19 22 Patient [...] Medical Center Physician Referralon 022 Physician Referral [id number] 0#1.00CD:127 Normal [facility] Urology [...] had hysterectomy about 10 yrs ago. 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 [...] E&M of New Patient Moderate 45-59 Min [id number] Follow-up With When Contact Information pt will [...] - Not Given Postpone due to refusal [facility] Comment on above: Result Comment: Elec tronically Signed By: MICHAEL NUGENT PA-C\.br\Date and Time Signed: 09/04/21 09:42 EDT Ambulatory Visit Summaryon 0 09-03-2021 Ambulatory Visit Summary BARBARA BACA :1970 Visit Date:09/03/2021 Ambulatory Visit Instructions Your Diagnosis Stress incontinence Tests Performed Urnls Dip Stick Auto w/o Microscopy POC 39785 Your Care Team Attending Physician - MICHAEL [...] Urnls Dip Stick Auto w/o Microscopy POC 13657 (09/03/2021) Bilirubin Urine Dipstick - Negative Blood Urine Dipstick - Trace-intact Glucose Urine Dipstick - Negative Ketones Urine Dipstick - Negative Leukocytes Urine Dipstick - Negative Nitrite Urine Dipstick - Negative Protein Urine Dipstick - Negative Specific [place] Urine Dipstick - 1.020 Urine Appearance Urine [...] 08-02-2021 BASO # 0.0 103/ul Normal 0.0-0.1 [facility] Comment on above: Performed By: #### C BC #### [facility] [address] [place] [address] Dr. Dioni Mayorga Basophils/100 WBC (Bld) 0.4 % Normal 0.2-2.0 [facility] Comment on above: Performed By: #### C BC #### [facility] [address] [place] [address] Dr. Dioni Mayorga EO # 0.1 103/ul Normal 0.0-0.7 [facility] Comment on above: Performed By: #### C BC #### [facility] [address] [place] [address] Dr. Dioni Mayorga Eosinophils/100 WBC (Bld) 1.0 % Normal 0.9-7.0 [facility] Comment on above: Performed By: #### C BC #### [facility] [address] [place] [address] Dr. Dioni Mayorga Erythrocyte distribution width (RBC) [Ratio] 13.4 % Normal 11.0-15.0 [facility] Comment on above: Performed By: #### C BC #### [facility] [address] [place] [address] Dr. Dioni Mayorga Hematocrit (Bld) [Volume fraction] 45.2 % Normal 36.0-48.0 [facility] Comment on above: Performed By: #### C BC #### [facility] [address] [place] [address] Dr. Dioni Mayorga Hemoglobin (Bld) [Mass/Vol] 14.5 g/dL Normal 12.0-16.0 [facility] Comment on above: Performed By: #### C BC #### [facility] [address] [place] [address] Dr. Dioni Mayorga IG # 0.02 10e3/ul Normal 0.00-0.03 [facility] Comment on above: Performed By: #### C BC #### [facility] [address] [place] [address] Dr. Dioni Maoyrga IG % 0.3 % Normal 0.0-0.5 [facility] Comment on above: Performed By: #### C BC #### [facility] [address] [place] [address] Dr. Dioni Mayorga LYMPH # 2.7 103/ul Normal 1.2-3.8 [facility] Comment on above: Performed By: #### C BC #### [facility] [address] [place] [address] Dr. Dioni Mayorga Lymphocytes/100 WBC (Bld) 38.7 % Normal 20.5-60.0 [facility] Comment on above: Performed By: #### C BC #### [facility] [address] [place] [address] Dr. Dioni Mayorga MANUAL DIFF REQ NO Normal [facility] Comment on above: Performed By: #### C BC #### [facility] [address] [place] [address] Dr. Dioni Mayorga MCH (RBC) [Entitic mass] 28.4 pg Normal 26.7-34.0 [facility] Comment on above: Performed By: #### C BC #### [facility] [address] [place] [address] Dr. Dioni Mayorga MCHC (RBC) [Mass/Vol] 32.1 g/dL Normal 29.9-35.2 [facility] Comment on above: Performed By: #### C BC #### [facility] [address] [place] [address] Dr. Dioni Mayorga MCV (RBC) [Entitic vol] 88.5 fL Normal 81.0-99.0 [facility] Comment on above: Performed By: #### C BC #### [facility] [address] [place] [address] Dr. Dioni Mayorga MONO # 0.4 103/ul Normal 0.3-0.8 [facility] Comment on above: Performed By: #### C BC #### [facility] [address] [address] [address] Dioni Mayorga Monocytes/100 WBC (Bld) 6.2 % Normal 1.7-12.0 [facility] Comment on above: Performed By: #### C BC #### [facility] [address] [address] [address] Dioni Mayorga NEUT # 3.7 103/ul Normal 1.4-6.5 [facility] Comment on above: Performed By: #### C BC #### [facility] [address] [address] [address] Dioni Mayorga Neutrophils/100 WBC (Bld) 53.4 % Normal 43.0-75.0 [facility] Comment on above: Performed By: #### C BC #### [facility] [address] [place] [address] Dr. Dioni Mayorga Platelet mean volume (Bld) [Entitic vol] 10.4 fL Normal 9.5-13.5 [facility] Comment on above: Performed By: #### C BC #### [facility] [address] [address] [address] iDoni Mayorga PLT 340 103/ul Normal 150-450 [facility] Comment on above: Performed By: #### C BC #### [facility] [address] [address] [address] Dioni Mayorga RBC 5.11 106/ul Normal 4.20-5.40 [facility] Comment on above: Performed By: #### C BC #### [facility] [address] [place] [address] Dr. Dioni Mayorga WBC 6.9 103/ul Normal 4.0-11.0 [facility] Comment on above: Performed By: #### C BC #### [facility] [address] [place] [address] Dr. Dioni Mayorga FREE T3on 08-02-2021 FREE T3 1.49 pg/mlL Critically low 2.18-3.98 [facility] Comment on above: Performed By: #### F T3, LIPID, CMP, T7, TSH #### [facility] [address] [address] [address] Dioni Mayorga FREE THYROXINE INDEX T7on FTI 2.77 Normal 1.30-4.50 [facility] Comment on above: Performed By: #### F T3, LIPID, CMP, T7, TSH #### [facility] [address] [address] [address] Dioni Mayorga T3U 36.0 % Normal 30.0-39.0 [facility] Comment on above: Performed By: #### F T3, LIPID, CMP, T7, TSH #### [facility] [address] [place] [address] Dr. Dioni Mayorga T4 [Mass/Vol] 7.70 ug/dL Normal 4.80-13.90 [facility] Comment on above: Performed By: #### F T3, LIPID, CMP, T7, TSH #### [facility] [address] [address] [address] Dioni Mayorga GLYCOHEMOGLOBIN A1Con 2021 ADA RECOMMENDATION SEE BELOW Normal [facility] Comment on above: Result Comment: ADA RECOMMENDED LIMIT 4.0 - 6.0 ADA THERAPEUTIC TARGET < 7.0 ACTION SUGGESTED > 7.0 Performed By: #### A 1C #### [facility] [address] [place] [address] Dr. Dioni Mayorga Glucose [Mass/Vol] 111 mg/dL Normal [facility] Comment on above: Performed By: #### A 1C #### [facility] [address] [place] [address] Dr. Dioni Mayorga HbA1c (Bld) [Mass fraction] 5.5 % Normal 4.5-6.2 [facility] Comment on above: Performed By: #### A 1C #### [facility] [address] [place] [address] Dr. Dioni Mayorga LIPID PROFILEon 08-02-2021 CHOL-HDL RATIO NORM SEE BELOW Normal [facility] Comment on above: Result Comment: 3.3 - 4.4 LOW RISK 4.4 - 7.1 AVERAGE RISK 7.1 - 11.0 MODERATE RISK >11.0 HIGH RISK Performed By: #### F T3, LIPID, CMP, T7, TSH #### [facility] [address] [address] [address] Dioni Mayorga Cholesterol [Mass/Vol] 211 mg/dL Critically high <=200 [facility] Comment on above: Performed By: #### F T3, LIPID, CMP, T7, TSH #### [facility] [address] [address] [address] Dioni Mayorga Cholesterol in HDL [Mass/Vol] 48 mg/dL Normal 40-60 [facility] Comment on above: Performed By: #### F T3, LIPID, CMP, T7, TSH #### [facility] [address] [place] [address] Dr. Dioni Mayorga Cholesterol in LDL [Mass/Vol] 148.6 mg/dL Normal [facility] Comment on above: Performed By: #### F T3, LIPID, CMP, T7, TSH #### [facility] [address] [place] [address] Dr. Dioni Mayorga Cholesterol.total/Ch olesterol in HDL [Mass ratio] 4.4 {ratio} Normal [facility] Comment on above: Performed By: #### F T3, LIPID, CMP, T7, TSH #### [facility] [address] [place] [address] Dr. Dioni Mayorga HDL NORMAL > or = 60 mg/dl - LOW CARDIOVASCULAR RISK <40 mg/dl - HIGH CARDIOVASCULAR RISK Normal [facility] Comment on above: Performed By: #### F T3, LIPID, CMP, T7, TSH #### [facility] [address] [place] [address] Dr. Dioni Mayorga LDL CALC NORMAL SEE BELOW Normal [facility] Comment on above: Result Comment: <100 mg/dl OPTIMAL 100 - 129 mg/dl NEAR OR ABOVE OPTIMAL 130 - 159 mg/dl BORDERLINE HIGH 160 - 189 mg/dl HIGH >190 mg/dl VERY HIGH Performed By: #### F T3, LIPID, CMP, T7, TSH #### [facility] [address] [place] [address] Dr. Dioni Mayorga Triglyceride [Mass/Vol] 72 mg/dL Normal <=150 [facility] Comment on above: Performed By: #### F T3, LIPID, CMP, T7, TSH #### [facility] [address] [address] [address] Dioni Mayorga VLDL CALC 14.4 mg/dL Normal [facility] Comment on above: Performed By: #### F T3, LIPID, CMP, T7, TSH #### [facility] [address] [address] [address] Dioni Mayorga PROF 14(COMP METB)on 022 Albumin [Mass/Vol] 3.5 g/dL Normal 3.4-5.0 [facility] Comment on above: Performed By: #### F T3, LIPID, CMP, T7, TSH #### [facility] [address] [address] [address] Dioni Mayorga Albumin/Globulin [Mass ratio] 1.0 {ratio} Normal [facility] Comment on above: Performed By: #### F T3, LIPID, CMP, T7, TSH #### [facility] [address] [address] [address] Dioni Mayorga ALP [Catalytic activity/Vol] 62 U/L Normal 46-116 [facility] Comment on above: Performed By: #### F T3, LIPID, CMP, T7, TSH #### [facility] [address] [address] [address] Dioni Mayorga ALT [Catalytic activity/Vol] 20 U/L Normal 14-59 [facility] Comment on above: Performed By: #### F T3, LIPID, CMP, T7, TSH #### [facility] [address] [address] [address] Dioni Mayorga Anion gap [Moles/Vol] 14.0 mmol/L Normal [facility] Comment on above: Performed By: #### F T3, LIPID, CMP, T7, TSH #### [facility] [address] [address] [address] Dioni Mayorga AST [Catalytic activity/Vol] 12 U/L Critically low 15-37 [facility] Comment on above: Performed By: #### F T3, LIPID, CMP, T7, TSH #### [facility] [address] [address] [address] Dioni Mayorga Bilirubin [Mass/Vol] 0.4 mg/dL Normal 0.2-1.0 [facility] Comment on above: Performed By: #### F T3, LIPID, CMP, T7, TSH #### [facility] [address] [place] [address] Dr. Dioni Mayorga Calcium [Mass/Vol] 8.7 mg/dL Normal 8.5-10.1 [facility] Comment on above: Performed By: #### F T3, LIPID, CMP, T7, TSH #### [facility] [address] [place] [address] Dr. Dioni Mayorga Chloride [Moles/Vol] 105 mmol/L Normal 98-107 [facility] Comment on above: Performed By: #### F T3, LIPID, CMP, T7, TSH #### [facility] [address] [place] [address] Dr. Dioni Mayorga CO2 [Moles/Vol] 26.4 mmol/L Normal 21.0-32.0 [facility] Comment on above: Performed By: #### F T3, LIPID, CMP, T7, TSH #### [facility] [address] [place] [address] Dr. Dioni Mayorga Creatinine [Mass/Vol] 0.83 mg/dL Normal 0.55-1.02 [facility] Comment on above: Performed By: #### F T3, LIPID, CMP, T7, TSH #### [facility] [address] [place] [address] Dr. Dioni Mayorga EGFR-AF LATVIAN >60 Normal >=60 [facility] Comment on above: Performed By: #### F T3, LIPID, CMP, T7, TSH #### [facility] [address] [place] [address] Dr. Dioni Mayorga EGFR-NON AF LATVIAN >60 Normal >=60 [facility] Comment on above: Performed By: #### F T3, LIPID, CMP, T7, TSH #### [facility] [address] [address] [address] Dioni Mayorga Globulin (S) [Mass/Vol] 3.5 g/dL Normal [facility] Comment on above: Performed By: #### F T3, LIPID, CMP, T7, TSH #### [facility] [address] [address] [address] Dioni Mayorga Glucose [Mass/Vol] 78 mg/dL Normal 74-106 [facility] Comment on above: Performed By: #### F T3, LIPID, CMP, T7, TSH #### [facility] [address] [place] [address] Dr. Dioni Mayorga Potassium [Moles/Vol] 4.4 mmol/L Normal 3.5-5.1 [facility] Comment on above: Performed By: #### F T3, LIPID, CMP, T7, TSH #### [facility] [address] [place] [address] Dr. Dioni Mayorga Protein [Mass/Vol] 7.0 g/dL Normal 6.4-8.2 [facility] Comment on above: Performed By: #### F T3, LIPID, CMP, T7, TSH #### [facility] [address] [place] [address] Dr. Dioni Mayorga Sodium [Moles/Vol] 141 mmol/L Normal 136-145 [facility] Comment on above: Performed By: #### F T3, LIPID, CMP, T7, TSH #### [facility] [address] [place] [address] Dr. Dioni Mayorga Urea nitrogen [Mass/Vol] 16.0 mg/dL Normal 7.0-18.0 [facility] Comment on above: Performed By: #### F T3, LIPID, CMP, T7, TSH #### [facility] [address] [place] [address] Dr. Dioni Mayorga Urea nitrogen/Creatinine [Mass ratio] 19.3 mg/mg Normal [facility] Comment on above: Performed By: #### F T3, LIPID, CMP, T7, TSH #### [facility] [address] [place] [address] Dr. Dioni Mayorga TSHon 08-02-2021 TSH 1.339 uIU/mL Normal 0.358-3.740 [facility] Comment on above: Performed By: #### F T3, LIPID, CMP, T7, TSH #### [facility] [address] [address] [address] Dioni Mayorga Vital Signs Date Time Vital Sign Value Performing Clinician Faci lity 09-03-2021 08:51-0400 Blood Pressure Location MICHAEL RAFFI [facility] 09-03-2021 08:51-0400 Diastolic blood pressure 96 mm[Hg] MICHAEL NUGENT [facility] 09-03-2021 08:51-0400 Heart rate 106 /min MICHAEL SERNARY [facility] 09-03-2021 08:51-0400 Systolic blood pressure 138 mm[Hg] MICHAEL NUGENT [facility] Encounters Encounter Date Encounter Type Care Provider Facility Start: 07-31-2024 End: 07-31-2024 ambulatory Harish Cannon MD Facility:[facility] Start: 06-19-2024 End: 06-19-2024 [facility] Start: 09-13-2023 End: 09-13-2023 ambulatory Harish Cannon MD Facility:[facility] Start: 03-02-2022 End: 03-02-2022 ambulatory SALVADOR GROSS Facility:[facility] Start: 12-15-2021 End: 12-15-2021 ambulatory SALVADOR GROSS Facility:[facility] Start: 12-09-2021 End: 12-09-2021 ambulatory SALVADOR GROSS Facility:[facility] Start: 09-17-2021 End: 09-18-[address] MONIKA MATTHEWS Facility:[facility] Start: 09-03-[address] MONIKA MATTHEWS Facility :[facility] Start: 09-03-2021 End: 09-03-2021 Patient encounter procedure MICHAEL NUGENT [facility] Start: 08-05-2021 Encounter for genera l adult medical examination without abnormal findings DR MONIKA MATTHEWS [facility] Start: 08-02-2021 End: 08-03-[address] MONIKA MATTHEWS Facility:[facility] Start: 08-02-2021 End: 08-03-2021 Encounter for general adult medical examination without abnormal findings DR MONIKA MATTHEWS Facility:[facility] Procedures Date Procedure Procedure Detail Performing Clinician Hysterectomy MICHAEL NUGENT Immunizations Immunization Date Immunization Notes Care Provider Fa cility NEGATED: Highlighted row has not occurred!09-03-2021 SARS-CoV-2 mRNA (tozinameran 5y-11y) vaccine MICHAEL NUGENT [facility] Payers Date Payer Category Payer Unknown [id number] 2022 Unknown 2019 Unknown [id number] 1970 Unknown [id number] 2.16.84 [id number] 1970 Unknown [id number] 2.16.84 [id number] 1970 Unknown [id number] .16.84 [id number] 1970 Unknown [id number] 2.16.84 [id number] 1970 Unknown [id number] .16.84 [id number] 1970 Unknown [id number] 2.16.84 [id number] 1970 Unknown [id number] 2.16. [id number] 1970 Unknown [id number] 2.16. [id number] 1970 Unknown [id number] 2.16. [id number] Social History Date Type Detail Facility Start: 09-03-2021 Tobacco smoking status Never s moked tobacco (finding) [facility] Tobacco smoking status Never [facility] Sex Assigned At Female [facility] Functional Status Date Assessment Result Facility 09-03-2021 Functional Status N/A [facility] Hospital Discharge instructions 09-03-2021 Note Date & [...] (electrical nerve stimulation). For women, using a clinical specialist medical device to prevent urine leaks. This is a [...] right after experiencing incontinence. General instructions Take adzx-uot-wakdhye and prescription medicines only as told by [...] 03/11/2005 Document Revised: 02/11/2018 Document Reviewed: 05/13/2017 [employer] Patient Education [employer]. Follow Up Care 08/06/2021 08:10:07 With:pt will call once she decides how she would like to proceed Address:Unknown When: Unknown [facility] Evaluation + Plan note Note Date & Type Note Facility Evaluation + Plan note Future Appointments Appointment Date:09/17/2021 08:30:00 AM Scheduled Provider: Location:[facility] Appointment Type:URO Nurse Visit [facility] Hospital course Narrative Note Date & Type Note Facility Hospital course Narrative No data available for this section [facility] Progress note Note Date & Type Note Facility Progress note No data available for this section [facility] Summary Purpose Family History No Family History Records FoundNo Family History Records FoundNo Family History Records Found Advance Directives No Advanced Directives Records FoundNo Advanced Directives Records FoundNo Advanced Directives Records Found Additional Source Comments Care Team (unrecognized sect ion and content) Personnel Name: Monika Matthews MD Address: [address] [place] [address] INFORMATION SOURCE (unrecogn ized section and content) DATE CREATED AUTHOR 09/18/2021 [facility] DATE CREATED AUTHOR AUTHOR'S ORGANIZ ATION 03/02/2022 [facility] DATE CREATED AUTHOR AUTHOR'S ORGANIZ ATION 08/09/2024 [facility] FOR RECORDS PERTAINING TO PATIENTS WHO [...] ON THE PRIMARY CLINICAL RECORDS. [facility]. provides no warranty or guarantee of the accuracy or completeness of information in this document.
--- OUTSIDE RECORDS SUMMARY | 2024-09-13 07:45 | XMS_ITS | Patient Health Record ---
Author Organization [facility] in [place] Address [address] [place] [address] Care Team Providers Care Tripe Washer Name Role Phone Santo Dykes Primary Care Provider [phone] Allergies No Known Allergies Results Component Value Reference Range Notes XR hip LT min 2V Reviewed date:12/12/2023 10:53:55 PM Interpretation: Performing Lab: Notes/Report: Source Facility: [place] [address] XRay Report Signed Patient: BARBARA BACA MR#: [id number] : 1970 Acct:[id number] Age/Sex: 53 / F ADM Date: 12/07/23 Loc: LAB Attending Dr: Eufemia Roca M.D. Ordering Physician: Eufemia Roca M.D. Date of Service: 12/07/23 Procedure(s): XR hip LT min 2V Accession Number(s): [id number] cc: Romero Dykes M.D.; Eufemia Roca M.D. [address] [address] Patient Name: BARBARA BACA MRN: [id number] date: 1970 Sex: F Assigned Patient Location: LAB Current Patient Location: SURGOUT Accession/Order Number: [id number] Exam Date: 12/07/2023 13:40 Report Date: 12/12/2023 [...] M.D. Signed By: 12/12/23657 DD/ 4 TD/TT: Concrete Engineer: [place] [address] XRay Report Signed Patient: CARLY BACA MR#: [id number] : 1970 Acct:[id number] Age/Sex: 53 / F ADM Date: 12/07/23 Loc: LAB Attending Dr: Lisa Roca M.D. Ordering Physician: Eufemia Roca M.D. Date of Service: 12/07/23 Procedure(s): XR hip LT min 2V Accession Number(s): [id number] cc: Romero Dykes M.D. ; Eufemia Roca M.D. [facility] [place] [id number] Patient Name: BARBARA BACA MRN: [id number] date: 1970 Sex: F Assigned Patient Location: LAB Current Patient Loca tion: SURGOUT Accession/Order Numb er: [id number] Exam Date: 13:40 Report Date: 12/12/2023 06:55 At the request of: UEFEMIA ROCA Procedure: XR hip LT min 2V [...] M.D. Signed By: 12/12/23657 DD/ 4 TD/TT: Concrete Engineer: MM tomosynthesis screening B I Reviewed date:10/24/2023 07:53:57 PM Interpretation: Performing Lab: Notes/Report: Source Facility: [place] [address] Mammography Report Signed Patient: BARBARA BACA MR#: [id number] : 1970 Acct:[id number] Age/Sex: 53 / F ADM Date: 10/22/23 Loc: MAMMO Attending Dr: Romero Dykse M.D. Ordering Physician: Romero Dykes M.D. Results: Date of Service: 10/22/23 Follow Up: Procedure(s): MM tomosynthesis screening BI Accession Number(s): [id number] cc: Romero Dykes M.D. Patient Name: BARBARA BACA MR#: [id number] : 1970 Exam Date: 10/22/2023 Ordering Doctor: [...] Treatments None Family Cancers None LOCATION: [facility] BREAST COMPOSITION: There are scattered areas of [...] M.D. Signed By: 10/22/231643 DD/ 42 TD/TT: Concrete Engineer: [place] [address] Mammography Report Signed Patient: CARLY BACA MR#: [id number] : 1970 Acct:[id number] Age/Sex: 53 / F ADM Date: 10/22/23 Loc: MAMMO Attending Dr: Romero Dykes M.D. Ordering Physician: Romero Dykes M.D. Results: Date of Service: 08/08 Follow Up: Procedure(s): MM anna osynthesis screening BI Accession Number(s): [id number] cc: Romero Dykes M.D. Patient Name: BARBARA BACA MR#: [id number] : 1970 Exam Date: 10/22/2023 Ordering Doctor: [...] Treatments None Family Cancers None LOCATION: [facility] BREAST COMPOSITION: There are scattered areas of [...] M.D. Signed By: 10/22/231643 DD/ 42 TD/TT: Concrete Engineer: Reason For Referral No Information Medications Medication SIG (Take, Route, Frequency, Duration) Notes Start Date End Date Status Ondansetron 4 MG 1 tablet on the tong ue and allow to dissolve Orally qid 09/11/2024 Active Baclofen 10 MG 1 tablet as needed O rally at HS PRN Active Gabapentin 300 MG 1 capsule Orally BID Active Adipex-P 37.5 MG 1 tablet before gunnar kfast Orally Once a day 09/11/2024 Active Claritin-D 12 Hour 5-120 MG 1 tablet Orally every 12 hrs for 30 days 06/30/2024 Active Semaglutide 2.268 mg/0.63 mL 2.268 mg/0.63 mL 0.63 mL Subcutaneous Once weekly for 30 days 12/20/2023 Active Meloxicam 7.5 MG 1 tablet Orally twic e daily PRN 04/28/2024 Active valACYclovir HCl 1 GM 1 tablet Orally ti d for 10 days 02/28/2024 Active Social History Tobacco Use: Social History [...] Problem Status W/U Status Risk Notes Problem 07251934 Other intervertebral disc degeneration, lumbosacral region (M51.37) Active confirmed Problem Lumbar radiculopathy (340765834) Lumbar radiculopathy (M54.16) Active confirmed Problem Acute sinusitis (52012942) Acute sinusitis (J01.90) Active confirmed Problem Well adult (185673882) Well adult (Z00.00) Active confirmed Problem Cellulitis (272275951) Cellulitis (L03.90) Active confirmed Vital Signs Blood pressure diastolic 78 mm Hg 09/11/2024 Height 62 in 09/11/2024 Blood pressure systolic 118 mm Hg 09/11/2024 Weight 233 lbs 09/11/2024 BMI 42.61 kg/m2 09/11/2024 Encounters Encounter Location Date Provider Diagnosis [facility] [address] [place] [address] 01/26/2024 Santo Hoy Acute non-recurrent sinusitis, unspecified location J01.90 and Nasal congestion R09.81 [facility] [address] [place] [address] 07/13/2024 Santo Hoy Well adult Z00.00 [facility] [address] [place] [address] 08/14/2024 Santo Hoy Lumbar radiculopathy M54.16 [facility] [address] [place] [address] 09/11/2024 Santo Hoy Lumbar radiculopathy M54.16 and Well adult Z00.00 [facility] [address] [place] [address] 09/27/2023 Santo Hoy [facility] [address] [place] [address] 10/21/2023 Santo isaiah [facility] [address] [facility] [place] [address] 10/24/2023 Santo isaiah [facility] [address] [facility] [place] [address] 12/20/2023 Santo isaiah [facility] [address] [facility] [place] [address] 01/24/2024 Santo isaiah [facility] [address] [facility] [place] [address] 02/01/2024 Santo Dykes Acute non-recurrent sinusitis, unspecified location J01.90 [facility] [address] [facility] [place] [address] 02/28/2024 Santo [facility] [address] [facility] [place] [address] 04/28/2024 Santo Dykes [facility] [address] [facility] [place] [address] 06/30/2024 Santo Dykes [facility] [address] [facility] [place] [address] 07/13/2024 Santo [facility] [address] [place] [facility] [place] [address] 08/15/2024 Santo Dykes Assessments Encounter Date Diagnosis (ICD Code) Assessment Notes Treatment Notes Treatment Clinical Notes Section Notes 01/26/2024 Acute non-recurrent sinusitis, unspecified location (ICD-10 - J01.90) Rest and drink more liquids, especially water. You may use a humidifier or vaporizer to help keep the drainage moist. Tjww-iob-zinqbxj Nasal Saline may help the stuffy and runny nose. Use Ibuprofen and or Tylenol as needed for fever, chills, body aches or pain. Children 5 years old should not be given ejlo-cgq-odckiqr cough and cold medications such as guaifenesin and dextromethorphan. If you're over age 5, you may try bcuy-kmy-jviwdlo cold medications such as guaifenesin and dextromethorphan, [...] days 07/13/2024 Well adult (ICD-10 - Z00.00) 08/14/2024 Lumbar radiculopathy (ICD-10 - M54.16) 09/11/2024 Lumbar radiculopathy (ICD-10 - M54.16) 09/11/2024 Well adult (ICD-10 - Z00.00) 02/01/2024 Acute non-recurrent sinusitis, unspecified location (ICD-10 - J01.90) 01/26/2024 Nasal congestion (ICD-10 - R09.81) Plan Of Treatment Pending Test Test Name Order Date CMP (COMPLETE METABOLIC PANEL) 4 HEMOGLOBIN A1C (GLYCO) 08/02/2023 HEMOGLOBIN A1C (GLYCO) 09/11/2024 IRON, TOTAL 09/11/2024 LIPID PANEL (CHOL/TRIG/HDL/LDL) 09/12/19 25 LIPID PANEL (CHOL/TRIG/HDL/LDL) 08/02/19 24 CBC WITH DIFF 08/02/2023 Insulin Level 09/11/2024 STOOL OCCULT BLOOD 09/11/2024 CBC AUTO DIFF 09/02/2022 GLYCOHEMOGLOBIN A1C 09/02/2022 LIPID PROFILE 09/02/2022 TSH 09/02/2022 MG MAMM SCREEN 3D DUSTIN CAD 10/14/2022 MRI LSPINE WO CON 09/02/2022 XR LSPINE 2_3 VIEWS 09/02/2022 THYROID PANEL (T4/TSH/FREE T3) CMP (COMP MET TINEO) w/eGFR CKD-EPI 2024 CBC WITH DIFF 09/11/2024 Next Appt Details Provider Name:Santo Sprague Jania, 05:00:00 PM, [address] [place], [address], Insurance Providers Payer Name Payer Address Payer Phone Subscriber Number Group Number Insured Name Patient Relationship to Insured Coverage Start Date Coverage End Date [employer] ACCESS PPO PLUS LOCAL PLAN [address] [place] [address] [id number] Yamile Barbara Self - patient is the insured 3 Medications Administered Medication Instructions Date of Administration Dosage Notes Kenalog-40 04/23/2023 120 mg 120 Ketorolac Tromethamine 04/23/2023 60 mg 60 Medical (General) History Medical History History ICD Code Ankle edema R60.0 Fatigue R53.83 COVID-19 079.89 COVID U07.1 Surgical History Surgery Date(Month/Year) D/C hysterectomy nerve ablasion 12/2023
--- OUTSIDE RECORDS SUMMARY | 2024-09-13 07:45 | XMS_ITS | Clinical Summary ---
Author Organization [facility] Address [address] [place] [address] Care Team Providers Care Senior Statistical Programmer Name Role Phone Unavailable Primary Care Provider [...]
--- NOTE | 2024-09-13 07:51 | PM.CN ---
Consult Note: HPI Data of Consult Patient: known to practice within the last 3 years Requesting Physician: Therese Montelongo NP Primary Care Provider: Romero Dykes MD Consult Narrative Reason for consult: f/u Narrative: Barbara Ovalle a pleasant 53 year old female presents for evaluation and management of chronic low back pain. Longstanding hx of low back pain secondary to lumbar spondylosis and lumbar DDD that has failed to significantly improve with >6 weeks of provider guided HEP, PT, heat, ice. since last visit we increased gabapentin 300mg BID however she cannot tolerate 300mg throughout the day. pain remains unchanged, 4/10 aching at this time, increasing to 8/10 in the AM and by end of day in low back and left SIJ. cc:: CC: Therese Montelongo NP [facility] Medical History Low back ache ?M54.50 - Low back pain, unspecified (ICD-10) Obesity ?E66.9 - Obesity, unspecified (ICD-10) Surgical History H/O tooth extraction ?K08.409 - Partial loss of teeth, unspecified cause, unspecified class (ICD-10) H/O: hysterectomy ?Z90.710 - Acquired absence of both cervix and uterus (ICD-10) Social History Smoking status: Never smoker Meds Home Medications and Allergies Home Medications ?Medication ?Instructions ?Recorded ?Confirmed ?Type loratadine-pseudoephedrine ER 10 1 tab PO DAILY 11/02/22 07/31/24 History mg-240 mg tablet,extended [id number] (Claritin-D 24 Hour) baclofen 10 mg tablet 10 mg PO DAILY PRN muscle spasm 11/17/23 07/31/24 History acetaminophen 325 mg tablet 325 mg PO Q6H PRN pain 12/21/23 07/31/24 History (Tylenol) gabapentin 100 mg capsule 100 mg PO Q8H 01/04/24 07/31/24 History gabapentin 100 mg capsule See Rx Instructions .Route 03/29/24 07/31/24 Rx .COMPLEX #60 caps meloxicam 7.5 mg tablet 7.5 mg PO BID #60 tabs 07/19/24 07/31/24 Rx gabapentin 300 mg capsule 300 mg PO BID #60 caps 08/10/24 Rx baclofen 10 mg tablet 10 mg PO DAILY #30 tabs 08/21/24 Rx Allergies Allergy/AdvReac Type Severity Reaction Status Date / Time No Known Drug Allergies Allergy Verified 07/31/24 11:02 Exam Constitutional Documenting provider has reviewed patient's vital signs: yes Common normals: no apparent distress, oriented x3, healthy appearing, alert and well nourished General appearance: cooperative HENMT Common normals: normocephalic, hearing grossly normal bilaterally and moist oral mucous membranes Head and scalp: normocephalic Eye Common normals: PERRL Pupil: PERRL Neck & C-Spine Common normals: full ROM General: normal visual inspection Chest Common normals: inspection of chest normal Respiratory Common normals: normal respiratory effort, no retractions and no use of accessory muscles Back & Pelvis Lumbar spine/lower back: lumbar ROM normal, pain with ROM and lumbar spinal tenderness Lumbar spinal tenderness location: L2, L3 and L4 Sacroiliac joints: SI joints normal Other: left negative jhonny(patricks), gaenslens, thigh thrust, compression test sensation intact BLE negative facet loading notes increased low back pain with activity and forward flexion Extremity Common normals: normal to inspection and full ROM Neuro Common normals: oriented x3 Sensorium/orientation: alert Psych Common normals: mental status grossly normal, thought process normal, cooperative, affect normal, speech normal and activity/motor behavior normal Speech: normal speech Thought process: normal thought process Results Additional Findings Additional findings: If on a controlled substance or opioids, I have checked an [place] report on this patient and there are no aberrancies noted in the prescribing history.??If on a controlled substance or opioid a drug screen was completed and reviewed within the last year, and if there has not been a drug screen completed we ordered one today to monitor higher risk, state monitored pain medication use. As part of providing excellent, safe, comprehensive care, the following was completed at our patient's visit: 1. A medication reconciliation and review to ensure accurate knowledge of current/active medications, including asking our patients to inform us about any ywqc-ktu-ijmnmsc medications or herbal remedies/nutritional supplements/alternative remedies. 2. A review to specifically ensure our patients have had annual screening for screening for depression, screening for tobacco use, and screening for unhealthy alcohol use. For concerning screenings had a discussion with the patient, provided patient education, and recommended follow-up with primary care provider when appropriate. If patient noted with a risk of falling, they received education on strength, gait, and balance training to prevent future risk of falling. Portions of this note may have been carried over from the previous visit and updated as appropriate. Please note this office utilizes paper charting in addition to the electronic medical record. A list of current medications, vitals, and PMH is available there as the clinical staff outside of myself do not have access to [employer] charting during the clinic day operations. As part of providing quality comprehensive care the current medications, vitals, and PMH were reviewed in the paper chart. Assessment and Plan Assessment and Plan (1) Vertebrogenic low back pain: (2) Lumbar degenerative disc disease: (3) Lumbar stenosis without neurogenic claudication: (4) Myalgia, other site: (5) Lumbar spondylosis: Plan The patient has had over 3 months of moderate to severe low back pain with functional impairment and inadequate response to conservative care including NSAIDS (unless there are contraindication such as concurrent blood thinners), multiple oral or topical pain medications, and home exercise program/physical therapy.? Patient has completed >6 weeks of guided home exercise program and/or formal physical therapy program without relief of their symptoms.? The Oswestry Disability Index was completed, and the patient scored a 32%.? The patient noted the following:?? moderate to severe pain impacting ADLs, sitting, standing, sleeping, walking, social life, travel change gabapentin 100mg capsules BID and up to 300mg HS continue baclofen 10mg PRN pain/spasms continue mobic 7.5mg BID PRN pain continue HEP as tolerated update lumbar MRI without contrast to evaluate for modic changes, lumbar spondylosis, and lumbar stenosis with NC in consideration of surgical consultation f/u once mri complete
== END 2024-09-13 07:43 | disposition home or self-care (01) ==
LOC: PM 07:42
PROVIDERS: PCP Family Medicine; Visit Provider Nurse Practitioner
DX: M54.51 Vertebrogenic low back pain (principal); M51.369 Other intervertebral disc degeneration, lumbar region without mention of lumbar back pain or lower extremity pain; M48.062 Spinal stenosis, lumbar region with neurogenic claudication; M79.18 Myalgia, other site; M47.816 Spondylosis without myelopathy or radiculopathy, lumbar region
CPT/HCPCS: G0463

== ENCOUNTER 2024-09-26 08:07 | Outpatient (OUT) | payer BC, SELFPAY ==
[2024-09-26 10:38] LABS: Hematocrit 45.2 % (36.0-48.0); Hemoglobin 15.1 g/dL (12.0-16.0); Immature Granulocytes Abs Auto 0.01 10^3/uL (0.00-0.03); Immature Granulocytes Pct Auto 0.1 % (0.0-0.5); Lymphocytes Absolute Auto 2.7 10^3/uL (1.2-3.8); Mean Corpuscular HGB Conc 33.4 g/dL (29.9-35.2); Mean Corpuscular Hemoglobin 29.4 pg (26.7-34.0); Mean Corpuscular Volume 88.1 fL (81.0-99.0); Platelet Count 316 10^3/uL (150-450); Red Blood Count 5.13 10^6/uL (4.20-5.40); White Blood Count 7.5 10^3/uL (4.0-11.0)
[2024-09-26 11:12] LABS: Alanine Aminotransferase 21 U/L (14-59); Albumin Globulin Ratio 1.0; Albumin Level 3.8 g/dL (3.4-5.0); Alkaline Phosphatase 80 U/L (46-116); Anion Gap 14.7; Aspartate Amino Transferase 21 U/L (15-37); Blood Urea Nitrogen 17.0 mg/dL (7.0-18.0); Calcium 9.3 mg/dL (8.5-10.1); Carbon Dioxide 23.9 mmol/L (21.0-32.0); Chloride 103 mmol/L (98-107); Cholesterol 195 mg/dL (<=200); Estimated GFR (African America >60 (>=60 mL/min/1.73m^2); Estimated GFR (Non-African Ame >60 (>=60 mL/min/1.73m^2); Free T3 2.73 pg/mL (2.18-3.98); Globulin 3.7 g/dL; Glucose 89 mg/dL (74-106); HDL Cholesterol 56 mg/dL (40-60); Potassium 4.6 mmol/L (3.5-5.1); Sodium 137 mmol/L (136-145); Thyroid Stimulating Hormone 2.353 uIU/mL (0.358-3.740); Total Protein 7.5 g/dL (6.4-8.2); Triglycerides 75 mg/dL (<=150); VLDL CHOLESTEROL 15.0 mg/dL
[2024-09-26 14:57] LABS: Iron 44.0 ug/dL (50.0-170.0)
== END 2024-09-26 08:08 | disposition home or self-care (01) ==
PROVIDERS: PCP Family Medicine; Visit Provider Family Medicine
DX: Z00.00 Encounter for general adult medical examination without abnormal findings (principal)
CPT/HCPCS: 36415; 80053; 80061; 83036; 83525; 83540; 84436; 84443; 84481; 85025

== ENCOUNTER 2024-10-04 06:48 | Outpatient (OUT) | payer BC, SELFPAY ==
--- OUTSIDE RECORDS SUMMARY | 2024-08-15 06:14 | XMS_ITS ---
Author Organization [facility] [place] Address [address] [place] [address] Care Team Providers Care Supervisor Baking Name Role Phone Santo Dykes Primary Care Provider [phone] REASON FOR VISIT chart update Medications Medication SIG (Take, Route, Fr equency, Duration) Notes Start Date End Date Status Gabapentin 300 MG 1 capsule Orally BID Active Encounters Encounter Location Date Provider Diagnosis [facility] [address] [place] [address] 08/15/2024 Santo Dykes Plan Of Treatment Medication Medication Name Sig Start Date Stop Date Notes Gabapentin 300 MG 1 capsule Orally BID Next Appt Details Provider Name:Santo Dykes, 05:00:00 PM, [address] [place], [address], Progress Notes * Barbara BACA LDOB:[birth year] (53 yo F)Acc No.[id number]:08/15/2024 Patient: Christophe Barbara PETERSON :1970 A ge:53 Y S ex:Female Address:[place] [address] * Refills Refill Gabapentin Capsule, 300 MG, Orally, 1 capsule, BID * true * Date: Generated for Printi ng/Faxing/eTransmitting on: 0 10/04/2024 06:50 AM EDT
--- OUTSIDE RECORDS SUMMARY | 2024-09-11 13:00 | XMS_ITS ---
Author Organization [facility] [place] Address [address] [place] [address] Care Team Providers Care Forge Tender Name Role Phone Santo Dykes Primary Care Provider [phone] Allergies No Known Allergies REASON FOR VISIT [...] 09/11/2024 Encounters Encounter Location Date Provider Diagnosis [facility] ([place], [place]) [address] [place] [address] 09/11/2024 Santo Dykes Lumbar radiculopathy M54.16 and [...] Provider Name:Santo Dykes, 05:00:00 PM, [address] [place], [address], Progress Notes * Barbara BACA LDOB:[birth year] (54 yo F)Acc No.[id number]:09/11/2024 Progress Note Patient: Xiang PAZhuma Manning Provider: Ame Dykes ([facility])MD :1970 A ge:54 Y S ex:Female Date:09/11/2024 Address:[facility] [id number] Check In:04:55 PM ESTCheck O ut:05:27 PM EST Subjective: * Chief Complaints: * 2 mo f/u to adipexNeeds routine labs * ROS: E ENT: hearing changes d [...] S wollen joints d enies, denies. * Active Problem List M54.16 Lumbar radiculopathy Modified On:05/28/2023W/U Status:confirmed M51.37 Other intervertebral disc degeneration, lumbosacral region Modified On:09/21/2022W/U Status:confirmed J01.90 Acute sinusitis Modified On:04/23/2023/U Status:confirmed L03.90 Cellulitis Modified On:07/02/2023W/U Status:confirmed Z00.00 Well adult Modified On:08/02/2023/U Status:confirmed * Medical History: * Surgical History: h ysterectomy D/C nerve ablasion 12/2023 * Hospitalization/Major Diagno stic Procedure: N o Hospitalization History. * Family History: F ather: . M [...] I nterpretation N egative * Medications: T akingAdipex-P(Phentermine HCl) 37.5 MG Tablet 1 tablet before breakfast Orally Once a day Baclofen 10 MG Tablet 1 tablet as needed Orally at HS PRN Claritin-D 12 Hour(Loratadine-Pseudoephedrine ER) 5-120 MG Tablet Extended Release 12 Hour 1 tablet Orally every 12 hrs Gabapentin 300 MG Capsule 1 capsule Orally BID , Notes: per PMMeloxicam 7.5 MG Tablet 1 tablet Orally twice [...] as needed Orally at HS PRN Taking Claritin-D 12 Hour(Loratadine-Pseudoephedrine ER) 5-120 MG Tablet Extended Release 12 Hour 1 tablet Orally every 12 hrs Taking Gabapentin 300 MG Capsule 1 capsule Orally BID , Notes: per PMTaking Meloxicam 7.5 MG Tablet 1 tablet Orally twice daily PRN Taking Semaglutide 2.268 mg/0.63 mL 2.268 mg/0.63 mL Soultion Auto-injector 0.63 mL Subcutaneous Once weekly Taking valACYclovir HCl 1 GM Tablet 1 tablet Orally tid Medication List reviewed and reconciled with the patient * Allergies: N .K.D.A.no[Allergies Verified] Objective: * Vitals: W t:233lbs, Ht: 62 [...] Z00.00 ? Plan: * Treatment: 2. W ell adult L AB: HEMOGLOBIN A1C (GLYCO) L AB: IRON, TOTAL L AB: LIPID PANEL (CHOL/TRIG/HDL/LDL) L AB: Insulin Level L AB: STOOL OCCULT BLOOD L AB: THYROID PANEL (T4/TSH/FREE T3) L AB: CMP (COMP MET TINEO) w/eGFR CKD-EPI L AB: CBC WITH DIFF * Procedure Codes: * * Sign off status: Completed Visit Status: C HK (Check Out) true * Provider: Ame Dykes ([facility])MD Date: 0 09/11/2024 Generated for Printi ng/Faxing/eTransmitting on: 0 10/04/2024 06:50 AM EDT History and Physical Notes * [...]
--- OUTSIDE RECORDS SUMMARY | 2024-09-26 12:07 | XMS_ITS ---
Author Organization [facility] in [place] Address [address] [place] [address] Care Team Providers Care Automotive Parts Manager Name Role Phone Santo Dykes Primary Care Provider [phone] REASON FOR VISIT labs Problems Problem Type SNOMED Code ICD Code Onset Dates Problem Status W/U Status Risk Notes Problem Iron deficiency (90095162) Iron deficiency (E61.1) Active confirmed Encounters Encounter Location Date Provider Diagnosis [facility] [address] [place] [address] 09/26/2024 aSnto Dykes Plan Of Treatment Next Appt Details Provider Name:Santo Dykes, 05:00:00 PM, [address] [place], [address], Progress Notes * Barbara BACA LDOB:[birth year] (54 yo F)Acc No.[id number]:09/26/2024 Patient: Christophe PETERSON Barbara Manning :1970 A ge:54 Y S ex:Female Address:[place] [address] * true * Date: Generated for Printi ng/Faxing/eTransmitting on: 0 10/04/2024 06:50 AM EDT
--- OUTSIDE RECORDS SUMMARY | 2024-10-04 06:50 | XMS_ITS | Clinical Summary ---
Author Organization [facility] Address [address] [place] [address] Care Team Providers Care Bracelet Former Name Role Phone Unavailable Primary Care Provider [...]
--- OUTSIDE RECORDS SUMMARY | 2024-10-04 06:51 | XMS_ITS | CCD ---
Author Organization [facility] CliniSywa Care Team Providers Care Apron Worker Name Role Phone Monika Matthews Primary Care [...] Reference Range Facility Covid-19 PCR ([facility])on 02-15 SARS-CoV-2 (COVID-19) RNA YAMILET+probe Ql (Unsp spec) Not detected Normal NOT DETECTED [facility] Comment on above: Result Comment: When diagnostic [...] for this test is supported by the [place] of Health and Human Service's declaration that [...] be used). Performed By: #### C VDTB ####[facility] [address] [address]Dr. Dioni Mayorga INFLUENZA A AND B AGon 03-02 [facility] SEE BELOW Normal [facility] Comment on above: Result Comment: Nega tive for Flu A protein angiten. Infection due to Flu A cannot be ruled out. Flu A angiten in the sample may be below the detection limit of the test. Performed By: #### I NFLUAB #### [facility] [address] [place] [address] Dr. Dioni Mayorga [facility] SEE BELOW Normal [facility] Comment on above: Result Comment: Nega tive for Flu B protein antigen. Infection due to Flu B cannot be ruled out. Flu B antigen in the sample may be below the detection limit of the test. Performed By: #### I NFLUAB #### [facility] [address] [place] [address] Dr. Dioni Mayorag INFLUENZA A AG Negative Normal NEGATIVE SEE COMMENT [facility] Comment on above: Performed By: #### I NFLUAB #### [facility] [address] [place] [address] Dr. Dioni Mayorga INFLUENZA B AG Negative Normal NEGATIVE SEE COMMENT [facility] Comment on above: Performed By: #### I NFLUAB #### [facility] [address] [place] [address] Dr. Dioni Mayorga ASYMPTOMATIC COVID-19 ANTIGE Non 12-15-2021 EUA Statement SEE BELOW Normal [facility] Comment on above: Result Comment: This [...] sooner. Performed By: #### C VDAGA #### [facility] [address] [place] [address] Dr. Dioni Mayorga SARS-CoV-2 (COVID-19) RNA YAMILET+probe Ql (Unsp spec) Negative Normal NEGATIVE [facility] Comment on above: Result Comment: Nega tive results are presumptive. They do not preclude infection and should not be used as the sole basis for treatment decisions. Additional confirmatory testing by a molecular method should be considered. Performed By: #### C VDAGA #### [facility] [address] [place] [address] Dr. Dioni Mayorga Covid-19 PCR (CVD[facility])on 11-16 SARS-CoV-2 (COVID-19) RNA YAMILET+probe Ql (Unsp spec) Detected Critically abnormal NOT DETECTED [facility] Comment on above: Result Comment: This test is not yet approved or cleared by the [place] FDA. When there are no FDA-approved or cleared tests available, and other criteria are met, FDA can make tests available under an emergency access mechanism called an Emergency Use Authorization (EUA). The EUA for this test is supported by the Contractor Buyer of Health and Human Service's declaration that [...] #### C [facility] ####[facility] [address] [place], [place] [address]ZoFrieda Mayorga MG MAMM SCREEN 3D DUSTIN CADon 09-17-2021 MG MAMM SCREEN 3D DUSTIN CAD Patient: BARBARA BACA Exam Date: 09/17/2021 : 1970 Gender:F Ordering : DR MONIKA MATTHEWS . Admission #: [id number] Family : Order #: [id number] CLICK HERE TO VIEW EXAM RADIOLOGY REPORT PROCEDURE: MAMMOGRAM SCREENING 3D BILATERAL CAD COMPARISON: MG MAMM SCREEN 3D DUSTIN CAD, 05/08/2020. MAMMO POST BIOPSY RIGHT, 01/04/2018. INDICATIONS: Screening mammography Calculator Name NCI Breast Cancer Risk Assessment Tool 5 Year Breast Cancer Risk 1.00% Lifetime Breast Cancer Risk 9.60% Personal Breast Cancer No Personal Ovarian Cancer No Treatments None Family Cancers None LOCATION: [facility] BREAST COMPOSITION: Scattered areas fibroglandular density. FINDINGS: [...] Rodarte M.D. on 09/17/2021 at 13:[address] [facility] Formson 09-04-2021 Forms [id number] #1.00CD:127 Normal [facility] Patient Educationon 09-05-19 22 Patient Education [...] Take ove (more content not included)... Normal [facility] Physician Referralon 022 Physician Referral [id number]#1.00CD:127 Normal [facility] Urology Office/Clinic Noteon 09-04-2021 Urology Office/Clinic [...] had hysterectomy about 10 yrs ago. 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 CONTROL VALVE TECHNICIAN advised her bladder had dropped a [...] E&M of New Patient Moderate 45-59 Min 17875 Follow-up With When Contact Information pt will [...] Given Postpone due to refusal [facility] Comment on above: Result Comment: Elec tronically Signed By: MICHAEL NUGENT PA-C\.br\Date and Time Signed: 09/04/21 09:42 EDT Ambulatory Visit Summaryon 0 09-03-2021 Ambulatory Visit Summary BARBARA BACA :1970 Visit Date:09/03/2021 Ambulatory Visit Instructions Your Diagnosis Stress incontinence Tests Performed Urnls Dip Stick Auto w/o Microscopy POC 27670 Your Care Team Attending Physician - MICHAEL [...] Urnls Dip Stick Auto w/o Microscopy POC 01418 (09/03/2021) Bilirubin Urine Dipstick - Negative Blood Urine Dipstick - Trace-intact Glucose Urine Dipstick - Negative Ketones Urine Dipstick - Negative Leukocytes Urine Dipstick - Negative Nitrite Urine Dipstick - Negative Protein Urine Dipstick - Negative Specific [place] Urine Dipstick - 1.020 Urine Appearance Urine Dipstick - Clear Urine Color Urine Dipstick - Yellow Urobilinogen Urine Dipstick - Normal 0.2-1 EU/dl pH Urine Dipstick - 5 Medications and Immunizations Administered Not Given SARS-CoV-2 mRNA (tozinameran 5y-11y) vac, Postpone due to refusal Allergies No Known Allergies No Known Medication Allergies Normal [facility] CBC AUTO DIFFon 08-02-2021 BASO # 0.0 103/ul Normal 0.0-0.1 [facility] Comment on above: Performed By: #### C BC #### [facility] [address] [place] [address] Dr. Dioni Mayorga Basophils/100 WBC (Bld) 0.4 % Normal 0.2-2.0 [facility] Comment on above: Performed By: #### C BC #### [facility] [address] [place] [address] Dr. Dioni Mayorga EO # 0.1 103/ul Normal 0.0-0.7 [facility] Comment on above: Performed By: #### C BC #### [facility] [address] [place] [address] Dr. Dioni Mayorga Eosinophils/100 WBC (Bld) 1.0 % Normal 0.9-7.0 [facility] Comment on above: Performed By: #### C BC #### [facility] [address] [place] [address] Dr. Dioni Mayorga Erythrocyte distribution width (RBC) [Ratio] 13.4 % Normal 11.0-15.0 [facility] Comment on above: Performed By: #### C BC #### [facility] [address] [place] [address] Dr. Dioni Mayorga Hematocrit (Bld) [Volume fraction] 45.2 % Normal 36.0-48.0 [facility] Comment on above: Performed By: #### C BC #### [facility] [address] [place] [address] Dr. Dioni Mayorga Hemoglobin (Bld) [Mass/Vol] 14.5 g/dL Normal 12.0-16.0 [facility] Comment on above: Performed By: #### C BC #### [facility] [address] [place] [address] Dr. Dioni Mayorga IG # 0.02 10e3/ul Normal 0.00-0.03 [facility] Comment on above: Performed By: #### C BC #### [facility] [address] [place] [address] Dr. Dioni Mayorga IG % 0.3 % Normal 0.0-0.5 [facility] Comment on above: Performed By: #### C BC #### [facility] [address] [place] [address] Dr. Dioni Mayorga LYMPH # 2.7 103/ul Normal 1.2-3.8 [facility] Comment on above: Performed By: #### C BC #### [facility] [address] [place] [address] Dr. Dioni Mayorga Lymphocytes/100 WBC (Bld) 38.7 % Normal 20.5-60.0 [facility] Comment on above: Performed By: #### C BC #### [facility] [address] [place] [address] Dr. Dioni Mayorga MANUAL DIFF REQ NO Normal [facility] Comment on above: Performed By: #### C BC #### [facility] [address] [place] [address] Dr. Dioni Mayorga MCH (RBC) [Entitic mass] 28.4 pg Normal 26.7-34.0 [facility] Comment on above: Performed By: #### C BC #### [facility] [address] [place] [address] Dr. Dioni Mayorga MCHC (RBC) [Mass/Vol] 32.1 g/dL Normal 29.9-35.2 [facility] Comment on above: Performed By: #### C BC #### [facility] [address] [place] [address] Dr. Dioni Mayorga MCV (RBC) [Entitic vol] 88.5 fL Normal 81.0-99.0 [facility] Comment on above: Performed By: #### C BC #### [facility] [address] [place] [address] Dr. Dioni Mayorga MONO # 0.4 103/ul Normal 0.3-0.8 [facility] Comment on above: Performed By: #### C BC #### [facility] [address] [address] [address] Dioni Mayorga Monocytes/100 WBC (Bld) 6.2 % Normal 1.7-12.0 [facility] Comment on above: Performed By: #### C BC #### [facility] [address] [address] [address] Dioni Mayorga NEUT # 3.7 103/ul Normal 1.4-6.5 [facility] Comment on above: Performed By: #### C BC #### [facility] [address] [address] [address] Dioni Mayorga Neutrophils/100 WBC (Bld) 53.4 % Normal 43.0-75.0 [facility] Comment on above: Performed By: #### C BC #### [facility] [address] [place] [address] Dr. Dioni Mayorga Platelet mean volume (Bld) [Entitic vol] 10.4 fL Normal 9.5-13.5 [facility] Comment on above: Performed By: #### C BC #### [facility] [address] [address] [address] Dioni Mayorga PLT 340 103/ul Normal 150-450 [facility] Comment on above: Performed By: #### C BC #### [facility] [address] [address] [address] Dioni Mayorga RBC 5.11 106/ul Normal 4.20-5.40 [facility] Comment on above: Performed By: #### C BC #### [facility] [address] [place] [address] Dr. Dioni Mayorga WBC 6.9 103/ul Normal 4.0-11.0 [facility] Comment on above: Performed By: #### C BC #### [facility] [address] [place] [address] Dr. Dioni Mayorga FREE T3on 08-02-2021 FREE T3 1.49 pg/mlL Critically low 2.18-3.98 [facility] Comment on above: Performed By: #### F T3, LIPID, CMP, T7, TSH #### [facility] [address] [address] [address] Dioni Mayorga FREE THYROXINE INDEX T7on FTI 2.77 Normal 1.30-4.50 [facility] Comment on above: Performed By: #### F T3, LIPID, CMP, T7, TSH #### [facility] [address] [address] [address] Dioni Mayorga T3U 36.0 % Normal 30.0-39.0 [facility] Comment on above: Performed By: #### F T3, LIPID, CMP, T7, TSH #### [facility] [address] [place] [address] Dr. Dioni Mayorga T4 [Mass/Vol] 7.70 ug/dL Normal 4.80-13.90 [facility] Comment on above: Performed By: #### F T3, LIPID, CMP, T7, TSH #### [facility] [address] [address] [address] Dioni Mayorga GLYCOHEMOGLOBIN A1Con 2021 ADA RECOMMENDATION SEE BELOW Normal [facility] Comment on above: Result Comment: ADA RECOMMENDED LIMIT 4.0 - 6.0 ADA THERAPEUTIC TARGET < 7.0 ACTION SUGGESTED > 7.0 Performed By: #### A 1C #### [facility] [address] [place] [address] Dr. Dioni Mayorga Glucose [Mass/Vol] 111 mg/dL Normal [facility] Comment on above: Performed By: #### A 1C #### [facility] [address] [place] [address] Dr. Dioni Mayorga HbA1c (Bld) [Mass fraction] 5.5 % Normal 4.5-6.2 [facility] Comment on above: Performed By: #### A 1C #### [facility] [address] [place] [address] Dr. Dioni Mayorga LIPID PROFILEon 08-02-2021 CHOL-HDL RATIO NORM SEE BELOW Normal [facility] Comment on above: Result Comment: 3.3 - 4.4 LOW RISK 4.4 - 7.1 AVERAGE RISK 7.1 - 11.0 MODERATE RISK >11.0 HIGH RISK Performed By: #### F T3, LIPID, CMP, T7, TSH #### [facility] [address] [address] [address] Dioni Mayorga Cholesterol [Mass/Vol] 211 mg/dL Critically high <=200 [facility] Comment on above: Performed By: #### F T3, LIPID, CMP, T7, TSH #### [facility] [address] [address] [address] Dioni Mayorga Cholesterol in HDL [Mass/Vol] 48 mg/dL Normal 40-60 [facility] Comment on above: Performed By: #### F T3, LIPID, CMP, T7, TSH #### [facility] [address] [place] [address] Dr. Dioni Mayorga Cholesterol in LDL [Mass/Vol] 148.6 mg/dL Normal [facility] Comment on above: Performed By: #### F T3, LIPID, CMP, T7, TSH #### [facility] [address] [place] [address] Dr. Dioni Mayorga Cholesterol.total/Ch olesterol in HDL [Mass ratio] 4.4 {ratio} Normal [facility] Comment on above: Performed By: #### F T3, LIPID, CMP, T7, TSH #### [facility] [address] [place] [address] Dr. Dioni Mayorga HDL NORMAL > or = 60 mg/dl - LOW CARDIOVASCULAR RISK <40 mg/dl - HIGH CARDIOVASCULAR RISK Normal [facility] Comment on above: Performed By: #### F T3, LIPID, CMP, T7, TSH #### [facility] [address] [place] [address] Dr. Dioni Mayorga LDL CALC NORMAL SEE BELOW Normal [facility] Comment on above: Result Comment: <100 mg/dl OPTIMAL 100 - 129 mg/dl NEAR OR ABOVE OPTIMAL 130 - 159 mg/dl BORDERLINE HIGH 160 - 189 mg/dl HIGH >190 mg/dl VERY HIGH Performed By: #### F T3, LIPID, CMP, T7, TSH #### [facility] [address] [place] [address] Dr. Dioni Mayorga Triglyceride [Mass/Vol] 72 mg/dL Normal <=150 [facility] Comment on above: Performed By: #### F T3, LIPID, CMP, T7, TSH #### [facility] [address] [address] [address] Dioni Mayorga VLDL CALC 14.4 mg/dL Normal [facility] Comment on above: Performed By: #### F T3, LIPID, CMP, T7, TSH #### [facility] [address] [address] [address] Dioni Mayorga PROF 14(COMP METB)on 022 Albumin [Mass/Vol] 3.5 g/dL Normal 3.4-5.0 [facility] Comment on above: Performed By: #### F T3, LIPID, CMP, T7, TSH #### [facility] [address] [address] [address] Dioni Mayorga Albumin/Globulin [Mass ratio] 1.0 {ratio} Normal [facility] Comment on above: Performed By: #### F T3, LIPID, CMP, T7, TSH #### [facility] [address] [address] [address] Dioni Mayorga ALP [Catalytic activity/Vol] 62 U/L Normal 46-116 [facility] Comment on above: Performed By: #### F T3, LIPID, CMP, T7, TSH #### [facility] [address] [address] [address] Dioni Mayorga ALT [Catalytic activity/Vol] 20 U/L Normal 14-59 [facility] Comment on above: Performed By: #### F T3, LIPID, CMP, T7, TSH #### [facility] [address] [address] [address] Dioni Mayorga Anion gap [Moles/Vol] 14.0 mmol/L Normal [facility] Comment on above: Performed By: #### F T3, LIPID, CMP, T7, TSH #### [facility] [address] [address] [address] Dioni Mayorga AST [Catalytic activity/Vol] 12 U/L Critically low 15-37 [facility] Comment on above: Performed By: #### F T3, LIPID, CMP, T7, TSH #### [facility] [address] [address] [address] Dioni Mayorga Bilirubin [Mass/Vol] 0.4 mg/dL Normal 0.2-1.0 [facility] Comment on above: Performed By: #### F T3, LIPID, CMP, T7, TSH #### [facility] [address] [place] [address] Dr. Dioni Mayorga Calcium [Mass/Vol] 8.7 mg/dL Normal 8.5-10.1 [facility] Comment on above: Performed By: #### F T3, LIPID, CMP, T7, TSH #### [facility] [address] [place] [address] Dr. Dioni Mayorga Chloride [Moles/Vol] 105 mmol/L Normal 98-107 [facility] Comment on above: Performed By: #### F T3, LIPID, CMP, T7, TSH #### [facility] [address] [place] [address] Dr. Dioni Mayorga CO2 [Moles/Vol] 26.4 mmol/L Normal 21.0-32.0 [facility] Comment on above: Performed By: #### F T3, LIPID, CMP, T7, TSH #### [facility] [address] [place] [address] Dr. Dioni Mayorga Creatinine [Mass/Vol] 0.83 mg/dL Normal 0.55-1.02 [facility] Comment on above: Performed By: #### F T3, LIPID, CMP, T7, TSH #### [facility] [address] [place] [address] Dr. Dioni Mayorga EGFR-AF PUERTO RICAN >60 Normal >=60 [facility] Comment on above: Performed By: #### F T3, LIPID, CMP, T7, TSH #### [facility] [address] [place] [address] Dr. Dioni Mayorga EGFR-NON AF PUERTO RICAN >60 Normal >=60 [facility] Comment on above: Performed By: #### F T3, LIPID, CMP, T7, TSH #### [facility] [address] [address] [address] Dioni Mayorga Globulin (S) [Mass/Vol] 3.5 g/dL Normal [facility] Comment on above: Performed By: #### F T3, LIPID, CMP, T7, TSH #### [facility] [address] [address] [address] Dioni Mayorga Glucose [Mass/Vol] 78 mg/dL Normal 74-106 [facility] Comment on above: Performed By: #### F T3, LIPID, CMP, T7, TSH #### [facility] [address] [place] [address] Dr. Dioni Mayorga Potassium [Moles/Vol] 4.4 mmol/L Normal 3.5-5.1 [facility] Comment on above: Performed By: #### F T3, LIPID, CMP, T7, TSH #### [facility] [address] [place] [address] Dr. Dioni Mayorga Protein [Mass/Vol] 7.0 g/dL Normal 6.4-8.2 [facility] Comment on above: Performed By: #### F T3, LIPID, CMP, T7, TSH #### [facility] [address] [place] [address] Dr. Dioni Mayorga Sodium [Moles/Vol] 141 mmol/L Normal 136-145 [facility] Comment on above: Performed By: #### F T3, LIPID, CMP, T7, TSH #### [facility] [address] [place] [address] Dr. Dioni Mayorga Urea nitrogen [Mass/Vol] 16.0 mg/dL Normal 7.0-18.0 [facility] Comment on above: Performed By: #### F T3, LIPID, CMP, T7, TSH #### [facility] [address] [place] [address] Dr. Dioni Mayorga Urea nitrogen/Creatinine [Mass ratio] 19.3 mg/mg Normal [facility] Comment on above: Performed By: #### F T3, LIPID, CMP, T7, TSH #### [facility] [address] [place] [address] Dr. Dioni Mayorga TSHon 08-02-2021 TSH 1.339 uIU/mL Normal 0.358-3.740 [facility] Comment on above: Performed By: #### F T3, LIPID, CMP, T7, TSH #### [facility] [address] [address] [address] Dioni Mayorga Vital Signs Date Time Vital Sign Value Performing Clinician Faci lity 09-03-2021 08:51-0400 Blood Pressure Location MICHAEL RAFFI [facility] 09-03-2021 08:51-0400 Diastolic blood pressure 96 mm[Hg] MICHAEL NUGENT [facility] 09-03-2021 08:51-0400 Heart rate 106 /min MICHAEL SERNARY [facility] 09-03-2021 08:51-0400 Systolic blood pressure 138 mm[Hg] MICHAEL NUGENT [facility] Encounters Encounter Date Encounter Type Care Provider Facility Start: 07-31-2024 End: 07-31-2024 ambulatory Harish Cannon MD Facility:[facility] Start: 06-19-2024 End: 06-19-2024 [facility]ulatory [facility] Start: 09-13-2023 End: 09-13-2023 ambulatory Harish Cannon MD Facility:[facility] Start: 03-02-2022 End: 03-02-2022 ambulatory SALVADOR GROSS [...] examination without abnormal findings DR MONIKA MATTHEWS [facility] Start: 08-02-2021 End: 08-03-[address] [...] Hospital Payers Date Payer Category Payer Unknown [id number] 2022 Unknown 2019 Unknown [id number] 1970 Unknown [id number] 2.16.84 [id number] 1970 Unknown [id number] 2.16.84 [id number] 1970 Unknown [id number] .16.84 [id number] 1970 Unknown [id number] 2.16.84 [id number] 1970 Unknown [id number] .16.84 [id number] 1970 Unknown [id number] 2.16.84 [id number] 1970 Unknown [id number] 2.16. [id number] 1970 Unknown [id number] 2.16. [id number] 1970 Unknown [id number] 2.16. [id number] Social History Date Type Detail Facility Start: 09-03-2021 Tobacco smoking status Never s moked tobacco (finding) [facility] Tobacco smoking status Never [facility] [employer] Sex Assigned At Female [facility] [employer] Functional Status Date Assessment Result Facility 09-03-2021 Functional Status N/A [facility] [employer] Hospital Discharge instructions 09-03-2021 Note Date & [...] stimulation). For women, using a medical assistant prn to prevent urine leaks. This is a [...] right after experiencing incontinence. General instructions Take sxms-bgy-hnocmzh and prescription medicines only as told by [...] 03/11/2005 Document Revised: 02/11/2018 Document Reviewed: 05/13/2017 [facility] Patient Education [employer]. Follow Up Care 08/06/2021 08:10:07 With:pt will call once she decides how she would like to proceed Address:Unknown When: Unknown [facility] Evaluation + Plan note Note Date & Type Note Facility Evaluation + Plan note Future Appointments Appointment Date:09/17/2021 08:30:00 AM Scheduled Provider: Location:[facility] Appointment Type:URO Nurse Visit [facility] Hospital course Narrative Note Date & Type Note Facility Hospital course Narrative No data available for this section [facility] Progress note Note Date & Type Note Facility Progress note No data available for this section [facility] Summary Purpose Family History No Family History Records FoundNo Family History Records FoundNo Family History Records Found Advance Directives No Advanced Directives Records FoundNo Advanced Directives Records FoundNo Advanced Directives Records Found Additional Source Comments Care Team (unrecognized sect ion and content) Personnel Name: Monika Matthews MD Address: [address] [place] [address] INFORMATION SOURCE (unrecogn ized section and content) DATE CREATED AUTHOR 09/18/2021 [facility] DATE CREATED AUTHOR AUTHOR'S ORGANIZ ATION 03/02/2022 [facility] DATE CREATED AUTHOR AUTHOR'S ORGANIZ ATION 08/09/[address] [facility] FOR RECORDS PERTAINING TO PATIENTS WHO [...] BE BASED ON THE PRIMARY CLINICAL RECORDS. [facility]. provides no warranty or guarantee of the accuracy or completeness of information in this document.
--- OUTSIDE RECORDS SUMMARY | 2024-10-04 06:51 | XMS_ITS | Patient Health Record ---
Author Organization [facility] in [place] Address [address] [place] [address] Care Team Providers Care Senior Analyst Developer Name Role Phone Santo Dykes Primary Care Provider Allergies No Known Allergies Results Component Value Reference Range Notes CBC AUTO DIFF Reviewed date:09/26/2024 04:08:12 PM Interpretation: Performing Lab: Notes/Report: [facility] , White Blood Count 7.5 4.0-11.0 10 3/uL Red Blood Count 5.13 4.20-5.40 10 6/uL Hemoglobin 15.1 12.0-16.0 g/dL Hematocrit 45.2 36.0-48.0 % Mean Corpuscular Volume 88.1 81.0-99.0 fL Mean Corpuscular Hemoglobin 29.4 26.7-34.0 pg Mean Corpuscular HGB Conc 33.4 29.9-35.2 g/dL Red Cell Distribution Width 13.2 11.0-15.0 % Platelet Count 316 150-450 10 3/uL Mean Platelet Volume 11.5 9.5-13.5 fL Neutrophils Percent Auto 54.4 43.0-75.0 % Lymphocytes Percent Auto 35.9 20.5-60.0 % Monocytes Percent Auto 8.8 1.7-12.0 % Eosinophils Percent Auto 0.4 0.9-7.0 % Basophils Percent Auto 0.4 0.2-2.0 % Immature Granulocytes Pct Auto 0.1 0.0-0.5 % Neutrophils Absolute Auto 4.1 1.4-6.5 10 3/uL Lymphocytes Absolute Auto 2.7 1.2-3.8 10 3/uL Monocytes Absolute Auto 0.7 0.3-0.8 10 3/uL Eosinophils Absolute Auto 0.0 0.0-0.7 10 3/uL Basophils Absolute Auto 0.0 0.0-0.1 10 3/uL Immature Granulocytes Abs Auto 0.01 0.00-0.03 10 3/uL Performing Lab: see note ML - [facility] LB INSULIN Reviewed date:09/27/2024 06:20:42 PM Interpretation: Performing Lab: Notes/Report: [facility] , Insulin 7.2 2.6-24.9 uIU/mL Performed at: - [facility] [address] [id number] Supervisor Forming Department: Rommel Zavala PhD, Phone: [phone] Performing Lab: see note - [facility] LB TSH Reviewed date:09/26/2024 04:08:12 PM Interpretation: Performing Lab: Notes/Report: [facility] , Thyroid Stimulating Hormone 2.353 0.358-3.740 uIU/mL Performing Lab: see note ML - [facility] LB T4 Reviewed date:09/26/2024 04:08:12 PM Interpretation: Performing Lab: Notes/Report: [facility] , T4 Thyroxine 8.60 4.80-13.90 ug/dL Performing Lab: see note - [facility] LB PROF 14(COMP METB) Reviewed date:09/26/2024 04:08:12 PM Interpretation: Performing Lab: Notes/Report: [facility] , Sodium 137 136-145 mmol/L Potassium 4.6 3.5-5.1 mmol/L Chloride 103 98-107 mmol/L Carbon Dioxide 23.9 21.0-32.0 mmol/L Anion Gap 14.7 Glucose 89 74-106 mg/dL Blood Urea Nitrogen 17.0 7.0-18.0 mg/dL Creatinine 0.68 0.55-1.02 mg/dL Estimated GFR ( Kim >60 >=60 mL/min/1.73m 2 Estimated GFR (Non- [place] >60 >=60 mL/min/1.73m 2 BUN Creatinine Ratio 25.0 Calcium 9.3 8.5-10.1 mg/dL Bilirubin Total 0.3 0.2-1.0 mg/dL Aspartate Amino Transferase 21 15-37 U/L Alanine Aminotransferase 21 14-59 U/L Alkaline Phosphatase 80 46-116 U/L Total Protein 7.5 6.4-8.2 g/dL Albumin Level 3.8 3.4-5.0 g/dL Globulin 3.7 Albumin Globulin Ratio 1.0 Performing Lab: see note ML - [facility] LB LIPID PROFILE Reviewed date:09/26/2024 04:08:12 PM Interpretation: Performing Lab: Notes/Report: [facility] , Triglycerides 75 <=150 mg/dL Cholesterol 195 <=200 mg/dL HDL Cholesterol 56 40-60 mg/dL > or =60 mg/dl - LOW CARDIOVASCULAR RISK <40 mg/dl - HIGH CARDIOVASCULAR RISK LDL Cholesterol Calculated 124.0 <100 mg/dl OPTIMAL 100-129 mg/dl NEAR OR ABOVE OPTIMAL 130-159 mg/dl BORDERLINE HIGH 160-189 mg/dl HIGH >190 mg/dl VERY HIGH VLDL CHOLESTEROL 15.0 Chol HDL Ratio 3.5 3.3 - 4.4 LOW RISK 4.4 - 7.1 AVERAGE RISK 7.1 - 11.0 MODERATE RISK >11.0 HIGH RISK Performing Lab: see note ML - [facility] IRON Reviewed date:09/26/2024 04:08:12 PM Interpretation: Performing Lab: Notes/Report: [facility] , Iron 44.0 50.0-170.0 ug/dL Performing Lab: see note ML - [facility] LB GLYCOHEMOGLOBIN A1C Reviewed date:09/26/2024 04:08:12 PM Interpretation: Performing Lab: Notes/Report: [facility] , Glycohemoglobin A1C 5.1 4.5-6.2 % ADA RECOMMENDED LIMIT 4.0 - 6.0 ADA THERAPEUTIC TARGET < 7.0 ACTION SUGGESTED > 7.0 Estimated Average Glucose 100 Performing Lab: see note ML - [facility] FREE T3 Reviewed date:09/26/2024 04:08:12 PM Interpretation: Performing Lab: Notes/Report: [facility] , Free T3 2.73 2.18-3.98 pg/mL Performing Lab: see note ML - [facility] XR hip LT min 2V Reviewed date:12/12/2023 10:53:55 PM Interpretation: Performing Lab: Notes/Report: Source Facility: [place] [address] [place] [address] XRay Report Signed Patient: BARBARA BACA MR#: [id number] : 1970 Acct:[id number] Age/Sex: 53 / F ADM Date: 12/07/23 Loc: LAB Attending Dr: Eufemia Roca M.D. Ordering Physician: Eufemia Roca M.D. Date of Service: 12/07/23 Procedure(s): XR hip LT min 2V Accession Number(s): [id number] cc: Romero Dykes M.D.; Eufemia Roca M.D. [place] [address] Patient Name: BARBARA BACA MRN: [id number] date: 1970 Sex: F Assigned Patient Location: LAB Current Patient Location: [facility] Accession/Order Number: [id number] Exam Date: 12/07/2023 13:40 Report Date: 12/12/2023 [...] M.D. Signed By: 12/12/23657 DD/ 4 TD/TT: Bindery Technician: [place] [address] XRay Report Signed Patient: CARLY BACA MR#: [id number] : 1970 Acct:[id number] Age/Sex: 53 / F ADM Date: 12/07/23 Loc: LAB Attending Dr: Eufemia Roca M.D. Ordering Physician: Brad Roca M.D. Date of Service: 12/07/23 Procedure(s): XR hip LT min 2V Accession Number(s): [id number] cc: Romero Dykes M.D. ; Brad Roca M.D. [place] [address] Patient Name: BARBARA BACA MRN: [id number] date: 1970 Sex: F Assigned Patient Location: LAB Current Patient Location: SURGOUT Accession/Order Number: [id number] Exam Date: 13:40 Report Date: 12/12/2023 06:55 [...] M.D. Signed By: 12/12/23657 DD/ 4 TD/TT: Bindery Technician: SULEMAN tomosynthesis screening B I Reviewed date:10/24/2023 07:53:57 PM Interpretation: Performing Lab: Notes/Report: Source Facility: [place] [address] [place] [address] Mammography Report Signed Patient: BARBARA BACA MR#: [id number] : 1970 Acct:[id number] Age/Sex: 53 / F ADM Date: 10/22/23 Loc: MAMMO Attending Dr: Romero Dykes M.D. Ordering Physician: Romero Dykes M.D. Results: Date of Service: 10/22/23 Follow Up: Procedure(s): MM tomosynthesis screening BI Accession Number(s): [id number] cc: Romero Dykes M.D. Patient Name: BARBARA BACA MR#: [id number] : 1970 Exam Date: 10/22/2023 Ordering Doctor: [...] Treatments None Family Cancers None LOCATION: [facility] BREAST COMPOSITION: There are scattered areas of [...] M.D. Signed By: 10/22/231643 DD/ 42 TD/TT: Bindery Technician: The [address] [address] Mammography Report Signed Patient: CARLY BACA MR#: [id number] : 1970 Acct:[id number] Age/Sex: 53 / F ADM Date: 10/22/23 Loc: MAMMO Attending Dr: Millie Dykes M.D. Ordering Physician: Romero Dykes M.D. Results: Date of Service: 10/22/23 Follow Up: Procedure(s): MM tomosynthesis screening BI Accession Number(s): [id number] cc: Romero Dykes M.D. Patient Name: BARBARA BACA MR#: [id number] : 1970 Exam Date: 10/22/2023 Ordering Doctor: [...] Breast Canc er Risk 9.30% Personal Breast Canc er No Personal Ovarian Cancer No Treatments None Family Cancers None LOCATION: [facility] BREAST COMPOSITION: There are scattered [...] M.D. Signed By: 10/22/231643 DD/ 42 TD/TT: Bindery Technician: Reason For Referral No Information Medications Medication SIG (Take, Route, Frequency, Duration) Notes Start Date End Date Status Ondansetron 4 MG 1 tablet on the [facility] ue and allow to dissolve Orally qid [...] W/U Status Risk Notes Problem Iron deficiency (88044126) Iron deficiency (E61.1) Active confirmed Problem 52985530 Other intervertebral disc degeneration, lumbosacral region (M51.37) Active confirmed Problem Lumbar radiculopathy (164847956) Lumbar radiculopathy (M54.16) Active confirmed Problem Acute sinusitis (60919229) Acute sinusitis (J01.90) Active confirmed Problem Well adult (302522364) Well adult (Z00.00) Active confirmed Problem Cellulitis (547961676) Cellulitis (L03.90) Active confirmed Vital Signs Blood pressure diastolic 78 mm Hg 09/11/2024 Height 62 in 09/11/2024 Blood pressure systolic 118 mm Hg 09/11/2024 Weight 233 lbs 09/11/2024 BMI 42.61 kg/m2 09/11/2024 Encounters Encounter Location Date Provider Diagnosis [facility] [address] [address] 07/13/2024 Santo Jania [facility] [address] [place] [address] 08/15/2024 Santo Jania [facility] [address] [place] [address] 09/26/2024 Santo Jania [facility] [address] [place] [address] 12/20/2023 Santo Dykes [facility] [address] [address] 01/24/2024 Santo Jania [facility] [address] [place] [address] 02/01/2024 Santo Dykes Acute non-recurrent sinusitis, unspecified location J01.90 [facility] [address] [address] 02/28/2024 Santo Dykes [facility] [address] [place] [address] 04/28/2024 Santo Dykes [facility] [address] [place] [address] 06/30/2024 Santo Dykes [facility] [address] [place] [address] 10/21/2023 Santo Jania [facility] [address] [place] [address] 10/24/2023 Santo Dykes [facility] [address] [place] [address] 01/26/2024 Santo Dykes Acute non-recurrent sinusitis, unspecified location J01.90 and Nasal congestion R09.81 [facility] [address] [place] [address] 07/13/2024 Santo Dykes Well adult Z00.00 [facility] [address] [place] [address] 08/14/2024 Santo Hoy Lumbar radiculopathy M54.16 [facility] [address] [place] [address] 09/11/2024 Santo Hoy Lumbar radiculopathy M54.16 and Well adult Z00.00 Assessments Encounter Date Diagnosis (ICD Code) Assessment Notes Treatment Notes Treatment Clinical Notes Section Notes 01/26/2024 Acute non-recurrent sinusitis, unspecified location (ICD-10 - J01.90) Rest and drink more liquids, especially water. You may use a humidifier or vaporizer to help keep the drainage moist. Piwp-yww-bszbrjv Nasal Saline may help the stuffy and runny nose. Use Ibuprofen and or Tylenol as needed for fever, chills, body aches or pain. Children 5 years old should not be given aubb-jih-xxhosiw cough and cold medications such as guaifenesin and dextromethorphan. If you're over age 5, you may try nssi-vqm-fvyelhz cold medications such as guaifenesin and dextromethorphan, [...] (COMPLETE METABOLIC PANEL) 4 HEMOGLOBIN A1C (GLYCO) 09/11/2024 HEMOGLOBIN A1C (GLYCO) 08/02/2023 IRON, TOTAL 09/11/2024 LIPID PANEL (CHOL/TRIG/HDL/LDL) 09/12/19 25 LIPID PANEL (CHOL/TRIG/HDL/LDL) 08/02/19 24 CBC WITH DIFF 08/02/2023 Insulin Level 09/11/2024 STOOL OCCULT BLOOD 09/11/2024 CBC AUTO DIFF 09/02/2022 GLYCOHEMOGLOBIN A1C 09/02/2022 LIPID PROFILE 09/02/2022 TSH 09/02/2022 MG MAMM SCREEN 3D DUSTIN CAD 10/14/2022 MRI LSPINE WO CON 09/02/2022 XR LSPINE 2_3 VIEWS 09/02/2022 THYROID PANEL (T4/TSH/FREE T3) 5 CMP (COMP MET TINEO) w/eGFR CKD-EPI 2024 CBC WITH DIFF 09/11/2024 Next Appt Details Provider Name:Santo Sprague Jania, 05:00:00 PM, [address] [place], [address], Insurance Providers Payer Name Payer Address Payer Phone Subscriber Number Group Number Insured Name Patient Relationship to Insured Coverage Start Date Coverage End Date [employer] PPO PLUS LOCAL PLAN [address] [place] [address] [id number] Barbara Baca Self - patient is the insured 3 Medications Administered Medication Instructions Date of Administration Dosage Notes Kenalog-40 04/23/2023 120 mg 120 Ketorolac Tromethamine 04/23/2023 60 mg 60 Medical (General) History Medical History History ICD Code Ankle edema R60.0 Fatigue R53.83 COVID-19 079.89 COVID U07.1 Surgical History Surgery Date(Month/Year) hysterectomy D/C nerve ablasion 12/2023
--- NOTE | 2024-10-04 06:52 | MR_ITS ---
The [address] [address] Patient Name: JONATHAN BACA MRN: [id number] date: 1970 Sex: F Assigned Patient Location: MRI Current Patient Location: MRI Accession/Order Number: [id number] Exam Date: 10/04/2024 10:57 Report Date: 10/04/2024 11:10 At the request of: PAPA SMALLS NP Procedure: MR lumbar spine wo con MRI lumbar spine performed without contrast INDICATION: Chronic lumbar pain radiating to left hip COMPARISON: MRI 05/02/2023 FINDINGS: The lumbar vertebral heights, alignment unremarkable. Endplate marrow changes changes involving L5-S1. No evidence of acute edema to suggest acute compression fracture. Multilevel posterior degeneration greatest L4-S1. Conus medullaris terminates normally at L1-2. Minimal disc desiccation L2-L5. Moderate severe diffuse disc space narrowing L5-S1. T12-L1: Minimal central protrusion exerting caudally. No significant indentation canal or neural from narrowing L1-L4: No significant disc disease, disc protrusion, central canal or neural from narrowing identified. L4-5: Disc desiccation. No focal protrusion. Moderate severe facet arthropathy with facet joint effusions, greatest right. Right-sided synovial cyst dorsally. L5-S1: Left foraminal zone disc osteophyte complex. Moderate right moderate severe left facet arthropathy mild to moderate left neural foraminal narrowing. Right foramen and canal patent. MR/MR lumbar spine wo con IMPRESSION: Multilevel posterior elements degenerative changes greatest L4-S1. Degenerative changes greatest L5-S1 with clmv-dz-stjegtkg predominantly left-sided neural foraminal narrowing. Impression dictated by: Tariq Samano M.D. 10/04/2024 11:10 AM Dictation Location: [place] [address] Electronically authenticated by: [id number] Y Date: 10/04/2024 11:10
== END 2024-10-04 06:49 | disposition home or self-care (01) ==
LOC: MRI 06:48
PROVIDERS: PCP Family Medicine; Visit Provider Nurse Practitioner
DX: M48.062 Spinal stenosis, lumbar region with neurogenic claudication (principal); M47.816 Spondylosis without myelopathy or radiculopathy, lumbar region; M51.369 Other intervertebral disc degeneration, lumbar region without mention of lumbar back pain or lower extremity pain
CPT/HCPCS: 72148

== ENCOUNTER 2024-10-18 07:53 | Outpatient (OUT) | payer BC, SELFPAY ==
--- OUTSIDE RECORDS SUMMARY | 2024-10-18 07:56 | XMS_ITS | CCD ---
Author Organization [facility] CliniSyla Care Team Providers Care It Program Auditor Name Role Phone Monika Matthews Primary Care Physician [phone] DR MONIKA MATTHEWS Admitting Unavailable CASSIE, DR [...] Value Interpretation Reference Range Facility Covid-19 PCR ([facility])on 02-15 SARS-CoV-2 (COVID-19) RNA YAMILET+probe Ql (Unsp spec) Not detected Normal NOT DETECTED [facility] Comment on above: Result Comment: When diagnostic [...] for this test is supported by the Dope Pourer of Health and Human Service's declaration that [...] Performed By: #### C VDTB ####[facility] [address] [place] [address]Dr. Dioni Mayorga INFLUENZA A AND B AGon 03-02 [facility] SEE BELOW Normal [facility] Comment on above: Result Comment: Nega tive for Flu A protein angiten. Infection due to Flu A cannot be ruled out. Flu A angiten in the sample may be below the detection limit of the test. Performed By: #### I NFLUAB #### [facility] [address] [place] [address] Dr. Dioni Mayorga [facility] SEE BELOW Normal [facility] Comment on above: Result Comment: Nega tive for Flu B protein antigen. Infection due to Flu B cannot be ruled out. Flu B antigen in the sample may be below the detection limit of the test. Performed By: #### I NFLUAB #### [facility] [address] [place] [address] Dr. Dioni Mayorga INFLUENZA A AG Negative Normal NEGATIVE SEE COMMENT [facility] Comment on above: Performed By: #### I NFLUAB #### [facility] [address] [place] [address] Dr. Dioni Mayorga INFLUENZA B AG Negative Normal NEGATIVE SEE COMMENT [facility] Comment on above: Performed By: #### I NFLUAB #### [facility] [address] [place] [address] Dr. Dioni Mayorga ASYMPTOMATIC COVID-19 ANTIGE Non 12-15-2021 EUA Statement SEE BELOW Normal [facility] Comment on above: Result Comment: This [...] By: #### C VDAGA #### [facility] [address] [place] [address] Dr. Dioni Mayorga SARS-CoV-2 (COVID-19) RNA YAMILET+probe Ql (Unsp spec) Negative Normal NEGATIVE [facility] Comment on above: Result Comment: Nega tive results are presumptive. They do not preclude infection and should not be used as the sole basis for treatment decisions. Additional confirmatory testing by a molecular method should be considered. Performed By: #### C VDAGA #### [facility] [address] [place] [address] Dr. Dioni Mayorga Covid-19 PCR ([facility])on 11-16 SARS-CoV-2 (COVID-19) RNA YAMILET+probe Ql (Unsp spec) Detected Critically abnormal NOT DETECTED [facility] Comment on above: Result Comment: This test is not yet approved or cleared by the [place] FDA. When there are no FDA-approved or cleared tests available, and other criteria are met, FDA can make tests available under an emergency access mechanism called an Emergency Use Authorization (EUA). The EUA for this test is supported by the Dope Pourer of Health and Human Service's declaration that [...] #### C [facility] ####[facility] [address] [place], [place] [address]PjFrieda Mayorga MG MAMM SCREEN 3D DUSTIN CADon 09-17-2021 MG MAMM SCREEN 3D DUSTIN CAD Patient: BARBARA BACA Exam Date: 09/17/2021 : 1970 Gender:F Ordering : DR MONIKA MATTHEWS . Admission #: [id number] Family : Order #: [id number] CLICK HERE TO VIEW EXAM RADIOLOGY REPORT [...] Family Cancers None LOCATION: [facility] BREAST COMPOSITION: Scattered areas fibroglandular density. FINDINGS: [...] on 09/17/2021 at 13:13 Normal [facility] Formson 09-04-2021 Forms [id number] #1.00CD:127 Normal [facility] Patient Educationon 09-05-19 22 Patient Education [...] Take ove (more content not included)... Normal [facility] Physician Referralon 022 Physician Referral [id number]#1.00CD:127 Normal [facility] Urology Office/Clinic Noteon 09-04-2021 Urology [...] had hysterectomy about 10 yrs ago. 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 [...] E&M of New Patient Moderate 45-59 Min 42121 Follow-up With When Contact Information pt will [...] - Not Given Postpone due to refusal [facility] Comment on above: Result Comment: Elec tronically Signed By: MICHAEL NUGENT PA-C\.br\Date and Time Signed: 09/04/21 09:42 EDT Ambulatory Visit Summaryon 0 09-03-2021 Ambulatory Visit Summary BARBARA BACA :1970 Visit Date:09/03/2021 Ambulatory Visit Instructions Your Diagnosis Stress incontinence Tests Performed Urnls Dip Stick Auto w/o Microscopy POC 50298 Your Care Team Attending Physician - MICHAEL [...] Urnls Dip Stick Auto w/o Microscopy POC 88590 (09/03/2021) Bilirubin Urine Dipstick - Negative Blood Urine Dipstick - Trace-intact Glucose Urine Dipstick - Negative Ketones Urine Dipstick - Negative Leukocytes Urine Dipstick - Negative Nitrite Urine Dipstick - Negative Protein Urine Dipstick - Negative Specific [place] Urine Dipstick - 1.020 Urine Appearance Urine Dipstick - Clear Urine Color Urine Dipstick - Yellow Urobilinogen Urine Dipstick - Normal 0.2-1 EU/dl pH Urine Dipstick - 5 Medications and Immunizations Administered Not Given SARS-CoV-2 mRNA (tozinameran 5y-11y) vac, Postpone due to refusal Allergies No Known Allergies No Known Medication Allergies Normal [facility] CBC AUTO DIFFon 08-02-2021 BASO # 0.0 103/ul Normal 0.0-0.1 [facility] Comment on above: Performed By: #### C BC #### [facility] [address] [place] [address] Dr. Dioni Mayorga Basophils/100 WBC (Bld) 0.4 % Normal 0.2-2.0 [facility] Comment on above: Performed By: #### C BC #### [facility] [address] [place] [address] Dr. Dioni Mayorga EO # 0.1 103/ul Normal 0.0-0.7 [facility] Comment on above: Performed By: #### C BC #### [facility] [address] [place] [address] Dr. Dioni Mayorga Eosinophils/100 WBC (Bld) 1.0 % Normal 0.9-7.0 [facility] Comment on above: Performed By: #### C BC #### [facility] [address] [place] [address] Dr. Dioni Mayorga Erythrocyte distribution width (RBC) [Ratio] 13.4 % Normal 11.0-15.0 [facility] Comment on above: Performed By: #### C BC #### [facility] [address] [place] [address] Dr. Dioni Mayorga Hematocrit (Bld) [Volume fraction] 45.2 % Normal 36.0-48.0 [facility] Comment on above: Performed By: #### C BC #### [facility] [address] [place] [address] Dr. Dioni Mayorga Hemoglobin (Bld) [Mass/Vol] 14.5 g/dL Normal 12.0-16.0 [facility] Comment on above: Performed By: #### C BC #### [facility] [address] [place] [address] Dr. Dioni Mayorga IG # 0.02 10e3/ul Normal 0.00-0.03 [facility] Comment on above: Performed By: #### C BC #### [facility] [address] [place] [address] Dr. Dioni Mayorga IG % 0.3 % Normal 0.0-0.5 [facility] Comment on above: Performed By: #### C BC #### [facility] [address] [place] [address] Dr. Dinoi Mayorga LYMPH # 2.7 103/ul Normal 1.2-3.8 [facility] Comment on above: Performed By: #### C BC #### [facility] [address] [place] [address] Dr. Dioni Mayorga Lymphocytes/100 WBC (Bld) 38.7 % Normal 20.5-60.0 [facility] Comment on above: Performed By: #### C BC #### [facility] [address] [place] [address] Dr. Dioni Mayorga MANUAL DIFF REQ NO Normal [facility] Comment on above: Performed By: #### C BC #### [facility] [address] [place] [address] Dr. Dioni Mayorga MCH (RBC) [Entitic mass] 28.4 pg Normal 26.7-34.0 [facility] Comment on above: Performed By: #### C BC #### [facility] [address] [place] [address] Dr. Dioni Mayorga MCHC (RBC) [Mass/Vol] 32.1 g/dL Normal 29.9-35.2 [facility] Comment on above: Performed By: #### C BC #### [facility] [address] [place] [address] Dr. Dioni Mayorga MCV (RBC) [Entitic vol] 88.5 fL Normal 81.0-99.0 [facility] Comment on above: Performed By: #### C BC #### [facility] [address] [place] [address] Dr. Dioni Mayorga MONO # 0.4 103/ul Normal 0.3-0.8 [facility] Comment on above: Performed By: #### C BC #### [facility] [address] [address] [address] Dioni Mayorga Monocytes/100 WBC (Bld) 6.2 % Normal 1.7-12.0 [facility] Comment on above: Performed By: #### C BC #### [facility] [address] [address] [address] Dioni Mayorga NEUT # 3.7 103/ul Normal 1.4-6.5 [facility] Comment on above: Performed By: #### C BC #### [facility] [address] [address] [address] Dioni Mayorga Neutrophils/100 WBC (Bld) 53.4 % Normal 43.0-75.0 [facility] Comment on above: Performed By: #### C BC #### [facility] [address] [place] [address] Dr. Dioni Mayorga Platelet mean volume (Bld) [Entitic vol] 10.4 fL Normal 9.5-13.5 [facility] Comment on above: Performed By: #### C BC #### [facility] [address] [address] [address] Dioni Mayorga PLT 340 103/ul Normal 150-450 [facility] Comment on above: Performed By: #### C BC #### [facility] [address] [address] [address] Dioni Mayorga RBC 5.11 106/ul Normal 4.20-5.40 [facility] Comment on above: Performed By: #### C BC #### [facility] [address] [place] [address] Dr. Dioni Mayorga WBC 6.9 103/ul Normal 4.0-11.0 [facility] Comment on above: Performed By: #### C BC #### [facility] [address] [place] [address] Dr. Dioni Mayorga FREE T3on 08-02-2021 FREE T3 1.49 pg/mlL Critically low 2.18-3.98 [facility] Comment on above: Performed By: #### F T3, LIPID, CMP, T7, TSH #### [facility] [address] [address] [address] Dioni Mayorga FREE THYROXINE INDEX T7on FTI 2.77 Normal 1.30-4.50 [facility] Comment on above: Performed By: #### F T3, LIPID, CMP, T7, TSH #### [facility] [address] [address] [address] Dioni Mayorga T3U 36.0 % Normal 30.0-39.0 [facility] Comment on above: Performed By: #### F T3, LIPID, CMP, T7, TSH #### [facility] [address] [place] [address] Dr. Dioni Mayorga T4 [Mass/Vol] 7.70 ug/dL Normal 4.80-13.90 [facility] Comment on above: Performed By: #### F T3, LIPID, CMP, T7, TSH #### [facility] [address] [address] [address] Dioni Mayorga GLYCOHEMOGLOBIN A1Con 2021 ADA RECOMMENDATION SEE BELOW Normal [facility] Comment on above: Result Comment: ADA RECOMMENDED LIMIT 4.0 - 6.0 ADA THERAPEUTIC TARGET < 7.0 ACTION SUGGESTED > 7.0 Performed By: #### A 1C #### [facility] [address] [place] [address] Dr. Dioni Mayorga Glucose [Mass/Vol] 111 mg/dL Normal [facility] Comment on above: Performed By: #### A 1C #### [facility] [address] [place] [address] Dr. Dioni Mayorga HbA1c (Bld) [Mass fraction] 5.5 % Normal 4.5-6.2 [facility] Comment on above: Performed By: #### A 1C #### [facility] [address] [place] [address] Dr. Dioni Mayorga LIPID PROFILEon 08-02-2021 CHOL-HDL RATIO NORM SEE BELOW Normal [facility] Comment on above: Result Comment: 3.3 - 4.4 LOW RISK 4.4 - 7.1 AVERAGE RISK 7.1 - 11.0 MODERATE RISK >11.0 HIGH RISK Performed By: #### F T3, LIPID, CMP, T7, TSH #### [facility] [address] [address] [address] Dioni Mayorga Cholesterol [Mass/Vol] 211 mg/dL Critically high <=200 [facility] Comment on above: Performed By: #### F T3, LIPID, CMP, T7, TSH #### [facility] [address] [address] [address] Dioni Mayorga Cholesterol in HDL [Mass/Vol] 48 mg/dL Normal 40-60 [facility] Comment on above: Performed By: #### F T3, LIPID, CMP, T7, TSH #### [facility] [address] [place] [address] Dr. Dioni Mayorga Cholesterol in LDL [Mass/Vol] 148.6 mg/dL Normal [facility] Comment on above: Performed By: #### F T3, LIPID, CMP, T7, TSH #### [facility] [address] [place] [address] Dr. Dioni Mayorga Cholesterol.total/Ch olesterol in HDL [Mass ratio] 4.4 {ratio} Normal [facility] Comment on above: Performed By: #### F T3, LIPID, CMP, T7, TSH #### [facility] [address] [place] [address] Dr. Dioni Mayorga HDL NORMAL > or = 60 mg/dl - LOW CARDIOVASCULAR RISK <40 mg/dl - HIGH CARDIOVASCULAR RISK Normal [facility] Comment on above: Performed By: #### F T3, LIPID, CMP, T7, TSH #### [facility] [address] [place] [address] Dr. Dioni Mayorga LDL CALC NORMAL SEE BELOW Normal [facility] Comment on above: Result Comment: <100 mg/dl OPTIMAL 100 - 129 mg/dl NEAR OR ABOVE OPTIMAL 130 - 159 mg/dl BORDERLINE HIGH 160 - 189 mg/dl HIGH >190 mg/dl VERY HIGH Performed By: #### F T3, LIPID, CMP, T7, TSH #### [facility] [address] [place] [address] Dr. Dioni Mayorga Triglyceride [Mass/Vol] 72 mg/dL Normal <=150 [facility] Comment on above: Performed By: #### F T3, LIPID, CMP, T7, TSH #### [facility] [address] [address] [address] Dioni Mayorga VLDL CALC 14.4 mg/dL Normal [facility] Comment on above: Performed By: #### F T3, LIPID, CMP, T7, TSH #### [facility] [address] [address] [address] Dioni Mayorga PROF 14(COMP METB)on 022 Albumin [Mass/Vol] 3.5 g/dL Normal 3.4-5.0 [facility] Comment on above: Performed By: #### F T3, LIPID, CMP, T7, TSH #### [facility] [address] [address] [address] Dioni Mayorga Albumin/Globulin [Mass ratio] 1.0 {ratio} Normal [facility] Comment on above: Performed By: #### F T3, LIPID, CMP, T7, TSH #### [facility] [address] [address] [address] Dioni Mayorga ALP [Catalytic activity/Vol] 62 U/L Normal 46-116 [facility] Comment on above: Performed By: #### F T3, LIPID, CMP, T7, TSH #### [facility] [address] [address] [address] Dioni Mayorga ALT [Catalytic activity/Vol] 20 U/L Normal 14-59 [facility] Comment on above: Performed By: #### F T3, LIPID, CMP, T7, TSH #### [facility] [address] [address] [address] Dioni Mayorga Anion gap [Moles/Vol] 14.0 mmol/L Normal [facility] Comment on above: Performed By: #### F T3, LIPID, CMP, T7, TSH #### [facility] [address] [address] [address] Dioni Mayorga AST [Catalytic activity/Vol] 12 U/L Critically low 15-37 [facility] Comment on above: Performed By: #### F T3, LIPID, CMP, T7, TSH #### [facility] [address] [address] [address] Dioni Mayorga Bilirubin [Mass/Vol] 0.4 mg/dL Normal 0.2-1.0 [facility] Comment on above: Performed By: #### F T3, LIPID, CMP, T7, TSH #### [facility] [address] [place] [address] Dr. Dioni Mayorga Calcium [Mass/Vol] 8.7 mg/dL Normal 8.5-10.1 [facility] Comment on above: Performed By: #### F T3, LIPID, CMP, T7, TSH #### [facility] [address] [place] [address] Dr. Dioni Mayorga Chloride [Moles/Vol] 105 mmol/L Normal 98-107 [facility] Comment on above: Performed By: #### F T3, LIPID, CMP, T7, TSH #### [facility] [address] [place] [address] Dr. Dioni Mayorga CO2 [Moles/Vol] 26.4 mmol/L Normal 21.0-32.0 [facility] Comment on above: Performed By: #### F T3, LIPID, CMP, T7, TSH #### [facility] [address] [place] [address] Dr. Dioni Mayorga Creatinine [Mass/Vol] 0.83 mg/dL Normal 0.55-1.02 [facility] Comment on above: Performed By: #### F T3, LIPID, CMP, T7, TSH #### [facility] [address] [place] [address] Dr. Dioni Mayorga EGFR-AF GREEK >60 Normal >=60 [facility] Comment on above: Performed By: #### F T3, LIPID, CMP, T7, TSH #### [facility] [address] [place] [address] Dr. Dioni Mayorga EGFR-NON AF GREEK >60 Normal >=60 [facility] Comment on above: Performed By: #### F T3, LIPID, CMP, T7, TSH #### [facility] [address] [address] [address] Dioni Mayorga Globulin (S) [Mass/Vol] 3.5 g/dL Normal [facility] Comment on above: Performed By: #### F T3, LIPID, CMP, T7, TSH #### [facility] [address] [address] [address] Dioni Mayorga Glucose [Mass/Vol] 78 mg/dL Normal 74-106 [facility] Comment on above: Performed By: #### F T3, LIPID, CMP, T7, TSH #### [facility] [address] [place] [address] Dr. Dioni Mayorga Potassium [Moles/Vol] 4.4 mmol/L Normal 3.5-5.1 [facility] Comment on above: Performed By: #### F T3, LIPID, CMP, T7, TSH #### [facility] [address] [place] [address] Dr. Dioni Mayorga Protein [Mass/Vol] 7.0 g/dL Normal 6.4-8.2 [facility] Comment on above: Performed By: #### F T3, LIPID, CMP, T7, TSH #### [facility] [address] [place] [address] Dr. Dioni Mayorga Sodium [Moles/Vol] 141 mmol/L Normal 136-145 [facility] Comment on above: Performed By: #### F T3, LIPID, CMP, T7, TSH #### [facility] [address] [place] [address] Dr. Dioni Mayorga Urea nitrogen [Mass/Vol] 16.0 mg/dL Normal 7.0-18.0 [facility] Comment on above: Performed By: #### F T3, LIPID, CMP, T7, TSH #### [facility] [address] [place] [address] Dr. Dioni Mayorga Urea nitrogen/Creatinine [Mass ratio] 19.3 mg/mg Normal [facility] Comment on above: Performed By: #### F T3, LIPID, CMP, T7, TSH #### [facility] [address] [place] [address] Dr. Dioni Mayorga TSHon 08-02-2021 TSH 1.339 uIU/mL Normal 0.358-3.740 [facility] Comment on above: Performed By: #### F T3, LIPID, CMP, T7, TSH #### [facility] [address] [address] [address] Dioni Mayorga Vital Signs Date Time Vital Sign Value Performing Clinician Faci lity 09-03-2021 08:51-0400 Blood Pressure Location MICHAEL RAFFI [facility] 09-03-2021 08:51-0400 Diastolic blood pressure 96 mm[Hg] MICHAEL NUGENT [facility] 09-03-2021 08:51-0400 Heart rate 106 /min MICHAEL SERNARY [facility] 09-03-2021 08:51-0400 Systolic blood pressure 138 mm[Hg] MICHAEL NUGENT [facility] Encounters Encounter Date Encounter Type Care Provider Facility Start: 07-31-2024 End: 07-31-2024 ambulatory Harish Cannon MD Facility:[facility] Start: 06-19-2024 End: 06-19-2024 [facility] [place] [facility] Start: 09-13-2023 End: 09-13-2023 ambulatory Harish Cannon MD Facility:[facility] Start: 03-02-2022 End: 03-02-2022 ambulatory SALVADOR GROSS Facility:[facility] Start: 12-15-2021 End: 12-15-2021 ambulatory SALVADOR GROSS Facility:[facility] Start: 12-09-2021 End: 12-09-2021 ambulatory SALVADOR GROSS Facility:[facility] Start: 09-17-2021 End: 09-18-[address] MONIKA MATTHEWS Facility:[facility] Start: 09-03-[address] MONIKA MATTHEWS Facility :[facility] Start: 09-03-2021 End: 09-03-2021 Patient encounter procedure MICHAEL NUGENT [facility] Start: 08-05-2021 Encounter for genera l adult medical examination without abnormal findings DR MONIKA MATTHEWS [facility] Start: 08-02-2021 End: 08-03-[address] MONIKA MATTHEWS Facility:[facility] Start: 08-02-2021 End: 08-03-2021 Encounter for general adult medical examination without abnormal findings DR MONIKA MATTHEWS Facility:[facility] Procedures Date Procedure Procedure Detail Performing Clinician Hysterectomy MICHAEL NUGENT Immunizations Immunization Date Immunization Notes Care Provider Fa cility NEGATED: Highlighted row has not occurred!09-03-2021 SARS-CoV-2 mRNA (tozinameran 5y-11y) vaccine MICHAEL NUGENT [facility] Payers Date Payer Category Payer Unknown [id number] 2022 Unknown 2019 Unknown [id number] 1970 Unknown [id number] 2.16.84 [id number] 1970 Unknown [id number] 2.16.84 [id number] 1970 Unknown [id number] .16.84 [id number] 1972 Unknown [id number] 2.16.84 [id number] 1972 Unknown [id number] .16.84 [id number] 1972 Unknown [id number] 2.16.84 [id number] 1972 Unknown [id number] 2.16. [id number] 1972 Unknown [id number] 2.16. [id number] 1972 Unknown [id number] 2.16. [id number] Social History Date Type Detail Facility Start: 09-03-2021 Tobacco smoking status Never s moked tobacco (finding) [facility] Tobacco smoking status Never [facility] Sex Assigned At Female [facility] Functional Status Date Assessment Result Facility 09-03-2021 Functional Status N/A [facility] Hospital Discharge instructions 09-03-2021 Note Date & [...] nerve stimulation). For women, using a medical receptionist assistant to prevent urine leaks. This is [...] right after experiencing incontinence. General instructions Take qcfw-rum-ondoots and prescription medicines only as told by [...] 03/11/2005 Document Revised: 02/11/2018 Document Reviewed: 05/13/2017 [email or web address] Patient Education Primordial. Follow Up Care 08/06/2021 08:10:07 With:pt will call once she decides how she would like to proceed Address:Unknown When: Unknown [facility] Evaluation + Plan note Note Date & Type Note Facility Evaluation + Plan note Future Appointments Appointment Date:09/17/2021 08:30:00 AM Scheduled Provider: Location:[facility] Appointment Type:URO Nurse Visit [facility] Hospital course Narrative Note Date & Type Note Facility Hospital course Narrative No data available for this section [facility] Progress note Note Date & Type Note Facility Progress note No data available for this section [facility] Summary Purpose Family History No Family History Records FoundNo Family History Records FoundNo Family History Records Found Advance Directives No Advanced Directives Records FoundNo Advanced Directives Records FoundNo Advanced Directives Records Found Additional Source Comments Care Team (unrecognized sect ion and content) Personnel Name: Monika Matthews MD Address: [address] [place] [address] INFORMATION SOURCE (unrecogn ized section and content) DATE CREATED AUTHOR 09/18/2021 [facility] DATE CREATED AUTHOR AUTHOR'S ORGANIZ ATION 03/02/2022 [facility] DATE CREATED AUTHOR AUTHOR'S ORGANIZ ATION 08/09/2024 [facility] FOR RECORDS PERTAINING TO PATIENTS WHO [...] BE BASED ON THE PRIMARY CLINICAL RECORDS. [facility]. provides no warranty or guarantee of the accuracy or completeness of information in this document.
--- NOTE | 2024-10-18 08:12 | PM.CN ---
Consult Note: HPI Data of Consult Patient: known to practice within the last 3 years Requesting Physician: Therese Montelongo NP Primary Care Provider: Romero Dykes MD Consult Narrative Reason for consult: f/u Narrative: Barbara Ovalle a pleasant 54 year old female presents for evaluation and management of chronic low back pain. Longstanding hx of low back pain secondary to lumbar spondylosis and lumbar DDD that has failed to significantly improve with >6 weeks of provider guided HEP, PT, heat, ice. utilizing baclofen, mobic, and gabapentin with mild benefit without side effects. pain remains unchanged, 4/10 aching at this time, increasing to 8/10 in the AM and by end of day in low back. recently underwent lumbar MRI with results below cc:: CC: Therese Montelongo NP [facility] Medical History Low back ache ?M54.50 - Low back pain, unspecified (ICD-10) Obesity ?E66.9 - Obesity, unspecified (ICD-10) Surgical History H/O tooth extraction ?K08.409 - Partial loss of teeth, unspecified cause, unspecified class (ICD-10) H/O: hysterectomy ?Z90.710 - Acquired absence of both cervix and uterus (ICD-10) Social History Smoking status: Never smoker Meds Home Medications and Allergies Home Medications ?Medication ?Instructions ?Recorded ?Confirmed ?Type loratadine-pseudoephedrine ER 10 1 tab PO DAILY 11/02/22 07/31/24 History mg-240 mg tablet,extended [id number] (Claritin-D 24 Hour) baclofen 10 mg tablet 10 mg PO DAILY PRN muscle spasm 11/17/23 07/31/24 History acetaminophen 325 mg tablet 325 mg PO Q6H PRN pain 12/21/23 07/31/24 History (Tylenol) gabapentin 100 mg capsule 100 mg PO Q8H 01/04/24 07/31/24 History gabapentin 100 mg capsule See Rx Instructions .Route 03/29/24 07/31/24 Rx .COMPLEX #60 caps meloxicam 7.5 mg tablet 7.5 mg PO BID #60 tabs 07/19/24 07/31/24 Rx gabapentin 300 mg capsule 300 mg PO BID #60 caps 08/10/24 Rx baclofen 10 mg tablet 10 mg PO DAILY #30 tabs 08/21/24 Rx Allergies Allergy/AdvReac Type Severity Reaction Status Date / Time No Known Drug Allergies Allergy Verified 07/31/24 11:02 Exam Constitutional Documenting provider has reviewed patient's vital signs: yes Common normals: no apparent distress, oriented x3, healthy appearing, alert and well nourished General appearance: cooperative HENMT Common normals: normocephalic, hearing grossly normal bilaterally and moist oral mucous membranes Head and scalp: normocephalic Eye Common normals: PERRL Pupil: PERRL Neck & C-Spine Common normals: full ROM General: normal visual inspection Chest Common normals: inspection of chest normal Respiratory Common normals: normal respiratory effort, no retractions and no use of accessory muscles Back & Pelvis Lumbar spine/lower back: lumbar ROM normal, pain with ROM and lumbar spinal tenderness Lumbar spinal tenderness location: L2, L3 and L4 Sacroiliac joints: SI joints normal Other: notes increased low back pain with activity and forward flexion Extremity Common normals: normal to inspection and full ROM Neuro Common normals: oriented x3 Sensorium/orientation: alert Gait (neuro): normal gait Psych Common normals: mental status grossly normal, thought process normal, cooperative, affect normal, speech normal and activity/motor behavior normal Speech: normal speech Thought process: normal thought process Results Imaging lumbar MRI : Attestation: I have reviewed the pertinent imaging results. Radiologist's impression: The lumbar vertebral heights, alignment unremarkable. Endplate marrow changes changes involving L5-S1. No evidence of acute edema to suggest acute compression fracture. Multilevel posterior degeneration greatest L4-S1. Conus medullaris terminates normally at L1-2. Minimal disc desiccation L2-L5. Moderate severe diffuse disc space narrowing L5-S1. T12-L1: Minimal central protrusion exerting caudally. No significant indentation canal or neural from narrowing L1-L4: No significant disc disease, disc protrusion, central canal or neural from narrowing identified. L4-5: Disc desiccation. No focal protrusion. Moderate severe facet arthropathy with facet joint effusions, greatest right. Right-sided synovial cyst dorsally. L5-S1: Left foraminal zone disc osteophyte complex. Moderate right moderate severe left facet arthropathy mild to moderate left neural foraminal narrowing. Right foramen and canal patent. Additional Findings Additional findings: If on a controlled substance or opioids, I have checked an [place] report on this patient and there are no aberrancies noted in the prescribing history.??If on a controlled substance or opioid a drug screen was completed and reviewed within the last year, and if there has not been a drug screen completed we ordered one today to monitor higher risk, state monitored pain medication use. As part of providing excellent, safe, comprehensive care, the following was completed at our patient's visit: 1. A medication reconciliation and review to ensure accurate knowledge of current/active medications, including asking our patients to inform us about any [id number] medications or herbal remedies/nutritional supplements/alternative remedies. 2. A review to specifically ensure our patients have had annual screening for screening for depression, screening for tobacco use, and screening for unhealthy alcohol use. For concerning screenings had a discussion with the patient, provided patient education, and recommended follow-up with primary care provider when appropriate. If patient noted with a risk of falling, they received education on strength, gait, and balance training to prevent future risk of falling. Portions of this note may have been carried over from the previous visit and updated as appropriate. Please note this office utilizes paper charting in addition to the electronic medical record. A list of current medications, vitals, and PMH is available there as the clinical staff outside of myself do not have access to [employer] charting during the clinic day operations. As part of providing quality comprehensive care the current medications, vitals, and PMH were reviewed in the paper chart. Assessment and Plan Assessment and Plan (1) Vertebrogenic low back pain: (2) Lumbar degenerative disc disease: Plan The patient has had over 3 months of moderate to severe low back pain with functional impairment and inadequate response to conservative care including NSAIDS (unless there are contraindication such as concurrent blood thinners), multiple oral or topical pain medications, and home exercise program/physical therapy.? Patient has completed >6 weeks of guided home exercise program and/or formal physical therapy program without relief of their symptoms.? The Oswestry Disability Index was completed, and the patient scored a 28%.? The patient noted the following:?? moderate to severe pain impacting ADLs, sitting, standing, sleeping, walking, social life, travel lumbar MRI reviewed, notable modic changes at l5-s1 however we will request a new read as the radiologist did not stage/grade these changes. plan to proceed with l5,s1 intracept under fluoroscopy and mac sedation with Dr Cannon continue gabapentin 100mg capsules BID and up to 300mg HS continue baclofen 10mg PRN pain/spasms continue mobic 7.5mg BID PRN pain continue HEP as tolerated
== END 2024-10-18 07:54 | disposition home or self-care (01) ==
LOC: PM 07:54
PROVIDERS: PCP Family Medicine; Visit Provider Nurse Practitioner
DX: M54.51 Vertebrogenic low back pain (principal); M51.369 Other intervertebral disc degeneration, lumbar region without mention of lumbar back pain or lower extremity pain
CPT/HCPCS: G0463

== ENCOUNTER 2024-10-23 07:25 | Outpatient (OUT) | payer BC, SELFPAY ==
--- NOTE | 2024-10-23 07:27 | MM_ITS ---
Patient Name: JONATHAN BACA MR#: [id number] : 1970 Exam Date: 10/23/2024 Ordering Doctor: DR MONIKA MATTHEWS . RADIOLOGY REPORT PROCEDURE: MM TOMOSYNTHESIS SCREENING BI COMPARISON: MM TOMOSYNTHESIS SCREENING BI, 10/22/2023. MM TOMOSYNTHESIS SCREENING BI, 10/20/2022. MG MAMM SCREEN 3D DUSTIN CAD, 09/17/2021. MG MAMM DUSTIN SCRN W CAD DIG, 06/21/2013. INDICATIONS: Screening Calculator Name NCI Breast Cancer Risk Assessment Tool 5 Year Breast Cancer Risk 1.10% Lifetime Breast Cancer Risk 9.10% Personal Breast Cancer No Personal Ovarian Cancer No Treatments None Family Cancers None LOCATION: [facility] BREAST COMPOSITION: There are scattered areas of fibroglandular density. FINDINGS: RIGHT BREAST: No significant suspicious finding. LEFT BREAST: No significant suspicious finding. DIAGNOSTIC CATEGORY 1--NEGATIVE. RECOMMENDATIONS: ROUTINE MAMMOGRAM AND CLINICAL EVALUATION IN 12 MONTHS. Dictated by: Mumtaz Welch DO on 10/23/2024 at 12:09 Approved by: Mumtaz Welch DO on 10/23/2024 at 12:10
--- OUTSIDE RECORDS SUMMARY | 2024-10-23 07:28 | XMS_ITS | CCD ---
Author Organization [facility] CliniSyid Care Team Providers Care Industrial Technician Name Role Phone Monika Matthews Primary [...] Value Interpretation Reference Range Facility Covid-19 PCR ([facility])on 02-15 SARS-CoV-2 (COVID-19) RNA YAMILET+probe Ql (Unsp spec) Not detected Normal NOT DETECTED [facility] Comment on above: Result [...] for this test is supported by the Periodicals Library Assistant of Health and Human Service's declaration [...] be used). Performed By: #### C VDTB ####[facility] [id number] [address]Dr. Dioni Mayorga INFLUENZA A AND B AGon 03-02 [facility] SEE BELOW Normal [facility] Comment on above: Result Comment: Nega tive for Flu A protein angiten. Infection due to Flu A cannot be ruled out. Flu A angiten in the sample may be below the detection limit of the test. Performed By: #### I NFLUAB #### [facility] [address] [place] [address] Dr. Dioni Mayorga [facility] SEE BELOW Normal [facility] Comment on above: Result Comment: Nega tive for Flu B protein antigen. Infection due to Flu B cannot be ruled out. Flu B antigen in the sample may be below the detection limit of the test. Performed By: #### I NFLUAB #### [facility] [address] [place] [address] Dr. Dioni Mayorga INFLUENZA A AG Negative Normal NEGATIVE SEE COMMENT [facility] Comment on above: Performed By: #### I NFLUAB #### [facility] [address] [place] [address] Dr. Dioni Mayorga INFLUENZA B AG Negative Normal NEGATIVE SEE COMMENT [facility] Comment on above: Performed By: #### I NFLUAB #### [facility] [address] [place] [address] Dr. Dioni Mayorga ASYMPTOMATIC COVID-19 ANTIGE Non 12-15-2021 EUA Statement SEE BELOW Normal [facility] Comment on above: Result [...] sooner. Performed By: #### C VDAGA #### [facility] [address] [place] [address] Dr. Dioni Mayorga SARS-CoV-2 (COVID-19) RNA YAMILET+probe Ql (Unsp spec) Negative Normal NEGATIVE [facility] Comment on above: Result Comment: Nega tive results are presumptive. They do not preclude infection and should not be used as the sole basis for treatment decisions. Additional confirmatory testing by a molecular method should be considered. Performed By: #### C VDAGA #### [facility] [address] [place] [address] Dr. Dioni Mayorga Covid-19 PCR ([facility])on 11-16 SARS-CoV-2 (COVID-19) RNA YAMILET+probe Ql (Unsp spec) Detected Critically abnormal NOT DETECTED [facility] Comment on above: Result Comment: This test is not yet approved or cleared by the [place] FDA. When there are no FDA-approved or cleared tests available, and other criteria are met, FDA can make tests available under an emergency access mechanism called an Emergency Use Authorization (EUA). The EUA for this test is supported by the Periodicals Library Assistant of Health and Human Service's declaration [...] longer be used). Performed By: #### C [facility] ####[facility] [id number] [place], [place] [address]UtFrieda Mayorga MG MAMM SCREEN 3D DUSTIN CADon 09-17-2021 MG MAMM SCREEN 3D DUSTIN CAD Patient: BARBARA BACA Exam Date: 09/17/2021 : 1970 Gender:F Ordering : DR MONIKA MATTHEWS . Admission #: [id number] Family : Order #: [id number] CLICK HERE TO VIEW EXAM RADIOLOGY REPORT PROCEDURE: MAMMOGRAM SCREENING 3D BILATERAL CAD COMPARISON: MG MAMM SCREEN 3D DUSTIN CAD, 05/08/2020. MAMMO POST BIOPSY RIGHT, 01/04/2018. INDICATIONS: Screening mammography Calculator Name NCI Breast Cancer Risk Assessment Tool 5 Year Breast Cancer Risk 1.00% Lifetime Breast Cancer Risk 9.60% Personal Breast Cancer No Personal Ovarian Cancer No Treatments None Family Cancers None LOCATION: [facility] BREAST COMPOSITION: Scattered areas [...] on 09/17/2021 at 13:13 Normal [facility] Formson 09-04-2021 Forms [id number] #1.00CD:127 Normal [facility] Patient Educationon 09-05-19 22 Patient Education [...] Take ove (more content not included)... Normal [facility] Physician Referralon 022 Physician Referral [id number]#1.00CD:127 Normal [facility] Urology Office/Clinic Noteon 09-04-2021 Urology Office/Clinic [...] had hysterectomy about 10 yrs ago. previous KILN FEEDER advised her bladder had dropped a bit. [...] E&M of New Patient Moderate 45-59 Min [id number] Follow-up With When Contact Information pt will [...] - Not Given Postpone due to refusal [facility] Comment on above: Result Comment: Elec tronically Signed By: MICHAEL NUGENT PA-C\.br\Date and Time Signed: 09/04/21 09:42 EDT Ambulatory Visit Summaryon 0 09-03-2021 Ambulatory Visit Summary BARBARA BACA :1970 Visit Date:09/03/2021 Ambulatory Visit Instructions Your Diagnosis Stress incontinence Tests Performed Urnls Dip Stick Auto w/o Microscopy POC 47025 Your Care Team Attending Physician - MICHAEL [...] Urnls Dip Stick Auto w/o Microscopy POC 27046 (09/03/2021) Bilirubin Urine Dipstick - Negative Blood Urine Dipstick - Trace-intact Glucose Urine Dipstick - Negative Ketones Urine Dipstick - Negative Leukocytes Urine Dipstick - Negative Nitrite Urine Dipstick - Negative Protein Urine Dipstick - Negative Specific Milner Urine Dipstick - 1.020 Urine Appearance Urine Dipstick - Clear Urine Color Urine Dipstick - Yellow Urobilinogen Urine Dipstick - Normal 0.2-1 EU/dl pH Urine Dipstick - 5 Medications and Immunizations Administered Not Given SARS-CoV-2 mRNA (tozinameran 5y-11y) vac, Postpone due to refusal Allergies No Known Allergies No Known Medication Allergies Normal [facility] CBC AUTO DIFFon 08-02-2021 BASO # 0.0 103/ul Normal 0.0-0.1 [facility] Comment on above: Performed By: #### C BC #### [facility] [address] [place] [address] Dr. Dioni Mayorga Basophils/100 WBC (Bld) 0.4 % Normal 0.2-2.0 [facility] Comment on above: Performed By: #### C BC #### [facility] [address] [place] [address] Dr. Dioni Mayorga EO # 0.1 103/ul Normal 0.0-0.7 [facility] Comment on above: Performed By: #### C BC #### [facility] [address] [place] [address] Dr. Dioni Mayorga Eosinophils/100 WBC (Bld) 1.0 % Normal 0.9-7.0 [facility] Comment on above: Performed By: #### C BC #### [facility] [address] [place] [address] Dr. Dioni Mayorga Erythrocyte distribution width (RBC) [Ratio] 13.4 % Normal 11.0-15.0 [facility] Comment on above: Performed By: #### C BC #### [facility] [address] [place] [address] Dr. Dioni Mayorga Hematocrit (Bld) [Volume fraction] 45.2 % Normal 36.0-48.0 [facility] Comment on above: Performed By: #### C BC #### [facility] [address] [place] [address] Dr. Dioni Mayorga Hemoglobin (Bld) [Mass/Vol] 14.5 g/dL Normal 12.0-16.0 [facility] Comment on above: Performed By: #### C BC #### [facility] [address] [place] [address] Dr. Dioni Mayorga IG # 0.02 10e3/ul Normal 0.00-0.03 [facility] Comment on above: Performed By: #### C BC #### [facility] [address] [place] [address] Dr. Dioni Mayorga IG % 0.3 % Normal 0.0-0.5 [facility] Comment on above: Performed By: #### C BC #### [facility] [address] [place] [address] Dr. Dioni Mayorga LYMPH # 2.7 103/ul Normal 1.2-3.8 [facility] Comment on above: Performed By: #### C BC #### [facility] [address] [place] [address] Dr. Dioni Mayorga Lymphocytes/100 WBC (Bld) 38.7 % Normal 20.5-60.0 [facility] Comment on above: Performed By: #### C BC #### [facility] [address] [place] [address] Dr. Dioni Mayorga MANUAL DIFF REQ NO Normal [facility] Comment on above: Performed By: #### C BC #### [facility] [address] [place] [address] Dr. Dioni Mayorga MCH (RBC) [Entitic mass] 28.4 pg Normal 26.7-34.0 [facility] Comment on above: Performed By: #### C BC #### [facility] [address] [place] [address] Dr. Dioni Mayorga MCHC (RBC) [Mass/Vol] 32.1 g/dL Normal 29.9-35.2 [facility] Comment on above: Performed By: #### C BC #### [facility] [address] [place] [address] Dr. Dioni Mayorga MCV (RBC) [Entitic vol] 88.5 fL Normal 81.0-99.0 [facility] Comment on above: Performed By: #### C BC #### [facility] [address] [place] [address] Dr. Dioni Mayorga MONO # 0.4 103/ul Normal 0.3-0.8 [facility] Comment on above: Performed By: #### C BC #### [facility] [address] [address] [address] Dioni Mayorga Monocytes/100 WBC (Bld) 6.2 % Normal 1.7-12.0 [facility] Comment on above: Performed By: #### C BC #### [facility] [address] [address] [address] Dioni Mayorga NEUT # 3.7 103/ul Normal 1.4-6.5 [facility] Comment on above: Performed By: #### C BC #### [facility] [address] [address] [address] Dioni Mayorga Neutrophils/100 WBC (Bld) 53.4 % Normal 43.0-75.0 [facility] Comment on above: Performed By: #### C BC #### [facility] [address] [place] [address] Dr. Dioni Mayorga Platelet mean volume (Bld) [Entitic vol] 10.4 fL Normal 9.5-13.5 [facility] Comment on above: Performed By: #### C BC #### [facility] [address] [address] [address] Dioni Mayorga PLT 340 103/ul Normal 150-450 [facility] Comment on above: Performed By: #### C BC #### [facility] [address] [address] [address] Dioni Mayorga RBC 5.11 106/ul Normal 4.20-5.40 [facility] Comment on above: Performed By: #### C BC #### [facility] [address] [place] [address] Dr. Dioni Mayorga WBC 6.9 103/ul Normal 4.0-11.0 [facility] Comment on above: Performed By: #### C BC #### [facility] [address] [place] [address] Dr. Dioni Mayorga FREE T3on 08-02-2021 FREE T3 1.49 pg/mlL Critically low 2.18-3.98 [facility] Comment on above: Performed By: #### F T3, LIPID, CMP, T7, TSH #### [facility] [address] [address] [address] Dioni Mayorga FREE THYROXINE INDEX T7on FTI 2.77 Normal 1.30-4.50 [facility] Comment on above: Performed By: #### F T3, LIPID, CMP, T7, TSH #### [facility] [address] [address] [address] Dioni Mayorga T3U 36.0 % Normal 30.0-39.0 [facility] Comment on above: Performed By: #### F T3, LIPID, CMP, T7, TSH #### [facility] [address] [place] [address] Dr. Dioni Mayorga T4 [Mass/Vol] 7.70 ug/dL Normal 4.80-13.90 [facility] Comment on above: Performed By: #### F T3, LIPID, CMP, T7, TSH #### [facility] [address] [address] [address] Dioni Mayorga GLYCOHEMOGLOBIN A1Con 2021 ADA RECOMMENDATION SEE BELOW Normal [facility] Comment on above: Result Comment: ADA RECOMMENDED LIMIT 4.0 - 6.0 ADA THERAPEUTIC TARGET < 7.0 ACTION SUGGESTED > 7.0 Performed By: #### A 1C #### [facility] [address] [place] [address] Dr. Dioni Mayorga Glucose [Mass/Vol] 111 mg/dL Normal [facility] Comment on above: Performed By: #### A 1C #### [facility] [address] [place] [address] Dr. Dioni Mayorga HbA1c (Bld) [Mass fraction] 5.5 % Normal 4.5-6.2 [facility] Comment on above: Performed By: #### A 1C #### [facility] [address] [place] [address] Dr. Dioni Mayorga LIPID PROFILEon 08-02-2021 CHOL-HDL RATIO NORM SEE BELOW Normal [facility] Comment on above: Result Comment: 3.3 - 4.4 LOW RISK 4.4 - 7.1 AVERAGE RISK 7.1 - 11.0 MODERATE RISK >11.0 HIGH RISK Performed By: #### F T3, LIPID, CMP, T7, TSH #### [facility] [address] [address] [address] Dioni Mayorga Cholesterol [Mass/Vol] 211 mg/dL Critically high <=200 [facility] Comment on above: Performed By: #### F T3, LIPID, CMP, T7, TSH #### [facility] [address] [address] [address] Dioni Mayorga Cholesterol in HDL [Mass/Vol] 48 mg/dL Normal 40-60 [facility] Comment on above: Performed By: #### F T3, LIPID, CMP, T7, TSH #### [facility] [address] [place] [address] Dr. Dioni Mayorga Cholesterol in LDL [Mass/Vol] 148.6 mg/dL Normal [facility] Comment on above: Performed By: #### F T3, LIPID, CMP, T7, TSH #### [facility] [address] [place] [address] Dr. Dioni Mayorga Cholesterol.total/Ch olesterol in HDL [Mass ratio] 4.4 {ratio} Normal [facility] Comment on above: Performed By: #### F T3, LIPID, CMP, T7, TSH #### [facility] [address] [place] [address] Dr. Dioni Mayorga HDL NORMAL > or = 60 mg/dl - LOW CARDIOVASCULAR RISK <40 mg/dl - HIGH CARDIOVASCULAR RISK Normal [facility] Comment on above: Performed By: #### F T3, LIPID, CMP, T7, TSH #### [facility] [address] [place] [address] Dr. Dioni Mayorga LDL CALC NORMAL SEE BELOW Normal [facility] Comment on above: Result Comment: <100 mg/dl OPTIMAL 100 - 129 mg/dl NEAR OR ABOVE OPTIMAL 130 - 159 mg/dl BORDERLINE HIGH 160 - 189 mg/dl HIGH >190 mg/dl VERY HIGH Performed By: #### F T3, LIPID, CMP, T7, TSH #### [facility] [address] [place] [address] Dr. Dioni Mayorga Triglyceride [Mass/Vol] 72 mg/dL Normal <=150 [facility] Comment on above: Performed By: #### F T3, LIPID, CMP, T7, TSH #### [facility] [address] [address] [address] Dioni Mayorga VLDL CALC 14.4 mg/dL Normal [facility] Comment on above: Performed By: #### F T3, LIPID, CMP, T7, TSH #### [facility] [address] [address] [address] Dioni Mayorga PROF 14(COMP METB)on 022 Albumin [Mass/Vol] 3.5 g/dL Normal 3.4-5.0 [facility] Comment on above: Performed By: #### F T3, LIPID, CMP, T7, TSH #### [facility] [address] [address] [address] Dioni Mayorga Albumin/Globulin [Mass ratio] 1.0 {ratio} Normal [facility] Comment on above: Performed By: #### F T3, LIPID, CMP, T7, TSH #### [facility] [address] [address] [address] Dioni Mayorga ALP [Catalytic activity/Vol] 62 U/L Normal 46-116 [facility] Comment on above: Performed By: #### F T3, LIPID, CMP, T7, TSH #### [facility] [address] [address] [address] Dioni Mayorga ALT [Catalytic activity/Vol] 20 U/L Normal 14-59 [facility] Comment on above: Performed By: #### F T3, LIPID, CMP, T7, TSH #### [facility] [address] [address] [address] Dioni Mayorga Anion gap [Moles/Vol] 14.0 mmol/L Normal [facility] Comment on above: Performed By: #### F T3, LIPID, CMP, T7, TSH #### [facility] [address] [address] [address] Dioni Mayorga AST [Catalytic activity/Vol] 12 U/L Critically low 15-37 [facility] Comment on above: Performed By: #### F T3, LIPID, CMP, T7, TSH #### [facility] [address] [address] [address] Dioni Mayorga Bilirubin [Mass/Vol] 0.4 mg/dL Normal 0.2-1.0 [facility] Comment on above: Performed By: #### F T3, LIPID, CMP, T7, TSH #### [facility] [address] [place] [address] Dr. Dioni Mayorga Calcium [Mass/Vol] 8.7 mg/dL Normal 8.5-10.1 [facility] Comment on above: Performed By: #### F T3, LIPID, CMP, T7, TSH #### [facility] [address] [place] [address] Dr. Dioni Mayorga Chloride [Moles/Vol] 105 mmol/L Normal 98-107 [facility] Comment on above: Performed By: #### F T3, LIPID, CMP, T7, TSH #### [facility] [address] [place] [address] Dr. Dioni Mayorga CO2 [Moles/Vol] 26.4 mmol/L Normal 21.0-32.0 [facility] Comment on above: Performed By: #### F T3, LIPID, CMP, T7, TSH #### [facility] [address] [place] [address] Dr. Dioni Mayorga Creatinine [Mass/Vol] 0.83 mg/dL Normal 0.55-1.02 [facility] Comment on above: Performed By: #### F T3, LIPID, CMP, T7, TSH #### [facility] [address] [place] [address] Dr. Dioni Mayorga EGFR-AF PARAGUAYAN >60 Normal >=60 [facility] Comment on above: Performed By: #### F T3, LIPID, CMP, T7, TSH #### [facility] [address] [place] [address] Dr. Dioni Mayorga EGFR-NON AF PARAGUAYAN >60 Normal >=60 [facility] Comment on above: Performed By: #### F T3, LIPID, CMP, T7, TSH #### [facility] [address] [address] [address] Dioni Mayorga Globulin (S) [Mass/Vol] 3.5 g/dL Normal [facility] Comment on above: Performed By: #### F T3, LIPID, CMP, T7, TSH #### [facility] [address] [address] [address] Dioni Mayorga Glucose [Mass/Vol] 78 mg/dL Normal 74-106 [facility] Comment on above: Performed By: #### F T3, LIPID, CMP, T7, TSH #### [facility] [address] [place] [address] Dr. Dioni Mayorga Potassium [Moles/Vol] 4.4 mmol/L Normal 3.5-5.1 [facility] Comment on above: Performed By: #### F T3, LIPID, CMP, T7, TSH #### [facility] [address] [place] [address] Dr. Dioni Mayorga Protein [Mass/Vol] 7.0 g/dL Normal 6.4-8.2 [facility] Comment on above: Performed By: #### F T3, LIPID, CMP, T7, TSH #### [facility] [address] [place] [address] Dr. Dioni Mayorga Sodium [Moles/Vol] 141 mmol/L Normal 136-145 [facility] Comment on above: Performed By: #### F T3, LIPID, CMP, T7, TSH #### [facility] [address] [place] [address] Dr. Dioni Mayorga Urea nitrogen [Mass/Vol] 16.0 mg/dL Normal 7.0-18.0 [facility] Comment on above: Performed By: #### F T3, LIPID, CMP, T7, TSH #### [facility] [address] [place] [address] Dr. Dioni Mayorga Urea nitrogen/Creatinine [Mass ratio] 19.3 mg/mg Normal [facility] Comment on above: Performed By: #### F T3, LIPID, CMP, T7, TSH #### [facility] [address] [place] [address] Dr. Dioni Mayorga TSHon 08-02-2021 TSH 1.339 uIU/mL Normal 0.358-3.740 [facility] Comment on above: Performed By: #### F T3, LIPID, CMP, T7, TSH #### [facility] [address] [address] [address] Dioni Mayorga Vital Signs Date Time Vital Sign Value Performing Clinician Faci lity 09-03-2021 08:51-0400 Blood Pressure Location MICHAEL RAFFI [facility] 09-03-2021 08:51-0400 Diastolic blood pressure 96 mm[Hg] MICHAEL NUGENT [facility] 09-03-2021 08:51-0400 Heart rate 106 /min MICHAEL SERNARY [facility] 09-03-2021 08:51-0400 Systolic blood pressure 138 mm[Hg] MICHAEL NUGENT [facility] Encounters Encounter Date Encounter Type Care Provider Facility Start: 07-31-2024 End: 07-31-2024 ambulatory Harish Cannon MD Facility:[facility] Start: 06-19-2024 End: 06-19-2024 ambulatory [facility] Start: 09-13-2023 End: 09-13-2023 ambulatory Harish Cannon MD Facility:[facility] Start: 03-02-2022 End: 03-02-2022 ambulatory SALVADOR GROSS Facility:[facility] Start: 12-15-2021 End: 12-15-2021 ambulatory SALVADOR GROSS Facility:[facility] Start: 12-09-2021 End: 12-09-2021 ambulatory SALVADOR GROSS Facility:[facility] Start: 09-17-2021 End: 09-18-[address] MONIKA MATTHEWS Facility:[facility] Start: 09-03-[address] MONIKA MATTHEWS Facility :[facility] Start: 09-03-2021 End: 09-03-2021 Patient encounter procedure MICHAEL NUGENT [facility] Start: 08-05-2021 Encounter for genera l adult medical examination without abnormal findings DR MONIKA MATTHEWS [facility] Start: 08-02-2021 End: 08-03-[address] MONIKA MATTHEWS Facility:[facility] Start: 08-02-2021 End: 08-03-2021 Encounter for general adult medical examination without abnormal findings DR MONIKA MATTHEWS Facility:[facility] Procedures Date Procedure Procedure Detail Performing Clinician Hysterectomy MICHAEL NUGENT Immunizations Immunization Date Immunization Notes Care Provider Fa cility NEGATED: Highlighted row has not occurred!09-03-2021 SARS-CoV-2 mRNA (tozinameran 5y-11y) vaccine MICHAEL NUGENT [facility] Payers Date Payer Category Payer Unknown [id number] 2022 Unknown 2019 Unknown [id number] 1970 Unknown [id number] 2.16.84 [id number] 1970 Unknown [id number] 2.16.84 [id number] 1970 Unknown [id number] .16.84 [id number] 1970 Unknown [id number] 2.16.84 [id number] 1970 Unknown [id number] .16.84 [id number] 1970 Unknown [id number] 2.16.84 [id number] 1970 Unknown [id number] 2.16. [id number] 1970 Unknown [id number] 2.16. [id number] 1970 Unknown [id number] 2.16. [id number] Social History Date Type Detail Facility Start: 09-03-2021 Tobacco smoking status Never s moked tobacco (finding) [facility] Tobacco smoking status Never [facility] AIS Sex Assigned At Female [facility] Functional Status Date Assessment Result Facility 09-03-2021 Functional Status N/A [facility] Hospital Discharge instructions 09-03-2021 Note Date & [...] stimulation). For women, using a medical research assistant to prevent urine leaks. This is [...] right after experiencing incontinence. General instructions Take [id number] and prescription medicines only as told by [...] 03/11/2005 Document Revised: 02/11/2018 Document Reviewed: 05/13/2017 [employer] Patient Education [employer]. Follow Up Care 08/06/2021 08:10:07 With:pt will call once she decides how she would like to proceed Address:Unknown When: Unknown [facility] Evaluation + Plan note Note Date & Type Note Facility Evaluation + Plan note Future Appointments Appointment Date:09/17/2021 08:30:00 AM Scheduled Provider: Location:[facility] Appointment Type:URO Nurse Visit [facility] Hospital course Narrative Note Date & Type Note Facility Hospital course Narrative No data available for this section [facility] Progress note Note Date & Type Note Facility Progress note No data available for this section [facility] Summary Purpose Family History No Family History Records FoundNo Family History Records FoundNo Family History Records Found Advance Directives No Advanced Directives Records FoundNo Advanced Directives Records FoundNo Advanced Directives Records Found Additional Source Comments Care Team (unrecognized sect ion and content) Personnel Name: Monika Matthews MD Address: [address] [place] [address] INFORMATION SOURCE (unrecogn ized section and content) DATE CREATED AUTHOR 09/18/2021 [facility] DATE CREATED AUTHOR AUTHOR'S ORGANIZ ATION 03/02/2022 [facility] DATE CREATED AUTHOR AUTHOR'S ORGANIZ ATION 08/09/2024 [facility] FOR RECORDS PERTAINING TO PATIENTS WHO [...] PRIMARY CLINICAL RECORDS. [facility]. provides no warranty or guarantee of the accuracy or completeness of information in this document.
== END 2024-10-23 07:26 | disposition home or self-care (01) ==
LOC: MAMMO 07:25
PROVIDERS: PCP Family Medicine; Visit Provider Family Medicine
DX: Z12.31 Encounter for screening mammogram for malignant neoplasm of breast (principal)
CPT/HCPCS: 77063; 77067

== ENCOUNTER 2025-02-12 12:41 | Outpatient (OUT) | payer BC, SELFPAY ==
--- OUTSIDE RECORDS SUMMARY | 2024-01-28 06:30 | XMS_ITS ---
Author Organization [facility] in [place] Address [address] [place] [address] Care Team Providers Care Diamond Setter Apprentice Name Role Phone Santo Dykes Primary Care Provider REASON FOR VISIT diet check Encounters Encounter Location Date Provider Diagnosis [facility] [address] [place] [id number] 01/28/2024 Santo Dykes Plan Of Treatment Next Appt Details Provider Name:Santo Dykes, 05:15:00 PM, [address] [place], [address], Progress Notes * Barbara BACA LDOB:[birth year] (54 yo F)Acc No.[id number]:01/28/2024 UNLOCKED PROGRESS NOTE Progress Note Patient: Christophe PETERSON Barbara Manning :?Romero Sadia Dykes ([facility]), MDDOB:1970???Age: 53 Y???Sex:FemaleDate:4Phone:[phone]:VIDAL BOWMAN, [id number] Subjective: * Chief Complaints: * 1 . Diet check. * Medical History: Objective: * Vitals: Assessment: Plan: * Treatment: * * Electronic signature of Santo Dykes MD, [id number] on 02/12/2025 at 12:43 PM EST Sign off status: PendingVisit Status:?CANC (Cancelled) * Provider: Ame Dykes ([facility])MD Date: 1 03/30/2023 Generated for Printing/Faxing/eTransmitting on:?02/12/2025 12:43 PM EST
--- OUTSIDE RECORDS SUMMARY | 2025-02-05 11:00 | XMS_ITS ---
Author Organization [facility] in [place] Address [address] [place] [address] Care Team Providers Care Beverage Specialist Name Role Phone JaniaSanto Primary Care Provider [phone] REASON FOR VISIT weight check Vital Signs Weight 212.4 lbs 02/05/2025 Height 62 in 02/05/2025 BMI 38.84 kg/m2 02/05/2025 Encounters Encounter Location Date Provider Diagnosis [facility] [address] [place] [address] 02/05/2025 Santo Dykes Plan Of Treatment Next Appt Details Provider Name:Santo Dykes, 05:15:00 PM, [address] [place], [address], Progress Notes * Barbara BACA LDOB:[birth year] (54 yo F)Acc No.[id number]:02/05/2025 Nurse Visit Patient: Christophe PETERSON Barbara Manning :?Romero Dykes ([facility]), MDDOB:1970???Age: 54 Y???Sex:FemaleDate:02/05/2025Phone:[phone]:[address] [id number] In:03:58 PM EST Subjective: * Chief Complaints: * 1 . Weight check. * Active Problem List M54.16 Lumbar radiculopathy Modified On:05/28/2023 Status:mwrziewxyP32.37Other intervertebral disc degeneration, lumbosacral region Modified On:09/21/2022 Status:xlhhljyrzL67.90Acute sinusitis Modified On:04/23/2023 Status:fzxbdxltzE31.90Cellulitis Modified On:07/02/2023 Status:ogeyhviqzT65.00Well adult Modified On:08/02/2023 Status:molnziapxT19.1Iron deficiency Modified On:09/27/2024 Status:hihvkegatR16.41BMI 40.0-44.9, adult Modified On:11/15/2024 Status:zqsyrodzrO09.51Vertebrogenic low back pain Modified On:12/28/2024 Status:confirmed * Medical History: Objective: * Vitals: W t:212.4lbs, Ht: 62 in, BMI:38.84Index, Wt-k.34 kg. Assessment: Plan: * Treatment: * * Sign off status: CompletedVisit Status:?ARR (Check-In) true * Provider: Ame Dykes (TTC)MD Date: 04/08/2024 Generated for Printing/Faxing/eTransmitting on:?02/12/2025 12:43 PM EST
--- OUTSIDE RECORDS SUMMARY | 2025-02-12 12:43 | XMS_ITS | Clinical Summary ---
Author Organization [facility] Address [address] [place] [address] Care Team Providers Care Dye Range Operator Cloth Name Role Phone Unavailable Primary Care Provider Unavailabl e Social History Tobacco UseTypesPacks/DayYears UsedDateSmoking Tobacco: Never Assessed CommentsUnknownSex and Gender InformationValueDate RecordedSex Assigned at Not on fileLegal CxoEzucwk38/15/2023 9:30 PM EDTGender IdentityNot on fileSexual OrientationNot on file Last Filed Vital Signs Vital SignReadingTime TakenCommentsBlood Ajppkklp391/8610 12:00 PM EDT Pulse--Temperature--Respiratory Rate--Oxygen Saturation--Inhaled Oxygen Concentration--Pzekwh92.4 kg (217 lb)12/13/2018 12:00 PM ICLBumfyc383.6 cm (5' 4 )12/13/2018 12:00 PM EDTBody Mass Index37.251 12:00 PM EDT Plan of Treatment Not on file
--- OUTSIDE RECORDS SUMMARY | 2025-02-12 12:44 | XMS_ITS | Patient Health Record ---
Author Organization [facility] in [place] Address [address] [place] [address] Care Team Providers Care Business Rules Analyst Name Role Phone Santo Matthews Primary Care Provider [phone] Allergies No Known Allergies Results Component Value Reference Range Notes CBC AUTO DIFF Reviewed date:09/26/2024 04:08:12 PM Interpretation: Performing Lab: Notes/Report: [facility] , White Blood Count 7.5 4.0-11.0 10 3/uL Red Blood Count5.134.20-5.40 10 6/tCQuezngnxqu69.112.0-16.0 g/eIUsyrkemrgx61.2 36.0-48.0 %Mean Corpuscular Pdtzmt32.181.0-99.0 fLMean Corpuscular Hemoglobin 29.426.7-34.0 pgMean Corpuscular HGB Conc33.429.9-35.2 g/dLRed Cell Distribution Width13.211.0-15.0 %Platelet Hotdq881196-893 10 3/uLMean Platelet Zyvjyn97.59.5- 13.5 fLNeutrophils Percent Auto54.443.0-75.0 %Lymphocytes Percent Auto35.920.5- 60.0 %Monocytes Percent Auto8.81.7-12.0 %Eosinophils Percent Auto0.40.9-7.0 % Basophils Percent Auto0.40.2-2.0 %Immature Granulocytes Pct Auto0.10.0-0.5 % Neutrophils Absolute Auto4.11.4-6.5 10 3/uLLymphocytes Absolute Auto2.71.2-3.8 10 3/uLMonocytes Absolute Auto0.70.3-0.8 10 3/uLEosinophils Absolute Auto0.00.0- 0.7 10 3/uLBasophils Absolute Auto0.00.0-0.1 10 3/uLImmature Granulocytes Abs Auto0.010.00-0.03 10 3/uLPerforming Lab:see note - [facility] FREE T3 Reviewed date:09/26/2024 04:08:12 PM Interpretation: Performing Lab: Notes/Report: [facility] ,Free T32.732.18-3.98 pg/mLPerforming Lab:see [facility] GLYCOHEMOGLOBIN A1C Reviewed date:09/26/2024 04:08:12 PM Interpretation: Performing Lab: Notes/Report: [facility] ,Glycohemoglobin A1C5.14.5-6.2 % ADA RECOMMENDED LIMIT 4.0 - 6.0 ADA THERAPEUTIC TARGET < 7.0 ACTION SUGGESTED > 7.0 Estimated Average Ylupetl501Sghdaugzyf Lab:see [facility] INSULIN Reviewed date:09/27/2024 06:20:42 PM Interpretation: Performing Lab: Notes/Report: [facility] ,Insulin7.22.6-24.9 uIU/mL Performed at: [address] [id number] Relay Record Clerk: Rommel Zavala PhD, Phone: [phone] Performing Lab:see [facility] CenterLIP[facility] PROFILE Reviewed date:09/26/2024 04:08:12 PM Interpretation: Performing Lab: Notes/Report: [facility] ,Sjjlkfnvunwgm90<=150 mg/vPFnphygsgmvw857<=200 mg/dLHDL Azkhlmypive0328-36 mg/dL > or =60 mg/dl - LOW CARDIOVASCULAR RISK <40 mg/dl - HIGH CARDIOVASCULAR RISK LDL Cholesterol Xcvepifwbk876.0 <100 mg/dl OPTIMAL 100-129 mg/dl NEAR OR ABOVE OPTIMAL 130-159 mg/dl BORDERLINE HIGH 160-189 mg/dl HIGH >190 mg/dl VERY HIGH VLDL HFJOARRADSR24.0Chol HDL Ratio3.5 3.3 - 4.4 LOW RISK 4.4 - 7.1 AVERAGE RISK 7.1 - 11.0 MODERATE RISK >11.0 HIGH RISK Performing Lab:see note - [facility] LBPROF 14(COMP METB) Reviewed date:09/26/2024 04:08:12 PM Interpretation: Performing Lab: Notes/Report: [facility] ,Cfpnif976486-751 mmol/LPotassium4.63.5-5.1 mmol/ZVxjsobqz87652-867 mmol/LCarbon Ppqyuff21.921.0-32.0 mmol/LAnion Gap14.1Zdmcavt6160-521 mg/dLBlood Urea Nitrogen 17.07.0-18.0 mg/dLCreatinine0.680.55-1.02 mg/dLEstimated GFR ( Kim>60 >=60 mL/min/1.73m 2Estimated GFR (Non- [place]>60>=60 mL/min/1.73m 2BUN Creatinine Ratio25.5Zgtsavy6.38.5-10.1 mg/dLBilirubin Total0.30.2-1.0 mg/dL Aspartate Amino Zbdquecfakj0120-38 U/LAlanine Ntwuwchwhozxwcpz7110-51 U/L Alkaline Rktmzaaybea1779-327 U/LTotal Protein7.56.4-8.2 g/dLAlbumin Level3.83.4- 5.0 g/dLGlobulin3.7Albumin Globulin Ratio1.0Performing Lab:see note - [facility] LBT4 Reviewed date:09/26/2024 04:08:12 PM Interpretation: Performing Lab: Notes/Report: [facility] ,T4 Thyroxine8.604.80-13.90 ug/dLPerforming Lab:see note - [facility] LBTSH Reviewed date:09/26/2024 04:08:12 PM Interpretation: Performing Lab: Notes/Report: [facility] ,Thyroid Stimulating Hormone2.3530.358-3.740 uIU/mLPerforming Lab:see [facility] LBMR lumbar spine wo con Reviewed date:11/01/2024 12:24:14 PM Interpretation: Performing Lab: Notes/Report: Source Facility: [facility] [place] [address] [place] [address] Magnetic Resonance Report Signed with Addenda Patient: BARBARA BACA MR#: [id number] : 1970 Acct:[id number] Age/Sex: 54 / F ADM Date: 10/04/24 Loc: MRI Attending Dr: Papa Smalls NP Ordering Physician: Papa Smalls NP Date of Service: 10/04/24 Procedure(s): MR lumbar spine wo con Accession Number(s): [id number] cc: Papa Smalls NP; Monika Matthews M.D. ADDENDUM [place] [address] This is an addendum Stable appearance of the type II degenerative T1/T2 hyperintense endplate marrow at L5-S1 when compared to 2023 Impression dictated by: Tariq Samano M.D. 10/24/2024 2:36 PM Dictation Location: [place] [address] Electronically authenticated by: [id number] Y Date: 10/24/2024 14:36 Patient Name: BARBARA BACA MRN: [id number] date: 1970 Sex: F Assigned Patient Location: MRI Current Patient Location: [facility] Accession/Order Number: [id number] Exam Date: 10/24/2024 14:32 Report Date: 10/24/2024 14:36 At the request of: PAPA SMALLS NP Procedure: MR lumbar spine wo con [place] [address] Patient Name: BARBARA BACA MRN: [id number] date: 1970 Sex: F Assigned Patient Location: MRI Current Patient Location: MRI Accession/Order Number: [id number] Exam Date: 10/04/2024 10:57 Report Date: 10/04/2024 11:10 At the request of: PAPA SMALLS NP Procedure: MR lumbar spine wo con MRI lumbar spine performed without contrast INDICATION: Chronic lumbar pain radiating to left hip COMPARISON: MRI 05/02/2023 FINDINGS: The lumbar vertebral heights, alignment unremarkable. Endplate marrow changes changes involving L5-S1. No evidence of acute edema to suggest acute compression fracture. Multilevel posterior degeneration greatest L4-S1. Conus medullaris terminates normally at L1-2. Minimal disc desiccation L2-L5. Moderate severe diffuse disc space narrowing L5-S1. T12-L1: Minimal central protrusion exerting caudally. No significant indentation canal or neural from narrowing L1-L4: No significant disc disease, disc protrusion, central canal or neural from narrowing identified. L4-5: Disc desiccation. No focal protrusion. Moderate severe facet arthropathy with facet joint effusions, greatest right. Right-sided synovial cyst dorsally. L5-S1: Left foraminal zone disc osteophyte complex. Moderate right moderate severe left facet arthropathy mild to moderate left neural foraminal narrowing. Right foramen and canal patent. Addendum Dictated By: Tariq Samano M.D. Addendum Signed By: 11/01/24 1 045 Addendum Cosigned By: DD/ /10/1435 TD/TT: / ADDENDUM MR/MR lumbar spine wo con IMPRESSION: Multilevel posterior elements degenerative changes greatest L4-S1. Degenerative changes greatest L5-S1 with caid-wf-hgmqsjff predominantly left-sided neural foraminal narrowing. Impression dictated by: Tariq Samano M.D. 10/04/2024 11:10 AM Dictation Location: [place] [address] Electronically authenticated by: [id number] Y Date: 10/04/2024 11:10 Addendum Dictated By: Tariq Samano M.D. Addendum Signed By: 11/01/24 1 045 Addendum Cosigned By: DD/ /10/1435 TD/TT: / [place] [id number] Patient Name: BARBARA BACA MRN: [id number] date: 1970 Sex: F Assigned Patient Location: MRI Current Patient Location: MRI Accession/Order Number: [id number] Exam Date: 10/04/2024 10:57 Report Date: 10/04/2024 11:10 At the request of: PAPA SMALLS NP Procedure: MR lumbar spine wo con MRI lumbar spine performed without contrast INDICATION: Chronic lumbar pain radiating to left hip COMPARISON: MRI 05/02/2023 FINDINGS: The lumbar vertebral heights, alignment unremarkable. Endplate marrow changes changes involving L5-S1. No evidence of acute edema to suggest acute compression fracture. Multilevel posterior degeneration greatest L4-S1. Conus medullaris terminates normally at L1-2. Minimal disc desiccation L2-L5. Moderate severe diffuse disc space narrowing L5-S1. T12-L1: Minimal central protrusion exerting caudally. No significant indentation canal or neural from narrowing L1-L4: No significant disc disease, disc protrusion, central canal or neural from narrowing identified. L4-5: Disc desiccation. No focal protrusion. Moderate severe facet arthropathy with facet joint effusions, greatest right. Right-sided synovial cyst dorsally. L5-S1: Left foraminal zone disc osteophyte complex. Moderate right moderate severe left facet arthropathy mild to moderate left neural foraminal narrowing. Right foramen and canal patent. MR/MR lumbar spine wo con IMPRESSION: Multilevel posterior elements degenerative changes greatest L4-S1. Degenerative changes greatest L5-S1 with gycj-vn-qjvcvokb predominantly left-sided neural foraminal narrowing. Impression dictated by: Tariq Samano M.D. 10/04/2024 11:10 AM Dictation Location: [place] [address] Electronically authenticated by: [id number] Y Date: 10/04/2024 11:10 Dictated By: Tariq Samano M.D. Signed By: 10/04/24 1113 DD/ 1110 TD/TT: Clockmaker:SULEMAN tomosynthesis screening BI Reviewed date:10/23/2024 02:06:34 PM Interpretation: Performing Lab: Notes/Report: Source Facility: [facility]-[address] [place] [address] [place] [address] Mammography Report Signed Patient: BARBARA BACA MR#: [id number] : 1970 Acct:[id number] Age/Sex: 54 / F ADM Date: 10/23/24 Loc: MAMMO Attending Dr: Monika Matthews M.D. Ordering Physician: Monika Matthews M.D. Results: Date of Service: 10/23/24 Follow Up: Procedure(s): MM tomosynthesis screening BI Accession Number(s): [id number] cc: Monika Matthews M.D. Patient Name: BARBARA BACA MR#: [id number] : 1970 Exam Date: 10/23/2024 Ordering Doctor: DR MONIKA MATTHEWS . RADIOLOGY REPORT PROCEDURE: MM TOMOSYNTHESIS SCREENING BI COMPARISON: MM TOMOSYNTHESIS SCREENING BI, 10/22/2023. MM TOMOSYNTHESIS SCREENING BI, 10/20/2022. MG MAMM SCREEN 3D DUSTIN CAD, 09/17/2021. MG MAMM DUSTIN SCRN W CAD DIG, 06/21/2013. INDICATIONS: Screening Calculator Name NCI Breast Cancer Risk Assessment Tool 5 Year Breast Cancer Risk 1.10% Lifetime Breast Cancer Risk 9.10% Personal Breast Cancer No Personal Ovarian Cancer No Treatments None Family Cancers None LOCATION: [facility] BREAST COMPOSITION: There are scattered areas of fibroglandular density. FINDINGS: RIGHT BREAST: No significant suspicious finding. LEFT BREAST: No significant suspicious finding. DIAGNOSTIC CATEGORY 1--NEGATIVE. RECOMMENDATIONS: ROUTINE MAMMOGRAM AND CLINICAL EVALUATION IN 12 MONTHS. Dictated by: Mumtaz Welch DO on 10/23/2024 at 12:09 Approved by: Mumtaz Welch DO on 10/23/2024 at 12:10 Dictated By: Mumtaz Welch D.O. Signed By: 10/23/24 1211 DD/ 1210 TD/TT: Clockmaker:SEAN Reviewed date:09/26/2024 04:08:12 PM Interpretation: Performing Lab: Notes/Report: [facility] ,Sean44.050.0-170.0 ug/dLPerforming Lab:see noteML - [facility] LB Reason For Referral No Information Medications Medication SIG (Take, Route, Frequency, Duration) Notes Start Date End Date Status Baclofen 10 MG 1 tablet as needed Orally at HS PRN ActiveAdipex-P 37.5 MG1 tablet before breakfast Orally Once a day02/05/2025 ActiveGabapentin 300 MG1 capsule Orally BIDActiveClaritin-D 12 Hour 5-120 MG1 tablet Orally every 12 hrs; Duration: 30 days5ActiveMeloxicam 7.5 MG1 tablet Orally twice daily PRN5ActivevalACYclovir HCl 1 GM1 tablet Orally tid; Duration: 10 days5ActiveSemaglutide 2.268 mg/0.63 mL 2.268 mg/0.63 mL0.63 mL Subcutaneous Once weekly; Duration: 30 days4Active Ondansetron 4 MG1 tablet on the tongue and allow to dissolve Orally qid 5Active Social History Tobacco Use: Social History Observation Description Date Details (start date - stop date) Never Smoker NA - NA Tobacco Use/Smoking Question Answer Notes Patient is a nonsmoker Alcohol Screen (Audit-C) Question Answer Notes Did you have a drink containing alcohol in the p ast year? Yes How often did you have 6 or more drinks on one occasion in the past year?Never (0 point)How many drinks did you have on a typical day when you were drinking in the past year?3 or 4 drinks (1 point)How often did you have a drink containing alcohol in the past year?Monthly (2 points)Yxesqt5YyjcpdxkwgixguFpczmfwcENBLK-O (Standard) Question Answer Notes Did you have a drink containing alcohol in the p ast year? No Rulvnl5YcfzuocuvcvauoWthbxzjz Problems Problem Type SNOMED Code ICD Code Onset Dates Problem Status W/U Status Risk Notes Problem Iron deficiency (84709778) Iron deficienc y (E61.1) ActiveconfirmedProblemDegeneration of lumbosacral intervertebral disc (83690964) Other intervertebral disc degeneration, lumbosacral region (M51.37)Active confirmedProblemLumbar radiculopathy (860843130)Lumbar radiculopathy (M54.16) ActiveconfirmedProblemAcute sinusitis (32341330)Acute sinusitis (J01.90)Active confirmedProblemWell adult (345052761)Well adult (Z00.00)ActiveconfirmedProblem Cellulitis (950059400)Cellulitis (L03.90)ActiveconfirmedProblemBody mass index 40+ - morbidly obese (700040062)BMI 40.0-44.9, adult (Z68.41)Activeconfirmed ProblemVertebrogenic low back pain (869275089785528987)Vertebrogenic low back pain (M54.51)Activeconfirmed Vital Signs Blood pressure diastolic 80 mm Hg 01/08/2025 Kkstxi99 in02/05/2025lood pressure xoyizxyk150 mm Hg01/08/20252184Niueep718.4 lbs 02/05/2025BMI38.84 kg/m202/05/2025 Encounters Encounter Location Date Provider Diagnosis [facility] [address] [place] [place] [address] 01/08/2025 Santo Hoy Lumbar radiculopathy M54.16 [facility] [address] [place] [address] 07/13/2024 Santo Hoy Well adult Z00.00 [facility] [address] [place] [place] [address] 08/14/2024 Santo Hoy Lumbar radiculopathy M54.16 [facility] [address] [place] [address] 11/15/2024 Santo Hoy BMI 40.0-44.9, adult Z68.41 [facility] [address] [place] [address] 02/05/2025 Santo Hoy [facility] [place] [place] [address] 09/11/2024Doug HoyLumbar radiculopathy M54.16 and Well adult Z00.00[facility] [place] [address]/ Satno HoyLumbar radiculopathy M54.16[facility] [place] [address]/Doug [facility] [address] [place] [address]/Doug [facility] [facility] [address]/Doug [facility] [place] [place] [address] 07/13/2024[facility] [place] [place] [address]/02/2024[facility] [place] [address]/01/2025[facility] [place] [address]/[facility] [place] [address]/09/2024[facility] [place] [address]/02/2024 Santo HoyLumbar radiculopathy M54.16[facility] [place] [place] [address]/Do HoyLumbar radiculopathy M54.16 Assessments Encounter Date Diagnosis (ICD Code) Assessment Notes Treatment Notes Treatment Clinical Notes Section Notes 07/13/2024 Well adult (ICD-10 - Z00.00) 08/14/2024Lumbar radiculopathy (ICD-10 - M54.16)09/11/2024Lumbar radiculopathy (ICD-10 - M54.16)09/11/2024Well adult (ICD-10 - Z00.00)10/09/2024Lumbar radiculopathy (ICD-10 - M54.16)01/08/2025Lumbar radiculopathy (ICD-10 - M54.16) maybe some better with weight loss5BMI 40.0-44.9, adult (ICD-10 - Z68.41)11/15/2024Lumbar radiculopathy (ICD-10 - M54.16)02/05/2025Lumbar radiculopathy (ICD-10 - M54.16) Plan Of Treatment Pending Test Test Name Order Date CMP (COMPLETE METABOLIC PANEL) 4 HEMOGLOBIN A1C (GLYCO) 09/11/2024 HEMOGLOBIN A1C (GLYCO) 08/02/2023 IRON, TOTAL 09/11/2024 LIPID PANEL (CHOL/TRIG/HDL/LDL) 09/12/19 25 LIPID PANEL (CHOL/TRIG/HDL/LDL) 08/02/19 24 CBC WITH DIFF (EXP 12/2024) 08/02/2023 Insulin Level 09/11/2024 STOOL OCCULT BLOOD 09/11/2024 CBC AUTO DIFF 09/02/2022 GLYCOHEMOGLOBIN A1C 09/02/2022 LIPID PROFILE 09/02/2022 TSH 09/02/2022 MG MAMM SCREEN 3D DUSTIN CAD 10/14/2022 MRI LSPINE WO CON 09/02/2022 XR LSPINE 2_3 VIEWS 09/02/2022 THYROID PANEL (T4/TSH/FREE T3) 5 CMP (COMP MET TINEO) w/eGFR CKD-EPI 2024 CBC WITH DIFF 09/11/2024 Next Appt Details Provider Name:Santo Sprague Luisisaiah, 05:15:00 PM, [address] [place], [address], Insurance Providers Payer Name Payer Address Payer Phone Subscriber Number Group Number Insured Name Patient Relationship to Insured Coverage Start Date Coverage End Date [employer] PPO PLUS LOCAL PLAN [address] [place] [address] [id number] Blayne Baca - patient is the insured Medications Administered Medication Instructions Date of Administration Dosage Notes Kenalog-40 20 ij304Hrxxflhvc Hqbyzdhlhkml72/08/202460 mg60 Medical (General) History Medical History History ICD Code Ankle edema R60.0 Fatigue R53.83 COVID-19 079.89 COVID U07.1 Surgical History Surgery Date(Month/Year) 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
--- OUTSIDE RECORDS SUMMARY | 2025-02-12 12:47 | XMS_ITS | CCD ---
Author Organization [facility] CliniSyme Care Team Providers Care Classroom Teacher Name Role Phone Monika Dykes Primary Care Physician DR MONIKA DYKES Admitting Unavailable CASSIE, DR FRANK Attending Unavailable [...] Care Unavailable GINNY, SALVADOR Consulting Unavailable GINNY, SALVDAOR Admitting Unavailable GINNY, SALVADOR Attending Unavailable CASSIE, DR FRANK Primary Care Unavailable GINNY, SALVADOR Consulting Unavailable CASSIE, DR FRANK Admitting Unavailable CASSIE, DR FRANK Attending Unavailable CASSIE, DR FRANK Primary Care Unavailable CASSIE, DR FRANK Consulting Unavailable Davis GARNICA, Harish Olivier Attending Unavailable Davis GARNICA, Harish Olivier Attending Unavailable Davis GARNICA, Harish Olivier Attending Unavailable Medications Current Medications MedicationDrug Class(es)DatesSig (Normalized)Sig (Original)diclofenac sodium 75 mg delayed release oral tablet (1 source)Nonsteroidal Anti-inflammatory DrugStart: 61-67-1892kopj 1 mg by mouth twice dailydiclofenac sodium 75 mg Oral EC Tab mg tab(s), Oral, BID, Refills(s) 0 Start Date: 09/03/21 Status: Ibrheil45 hr loratadine 10 mg / pseudoephedrine sulfate 240 mg extended release oral tablet (1 source)alpha-Adrenergic AgonistStart: 28-92-4387rgay 1 tablet by mouth once dailyloratadine-pseudoephedrine 10 mg-240 mg ER Tab tab(s), Oral, Daily, Refill(s) 0 Start Date: 09/03/21Status: Orderedphentermine hydrochloride 37.5 mg oral tablet (1 source)Sympathomimetic Amine AnorecticStart: 78-53-3546hsvm 1 tablet by mouth once dailyphentermine 37.5 mg Tab 37.5 mg = 1 tab(s), Oral, Daily, Refills(s) 0 Start Date: 09/03/21 Status: Ordered Problems Active Problems Problem ClassificationProblemDateDocumented DateEpisodic/ChronicGenitourinary symptoms and ill-defined conditions (1 source)Stress incontinence (female) (male); Translations: [Stress incontinence (female) (male)]Onset: 84-27-9593IkkkuovMuqptxpxwdcl (3 sources)CONTACT W/AND (SUSP) EXPOS COVID-19; Translations: [CONTACT W/AND (SUSP) EXPOS COVID-19]Onset: 43-06-0606Mebfj infection (1 source)COVID-19; Translations: [COVID-19]Onset: 12-11-2021 Past or Other Problems Problem ClassificationProblemDateDocumented DateEpisodic/ChronicOther screening for suspected conditions (not mental disorders or infectious disease) (4 sources)Encounter for screening mammogram for malignant neoplasm of breast; Translations: [ENC SCR MAMMO MALIG NEOPLASM BREAST]Onset: 59-67-6671Vzbhmdyj Other skin disorders (1 source)Nonscarring hair loss, unspecified; Translations: [NONSCARRING HAIR LOSS UNSPECIFIED]Onset: 93-51-4951UipwuzcxAhskplhdqvmv (1 source)CONTACT W/AND (SUSP) EXPOS COVID-19; Translations: [CONTACT W/AND (SUSP) EXPOS COVID-19]Onset: 12-15-2021 Results Test NameValueInterpretationReference RangeFacilityCovid-19 PCR ([facility])on 32-68-6471UUZH-CoV-2 (COVID-19) RNA YAMILET+probe Ql (Unsp spec)Not detectedNormal NOT DETECTEDThe [facility] HospitalComment on above:Result Comment: When diagnostic testing is negative, the possibility of a false negative should be c onsidered in the context of a patient's recent [...] for this test is supported by the [place] of Health and Human Service's declaration that circumstances exist to justify the emergency use of in vitro diagnostics for the detection and/or diagnosis of the virus that causes COVID-19. This EUA will remain in effect for the duration of the COVID-19 declaration justifying emergency of IVDs, unless it is terminated or revoked by the FDA (after which the test may no longer be used).Performed By: #### CVDTBH ####[facility] [address] [address]Dr. Dioni KanNSHARMAINE A AND B AGon 64-01-4447MSWHPSGMUQAYE BELOWSumma HealthComuniversity of michigan health on above:Result Comment: Negative for Flu A protein angiten. Infection due to Flu A cannot be ruled out. FluA angiten in the sample may be below the detection limit of the test.Performed By: #### INFLUAB #### [facility] [address] [place] [address] Dr. Dioni CharlesUBNEGHSMISTI [facility] on above: Result Comment: Negative for Flu B protein antigen. Infection due to Flu B cannot be ruled out. FluB antigen in the sample may be below the detection limit of the test.Performed By: #### INFLUAB #### [facility] [address] [address] [address] Dioni Corbin AGNegativeNormalNEGATIVE SEE COMMENTThe [facility] on above:Performed By: #### INFLUAB #### [facility] [address] [place] [address] Dr. Dioni Saeed AGNegativeNormalNEGATIVE SEE COMMENTThe [facility] on above:Performed By: #### INFLUAB #### [facility] [address] [place] [address] Dr. Dioni GraciaMATIC COVID-19 ANTIGENon 42-03-9796INB StatementSEE BELOW NormalThe [facility] on above:Result Comment: This test has not been FDA [...] declaration is terminated or authorization is revoked sooner.Performed By: #### CVDAGA #### [facility] [address] [place] [address] Dr. Dioni Bolanos-CoV-2 (COVID-19) RNA YAMILET+probe Ql (Unsp spec)NegativeNormal NEGATIVEThe [facility] on above:Result Comment: Negative results are presumptive. They do not preclude infection and should not be used as the sole basis for treatment decisions. Additional confirmatory testing by a molecular method should be considered.Performed By: #### CVDAGA #### [facility] [address] [place] [address] Dr. Dioni MayorgaCovid-19 PCR (CVDTB)on 65-28-1361IQRG-CoV-2 (COVID-19) RNA YAMILET+probe Ql (Unsp spec)DetectedCritically abnormalNOT DETECTEDThe [facility] on above:Result Comment: This test is not yet approved or cleared by the [place] FDA. When there are no FDA-approved or cleared tests available, and other criteria are met, FDA can make tests available under an emergency access mechanism called an Emergency Use Authorization (EUA). The EUA for this test is supported by the [place] of Health and Human Service's declaration that circumstances exist to justify the emergency use of in vitro diagnostics for the detection and/or diagnosis of the virusthat causes COVID-19. This EUA will remain in effect for the duration of the COVID-19 declaration ju stifying emergency of IVDs, unless it is terminated or revoked by the FDA (after which the test mayno longer be used).Performed By: #### CVDTBH ####[facility] [address] [place], [place] [address]Uk. Yilan ChangMG MAMM SCREEN 3D DUSTIN CADon 15-09-6595XQ MAMM SCREEN 3D DUSTIN CADPatient: BARBARA BACAFrieda Exam Date: 09/17/2021 : 1970 Gender:F Ordering : DR MONIKA DYKES . Admission #: [id number] Family : Order #: [id number] CLICK HERE TO VIEW EXAM RADIOLOGY REPORT PROCEDURE: MAMMOGRAM SCREENING 3D BILATERAL CAD COMPARISON: MG MAMM SCREEN 3D DUSTIN CAD, 05/08/2020. MAMMO POST BIOPSY RIGHT, 01/04/2018. INDICATIONS: Screening mammography Calculator Name NCI Breast Cancer Risk Assessment Tool 5 Year Breast Cancer Risk 1.00% Lifetime Breast Cancer Risk 9.60% Personal Breast Cancer No Personal Ovarian Cancer No Treatments None Family Cancers None LOCATION: [facility] BREAST COMPOSITION: Scattered areas fibroglandular density. [...] by: Anupam Rodarte M.D. on 09/17/2021 at 13:13[facility] HospitalFormson 78-00-8405Oddlv [id number]#1.00CD:127[facility] Educationon 76-91-5887Wyekdsp EducationObstetrics and Gynecology Overactive Bladder, Adult Overactive bladder [...] You may also have very sensitive muscles thatmake your bladder squeeze too soon. These symptoms [...] as stroke, dementia, Parkinson's disease, or multiple sclerosis(MS). ? Eat or drink things that irritate [...] pelvic floor muscles, which support your bladder. Toningthese muscles can help you control urination, even [...] weight loss methods that would work best foryou. ? Diet changes. This may include reducing [...] instructions ? Take ove (more content not included)...[facility] Physician Referralon 25-09-8425Pwhzwpiax Referral [id number]:127NormalUniversity Hospitals Elyria Medical CenterUrology Office/Clinic Noteon 96-46-7269Rpexnsn Office/Clinic NoteChief Complaint New Patient HPI Staff New Patient [...] had hysterectomy about 10 yrs ago. previous [employer] advised her bladderhad dropped a bit. still has her ovaries. [...] colleagues. Details of each procedure, success rates, recovery/downtimeexpectations, and risks were discussed at length. We [...] infection, and acute retention may occur. Long-term sideeffects such as non-acute retention, abscess formation, fibrosis (tissue hardening), de lluvia urgency, and necrosis are possible, but rare. Results and experiences may vary and are unique to each patient. The efficacy of the procedure may diminish over time and no promise or guarantee is made about specific results or experiences. Ordered: E&M of New Patient Moderate 45-59 Min [id number] Follow-up With When Contact Information pt will call once she decides how she would like to proceed Additional Instructions: Patient Education Overactive Bladder, Adult Urinary Incontinence Problem List/Past Medical History Ongoing No qualifying data Historical No qualifying data Procedure/Surgical History Hysterectomy. Medications diclofenac sodium 75 mg Oral EC Tab, Oral, BID loratadine-pseudoephedrine 10 mg-240 mg ER Tab, Oral, Daily [...] Given Postpone due to refusal [facility] HospitalComment on above:Result Comment: Electronically Signed By: MICHAEL NUGENT PA-C\.br\Date and Time Signed: 09/04/2208:42 EDT Ambulatory Visit Summaryon 07-57-0236Bujjqzjmam Visit Summary BARBARA BACA :1970 Visit Date:09/03/2021 Ambulatory Visit Instructions Your Diagnosis Stress incontinence Tests Performed Urnls Dip Stick Auto w/o Microscopy POC 19186 Your Care Team Attending Physician - MICHAEL NUGENT PA-C Primary Care Physician - Monika Dykes MD Referring Physician - Monika Dykes MD This Is Your Medications List diclofenac (diclofenac sodium 75 mg Oral EC Tab) loratadine-pseudoephedrine (loratadine-pseudoephedrine 10 mg-240 mg ER Tab) phentermine (phentermine [...] By Mouth 2 times a day Unchanged loratadine-pseudoephedrine (loratadine-pseudoephedrine 10 mg-240 mg ER Tab) By Mouth Every day Unchanged phentermine (phentermine 37.5 mg Tab) 1 Tablets By Mouth Every day What When Comments Stop Taking itraconazole (Sporanox 100 mg Cap) Every day Test Results Urnls Dip Stick Auto w/o Microscopy POC 64002 (09/03/2021) Bilirubin Urine Dipstick - Negative Blood Urine Dipstick - Trace-intact Glucose Urine Dipstick - Negative Ketones Urine Dipstick - Negative Leukocytes Urine Dipstick - Negative Nitrite Urine Dipstick - Negative Protein Urine Dipstick - Negative Specific [place] Urine Dipstick - 1.020 Urine Appearance Urine Dipstick - Clear Urine Color Urine Dipstick - Yellow Urobilinogen Urine Dipstick - Normal 0.2-1 EU/dl pH Urine Dipstick - 5 Medications and Immunizations Administered Not Given SARS-CoV-2 mRNA (tozinameran 5y-11y) vac, Postpone due to refusal Allergies No Known Allergies No Known Medication Allergies [facility] HospitalCB AUTO DIFFon 49-71-2660PROZ # 0.0 103/ulNormal0.0-0.1[facility] HospitalComment on above:Performed By: #### CBC #### [facility] [address] [address] [address] Dioni MayorgaBasophils/100 WBC (Bld)0.4 %Normal0.2-2.0[facility] Comment on above:Performed By: #### CBC #### [facility] [address] [address] [address] Dioni Robledo #0.1 103/ulNormal0.0-0.7The [facility] HospitalComment on above: Performed By: #### CBC #### [facility] [address] [address] [address] Dioni Omalleyosinophils/100 WBC (Bld)1.0 %Normal0.9-7.0[facility] Comment on above:Performed By: #### CBC #### [facility] [address] [address] [address] Dioni Omalleyrythrocyte distribution width (RBC) [Ratio]13.4 %Mdxceo01.0-15.0 [facility] HospitalComment on above:Performed By: #### CBC #### [facility] [address] [address] [address] Dioni MayorgaHematocrit (Bld) [Volume fraction]45.2 %Mtneqd52.0-48.0[facility]. [facility] HospitalComment on above:Performed By: #### CBC #### [facility] [address] [place] [address] Dr. Dioni MayorgaHemoglobin (Bld) [Mass/Vol]14.5 g/zFVgfhhb60.0-16.0The [facility]ittman Hospitalment on above:Performed By: #### CBC #### [facility] [address] [place] [address] Dr. Dioni Zhang #0.02 10e3/ulNormal0.00-0.03The [facility] HospitalComment on above:Performed By: #### CBC #### [facility] [address] [place] [address] Dr. Dioni Zhang %0.3 %Normal0.0-0.5The [facility] HospitalComuniversity of [facility] health on above: Performed By: #### CBC #### [facility] [address] [place] [address] Dr. Dioni Christensen #2.7 103/ulNormal1.2-3.8The [facility] HospitalComment on above:Performed By: #### CBC #### [facility] [address] [place] [address] Dr. Dioni Del Riohocytes/100 WBC (Bld)38.7 %Jldola24.5-60.0The [facility] on above:Performed By: #### CBC #### [facility] [address] [place] [address] Dr. Dioni VegaUAL DIFF REQNONormalThe [facility] HospitalComment on above: Performed By: #### CBC #### [facility] [address] [place] [address] Dr. Dioni Mckeon (RBC) [Entitic mass]28.4 tpBcakrv26.7-34.0The [facility] Hospitalment on above:Performed By: #### CBC #### [facility] [address] [place] [address] Dr. Dioni Mckeon (RBC) [Mass/Vol]32.1 g/xJUbxhne56.9-35.2The [facility] HospitalComment on above:Performed By: #### CBC #### [facility] [address] [address] [address] Dioni MckeonV (RBC) [Entitic vol]88.5 dNMstxlp43.0-99.0The [facility] HospitalComment on above:Performed By: #### CBC #### [facility] [address] [place] [address] Dr. Dioni Shah #0.4 103/ulNormal0.3-0.8The [facility] HospitalComment on above:Performed By: #### CBC #### [facility] [address] [place] [address] Dr. Dioni Díazocytes/100 WBC (Bld)6.2 %Normal1.7-12.0The [facility] on above:Performed By: #### CBC #### [facility] [address] [place] [address] Dr. Dioni Bishop #3.7 103/ulNormal1.4-6.5The [facility] HospitalComment on above:Performed By: #### CBC #### [facility] [address] [place] [address] Dr. Dioni Baxterutrophils/100 WBC (Bld)53.4 %Dyokiq14.0-75.0The [facility] HospitalComment on above:Performed By: #### CBC #### [facility] [address] [place] [address] Dr. Dioni Irvinlet mean volume (Bld) [Entitic vol]10.4 fLNormal9.5-13.5The [facility] HospitalComment on above:Performed By: #### CBC #### [facility] [address] [place] [address] Dr. Dioni MayorgaPLT340 103/mwSoypsa958-807Vfd [facility] HospitalComment on above: Performed By: #### CBC #### [facility] [address] [place] [address] Dr. Dioni MayorgaRBC5.11 106/ulNormal4.20-5.40The [facility] HospitalComment on above:Performed By: #### CBC #### [facility] [address] [address] [address] Dioni MayorgaWBC6.9 103/ulNormal4.0-11.0The [facility] on above: Performed By: #### CBC #### [facility] [address] [address] [address] Dioni Menard T3on 05-77-8146VIYT T31.49 pg/mlLCritically low2.18-3.98The [facility] on above:Performed By: #### FT3, LIPID, CMP, T7, TSH #### [facility] [address] [address] [address] Dioni Menard THYROXINE INDEX T7on 28-08-5718JHN3.88Kthdif1.30-4.50The [facility] on above:Performed By: #### FT3, LIPID, CMP, T7, TSH #### [facility] [address] [address] [address] Dioni MayorgaT3U36.0 %Hyocdr67.0-39.0The [facility] on above: Performed By: #### FT3, LIPID, CMP, T7, TSH #### [facility] [address] [address] [address] Dioni MayorgaT4 [Mass/Vol]7.70 ug/dLNormal4.80-13.90[facility] Comment on above:Performed By: #### FT3, LIPID, CMP, T7, TSH #### [facility] [address] [place] [address] Dr. Dioni MayorgaGLYCOHEMOGLOBIN A1Con 53-86-7567VFR RECOMMENDATIONSEE BELOWNormal The [facility] HospitalComuniversity of [facility] health on above:Result Comment: ADA RECOMMENDED LIMIT 4.0 - 6.0 ADA THERAPEUTIC TARGET < 7.0 ACTION SUGGESTED > 7.0Performed By: #### A1C #### [facility] [address] [place] [address] Dr. Dioni MayorgaGlucose [Mass/Vol]111 mg/dLNormalThe [facility] HospitalComment on above:Performed By: #### A1C #### [facility] [address] [address] [address] Dioni MayorgaHbA1c (Bld) [Mass fraction]5.5 %Normal4.5-6.2The [facility] on above:Performed By: #### A1C #### [facility] [address] [place] [address] Dr. Dioni BenderID PROFILEon 96-98-8547DDWP-HDL RATIO NORMSEE [facility] on above:Result Comment: 3.3 - 4.4 LOW RISK 4.4 - 7.1 AVERAGE RISK 7.1 - 11.0 MODERATE RISK >11.0 HIGH RISKPerformed By: #### FT3, LIPID, CMP, T7, TSH #### [facility] [address] [place] [address] Dr. Dioni Camachoesterol [Mass/Vol]211 mg/dLCritically high<=200The [facility] on above:Performed By: #### FT3, LIPID, CMP, T7, TSH #### [facility] [address] [place] [address] Dr. Dioni Camachoesterol in HDL [Mass/Vol]48 mg/kXGjvwbl55-22[facility]auAv[facility] on above:Performed By: #### FT3, LIPID, CMP, T7, TSH #### [facility] [address] [place] [address] Dr. Dioni Camachoesterol in LDL [Mass/Vol]148.6 mg/dLMemorial Health [facility] on above:Performed By: #### FT3, LIPID, CMP, T7, TSH #### [facility] [address] [place] [address] Dr. Dioni Acosta.total/Cholesterol in HDL [Mass ratio]4.4 {ratio} NormalAvita Health System [facility] Hospital on above:Performed By: #### FT3, LIPID, CMP, T7, TSH #### [facility] [address] [place] [address] Dr. Dioni Mandel NORMAL> or = 60 mg/dl - LOW CARDIOVASCULAR RISK <40 mg/dl - HIGH CARDIOVASCULAR RISKParkview Health Montpelier HospitalComment on above:Performed By: #### FT3, LIPID, CMP, T7, TSH #### [facility] [address] [address] [address] Dioni MayorgaLDL CALC NORMALSEE BELOWNoProMedica Bay Park HospitalComment on above:Result Comment: <100 mg/dl OPTIMAL 100 - 129 mg/dl NEAR OR ABOVE OPTIMAL 130 - 159 mg/dl BORDERLINE HIGH 160 - 189 mg/dl HIGH >190 mg/dl VERY HIGH Performed By: #### FT3, LIPID, CMP, T7, TSH #### [facility] [address] [address] [address] Dioni MayorgaTriglyceride [Mass/Vol]72 mg/dLNormal<=150The [facility] Comment on above:Performed By: #### FT3, LIPID, CMP, T7, TSH #### [facility] [address] [address] [address] Dioni MayorgaVLDL CALC14.4 mg/dLNoProMedica Bay Park HospitalComment on above: Performed By: #### FT3, LIPID, CMP, T7, TSH #### [facility] [address] [address] [address] Dioni MayorgaPROF 14(COMP METB)on 47-52-9714Bhmnhev [Mass/Vol]3.5 g/dLNormal 3.4-5.0The [facility] HospitalComment on above:Performed By: #### FT3, LIPID, CMP, T7, TSH #### [facility] [address] [address] [address] Dioni MayorgaAlbumin/Globulin [Mass ratio]1.0 {ratio}NormalThe [facility] HospitalComment on above:Performed By: #### FT3, LIPID, CMP, T7, TSH #### [facility] [address] [address] [address] Dioni Hughes [Catalytic activity/Vol]62 U/DArlqqe40-917Tnh [facility] HospitalComment on above:Performed By: #### FT3, LIPID, CMP, T7, TSH #### [facility] [address] [place] [address] Dr. Dioni Winters [Catalytic activity/Vol]20 U/DNyayne75-25Wur [facility] HospitalComment on above:Performed By: #### FT3, LIPID, CMP, T7, TSH #### [facility] [address] [place] [address] Dr. Dioni Mirandaon gap [Moles/Vol]14.0 mmol/LNormalSt. [facility] Hospital Comment on above:Performed By: #### FT3, LIPID, CMP, T7, TSH #### [facility] [address] [place] [address] Dr. Dioni Delgado [Catalytic activity/Vol]12 U/LCritically vzv91-44SqpSt. Vincent HospitalComment on above:Performed By: #### FT3, LIPID, CMP, T7, TSH #### [facility] [address] [place] [address] Dr. Dioni MayorgaBilirubin [Mass/Vol]0.4 mg/dLNormal0.2-1.0[facility] Comment on above:Performed By: #### FT3, LIPID, CMP, T7, TSH #### [facility] [address] [place] [address] Dr. Dioni MayorgaCalcium [Mass/Vol]8.7 mg/dLNormal8.5-10.1[facility] Comment on above:Performed By: #### FT3, LIPID, CMP, T7, TSH #### [facility] [address] [place] [address] Dr. Dioni MayorgaChloride [Moles/Vol]105 mmol/LRlakjk22-183RbvSt. Vincent Hospital Comment on above:Performed By: #### FT3, LIPID, CMP, T7, TSH #### [facility] [address] [place] [address] Dr. Dioni MayorgaCO2 [Moles/Vol]26.4 mmol/HLpxmvm84.0-32.0The [facility] Comment on above:Performed By: #### FT3, LIPID, CMP, T7, TSH #### [facility] Laboratory [address] [place] [address] Dr. Dioni MayorgaCreatinine [Mass/Vol]0.83 mg/dLNormal0.55-1.02[facility] HospitalComment on above:Performed By: #### FT3, LIPID, CMP, T7, TSH #### [facility] [address] [place] [address] Dr. Dioni OmalleyGFR-AF CYMRO>60Normal>=60The [facility] HospitalComment on above:Performed By: #### FT3, LIPID, CMP, T7, TSH #### [facility] [address] [place] [address] Dr. Dioni OmalleyGFR-NON AF CYMRO>60Normal>=60The [facility] HospitalComment on above:Performed By: #### FT3, LIPID, CMP, T7, TSH #### [facility] [address] [place] [address] Dr. Dioni MayorgaGlobulin (S) [Mass/Vol]3.5 g/dLNormalThe [facility] HospitalComment on above:Performed By: #### FT3, LIPID, CMP, T7, TSH #### [facility] [address] [place] [address] Dr. Dioni MayorgaGlucose [Mass/Vol]78 mg/nEAibuxz98-397RluSt. Vincent Hospital Comment on above:Performed By: #### FT3, LIPID, CMP, T7, TSH #### [facility] [address] [place] [address] Dr. Dioni MayorgaPotassium [Moles/Vol]4.4 mmol/LNormal3.5-5.1[facility] Comment on above:Performed By: #### FT3, LIPID, CMP, T7, TSH #### [facility] [address] [place] [address] Dr. Dioni MayorgaProtein [Mass/Vol]7.0 g/dLNormal6.4-8.2[facility] Comment on above:Performed By: #### FT3, LIPID, CMP, T7, TSH #### [facility] [address] [address] [address] Dioni MayorgaSodium [Moles/Vol]141 mmol/FPxqctt608-190Xrx [facility] Comment on above:Performed By: #### FT3, LIPID, CMP, T7, TSH #### [facility] [address] [address] [address] Dioni MayorgaUrea nitrogen [Mass/Vol]16.0 mg/dLNormal7.0-18.0The [facility] HospitalComment on above:Performed By: #### FT3, LIPID, CMP, T7, TSH #### [facility] [address] [address] [address] Dioni MayorgaUrea nitrogen/Creatinine [Mass ratio]19.3 mg/mgNormalThe [facility] HospitalComment on above:Performed By: #### FT3, LIPID, CMP, T7, TSH #### [facility] [address] [address] [address] Dioni Hernandez 60-04-8904WLN0.339 uIU/mLNormal0.358-3.740The [facility] HospitalComment on above:Performed By: #### FT3, LIPID, CMP, T7, TSH #### [facility] [address] [address] [address] Dioni Mayorga Vital Signs Date TimeVital SignValuePerforming PousgsppbNmmhmhrw70-95-4129 08:51-0400Blood Pressure LocationJENNIFER RAFFI [facility] 07-20-2022 08:51-0400Diastolic blood dbvhptjy62 mm[Hg] MICHAEL RAFFI [facility] 07-20-2022 08:51-0400Heart xtlm006 /minJENNIFER RAFFI [facility] 07-20-2022 08:51-0400Systolic blood meslvtve700 mm[Hg] MICHAEL NUGENT [facility] Encounters Encounter DateEncounter TypeCare ProviderFacilityStart: 07-31-2024 End: 73-42-7991qdnjgbsqopCjzbtsj Vytautas Giedraitis MDFacility:[facility] Start: 06-19-2024 End: 90-60-5985yokohxpzboCjlqylb Vytautas Giedraitis MDFacility:[facility] Start: 09-13-2023 End: 89-19-9941ocwtgemzquBbotbja Vytautas Giedraitis MDFacility:[facility] Start: 03-02-2022 End: 88-16-4946xqyxcdyduxICMAMETV EBERLYFacility:R2Jtocl: 12-15-2021 End: 56-89-3586ohwgfbwnmjYBGDPGOC EBERLYFacility:I6Zjwff: 12-09-2021 End: 29-53-1022rojlwizyomMRMHCJGN EBERLYFacility:C2Cgzux: 09-17-2021 End: 71-59-7717vidlxnswhfOY MONIKA HOYFacility:C7Cxeak: 13-66-9449jhjplpamyaAP MONIKA HOYFacility:H1Nyzkw: 09-03-2021 End: 14-54-4025Jamasrx encounter procedureMICHAEL Vin NUGENT [facility] start: 32-97-4483Mqabobvje for general adult medical examination without abnormal findingsDR MONIKA HOYThe [facility]: 08-02-2021 End: 00-79-7140fulvfwmqgrDV MONIKA HOYFacility:F7Aallr: 08-02-2021 End: 88-13-7477Ihvwvkrfz for general adult medical examination without abnormal findingsDR MONIKA HOYFacility:H1 Procedures DateProcedureProcedure DetailPerforming ClinicianHysterectomyJENNIFER RAFFI Immunizations Immunization DateImmunizationNotesCare ProviderFacilityNEGATED: Highlighted row has not occurred!72-24-0150VHHW-CoV-2 mRNA (tozinameran 5y-11y) vaccineJENNIFER RAFFI [facility] Payers DatePayer CategoryPayerPolicy [id number] [id number] 2.16.840.1.610010.3.57[id number] 2.16.840.1.325288.3.57[id number] 2.16.840.1.122704.3.57[id number] 2.16.840.1.521062.3.57[id number] 2.16.840.1.409168.3.57[id number] 2.16.840.1.147085.3.57[id number] 2.16.840.1.464031.3.57[id number] 2.16.840.1.984280.3.57[id number] 2.16.840.1.744902.3.579.2.196 Social History DateTypeDetailFacilityStart: 59-11-5856Oeccbkg smoking statusNever smoked tobacco (finding)[facility] Tobacco smoking statusNeverExec[facility] sex Assigned At BirthFemaleExec[facility] Functional Status XtkqLoaopipfbiJazualGjmcxgqj18-09-0611Kussejtdvi StatusN/AExec[facility] Discharge instructions 09-03-2021 Note Date & XnfyGdhaGjdxksxr49-71-7015 Hospital Discharge instructions Patient Education 09/03/2021 11:37:17 Urinary Incontinence Urinary Incontinence Urinary incontinence refers to a condition in which a person is unable to control where and when topass urine. A person with this condition will urinate when he or she does not mean to (involuntarily). What are the causes? This condition may be caused by: Medicines. Infections. Constipation. Overactive bladder muscles. Weak bladder muscles. Weak pelvic floor muscles. These muscles provide support for the bladder, intestine, and, in women,the uterus. Enlarged prostate in men. The prostate [...] (electrical nerve stimulation). For women, using a caregivers non medical to prevent urine leaks. This is a [...] right after experiencing incontinence. General instructions Take zdhp-vur-ioctfug and prescription medicines only as told by [...] is unable to control where and when topass urine. This condition may be caused by [...] 03/11/2005 Document Revised: 02/11/2018 Document Reviewed: 05/13/2017 [employer] Patient Education 2019 [employer] Follow Up Care 08/06/2021 08:10:07 With:pt will call once she decides how she would like to proceed Address:Unknown When: Unknown [facility] Evaluation + Plan note Note Date & TypeNoteFacilityEvaluation + Plan note Future Appointments Appointment Date:09/17/2021 08:30:00 AM Scheduled Provider: Location:[facility] Appointment Type:URO Nurse Visit [facility] Hospital course Narrative Note Date & TypeNoteFacilityHospital course Narrative No data available for this section [facility] Progress note Note Date & TypeNoteFacilityProgress note No data available for this section [facility] Summary Purpose Family History No Family History Records FoundNo Family History Records FoundNo Family History Records Found Advance Directives No Advanced Directives Records FoundNo Advanced Directives Records FoundNo Advanced Directives Records Found Additional Source Comments Care Team (unrecognized sect ion and content) Personnel Name: Monika Dykes MD Address: [address] [place] [address] INFORMATION SOURCE (unrecogn ized section and content) DATE CREATED AUTHOR 09/18/2021 [facility] DATE CREATED AUTHOR AUTHOR'S ORGANIZ ATION 03/02/2022 [facility] DATE CREATED AUTHOR AUTHOR'S ORGANIZ ATION 08/09/2024 [facility] FOR RECORDS PERTAINING TO PATIENTS WHO [...] BE BASED ON THE PRIMARY CLINICAL RECORDS. [employer] provides no warranty or guarantee of the accuracy or completeness of information in this document.
--- NOTE | 2025-02-12 13:38 | PM.CN ---
Consult Note: HPI Data of Consult Patient: known to practice within the last 3 years Consult date: 02/12/25 Requesting Physician: Harish Cannon MD Primary Care Provider: Romero Dykes MD Consult Narrative Reason for consult: low back, bilateral lower extremity pain Narrative: 54yof who presents for assessment. endorses persistence of pain throughout low back, lower extremities. imaging reviewed, significant for multilevel stenosis in lower lumbar spine. continues to engage in a series of provider directed home exercises >6 weeks, without lasting benefit. uses gabapentin, baclofen. underwent intracept procedure at l5-s1 about 1.5 weeks ago. cc:: CC: Harish Cannon MD Review of Systems ROS Status of ROS 10 or more systems reviewed and unremarkable except as noted in history and below PFSH [facility] Medical History Low back ache ?M54.50 - Low back pain, unspecified (ICD-10) Obesity ?E66.9 - Obesity, unspecified (ICD-10) Surgical History H/O tooth extraction ?K08.409 - Partial loss of teeth, unspecified cause, unspecified class (ICD-10) H/O: hysterectomy ?Z90.710 - Acquired absence of both cervix and uterus (ICD-10) Social History Smoking status: Never smoker Meds Home Medications and Allergies Home Medications ?Medication ?Instructions ?Recorded ?Confirmed ?Type loratadine-pseudoephedrine ER 10 1 tab PO DAILY 11/02/22 07/31/24 History mg-240 mg tablet,extended slhtnwa63gs (Claritin-D 24 Hour) acetaminophen 325 mg tablet 325 mg PO Q6H PRN pain 12/21/23 07/31/24 History (Tylenol) gabapentin 100 mg capsule 100 mg PO Q8H 01/04/24 07/31/24 History gabapentin 100 mg capsule See Rx Instructions .Route 03/29/24 07/31/24 Rx .COMPLEX #60 caps gabapentin 300 mg capsule 300 mg PO BID #60 caps 08/10/24 Rx baclofen 10 mg tablet 10 mg PO DAILY #30 tabs 08/21/24 Rx diclofenac sodium 75 mg 75 mg PO BID PRN pain #60 tabs 10/18/24 Rx tablet,delayed release Allergies Allergy/AdvReac Type Severity Reaction Status Date / Time No Known Drug Allergies Allergy Verified 07/31/24 11:02 Exam Narrative Exam Narrative: Psych-alert and oriented x 3. Attentive and appropriate, constitutionally normal, displays normal mood and affect per situation. There are no obvious deficits in memory, reasoning, or intellect.? Skin-no obvious rashes, bruising, erythema noted to the patient's area of pain.? Extremities- extremities are warm with minimal edema and palpable pulses. Lumbar-tenderness to palpation noted in the lumbar spine and paraspinal musculature. Pain is elicited with flexion, extension, and lateral rotation of the lumbar spine. Range of motion is diminished with these motions. Facet loading maneuvers are positive.? Strength-noted to be unremarkable with the exception of decreased strength rated at 4 out of 5 in bilateral quadriceps femoris, anterior tibialis. Sensory-no notable sensory deficits in the bilateral lower extremities to touch or pinprick in all dermatomal distributions with the exception to decreased sensation to the bilateral L4, 5, S1 dermatomal distribution Coordination remains intact.? Gait remains non-antalgic. Assessment and Plan Assessment and Plan (1) Lumbar stenosis without neurogenic claudication: Plan 54yof who presents for assessment. failed conservative measures, as noted. imaging reviewed, as noted. discussed that still too early to determine efficacy of basivertebral nerve ablation. in terms of ongoing pain, discussed that given her symptoms and imaging, prudent to attempt bilateral l5-s1 tfesi under fluoroscopic guidance. she is in agreement. may also benefit from lumbar rfa at some point, which she underwent last 7 months ago. mri shows severe facet arthropathy in lower lumbar spine. meds reviewed, no changes. follow up after procedure.
== END 2025-02-12 12:42 | disposition home or self-care (01) ==
LOC: PM 12:42
PROVIDERS: PCP Family Medicine; Visit Provider Anesthesiology
DX: M48.062 Spinal stenosis, lumbar region with neurogenic claudication (principal)
CPT/HCPCS: G0463